=== PATIENT | female | born 1955 | race Hispanic/Latino ===

== ENCOUNTER 2017-12-04 18:04 | Emergency (ER) | payer OTHER ==
[2017-12-04 18:58] LABS: Absolute Lymphocytes (CBC) 2.3 K/uL (0.7-4.9); Absolute Monocytes 0.7 K/uL (0.1-1.3); Absolute Neutrophil 6.7 K/uL (1.8-8.0); Basophils % 0.6 % (0-1.3); Eosinophils % 0.9 % (0-4.4); Hematocrit 38.1 % (36.0-45.0); Lymphocytes % 23.3 % (15.3-44.8); MCH 31.8 pg (27.0-35.0); MCV 93.2 fL (80-100); MPV 9.8 fL (7.6-11.3); Monocytes % 6.7 % (3.3-12.3); RBC Red Blood Cell Count 4.09 M/uL (3.86-4.86)
[2017-12-04 19:14] LABS: Albumin 3.1 g/dL (3.4-5.0); Bilirubin Direct 0.1 mg/dL (0-0.2); Bilirubin Total 0.3 mg/dL (0.2-1.0); Potassium 4.2 mmol/L (3.5-5.1); Protein, Total 7.1 g/dL (6.4-8.2)
[2017-12-04 19:52] LABS: Urine Blood NEGATIVE (NEG); Urine Glucose 1+ (NEG); Urine Protein NEGATIVE (NEG); Urine Specific Gravity 1.015 (1.005-1.030)
[2017-12-04 20:05] LABS: Urine Bacteria <20 /HPF (<20); Urine Culture Reflex Order REFLEXED; Urine RBC <5 /HPF (NONE SEEN); Urine Yeast MANY (NONE SEEN)
[2017-12-04] MEDS ORDERED: NA CHLORIDE 0.9% 1,000 ML ONE (21:08)
[2017-12-04] MEDS ORDERED: KETOROLAC 30 MG/ML INJ ONE (21:08)
[2017-12-04] MEDS ORDERED: DIAZEPAM 2 MG TABLET ONE (22:09)
[2017-12-04] MEDS ORDERED: FLUCONAZOLE 100 MG TAB ONE (22:18)
--- NOTE | 2017-12-04 22:33 | EDPHYS ---
Physician Documentation [facility] Name: Liss Ro Age: 62 yrs Sex: Female : 1955 Arrival Date: 12/04/2017 Time: 18:08 Bed 26 Private MD: ED Physician Magnus Pitt HPI: 12/04 20:00 This 62 yrs old Female presents to ER via EMS with complaints of Shoulder pm1 Pain, High Blood Sugar. 20:00 The patient or guardian complains of decreased range of motion, pain. left scapular pm1 area. Context: The problem was sustained at home, resulted from an unknown reason, The patient experiences decreased range of motion, when attempts to raise arm, The patient reports no obvious deformity. Onset: The symptoms/episode began/occurred 2 day(s) ago. Modifying factors: the symptoms are alleviated by Resting left arm, The symptoms are aggravated by rotation of arm, movement of left arm. Associated signs and symptoms: Pertinent negatives: abdominal pain, chest pain, neck pain, Numbness in left arm shortness of breath, tingling, Weakness in left arm. Severity of symptoms: in the emergency department the symptoms are actually worse. Patient reports difficulty with managing her blood sugars. Patient reports some mild burning with urination. Historical: - Allergies: 18:11 Bactrim; kr2 18:11 Codeine; kr2 18:11 Flagyl; kr2 18:11 Morphine; kr2 18:11 tramadol; kr2 - Home Meds: 18:19 lisinopril 20 mg Oral tab 1 tab [Active]; amlodipine 10 mg tab 1 tab once daily rv [Active]; - PMHx: 18:11 Anxiety; Diabetes - IDDM; Herniated disc; Hypertension; Positional Vertigo; PTSD; kr2 - PSHx: 18:11 Hysterectomy; Cholecystectomy; Carpal Tunnel Repair; Eye surgery; kr2 - Immunization history:: Adult Immunizations unknown. - Social history:: Smoking status: Patient/guardian denies using tobacco. - Ebola Screening: : No symptoms or risks identified at this time. ROS: 20:00 Constitutional: Negative for fever, chills, and weight loss, Eyes: Negative for injury, pm1 pain, redness, and discharge, ENT: Negative for injury, pain, and discharge, Neck: Negative for injury, pain, and swelling, Cardiovascular: Negative for chest pain, palpitations, and edema, Respiratory: Negative for shortness of breath, cough, wheezing, and pleuritic chest pain, Abdomen/GI: Negative for abdominal pain, nausea, vomiting, diarrhea, and constipation. 20:00 MS/Extremity: Negative for injury and deformity, Skin: Negative for injury, rash, and discoloration, Neuro: Negative for headache, weakness, numbness, tingling, and seizure. 20:00 Back: Positive for of the left scapular area, Pain with movement of left arm. 20:00 : Positive for burning with urination, Negative for vaginal bleeding, vaginal discharge, vaginal itching. Exam: 20:00 Constitutional: This is a well developed, well nourished patient who is awake, alert, pm1 and in no acute distress. Head/Face: Normocephalic, atraumatic. Eyes: Pupils equal round and reactive to light, extra-ocular motions intact. Lids and lashes normal. Conjunctiva and sclera are non-icteric and not injected. Cornea within normal limits. Periorbital areas with no swelling, redness, or edema. ENT: Nares patent. No nasal discharge, no septal abnormalities noted. Tympanic membranes are normal and external auditory canals are clear. Oropharynx with no redness, swelling, or masses, exudates, or evidence of obstruction, uvula midline. Mucous membranes moist. Neck: Trachea midline, no thyromegaly or masses palpated, and no cervical lymphadenopathy. Supple, full range of motion without nuchal rigidity, or vertebral point tenderness. No Meningismus. Chest/axilla: Normal chest wall appearance and motion. Nontender with no deformity. No lesions are appreciated. Cardiovascular: Regular rate and rhythm with a normal S1 and S2. No gallops, murmurs, or rubs. Normal PMI, no JVD. No pulse deficits. Respiratory: Lungs have equal breath sounds bilaterally, clear to auscultation and percussion. No rales, rhonchi or wheezes noted. No increased work of breathing, no retractions or nasal flaring. Abdomen/GI: Soft, non-tender, with normal bowel sounds. No distension or tympany. No guarding or rebound. No evidence of tenderness throughout. 20:00 Skin: Warm, dry with normal turgor. Normal color with no rashes, no lesions, and no evidence of cellulitis. 20:00 Back: muscle spasm, is appreciated in the left scapular area. 20:00 Musculoskeletal/extremity: Extremities: grossly normal except: noted in the left scapular area and left shoulder: with palpation and passive rotation of left arm, Circulation is intact in all extremities. Pulses: noted to be 2+ in the left radial artery, the left arm Sensation intact. 20:00 Neuro: Orientation: is normal, Motor: is normal, moves all fours. Vital Signs: 18:16 BP 148 / 65; Pulse 102; Resp 18; Pulse Ox 100% on R/A; Weight 94.8 kg; Height 4 ft. 11 kr2 in. (149.86 cm); 20:03 BP 130 / 70; Pulse 99; Pulse Ox 98% on R/A; rv 20:57 BP 136 / 65; Pulse 118; Pulse Ox 97% on R/A; rv 21:52 BP 134 / 69; Pulse 100; Pulse Ox 99% on R/A; rv 18:16 Body Mass Index 42.21 (94.80 kg, 149.86 cm) kr2 MDM: 18:21 Patient medically screened. pm1 22:30 Data reviewed: vital signs. Data interpreted: Pulse oximetry: on room air is 99 %. pm1 Interpretation: normal. Counseling: I had a detailed discussion with the patient and/or guardian regarding: the historical points, exam findings, and any diagnostic results supporting the discharge/admit diagnosis, lab results, the need for outpatient follow up, to return to the emergency department if symptoms worsen or persist or if there are any questions or concerns that arise at home. 12/04 18:35 Order name: Basic Metabolic Panel pm1 12/04 18:35 Order name: CBC with Diff; Complete Time: 20:32 pm1 12/04 18:35 Order name: Hepatic Function; Complete Time: 20:32 pm1 12/04 18:35 Order name: Lipase; Complete Time: 20:32 pm1 12/04 18:35 Order name: Urine Microscopic Only; Complete Time: 20:32 pm1 12/04 18:36 Order name: Basic Metabolic Panel; Complete Time: 20:32 EDMS 12/04 18:35 Order name: IV Saline Lock; Complete Time: 18:50 pm1 12/04 19:47 Order name: Urine Dipstick--Ancillary (enter results); Complete Time: 20:32 mw2 12/04 20:07 Order name: Urine Culture EDAL 12/04 18:35 Order name: Labs collected and sent; Complete Time: 18:50 pm1 12/04 18:35 Order name: Urine Dipstick-Ancillary (obtain specimen); Complete Time: 19:55 pm1 Administered Medications: 18:51 Drug: NS 0.9% 1000 ml Route: IV; Rate: 1000 ml; Site: right antecubital; rv 19:55 Follow up: IV Status: Completed infusion rv 21:18 Drug: NS 0.9% 1000 ml Route: IV; Rate: 1000 ml; Site: right antecubital; rv 23:54 Follow up: Response: No adverse reaction; IV Status: Completed infusion rv 21:19 Drug: TORadol 30 mg Route: IVP; Site: right antecubital; rv 21:52 Follow up: Response: No adverse reaction; Pain is decreased rv 22:07 Drug: Valium 2 mg Route: PO; rv 22:56 Follow up: Response: No adverse reaction; Pain is decreased rv 22:20 Drug: DiFLUcan 150 mg Route: PO; rv 22:56 Follow up: Response: No adverse reaction rv Point of Care Testing: Blood Glucose: 18:18 Blood Glucose: 270 mg/dL; rv Ranges: Critical Glucose Levels:Adult <50 mg/dl or >400 mg/dl <40 mg/dl or >180 mg/dl Disposition: 12/04/17 22:32 Discharged to Home. Impression: Hyperglycemia, unspecified, Strain of muscle and tendon of back wall of thorax, Candidiasis of other urogenital sites. - Condition is Stable. - Discharge Instructions: Hyperglycemia, Muscle Strain, Vaginal Yeast Infection, Adult, Blood Glucose Monitoring, Adult. - Prescriptions for Valium 2 mg Oral Tablet - take 1 tablet by ORAL route every 8 hours As needed; 10 tablet. - Medication Reconciliation Form, Thank You Letter, Antibiotic Education, Prescription Opioid Use form. - Follow up: Emergency Department; When: As needed; Reason: Worsening of condition. Follow up: Private Physician; When: 2 - 3 days; Reason: Recheck today's complaints, Continuance of care, Re-evaluation by your physician. - Problem is new. - Symptoms have improved. Addendum: 12/07/2017 07:22 Co-signature as Attending Physician, Magnus Pitt MD I agree with the assessment and k dr plan of care. Signatures: Dispatcher [employer] EDMS Magnus Pitt MD MD [facility] Robin Lagunas NP GRAD INTERN pm1 Angelic Fonseca, RN RN kr2 Reji Le RN RN rv Corrections: (The following items were deleted from the chart) 12/04 22:57 22:32 12/04/2017 22:32 Discharged to Home. Impression: Hyperglycemia, unspecified; rv Strain of muscle and tendon of back wall of thorax; Candidiasis of other urogenital sites. Condition is Stable. Forms are Medication Reconciliation Form, Thank You Letter, Antibiotic Education, Prescription Opioid Use. Follow up: Emergency Department; When: As needed; Reason: Worsening of condition. Follow up: Private Physician; When: 2 - 3 days; Reason: Recheck today's complaints, Continuance of care, Re-evaluation by your physician. Problem is new. Symptoms have improved. pm1
--- NOTE | 2017-12-04 22:33 | ER ---
Nurse's Notes [facility] Name: Liss Ro Age: 62 yrs Sex: Female : 1955 Arrival Date: 12/04/2017 Time: 18:08 Bed 26 Private MD: Diagnosis: Hyperglycemia, unspecified;Strain of muscle and tendon of back wall of thorax;Candidiasis of other urogenital sites Presentation: 12/04 18:12 Presenting complaint: EMS states: patient complains of left shoulder pain, in the kr2 scapula area that she has had for 2 days but it has gotten worse. She has also had trouble controlling her blood sugar. At 3:30pm she took 10 units of Novolog, her blood sugar was 264 at 5:23pm and when we arrived on scene it was 316. Transition of care: patient was not received from another setting of care. Onset of symptoms was December 02, 2017. Risk Assessment: Do you want to hurt yourself or someone else? Patient reports no desire to harm self or others. Initial Sepsis Screen: Does the patient meet any 2 criteria? No. Patient's initial sepsis screen is negative. Does the patient have a suspected source of infection? No. Patient's initial sepsis screen is negative. Care prior to arrival: Medication(s) given: Normal saline infusion, IV initiated. 20 GA, in the left antecubital area. 18:12 Acuity: MALINI 3 kr2 18:12 Method Of Arrival: EMS: [facility] kr2 Triage Assessment: 18:16 General: Appears in no apparent distress. comfortable, obese, well groomed, Behavior is kr2 cooperative, anxious. Pain: Complains of pain in left scapular area Pain does not radiate. Pain currently is 6 out of 10 on a pain scale. Quality of pain is described as aching, Is continuous, Alleviated by nothing. Historical: - Allergies: 18:11 Bactrim; kr2 18:11 Codeine; kr2 18:11 Flagyl; kr2 18:11 Morphine; kr2 18:11 tramadol; kr2 - Home Meds: 18:19 lisinopril 20 mg Oral tab 1 tab [Active]; amlodipine 10 mg tab 1 tab once daily rv [Active]; - PMHx: 18:11 Anxiety; Diabetes - IDDM; Herniated disc; Hypertension; Positional Vertigo; PTSD; kr2 - PSHx: 18:11 Hysterectomy; Cholecystectomy; Carpal Tunnel Repair; Eye surgery; kr2 - Immunization history:: Adult Immunizations unknown. - Social history:: Smoking status: Patient/guardian denies using tobacco. - Ebola Screening: : No symptoms or risks identified at this time. Screenin:12 Abuse screen: Denies threats or abuse. Denies injuries from another. Nutritional kr2 screening: No deficits noted. Tuberculosis screening: No symptoms or risk factors identified. Fall Risk None identified. Assessment: 18:17 General: Appears in no apparent distress. comfortable, Behavior is calm, cooperative. rv Pain: Complains of pain in LEFT SHOULDER. Neuro: Level of Consciousness is awake, alert, obeys commands, Oriented to person, place, time, situation. Cardiovascular: Capillary refill < 3 seconds. Respiratory: Airway is patent. GI: No signs and/or symptoms were reported involving the gastrointestinal system. : No signs and/or symptoms were reported regarding the genitourinary system. EENT: No signs and/or symptoms were reported regarding the EENT system. Derm: Skin is intact. 18:20 Reassessment: PATIENT TOOK 10 UNITS OF NOVLOG AT 1533 AND ASPIRIN CHEWABLES 2 TABLETS rv AT 1650. 20:03 Reassessment: Patient appears in no apparent distress at this time. Patient and/or rv family updated on plan of care and expected duration. Pain level reassessed. Patient is alert, oriented x 3, equal unlabored respirations, skin warm/dry/pink. Vital Signs: 18:16 BP 148 / 65; Pulse 102; Resp 18; Pulse Ox 100% on R/A; Weight 94.8 kg; Height 4 ft. 11 kr2 in. (149.86 cm); 20:03 BP 130 / 70; Pulse 99; Pulse Ox 98% on R/A; rv 20:57 BP 136 / 65; Pulse 118; Pulse Ox 97% on R/A; rv 21:52 BP 134 / 69; Pulse 100; Pulse Ox 99% on R/A; rv 18:16 Body Mass Index 42.21 (94.80 kg, 149.86 cm) kr2 ED Course: 18:08 Patient arrived in ED. kr2 18:15 Triage completed. kr2 18:17 Robin Lagunas NP is PHCP. pm1 18:17 Magnus Pitt MD is Attending Physician. pm1 18:17 Arm band placed on. kr2 18:17 Patient has correct armband on for positive identification. Bed in low position. Call kr2 light in reach. Side rails up X2. Pulse ox on. NIBP on. Door closed. Warm blanket given. Head of bed elevated. 22:57 No provider procedures requiring assistance completed. IV discontinued, bleeding rv controlled, No redness/swelling at site. Pressure dressing applied. 23:54 Basic Metabolic Panel Sent. rv Administered Medications: 18:51 Drug: NS 0.9% 1000 ml Route: IV; Rate: 1000 ml; Site: right antecubital; rv 19:55 Follow up: IV Status: Completed infusion rv 21:18 Drug: NS 0.9% 1000 ml Route: IV; Rate: 1000 ml; Site: right antecubital; rv 23:54 Follow up: Response: No adverse reaction; IV Status: Completed infusion rv 21:19 Drug: TORadol 30 mg Route: IVP; Site: right antecubital; rv 21:52 Follow up: Response: No adverse reaction; Pain is decreased rv 22:07 Drug: Valium 2 mg Route: PO; rv 22:56 Follow up: Response: No adverse reaction; Pain is decreased rv 22:20 Drug: DiFLUcan 150 mg Route: PO; rv 22:56 Follow up: Response: No adverse reaction rv Point of Care Testing: Blood Glucose: 18:18 Blood Glucose: 270 mg/dL; rv Ranges: Outcome: 22:32 Discharge ordered by MD. pm1 22:57 Discharged to home ambulatory. rv 22:57 Condition: improved 22:57 Discharge instructions given to patient, Instructed on discharge instructions, follow up and referral plans. medication usage, Prescriptions given X 1. 22:57 Patient left the ED. rv Signatures: Robin Lagunas, JADEN FIELD SUPPORT ENGINEER pm1 Angelic Fonseca RN RN kr2 Reji Le, RN RN rv
[2017-12-04 23:05] VITALS: BP 134/69; O2SAT 99
== END 2017-12-04 22:57 | disposition home or self-care (01) ==
LOC: ER 18:04
DX: E11.65 Type 2 diabetes mellitus with hyperglycemia (principal); S29.012A Strain of muscle and tendon of back wall of thorax, initial encounter; B37.49 Other urogenital candidiasis; I10 Essential (primary) hypertension; F41.9 Anxiety disorder, unspecified; Z88.1 Allergy status to other antibiotic agents; Z88.5 Allergy status to narcotic agent; Z88.6 Allergy status to analgesic agent; Z88.8 Allergy status to other drugs, medicaments and biological substances
CPT/HCPCS: 36415; 80048; 80076; 83690; 85025; 87086; 87088; 96361; 96374; 99284; J7030; 81003; 81015; 82962

== ENCOUNTER 2018-03-02 02:04 | Emergency (ER) | payer OTHER ==
--- NOTE | 2018-03-02 02:26 | EDPHYS ---
Physician Documentation [facility] Name: Liss Ro Age: 62 yrs Sex: Female : 1955 Arrival Date: 03/02/2018 Time: 02:05 Bed 18 Private MD: ED Physician Donnie Chávez HPI: 03/02 02:36 This 62 yrs old Female presents to ER via EMS with complaints of Toothache. snw 02:36 The patient presents with broken tooth/teeth. The problem is located in the lower right snw second molar (#31). Onset: The symptoms/episode began/occurred gradually, 1 month(s) ago, and became worse and became persistent. Duration: The symptoms are continuous. Associated signs and symptoms: Pertinent positives: pain. Severity of symptoms: At their worst the symptoms were moderate, severe. The patient has experienced a previous episode. The patient has not recently seen a physician, the patient's primary care provider is Dr. Brooklyn Valderrama. Pt very agitated and demanding pain medication. States she took a little codeine even though she is allergic because the pain is so bad. Pt interviewed as to what medications have worked for her in the past and she said whatever she was given here before for back pain. Records indicate she was given Toradol. Pt states she will f/u with Dentist "when I can". Historical: - Allergies: 02:06 Bactrim; ak1 02:06 Codeine; ak1 02:06 tramadol; ak1 02:06 Morphine; ak1 02:06 Flagyl; ak1 - Home Meds: 02:06 amlodipine 10 mg tab 1 tab once daily [Active]; lisinopril 20 mg Oral tab 1 tab ak1 [Active]; - PMHx: 02:06 Anxiety; Diabetes - IDDM; Herniated disc; Hypertension; Positional Vertigo; PTSD; ak1 - PSHx: 02:06 Hysterectomy; Carpal Tunnel Repair; Eye surgery; Cholecystectomy; ; ak1 - Immunization history:: Adult Immunizations unknown. - Social history:: Smoking status: Patient/guardian denies using tobacco. - Ebola Screening: : No symptoms or risks identified at this time. ROS: 02:35 Constitutional: Negative for fever, chills, and weight loss, Eyes: Negative for injury, snw pain, redness, and discharge, Neck: Negative for injury, pain, and swelling, Cardiovascular: Negative for chest pain, palpitations, and edema, Respiratory: Negative for shortness of breath, cough, wheezing, and pleuritic chest pain, Abdomen/GI: Negative for abdominal pain, nausea, vomiting, diarrhea, and constipation, Back: Negative for injury and pain, : Negative for injury, bleeding, discharge, and swelling, MS/Extremity: Negative for injury and deformity, Skin: Negative for injury, rash, and discoloration, Neuro: Negative for headache, weakness, numbness, tingling, and seizure. 02:35 ENT: Positive for dental pain. Exam: 02:34 Constitutional: This is a well developed, well nourished patient who is awake, alert, snw and in no acute distress. Head/Face: Normocephalic, atraumatic. Eyes: Pupils equal round and reactive to light, extra-ocular motions intact. Lids and lashes normal. Conjunctiva and sclera are non-icteric and not injected. Cornea within normal limits. Periorbital areas with no swelling, redness, or edema. Neck: Trachea midline, no thyromegaly or masses palpated, and no cervical lymphadenopathy. Supple, full range of motion without nuchal rigidity, or vertebral point tenderness. No Meningismus. Chest/axilla: Normal chest wall appearance and motion. Nontender with no deformity. No lesions are appreciated. Cardiovascular: Tachycardic rate and rhythm with a normal S1 and S2. No gallops, murmurs, or rubs. Normal PMI, no JVD. No pulse deficits. Respiratory: Lungs have equal breath sounds bilaterally, clear to auscultation and percussion. No rales, rhonchi or wheezes noted. No increased work of breathing, no retractions or nasal flaring. Abdomen/GI: Soft, non-tender, with normal bowel sounds. No distension or tympany. No guarding or rebound. No evidence of tenderness throughout. Back: No spinal tenderness. No costovertebral tenderness. Full range of motion. Skin: Warm, dry with normal turgor. Normal color with no rashes, no lesions, and no evidence of cellulitis. MS/ Extremity: Pulses equal, no cyanosis. Neurovascular intact. Full, normal range of motion. Neuro: Awake and alert, GCS 15, oriented to person, place, time, and situation. Cranial nerves II-XII grossly intact. Motor strength 5/5 in all extremities. Sensory grossly intact. Cerebellar exam normal. Normal gait. Psych: Awake, alert, with orientation to person, place and time. Behavior, mood, and affect are within normal limits. 02:34 ENT: Nose: is normal, Mouth: is normal, Dental exam: dental caries, that is moderate, specifically in the lower right second bicuspid (#29), lower right first molar (#30) and lower right second molar (#31). Vital Signs: 02:06 BP 145 / 51; Pulse 109; Resp 18; Temp 99(O); Pulse Ox 99% on R/A; Weight 86.64 kg (R); ak1 Height 4 ft. 11 in. (149.86 cm) (R); Pain 10/10; 02:54 BP 154 / 74; Pulse 102; Resp 18; Pulse Ox 97% on R/A; jb4 02:06 Body Mass Index 38.58 (86.64 kg, 149.86 cm) ak1 MDM: 02:05 Patient medically screened. pkl 02:34 Data reviewed: vital signs, nurses notes. Data interpreted: Pulse oximetry: on room air snw is 99 %. Interpretation: normal. Counseling: I had a detailed discussion with the patient and/or guardian regarding: the historical points, exam findings, and any diagnostic results supporting the discharge/admit diagnosis, the presence of at least one elevated blood pressure reading (>120/80) during this emergency department visit, the need for outpatient follow up, to return to the emergency department if symptoms worsen or persist or if there are any questions or concerns that arise at home. Special discussion: I have referred the patient to see his PCP for further evaluation of high blood pressure. Based on the history and exam findings, there is no indication for further emergent testing or inpatient evaluation. I discussed with the patient/guardian the need to see a dentist for further evaluation of the symptoms. I discussed with the patient/guardian the need to see the primary care provider for further evaluation of the symptoms. Administered Medications: 02:49 Drug: TORadol 60 mg Route: IM; Site: right gluteus; jb4 02:50 Follow up: Response: No adverse reaction; Pain is decreased jb4 02:49 Drug: GI Cocktail without - (Maalox Suspension 30 ml, Lidocaine Liquid 2 % 15 jb4 ml) Route: PO; 02:50 Follow up: Response: No adverse reaction; Pain is decreased jb4 02:49 Drug: Augmentin 875 mg Route: PO; jb4 02:50 Follow up: Response: No adverse reaction jb4 Disposition: 05:34 Co-signature as Attending Physician, Donnie Chávez MD. karina Disposition: 03/02/18 02:25 Discharged to Home. Impression: Dental root caries. - Condition is Stable. - Discharge Instructions: Dental Caries, Adult, Dental Pain, Diet and Dental Disease, Preventive Dental Care, Adult. - Prescriptions for chlorhexidine gluconate 0.12 % Mucous Membrane mouthwash - place 15 milliliter by MUCOUS MEMBRANE route 2 times per day after brushing teeth, swish in mouth for 30 seconds then spit out; 480 milliliter. Amoxicillin 875 mg Oral Tablet - take 1 tablet by ORAL route every 12 hours for 10 days; 20 tablet. Diclofenac Sodium 75 mg Oral Tablet, Delayed Release (E.C.) - take 1 tablet by ORAL route 2 times per day; 10 tablet. - Medication Reconciliation Form, Thank You Letter, Antibiotic Education, Prescription Opioid Use form. - Follow up: Private Physician; When: 2 - 3 days; Reason: Recheck today's complaints, Continuance of care, Re-evaluation by your physician. Follow up: Emergency Department; When: As needed; Reason: Worsening of condition. - Notes: Dental wax to painful area as needed Signatures: Donnie Chávez MD MD pkl [place], SALES RESEARCH ANALYST-C SALES RESEARCH ANALYST-Csnw Keke Mcbride RN RN ak1 Shorty Vargas RN RN jb4 Corrections: (The following items were deleted from the chart) 02:55 02:25 03/02/2018 02:25 Discharged to Home. Impression: Dental root caries. Condition is jb4 Stable. Forms are Medication Reconciliation Form, Thank You Letter, Antibiotic Education, Prescription Opioid Use. Follow up: Private Physician; When: 2 - 3 days; Reason: Recheck today's complaints, Continuance of care, Re-evaluation by your physician. Follow up: Emergency Department; When: As needed; Reason: Worsening of condition. snw
--- NOTE | 2018-03-02 02:26 | ER ---
Nurse's Notes [facility] Name: Liss Ro Age: 62 yrs Sex: Female : 1955 Arrival Date: 03/02/2018 Time: 02:05 Bed 18 Private MD: Diagnosis: Dental root caries Presentation: 03/02 02:05 Presenting complaint: Patient states: right lower tooth pain started tonight. pt took ak1 Tylenol with codeine even tho pt is allergic to codine. Transition of care: patient was not received from another setting of care. Onset of symptoms is unknown. Risk Assessment: Do you want to hurt yourself or someone else? Patient reports no desire to harm self or others. Initial Sepsis Screen: Does the patient meet any 2 criteria? No. Patient's initial sepsis screen is negative. Does the patient have a suspected source of infection? No. Patient's initial sepsis screen is negative. Care prior to arrival: None. 02:05 Method Of Arrival: EMS: [facility] ak1 02:05 Acuity: MALINI 4 ak1 Triage Assessment: 02:06 General: Appears in no apparent distress. Behavior is calm, cooperative. Pain: ak1 Complains of pain in mouth. 02:08 EENT: Reports pain in mouth. ak1 Historical: - Allergies: 02:06 Bactrim; ak1 02:06 Codeine; ak1 02:06 tramadol; ak1 02:06 Morphine; ak1 02:06 Flagyl; ak1 - Home Meds: 02:06 amlodipine 10 mg tab 1 tab once daily [Active]; lisinopril 20 mg Oral tab 1 tab ak1 [Active]; - PMHx: 02:06 Anxiety; Diabetes - IDDM; Herniated disc; Hypertension; Positional Vertigo; PTSD; ak1 - PSHx: 02:06 Hysterectomy; Carpal Tunnel Repair; Eye surgery; Cholecystectomy; ; ak1 - Immunization history:: Adult Immunizations unknown. - Social history:: Smoking status: Patient/guardian denies using tobacco. - Ebola Screening: : No symptoms or risks identified at this time. Screenin:07 Abuse screen: Denies threats or abuse. Denies injuries from another. Nutritional ak1 screening: No deficits noted. Tuberculosis screening: No symptoms or risk factors identified. Fall Risk None identified. Assessment: 02:07 General: Appears in no apparent distress. uncomfortable, Behavior is calm, cooperative, jb4 appropriate for age. Pain: Complains of pain in toothache, soar throat Pain does not radiate. Pain currently is 6 out of 10 on a pain scale. at worst was 10 out of 10 on a pain scale. Neuro: Level of Consciousness is awake, alert, obeys commands, Oriented to person, place, time, situation. Cardiovascular: Patient's skin is warm and dry. Respiratory: Airway is patent Respiratory effort is even, unlabored, Respiratory pattern is regular, symmetrical. GI: No signs and/or symptoms were reported involving the gastrointestinal system. : No signs and/or symptoms were reported regarding the genitourinary system. EENT: Oral mucosa is moist. Dental caries noted in lower right second bicuspid (#29), lower right first molar (#30) and lower right second molar (#31) Throat is reddened has enlarged tonsils. Derm: Skin is intact, Skin is dry, Skin is normal, Skin temperature is warm. Musculoskeletal: Circulation, motion, and sensation intact. 02:54 Reassessment: Patient appears in no apparent distress at this time. Patient and/or jb4 family updated on plan of care and expected duration. Pain level reassessed. Patient is alert, oriented x 3, equal unlabored respirations, skin warm/dry/pink. discussed D/c, F/u with pt, denies questions or concerns. Vital Signs: 02:06 BP 145 / 51; Pulse 109; Resp 18; Temp 99(O); Pulse Ox 99% on R/A; Weight 86.64 kg (R); ak1 Height 4 ft. 11 in. (149.86 cm) (R); Pain 10/10; 02:54 BP 154 / 74; Pulse 102; Resp 18; Pulse Ox 97% on R/A; jb4 02:06 Body Mass Index 38.58 (86.64 kg, 149.86 cm) ak1 ED Course: 02:05 Patient arrived in ED. ak1 02:05 Donnie Chávez MD is Attending Physician. pkl 02:06 Triage completed. ak1 02:06 Arm band placed on Patient placed in an exam room, on a stretcher, on pulse oximetry, ak1 Patient notified of wait time. 02:07 Shorty Vargas, RN is Primary Nurse. jb4 02:07 Patient has correct armband on for positive identification. Bed in low position. Call ak1 light in reach. Side rails up X 1. Pulse ox on. NIBP on. 02:22 Madison Polk FNP-C is PHCP. snw 02:54 No provider procedures requiring assistance completed. Patient did not have IV access jb4 during this emergency room visit. Administered Medications: 02:49 Drug: TORadol 60 mg Route: IM; Site: right gluteus; jb4 02:50 Follow up: Response: No adverse reaction; Pain is decreased jb4 02:49 Drug: GI Cocktail without - (Maalox Suspension 30 ml, Lidocaine Liquid 2 % 15 jb4 ml) Route: PO; 02:50 Follow up: Response: No adverse reaction; Pain is decreased jb4 02:49 Drug: Augmentin 875 mg Route: PO; jb4 02:50 Follow up: Response: No adverse reaction jb4 Outcome: 02:25 Discharge ordered by . snw 02:54 Discharged to home ambulatory. jb4 02:54 Condition: stable 02:54 Discharge instructions given to patient, Instructed on discharge instructions, follow up and referral plans. medication usage, Demonstrated understanding of instructions, follow-up care, medications, Prescriptions given X 3. 02:55 Patient left the ED. jb4 Signatures: Donnie Chávez MD MD pkl Therrien, Shelly, FNP-C [employer] Keke Mcbride RN RN ak1 Shorty Vargas, RN RN jb4
[2018-03-02] MEDS ORDERED: AMOX/K CLAV 875 MG TAB ONE (02:39)
[2018-03-02] MEDS ORDERED: MAGNE/ALUM HYDROXD 30 ML UCUP ONE (02:39)
[2018-03-02] MEDS ORDERED: LIDOCAINE VISCOUS 2% SOLN 15 ML UDC ONE (02:40)
[2018-03-02] MEDS ORDERED: KETOROLAC 30 MG/ML INJ ONE (02:40)
[2018-03-02 03:00] VITALS: TEMP 99
[2018-03-02 03:02] VITALS: BP 154/74; O2SAT 97
== END 2018-03-02 02:55 | disposition home or self-care (01) ==
LOC: ER 02:04
DX: K02.7 Dental root caries (principal); I10 Essential (primary) hypertension; E11.9 Type 2 diabetes mellitus without complications; Z88.1 Allergy status to other antibiotic agents; Z88.6 Allergy status to analgesic agent
CPT/HCPCS: 96372; 99284

== ENCOUNTER 2018-03-25 16:24 | Emergency (ER) | payer OTHER ==
--- NOTE | 2018-03-25 19:34 | EDPHYS ---
Physician Documentation [facility] Name: Liss Ro Age: 62 yrs Sex: Female : 1955 Arrival Date: 03/25/2018 Time: 16:25 Bed 7 Private MD: ED Physician Jem Sanon HPI: 03/25 16:37 This 62 yrs old Female presents to ER via EMS with complaints of High Blood ma2 Pressure. 16:37 Onset: The symptoms/episode began/occurred gradually, 1 hour(s) ago. Associated signs ma2 and symptoms: Pertinent positives: Pertinent negatives: chest pain, dizziness, dyspnea, headache, lightheadedness, nausea, visual changes, vomiting, weakness. Severity of symptoms: At its worst the blood pressure was mild, in the emergency department the blood pressure is improved. The patient has experienced similar episodes in the past. Historical: - Allergies: 16:31 Bactrim; jl7 16:31 Codeine; jl7 16:31 Flagyl; jl7 16:31 Morphine; jl7 16:31 tramadol; jl7 - Home Meds: 16:31 amlodipine 10 mg tab 1 tab once daily [Active]; lisinopril 20 mg Oral tab 1 tab jl7 [Active]; Humalog Sub-Q [Active]; Lantus Sub-Q [Active]; - PMHx: 16:31 Anxiety; Diabetes - IDDM; Herniated disc; Hypertension; Positional Vertigo; PTSD; jl7 - Immunization history:: Adult Immunizations unknown. - Social history:: Smoking status: Patient/guardian denies using tobacco, Patient/guardian denies using alcohol, street drugs, The patient lives alone. - Ebola Screening: : No symptoms or risks identified at this time. - Family history:: not pertinent. - Hospitalizations: : No recent hospitalization is reported. ROS: 16:37 Constitutional: Negative for fever, chills, and weight loss, Neck: Negative for injury, ma2 pain, and swelling, Cardiovascular: Negative for chest pain, palpitations, and edema, Respiratory: Negative for shortness of breath, cough, wheezing, and pleuritic chest pain. 16:37 All other systems are negative. Exam: 16:37 Constitutional: This is a well developed, well nourished patient who is awake, alert, ma2 and in no acute distress. Chest/axilla: Normal chest wall appearance and motion. Nontender with no deformity. No lesions are appreciated. Cardiovascular: Regular rate and rhythm with a normal S1 and S2. No gallops, murmurs, or rubs. Normal PMI, no JVD. No pulse deficits. Respiratory: Lungs have equal breath sounds bilaterally, clear to auscultation and percussion. No rales, rhonchi or wheezes noted. No increased work of breathing, no retractions or nasal flaring. Abdomen/GI: Soft, non-tender, with normal bowel sounds. No distension or tympany. No guarding or rebound. No evidence of tenderness throughout. MS/ Extremity: Pulses equal, no cyanosis. Neurovascular intact. Full, normal range of motion. Neuro: Awake and alert, GCS 15, oriented to person, place, time, and situation. Cranial nerves II-XII grossly intact. Motor strength 5/5 in all extremities. Sensory grossly intact. Cerebellar exam normal. Normal gait. Psych: Awake, alert, with orientation to person, place and time. Behavior, mood, and affect are within normal limits. Vital Signs: 16:25 BP 159 / 68; Pulse 104; Resp 16 S; Temp 98.8(O); Pulse Ox 98% on R/A; Weight 86.18 kg jl7 (R); Height 4 ft. 11 in. (149.86 cm) (R); Pain 0/10; 19:50 BP 135 / 73; Pulse 93; Resp 18; Temp 98.7; Pulse Ox 98% on R/A; ak1 16:25 Body Mass Index 38.37 (86.18 kg, 149.86 cm) jl7 MDM: 16:26 Patient medically screened. mi2 16:37 Differential diagnosis: e;evated BP, no other symptoms. ma2 18:54 Data reviewed: vital signs, nurses notes. Counseling: I had a detailed discussion with ma2 the patient and/or guardian regarding: the historical points, exam findings, and any diagnostic results supporting the discharge/admit diagnosis, the presence of at least one elevated blood pressure reading (>120/80) during this emergency department visit, the need for outpatient follow up. Response to treatment: the patient's symptoms have resolved after treatment. 03/25 16:37 Order name: Accucheck Blood Glucose: q 30 min x 3; Complete Time: 16:40 ma2 Administered Medications: No medications were administered Point of Care Testing: Blood Glucose: 16:25 Blood Glucose: 176 mg/dL; jl7 17:32 Blood Glucose: 103 mg/dL; bp 18:55 Blood Glucose: 72 mg/dL; jl7 19:50 Blood Glucose: 151 mg/dL; ak1 Ranges: Critical Glucose Levels:Adult <50 mg/dl or >400 mg/dl <40 mg/dl or >180 mg/dl Disposition: 03/25/18 19:33 Discharged to Home. Impression: Hyperglycemia, unspecified. - Condition is Stable. - Discharge Instructions: Hyperglycemia. - Medication Reconciliation Form, Thank You Letter, Antibiotic Education, Prescription Opioid Use form. - Follow up: Private Physician; When: Tomorrow; Reason: Continuance of care. Signatures: Keke Mcbride RN RN ak1 Azalia Rothman RN RN jl7 Jem Sanon MD MD ma2 Corrections: (The following items were deleted from the chart) 19:52 19:33 03/25/2018 19:33 Discharged to Home. Impression: Hyperglycemia, unspecified. ak1 Condition is Stable. Forms are Medication Reconciliation Form, Thank You Letter, Antibiotic Education, Prescription Opioid Use. Follow up: Private Physician; When: Tomorrow; Reason: Continuance of care. ma2
--- NOTE | 2018-03-25 19:34 | ER ---
Nurse's Notes [facility] Name: Liss Ro Age: 62 yrs Sex: Female : 1955 Arrival Date: 03/25/2018 Time: 16:25 Bed 7 Private MD: Diagnosis: Hyperglycemia, unspecified Presentation: 03/25 16:27 Presenting complaint: EMS states: Pt checked BGL at it was 535, she took 24 units of jl7 Humalog and 3 hours prior to that she took 22 units of Humalog. Pt is concerned her sugar is too low. BGL was 235 on arrival, pt appears anxious. Transition of care: patient was not received from another setting of care. Onset of symptoms was March 25, 2018. Risk Assessment: Do you want to hurt yourself or someone else? Patient reports no desire to harm self or others. Initial Sepsis Screen: Does the patient meet any 2 criteria? No. Patient's initial sepsis screen is negative. Does the patient have a suspected source of infection? No. Patient's initial sepsis screen is negative. Care prior to arrival: Glucose check: 235. 16:27 Method Of Arrival: EMS: [facility] 16:27 Acuity: MALINI 3 jl7 Triage Assessment: 16:31 General: Appears in no apparent distress. uncomfortable, Behavior is appropriate for jl7 age, anxious. Pain: Denies pain. Neuro: Level of Consciousness is awake, alert, obeys commands, Oriented to person, place, time, situation. Cardiovascular: Patient's skin is warm and dry. Respiratory: Airway is patent Respiratory effort is even, unlabored, Respiratory pattern is regular, symmetrical. Derm: Skin is pink, warm \T\ dry. Historical: - Allergies: 16:31 Bactrim; jl7 16:31 Codeine; jl7 16:31 Flagyl; jl7 16:31 Morphine; jl7 16:31 tramadol; jl7 - Home Meds: 16:31 amlodipine 10 mg tab 1 tab once daily [Active]; lisinopril 20 mg Oral tab 1 tab jl7 [Active]; Humalog Sub-Q [Active]; Lantus Sub-Q [Active]; - PMHx: 16:31 Anxiety; Diabetes - IDDM; Herniated disc; Hypertension; Positional Vertigo; PTSD; jl7 - Immunization history:: Adult Immunizations unknown. - Social history:: Smoking status: Patient/guardian denies using tobacco, Patient/guardian denies using alcohol, street drugs, The patient lives alone. - Ebola Screening: : No symptoms or risks identified at this time. - Family history:: not pertinent. - Hospitalizations: : No recent hospitalization is reported. Screenin:34 Abuse screen: Denies threats or abuse. Denies injuries from another. Nutritional jl7 screening: No deficits noted. Tuberculosis screening: No symptoms or risk factors identified. 18:30 Fall Risk None identified. jl7 Assessment: 16:34 General: See triage assessment. jl7 17:30 Reassessment: No changes from previously documented assessment. Patient and/or family jl7 updated on plan of care and expected duration. Pain level reassessed. Patient is alert, oriented x 3, equal unlabored respirations, skin warm/dry/pink. 18:30 Reassessment: No changes from previously documented assessment. Patient and/or family jl7 updated on plan of care and expected duration. Pain level reassessed. Patient is alert, oriented x 3, equal unlabored respirations, skin warm/dry/pink. 19:23 Reassessment: pt eating a turkey sandwich and fruit cup for her [id number]. ak1 Vital Signs: 16:25 BP 159 / 68; Pulse 104; Resp 16 S; Temp 98.8(O); Pulse Ox 98% on R/A; Weight 86.18 kg jl7 (R); Height 4 ft. 11 in. (149.86 cm) (R); Pain 0/10; 19:50 BP 135 / 73; Pulse 93; Resp 18; Temp 98.7; Pulse Ox 98% on R/A; ak1 16:25 Body Mass Index 38.37 (86.18 kg, 149.86 cm) jl7 ED Course: 16:25 Patient arrived in ED. ds1 16:25 Arm band placed on right wrist. jl7 16:26 Jem Sanon MD is Attending Physician. ma2 16:27 Azalia Rothman RN is Primary Nurse. jl7 16:29 Triage completed. jl7 16:34 Patient has correct armband on for positive identification. Bed in low position. Call jl7 light in reach. Side rails up X2. Pulse ox on. NIBP on. 18:30 No provider procedures requiring assistance completed. jl7 19:08 Primary Nurse role handed off by Azalia Rothman RN jl7 19:23 Keke Mcbride, RN is Primary Nurse. ak1 19:50 Patient did not have IV access during this emergency room visit. ak1 Administered Medications: No medications were administered Point of Care Testing: Blood Glucose: 16:25 Blood Glucose: 176 mg/dL; jl7 17:32 Blood Glucose: 103 mg/dL; bp 18:55 Blood Glucose: 72 mg/dL; jl7 19:50 Blood Glucose: 151 mg/dL; ak1 Ranges: Outcome: 19:33 Discharge ordered by . ma2 19:43 Discharged to home ambulatory. ak1 19:43 Condition: good 19:43 Discharge instructions given to patient, Instructed on discharge instructions, follow up and referral plans. Demonstrated understanding of instructions, follow-up care. 19:52 Patient left the ED. ak1 Signatures: Maty Fay ds1 Keke Mcbride RN RN ak1 Azalia Rothman RN RN jl7 Peltier, Brian, RN RN Jem Triplett MD MD [facility]
[2018-03-25 20:00] VITALS: O2SAT 98
[2018-03-25 20:01] VITALS: BP 135/73; TEMP 98.7
== END 2018-03-25 19:52 | disposition home or self-care (01) ==
LOC: ER 16:24
DX: E11.65 Type 2 diabetes mellitus with hyperglycemia (principal); I10 Essential (primary) hypertension; F43.10 Post-traumatic stress disorder, unspecified; Z79.4 Long term (current) use of insulin; Z88.1 Allergy status to other antibiotic agents; Z88.5 Allergy status to narcotic agent; Z88.6 Allergy status to analgesic agent
CPT/HCPCS: 82962; 99283

== ENCOUNTER 2019-10-31 23:24 | Emergency (ER) | payer OTHER ==
--- OUTSIDE RECORDS SUMMARY | 2019-10-31 23:27 | XMS REPORT | Summary of Care ---
:1955 Author Organization [facility] Address [address] [place] [address] Care Team Providers Name Role Phone Magnus Martin MD Unavailable Avani Lozano MD Unavailable Unavailable LILIBETH Djeesus Primary Care Provider Reason for Visit Reason Comments Assessment Encounter Details Date Type Department Care Team Description 08/03/2019 Telephone [facility] Pediatric and Julianna White MD Assessment Adult Primary Care- [address] [place] [address] 146 [facility] , [address] [place] [address] Allergies Active Allergy Reactions Severity Noted Date Comments Sulfamethoxazole-Trimetho Unknown - See 12/08/2006 prim comments Codeine Unknown - See 12/08/2006 Patient states it comments makes her feel worse, pain increases Metronidazole Other - See comments 05/24/2015 Throat swelling Morphine Anxiety 12/06/2017 Promethazine Hcl Nausea and/or 05/05/2011 Vomiting Tramadol Anxiety 06/24/2016 Pt felt "weird" documented as of this encounter (statuses as of 08/03/2019) Medications Medication Sig Dispensed Refills Start Date End Date Status aspirin 81 mg chewable Take 81 mg by 0 Active tablet mouth daily. ibuprofen (MOTRIN) 800 Take 1 Tab by 0 08/17/2012 Active mg tablet mouth as needed. mupirocin (BACTROBAN) Apply to area(s) 1 Tube 2 04/18/2013 Active 2 % 3 (three) times ointmentIndications: daily. Skin lesion of face albuterol (PROAIR HFA) Inhale 2 Puffs 1 Inhaler 1 2013 Active 90 mcg/actuation every 6 (six) inhalerIndications: hours as needed Cough for Wheezing or Shortness of Breath (prescribe with aerochamber (spacer)). chlorhexidine 0.12 % Swish and spit 0 09/02/2016 Active mouthwash out 5 mL daily. cetirizine-psuedoephed Take 1 tablet by 0 Active rine (ZYRTEC-D) 5-120 mouth 2 (two) mg per tablet times daily. cyclobenzaprine 10 mg Take 1 tablet by 15 tablet 0 04/13/2018 Active tablet mouth 2 (two) times daily as needed for Muscle Spasms. indomethacin 50 mg Take 1 capsule by 30 capsule 0 09/01/2018 Active capsuleIndications: mouth 3 (three) Dental abscess times daily with meals as needed for Pain. dicyclomine (BENTYL) Take 1 tablet by 20 tablet 0 09/02/2018 Active 20 mg mouth 4 (four) tabletIndications: times daily as Abdominal pain, needed for unspecified abdominal Abdominal pain. location, Ventral hernia without obstruction or gangrene Insulin [place], USE DIRECTED 400 Each 3 12/10/2018 Active Disposable, (MAMI PEN FIVE TIMES A NEEDLE) 32 gauge x DAY " NdleIndications: Diabetes mellitus type 2, uncontrolled, without complications atorvastatin 20 mg TAKE 1/2 45 tablet 3 12/10/2018 Active tabletIndications: (ONE-HALF) TABLET Hyperlipidemia, BY MOUTH ONCE unspecified DAILY hyperlipidemia type busPIRone 10 mg Take 1 tablet by 60 tablet 2 12/15/2018 Active tabletIndications: mouth 2 (two) Anxiety and depression times daily. omeprazole 40 mg Take 1 capsule by 30 capsule 3 12/21/2018 Active capsuleIndications: mouth daily. Gastroesophageal reflux disease, esophagitis presence not specified Blood-Glucose Meter Use to check 1 Each 0 03/16/2019 Active ([employer] [facility] VERIO IQ blood sugar 3X METER) Kit daily. DX:E11.65 lisinopril 20 mg Take 1 tablet by 180 tablet 3 05/06/2019 Active tabletIndications: mouth 2 (two) Essential times daily. Dx: hypertension, benign E11.65 insulin lispro Up to 30 units 3 Box 3 05/06/2019 Active (HUMALOG KWIKPEN three times daily INSULIN) 100 unit/mL according to pen sliding scale DX: injectorIndications: E11.65 Diabetes mellitus type 2, uncontrolled, without complications blood sugar diagnostic Use to check 400 Strip 1 05/06/2019 Active (ONETOUCH VERIO) strip blood sugar QID daily. DX:E11.65 Insulin Glargine inject 14 Units 15 mL 1 05/09/2019 Active (LANTUS SOLOSTAR U-100 under the skin INSULIN) 100 unit/mL daily. 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 DX:E11.65 amLODIPine 10 mg Take 1 tablet by 60 tablet 1 07/05/2019 Active tabletIndications: mouth daily. Essential hypertension, benign clobetasoL 0.05 % Apply to area(s) 30 g 0 07/29/2019 Active creamIndications: 2 (two) times Dermatitis daily. hydrOXYzine 25 mg Take 1 tablet by 30 tablet 0 08/01/2019 Active tabletIndications: mouth 3 (three) Dermatitis times daily as needed for Itching. valACYclovir 1 gram Take 1 tablet by 30 tablet 0 08/01/2019 Active tabletIndications: mouth 3 (three) 0 Atypical rash times daily for 10 days. For shingles Hospital, Clinic, or Other Ordered Dose Route Frequency Start Date End Date Status Facility Administered Medication DOBUTamine (DOBUTREX) 500 mg 460.5 mcg/min IV TITRATE 017 Active in 250mL(Fixed Dose) D5W infusionIndications: Chest pain, unspecified documented as of this encounter (statuses as of 08/03/2019) Active Problems Problem Noted Date Morbid obesity with body mass index of 40.0-49.9 07/18 Morbid obesity with body mass index of 50 or higher DAVIS (obstructive sleep apnea) 08/22/2015 Vulvar lesion 05/30/2015 Bacterial vaginosis 05/23/2015 Postmenopausal status 05/22/2015 Lichen sclerosus 05/22/2015 Postmenopausal atrophic vaginitis 05/22/2015 H/O: hysterectomy 05/22/2015 Mixed incontinence 05/22/2015 Obesity 01/16/2013 Overview: ICD10 Diagnosis Term Community Educator Utility Elevated alkaline phosphatase level 09/08/2012 Dizziness 02/12/2011 Vertigo of central origin 02/12/2011 Gait disturbance 02/12/2011 BPPV (benign paroxysmal positional vertigo) 02/12/2011 Vitamin D deficiency 02/18/2010 HLD (hyperlipidemia) 05/09/2009 Overview: ICD10 Diagnosis Term Community Educator Utility Other malaise and fatigue 02/06/2009 Hirsutism 02/06/2009 Chest pain 11/09/2008 Inflamed seborrheic keratosis 12/08/2006 Anxiety state 12/08/2006 Overview: ICD10 Diagnosis Term Community Educator Utility Esophageal reflux 12/08/2006 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 Other chronic pain 12/08/2006 Overview: Lower back Essential hypertension, benign 12/08/2006 Dizziness and giddiness 12/08/2006 Overview: positional Pain in joint, lower leg 12/08/2006 Overview: Knee problem Diabetes mellitus type 2, uncontrolled, without compli cations 12/08/2006 Overview: ICD10 Diagnosis Term Community Educator Utility documented as of this encounter (statuses as of 08/03/2019) Resolved Problems Problem Noted Date Resolved Date Vaginal lesion 05/22/2015 05/30/2015 documented as of this encounter (statuses as of 08/03/2019) Immunizations Name Administration Dates Next Due Influenza Virus Vaccine 02/06/2009 Tdap 05/22/2015 documented as of this encounter Social History Tobacco Use Types Packs/Day Years Used Date Never Smoker Smokeless Tobacco: Never Used Alcohol Use Drinks/Week oz/Week Comments No 0 Standard drinks or equivalent 0.0 Sex Assigned at Date Recorded Not on file Job Start Date Occupation Industry Not on file Not on file Not on file Travel History Travel Start Travel End No recent travel history available. documented as of this encounter Last Filed Vital Signs Not on filedocumented in this encounter Plan of Treatment Date Type Specialty Care Team Description 08/10/2019 Telemedicine Visit Pulmonary Disease Duglas Hastings MD [address] [address] [phone] 08/12/2019 Telemedicine Visit Endocrinology Diabetes Jean Martin, & Metabolism 146 [facility] [address] [place], [place] [address] [phone] 08/25/2019 Office Visit Surgery Yanci Cosme MD [address] [place] [address] [phone] 08/31/2019 Office Visit Pain Medicine Unique Street MD [address] [place], [place] [address] 09/08/2019 Office Visit Ophthalmology Royce Hernández MD [address] [place] [address] [phone] 10/05/2019 Office Visit Cardiology Castillo Guerra M D [address] [facility] [address] [place], [place] [address] [phone] 12/13/2019 Office Visit Internal Medicine Osiris Miranda MD 146 [facility] [address] [place], [place] [address] [phone] Health Maintenance Due Date Last Done Comments COLONOSCOPY 09/06/2003 Medicare Wellness Visit 2018 URINE MICROALBUMIN 02/05/2019 02/05/2018, 04/04/2016, 12/22/2014, Additional history exists HgA1C 10/22/2019 04/22/2019, 12/10/2018, 06/11/2018, Additional history exists FOOT EXAM 04/22/2020 04/22/2019, 02/18/2019, 12/10/2018, Additional history exists INFLUENZA VACCINE (#1) 2020 02/06/2009 Postponed from 01/02/2019 (Refu sed) LDL-C 05/09/2020 05/09/2019, 02/05/2018, 04/04/2016, Additional history exists Breast Cancer Screening 05/19/2020 05/19/2019, 06/08/2015, (MAMMOGRAM) 05/30/2015 CREATININE (SERUM) 06/03/2020 06/03/2019, 05/09/2019, 12/10/2018, Additional history exists PNEUMOCOCCAL VACCINES 65+ 06/06/2020 Postpo aristeo from (1 of 2 - PCV13) 2018 (Ref used) Zoster Recombinant Vaccine 06/06/2020 Postp oned from (SHINGRIX) (1 of 2) 09/06/2003 ( Refused) EYE EXAM 07/07/2020 07/08/2019, 07/08/2019, 05/20/2019, Additional history exists DTaP,Tdap,and Td Vaccines 05/22/2025 05/22/2015 (2 - Td) Osteoporosis Screening 05/19/2029 05/19/2019 HEPATITIS C (HCV) SCREEN Completed 05/22/2015 documented as of this encounter Implants Implanted Type Area Machine Heel Builder Device Shelf Model / Serial Identifier Expiration / Lot Date Lens, Juvencio #[id number] 22.5d - [id number] LENS Left: Eye Juvencio 12/01/2020 SN60WF 22.5D / Implanted: Qty: 1 on 06/24/2016 by Liliane Langston MD at [facility] NA / [id number] documented as of this encounter Results Not on filedocumented in this encounter Insurance Payer Benefit Plan Subscriber ID Effective Phone Address Typ e / Group Dates MEDICARE MEDICARE PART xxxxxxxxxxx 2006-Pres [phone] Medicare A & B ent [id number] KATELIN SNELL [phone] INDIGENT CARE [facility] [id number] 2018- [facility] [place] [address] documented as of this encounter Advance Directives Type Date Recorded Patient Community Living Instructor Explanati on Advance Directives and Living Will Power of Vba Programmer
--- OUTSIDE RECORDS SUMMARY | 2019-10-31 23:27 | XMS REPORT | Continuity of Care Document ---
:1955 Author Organization [facility] t Address [address] [place] [address] Care Team Providers Name Role Phone Jad BANKS, Unique Ortiz Attending Clinician Arian MCELROY, A Attending Clinician Nick BANKS, N Attending Clinician Radha BANKS, A Attending Clinician Problems This patient has no known problems. Allergies, Adverse Reactions, Alerts This patient has no known allergies or adverse reactions. Medications This patient has no known medications. Procedures This patient has no known procedures. Encounters Start End Encounter Admission Attending Care Care Encounter Source Date/Time Date/Time Type Type Clinicians Facility Department ID 2019-08-31 2019-08-31 TaraedicMIK Melton [id number] 07:55:30 08:25:30 ne Visit Unique GALICIA [id number] Diana MODI [id number] [place] [id number] [facility] 2019-08-25 2019-08-25 Telephone MIK Don [id number] 00:00:00 00:00:00 Tiffanie Oconnor [id number] [place] [id number] [facility] [id number] [address] 2019-08-24 2019-08-24 TelemedicMIK Lord [id number] 07:57:12 08:12:12 ne Visit Merged With [facility] [id number] Cancer [id number] [facility] [id number] [facility] 144 2019-08-05 2019-08-05 Patient Radha [facility] [id number] 00:00:00 00:00:00 Secure Msg Julianna Walker [place] [id number] [place] [id number] [facility] [id number] [facility] 044 Building Results This patient has no known results.
--- OUTSIDE RECORDS SUMMARY | 2019-10-31 23:28 | XMS REPORT | Summary of Care ---
:1955 Author Organization [facility] Address [address] [place] [address] Care Team Providers Name Role Phone Magnus Martin MD Unavailable Avani Lozano MD Unavailable Unavailable LILIBETH Dejesus Primary Care Provider Reason for Referral (Routine) Status Reason Specialty Diagnoses / Referred By Referred To Procedures Contact Contact New Request Dermatology Diagnoses Atypical rash Julianna Garcia Procedures CONSULT/REFERRAL DERMATOLOGY MD Denise [address] [place] [phone] Reason for Visit Reason Comments Rx Concern/Question Encounter Details Date Type Department Care Team Description 08/05/2019 Telephone [facility] Family Lidia Dejesus, Rx Concern/Question Medicine [address] [address] [address] [place], [place] [address] [phone] Allergies Active Allergy Reactions Severity Noted Date Comments Sulfamethoxazole-Trimetho Unknown - See 12/08/2006 prim comments Codeine Unknown - See 12/08/2006 Patient states it comments makes her feel worse, pain increases Metronidazole Other - See comments 05/24/2015 Throat swelling Morphine Anxiety 12/06/2017 Promethazine Hcl Nausea and/or 05/05/2011 Vomiting Tramadol Anxiety 06/24/2016 Pt felt "weird" documented as of this encounter (statuses as of 08/05/2019) Medications Medication Sig Dispensed Refills Start Date [...] Ventral hernia without obstruction or gangrene Insulin Mikana, USE DIRECTED 400 Each 3 12/10/2018 Active [...] to check 1 Each 0 03/16/2019 Active (ONETOUCH VERIO IQ blood sugar 3X METER) Kit [...] type 2 diabetes mellitus, unspecified laterality lancets (StayTuned Use to check 400 Each 1 05/09/2019 [...] as of this encounter (statuses as of 08/05/2019) Active Problems Problem Noted Date Morbid obesity with body mass index of 40.0-49.9 07/18 Morbid obesity with body mass index of 50 or higher DAVIS (obstructive sleep apnea) 08/22/2015 Vulvar lesion 05/30/2015 Bacterial vaginosis 05/23/2015 Postmenopausal status 05/22/2015 Lichen sclerosus 05/22/2015 Postmenopausal atrophic vaginitis 05/22/2015 H/O: hysterectomy 05/22/2015 Mixed incontinence 05/22/2015 Obesity 01/16/2013 Overview: ICD10 Diagnosis Term Volunteer Manager Utility Elevated alkaline phosphatase level 09/08/2012 Dizziness 02/12/2011 Vertigo of central origin 02/12/2011 Gait disturbance 02/12/2011 BPPV (benign paroxysmal positional vertigo) 02/12/2011 Vitamin D deficiency 02/18/2010 HLD (hyperlipidemia) 05/09/2009 Overview: ICD10 Diagnosis Term Volunteer Manager Utility Other malaise and fatigue 02/06/2009 Hirsutism 02/06/2009 Chest pain 11/09/2008 Inflamed seborrheic keratosis 12/08/2006 Anxiety state 12/08/2006 Overview: ICD10 Diagnosis Term Volunteer Manager Utility Esophageal reflux 12/08/2006 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 Other chronic pain 12/08/2006 Overview: Lower back Essential hypertension, benign 12/08/2006 Dizziness and giddiness 12/08/2006 Overview: positional Pain in joint, lower leg 12/08/2006 Overview: Knee problem Diabetes mellitus type 2, uncontrolled, without compli cations 12/08/2006 Overview: ICD10 Diagnosis Term Volunteer Manager Utility documented as of this encounter (statuses as of 08/05/2019) Resolved Problems Problem Noted Date Resolved Date Vaginal lesion 05/22/2015 05/30/2015 documented as of this encounter (statuses as of 08/05/2019) Immunizations Name Administration Dates Next Due Influenza [...] Visit Pulmonary Disease Duglas Hastings MD [address] [facility] [address] [place], [place] [address] [phone] 08/12/2019 Telemedicine Visit Endocrinology Diabetes Jean Martin, & Metabolism [address] [facility] [address] [place], [place] [address] [phone] 08/25/2019 Office Visit Surgery Yanci Cosme MD [address] [facility] [address] [place] [address] [phone] 08/31/2019 Office Visit Pain Medicine Unique Street MD [address] [place], [place] [address] 09/08/2019 Office Visit Ophthalmology Royce Hernández MD [address] [place] [address] 10/05/2019 Office Visit Cardiology Castillo Guerra M D [address] [facility] [address] [place], [place] [address] [phone] 12/13/2019 Office Visit Internal Medicine Osiris Miranda MD [address] [facility] [address] [place], [place] [address] [phone] Health Maintenance Due Date Last Done Comments [...] of this encounter Implants Implanted Type Area International Broadcast Music Librarian Device Shelf Model / Serial Identifier Expiration / Lot Date Lens, Juvencio #[id number] 22.5d - [id number] LENS Left: Eye Juvencio 12/01/2020 SN60WF 22.5D / Implanted: Qty: 1 on 06/24/2016 by Liliane Langston MD at [facility] NA / [id number] documented as of this encounter Results Not on filedocumented in this encounter Visit Diagnoses Diagnosis Atypical rash - Primary Rash and other nonspecific skin eruption documented in this encounter Insurance Payer Benefit Plan Subscriber ID Effective Phone Address Typ e / Group Dates MEDICARE MEDICARE PART xxxxxxxxxxx 2006-Pres [phone] Medicare A & B ent [id number] [place] S[place] [phone] INDIGENT CARE ICF [id number] 2018-8 [address] [facility] [place] [address] documented as of this encounter Advance Directives Type Date Recorded Patient Tubular Stock Glass Bulb Machine Former Explanati on Advance Directives and Living Will Power of Asset Protection Manager
--- OUTSIDE RECORDS SUMMARY | 2019-10-31 23:29 | XMS REPORT | Summary of Care ---
:1955 Author Organization [facility] Address [address] [place] [address] Care Team Providers Name Role Phone Magnus Martin MD Unavailable Avnai Lozano MD Unavailable Unavailable LILIBETH Dejesus Primary Care Provider Reason for Referral (Routine) Status Reason Specialty Diagnoses / Referred By Referred To Procedures Contact Contact New Request Sleep Disorder Diagnoses Observed sleep apnea Venkata, Diagnostic Procedures SLEEP STUDY, ATTENDED Duglas Sanders MD [address] [place] [address] Dr [address] [place] [address] Reason for Visit Reason Comments Sleep Apnea (Routine) Status Reason Specialty Diagnoses / Referred By Referred To Procedures Contact Contact Pending Review Sleep Disorder Diagnoses DAVIS (obstructive sleep apnea) Castillo Guerra, Diagnostic Procedures CONSULT/REFERRAL SLEEP CLINIC ADULT PULM Preferred Location: [facility] [address] [place] [address] [address] [place] [address] Encounter Details Date Type Department Care Team Description 08/10/2019 Telemedicine Visit [facility] ADC Duglas Hastings bserved sleep Pulmonary Clinic MD Tommy apnea (Primary Dx) [address] [place] [address] , [address] [place] [address] [address] [place] [id number] [phone] Allergies Active Allergy Reactions Severity Noted Date Comments Sulfamethoxazole-Trimetho Unknown - See 12/08/2006 prim comments Codeine Unknown - See 12/08/2006 Patient states it comments makes her feel worse, pain increases Metronidazole Other - See comments 05/24/2015 Throat swelling Morphine Anxiety 12/06/2017 Promethazine Hcl Nausea and/or 05/05/2011 Vomiting Tramadol Anxiety 06/24/2016 Pt felt "weird" documented as of this encounter (statuses as of 08/10/2019) Medications Medication Sig Dispensed Refills Start Date [...] Ventral hernia without obstruction or gangrene Insulin [place], USE DIRECTED 400 Each 3 12/10/2018 Active [...] to check 1 Each 0 03/16/2019 Active ([employer] CompanyTOUCH VERIO IQ blood sugar 3X METER) Kit [...] as of this encounter (statuses as of 08/10/2019) Active Problems Problem Noted Date Morbid obesity with body mass index of 40.0-49.9 07/18 Morbid obesity with body mass index of 50 or higher DAVIS (obstructive sleep apnea) 08/22/2015 Vulvar lesion 05/30/2015 Bacterial vaginosis 05/23/2015 Postmenopausal status 05/22/2015 Lichen sclerosus 05/22/2015 Postmenopausal atrophic vaginitis 05/22/2015 H/O: hysterectomy 05/22/2015 Mixed incontinence 05/22/2015 Obesity 01/16/2013 Overview: ICD10 Diagnosis Term Mortgage Processing Clerk Utility Elevated alkaline phosphatase level 09/08/2012 Dizziness 02/12/2011 Vertigo of central origin 02/12/2011 Gait disturbance 02/12/2011 BPPV (benign paroxysmal positional vertigo) 02/12/2011 Vitamin D deficiency 02/18/2010 HLD (hyperlipidemia) 05/09/2009 Overview: ICD10 Diagnosis Term Mortgage Processing Clerk Utility Other malaise and fatigue 02/06/2009 Hirsutism 02/06/2009 Chest pain 11/09/2008 Inflamed seborrheic keratosis 12/08/2006 Anxiety state 12/08/2006 Overview: ICD10 Diagnosis Term Mortgage Processing Clerk Utility Esophageal reflux 12/08/2006 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 Other chronic pain 12/08/2006 Overview: Lower back Essential hypertension, benign 12/08/2006 Dizziness and giddiness 12/08/2006 Overview: positional Pain in joint, lower leg 12/08/2006 Overview: Knee problem Diabetes mellitus type 2, uncontrolled, without compli cations 12/08/2006 Overview: ICD10 Diagnosis Term Mortgage Processing Clerk Utility documented as of this encounter (statuses as of 08/10/2019) Resolved Problems Problem Noted Date Resolved Date Vaginal lesion 05/22/2015 05/30/2015 documented as of this encounter (statuses as of 08/10/2019) Immunizations Name Administration Dates Next Due Influenza [...] Signs Not on filedocumented in this encounter Progress Notes Duglas Hastings MD - 08/10/2019 10:00 AM CDTThe patient was contacted by phone today in lieu of a clinic visit. Verbal consent was obtained from the patient for telehealth services provided below. The conversation took place between the patient at their home and me from the [facility] telephone number. It was done through telephone without video. The whole encounter lasted 30 minutes. Chief Complaints: The patient reports: excessive daytime sleepiness, fatigue, restless and non-restorative sleep, snoring, morning headaches, kicking legs at night, sleep talking, nightmares, nocturia,difficulty initiating and maintaining sleep. History of Present Illness: The patient reports a gradual weight loss over the last 2 years as well. The patient usually goes to bed around 11 p.m. and wakes up around 8:30-9 a.m. It takes hours to fall asleep. During the night, the patient wakes up 3-4 times to go to the restroom. After a typical nights sleep, the patient often feels fatigued and unrefreshed. The patient does not take intentional naps during the day. The patient does not suffer from irresistible sleep attacks during the day. The patient does not experience sudden loss of muscle tone when emotional or excited. The patient does not report vivid dream-like images and loss of muscle tone when falling asleep and upon awakening. Social History: The patient does not smoke cigarettes. The patient does not drink alcoholic beverages. Caffeinated beverages consumption: 1-2 per day. Family History: The family history is positive for snoring in blood relatives. Review of Systems: 1)Respiratory: positive for snoring; 2)Cardiovascular: positive for hypertension; 3)Endocrine/Metabolic: positive for diabetes mellitus; 4)Digestive: negative for abnormalities; 5)Urinary: positive fornocturia; 6)Skeletal: no skeletal abnormalities reported; 7)Muscular: negative for muscular abnormalities; 8)Nervous: positive for hypersomnia; 9)Integumentary: no reported skin or hair abnormalities; 10)Reproductive: no reproductive abnormalities noted; 11)Immune/Lymphatic/Allergy: positive for respiratory allergies. Discussion: I discussed the possible etiologies of the sleep disorder with the patient, which include sleep disordered breathing such as Obstructive Sleep Apnea or Central Sleep Apnea Syndromes. Other conditions discussed with the patient, which may also cause sleep disruption and daytime sleepiness include Periodic Limb Movements and Parasomnias. Impression: Sleep Apnea, Unspecified G47.30 Parasomnia, Unspecified G47.50 Periodic Limb Movement Disorder G47.61 Recommendations and Patient Education: Nocturnal Polysomnography is recommended to evaluate for the possibility of sleep-disordered breathing such as Obstructive Sleep Apnea versus Central Sleep Apnea, or other sleep disorders such as Periodic Limb Movements and Parasomnias. Follow up in clinic to review the polysomnography results and the treatment options is also recommended. Safety issues regarding daytime sleepiness and driving or operating heavy machinery were also discussed with the patient. Additional time was spent discussing sleep hygiene including: regular bedtime and wake-up times; enough sleep hours; going to bed only when sleepy; using bed for the sole purpose of sleeping; avoidanceof: 1) caffeinated and alcoholic beverages, 2) strenuous cognitive activity, or 3) heavy meals in the evening. The patient was instructed to contact us in case of further questions or concerns. documented in this encounter Plan of Treatment Date Type Specialty Care Team Description 08/12/2019 Telemedicine Visit Endocrinology Diabetes Jean Martin, & Metabolism 146 [facility] [address] [place], [place] [address] [phone] 08/25/2019 Office Visit Surgery Yanci Cosme MD 2[address] [facility] [address] [place] [address] [phone] 08/31/2019 Office Visit Pain Medicine Unique Street MD 301 [facility] [address] [place], [place] [address] 09/08/2019 Office Visit Ophthalmology Royce Hernández MD [address] [place] [address] [address] [place], [place] [address] 10/05/2019 Office Visit Cardiology Castillo Guerra M D 146 [facility] [address] [place], [place] [address] [phone] 12/13/2019 Office Visit Internal Medicine Osiris Miranda MD 146 [facility] r [address] [place], [place] [address] [phone] Name Type Priority Associated Diagnoses Order S chedule SLEEP STUDY, ATTENDED PROCEDURES Routine Observed sleep apne a Ordered: 08/10/2019 Health Maintenance Due Date Last Done Comments [...] of this encounter Implants Implanted Type Area Commercial Loan Collection Officer Device Shelf Model / Serial Identifier Expiration / Lot Date Lens, Juvencio #[id number] 22.5d - [id number] LENS Left: Eye Juvencio 12/01/2020 SN60WF 22.5D / Implanted: Qty: 1 on 06/24/2016 by Liliane Langston MD at [facility] / [id number] 1 documented as of this encounter Results Not on filedocumented in this encounter Visit Diagnoses Diagnosis Observed sleep apnea - Primary Unspecified sleep apnea documented in this encounter Insurance Payer Benefit Plan Subscriber ID Effective Phone Address Typ e / Group Dates MEDICARE MEDICARE PART xxxxxxxxxxx 2006-Pres 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
--- OUTSIDE RECORDS SUMMARY | 2019-10-31 23:29 | XMS REPORT | Summary of Care ---
:1955 Author Organization [facility] - [facility] Address [address] [place] [address] Care Team Providers Name Role Phone Magnus Martin MD Unavailable Avani Lozano MD Unavailable Unavailable LILIBETH Dejesus Primary Care Provider Encounter Details Date Type Department Care Team Description 07/30/2019 Orders Only [facility] Doctor Unassigned, No 301 [facility] [place] [address] 301 [place] [address] Allergies Active Allergy Reactions Severity Noted Date Comments Sulfamethoxazole-Trimetho Unknown - See 12/08/2006 prim comments Codeine Unknown - See 12/08/2006 Patient states it comments makes her feel worse, pain increases Metronidazole Other - See comments 05/24/2015 Throat swelling Morphine Anxiety 12/06/2017 Promethazine Hcl Nausea and/or 05/05/2011 Vomiting Tramadol Anxiety 06/24/2016 Pt felt "weird" documented as of this encounter (statuses as of 08/08/2019) Medications Medication Sig Dispensed Refills Start Date [...] Ventral hernia without obstruction or gangrene Insulin [place], USE DIRECTED 400 Each 3 12/10/2018 Active [...] to check 1 Each 0 03/16/2019 Active (Xiangya GroupUCH VERIO IQ blood sugar 3X METER) Kit [...] Active creamIndications: 2 (two) times Dermatitis daily. Hospital, Clinic, or Other Ordered Dose Route Frequency Start Date End Date Status Facility Administered Medication DOBUTamine (DOBUTREX) 500 mg 460.5 mcg/min IV TITRATE 017 Active in 250mL(Fixed Dose) D5W infusionIndications: Chest pain, unspecified documented as of this encounter (statuses as of 08/08/2019) Active Problems Problem Noted Date Morbid obesity with body mass index of 40.0-49.9 07/18 Morbid obesity with body mass index of 50 or higher DAVIS (obstructive sleep apnea) 08/22/2015 Vulvar lesion 05/30/2015 Bacterial vaginosis 05/23/2015 Postmenopausal status 05/22/2015 Lichen sclerosus 05/22/2015 Postmenopausal atrophic vaginitis 05/22/2015 H/O: hysterectomy 05/22/2015 Mixed incontinence 05/22/2015 Obesity 01/16/2013 Overview: ICD10 Diagnosis Term Telegraphic Typewriter Mechanic Utility Elevated alkaline phosphatase level 09/08/2012 Dizziness 02/12/2011 Vertigo of central origin 02/12/2011 Gait disturbance 02/12/2011 BPPV (benign paroxysmal positional vertigo) 02/12/2011 Vitamin D deficiency 02/18/2010 HLD (hyperlipidemia) 05/09/2009 Overview: ICD10 Diagnosis Term Telegraphic Typewriter Mechanic Utility Other malaise and fatigue 02/06/2009 Hirsutism 02/06/2009 Chest pain 11/09/2008 Inflamed seborrheic keratosis 12/08/2006 Anxiety state 12/08/2006 Overview: ICD10 Diagnosis Term Telegraphic Typewriter Mechanic Utility Esophageal reflux 12/08/2006 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 Other chronic pain 12/08/2006 Overview: Lower back Essential hypertension, benign 12/08/2006 Dizziness and giddiness 12/08/2006 Overview: positional Pain in joint, lower leg 12/08/2006 Overview: Knee problem Diabetes mellitus type 2, uncontrolled, without compli cations 12/08/2006 Overview: ICD10 Diagnosis Term Telegraphic Typewriter Mechanic Utility documented as of this encounter (statuses as of 08/08/2019) Resolved Problems Problem Noted Date Resolved Date Vaginal lesion 05/22/2015 05/30/2015 documented as of this encounter (statuses as of 08/08/2019) Immunizations Name Administration Dates Next Due Influenza [...] Pulmonary Disease Duglas Hastings MD 146 [facility] [address] [place], [place] [address] [phone] 08/12/2019 Telemedicine Visit Endocrinology Diabetes Jean Martin, & Metabolism 146 [facility] [address] [place], [place] [address] [phone] 08/25/2019 Office Visit Surgery Yanci Cosme MD 2[address] [facility] [address] [place] [address] [phone] 08/31/2019 Office Visit Pain Medicine Unique Street MD [address] [place] [address] 09/08/2019 Office Visit Ophthalmology Royce Hernández MD [address] [place] [address] 10/05/2019 Office Visit Cardiology Castillo Guerra M D 146 [facility] [address] [place], [place] [address] [phone] 12/13/2019 Office Visit Internal Medicine Osiris Miranda MD 146 [facility] D r [address] [place], [place] [address] [phone] Health Maintenance Due Date Last Done Comments [...] of this encounter Implants Implanted Type Area Qc Manager Device Shelf Model / Serial Identifier Expiration / Lot Date Lens, Juvencio #[id number] 22.5d - [id number] LENS Left: Eye Juvencio 12/01/2020 SN60WF 22.5D / Implanted: Qty: 1 on 06/24/2016 by Liliane Langston MD at [facility] NA / [id number] documented as of this encounter Procedures Procedure Name Priority Date/Time Associated Diagnosis Comme nts INSURANCE CORRESPONDENCE Routine 07/30/2019 12:01 AM CDT documented in this encounter Results Not on filedocumented in this encounter Insurance Payer Benefit Plan Subscriber ID Effective Phone Address Typ e / Group Dates MEDICARE MEDICARE PART xxxxxxxxxxx 2006-Pres [phone] [address] Medicare A & B ent [id number] KATELIN SNELL [id number] INDIGENT CARE [facility] [id number] 2018-/ 301 [facility] [place] [address] documented as of this encounter Advance Directives Type Date Recorded Patient Top Former Explanati on Advance Directives and Living Will Power of Structural Steel Ironworker
--- OUTSIDE RECORDS SUMMARY | 2019-10-31 23:29 | XMS REPORT | Summary of Care ---
:1955 Author Organization [facility] Address [address] [place] [address] Care Team Providers Name Role Phone Magnus Martin MD Unavailable Avani Lozano MD Unavailable Unavailable LILIBETH Dejesus Primary Care Provider Reason for Visit Reason Comments Appointment Encounter Details Date Type Department Care Team Description 08/15/2019 Telephone [facility]- Royce Hern[facility]dez [facility] [address] [place] [address] 3223 [facility] [phone] [place], [place] [phone] Allergies Active Allergy Reactions Severity Noted Date Comments Sulfamethoxazole-Trimetho Unknown - See 12/08/2006 prim comments Codeine Unknown - See 12/08/2006 Patient states it comments makes her feel worse, pain increases Metronidazole Other - See comments 05/24/2015 Throat swelling Morphine Anxiety 12/06/2017 Promethazine Hcl Nausea and/or 05/05/2011 Vomiting Tramadol Anxiety 06/24/2016 Pt felt "weird" documented as of this encounter (statuses as of 08/15/2019) Medications Medication Sig Dispensed Refills Start Date [...] location, Ventral hernia without obstruction or gangrene busPIRone 10 mg Take 1 tablet by 60 tablet 2 12/15/2018 Active tabletIndications: mouth 2 (two) Anxiety and depression times daily. omeprazole 40 mg Take 1 capsule by 30 capsule 3 12/21/2018 Active capsuleIndications: mouth daily. Gastroesophageal reflux disease, esophagitis presence not specified Blood-Glucose Meter Use to check 1 Each 0 03/16/2019 Active (Energid TechnologiesUCH VERIO IQ blood sugar 3X METER) Kit daily. DX:E11.65 blood sugar diagnostic Use to check 400 Strip 1 05/06/2019 Active (Energid TechnologiesUCH VERIO) strip blood sugar QID daily. DX:E11.65 clobetasoL 0.05 % Apply to area(s) 30 g 0 07/29/2019 Active creamIndications: 2 (two) times Dermatitis daily. hydrOXYzine 25 mg Take 1 tablet by 30 tablet 0 08/01/2019 Active tabletIndications: mouth 3 (three) Dermatitis times daily as needed for Itching. Insulin [place], USE DIRECTED 400 Each 3 08/12/2019 Active Disposable, (MAMI PEN FIVE TIMES A NEEDLE) 32 gauge x DAY " NdleIndications: Diabetes mellitus type 2, uncontrolled, without complications atorvastatin 20 mg TAKE 1/2 45 tablet 3 08/12/2019 Active tabletIndications: (ONE-HALF) TABLET Hyperlipidemia, BY MOUTH ONCE unspecified DAILY hyperlipidemia type lisinopril 20 mg Take 1 tablet by 180 tablet 3 08/12/2019 Active tabletIndications: mouth 2 (two) Essential times daily. Dx: hypertension, benign E11.65 lancets (ONETOUCH Use to check 400 Each 1 08/12/2019 Active DELICA PLUS LANCET) 33 blood sugar 4X gauge MiscIndications: daily. DX:E11.65 Diabetes mellitus type 2, uncontrolled, without complications Insulin Glargine inject 14 Units 15 mL 1 08/12/2019 Active (LANTUS SOLOSTAR U-100 under the skin INSULIN) 100 unit/mL daily. 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 Essential hypertension, benign insulin lispro Up to 30 units 3 Box 3 08/12/2019 Active (HUMALOG KWIKPEN three times daily INSULIN) 100 unit/mL according to pen sliding scale DX: injectorIndications: E11.65 Diabetes mellitus type 2, uncontrolled, without complications Hospital, Clinic, or Other Ordered Dose Route Frequency Start Date End Date Status Facility Administered Medication DOBUTamine (DOBUTREX) 500 mg 460.5 mcg/min IV TITRATE 017 Active in 250mL(Fixed Dose) D5W infusionIndications: Chest pain, unspecified documented as of this encounter (statuses as of 08/15/2019) Active Problems Problem Noted Date Morbid obesity with body mass index of 40.0-49.9 07/18 Morbid obesity with body mass index of 50 or higher DAVIS (obstructive sleep apnea) 08/22/2015 Vulvar lesion 05/30/2015 Bacterial vaginosis 05/23/2015 Postmenopausal status 05/22/2015 Lichen sclerosus 05/22/2015 Postmenopausal atrophic vaginitis 05/22/2015 H/O: hysterectomy 05/22/2015 Mixed incontinence 05/22/2015 Obesity 01/16/2013 Overview: ICD10 Diagnosis Term Plastic Hospital Products Assembler Utility Elevated alkaline phosphatase level 09/08/2012 Dizziness 02/12/2011 Vertigo of central origin 02/12/2011 Gait disturbance 02/12/2011 BPPV (benign paroxysmal positional vertigo) 02/12/2011 Vitamin D deficiency 02/18/2010 HLD (hyperlipidemia) 05/09/2009 Overview: ICD10 Diagnosis Term Plastic Hospital Products Assembler Utility Other malaise and fatigue 02/06/2009 Hirsutism 02/06/2009 Chest pain 11/09/2008 Inflamed seborrheic keratosis 12/08/2006 Anxiety state 12/08/2006 Overview: ICD10 Diagnosis Term Plastic Hospital Products Assembler Utility Esophageal reflux 12/08/2006 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 Other chronic pain 12/08/2006 Overview: Lower back Essential hypertension, benign 12/08/2006 Dizziness and giddiness 12/08/2006 Overview: positional Pain in joint, lower leg 12/08/2006 Overview: Knee problem Diabetes mellitus type 2, uncontrolled, without compli cations 12/08/2006 Overview: ICD10 Diagnosis Term Plastic Hospital Products Assembler Utility documented as of this encounter (statuses as of 08/15/2019) Resolved Problems Problem Noted Date Resolved Date Vaginal lesion 05/22/2015 05/30/2015 documented as of this encounter (statuses as of 08/15/2019) Immunizations Name Administration Dates Next Due Influenza [...] Treatment Date Type Specialty Care Team Description 08/25/2019 Office Visit Surgery Yanci Cosme MD 2[address] [facility] [address] [place] [address] [phone] 08/31/2019 Telemedicine Visit Pain Medicine Unique Street MD [address] [place], [place] [address] 09/08/2019 Office Visit Ophthalmology Royce Hernández MD [address] [place] [address] [address] [place] [address] 10/05/2019 Office Visit Cardiology Castillo Guerra M D 146 [facility] [address] [place], [place] [address] [phone] 12/13/2019 Office Visit Internal Medicine Osiris Miranda MD [address] [place] [address] 103 [place], [place] [address] [phone] 12/23/2019 Office Visit Endocrinology Diabetes Magnus Martin, & Metabolism [address] [place] [address] 208 [place], [place] [address] [phone] Health Maintenance Due Date Last Done Comments COLONOSCOPY 09/06/2003 Medicare Wellness Visit 2018 URINE MICROALBUMIN 02/05/2019 02/05/2018, 04/04/2016, 12/22/2014, Additional history exists HgA1C 10/22/2019 04/22/2019, 12/10/2018, 06/11/2018, Additional history exists INFLUENZA VACCINE (#1) 2020 [...] 07/07/2020 07/08/2019, 07/08/2019, 05/20/2019, Additional history exists FOOT EXAM 08/11/2020 08/12/2019, 04/22/2019, 02/18/2019, Additional history exists DTaP,Tdap,and Td Vaccines 05/22/2025 05/22/2015 (2 - Td) Osteoporosis Screening 05/19/2029 05/19/2019 HEPATITIS C (HCV) SCREEN Completed 05/22/2015 documented as of this encounter Implants Implanted Type Area Ironer Or Presser Device Shelf Model / Serial Identifier Expiration / Lot Date Lens, Juvencio #[id number] 22.5d - [id number] LENS Left: Eye Juvencio 12/01/2020 SN60WF 22.5D / Implanted: Qty: 1 on 06/24/2016 by Liliane Langston MD at [facility] NA / [id number] documented as of this encounter Results Not on filedocumented in this encounter Insurance Payer Benefit Plan Subscriber ID Effective Phone Address Typ e / Group Dates MEDICARE MEDICARE PART xxxxxxxxxxx 2006-Pres 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
--- OUTSIDE RECORDS SUMMARY | 2019-10-31 23:30 | XMS REPORT | Summary of Care ---
:1955 Author Organization [facility] Address [address] [place] [address] Care Team Providers Name Role Phone Magnus Martin MD Unavailable Avani Lozano MD Unavailable Unavailable LILIBETH Dejesus Primary Care Provider Reason for Visit Reason Comments Diabetes Mellitus II Encounter Details Date Type Department Care Team Description 08/12/2019 Telemedicine Visit [facility] Magnus Martin Diabet es mellitus type 2, uncontrolled, without complications (Primary Dx); Endocrinology- HMD Hyperlipidemia, unspecified hyperlipidem ia type; [address] Essential hypertension, jody gn; Professional Severe nonproliferative diabetic retinop athy without macular edema associated with type 2 diabetes mellitus, unspecified laterality Office Building [address] [place], [place] [facility] [address] [address] [place], [place] [phone] Allergies Active Allergy Reactions Severity Noted Date [...] 08/15/2019) Medications Medication Sig Dispensed Refills Start End Status Date Date aspirin 81 mg Take 81 mg by 0 Ac tive chewable tablet mouth daily. ibuprofen (MOTRIN) Take 1 Tab by 0 Active 800 mg tablet mouth as 3 needed. mupirocin Apply to 1 Tube 2 Active (BACTROBAN) 2 % area(s) 3 3 ointmentIndications: (three) times Skin lesion of face daily. albuterol (PROAIR Inhale 2 Puffs 1 Inhaler 1 Active HFA) 90 every 6 (six) 4 mcg/actuation hours as needed inhalerIndications: for Wheezing or Cough Shortness of Breath (prescribe with aerochamber (spacer)). chlorhexidine 0.12 % Swish and spit 0 Active mouthwash out 5 mL daily. 7 cetirizine-psuedoeph Take 1 tablet 0 Active edrine (ZYRTEC-D) by mouth 2 5-120 mg per tablet (two) times daily. cyclobenzaprine 10 Take 1 tablet 15 tablet 0 Active mg tablet by mouth 2 8 (two) times daily as needed for Muscle Spasms. indomethacin 50 mg Take 1 capsule 30 capsule 0 Active capsuleIndications: by mouth 3 9 Dental abscess (three) times daily with meals as needed for Pain. dicyclomine (BENTYL) Take 1 tablet 20 tablet 0 Active 20 mg by mouth 4 9 tabletIndications: (four) times Abdominal pain, daily as needed unspecified for Abdominal abdominal location, pain. Ventral hernia without obstruction or gangrene busPIRone 10 mg Take 1 tablet 60 tablet 2 Active tabletIndications: by mouth 2 9 Anxiety and (two) times depression daily. omeprazole 40 mg Take 1 capsule 30 capsule 3 Active capsuleIndications: by mouth daily. 9 Gastroesophageal reflux disease, esophagitis presence not specified Blood-Glucose Meter Use to check 1 Each 0 Active (ONETOUCH VERIO IQ blood sugar 3X 9 METER) Kit daily. DX:E11.65 blood sugar Use to check 400 Strip 1 Activ e diagnostic (ONETOUCH blood sugar QID 0 VERIO) strip daily. DX:E11.65 clobetasoL 0.05 % Apply to 30 g 0 Ac tive creamIndications: area(s) 2 (two) 0 Dermatitis times daily. hydrOXYzine 25 mg Take 1 tablet 30 tablet 0 Active tabletIndications: by mouth 3 0 Dermatitis (three) times daily as needed for Itching. Insulin [place], USE DIRECTED 400 Each 3 Active Disposable, (MAMI FIVE TIMES A 0 PEN NEEDLE) 32 gauge DAY x " NdleIndications: Diabetes mellitus type 2, uncontrolled, without complications atorvastatin 20 mg TAKE /2 45 tablet 3 A ctive tabletIndications: (ONE-HALF) 0 Hyperlipidemia, TABLET BY MOUTH unspecified ONCE DAILY hyperlipidemia type lisinopril 20 mg Take 1 tablet 180 tablet 3 Active tabletIndications: by mouth 2 0 Essential (two) times hypertension, benign daily. Dx: E11.65 lancets (ONETOUCH Use to check 400 Each Active DELICA PLUS LANCET) blood sugar 4X 0 33 gauge daily. MiscIndications: DX:E11.65 Diabetes mellitus type 2, uncontrolled, without complications Insulin Glargine inject 14 Units 15 mL 1 Active (LANTUS SOLOSTAR under the skin 0 U-100 INSULIN) 100 daily. DX: unit/mL (3 mL) E11.65 injectionIndications : Severe nonproliferative diabetic retinopathy without macular edema associated with type 2 diabetes mellitus, unspecified laterality amLODIPine 10 mg Take 1 tablet 90 tablet 3 Active tabletIndications: by mouth daily. 0 Essential hypertension, benign insulin lispro Up to 30 units 3 Box 3 Active (HUMALOG KWIKPEN three times 0 INSULIN) 100 unit/mL daily according pen to sliding injectorIndications: scale DX: Diabetes mellitus E11.65 type 2, uncontrolled, without complications Insulin [place], USE DIRECTED 400 Each 3 Discontinued Disposable, (MAMI FIVE TIMES A 9 020 (Reorder) PEN NEEDLE) 32 gauge DAY x " NdleIndications: Diabetes mellitus type 2, uncontrolled, without complications atorvastatin 20 mg TAKE 05/05 45 tablet 3 D iscontinued tabletIndications: (ONE-HALF) 9 020 (Reorder) Hyperlipidemia, TABLET BY MOUTH unspecified ONCE DAILY hyperlipidemia type lisinopril 20 mg Take 1 tablet 180 tablet 3 Discontinued tabletIndications: by mouth 2 0 020 (Reorder) Essential (two) times hypertension, benign daily. Dx: E11.65 insulin lispro Up to 30 units 3 Box 3 Discontinued (HUMALOG KWIKPEN three times 0 020 ( Reorder) INSULIN) 100 unit/mL daily according pen to sliding injectorIndications: scale DX: Diabetes mellitus E11.65 type 2, uncontrolled, without complications Insulin Glargine inject 14 Units 15 mL 1 Discontinued (LANTUS SOLOSTAR under the skin 0 020 (Reorder) U-100 INSULIN) 100 daily. DX: unit/mL (3 mL) E11.65 injectionIndications : Severe nonproliferative diabetic retinopathy without macular edema associated with type 2 diabetes mellitus, unspecified laterality lancets (ONETOUCH Use to check 400 Each 1 Discontinued DELICA PLUS LANCET) blood sugar 4X 0 020 (Reorder) 33 gauge Misc daily. DX:E11.65 amLODIPine 10 mg Take 1 tablet 60 tablet 1 Discontinued tabletIndications: by mouth daily. 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 Other malaise and fatigue 02/06/2009 Hirsutism 02/06/2009 Chest pain 11/09/2008 Inflamed seborrheic keratosis 12/08/2006 Anxiety state 12/08/2006 Overview: ICD10 Diagnosis 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 Esophageal reflux 12/08/2006 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 Continue Humalog. Check sugar before each meal. If sugar is under 80, NO Humalog If sugar is 81-150, use 11 units Humalog If sugar is 151-200, use 13 units Humalog If sugar is 201-250, use 15 units Humalog If sugar is 251-300, use 17 units Humalog If sugar is over 301, use 19 units Humalog You definitely need to avoid excess carbohydrates, even crackers! We want sugars in the 90-180 range. Take your atorvastatin daily. documented in this encounter Progress Notes Magnus Martin MD - 08/12/2019 12:00 PM CDT Chief Complaint Patient presents with Diabetes Mellitus II Verbal consent obtained from Liss Ro for telehealth services provided below for 25 minutes. Communication with patient was conducted via telephone. Patient was at home, I was in the [facility] clinic. HPI Patient is 63 year old who is here today for f/u for Diabetes Mellitus Type 2. Patient's diabetes is not complicated. Pt also with depression, hypertension, obesity. She has no new c/o today. She reports checking BGs less compulsively. They are in the upper 100s to 200s. She is on Lantus 14 unitsdaily, and lispro by a sliding scale. Hypoglycaemia hasn't been a feature. Diet is variable. No physical activity, again citing a variety of joint and muscle ailments. She reports that she has cut out diet soda. She is taking Lipitor inconsistently. She hasn't made appointments with pain medicineor psychiatry yet. 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 Office Visit Vitreous hemorrhage of left eye 05/20/2019 Royce Hernández MD [facility] Office Visit Proliferative diabetic retinopathy of right eye without macular edema associated with type 2 diabetes mellitus 05/02/2019 Royce Hernández MD [facility] Office Visit Proliferative diabetic retinopathy of right eye without macular edema associated with type 2 diabetes mellitus CREATININE Date Value 06/03/2019 0.63 mg/dL 03/09/2013 0.63 MG/DL MICROALB U Date Value 02/05/2018 22 ug/mL 09/08/2012 14 uG/ML CHOL Date Value 05/09/2019 216 mg/dL (H) 09/08/2012 190 MG/DL TRIG Date Value 05/09/2019 94 mg/dL 09/08/2012 124 MG/DL LDL CHOL Date Value 05/09/2019 104 mg/dL 09/08/2012 87 MG/DL Diabetes Relevant Medication Classes Last refreshed: 08/15/2019 10:15 AM: Prescribed MARIA EUGENIA inhibitor Yes Last refreshed: 08/15/2019 10:15 AM: Prescribed ARBs No Last refreshed: 08/15/2019 10:15 AM: Prescribed statins Yes Last refreshed: 08/15/2019 10:15 AM: Prescribed antiplatelets No Last refreshed: 08/15/2019 10:15 AM: Prescribed aspirin Yes Last refreshed: 08/15/2019 10:15 AM: On Fibrates No Current as of: 08/15/2019 10:15 AM HISTORY Past Medical History: Diagnosis Date Abnormal uterine bleeding ANXIETY STATE NOS 12/08/2006 Apnea BENIGN HYPERTENSION 12/08/2006 CHRONIC DEPRESSIVE PERSON 12/08/2006 CHRONIC PAIN NEC 12/08/2006 Lower back Dizziness and giddiness 12/08/2006 positional Esophageal reflux 12/08/2006 Esophageal spasm JOINT PAIN-L/LEG 12/08/2006 Knee problem Mild nonproliferative diabetic retinopathy(362.04) 01/2011 mild; bilateral; repeat 9 months; exam 11/12, left mild NPDR Normal eye exam 05/2009; 12/2009-mild NPDR left eye, needs 6mo f/u; 06/26/10 Obesity 01/16/2013 ICD10 Diagnosis 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 DAVIS (obstructive sleep apnea) 08/22/2015 Osteoporosis Other isolated or specific phobias Postmenopausal atrophic vaginitis 05/22/2015 PTSD (post-traumatic stress disorder) SEBORRHEIC KERATOSIS INFLAMED 12/08/2006 Type II or unspecified type diabetes mellitus without mention of complication, uncontrolled 12/08/2006 Urinary incontinence Vertigo Past Surgical History: Procedure Laterality Date SECTION COLONOSCOPY ENDOLASER PHOTOCOAGULATION Left 07/17/2016 Surgeon: Royce Buchanan MD; Location: [facility] EYE SERVICE OR PROCEDURE right eye surgery OPEN CARPAL TUNNEL RELEASE both wrist OTHER muscle reconstruction in butt PARS PLANA VITRECTOMY Left 07/17/2016 Surgeon: Royce Buchanan MD; Location: [facility] OR Location PHACOEMULSIFICATION OF CATARACT WITH INTRAOCULAR LENS IMPLANT 10/16/1998 right eye-+18.0D-with Yag PHACOEMULSIFICATION OF CATARACT WITH INTRAOCULAR LENS IMPLANT Left 06/24/2016 Surgeon: Liliane Luna; Location: [facility] Location REMOVAL GALLBLADDER VAGINAL HYSTERECTOMY YAG LASER OCULAR CAPSULOTOMY Left 04/07/2019 Dr. Buchanan Family History Problem Relation Age of Onset Coronary Heart Disease Mother [place] @ 60s Hypertension Mother Arthritis Mother High cholesterol Mother Thyroid Mother Diabetes Mother Osteoporosis Mother Coronary Heart Disease Father enlarged heart Coronary Heart Disease Brother [place] @ 60 Coronary Heart Disease Sister [place] @ 50s Hypertension Mother Hypertension Sister Diabetes Mother Diabetes Brother Heart Brother Hypertension Brother Lipids Brother Thyroid Mother Asthma NoFHx defects NoFHx Genetic NoFHx Breast Cancer NoFHx Colon Cancer NoFHx Ovarian Cancer NoFHx Uterine Cancer NoFHx Cancer NoFHx Depression NoFHx Mental retardation NoFHx Neurological NoFHx Psychiatry NoFHx Family Status Relation Status Age Father late 50's ?heart Mother Alive Daughter Alive Son Alive Daughter Alive Social History Socioeconomic History Marital status: Spouse name: Not on file Number of children: Not on file Years of education: Not on file Highest education level: Not on file Occupational History Not on file Social Needs Financial resource strain: Not on file Food insecurity: Worry: Not on file Inability: Not on file Transportation needs: Medical: Not on file Non-medical: Not on file Tobacco Use Smoking status: Never Smoker Smokeless tobacco: Never Used Substance and Sexual Activity Alcohol use: No Alcohol/week: 0.0 standard drinks Drug use: No Sexual activity: Not Currently Lifestyle Physical activity: Days per week: Not on file Minutes per session: Not on file Stress: Not on file Relationships Social connections: Talks on phone: Not on file Gets together: Not on file Attends buddhist service: Not on file Active member of club or organization: Not on file Attends meetings of clubs or organizations: Not on file Relationship status: Not on file Intimate partner violence: Fear of current or ex partner: Not on file Emotionally abused: Not on file Physically abused: Not on file Forced sexual activity: Not on file Other Topics Concern Not on file Social History Narrative On disability for a few years now due to back problems and agoraphobia/panic attacks. Lives alone; No current domestic violence or abuse. ALLERGIES Allergies Allergen Reactions Bactrim [Sulfamethoxazole-Trimethoprim] Unknown - See comments Codeine Unknown - See comments Patient states it makes her feel worse, pain increases Flagyl [Metronidazole] Other - See comments Throat swelling Morphine Anxiety Phenergan [Promethazine Hcl] Nausea and/or Vomiting Tramadol Anxiety Pt felt "weird" REVIEW OF SYSTEMS Constitutional: + fatigue Eyes: denies blurry vision and denies diplopia. Cardiovascular: denies chest pain and denies palpitations. Respiratory: denies shortness of breath. Gastrointestinal: denies constipation and denies diarrhea Musculoskeletal: + back pain, + joint pain Neuro: +burning of left foot Endocrine: denies weight change. PHYSICAL EXAM Weight 176 lbs (patient [id number]) There were no vitals filed for this visit. No exam--telemedicine. POCT HBA1C (%) Date Value 04/22/2019 8.3 ASSESSMENT/PLAN: ICD-10-CM ICD-9-CM 1. Diabetes mellitus type 2, uncontrolled, without complications E11.65 250.02 2. Hyperlipidemia, unspecified hyperlipidemia type E78.5 272.4 3. Essential hypertension, benign I10 401.1 4. Severe nonproliferative diabetic retinopathy without macular edema associated with type 2 diabetes mellitus, unspecified laterality E11.3499 250.50 362.06 Mod control (for her). Continue Lantus 14 units daily. Continue thrice daily NovoLog algorithm: If sugar is under 80, No Humalog If sugar is 81-150, use 11 units Humalog If sugar is 151-200, use 13 units Humalog If sugar is 201-250, use 15 units Humalog If sugar is 251-300, use 17 units Humalog If sugar is over 301, use 19 units Humalog Lifestyle modifications emphasized. Take atorvastatin daily. F/u with primary care regarding anxiety. No orders of the defined types were placed in this encounter. documented in this encounter Plan of Treatment Date Type Specialty Care Team Description 08/25/2019 Office Visit Surgery Yanci Cosme MD [address] [facility] [address] [place] [address] [phone] 08/31/2019 Telemedicine Visit Pain Medicine Unique Street MD [address] [place], [place] [address] 10/05/2019 Office Visit Cardiology Castillo Guerra M D [address] [facility] [address] [place], [place] [address] [phone] 12/01/2019 Office Visit Ophthalmology Royce Hernández MD [address] [place] [address] 12/13/2019 Office Visit Internal Medicine Osiris Miranda MD [address] [place] [address] [address] [place], [place] [address] [phone] 12/23/2019 Office Visit Endocrinology Diabetes Magnus Martin, & Metabolism [address] [place] [address] [address] [place], [place] [address] [phone] Health Maintenance Due Date Last Done Comments [...] of this encounter Implants Implanted Type Area Caddy Device Shelf Model / Serial Identifier Expiration / Lot Date Lens, Juvencio #[id number] 22.5d - [id number] LENS Left: Eye Juvencio 12/01/2020 [id number] 22.5D / Implanted: Qty: 1 on 06/24/2016 by Liliane Langston MD at [facility] / [id number] documented as of this encounter Results Not on filedocumented in this encounter Visit Diagnoses Diagnosis Diabetes mellitus type 2, uncontrolled, without complications - Primary Hyperlipidemia, unspecified hyperlipidem ia type Essential hypertension, benign Severe nonproliferative diabetic retinop athy without macular edema associated with type 2 diabetes mellitus, unspecified la terality documented in this encounter Insurance Payer Benefit Plan / Subscriber ID Effective Dates Phone Addre ss Type Group MEDICARE MEDICARE PART xxxxxxxxxxx 2006-Fidelina [phone] 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
--- OUTSIDE RECORDS SUMMARY | 2019-10-31 23:31 | XMS REPORT | Summary of Care ---
:1955 Author Organization [facility] Address [address] [place] [address] Care Team Providers Name Role Phone Magnus Martin MD Unavailable Avani Lozano MD Unavailable Unavailable LILIBETH Dejesus Primary Care Provider Reason for Visit Reason Comments Appointment Encounter Details Date Type Department Care Team Description 08/24/2019 Telephone [facility] Urology- Suzie Don FNP Appointment [place] [address] [facility] [address] [place] [address] [place] [address] [phone] Allergies Active Allergy Reactions Severity Noted Date Comments Sulfamethoxazole-Trimetho Unknown - See 12/08/2006 prim comments Codeine Unknown - See 12/08/2006 Patient states it comments makes her feel worse, pain increases Metronidazole Other - See comments 05/24/2015 Throat swelling Morphine Anxiety 12/06/2017 Promethazine Hcl Nausea and/or 05/05/2011 Vomiting Tramadol Anxiety 06/24/2016 Pt felt "weird" documented as of this encounter (statuses as of 08/24/2019) Medications Medication Sig Dispensed Refills Start Date [...] to check 1 Each 0 03/16/2019 Active (12 Star SurvivalTOUCH VERIO IQ blood sugar 3X METER) Kit [...] times daily as needed for Itching. Insulin [place], USE DIRECTED 400 Each 3 08/12/2019 Active [...] lancets (ONETOUCH Use to check 400 Each 08/12/2019 Active DELICA PLUS LANCET) 33 blood sugar 4X gauge MiscIndications: daily. DX:E11.65 Diabetes mellitus type 2, uncontrolled, without complications Insulin Glargine inject 14 Units 15 mL 08/12/2019 Active (LANTUS SOLOSTAR U-100 under the skin INSULIN) 100 unit/mL daily. 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 Essential hypertension, benign insulin lispro Up to 30 units 3 Box 3 08/12/2019 Active (HUMALOG KWIKPEN three times daily INSULIN) 100 unit/mL according to pen sliding scale DX: injectorIndications: E11.65 Diabetes mellitus type 2, uncontrolled, without complications azelastine 137 mcg Use 1 [place] in 30 mL 08/24/2019 Active (0.1 %) nasal each nostril 2 sprayIndications: (two) times Perennial allergic daily. Use in rhinitis with seasonal each nostril as variation, Hypertrophy directed of both inferior nasal turbinates famotidine 40 mg Take 1 tablet by 30 tablet 08/24/2019 Active tabletIndications: mouth daily. Gastroesophageal reflux disease, esophagitis presence not specified, LPRD (laryngopharyngeal reflux disease), Pharyngeal dysphagia levocetirizine 5 mg Take 1 tablet by 30 tablet 08/24/2019 Active tabletIndications: mouth every Gastroesophageal evening. reflux disease, esophagitis presence not specified, LPRD (laryngopharyngeal reflux disease) pantoprazole 40 mg EC Take 1 tablet by 30 tablet 08/24/2019 Active tabletIndications: mouth daily. Gastroesophageal reflux disease, esophagitis presence not specified, LPRD (laryngopharyngeal reflux disease), Pharyngeal dysphagia chlorhexidine 0.12 % Swish and spit 473 mL 6 08/24/2019 Active mouthwashIndications: out 15 mL 2 (two) Gingivitis due to times daily. dental plaque, Dental infection vitamin b complex + C Take 1 tablet by 90 tablet 4 08/24/2019 Active + Zinc STRESS FORMULA mouth daily. tabletIndications: Gingivitis due to dental plaque, Dental infection doxycycline hyclate 50 Take 1 capsule by 28 capsule 0 08/24/19 20 Active mg capsuleIndications: mouth 2 (two) 0 Gingivitis due to times daily for dental plaque 14 days. Hospital, Clinic, or Other Ordered Dose Route Frequency Start Date End Date Status Facility Administered Medication DOBUTamine (DOBUTREX) 500 mg 460.5 mcg/min IV TITRATE 017 Active in 250mL(Fixed Dose) D5W infusionIndications: Chest pain, unspecified documented as of this encounter (statuses as of 08/24/2019) Active Problems Problem Noted Date Morbid obesity with body mass index of 40.0-49.9 07/18 Morbid obesity with body mass index of 50 or higher DAVIS (obstructive sleep apnea) 08/22/2015 Vulvar lesion 05/30/2015 Bacterial vaginosis 05/23/2015 Postmenopausal status 05/22/2015 Lichen sclerosus 05/22/2015 Postmenopausal atrophic vaginitis 05/22/2015 H/O: hysterectomy 05/22/2015 Mixed incontinence 05/22/2015 Obesity 01/16/2013 Overview: ICD10 Diagnosis Term Stereo Equipment Installer Utility Elevated alkaline phosphatase level 09/08/2012 Dizziness 02/12/2011 Vertigo of central origin 02/12/2011 Gait disturbance 02/12/2011 BPPV (benign paroxysmal positional vertigo) 02/12/2011 Vitamin D deficiency 02/18/2010 HLD (hyperlipidemia) 05/09/2009 Overview: ICD10 Diagnosis Term Stereo Equipment Installer Utility Other malaise and fatigue 02/06/2009 Hirsutism 02/06/2009 Chest pain 11/09/2008 Inflamed seborrheic keratosis 12/08/2006 Anxiety state 12/08/2006 Overview: ICD10 Diagnosis Term Stereo Equipment Installer Utility Esophageal reflux 12/08/2006 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 Other chronic pain 12/08/2006 Overview: Lower back Essential hypertension, benign 12/08/2006 Dizziness and giddiness 12/08/2006 Overview: positional Pain in joint, lower leg 12/08/2006 Overview: Knee problem Diabetes mellitus type 2, uncontrolled, without compli cations 12/08/2006 Overview: ICD10 Diagnosis Term Stereo Equipment Installer Utility documented as of this encounter (statuses as of 08/24/2019) Resolved Problems Problem Noted Date Resolved Date Vaginal lesion 05/22/2015 05/30/2015 documented as of this encounter (statuses as of 08/24/2019) Immunizations Name Administration Dates Next Due Influenza [...] [address] [facility] [address] [place] [address] [phone] 08/31/2019 Telemedicine Visit Pain Medicine Unique Street MD [address] [place] [address] [address] [place], [place] [address] 10/03/2019 Office Visit Dermatology Kolby Rai MD [address] [place] [address]. [place] [address] 10/05/2019 Office Visit Cardiology Castillo Guerra M D [address] [facility] [address] [place], [place] [address] 12/01/2019 Office Visit Ophthalmology Royce Hernández MD [address] [place] [address] 77 [address] 12/13/2019 Office Visit Internal Medicine Osiris Miranda MD [address] [place] [address] 103 [place], [place] [address] [phone] 12/23/2019 Office Visit Endocrinology Diabetes & Magnus Martin, Metabolism [address] [facility] [address] [place], [place] [address] [phone] 01/02/2020 Office Visit Otolaryngology Dianne Romero MD [address] [place] [address] [phone] Health Maintenance Due Date Last Done Comments [...] of this encounter Implants Implanted Type Area Technician Semiconductor Development Device Shelf Model / Serial Identifier Expiration / Lot Date Lens, Juvencio #Sn60wf 22.5d - [id number] LENS Left: Eye Juvencio 12/01/2020 SN60WF 22.5D / Implanted: Qty: 1 on 06/24/2016 by Liliane Langston MD at [facility] / [id number] documented as of this encounter Results Not on filedocumented in this encounter Insurance Payer Benefit Plan Subscriber ID Effective Phone Address Typ e / Group Dates MEDICARE MEDICARE PART xxxxxxxxxxx 2006-Pres [phone] Medicare A & B ent [id number] KATELIN SNELL [id number] INDIGENT CARE [facility] [id number] 2018-/ [address] [facility] [place] [address] documented as of this encounter Advance Directives Type Date Recorded Patient Communication Manager Explanati on Advance Directives and Living Will Power of Machine Molder Squeeze
--- OUTSIDE RECORDS SUMMARY | 2019-10-31 23:31 | XMS REPORT | Summary of Care ---
:1955 Author Organization [facility] Address [address] [place] [address] Care Team Providers Name Role Phone Magnus Martin MD Unavailable Avani Lozano MD Unavailable Unavailable LILIBETH Dejesus Primary Care Provider Reason for Visit Reason Comments Assessment reflux Encounter Details Date Type Department Care Team Description 08/23/2019 Telephone [facility] Ear, Nose Dianne Romero, Assessment (reflux) and Throat- [facility] [address] [place], [place] [address] [place] [address] [phone] [address] [phone] Allergies Active Allergy Reactions Severity Noted Date Comments Sulfamethoxazole-Trimetho Unknown - See 12/08/2006 prim comments Codeine Unknown - See 12/08/2006 Patient states it comments makes her feel worse, pain increases Metronidazole Other - See comments 05/24/2015 Throat swelling Morphine Anxiety 12/06/2017 Promethazine Hcl Nausea and/or 05/05/2011 Vomiting Tramadol Anxiety 06/24/2016 Pt felt "weird" documented as of this encounter (statuses as of 08/23/2019) Medications Medication Sig Dispensed Refills Start Date [...] to check 1 Each 0 03/16/2019 Active (Phase Holographic ImagingUCH VERIO IQ blood sugar 3X METER) Kit daily. DX:E11.65 blood sugar diagnostic Use to check 400 Strip 1 05/06/2019 Active (Phase Holographic ImagingUCH VERIO) strip blood sugar QID daily. DX:E11.65 clobetasoL 0.05 % Apply to area(s) 30 g 0 07/29/2019 Active creamIndications: 2 (two) times Dermatitis daily. hydrOXYzine 25 mg Take 1 tablet by 30 tablet 0 08/01/2019 Active tabletIndications: mouth 3 (three) Dermatitis times daily as needed for Itching. Insulin [place], USE DIRECTED 400 Each 3 08/12/2019 Active Disposable, (MAMI PEN FIVE TIMES A NEEDLE) 32 gauge x DAY 5/32" NdleIndications: Diabetes mellitus type 2, uncontrolled, without [...] as of this encounter (statuses as of 08/23/2019) Active Problems Problem Noted Date Morbid obesity with body mass index of 40.0-49.9 07/18 Morbid obesity with body mass index of 50 or higher DAVIS (obstructive sleep apnea) 08/22/2015 Vulvar lesion 05/30/2015 Bacterial vaginosis 05/23/2015 Postmenopausal status 05/22/2015 Lichen sclerosus 05/22/2015 Postmenopausal atrophic vaginitis 05/22/2015 H/O: hysterectomy 05/22/2015 Mixed incontinence 05/22/2015 Obesity 01/16/2013 Overview: ICD10 Diagnosis Term Talent Rep Utility Elevated alkaline phosphatase level 09/08/2012 Dizziness 02/12/2011 Vertigo of central origin 02/12/2011 Gait disturbance 02/12/2011 BPPV (benign paroxysmal positional vertigo) 02/12/2011 Vitamin D deficiency 02/18/2010 HLD (hyperlipidemia) 05/09/2009 Overview: ICD10 Diagnosis Term Talent Rep Utility Other malaise and fatigue 02/06/2009 Hirsutism 02/06/2009 Chest pain 11/09/2008 Inflamed seborrheic keratosis 12/08/2006 Anxiety state 12/08/2006 Overview: ICD10 Diagnosis Term Talent Rep Utility Esophageal reflux 12/08/2006 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 Other chronic pain 12/08/2006 Overview: Lower back Essential hypertension, benign 12/08/2006 Dizziness and giddiness 12/08/2006 Overview: positional Pain in joint, lower leg 12/08/2006 Overview: Knee problem Diabetes mellitus type 2, uncontrolled, without compli cations 12/08/2006 Overview: ICD10 Diagnosis Term Talent Rep Utility documented as of this encounter (statuses as of 08/23/2019) Resolved Problems Problem Noted Date Resolved Date Vaginal lesion 05/22/2015 05/30/2015 documented as of this encounter (statuses as of 08/23/2019) Immunizations Name Administration Dates Next Due Influenza [...] Treatment Date Type Specialty Care Team Description 08/24/2019 Telemedicine Visit Otolaryngology Dianne Romero MD [address] [place] [address] [phone] 08/25/2019 Office Visit Surgery Yanci Cosme MD [address] [facility] [address] [place] [address] [phone] 08/31/2019 Telemedicine Visit Pain Medicine Unique Street MD 301 [facility] [address] [place], [place] [address] 10/03/2019 Office Visit Dermatology Kolby Rai MD [address] [place] [address]. [place] [phone] 10/05/2019 Office Visit Cardiology Castillo Guerra M D 146 [facility] [address] [place], [place] [address] [phone] 12/01/2019 Office Visit Ophthalmology Royce Hernández MD [address] [place] [address] 77 [address] 12/13/2019 Office Visit Internal Medicine Osiris Miranda MD [address] [place] [address] 103 [place], [place] [address] 12/23/2019 Office Visit Endocrinology Diabetes & Magnus Martin, Metabolism [address] [place] [address] 208 [place], [place] [address] [phone] Health Maintenance Due Date Last Done Comments [...] of this encounter Implants Implanted Type Area Hogshead Mat Inspector Device Shelf Model / Serial Identifier Expiration / Lot Date Lens, Juvencio #Sn60wf 22.5d - [id number] LENS Left: Eye Juvencio 12/01/2020 SN60WF 22.5D / Implanted: Qty: 1 on 06/24/2016 by Liliane Langston MD at [facility] / [id number] documented as of this encounter Results Not on filedocumented in this encounter Insurance Payer Benefit Plan Subscriber ID Effective Phone Address Typ e / Group Dates MEDICARE MEDICARE PART xxxxxxxxxxx 2006-Pres [phone] Medicare A & B ent [id number] KATELIN SNELL [phone] INDIGENT CARE [facility] [id number] 2018-8/ 301 [facility] [place] [address] documented as of this encounter Advance Directives Type Date Recorded Patient Vice President Financial Explanati on Advance Directives and Living Will Power of Area Counselor
--- OUTSIDE RECORDS SUMMARY | 2019-10-31 23:32 | XMS REPORT | Summary of Care ---
:1955 Author Organization [facility] Address [address] [place] [address] Care Team Providers Name Role Phone Magnus Martin MD Unavailable Avani Lozano MD Unavailable Unavailable LILIBETH Dejesus Primary Care Provider Reason for Visit Reason Comments Notification Encounter Details Date Type Department Care Team Description 08/25/[address] [facility] Urology- Suzie Don FNP Notification [place] [address] [facility] [address] [facility] [facility] [address] [place] [address] [place] [address] [phone] Allergies Active Allergy Reactions Severity Noted Date Comments Sulfamethoxazole-Trimetho Unknown - See 12/08/2006 prim comments Codeine Unknown - See 12/08/2006 Patient states it comments makes her feel worse, pain increases Metronidazole Other - See comments 05/24/2015 Throat swelling Morphine Anxiety 12/06/2017 Promethazine Hcl Nausea and/or 05/05/2011 Vomiting Tramadol Anxiety 06/24/2016 Pt felt "weird" documented as of this encounter (statuses as of 08/25/2019) Medications Medication Sig Dispensed Refills Start Date [...] to check 1 Each 0 03/16/2019 Active (LancopeTOUCH VERIO IQ blood sugar 3X METER) Kit [...] times daily as needed for Itching. Insulin [place], USE DIRECTED 400 Each 3 08/12/2019 Active [...] without complications azelastine 137 mcg Use 1 [place] in 30 mL 08/24/2019 Active (0.1 %) [...] as of this encounter (statuses as of 08/25/2019) Active Problems Problem Noted Date Morbid obesity with body mass index of 40.0-49.9 07/18 Morbid obesity with body mass index of 50 or higher DAVIS (obstructive sleep apnea) 08/22/2015 Vulvar lesion 05/30/2015 Bacterial vaginosis 05/23/2015 Postmenopausal status 05/22/2015 Lichen sclerosus 05/22/2015 Postmenopausal atrophic vaginitis 05/22/2015 H/O: hysterectomy 05/22/2015 Mixed incontinence 05/22/2015 Obesity 01/16/2013 Overview: ICD10 Diagnosis Term Autism Motor Specialist Utility Elevated alkaline phosphatase level 09/08/2012 Dizziness 02/12/2011 Vertigo of central origin 02/12/2011 Gait disturbance 02/12/2011 BPPV (benign paroxysmal positional vertigo) 02/12/2011 Vitamin D deficiency 02/18/2010 HLD (hyperlipidemia) 05/09/2009 Overview: ICD10 Diagnosis Term Autism Motor Specialist Utility Other malaise and fatigue 02/06/2009 Hirsutism 02/06/2009 Chest pain 11/09/2008 Inflamed seborrheic keratosis 12/08/2006 Anxiety state 12/08/2006 Overview: ICD10 Diagnosis Term Autism Motor Specialist Utility Esophageal reflux 12/08/2006 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 Other chronic pain 12/08/2006 Overview: Lower back Essential hypertension, benign 12/08/2006 Dizziness and giddiness 12/08/2006 Overview: positional Pain in joint, lower leg 12/08/2006 Overview: Knee problem Diabetes mellitus type 2, uncontrolled, without compli cations 12/08/2006 Overview: ICD10 Diagnosis Term Autism Motor Specialist Utility documented as of this encounter (statuses as of 08/25/2019) Resolved Problems Problem Noted Date Resolved Date Vaginal lesion 05/22/2015 05/30/2015 documented as of this encounter (statuses as of 08/25/2019) Immunizations Name Administration Dates Next Due Influenza [...] Treatment Date Type Specialty Care Team Description 08/31/2019 Telemedicine Visit Pain Medicine Unique Street MD [address] [place] [address] RT0 5[address] [place], [place] [address] 10/03/2019 Office Visit Dermatology Kolby Rai MD [address] [place] [address]. [place] [address] 10/05/2019 Office Visit Cardiology Castillo Guerra M D 146 [facility] [address] [place] [address] [phone] 10/06/2019 Telemedicine Visit Surgery Yanci Cosme MD 2[address] [facility] [address] [place], [place] [address] 12/01/2019 Office Visit Ophthalmology Royce Hernández MD [address] [place] [address] 77 [address] 12/13/2019 Office Visit Internal Medicine Osiris Miranda MD [address] [place] [address] 103 [place], [place] [address] [phone] 12/23/2019 Office Visit Endocrinology Diabetes & Magnus Martin, Metabolism [address] [facility] 208 [place], [place] [address] [phone] 01/02/2020 Office Visit Otolaryngology Dianne Romero MD [address] [place] [address] [phone] Health Maintenance Due Date Last Done Comments [...] of this encounter Implants Implanted Type Area Financial Systems Analyst Device Shelf Model / Serial Identifier Expiration / Lot Date Lens, Juvencio #Sn60wf 22.5d - [id number] LENS Left: Eye Juvencio 12/01/2020 SN60WF 22.5D / Implanted: Qty: 1 on 06/24/2016 by Liliane Langston MD at [facility] / [id number] 1 documented as of this encounter Results Not on filedocumented in this encounter Insurance Payer Benefit Plan Subscriber ID Effective Phone Address Typ e / Group Dates MEDICARE MEDICARE PART xxxxxxxxxxx 2006-Pres [phone] Medicare A & B ent [id number] KATELIN SNELL [phone] INDIGENT CARE [facility] [id number] 2018-/ 301 [facility] [address] documented as of this encounter Advance Directives Type Date Recorded Patient Front Man Explanati on Advance Directives and Living Will Power of Supervisor Labor Gang
--- OUTSIDE RECORDS SUMMARY | 2019-10-31 23:33 | XMS REPORT | Summary of Care ---
:1955 Author Organization [facility] Address [address] [place] [address] Care Team Providers Name Role Phone Magnus Martin MD Unavailable Avani Lozano MD Unavailable Unavailable LILIBETH Dejesus Primary Care Provider Reason for Visit Reason Comments Notification Encounter Details Date Type Department Care Team Description 08/25/2019 Telephone [facility] Urology- Suzie Don FNP Notification [place] [address] [facility] [address] [facility] [address] [facility] [address] [place] [address] [place] [address] [phone] Allergies Active Allergy Reactions Severity Noted Date [...] to check 1 Each 0 03/16/2019 Active (Jacket Micro DevicesTOUCH VERIO IQ blood sugar 3X METER) Kit [...] times daily as needed for Itching. Insulin [place], USE DIRECTED 400 Each 3 08/12/2019 Active [...] without complications azelastine 137 mcg Use 1 [place] in 30 mL 08/24/2019 Active (0.1 %) [...] 05/22/2015 Obesity 01/16/2013 Overview: ICD10 Diagnosis Term Bottle Gauger Utility Elevated alkaline phosphatase level 09/08/2012 Dizziness 02/12/2011 Vertigo of central origin 02/12/2011 Gait disturbance 02/12/2011 BPPV (benign paroxysmal positional vertigo) 02/12/2011 Vitamin D deficiency 02/18/2010 HLD (hyperlipidemia) 05/09/2009 Overview: ICD10 Diagnosis Term Bottle Gauger Utility Other malaise and fatigue 02/06/2009 Hirsutism 02/06/2009 Chest pain 11/09/2008 Inflamed seborrheic keratosis 12/08/2006 Anxiety state 12/08/2006 Overview: ICD10 Diagnosis Term Bottle Gauger Utility Esophageal reflux 12/08/2006 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 Other chronic pain 12/08/2006 Overview: Lower back Essential hypertension, benign 12/08/2006 Dizziness and giddiness 12/08/2006 Overview: positional Pain in joint, lower leg 12/08/2006 Overview: Knee problem Diabetes mellitus type 2, uncontrolled, without compli cations 12/08/2006 Overview: ICD10 Diagnosis Term Bottle Gauger Utility documented as of this encounter (statuses [...] Telemedicine Visit Pain Medicine Unique Street MD [address] [place] [address] RT0 [address] [place], [place] [address] 10/03/2019 Office Visit Dermatology Kolby Rai MD [address] [place] [address]. [place] [address] 10/05/2019 Office Visit Cardiology Castillo Guerra M D 146 [facility] [address] [place] [address] [phone] 10/06/2019 Telemedicine Visit Surgery Yanci Cosme MD 2[address] [facility] [address] [place], [place] [id number] 12/01/2019 Office Visit Ophthalmology Royce Hernández MD [address] [place] [address] 12/13/2019 Office Visit Internal Medicine Osiris Miranda MD [address] [place] [address] 103 [place], [place] [address] [phone] 12/23/2019 Office Visit Endocrinology Diabetes & Magnus Martin, Metabolism [address] [facility] 208 [place], [place] [address] [phone] 01/02/2020 Office Visit Otolaryngology Dianne Romero MD [address] [place] [address] [phone] Health Maintenance Due Date Last Done Comments [...] of this encounter Implants Implanted Type Area Associate Professor Of Art History Device Shelf Model / Serial Identifier Expiration / Lot Date Lens, Juvencio #Sn60wf 22.5d - [id number] LENS Left: Eye Juvencio 12/01/2020 SN60WF 22.5D / Implanted: Qty: 1 on 06/24/2016 by Liliane Langston MD at [facility] / [id number] 1 documented as of this encounter Results Not on filedocumented in this encounter Insurance Payer Benefit Plan Subscriber ID Effective Phone Address Typ e / Group Dates MEDICARE MEDICARE PART xxxxxxxxxxx 2006-Pres [phone] Medicare A & B ent [id number] K[place]EL[place] SNELL [phone] INDIGENT CARE [facility] [id number] 2018-/ 301 [facility] [place] [address] documented as of this encounter Advance Directives Type Date Recorded Patient Operations Professional Explanati on Advance Directives and Living Will Power of Central Supply Assistant
--- OUTSIDE RECORDS SUMMARY | 2019-10-31 23:34 | XMS REPORT | Summary of Care ---
:1955 Author Organization [facility] Address [address] [place] [address] Care Team Providers Name Role Phone Magnus Martin MD Unavailable Avani Lozano MD Unavailable Unavailable LILIBETH Dejesus Primary Care Provider Reason for Visit Reason Comments Pain (Routine) Status Reason Specialty Diagnoses / Referred By Referred To Procedures Contact Contact Pending Review Pain Medicine Diagnoses Chronic generalized pain Anjelica Procedures CONSULT/REFERRAL PAIN CLINIC LILIBETH Murillo [address] [place] [id number] Encounter Details Date Type Department Care Team Description 08/31/2019 Telemedicine Visit [facility] Anesthesia [address] se Chronic pain syndrome (Primary Dx); Pain[facility] Multispecialty MD Diana Lumbar spondylosis; [address] [facility] Degenerative disc disease, l umbar; [address] [facility] [id number] Cervical spondylosis; [place], [place] Facet arthropathy[place] [phone] Allergies Active Allergy Reactions Severity Noted Date Comments Sulfamethoxazole-Trimetho Unknown - See 12/08/2006 prim comments Codeine Unknown - See 12/08/2006 Patient states it comments makes her feel worse, pain increases Metronidazole Other - See comments 05/24/2015 Throat swelling Morphine Anxiety 12/06/2017 Promethazine Hcl Nausea and/or 05/05/2011 Vomiting Tramadol Anxiety 06/24/2016 Pt felt "weird" documented as of this encounter (statuses as of 08/31/2019) Medications Medication Sig Dispensed Refills Start Date [...] to check 1 Each 0 03/16/2019 Active (CustoraUCH VERIO IQ blood sugar 3X METER) Kit daily. DX:E11.65 blood sugar diagnostic Use to check 400 Strip 1 05/06/2019 Active (CustoraUCH VERIO) strip blood sugar QID daily. DX:E11.65 clobetasoL 0.05 % Apply to area(s) 30 g 0 07/29/2019 Active creamIndications: 2 (two) times Dermatitis daily. hydrOXYzine 25 mg Take 1 tablet by 30 tablet 0 08/01/2019 Active tabletIndications: mouth 3 (three) Dermatitis times daily as needed for Itching. Insulin [place], USE DIRECTED 400 Each 08/12/2019 Active Disposable, (MAMI PEN FIVE TIMES A NEEDLE) 32 gauge x DAY " NdleIndications: Diabetes mellitus type 2, uncontrolled, without complications atorvastatin 20 mg TAKE 05/05 45 tablet 08/12/2019 Active tabletIndications: (ONE-HALF) TABLET Hyperlipidemia, BY [...] lispro Up to 30 units 3 Box 08/12/2019 Active (HUMALOG KWIKPEN three times daily INSULIN) 100 unit/mL according to pen sliding scale DX: injectorIndications: E11.65 Diabetes mellitus type 2, uncontrolled, without complications azelastine 137 mcg Use 1 [place] in 30 mL 08/24/2019 Active (0.1 %) nasal each nostril 2 sprayIndications: (two) times Perennial allergic daily. Use in rhinitis with seasonal each nostril as variation, Hypertrophy directed of both inferior nasal turbinates famotidine 40 mg Take 1 tablet by 30 tablet 11 08/24/2019 Active tabletIndications: mouth daily. Gastroesophageal reflux disease, esophagitis presence not specified, LPRD (laryngopharyngeal reflux disease), Pharyngeal dysphagia levocetirizine 5 mg Take 1 tablet by 30 tablet 11 08/24/2019 Active tabletIndications: mouth every Gastroesophageal evening. reflux disease, esophagitis presence not specified, LPRD (laryngopharyngeal reflux disease) pantoprazole 40 mg EC Take 1 tablet by 30 tablet 11 08/24/2019 Active tabletIndications: mouth daily. Gastroesophageal reflux [...] as of this encounter (statuses as of 08/31/2019) Active Problems Problem Noted Date Morbid obesity with body mass index of 40.0-49.9 07/18 Morbid obesity with body mass index of 50 or higher DAVIS (obstructive sleep apnea) 08/22/2015 Vulvar lesion 05/30/2015 Bacterial vaginosis 05/23/2015 Postmenopausal status 05/22/2015 Lichen sclerosus 05/22/2015 Postmenopausal atrophic vaginitis 05/22/2015 H/O: hysterectomy 05/22/2015 Mixed incontinence 05/22/2015 Obesity 01/16/2013 Overview: ICD10 Diagnosis Term Shackler Utility Elevated alkaline phosphatase level 09/08/2012 Dizziness 02/12/2011 Vertigo of central origin 02/12/2011 Gait disturbance 02/12/2011 BPPV (benign paroxysmal positional vertigo) 02/12/2011 Vitamin D deficiency 02/18/2010 HLD (hyperlipidemia) 05/09/2009 Overview: ICD10 Diagnosis Term Shackler Utility Other malaise and fatigue 02/06/2009 Hirsutism 02/06/2009 Chest pain 11/09/2008 Inflamed seborrheic keratosis 12/08/2006 Anxiety state 12/08/2006 Overview: ICD10 Diagnosis Term Shackler Utility Esophageal reflux 12/08/2006 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..] on filedocumented in this encounter Progress Notes Unique Street MD - 08/31/2019 10:00 AM CDTThe pain clinic appointment today was provided through telehealth, with the patient located at home and with myself located in the clinic. Dr. Wells, resident, called and assessed patient and then discussed the assessment and plan with me. I agree with resident's note as written. I called the patient and reviewed assessment and plan. A total of 25 minutes was spent on the telephone call with the patient. She was previously evaluated in the pain clinic by Dr Muro in 2009 and she is not interested inany interventions at this time. She only wants to be prescribed flexeril. This is not a controlled substance and can be prescribed by PCP. Doe Wells MD - 08/31/2019 10:00 AM CDT PAIN MANAGEMENT TELEMEDICINE INITIAL CONSULTATION Verbal consent obtained from Patient: Liss Rivera for telehealth services provided below. Communication with patient was conducted via Telephone due to patient unable to obtain video call option. Location of Patient: Home Location of Provider: Home Date of Service: 08/31/2019 The patient was not physically present for this interview. Referring Provider: Lidia Dejesus FNP Reason for Consultation: chronic generalized pain. Chief Complaint: chronic low back pain History of Present illness: Liss Rivera is a 63 year old female with history of DM2, depression/anxiety, HTN, DAVIS and chronic pain who presents to clinic for evaluation. The pain started over 5 years ago, and is progressively worsening. The pain is located in low back. The pain is constant, and progressively worsens in the evenings. The pain does not radiate. The painis described as dull ache. The pain is improved with ibuprofen. The pain is worse with prolonged sitt ing/standing, walking. The pain is associated with occasional weakness. The pain limits the amount of sleep that she is able to get. She also states that she has pain in various joints and in her neck. Denies any changes in bowel or bladder incontinence from back pain. The patient has participated inphysical therapy, helped transiently with her low back pain. Prior interventions none. PAIN NRS SCALE 0-10 SCORE OVER LAST WEEK (0 = no pain and 10 = worst pain imaginable): Best:6/10 Worst: 9/10 Now: 6/10 CURRENT PAIN REGIMEN: -Ibuprofen 200mg 6 per day ADVERSE EFFECTS FROM CURRENT REGIMEN: None Noted FUNCTIONAL STATUS ON CURRENT REGIMEN: Able to complete ADLs, uses a cane for long distance OTHER MEDS TRIED/ ADVERSE SIDE EFFECTS: Muscle relaxants: Flexeril Neuropathic agents: Gabapentin, Cymbalta NSAIDS: Naproxen, Mobic Current Outpatient Medications Medication Sig Dispense Refill azelastine 137 mcg (0.1 %) nasal spray Use 1 [place] in each nostril 2 (two) times daily. Use in each nostril as directed 30 mL 11 chlorhexidine 0.12 % mouthwash Swish and spit out 15 mL 2 (two) times daily. 473 mL 6 doxycycline hyclate 50 mg capsule Take 1 capsule by mouth 2 (two) times daily for 14 days. 28 capsule 0 famotidine 40 mg tablet Take 1 tablet by mouth daily. 30 tablet 11 levocetirizine 5 mg tablet Take 1 tablet by mouth every evening. 30 tablet 11 pantoprazole 40 mg EC tablet Take 1 tablet by mouth daily. 30 tablet 11 vitamin b complex + C + Zinc STRESS FORMULA tablet Take 1 tablet by mouth daily. 90 tablet 4 amLODIPine 10 mg tablet Take 1 tablet by mouth daily. 90 tablet 3 atorvastatin 20 mg tablet TAKE 1/2 (ONE-HALF) TABLET BY MOUTH ONCE DAILY 45 tablet 3 Insulin Glargine (LANTUS SOLOSTAR U-100 INSULIN) 100 unit/mL (3 mL) injection inject 14 Units under the skin daily. DX: E11.65 15 mL 1 insulin lispro (HUMALOG KWIKPEN INSULIN) 100 unit/mL pen injector Up to 30 units three times daily according to sliding scale DX: E11.65 3 Box 3 Insulin [place], Disposable, (MAMI PEN NEEDLE) 32 gauge x 5/32" Ndle USE DIRECTED FIVE TIMES A DAY 400 Each 3 lancets (hint DELICA PLUS LANCET) 33 gauge Misc Use to check blood sugar 4X daily. DX:E11.32418 Each 1 lisinopril 20 mg tablet Take 1 tablet by mouth 2 (two) times daily. Dx: E11.65 180 tablet 3 hydrOXYzine 25 mg tablet Take 1 tablet by mouth 3 (three) times daily as needed for Itching. 30 tablet 0 clobetasoL 0.05 % cream Apply to area(s) 2 (two) times daily. 30 g 0 blood sugar diagnostic (MerchMeTOUCH VERIO) strip Use to check blood sugar QID daily. DX:E11.65 400 Strip 1 Blood-Glucose Meter (hint VERIO IQ METER) Kit Use to check blood sugar 3X daily. DX:E11.65 1Each 0 omeprazole 40 mg capsule Take 1 capsule by mouth daily. 30 capsule 3 busPIRone 10 mg tablet Take 1 tablet by mouth 2 (two) times daily. 60 tablet 2 dicyclomine (BENTYL) 20 mg tablet Take 1 tablet by mouth 4 (four) times daily as needed for Abdominal pain. 20 tablet 0 indomethacin 50 mg capsule Take 1 capsule by mouth 3 (three) times daily with meals as needed for Pain. 30 capsule 0 cyclobenzaprine 10 mg tablet Take 1 tablet by mouth 2 (two) times daily as needed for Muscle Spasms. 15 tablet 0 cetirizine-psuedoephedrine (ZYRTEC-D) 5-120 mg per tablet Take 1 tablet by mouth 2 (two) times daily. chlorhexidine 0.12 % mouthwash Swish and spit out 5 mL daily. albuterol (PROAIR HFA) 90 mcg/actuation inhaler Inhale 2 Puffs every 6 (six) hours as needed forWheezing or Shortness of Breath (prescribe with aerochamber (spacer)). 1 Inhaler 1 mupirocin (BACTROBAN) 2 % ointment Apply to area(s) 3 (three) times daily. 1 Tube 2 ibuprofen (MOTRIN) 800 mg tablet Take 1 Tab by mouth as needed. aspirin 81 mg chewable tablet Take 81 mg by mouth daily. Current Facility-Administered Medications Medication Dose Route Frequency Last Rate Last Dose DOBUTamine (DOBUTREX) 500 mg in 250mL(Fixed Dose) D5W infusion 5 mcg/kg/min Intravenous TITRATE 82.89 mL/hr at 12/12/16 0954 30 mcg/kg/min at 12/12/16 0954 Past Medical History: Diagnosis Date Abnormal uterine [...] f/u; 06/26/10 Obesity 01/16/2013 ICD10 Diagnosis Term Shackler Utility DAVIS (obstructive sleep apnea) 08/22/2015 Osteoporosis Other isolated or specific phobias Postmenopausal atrophic vaginitis 05/22/2015 PTSD (post-traumatic stress disorder) SEBORRHEIC KERATOSIS INFLAMED 12/08/2006 Type II or unspecified type diabetes mellitus without mention of complication, uncontrolled 12/08/2006 Urinary incontinence Vertigo Past Surgical History: Procedure Laterality Date SECTION COLONOSCOPY ENDOLASER PHOTOCOAGULATION Left 07/17/2016 Surgeon: Royce Buchanan MD; Location: [place] OR [facility] EYE SERVICE OR PROCEDURE right eye surgery OPEN CARPAL TUNNEL RELEASE both wrist OTHER muscle reconstruction in butt PARS PLANA VITRECTOMY Left 07/17/2016 Surgeon: Royce Buchanan MD; Location: [place] OR [facility] PHACOEMULSIFICATION OF CATARACT WITH INTRAOCULAR LENS IMPLANT 10/16/1998 right eye-+18.0D-with Yag PHACOEMULSIFICATION OF CATARACT WITH INTRAOCULAR LENS IMPLANT Left 06/24/2016 Surgeon: Liliane Luna; Location: [place] [facility] REMOVAL GALLBLADDER VAGINAL HYSTERECTOMY YAG LASER OCULAR CAPSULOTOMY Left 04/07/2019 Dr. Buchanan Review of Systems (BOLDED IF POSITIVE, OTHERWISE NEGATIVE) Other pertinent positives annotated above in HPI. General: Fatigue, Unintentional Weight Loss or Weight Gain HEENT: Dry Mouth Cardio: Myocardial infarction/Heart Attack, Heart Rhythm Abnormalities, Abnormal EKGs, History of Coronary Stents, Blood Thinning Medication (Aspirin, Plavix/Clopidogrel, Heparin/Lovenox) Pulm: Obstructive Sleep Apnea, Snore at night, Use CPAP machine, Smoker, Chronic Obstructive Pulmonary Disease (COPD) GI: Constipation, Diarrhea, Nausea and Peptic Ulcer Disease, Blood in Stool : Difficulty Urinating Endo: Diabetes and Steroid use Neuro: Glaucoma, Difficulty Walking, Headaches, Numbness, Seizures, Strokes and Weakness MS: Neck Pain, Back Pain, Back Surgery and Muscle Aches Heme: Clotting Difficulties and Easy Bleeding Sleep: Daytime Somnolence, Fogginess of Thought, Inability to Complete Tasks, Insomnia Psych: Depression, Anxiety, Thoughts Harming Oneself or Thoughts of Harming Others Physical Exam: Due to the nature of the telemedicine encounter, a complete physical exam was not possible. Laboratory Results for LISS RIVERA ( ) as of 08/31/2019 08:21 06/03/2019 14:02 NA 139 K 4.4 CL 103 CO2 TOTAL 24 AGAP 12 BUN 20 GLUCOSE 236 (H) CREATININE 0.63 eGFR CALCULATION (non ) 94.8 eGFR CALCULATION () 114.9 TOTAL BILI 0.7 CALCIUM 9.7 T PROTEIN 8.6 (H) ALBUMIN 4.6 TROPONIN I <0.012 ALK PHOS 126 (H) ALTv 19 AST(SGOT) 35 Radiology Xray Lumbar 05/2019 IMPRESSION Multilevel degenerative disc disease without appreciable acute fracture lines or compressions. MRI Lumbar 2013 IMPRESSION: Moderate to severe bilateral neural foraminal narrowing at L5/S1. Grade I anterolisthesis, spondylosis, and spondyloarthrosis combine to cause multilevel mild spinal canal stenosis at L5/S1. Bilateral spondylolyses at the same level. Small central disc protrusion at L4/L5 MRI Cervical 2013 IMPRESSION: Multilevel cervical spondylosis and mild spondyloarthrosis result in moderate spinal canal stenosis at C5-C6 and C6-C7, unchanged is the foot 07/09/11 study. Medical Decision Making: Liss Rivera is a 63 year old female with Dx: ICD-10-CM ICD-9-CM 1. Chronic pain syndrome G89.4 338.4 2. Lumbar spondylosis M47.816 721.3 3. Degenerative disc disease, lumbar M51.36 722.52 4. Cervical spondylosis M47.812 721.0 5. Facet arthropathy, lumbar M47.816 721.3 Assessment/Plan: Liss Rivera is a 63 year old female with history of DM2, depression/anxiety, HTN, DAVIS and chronic pain back pain from lumbar spondylosis, facet arthropathy and degenerative disc disease. Recommend PT to improve strengthening, conditioning and mobility. Recommend some conservative therapies for pain relief such as lidocaine cream/patches, stretching, massage, and heat. Discussed performing lumbar facet joint injections; but she is not interested in any intervention. Recommend the PCP prescribe flexeril 5mg TID. 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 A total of 40 minutes was spent on the Telephone due to patient unable to obtain video call option with the patient. DOE WELLS MD documented in this encounter Plan of Treatment Date Type Specialty Care Team Description 10/03/2019 Office Visit Dermatology Kolby Rai MD [address] [place] [address]. [place] [id number] 10/05/2019 Office Visit Cardiology Castillo Guerra M D [address] [facility] [address] [place], [place] [address] [phone] 10/06/2019 Office Visit Surgery Yanci Cosme MD [address] [facility] [address] [place] [address] [phone] 12/01/2019 Office Visit Ophthalmology Royce Hernández MD [address] [place] [address] [phone] 12/13/2019 Office Visit Internal Medicine Osiris Miranda MD [address] [facility] [address] [place], [place] [address] [phone] 12/23/2019 Office Visit Endocrinology Diabetes & Black yMagnus MD Metabolism [address] [place] [address] [address] [place], [place] [address] [phone] 01/02/2020 Office Visit Otolaryngology Dianne Romero MD [address] [place], [place] [address] [phone] Health Maintenance Due Date Last Done Comments [...] of this encounter Implants Implanted Type Area Ballpoint Pens Assembler Device Shelf Model / Serial Identifier Expiration / Lot Date Lens, Juvencio #[id number] 22.5d - [id number] LENS Left: Eye Juvencio 12/01/2020 [id number] 22.5D / Implanted: Qty: 1 on 06/24/2016 by Liliane Langston MD at [facility] NA / [id number] documented as of this encounter Results Not on filedocumented in this encounter Visit Diagnoses Diagnosis Chronic pain syndrome - Primary Lumbar spondylosis Lumbosacral spondylosis without myelopat hy Degenerative disc disease, lumbar Degeneration of lumbar or lumbosacral in tervertebral disc Cervical spondylosis Cervical spondylosis without myelopathy Facet arthropathy, lumbar Lumbosacral spondylosis without myelopat hy documented in this encounter Insurance Payer Benefit Plan Subscriber ID Effective Phone Address Typ e / Group Dates MEDICARE MEDICARE PART xxxxxxxxxxx 2006-Pres [phone] Medicare A & B ent [id number] KATELIN SNELL [phone] INDIGENT CARE ICF [id number] 2018- [facility] 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
--- OUTSIDE RECORDS SUMMARY | 2019-10-31 23:34 | XMS REPORT | Summary of Care ---
:1955 Author Organization [facility] Address [address] [place] [address] Care Team Providers Name Role Phone Magnus Martin MD Unavailable Avani Lozano MD Unavailable Unavailable LILIBETH Dejesus Primary Care Provider Reason for Referral (PRIMO) Status Reason Specialty Diagnoses / Procedures Referred By Ann donnellyerred To Contact Contact New Request Gastroenterology Diagnoses Gastroesophageal reflux disease, esophagitis presence not specified Romero, Procedures CONSULT/REFERRAL GASTROENTEROLOGY Dianne Puentes MD [address] [place] [address] Reason for Visit Reason Comments REFLUX Encounter Details Date Type Department Care Team Description 08/24/[address] Telemedicine [address] [facility] Cancer Romero, Per ennial allergic rhinitis with seasonal variation (Primary Dx); Center-Head and Dianne Puentes MD Gastroesophageal reflux disease, esophag itis presence not specified; Neck Surgery [address] LPRD (laryngopharyngeal refl ux disease); [address] [facility] Hypertrophy of both inferior nasal turbi nates; [address] [place], [place] Mild intermittent asthma, un complicated; [place] [address] Gingivitis due to dental plaque; [id number] Dental infection; [phone] Pharyngeal dysp hagia (Fax) Allergies Active Allergy Reactions Severity Noted Date [...] to check 1 Each 0 03/16/2019 Active ([employer] VERIO IQ blood sugar 3X METER) Kit [...] times daily as needed for Itching. Insulin Burnside, USE DIRECTED 400 Each 3 08/12/2019 Active Disposable, (MAMI PEN FIVE TIMES A NEEDLE) 32 gauge x DAY " NdleIndications: Diabetes mellitus type 2, uncontrolled, without complications atorvastatin 20 mg TAKE 1/ 45 tablet 08/12/2019 Active tabletIndications: (ONE-HALF) TABLET [...] without complications azelastine 137 mcg Use 1 Midland in 30 mL 11 08/24/2019 Active (0.1 %) nasal each nostril [...] 05/22/2015 Obesity 01/16/2013 Overview: ICD10 Diagnosis Term Hooker Laster Utility Elevated alkaline phosphatase level 09/08/2012 Dizziness 02/12/2011 Vertigo of central origin 02/12/2011 Gait disturbance 02/12/2011 BPPV (benign paroxysmal positional vertigo) 02/12/2011 Vitamin D deficiency 02/18/2010 HLD (hyperlipidemia) 05/09/2009 Overview: ICD10 Diagnosis Term Hooker Laster Utility Other malaise and fatigue 02/06/2009 Hirsutism 02/06/2009 Chest pain 11/09/2008 Inflamed seborrheic keratosis 12/08/2006 Anxiety state 12/08/2006 Overview: ICD10 Diagnosis Term Hooker Laster Utility Esophageal reflux 12/08/2006 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 Other chronic pain 12/08/2006 Overview: Lower back Essential hypertension, benign 12/08/2006 Dizziness and giddiness 12/08/2006 Overview: positional Pain in joint, lower leg 12/08/2006 Overview: Knee problem Diabetes mellitus type 2, uncontrolled, without compli cations 12/08/2006 Overview: ICD10 Diagnosis Term Hooker Laster Utility documented as of this encounter (statuses [...] filedocumented in this encounter Patient Instructions Patient InstructionsSiddDianne owens MD - 08/24/2019 9:45 AM CDTStress B complex--should contain vitamin c, B vitamin, zinc Covid-19 infection symptoms and signs, including sore throat, flu like symptoms, cough, shortness ofbreath, persistent n/v/diarrhea, loss of smell/taste and to call [facility] [employer] operator/access line for telescreening and recommendations, do not go to urgent care/ER since it may expose you to infection. Discussed that elderly 65+ are more vulnerable and should contact if fever >99.6, younger fever is >100.4. Discussed the importance of staying home and maintaining distance from other people, practicing strict hand-washing. Very important to go to dentist once they open due to severe gingivitis Very important to get appointment with Gastroenterology Can hold atorvastatin while taking doxycycline (antibiotic). Don't take antibiotic at same time as vitamin documented in this encounter Progress Notes Dianne Romero MD - 08/24/2019 9:45 AM CDT ENT TELEHEALTH NOTE Verbal consent obtained from Patient: Liss Ro for telehealth services provided below. Type of telehealth: Video (poor quality) with audio connection through [facility] Location of Patient: Home Location of Provider: [facility] Date of Service: 08/24/2019 Total time on phone: 37 minutes Chief Complaint: Reflux and swallowing problems, allergy problems HPI: Liss Ro is a 63 year old female with a Pmhx as listed below including GERD, [place] presenting for evaluation of GERD. She was last seen in 2013 and has not been back due to transportation issues. Today she reports having issues with allergies and GERD She was recommend to follow up with GI in 2014 but did not do so as she has transportation issues. . She reports having a colonoscopy a long time ago, but no hx EGD. She endorses very poor gums/dental health, chronic mouth pain and reports her gums bleed intermittently and at night she thought she was choking on saliva then when she spit out into a tissue there was bright red blood and she is unsure if it was coming from her esophagus or her gums, she was Rx Peridex in the past but does not have anymore. She has not seen dentist in long time. She does take a baby asprin daily. She reports losing weight recently after increasing water intake and decreasing diet coke. She reports her diabetes is staying under 200. She reports intermittent anxiety attacks and every minute she has a cough, throat clearing currently on lisinopril. She endorses voice changes as well--gets worse when reflux is worse and also gets worse when she hasmor postnasal drainage. She is no longer taking omeprazole, took pepcid complete yesterday for epigastric pain, she used to take Dexilant in the past that worked well for her. She reports trouble swallowing intermittently, has to drink water bran with dry foods. She endorses forehead and nasal pressure, bilateral nasal congestion, is not longer taking any allergy medications. She reports blowing hernose but nothing comes out, does have thick drainage intermittently. She denies ear pain/hearing loss. She wakes up nauseated with her mouth feeling weird yesterday. Denies fever, SOB, myalgias. She does get sore throat when her reflux and allergies are flared up. She is staying home and has not had any sick exposures. PMH: Past Medical History: Diagnosis Date Abnormal uterine [...] f/u; 06/26/10 Obesity 01/16/2013 ICD10 Diagnosis Term Hooker Laster Utility DAVIS (obstructive sleep apnea) 08/22/2015 Osteoporosis Other isolated or specific phobias Postmenopausal atrophic vaginitis 05/22/2015 PTSD (post-traumatic stress disorder) SEBORRHEIC KERATOSIS INFLAMED 12/08/2006 Type II or unspecified type diabetes mellitus without mention of complication, uncontrolled 12/08/2006 Urinary incontinence Vertigo PSH: Past Surgical History: Procedure Laterality Date SECTION COLONOSCOPY ENDOLASER PHOTOCOAGULATION Left 07/17/2016 Surgeon: Royce Buchanan MD; Location: [place] [facility] EYE SERVICE OR PROCEDURE right eye surgery OPEN CARPAL TUNNEL RELEASE both wrist OTHER muscle reconstruction in butt PARS PLANA VITRECTOMY Left 07/17/2016 Surgeon: Royce Buchanan MD; Location: [place] OR [facility] PHACOEMULSIFICATION OF CATARACT WITH INTRAOCULAR LENS IMPLANT 10/16/1998 right eye-+18.0D-with Yag PHACOEMULSIFICATION OF CATARACT WITH INTRAOCULAR LENS IMPLANT Left 06/24/2016 Surgeon: Liliane Luna; Location: [facility] OR Location REMOVAL GALLBLADDER VAGINAL HYSTERECTOMY YAG LASER OCULAR CAPSULOTOMY Left 04/07/2019 Dr. Buchanan Current Meds Current Outpatient Medications on File Prior to Visit Medication Sig Dispense Refill amLODIPine 10 mg tablet Take 1 tablet [...] scale DX: E11.65 3 Box 3 Insulin Burnside, Disposable, (MAMI PEN NEEDLE) 32 gauge x 5/32" Ndle USE DIRECTED FIVE TIMES A DAY 400 Each 3 lancets (BebitosTOUCH DELICA PLUS LANCET) 33 gauge Misc Use to check blood sugar 4X daily. DX:E11.90999 Each 1 lisinopril 20 mg tablet Take 1 tablet by mouth 2 (two) times daily. Dx: E11.65 180 tablet 3 hydrOXYzine 25 mg tablet Take 1 tablet by mouth 3 (three) times daily as needed for Itching. 30 tablet 0 clobetasoL 0.05 % cream Apply to area(s) 2 (two) times daily. 30 g 0 blood sugar diagnostic (BebitosTOUCH VERIO) strip Use to check blood sugar QID daily. DX:E11.65 400 Strip 1 Blood-Glucose Meter (BebitosTOUCH VERIO IQ METER) Kit Use to check [...] mg by mouth daily. Current Facility-Administered Medications on File Prior to Visit Medication Dose Route Frequency Provider Last Rate Last Dose DOBUTamine (DOBUTREX) 500 mg in 250mL(Fixed Dose) D5W infusion 5 mcg/kg/min Intravenous TITRATE Castillo Guerra MD 82.89 mL/hr at 12/12/16 0954 30 mcg/kg/min at 12/12/16 0954 Allergies: Allergies Allergen Reactions Bactrim [Sulfamethoxazole-Trimethoprim] Unknown - See comments Codeine Unknown - See comments Patient states it makes her feel worse, pain increases Flagyl [Metronidazole] Other - See comments Throat swelling Morphine Anxiety Phenergan [Promethazine Hcl] Nausea and/or Vomiting Tramadol Anxiety Pt felt "weird" Family History: Family History Problem Relation Age of Onset Coronary Heart Disease Mother [place] @ 60s Hypertension Mother Arthritis Mother High cholesterol Mother Thyroid Mother Diabetes Mother Osteoporosis Mother Coronary Heart Disease Father enlarged heart Coronary Heart Disease Brother AK @ 60 Coronary Heart Disease Sister [place] @ 50s Hypertension Mother Hypertension Sister Diabetes Mother Diabetes Brother Heart Brother Hypertension Brother Lipids Brother Thyroid Mother Asthma NoFHx defects NoFHx Genetic NoFHx Breast Cancer NoFHx Colon Cancer NoFHx Ovarian Cancer NoFHx Uterine Cancer NoFHx Cancer NoFHx Depression NoFHx Mental retardation NoFHx Neurological NoFHx Psychiatry NoFHx Social: Social History Socioeconomic History Marital status: Spouse [...] file Gets together: Not on file Attends mosque service: Not on file Active member of [...] alone; No current domestic violence or abuse. ROS: Constitutional: reports no weight loss/gain, no anorexia, no fever Sleep: reports hx DAVIS Eyes: No recent vision change or blurry vision Allergy/immunology: No seasonal nasal congestion or seasonal allergies Respiratory: reports cough; reports shortness of breath with anxiety, reports intermittent asthma, copd or chest pain CVS: No chest pain, no hx heart attack, reports hx htn, reports hx hyperlipidemia, no hx arrhythmia GI: No dysphagia, no indigestion, reflux, no hx stomach ulcer Neurological: reports anxeity; no hx stroke,reports hx vertigo, no hx developmental delay Skin: no hx rash, no hx eczema, no hx food allergies Infectious: no hiv/aids/hepatitis Endocrine: reports hx diabetes, reports hx thyroid dz Dental: no recent dental work Musculoskeletal: Reports multiple arthritis issues; no history of RA/autoimmune dz TeleHealth Examination: Patient appears stated age Psych: Good comprehension and normal affect Awake, alert, oriented & in no apparent distress. Good voice, no hoarseness or stridor Vitals: Weight: 176 Height: 4'11" Eyes: EOMI, no upper lid or lower lid swelling/bruisig Neuro: Face symmetrical, cranial nerves bilaterally intact Skin: no obvious facial lesions Salivary glands symmetrical on televisualization Ears: Bilateral external ear/rabia and ear canals appears appear normal on televisualization, on obvious swelling or drainage Nose: No external nasal lesions or swelling, bilateral nostrils looks normal, inferior turbinates visible and show mild congestion Oral cavity: No trismus, no obvious masses, very poor dentition Neck: no obvious masses seen on televisualization Lungs: Good respiratory effort when talking, no obvious tracheal tugging, stertor, stridor or wheezing Assessment: Liss Ro is a 63 year old female with ongoing severe reflux, dental problems andgingivitis, cough with likely intermittent asthma. Cough mjultifactorial--due to reflux, allergies and also ACEI (lisinopril). She needs to get EGD with GI for ongoing severe GERD for so many years. She also needs dental follow up when safe covid ramos due to severe gingivitis and poor dentition ICD-10-CM ICD-9-CM 1. Perennial allergic rhinitis with seasonal variation J30.89 477.9 J30.2 2. Gastroesophageal reflux disease, esophagitis presence not specified K21.9 530.81 3. LPRD (laryngopharyngeal reflux disease) K21.9 478.79 4. Hypertrophy of both inferior nasal turbinates J34.3 478.0 5. Mild intermittent asthma, uncomplicated J45.20 493.90 6. Gingivitis due to dental plaque K05.10 523.10 7. Dental infection K04.7 522.4 8. Pharyngeal dysphagia R13.13 787.23 Plan: Gastroesophageal reflux disease, esophagitis presence not specified, dysphagia, LPRD, persistent cough - famotidine 40 mg tablet; Take 1 tablet by mouth daily. Dispense: 30 tablet; Refill: 11 - levocetirizine 5 mg tablet; Take 1 tablet by mouth every evening. Dispense: 30 tablet; Refill: 11 - pantoprazole 40 mg EC tablet; Take 1 tablet by mouth daily. Dispense: 30 tablet; Refill: 11 - CONSULT/REFERRAL GASTROENTEROLOGY for EGD -reflux lifestyle changes -discuss with PCP abt switching to non ACEI due to persistent cough Perennial allergic rhinitis with seasonal variation/ith/mild intermittent asthma - azelastine 137 mcg (0.1 %) nasal spray; Use 1 Midland in each nostril 2 (two) times daily. Use in each nostril as directed Dispense: 30 mL; Refill: 11 -Rx xyzal 5 mg qhs Will avoid singulair due to hx PTSD/anxiety Severe Gingivitis due to dental plaque/dental infection - chlorhexidine 0.12 % mouthwash; Swish and spit out 15 mL 2 (two) times daily. Dispense: 473 mL; Refill: 6 - vitamin b complex + C + Zinc STRESS FORMULA tablet; Take 1 tablet by mouth daily. Dispense: 90 tablet; Refill: 4 - doxycycline hyclate 50 mg capsule; Take 1 capsule by mouth 2 (two) times daily for 14 days. Dispense: 28 capsule; Refill: 0 - Take a probiotic and stop atorvastatin while taking abx course Dental infection - chlorhexidine 0.12 % mouthwash; Swish and spit out 15 mL 2 (two) times daily. Dispense: 473 mL; Refill: 6 - vitamin b complex + C + Zinc STRESS FORMULA tablet; Take 1 tablet by mouth daily. Dispense: 90 tablet; Refill: 4 See dentist when safe covid ramos and better dental hygiene--try water pik Discussed that ongoing dental infection/gingivitis increases risk for CAD/CVA as well as complications such as dental/neck abscesses which can be as severe as Pal's with airway compromise Discussed covid-19 infection symptoms and signs, including sore throat, flu like symptoms, cough, shortness of breath, persistent n/v/diarrhea, loss of smell/taste and to call [employer] operator/access linefor telescreening and recommendations, do not go to urgent care/ER since it may expose you to infecti on. Discussed that elderly 65+ are more vulnerable and should contact if fever >99.6, younger fever is > 100.4. Discussed the importance of staying home and maintaining distance from other people, practicing strict hand-washing. This visit did not involve counseling and coordination that comprised more than 50% of the visit time. RTC 4-5 months, see GI earlier After visit summary (AVS ) documentation will be available through [employer] for this encounter. Scribe's Attestation Leonarda Sampson , ajith scribing for, and in the presence of, Dianne Romero MD who performed the services described here-in. Leonarda Lucas, August 24, 2019, 9:24 AM Physician's Attestation Physician Attestation: I, Dr. Romero, personally performed and/or ordered the services in this documentation, as scribedby Leonarda Lucas, in my presence, and it is both accurate and complete. I personally performed this televisit on 08/24/19. I personally performed the history of presenting illness and reviewed the patient's past medical/surgical history, medication, allergy, review of symptoms, family and social histories. I also personally performed the entire televisit examination and formulated the assessment/diagnoses and plan/prescriptions. I reviewed and edited the relevant diagnoses: ICD-10-CM ICD-9-CM 1. Perennial allergic rhinitis with seasonal variation J30.89 477.9 J30.2 2. Gastroesophageal reflux disease, esophagitis presence not specified K21.9 530.81 3. LPRD (laryngopharyngeal reflux disease) K21.9 478.79 4. Hypertrophy of both inferior nasal turbinates J34.3 478.0 5. Mild intermittent asthma, uncomplicated J45.20 493.90 6. Gingivitis due to dental plaque K05.10 523.10 7. Dental infection K04.7 522.4 8. Pharyngeal dysphagia R13.13 787.23 I actively participated in the decision-making process. Please see the completed clinic note for additional details. Dianne Romero MD, FAAOA, [facility] Otolaryngology Faculty documented in this encounter Plan of Treatment Date Type Specialty Care Team Description 08/31/2019 Telemedicine Visit Pain Medicine Unique Street MD [address] [place] [address] [address] [place], [place] [address] 10/03/2019 Office Visit Dermatology Kolby Rai MD [address] [place] [address]. [place] [address] 10/05/2019 Office Visit Cardiology Castillo Guerra M D [address] [place] [address] [address] [place], [place] [address] [phone] 10/06/2019 Telemedicine Visit Surgery Yanci Cosme MD [address] [facility] [address] [place] [address] [phone] 12/01/2019 Office Visit Ophthalmology Royce Hernández MD [address] [place] [address] 12/13/2019 Office Visit Internal Medicine Osiris Miranda MD [address] [facility] [address] [place], [place] [address] [phone] 12/23/2019 Office Visit Endocrinology Diabetes & Magnus Martin, Metabolism [address] [facility] [address] [place], [place] [address] [phone] 01/02/2020 Office Visit Otolaryngology Dianne Romero MD [address] [place] [address] [phone] Health Maintenance Due Date Last Done Comments [...] of this encounter Implants Implanted Type Area Administration Clerk Device Shelf Model / Serial Identifier Expiration / Lot Date Lens, Juvencio #[id number] 22.5d - [id number] LENS Left: Eye Juvencio 12/01/2020 [id number] 22.5D / Implanted: Qty: 1 on 06/24/2016 by Liliane Langston MD at [facility] / [id number] documented as of this encounter Results Not on filedocumented in this encounter Visit Diagnoses Diagnosis Perennial allergic rhinitis with seasona l variation - Primary Allergic rhinitis, cause unspecified Gastroesophageal reflux disease, esophag itis presence not specified LPRD (laryngopharyngeal reflux disease) Other diseases of larynx Hypertrophy of both inferior nasal turbi nates Hypertrophy of nasal turbinates Mild intermittent asthma, uncomplicated Unspecified asthma Gingivitis due to dental plaque Dental infection Acute apical periodontitis of pulpal edna gin Pharyngeal dysphagia Dysphagia, pharyngeal phase documented in this encounter Insurance Payer Benefit Plan Subscriber ID Effective Phone Address Typ e / Group Dates MEDICARE MEDICARE PART xxxxxxxxxxx 2006-Pres 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
--- OUTSIDE RECORDS SUMMARY | 2019-10-31 23:35 | XMS REPORT | Summary of Care ---
:1955 Author Organization [facility] Address [address] [place] [id number] Care Team Providers Name Role Phone Magnus Martin MD Unavailable Avani Lozano MD Unavailable Unavailable LILIBETH Dejesus Primary Care Provider Encounter Details Date Type Department Care Team Description 08/05/2019 Patient Secure [facility] Pediatric Aicha Garcia, and Adult Primary Care- [place] [address] [place] [address] [address] [facility] [place], [place] [address] [id number] [place] [address] [phone] Allergies Active Allergy Reactions Severity Noted Date Comments Sulfamethoxazole-Trimetho Unknown - See 12/08/2006 prim comments Codeine Unknown - See 12/08/2006 Patient states it comments makes her feel worse, pain increases Metronidazole Other - See comments 05/24/2015 Throat swelling Morphine Anxiety 12/06/2017 Promethazine Hcl Nausea and/or 05/05/2011 Vomiting Tramadol Anxiety 06/24/2016 Pt felt "weird" documented as of this encounter (statuses as of 09/10/2019) Medications Medication Sig Dispensed Refills Start Date [...] to check 1 Each 0 03/16/2019 Active (myPizza.comUCH VERIO IQ blood sugar 3X METER) Kit daily. DX:E11.65 blood sugar diagnostic Use to check 400 Strip 1 05/06/2019 Active (SoundBetterTOUCH VERIO) strip blood sugar QID daily. DX:E11.65 clobetasoL 0.05 % Apply to area(s) 30 g 0 07/29/2019 Active creamIndications: 2 (two) times Dermatitis daily. hydrOXYzine 25 mg Take 1 tablet by 30 tablet 0 08/01/2019 Active tabletIndications: mouth 3 (three) Dermatitis times daily as needed for Itching. Hospital, Clinic, or Other Ordered Dose Route Frequency Start Date End Date Status Facility Administered Medication DOBUTamine (DOBUTREX) 500 mg 460.5 mcg/min IV TITRATE 017 Active in 250mL(Fixed Dose) D5W infusionIndications: Chest pain, unspecified documented as of this encounter (statuses as of 09/10/2019) Active Problems Problem Noted Date Morbid obesity with body mass index of 40.0-49.9 07/18 Morbid obesity with body mass index of 50 or higher DAVIS (obstructive sleep apnea) 08/22/2015 Vulvar lesion 05/30/2015 Bacterial vaginosis 05/23/2015 Postmenopausal status 05/22/2015 Lichen sclerosus 05/22/2015 Postmenopausal atrophic vaginitis 05/22/2015 H/O: hysterectomy 05/22/2015 Mixed incontinence 05/22/2015 Obesity 01/16/2013 Overview: ICD10 Diagnosis Term Customer Acquisition Manager Utility Elevated alkaline phosphatase level 09/08/2012 Dizziness 02/12/2011 Vertigo of central origin 02/12/2011 Gait disturbance 02/12/2011 BPPV (benign paroxysmal positional vertigo) 02/12/2011 Vitamin D deficiency 02/18/2010 HLD (hyperlipidemia) 05/09/2009 Overview: ICD10 Diagnosis Term Customer Acquisition Manager Utility Other malaise and fatigue 02/06/2009 Hirsutism 02/06/2009 Chest pain 11/09/2008 Inflamed seborrheic keratosis 12/08/2006 Anxiety state 12/08/2006 Overview: ICD10 Diagnosis Term Customer Acquisition Manager Utility Esophageal reflux 12/08/2006 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 Other chronic pain 12/08/2006 Overview: Lower back Essential hypertension, benign 12/08/2006 Dizziness and giddiness 12/08/2006 Overview: positional Pain in joint, lower leg 12/08/2006 Overview: Knee problem Diabetes mellitus type 2, uncontrolled, without compli cations 12/08/2006 Overview: ICD10 Diagnosis Term Customer Acquisition Manager Utility documented as of this encounter (statuses as of 09/10/2019) Resolved Problems Problem Noted Date Resolved Date Vaginal lesion 05/22/2015 05/30/2015 documented as of this encounter (statuses as of 09/10/2019) Immunizations Name Administration Dates Next Due Influenza [...] 10/03/2019 Office Visit Dermatology Kolby Rai MD [address] [place] [address]. [place] [phone] 10/05/2019 Office Visit Cardiology Castillo Guerra M D [address] [facility] [address] [place], [place] [address] [phone] 10/06/2019 Office Visit Surgery Yanci Cosme MD [address] [facility] [address] [place] [address] [phone] 12/01/2019 Office Visit Ophthalmology Royce Hernández MD [address] [place] [address] [phone] 12/13/2019 Office Visit Internal Medicine Osiris Miranda MD [address] [place] [address] [address] [place], [place] [address] [phone] 12/23/2019 Office Visit Endocrinology Diabetes & Magnus Mendieta MD Metabolism [address] [facility] [address] [place], [place] [address] [phone] 01/02/2020 Office Visit Otolaryngology Dianne Romero MD [address] [place], [place] [address] Health Maintenance Due Date Last Done Comments COLONOSCOPY 09/06/2003 Medicare Wellness Visit 2018 URINE MICROALBUMIN 02/05/2019 02/05/2018, 04/04/2016, 12/22/2014, Additional history exists HgA1C 10/22/2019 04/22/2019, 12/10/2018, 06/11/2018, Additional history exists FOOT EXAM 04/22/2020 04/22/2019, 02/18/2019, 12/10/2018, Additional history exists INFLUENZA VACCINE (Season 05/09/2020 02/06/2009 Postpo aristeo from Ended) 01/03/2020 (Refu sed) LDL-C 05/09/2020 05/09/2019, 02/05/2018, 04/04/2016, [...] of this encounter Implants Implanted Type Area Solutions Operator Device Shelf Model / Serial Identifier Expiration / Lot Date Lens, Juvencio #[id number] 22.5d - [id number] LENS Left: Eye Juvencio 12/01/2020 [id number] 22.5D / Implanted: Qty: 1 on 06/24/2016 by Liliane Langston MD at [facility] NA / [id number] documented as of this encounter Results Not on filedocumented in this encounter Insurance Payer Benefit Plan Subscriber ID Effective Phone Address Typ e / Group Dates MEDICARE MEDICARE PART xxxxxxxxxxx 2006-Pres 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
[2019-11-01 01:00] LABS: Absolute Lymphocytes (CBC) 2.4 K/uL (0.7-4.9); Basophils % 0.6 % (0-1.3); Hematocrit 38.6 % (36.0-45.0); Lymphocytes % 23.4 % (15.3-44.8); MPV 10.3 fL (7.6-11.3); RBC Red Blood Cell Count 4.13 M/uL (3.86-4.86)
[2019-11-01 01:12] LABS: ALT/SGPT 22 U/L (12-78); AST/SGOT 19 U/L (15-37); Albumin 3.4 g/dL (3.4-5.0); Alkaline Phosphatase 131 U/L (45-117); BUN Blood Urea Nitrogen 22 mg/dL (7-18); Bicarbonate 25 mmol/L (21-32); Bilirubin Direct < 0.1 mg/dL (0-0.2); Bilirubin Total 0.2 mg/dL (0.2-1.0); Glucose Level 235 mg/dL (74-106); Lipase 261 U/L (73-393); Potassium 3.9 mmol/L (3.5-5.1); Protein, Total 7.3 g/dL (6.4-8.2); Sodium Level 140 mmol/L (136-145)
--- NOTE | 2019-11-01 03:24 | ER ---
Nurse's Notes [facility] Name: Liss Ro Age: 64 yrs Sex: Female : 1955 Arrival Date: 10/31/2019 Time: 23:25 Bed 5 Private MD: Diagnosis: Constipation, unspecified;Proctitis Presentation: 10/30 23:27 Chief complaint: EMS states: Constipated x 2 days, hx of constipation; No relief with lp1 Dulcolax, enema at home; complaint of rectal pain, unable to lay flat on back, states "I feel like I can't push it out". Coronavirus screen: Proceed with normal triage. Ebola Screen: No symptoms or risks identified at this time. Initial Sepsis Screen: Does the patient meet any 2 criteria? No. Patient's initial sepsis screen is negative. Does the patient have a suspected source of infection? No. Patient's initial sepsis screen is negative. Risk Assessment: Do you want to hurt yourself or someone else? Patient reports no desire to harm self or others. Onset of symptoms was October 31, 2019. 23:27 Method Of Arrival: EMS: [facility] lp1 23:27 Acuity: MALINI 3 lp1 Historical: - Allergies: 23:32 Sulfa (Sulfonamide Antibiotics); lp1 23:32 tramadol; lp1 23:32 Codeine; lp1 23:32 Morphine; lp1 23:32 Bactrim; lp1 23:32 Flagyl; lp1 - Home Meds: 23:32 amlodipine 10 mg tab 1 tab once daily [Active]; Humalog Sub-Q [Active]; Lantus Sub-Q lp1 [Active]; lisinopril 20 mg Oral tab 1 tab [Active]; - PMHx: 23:32 Anxiety; Diabetes - IDDM; Herniated disc; Hypertension; Positional Vertigo; PTSD; lp1 - PSHx: 23:32 ; Cholecystectomy; lp1 - Immunization history:: Adult Immunizations up to date. - Social history:: Smoking status: Patient denies any tobacco usage or history of. Screenin:32 Abuse screen: Denies threats or abuse. Denies injuries from another. Nutritional lp1 screening: No deficits noted. Tuberculosis screening: No symptoms or risk factors identified. Fall Risk None identified. Assessment: 23:32 General: Appears in no apparent distress. comfortable, Behavior is calm, cooperative, ao appropriate for age. Pain: Complains of pain in buttocks Pain does not radiate. Pain currently is 7 out of 10 on a pain scale. Neuro: Level of Consciousness is awake, alert, obeys commands, Oriented to person, place, time, situation, Appropriate for age Speech is normal, Facial symmetry appears normal. Cardiovascular: Capillary refill < 3 seconds Patient's skin is warm and dry. Respiratory: Airway is patent Respiratory effort is even, unlabored, Respiratory pattern is regular, symmetrical. GI: Bowel sounds present X 4 quads. Abdomen is tender to palpation. GI: Reports constipation. : No signs and/or symptoms were reported regarding the genitourinary system. EENT: No signs and/or symptoms were reported regarding the EENT system. Derm: Skin is intact, Skin is pink, warm \\T\\ dry. Skin temperature is warm. Musculoskeletal: Circulation, motion, and sensation intact. Range of motion: intact in all extremities. 10/31 00:17 Reassessment: Pt ambulated to the bathroom. ao 03:00 Reassessment: Patient appears in no apparent distress at this time. Patient requesting ao to be discharge. 03:31 Reassessment: DC instructions given to patient. Pt agree to fallow up with PCP and GI. ao Provided with 3 prescriptions. Vital Signs: 10/30 23:27 BP 141 / 65; Pulse 115; Resp 18; Temp 97.6(A); Pulse Ox 99% on R/A; Weight 82.1 kg (R); lp1 Height 4 ft. 11 in. (149.86 cm); Pain 7/10; 10/31 01:42 BP 138 / 82; Pulse 106; Resp 18; Pulse Ox 98% ; ao 03:26 BP 126 / 53; Pulse 110; Resp 14; Pulse Ox 98% on R/A; Pain 0/10; ao 10/30 23:27 Body Mass Index 36.56 (82.10 kg, 149.86 cm) lp1 ED Course: 10/30 23:25 Patient arrived in ED. cf2 23:29 Triage completed. lp1 23:29 Arm band placed on. lp1 23:32 Augusto Kingston RN is Primary Nurse. ao 23:35 Patient has correct armband on for positive identification. Pulse ox on. NIBP on. ao 23:38 Sameer Ruiz MD is Attending Physician. [facility] 10/31 00:16 Inserted saline lock: 20 gauge in right antecubital area, using aseptic technique. ao Blood collected. 01:21 CT Abd/Pelvis - IV Contrast Only In Process Unspecified. EDMS 03:23 Malvin Summers MD is Referral Physician. [facility] 03:30 No provider procedures requiring assistance completed. IV discontinued, intact, ao bleeding controlled, No redness/swelling at site. Pressure dressing applied. Administered Medications: No medications were administered Outcome: 03:24 Discharge ordered by . [facility] 03:30 Discharged to home ambulatory. ao 03:30 Condition: stable 03:30 Discharge instructions given to patient, Instructed on discharge instructions, follow up and referral plans. the need for admit, Demonstrated understanding of instructions, follow-up care, medications. 03:42 Patient left the ED. ao Signatures: Dispatcher [employer] EDNC Alexandria Mccurdy RN RN 1 Augusto Kingston RN RN ao Yudy Box cf2 Sameer Ruiz MD MD [facility]
--- NOTE | 2019-11-01 03:25 | EDPHYS ---
Physician Documentation [facility] Name: Liss Ro Age: 64 yrs Sex: Female : 1955 Arrival Date: 10/31/2019 Time: 23:25 Bed 5 Private MD: ED Physician Sameer Ruiz HPI: 10/31 00:59 This 64 yrs old Female presents to ER via EMS with complaints of Constipation. mh7 00:59 The patient presents with abdominal pain in the periumbilical area. constipation. mh7 Onset: The symptoms/episode began/occurred 2 day(s) ago. The symptoms do not radiate. Associated signs and symptoms: Pertinent positives: constipation, Pertinent negatives: nausea, vomiting, and diarrhea, anorexia, blood in stools, chest pain, diarrhea, dysuria, fever, headache, hematuria, nausea, palpitations, shortness of breath, vaginal discharge, vomiting, vomiting blood. The symptoms are described as intermittent, vague, waxing/waning. Modifying factors: The symptoms are alleviated by nothing, the symptoms are aggravated by nothing. Severity of pain: At its worst the pain was mild today, in the emergency department the pain is unchanged. Historical: - Allergies: 10/30 23:32 Sulfa (Sulfonamide Antibiotics); lp1 23:32 tramadol; lp1 23:32 Codeine; lp1 23:32 Morphine; lp1 23:32 Bactrim; lp1 23:32 Flagyl; lp1 - Home Meds: 23:32 amlodipine 10 mg tab 1 tab once daily [Active]; Humalog Sub-Q [Active]; Lantus Sub-Q lp1 [Active]; lisinopril 20 mg Oral tab 1 tab [Active]; - PMHx: 23:32 Anxiety; Diabetes - IDDM; Herniated disc; Hypertension; Positional Vertigo; PTSD; lp1 - PSHx: 23:32 ; Cholecystectomy; lp1 - Immunization history:: Adult Immunizations up to date. - Social history:: Smoking status: Patient denies any tobacco usage or history of. ROS: 10/31 00:59 Constitutional: Negative for fever, chills, and weight loss, Eyes: Negative for injury, mh7 pain, redness, and discharge, ENT: Negative for injury, pain, and discharge, Neck: Negative for injury, pain, and swelling, Cardiovascular: Negative for chest pain, palpitations, and edema, Respiratory: Negative for shortness of breath, cough, wheezing, and pleuritic chest pain, Back: Negative for injury and pain, : Negative for injury, bleeding, discharge, and swelling, MS/Extremity: Negative for injury and deformity, Skin: Negative for injury, rash, and discoloration, Neuro: Negative for headache, weakness, numbness, tingling, and seizure, Psych: Negative for depression, anxiety, suicide ideation, homicidal ideation, and hallucinations, Allergy/Immunology: Negative for hives, rash, and allergies, Endocrine: Negative for neck swelling, polydipsia, polyuria, polyphagia, and marked weight changes, Hematologic/Lymphatic: Negative for swollen nodes, abnormal bleeding, and unusual bruising. Exam: 00:59 Constitutional: This is a well developed, well nourished patient who is awake, alert, mh7 and in no acute distress. Head/Face: Normocephalic, atraumatic. Eyes: Pupils equal round and reactive to light, extra-ocular motions intact. Lids and lashes normal. Conjunctiva and sclera are non-icteric and not injected. Cornea within normal limits. Periorbital areas with no swelling, redness, or edema. Neck: Trachea midline, no thyromegaly or masses palpated, and no cervical lymphadenopathy. Supple, full range of motion without nuchal rigidity, or vertebral point tenderness. No Meningismus. Chest/axilla: Normal chest wall appearance and motion. Nontender with no deformity. No lesions are appreciated. Cardiovascular: Regular rate and rhythm with a normal S1 and S2. No gallops, murmurs, or rubs. Normal PMI, no JVD. No pulse deficits. Respiratory: Lungs have equal breath sounds bilaterally, clear to auscultation and percussion. No rales, rhonchi or wheezes noted. No increased work of breathing, no retractions or nasal flaring. 00:59 Back: No spinal tenderness. No costovertebral tenderness. Full range of motion. Skin: Warm, dry with normal turgor. Normal color with no rashes, no lesions, and no evidence of cellulitis. MS/ Extremity: Pulses equal, no cyanosis. Neurovascular intact. Full, normal range of motion. Neuro: Awake and alert, GCS 15, oriented to person, place, time, and situation. Cranial nerves II-XII grossly intact. Motor strength 5/5 in all extremities. Sensory grossly intact. Cerebellar exam normal. Normal gait. Psych: Awake, alert, with orientation to person, place and time. Behavior, mood, and affect are within normal limits. 00:59 Abdomen/GI: Inspection: abdomen appears normal, obese Bowel sounds: normal, in all quadrants, Palpation: mild abdominal tenderness, in the umbilical area, Rectal exam: rectal tone normal, Stool: brown, hard, hemorrhoid(s), are not appreciated, mass, is not appreciated, swelling, is not appreciated, tenderness, is not appreciated, Indicators: McBurney's point is not tender, Gamboa's sign is negative, Rovsing's sign is negative, Obturator sign is negative, Psoas sign is negative, Liver: no appreciated palpable abnormalities, Hernia: not appreciated. Vital Signs: 10/30 23:27 BP 141 / 65; Pulse 115; Resp 18; Temp 97.6(A); Pulse Ox 99% on R/A; Weight 82.1 kg (R); lp1 Height 4 ft. 11 in. (149.86 cm); Pain 7/10; 10/31 01:42 BP 138 / 82; Pulse 106; Resp 18; Pulse Ox 98% ; ao 03:26 BP 126 / 53; Pulse 110; Resp 14; Pulse Ox 98% on R/A; Pain 0/10; ao 10/30 23:27 Body Mass Index 36.56 (82.10 kg, 149.86 cm) lp1 MDM: 10/30 23:58 Patient medically screened. mh7 10/31 03:16 Differential diagnosis: AAA, non-specific abd pain, Peptic Ulcer Disease, urinary tract mh7 infection, constipation. Data reviewed: vital signs, nurses notes, lab test result(s), CBC, electrolytes, urinalysis, radiologic studies, CT scan. Data interpreted: Pulse oximetry: on room air is 98 %. Interpretation: normal. Counseling: I had a detailed discussion with the patient and/or guardian regarding: the historical points, exam findings, and any diagnostic results supporting the discharge/admit diagnosis, the presence of at least one elevated blood pressure reading (>120/80) during this emergency department visit, lab results, radiology results, the need for outpatient follow up, to return to the emergency department if symptoms worsen or persist or if there are any questions or concerns that arise at home. 03:22 Response to treatment: the patient's symptoms have markedly improved after treatment. [facility] 05:55 Refusal of service: The patient/guardian displays adequate decision making capability [facility] and despite a detailed discussion of alternatives, benefits, risks, and consequences refuses: Medications. ED course: Well appearing, NAD, VSS, no focal neurological deficits. No abdominal pain/tenderness, nausea, vomiting. Tolerating oral intake without difficulty. Discussed all test results and findings with the patient and answered all of her questions. She adamantly requested to be discharged from the ED. She will follow up with her doctor but agreed to return to the ED if worsening of symptoms or other concerns.. 10/31 00:00 Order name: Lipase; Complete Time: [facility] 10/31 00:00 Order name: Basic Metabolic Panel; Complete Time: [facility] 10/31 00:00 Order name: CBC with Diff; Complete Time: [facility] 10/31 00:00 Order name: Hepatic Function; Complete Time: [facility] 10/31 03:09 Order name: CREATININE WHOLE BLOOD; Complete Time: 03:21 EDAZ 10/31 03:13 Order name: Urine Dipstick--Ancillary (enter results) tt3 10/31 00:00 Order name: IV Saline Lock; Complete Time: 00:16 [facility] 10/31 00:00 Order name: Labs collected and sent; Complete Time: 00:16 [facility] 10/31 00:00 Order name: Urine Dipstick-Ancillary (obtain specimen); Complete Time: 03:24 [facility] 10/31 00:00 Order name: CT Abd/Pelvis - IV Contrast Only [facility] Administered Medications: No medications were administered Disposition: 11/01/19 03:24 Discharged to Home. Impression: Constipation, unspecified, Proctitis. - Condition is Stable. - Discharge Instructions: Constipation, Adult, [id number], Proctitis. - Prescriptions for Fleet Enema - insert 120 milliliter by RECTAL route once daily As needed; 5 milliliter. Lactulose 10 gram/15 mL Oral Solution - take 30 milliliter by ORAL route once daily; 300 milliliter. Cipro 500 mg Oral Tablet - take 1 tablet by ORAL route every 12 hours for 7 days; 14 tablet. Dulcolax 10 mg Rectal Suppository - insert 1 suppository by RECTAL route once daily As needed; 5 suppository. - Medication Reconciliation Form, Thank You Letter, Antibiotic Education, Prescription Opioid Use form. - Follow up: Private Physician; When: 1 - 2 days; Reason: Worsening of condition, Recheck today's complaints, Re-evaluation by your physician. Follow up: Malvin Summers MD; When: 1 - 2 days; Reason: Worsening of condition, Recheck today's complaints, Continuance of care. - Problem is an acute exacerbation. - Symptoms have improved. Signatures: Dispatcher [employer] EDMS Alexandria Mccurdy RN RN lp1 Augusto Kingston RN RN Sameer Anderson MD MD mh7 Corrections: (The following items were deleted from the chart) 03:42 03:24 11/01/2019 03:24 Discharged to Home. Impression: Constipation, unspecified; ao Proctitis. Condition is Stable. Forms are Medication Reconciliation Form, Thank You Letter, Antibiotic Education, Prescription Opioid Use. Follow up: Private Physician; When: 1 - 2 days; Reason: Worsening of condition, Recheck today's complaints, Re-evaluation by your physician. Follow up: Malvin Summers; When: 1 - 2 days; Reason: Worsening of condition, Recheck today's complaints, Continuance of care. Problem is an acute exacerbation. Symptoms have improved. mh7
[2019-11-01 03:44] LABS: Urine Blood NEGATIVE (NEG); Urine Glucose TRACE (NEG); Urine Protein NEGATIVE (NEG); Urine Specific Gravity 1.015 (1.005-1.030)
[2019-11-01 03:54] VITALS: TEMP 97.6
[2019-11-01 03:55] VITALS: O2SAT 98
[2019-11-01 03:57] VITALS: BP 126/53
--- NOTE | 2019-11-01 10:15 | RAD REPORT ---
EXAM DESCRIPTION: CT - Abdomen Pelvis W Contrast - 11/01/2019 6:14 am CLINICAL HISTORY: The patient is 64 years old and is Female; CONSTIPATION TECHNIQUE: Axial computed tomography images of the abdomen and pelvis with intravenous contrast. S agittal and coronal reformatted images were created and reviewed. This CT exam was performed using one or more of the following dose reduction techniques: automated exposure control, adjustment of t he mA and/or kV according to patient size, and/or use of iterative reconstruction technique. COMPARISON: No relevant prior studies available. FINDINGS: LUNG BASES: Unremarkable. No mass. No consolidation. ABDOMEN: LIVER: Unremarkable. No mass. GALLBLADDER AND BILE DUCTS: The gallbladder surgically absent. Dilatation of the common bile ilda t is present. PANCREAS: The pancreas is atrophic. SPLEEN: Unremarkable. ADRENALS: Unremarkable. No mass. KIDNEYS AND URETERS: Unremarkable. The kidneys enhance symmetrically. No obstructing renal or ur eteral calculus is seen. No hydronephrosis or hydroureter. No perinephric fluid or stranding. STOMACH AND BOWEL: The stomach is distended with food contents. The small bowel is normal in ila iber. Stool is present throughout the colon. A moderate rectal stool ball is present. Mild inflammato ry stranding in the perirectal and perianal fat is present with suggestion of minimal mucosal thicken ing is noted. PELVIS: APPENDIX: The appendix is normal in caliber without surrounding inflammation. BLADDER: The bladder is incompletely distended. REPRODUCTIVE: The patient is status post hysterectomy. ABDOMEN and PELVIS: INTRAPERITONEAL SPACE: Unremarkable. No free air. No significant fluid collection. BONES/JOINTS: Bilateral pars defects are present at L5 with grade 1 anterolisthesis. Multilevel degenerative change of the spine is noted. SOFT TISSUES: The soft tissues are normal. VASCULATURE: Unremarkable. No abdominal aortic aneurysm. LYMPH NODES: Unremarkable. No enlarged lymph nodes. IMPRESSION: 1. Suggestion of mucosal thickening and inflammatory fat stranding along the rectum an d anal region. Findings may be secondary to proctitis. While no discrete mass is seen, further evalua tion is warranted to exclude underlying lesion. 2. Moderate rectal stool ball. Electronically signed by: Faby Wayne MD 11/01/2019 1:37 AM CDT Due to temporary technical issues with the PACS/Fluency reporting system, reports are being signed by the in house radiologist without review as a courtesy to ensure prompt reporting. The interpreting r adiologist is fully responsible for the content of the report.
== END 2019-11-01 03:42 | disposition home or self-care (01) ==
LOC: ER 23:24
DX: K62.89 Other specified diseases of anus and rectum (principal); I10 Essential (primary) hypertension; E11.9 Type 2 diabetes mellitus without complications; F41.9 Anxiety disorder, unspecified; Z79.4 Long term (current) use of insulin; Z88.1 Allergy status to other antibiotic agents; Z88.5 Allergy status to narcotic agent; Z88.2 Allergy status to sulfonamides; Z88.8 Allergy status to other drugs, medicaments and biological substances
CPT/HCPCS: 85025; 80048; 36415; 82565; 80076; 81003; 83690; 74177; 99284; Q9967

== ENCOUNTER 2019-12-04 20:14 | Emergency (ER) | payer OTHER ==
--- OUTSIDE RECORDS SUMMARY | 2019-12-04 20:16 | XMS REPORT | Continuity of Care Document ---
:1955 Author Organization [facility] t Address [address] [place] [address] Care Team Providers Name Role Phone Jad [...] ID 2019-08-31 2019-08-31 TaraedicMIK Melton [id number] 07:55:30 08:25:30 ne Visit Unique GALICIA [id number] Diana MODI [id number] G[facility] [phone] [facility] 2019-08-25 2019-08-25 Telephone MIK Don [id number] 00:00:00 00:00:00 Tiffanie Oconnor [id number] Esvin [id number] [facility] [id number] [address] 2019-08-24 2019-08-24 TelemedicMIK Lord [id number] 07:57:12 08:12:12 ne Visit [facility] [id number] Cancer [id number] [facility] [phone] [facility] 144 2019-08-05 2019-08-05 Patient Radha [facility] [id number] 00:00:00 00:00:00 Secure Msg Julianna Walker [place] [id number] [place] [id number] [facility] [phone] [facility] 044 Building Results This patient has no known results.
[2019-12-05] MEDS ORDERED: NA CHLORIDE 0.9% 500 ML ONE ×2 (00:05→01:45)
[2019-12-05 00:09] LABS: Absolute Lymphocytes (CBC) 2.4 K/uL (0.7-4.9); Basophils % 0.4 % (0-1.3); Hematocrit 37.5 % (36.0-45.0); Lymphocytes % 21.1 % (15.3-44.8); MPV 9.4 fL (7.6-11.3); RBC Red Blood Cell Count 4.05 M/uL (3.86-4.86)
[2019-12-05 00:20] LABS: Albumin 3.3 g/dL (3.4-5.0); Bilirubin Direct 0.3 mg/dL (0-0.2); Bilirubin Total 0.9 mg/dL (0.2-1.0); Potassium 4.1 mmol/L (3.5-5.1); Protein, Total 8.3 g/dL (6.4-8.2)
--- NOTE | 2019-12-05 02:26 | ER ---
Nurse's Notes [facility] Name: Liss Ro Age: 64 yrs Sex: Female : 1955 Arrival Date: 12/04/2019 Time: 20:27 Bed 7 Private MD: Diagnosis: Headache;Low back pain;Lower abdominal pain, unspecified;Diabetes mellitus due to underlying condition with hyperglycemia Presentation: 12/03 20:28 Chief complaint: Patient states: Right sided posterior ISIDRO for 2 days. States she is ll1 taking Cipro for colon infection. Stopped last dose today, states her urine was dark. She thought it was damaging her kidneys. + constipation. Coronavirus screen: Client denies travel out of the [place] in the last 14 days. At this time, the client does not indicate any symptoms associated with coronavirus-19. Ebola Screen: Patient denies travel to an Ebola-affected area in the 21 days before illness onset. Initial Sepsis Screen: Does the patient meet any 2 criteria? HR > 90 bpm. Risk Assessment: Do you want to hurt yourself or someone else? Patient reports no desire to harm self or others. Onset of symptoms was December 03, 2019. 20:28 Method Of Arrival: Wheelchair ll1 20:28 Acuity: MALINI 3 ll1 12/04 00:14 Initial Sepsis Screen: Does the patient have a suspected source of infection? No. rv Patient's initial sepsis screen is negative. Triage Assessment: 00:14 Headache History: Denies prior headaches. General: Appears uncomfortable. General: rv Behavior is agitated. Pain: Complains of pain in scalp and back Pain currently is 8 out of 10 on a pain scale. Pain began gradually, Also complains of no other associated symptoms. Historical: - Allergies: 12/03 20:32 Bactrim; ll1 20:32 Codeine; ll1 20:32 Flagyl; ll1 20:32 Morphine; ll1 20:32 Sulfa (Sulfonamide Antibiotics); ll1 20:32 tramadol; ll1 - PMHx: 20:32 Anxiety; Diabetes - IDDM; Herniated disc; Hypertension; Positional Vertigo; PTSD; ll1 - PSHx: 20:32 ; Cholecystectomy; ll1 - Immunization history:: Flu vaccine is not up to date. - Social history:: Smoking status: Patient denies any tobacco usage or history of. Patient/guardian denies using alcohol, street drugs. Screenin/03 00:14 Abuse screen: Denies threats or abuse. Denies injuries from another. Nutritional rv screening: No deficits noted. Tuberculosis screening: No symptoms or risk factors identified. Fall Risk None identified. Assessment: 00:13 General: Appears uncomfortable, Behavior is agitated. Pain: Complains of pain in scalp rv and back. Neuro: Level of Consciousness is awake, alert, obeys commands, Oriented to person, place, time, situation. Cardiovascular: Patient's skin is warm and dry. Respiratory: Airway is patent. Derm: Skin is intact. 02:43 Reassessment: Patient and/or family updated on plan of care and expected duration. Pain rv level reassessed. Patient is alert, oriented x 3, equal unlabored respirations, skin warm/dry/pink. refused the fentanyl dose. Neuro: Level of Consciousness is awake, alert, obeys commands, Oriented to person, place, time, situation. Vital Signs: 12/03 20:28 BP 133 / 59; Pulse 116; Resp 18; Temp 97.9; Pulse Ox 97% ; Pain 10/10; ll1 12/04 00:15 BP 150 / 66; Pulse 95; Resp 17; Pulse Ox 97% on R/A; rv 01:00 BP 147 / 68; Pulse 89; Resp 18; Pulse Ox 97% on R/A; rv 02:30 BP 148 / 66; Pulse 86; Resp 16; Temp 98; Pulse Ox 99% on R/A; rv ED Course: 12/03 20:27 Patient arrived in ED. ag3 20:31 Triage completed. ll1 20:34 Arm band placed on Patient notified of wait time. ll1 23:26 Lon Cyr PA is PHCP. cp 23:26 Kristian Singh MD is Attending Physician. cp 23:38 Reji Le RN is Primary Nurse. rv 12/04 00:06 Initial lab(s) drawn, by me, sent to lab. Inserted saline lock: 18 gauge in left rv antecubital area, using aseptic technique. Blood collected. 00:14 Patient has correct armband on for positive identification. Pulse ox on. NIBP on. rv 00:15 No provider procedures requiring assistance completed. rv 01:39 CT Head Brain wo Cont In Process Unspecified. EDMS 01:39 CT Abd/Pelvis - IV Contrast Only In Process Unspecified. EDMS 02:44 IV discontinued, intact, bleeding controlled, No redness/swelling at site. Pressure rv dressing applied. Administered Medications: 00:06 Drug: NS 0.9% 500 ml Route: IV; Rate: bolus; Site: left antecubital; rv 02:44 Follow up: IV Status: Completed infusion; IV Intake: 500ml rv 02:08 Drug: NS 0.9% 500 ml Route: IV; Rate: bolus; Site: left antecubital; rv 02:44 Follow up: IV Status: Completed infusion; IV Intake: 500ml rv 02:45 Drug: TORadol - Ketorolac 15 mg Route: IVP; Site: left antecubital; rv 02:46 Follow up: Response: Medication administered at discharge. rv 02:45 Drug: Flexeril 10 mg Route: PO; rv 02:46 Follow up: Response: Medication administered at discharge. rv 02:45 Drug: Augmentin 875 mg Route: PO; rv 02:45 Follow up: Response: Medication administered at discharge. rv 02:51 Not Given (Patient Refused): fentaNYL (PF) 25 mcg IVP once; RASS on ADMIN: Combtv4, rv Very Agttd3, Agttd2, Rstlss1, AlertClm0, Drwsy-1, Lt Sdtn-2, Mod Sdtn-3, Dp Sdtn-4, UnArsble-5 Intake: 02:44 IV: 500ml; Total: 500ml. rv 02:44 IV: 500ml; Total: 1000ml. rv Outcome: 02:26 Discharge ordered by MD. cp 02:44 Discharged to home ambulatory. rv 02:44 Condition: good 02:44 Discharge instructions given to patient, Instructed on discharge instructions, follow up and referral plans. medication usage, Demonstrated understanding of instructions, follow-up care, medications, Prescriptions given X 2. 03:03 Patient left the ED. rv Signatures: Dispatcher [employer] EDMS Lon Cyr PA PA cp Vicente, Ronaldo RN RN rv Arcelia De León ag3 Joey Lopez RN RN ll1
--- NOTE | 2019-12-05 02:27 | EDPHYS ---
Physician Documentation [facility] Name: Liss Ro Age: 64 yrs Sex: Female : 1955 Arrival Date: 12/04/2019 Time: 20:27 Bed 7 Private MD: ED Physician Kristian Singh HPI: 12/03 23:40 This 64 yrs old Female presents to ER via Wheelchair with complaints of cp Headache. 23:40 The patient complains of pain to the posterior aspect of head. The patient describes cp the headache as aching. 23:40 Onset: The symptoms/episode began/occurred 2 day(s) ago. cp 23:40 Associated signs and symptoms: Pertinent positives: neck and back pain, Pertinent cp negatives: neck stiffness, chest pain. 23:40 Severity of symptoms: in the emergency department the pain a " 8" out of "10". cp 23:40 Patient reports going to [place] and being diagnosed with colitis. Patient reports she cp was prescribed Cipro antibiotic but stopped taking medication after noticing dark colored urine as she believed medication was damaging kidneys. Historical: - Allergies: 20:32 Bactrim; ll1 20:32 Codeine; ll1 20:32 Flagyl; ll1 20:32 Morphine; ll1 20:32 Sulfa (Sulfonamide Antibiotics); ll1 20:32 tramadol; ll1 - PMHx: 20:32 Anxiety; Diabetes - IDDM; Herniated disc; Hypertension; Positional Vertigo; PTSD; ll1 - PSHx: 20:32 ; Cholecystectomy; ll1 - Immunization history:: Flu vaccine is not up to date. - Social history:: Smoking status: Patient denies any tobacco usage or history of. Patient/guardian denies using alcohol, street drugs. ROS: 23:45 Constitutional: Negative for body aches, chills, fever, poor PO intake. cp 23:45 Eyes: Negative for injury, pain, redness, and discharge. cp 23:45 ENT: Negative for ear pain, sore throat, difficulty swallowing, difficulty handling cp secretions. 23:45 Neck: Positive for pain with movement, pain at rest, tenderness, Negative for injury or acute deformity. 23:45 Cardiovascular: Negative for chest pain, edema, palpitations. 23:45 Respiratory: Negative for cough, shortness of breath, wheezing. 23:45 Abdomen/GI: Positive for abdominal pain, constipation, Negative for nausea, vomiting, and diarrhea, black/tarry stool, rectal bleeding. 23:45 Back: Positive for pain at rest, pain with movement, of the left subscapular area, right subscapular area and low back area, Negative for injury or acute deformity. 23:45 : Negative for urinary symptoms. 23:45 Neuro: Positive for headache, Negative for altered mental status, numbness, tingling, weakness. 23:45 All other systems are negative. Exam: 23:55 Head/Face: Normocephalic, atraumatic. cp 23:55 Constitutional: The patient appears in no acute distress, alert, awake, non-diaphoretic, non-toxic, well developed, well nourished, obese. 23:55 Eyes: Periorbital structures: appear normal, Pupils: equal, round, and reactive to cp light and accomodation, Extraocular movements: intact throughout, Conjunctiva: normal, no exudate, no injection, Sclera: no appreciated abnormality, Lids and lashes: appear normal, bilaterally. 23:55 ENT: External ear(s): are unremarkable, Nose: is normal, Mouth: is normal, Posterior pharynx: Airway: no evidence of obstruction, patent. 23:55 Neck: ROM/movement: pain, that is mild, with any movement, limited range of motion, is not appreciated, Meningeal signs: are not present, nuchal rigidity, is not appreciated, Lymph nodes: no appreciated lymphadenopathy. 23:55 Chest/axilla: Inspection: normal, Palpation: is normal, no crepitus, no tenderness. 23:55 Cardiovascular: Rate: tachycardic, Rhythm: regular, Edema: is not appreciated, JVD: is not appreciated. 23:55 Respiratory: the patient does not display signs of respiratory distress, Respirations: normal, no use of accessory muscles, no retractions, labored breathing, is not present, Breath sounds: are clear throughout, no decreased breath sounds, no stridor, no wheezing. 23:55 Abdomen/GI: Inspection: obese Bowel sounds: active, all quadrants, Palpation: soft, in all quadrants, mild abdominal tenderness, in the right lower quadrant and left lower quadrant, rebound tenderness, is not appreciated, voluntary guarding, is not appreciated, involuntary guarding, is not appreciated. 23:55 Back: pain, that is mild, of the left subscapular area, right subscapular area and low back area, ROM is normal. 23:55 Skin: no rash present. 23:55 Neuro: Orientation: to person, place \\T\\ time. Mentation: is normal, Cerebellar function: is grossly normal, Motor: moves all fours, strength is normal, Sensation: is normal. Vital Signs: 20:28 BP 133 / 59; Pulse 116; Resp 18; Temp 97.9; Pulse Ox 97% ; Pain 10/10; ll1 12/04 00:15 BP 150 / 66; Pulse 95; Resp 17; Pulse Ox 97% on R/A; rv 01:00 BP 147 / 68; Pulse 89; Resp 18; Pulse Ox 97% on R/A; rv 02:30 BP 148 / 66; Pulse 86; Resp 16; Temp 98; Pulse Ox 99% on R/A; rv MDM: 12/03 23:28 Patient medically screened. 12/04 00:00 Differential diagnosis: cluster headache, hyponatremia, meningitis, cp meningoencephalitis, migraine, subarachnoid bleed, subdural hematoma, tension headache, hyperglycemia, DKA. 02:25 Data reviewed: vital signs, nurses notes, lab test result(s), radiologic studies, CT cp scan, and as a result, I will discharge patient. 02:25 Counseling: I had a detailed discussion with the patient and/or guardian regarding: the cp historical points, exam findings, and any diagnostic results supporting the discharge/admit diagnosis, lab results, radiology results, the need for outpatient follow up, a family practitioner, to return to the emergency department if symptoms worsen or persist or if there are any questions or concerns that arise at home. 12/03 23:39 Order name: Basic Metabolic Panel; Complete Time: 00:30 cp 12/04 00:30 Interpretation: Normal except: GLUC 234; GFR 71. cp 12/03 23:39 Order name: CBC with Diff; Complete Time: 00:30 cp 12/04 00:30 Interpretation: Normal except: WBC 11.3; NEUT A 8.1. cp 12/03 23:39 Order name: Hepatic Function; Complete Time: 00:30 cp 12/04 00:30 Interpretation: Normal except: BILID 0.3; TP 8.3; ALB 3.3; GLOB 5.0; A/G 0.7. cp 12/03 23:39 Order name: Lipase; Complete Time: 00:30 cp 12/04 02:15 Order name: Urine Dipstick--Ancillary (enter results) tt3 12/04 00:32 Order name: CT Head Brain wo Cont cp 12/04 00:32 Order name: CT Abd/Pelvis - IV Contrast Only cp 12/03 23:39 Order name: IV Saline Lock; Complete Time: 00:06 cp 12/03 23:39 Order name: Labs collected and sent; Complete Time: 00:06 cp 12/03 23:39 Order name: Urine Dipstick-Ancillary (obtain specimen); Complete Time: 02:45 cp Administered Medications: 00:06 Drug: NS 0.9% 500 ml Route: IV; Rate: bolus; Site: left antecubital; rv 02:44 Follow up: IV Status: Completed infusion; IV Intake: 500ml rv 02:08 Drug: NS 0.9% 500 ml Route: IV; Rate: bolus; Site: left antecubital; rv 02:44 Follow up: IV Status: Completed infusion; IV Intake: 500ml rv 02:45 Drug: TORadol - Ketorolac 15 mg Route: IVP; Site: left antecubital; rv 02:46 Follow up: Response: Medication administered at discharge. rv 02:45 Drug: Flexeril 10 mg Route: PO; rv 02:46 Follow up: Response: Medication administered at discharge. rv 02:45 Drug: Augmentin 875 mg Route: PO; rv 02:45 Follow up: Response: Medication administered at discharge. rv 02:51 Not Given (Patient Refused): fentaNYL (PF) 25 mcg IVP once; RASS on ADMIN: Combtv4, rv Very Agttd3, Agttd2, Rstlss1, AlertClm0, Drwsy-1, Lt Sdtn-2, Mod Sdtn-3, Dp Sdtn-4, UnArsble-5 Disposition: 04:26 Co-signature as Attending Physician, Kristian Singh MD I agree with the assessment and tw4 plan of care. Disposition: 12/05/19 02:26 Discharged to Home. Impression: Headache, Low back pain, Lower abdominal pain, unspecified, Diabetes mellitus due to underlying condition with hyperglycemia. - Condition is Stable. - Discharge Instructions: Abdominal Pain, Adult, Back Pain, Adult, General Headache Without Cause, Blood Glucose Monitoring, Adult, Diabetes Mellitus and Food. - Prescriptions for Augmentin 875- 125 mg Oral Tablet - take 1 tablet by ORAL route every 12 hours for 10 days; 20 tablet. Cyclobenzaprine 10 mg Oral Tablet - take 1 tablet by ORAL route every 8 hours As needed; 30 tablet. - Medication Reconciliation Form, Thank You Letter, Antibiotic Education, Prescription Opioid Use form. - Follow up: Private Physician; When: 1 - 2 days; Reason: Recheck today's complaints. - Problem is new. - Symptoms have improved. Signatures: Dispatcher [employer] EDMS Klarissa, KATELIN Forrest cp, Terrence, MD MD tw4 Reji Le RN RN rv Joey Lopez RN RN ll1 Corrections: (The following items were deleted from the chart) 00:30 00:30 Normal except: WBC 11.3. cp cp 02:28 02:26 12/05/2019 02:26 Discharged to Home. Impression: Headache; Low back pain; Lower cp abdominal pain, unspecified. Condition is Stable. Forms are Medication Reconciliation Form, Thank You Letter, Antibiotic Education, Prescription Opioid Use. Follow up: Private Physician; When: 1 - 2 days; Reason: Recheck today's complaints. Problem is new. Symptoms have improved. cp 03:03 02:28 12/05/2019 02:26 Discharged to Home. Impression: Headache; Low back pain; Lower rv abdominal pain, unspecified; Diabetes mellitus due to underlying condition with hyperglycemia. Condition is Stable. Discharge Instructions: Abdominal Pain, Adult, Back Pain, Adult, General Headache Without Cause. Prescriptions for Augmentin 875-125 mg Oral Tablet - take 1 tablet by ORAL route every 12 hours for 10 days; 20 tablet, Cyclobenzaprine 10 mg Oral Tablet - take 1 tablet by ORAL route every 8 hours As needed; 30 tablet. and Forms are Medication Reconciliation Form, Thank You Letter, Antibiotic Education, Prescription Opioid Use. Follow up: Private Physician; When: 1 - 2 days; Reason: Recheck today's complaints. Problem is new. Symptoms have improved. cp 16:39 16:35 Constitutional: The patient appears in no acute distress, alert, awake, cp non-diaphoretic, non-toxic, well developed, well nourished, obese, cp 16:39 16:35 Head/Face: Normocephalic, atraumatic. cp cp
[2019-12-05] MEDS ORDERED: CYCLOBENZAPRINE 10 MG TAB ONE (02:43)
[2019-12-05] MEDS ORDERED: AMOX/K CLAV 875 MG TAB ONE (02:44)
[2019-12-05] MEDS ORDERED: KETOROLAC 30 MG/ML INJ ONE (02:44)
[2019-12-05 02:46] LABS: Urine Blood NEGATIVE (NEG); Urine Glucose TRACE (NEG); Urine Protein NEGATIVE (NEG)
[2019-12-05 03:13] VITALS: BP 148/66; TEMP 98; O2SAT 99
--- NOTE | 2019-12-05 10:25 | RAD REPORT ---
EXAM DESCRIPTION: CT - Head Brain Wo Cont - 12/05/2019 3:33 am CLINICAL HISTORY: HEADACHE COMPARISON: None. TECHNIQUE: Head/brain axial images acquired without contrast. Coronal and sagittal reformats created . Exam performed according to departmental dose-optimization program which includes automated exposur e control, adjustment of mA and/or kV according to patient size, and/or use of iterative reconstructi on technique. FINDINGS: No midline shift, mass effect, intracranial hemorrhage, or hydrocephalus. Brain parenchyma unremarkable. Calcified atherosclerotic intracranial internal carotid and vertebral arteries. Paranasal sinuses and mastoid air cells clear. No skull fracture or significant skull lesion. IMPRESSION: Unremarkable CT head without contrast. Electronically signed by: Rivas Carreon MD 12/05/2019 1:54 AM CDT Due to temporary technical issues with the PACS/Fluency reporting system, reports are being signed by the in house radiologist without review as a courtesy to ensure prompt reporting. The interpreting r adiologist is fully responsible for the content of the report.
--- NOTE | 2019-12-05 10:26 | RAD REPORT ---
EXAM DESCRIPTION: CT - Abdomen Pelvis W Contrast - 12/05/2019 3:34 am CLINICAL HISTORY: Back pain; Abd pain TECHNIQUE: Contiguous axial images obtained through the abdomen and pelvis following the uneventful administration of IV contrast. Coronal and sagittal reformatted images were provided. This exam was performed according to our departmental dose-optimization program, which includes autom ated exposure control, adjustment of the mA and/or kV according to patient size and/or use of iterati ve reconstruction technique. COMPARISON: 11/01/2019 FINDINGS: Lung bases: Clear Liver: Unremarkable Gallbladder and biliary system: Prior cholecystectomy. Intrahepatic and again demonstrated. The commo n duct measures up to 11 mm in maximum diameter. The lung mild pancreatic parenchymal atrophy. Pancreas: Unremarkable Spleen: Unremarkable Adrenals: Unremarkable Kidneys: Normal renal cortical enhancement. Stable subcentimeter hypodensities bilaterally which are too small to characterize. No calculi. No hydronephrosis. Bowel: Air-fluid levels within the mid to distal large bowel. The rectum appears somewhat thickened, similar to the prior. No obstruction. Appendix: Normal caliber appendix. No findings to suggest acute appendicitis. Urinary bladder: Unremarkable Reproductive: There has been a hysterectomy. No adnexal cysts or masses are identified. Lymph nodes: No pathologically enlarged lymph nodes. Peritoneum: No focal fluid collection. No free air. Vessels: Mild atherosclerotic disease. No abdominal aortic aneurysm. Abdominal wall: Unremarkable Bones: Multilevel spondylosis. No acute fracture. 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 IMPRESSION: 1. Persistent findings which may represent mild nonspecific proctitis. Air-fluid level s within the large bowel which can be seen in the setting of diarrhea. 2. Other findings as above. Electronically signed by: Jimy Salmeron MD 12/05/2019 2:02 AM CDT Due to temporary technical issues with the PACS/Fluency reporting system, reports are being signed by the in house radiologist without review as a courtesy to ensure prompt reporting. The interpreting r adiologist is fully responsible for the content of the report.
== END 2019-12-05 03:03 | disposition home or self-care (01) ==
LOC: ER 20:14
DX: M54.5 Low back pain (principal); R10.30 Lower abdominal pain, unspecified; E11.65 Type 2 diabetes mellitus with hyperglycemia; I10 Essential (primary) hypertension; Z88.1 Allergy status to other antibiotic agents; Z88.2 Allergy status to sulfonamides; Z88.5 Allergy status to narcotic agent; Z88.6 Allergy status to analgesic agent
CPT/HCPCS: 85025; 80048; 36415; 80076; 81003; 83690; 70450; 74177; Q9967; J7040; 96361; 96374; 99284

== ENCOUNTER 2022-01-08 16:57 | Emergency (ER) | payer OTHER ==
--- OUTSIDE RECORDS SUMMARY | 2022-01-08 17:01 | XMS REPORT | Continuity of Care Document ---
:1955 Author Organization [facility] t Address [address] [place] [address] Care Team Providers Name Role Phone Osiris Miranda MD Primary Care Physician [phone] Osiris Miranda MD Attending Clinician [phone] Charlie BANKS, Castillo Attending Clinician Veronica BANKS, Magnus York Attending Clinician Doctor Unassigned, [place] Attending Clinician Unavailable Payers Payer Name Policy Type Policy Number Effective Date Expiration Date S ource Problems Condition Condition Condition Status Onset Resolution Last Treating Co mments Source Name Details Category Date Date Treatment Clinician Date Obesity Obesity Disease Active Univers (BMI (BMI 4-28 ity of 30-39.9) 30-39.9) 00:00: [address] DAVIS DAVIS Disease Active Univers (obstructi (obstructi 4-20 it y of ve sleep ve sleep 00:00: [place] apnea) apnea) [facility] Vulvar Vulvar Disease Active Univers lesion lesion 1-27 ity of 00:00: [address] Lichen Lichen Disease Active Univers sclerosus sclerosus 1-19 ity of 00:00: [address] Postmenopa Postmenopa Disease Active U nivers usal usal 1-19 ity of status status 00:00: [place] [facility] Postmenopa Postmenopa Disease Active U nivers usal usal 19 ity of atrophic atrophic 00:00: [place] vaginitis vaginitis 00 Medi ila Branch H/O: H/O: Disease Active Univers hysterecto hysterecto 19 it y of my my 00:00: [place] 00 Medical Branch Mixed Mixed Disease Active Univers incontinen incontinen 05-22 it y of ce ce 00:00: [place] [facility] Obesity Obesity Disease Active Overview: Univ ers 9-15 Formattin ity of 00:00: g of this note Medical might be Branch different from the original. ICD10 Diagnosis Term Tele Marketing Executive Utility Elevated Elevated Disease Active Unive rs alkaline alkaline 5-08 ity of phosphatas phosphatas 00:[place] e level e level 00 Medical Branch Dizziness Dizziness Disease Active 2010-05 Uni vers 0-12 ity of 00:00: [place] 00 Medical Branch Vertigo of Vertigo of Disease Active 2010-05 U nivers central central 0-12 ity of origin origin 00:00: [place] [facility] Gait Gait Disease Active 2010-05 Univers disturbanc disturbanc 0-12 it y of e e 00:00: [place] [facility] BPPV BPPV Disease Active 2010-05 Univers (benign (benign 0-12 ity of paroxysmal paroxysmal 00:[place] positional positional 00 Me dical vertigo) vertigo) Branch Vitamin D Vitamin D Disease Active 2009-05 Uni vers deficiency deficiency 0-18 it y of 00:00: [place] 00 Medical Branch HLD HLD Disease Active Overview: Univer s (hyperlipi (hyperlipi 106 Formattin ity of demia) demia) 00:00: g of this note Medical might be Branch different from the original. ICD10 Diagnosis Term Tele Marketing Executive Utility Other Other Disease Active 2008-05 Univers malaise malaise 0-06 ity of and and 00:00: [place] fatigue fatigue Medical Branch Hirsutism Hirsutism Disease Active 2008-05 Uni vers 0-06 ity of 00:00: [place] 00 Medical Branch Anxiety Anxiety Disease Active Overview: Univ ers state state 8-07 Formattin ity of 00:00: g of this note Medical might be Branch different from the original. ICD10 Diagnosis Term Tele Marketing Executive Utility Esophageal Esophageal Disease Active U nivers reflux reflux 12-08 ity of 00:00: [place] 00 Medical Branch Chronic Chronic Disease Active Univers depressive depressive 12-08 it y of personalit personalit 00:00[place] disorder y disorder 00 Me dical Branch Other Other Disease Active Overview: Univer s chronic chronic 12-08 Formattin ity o f pain pain 00:00: g of this [place] 00 note Medical might be Branch different from the original. Lower back Essential Essential Disease Active Uni vers hypertensi hypertensi 12-08 it y of on, benign on, benign 00:00: [place] 00 [place] Pain in Pain in Disease Active Overview: Univ ers joint, joint, 12-08 Formattin ity of lower leg lower leg 00:00: g of this [place] 00 note Medical might be Branch different from the original. Knee problem Diabetes Diabetes Disease Active Overview: Un jeannette mellitus mellitus 12-08 Formattin ity of type 2, type 2, 00:00: g of this [place] uncontroll uncontroll 00 note Me dical ed, ed, might be Branch without without different complicati complicati from the ons ons original. ICD10 Diagnosis Term Tele Marketing Executive Utility Type 2 Type 2 Disease Active Univers diabetes diabetes 12-08 ity of mellitus, mellitus, 00:00[place] with with 00 Medical long-term long-term Bran ch current current use of use of insulin insulin Arthritis Arthritis Disease Active Uni vers ity of [facility] Allergies, Adverse Reactions, Alerts Allergy Allergy Status Severity Reaction(s) Onset Inactive Treating Comm ents Source Name Type Date Date Clinician Amoxicil Propensi Active Unknown - Blurry Uni vers alondra ty to See comments 7-29 vision ity of adverse 00:00: [place] reaction 00 Medical s Branch Morphine Propensi Active Anxiety Unive rs ty to 8-05 ity of adverse 00:00: [place] reaction 00 Medical s Branch Tramadol Propensi Active Anxiety Pt felt Univ ers ty to 2-21 "weird" ity of adverse 00:00: [place] reaction 00 Medical s Branch Metronid Propensi Active Other - See Throat U nivers azole ty to comments 1-21 swelling ity of adverse 00:00: [place] reaction 00 Medical s Branch Prometha Drug Active Nausea Univers zine Hcl Intolera and/or 05-05 ity of nce Vomiting 00:00: [place] 00 [facility] Branch Sulfamet Propensi Active Unknown - Uni vers hoxazole ty to See comments 12-08 it y of -Trimeth adverse 00:00: [place] oprim reaction 00 Medical s Branch Codeine Propensi Active Unknown - Patient Uni vers ty to See comments 12-08 states it i ty of adverse 00:00: makes her [place] reaction 00 feel Medical s worse, Branch pain increases Social History Social Habit Start Date Stop Date Quantity Comments Source Exposure to 2021-11-18 2021-11-28 Not sure [facility] SARS-CoV-2 00:00:00 08:37:00 [facility] (event) [place] Alcohol intake 2021-09-26 2021-09-26 0 /d [facility] 00:00:00 00:00:00 [facility] Tobacco use and 2011-12-15 2011-12-15 Smokeless tobacco Un iversity of exposure 00:00:00 00:00:00 non-user [facility] Sex [birth year] At [birth year] Universit y of 00:00:00 00:00:00 [facility] Smoking Status Start Date Stop Date Source Never smoked tobacco [facility] Medications Ordered Filled Start Stop Current Ordering Indication Dosage Frequency Signature Comments Components Source Medication Medication Date Date Medication? Clinician (SIG) Name Name leeannicone Yes Take by Uni vers (GAS-X 7-14 mouth. ity of ORAL) 15:37: [place] [facility] simethicone Yes Take by Uni vers (GAS-X 7-14 mouth. ity of ORAL) 15:37: [place] [facility] simethicone Yes Take by Uni vers (GAS-X 7-14 mouth. ity of ORAL) 15:37: [place] [facility] polyethylen Yes Take by Uni vers e glycol 7-14 mouth. ity of 3350 15:37: [place] (MIRALAX 02 Medical ORAL) Branch polyethylen Yes Take by Uni vers e glycol 7-14 mouth. ity of 3350 15:37: [place] (MIRALAX 02 Medical ORAL) Branch polyethylen 0 Yes Take by Uni vers e glycol 7-14 mouth. ity of 3350 15:37: [place] (MIRALAX 02 Medical ORAL) Branch famotidine 2021-0 Yes [id number] 40mg Take 1 Univers 40 mg 7-14 tablet by ity of tablet 00:00: mouth in [place] 00 the Medical morning. Branch Get over the counter if not available omeprazole 2021-0 Yes [id number] 40mg Take 1 Univers 40 mg 7-14 capsule by ity of capsule 00:00: mouth in [place] 00 the Medical morning. Branch dicyclomine 0 Yes [id number] 10mg Take 1 Univers 10 mg 7-14 capsule by ity of capsule 00:00: mouth 2 [place] 00 (two) Medical times Branch daily as needed for Other (abdominal pain). Take 10 mg by mouth 2 (two) times daily as needed. hydrOXYzine 2021-0 Yes [id number] 25mg Take 1 Univers 25 mg 7-14 tablet by ity of tablet 00:00: mouth 3 [place] 00 (three) Medical times Branch daily as needed for Itching. albuterol 0 Yes [id number] INHALE 2 Univers 90 7-14 PUFFS BY ity of mcg/actuati 00:00: MOUTH [place] on inhaler 00 EVERY 6 Medica l HOURS Branch NEEDED FOR WHEEZING FOR SHORTNESS OF BREATH DULoxetine 2021-0 Yes [id number] TAKE 1 Un jeannette 30 mg 7-14 CAPSULE BY ity of capsule 00:00: MOUTH ONCE [place] 00 DAILY FOR Medical ANXIETY Branch famotidine 2021-0 Yes [id number] 40mg Take 1 Univers 40 mg 7-14 tablet by ity of tablet 00:00: mouth in [place] 00 the Medical morning. Branch Get over the counter if not available omeprazole 2021-0 Yes [id number] 40mg Take 1 Univers 40 mg 7-14 capsule by ity of capsule 00:00: mouth in [place] 00 the Medical morning. Branch dicyclomine 2021-0 Yes [id number] 10mg Take 1 Univers 10 mg 7-14 capsule by ity of capsule 00:00: mouth 2 [place] 00 (two) Medical times Branch daily as needed for Other (abdominal pain). Take 10 mg by mouth 2 (two) times daily as needed. hydrOXYzine 2022-0 Yes [id number] 25mg Take 1 Univers 25 mg 7-14 tablet by ity of tablet 00:00: mouth 3 [place] 00 (three) Medical times Branch daily as needed for Itching. albuterol Yes [id number] INHALE 2 Univers 90 7-14 PUFFS BY ity of mcg/actuati 00:00: MOUTH [place] on inhaler 00 EVERY 6 Medica l HOURS Branch NEEDED FOR WHEEZING FOR SHORTNESS OF BREATH DULoxetine Yes [id number] TAKE 1 Un jeannette 30 mg 7-14 CAPSULE BY ity of capsule 00:00: MOUTH ONCE [place] 00 DAILY FOR Medical ANXIETY Branch famotidine Yes [id number] 40mg Take 1 Univers 40 mg 7-14 tablet by ity of tablet 00:00: mouth in [place] 00 the Medical morning. Branch Get over the counter if not available omeprazole Yes [id number] 40mg Take 1 Univers 40 mg 7-14 capsule by ity of capsule 00:00: mouth in [place] 00 the Medical morning. Branch dicyclomine Yes [id number] 10mg Take 1 Univers 10 mg 7-14 capsule by ity of capsule 00:00: mouth 2 [place] 00 (two) Medical times Branch daily as needed for Other (abdominal pain). Take 10 mg by mouth 2 (two) times daily as needed. hydrOXYzine Yes [id number] 25mg Take 1 Univers 25 mg 7-14 tablet by ity of tablet 00:00: mouth 3 [place] 00 (three) Medical times Branch daily as needed for Itching. albuterol Yes [id number] INHALE 2 Univers 90 7-14 PUFFS BY ity of mcg/actuati 00:00: MOUTH [place] on inhaler 00 EVERY 6 Medica l HOURS Branch NEEDED FOR WHEEZING FOR SHORTNESS OF BREATH DULoxetine Yes [id number] TAKE 1 Un jeannette 30 mg 7-14 CAPSULE BY ity of capsule 00:00: MOUTH ONCE [place] 00 DAILY FOR Medical ANXIETY Branch LANTUS Yes [id number] INJECT 14 Un jeannette SOLOSTAR 7-03 UNITS ity of U-100 00:00: SUBCUTANEO [place] INSULIN 100 00 USLY ONCE Med ical unit/mL (3 DAILY Branch mL) injection LANTUS 2022-0 Yes [id number] INJECT 14 Un jeannette SOLOSTAR 7-03 UNITS ity of U-100 00:00: SUBCUTANEO [place] INSULIN 100 00 USLY ONCE Med ical unit/mL (3 DAILY Branch mL) injection LANTUS 2021-0 Yes [id number] INJECT 14 Un jeannette SOLOSTAR 7-03 UNITS ity of U-100 00:00: [facility] [place] INSULIN 100 00 USLY ONCE Med ical unit/mL (3 DAILY Branch mL) injection ergocalcife 2021-0 Yes [id number] Take 1 Univers rol, 6-23 capsule by ity of vitamin d2, 00:00: mouth [place] (VITAMIN 00 weekly. Medical D2) 1,250 Branch mcg (50,000 unit) capsule ergocalcife 2021-0 Yes [id number] Take 1 Univers rol, 6-23 capsule by ity of vitamin d2, 00:00: mouth [place] (VITAMIN 00 weekly. Medical D2) 1,250 Branch mcg (50,000 unit) capsule ergocalcife 2021-0 Yes [id number] Take 1 Univers rol, 6-23 capsule by ity of vitamin d2, 00:00: mouth [place] (VITAMIN 00 weekly. Medical D2) 1,250 Branch mcg (50,000 unit) capsule amLODIPine 2021-0 Yes [id number] 10mg Take 1 Un jeannette 10 mg 6-22 tablet by ity of tablet 00:00: mouth [place] 00 daily. Medical Branch lisinopriL 2021-0 Yes [id number] 20mg Take 1 Un jeannette 20 mg 6-22 tablet by ity of tablet 00:00: mouth 2 [place] 00 (two) Medical times Branch daily. Dx: E11.65 amLODIPine 2-0 Yes [id number] 10mg Take 1 Un jeannette 10 mg 6-22 tablet by ity of tablet 00:00: mouth [place] 00 daily. Medical Branch lisinopriL 2022-0 Yes [id number] 20mg Take 1 Un jeannette 20 mg 6-22 tablet by ity of tablet 00:00: mouth 2 [place] 00 (two) Medical times Branch daily. Dx: E11.65 amLODIPine 2022-0 Yes [id number] 10mg Take 1 Un jeannette 10 mg 6-22 tablet by ity of tablet 00:00: mouth [place] 00 daily. Medical Branch lisinopriL 2022-0 Yes [id number] 20mg Take 1 Un jeannette 20 mg 6-22 tablet by ity of tablet 00:00: mouth 2 00 (two) Medical times Branch daily. Dx: E11.65 BUSPIRONE 2021-0 Yes [id number] Take 1 U nivers 10 mg 6-21 tablet by ity of tablet 00:00: mouth twice Medical daily Branch BUSPIRONE 2021-0 Yes [id number] Take 1 U nivers 10 mg 6-21 tablet by ity of tablet 00:00: mouth twice Medical daily Branch BUSPIRONE 2021-0 Yes [id number] Take 1 U nivers 10 mg 6-21 tablet by ity of tablet 00:00: mouth twice Medical daily Branch lancets 0 Yes Use as Univers (ULTRA THIN 5-13 directed ity of LANCETS) 30 00:00: to check [place] gauge Misc 00 blood Medical sugars 4 Branch times daily for E11.69 lancets 2021-0 Yes Use as Univers (ULTRA THIN 5-13 directed ity of LANCETS) 30 00:00: [place] check [place] gauge Misc 00 blood Medical sugars 4 Branch times daily for E11.69 lancets 2021-0 Yes Use as Univers (ULTRA THIN 5-13 directed ity of LANCETS) 30 00:00: to check [place] gauge Misc 00 blood Medical sugars 4 Branch times daily for E11.69 blood sugar 2021-0 Yes Use to [facility] ers diagnostic 5-05 check ity of (ACCU-CHEK 00:00: blood [place] GUIDE TEST 00 sugars 4 Medic al STRIPS) times Branch strip daily. Dx E11.69 blood sugar 2021-0 Yes Use to [facility] ers diagnostic 5-05 check ity of (ACCU-CHEK 00:00: blood [place] GUIDE TEST 00 sugars 4 Medic al STRIPS) times Branch strip daily. Dx E11.69 blood sugar 2021-0 Yes Use to [facility] ers diagnostic 5-05 check ity of (ACCU-CHEK 00:00: blood [place] GUIDE TEST 00 sugars 4 Medic al STRIPS) times Branch strip daily. Dx E11.69 Lancets 2021-0 Yes Use as Univers (RELION 4-25 directed ity of ULTRA THIN 00:00: to check [place] as PLUS 00 blood Medical LANCETS) sugars Branch Misc twice daily for E11.69 30 gauge please Lancets 0 Yes Use as Univers (RELION 4-25 directed ity of ULTRA THIN 00:00: to check [place] as PLUS 00 blood Medical LANCETS) sugars Branch Misc twice daily for E11.69 30 gauge please Lancets 0 Yes Use as Univers (RELION 4-25 directed ity of ULTRA THIN 00:00: to check [place] as PLUS 00 blood Medical LANCETS) sugars Branch Misc twice daily for E11.69 30 gauge please Blood-Gluco 0 Yes Use as Univ ers se Meter 4-21 directed ity of (ACCU-CHEK 00:00: to check [place] as GUIDE 00 blood Medical GLUCOSE sugars for Branch METER) Misc E11.65 lancets 0 Yes Use as Univers (ONE TOUCH 4-21 directed ity o f DELICA) 33 00:00: to check [place] as gauge Misc 00 blood Medical sugars Branch twice daily E11.65 Blood-Gluco 0 Yes Use as Univ ers se Meter 4-21 directed ity of (ACCU-CHEK 00:00: to check [place] as GUIDE 00 blood Medical GLUCOSE sugars for Branch METER) Misc E11.65 lancets 0 Yes Use as Univers (ONE TOUCH 4-21 directed ity o f DELICA) 33 00:00: to check [place] as gauge Misc 00 blood Medical sugars Branch twice daily E11.65 Blood-Gluco 0 Yes Use as Univ ers se Meter 4-21 directed ity of (ACCU-CHEK 00:00: to check [place] as GUIDE 00 blood Medical GLUCOSE sugars for Branch METER) Misc E11.65 lancets 0 Yes Use as Univers (ONE TOUCH 4-21 directed ity o f DELICA) 33 00:00: to check [place] as gauge Misc 00 blood Medical sugars Branch twice daily E11.65 insulin Yes [id number] INJECT UP U nivers lispro 08-09 TO 19 ity of (HUMALOG 00:00: UNITS [place] KWIKPEN 00 UNDER THE Medical INSULIN) SKIN THREE Branc h 100 unit/mL TIMES A pen DAY injector ACCORDING TO SLIDING SCALE Insulin Yes [id number] USE Univ ers [place], 4-08 DIRECTED ity of Disposable, 00:00: FIVE TIMES [place] (MAMI PEN 00 A DAY Medical NEEDLE) 32 Branch gauge x 5/32" Ndle insulin 0 Yes [id number] INJECT UP U nivers lispro 4-08 TO 19 ity of (HUMALOG 00:00: UNITS [place] KWIKPEN 00 UNDER THE Medical INSULIN) SKIN THREE Branc h 100 unit/mL TIMES A pen DAY injector ACCORDING TO SLIDING SCALE Insulin 0 Yes [id number] USE Univ ers [place], 4-08 DIRECTED ity of Disposable, 00:00: FIVE TIMES [place] (MAMI PEN 00 A DAY Medical NEEDLE) 32 Branch gauge x 5/32" Ndle insulin 0 Yes [id number] INJECT UP U nivers lispro 408 TO 19 ity of (HUMALOG 00:00: UNITS [place] KWIKPEN 00 UNDER THE Medical INSULIN) SKIN THREE Branc h 100 unit/mL TIMES A pen DAY injector ACCORDING TO SLIDING SCALE Insulin Yes [id number] USE Univ ers [place], 4-08 DIRECTED ity of Disposable, 00:00: FIVE TIMES [place] (MAMI PEN 00 A DAY Medical NEEDLE) 32 Branch gauge x 5/32" Ndle cyclobenzap 2021-0 Yes [id number] 10mg Take 1 Univers rine 10 mg 3-29 tablet by ity of tablet 00:00: mouth 3 00 (three) Medical times Branch daily. cyclobenzap 2021-0 Yes [id number] 10mg Take 1 Univers rine 10 mg 3-29 tablet by ity of tablet 00:00: mouth 3 00 (three) Medical times Branch daily. cyclobenzap 2021-0 Yes [id number] 10mg Take 1 Univers rine 10 mg 3-29 tablet by ity of tablet 00:00: mouth 3 00 (three) Medical times Branch daily. Diclofenac 2021-0 Yes [id number] APPLY 4G Univers Sodium 1 % 3-28 TO ity of gel 00:00: AFFECTED 00 AREAS TWO Medical TIMES A Branch DAY NEEDED FOR PAIN (SCALE 4-6) Diclofenac 2021-0 Yes [id number] APPLY 4G Univers Sodium 1 % 3-28 TO ity of gel 00:00: AFFECTED 00 AREAS TWO Medical TIMES A Branch DAY NEEDED FOR PAIN (SCALE 4-6) Diclofenac 2021-0 Yes [id number] APPLY 4G Univers Sodium 1 % 3-28 TO ity of gel 00:00: AFFECTED 00 AREAS TWO Medical TIMES A Branch DAY NEEDED FOR PAIN (SCALE 4-6) atorvastati 2020-05 Yes [id number] TAKE 1/2 Univers n 20 mg 1-19 (ONE-HALF) ity of tablet 00:00: TABLET BY [place] 00 MOUTH ONCE Medical DAILY Branch atorvastati 2020-05 Yes [id number] TAKE 1/2 Univers n 20 mg 1-19 (ONE-HALF) ity of tablet 00:00: TABLET BY [place] 00 MOUTH ONCE Medical DAILY Branch atorvastati 2020-05 Yes [id number] TAKE 1/2 Univers n 20 mg 1-19 (ONE-HALF) ity of tablet 00:00: TABLET BY [place] 00 MOUTH ONCE Medical DAILY Branch STRESS Yes [id number] Take 1 Univ ers FORMULA 8-30 tablet by ity of WITH ZINC 00:00: mouth once [place] tablet 00 daily Medical Branch STRESS Yes [id number] Take 1 Univ ers FORMULA 8-30 tablet by ity of WITH ZINC 00:00: mouth once [place] tablet 00 daily Medical Branch STRESS Yes [id number] Take 1 Univ ers FORMULA 8-30 tablet by ity of WITH ZINC 00:00: mouth once [place] tablet 00 daily Medical Branch levocetiriz Yes [id number] 5mg Take 1 Univers ine 5 mg 3-29 tablet by ity of tablet 00:00: mouth [place] [address] every Medical evening. Branch chlorhexidi Yes [id number] 15mL [place] and Univers ne 0.12 % 3-29 spit out ity of mouthwash 00:00: 15 mL 2 [place] 00 (two) Medical times Branch daily. azelastine Yes [id number] 1{spray Use 1 Univers 137 mcg 3-29 } [place] in ity of (0.1 %) 00:00: each [place] nasal spray 00 nostril 2 Med ical (two) Branch times daily. Use in each nostril as directed levocetiriz Yes [id number] 5mg Take 1 Univers ine 5 mg 3-29 tablet by ity of tablet 00:00: mouth [place] [address] every Medical evening. Branch chlorhexidi Yes [id number] 15mL Swish and Univers ne 0.12 % 3-29 spit out ity of mouthwash 00:00: 15 mL 2 [place] (two) Medical times Branch daily. azelastine Yes [id number] 1{spray Use 1 Univers 137 mcg 3-29 } [place] in ity of (0.1 %) 00:00: each [place] nasal spray 00 nostril 2 Med ical (two) Branch times daily. Use in each nostril as directed levocetiriz 2020-0 Yes [id number] 5mg Take 1 Univers ine 5 mg 3-29 tablet by ity of tablet 00:00: mouth [place] 00 every Medical evening. Branch chlorhexidi 0 Yes [id number] 15mL [place] and Univers ne 0.12 % 3-29 spit out ity of mouthwash 00:00: 15 mL 2 [place] (two) Medical times [place] daily. azelastine 0 Yes [id number] 1{spray Use 1 Univers 137 mcg 3-29 } [place] in ity of (0.1 %) 00:00: each [place] nasal spray 00 nostril 2 Med ical (two) Branch times daily. Use in each nostril as directed clobetasoL 2020-0 Yes [id number] Apply to Univers 0.05 % 3-27 area(s) 2 ity of cream 00:00: (two) [place] 00 times Medical daily. Branch clobetasoL 2020-0 Yes [id number] Apply to Univers 0.05 % 3-27 area(s) 2 ity of cream 00:00: (two) [place] 00 times Medical daily. Branch clobetasoL 2020-0 Yes [id number] Apply to Univers 0.05 % 3-27 area(s) 2 ity of cream 00:00: (two) [place] 00 times Medical daily. [place] Immunizations Ordered Filled Immunization Date Status Comments [facility] e Immunization Name Name TDAP 2015-05-22 Completed [facility] 00:00:00 [facility] TDAP 2015-05-22 Completed [facility] 00:00:00 [facility] TDAP 2015-05-22 Completed [facility] 00:00:00 [facility] Influenza Virus 2009-02-06 Completed Universit y of Vaccine 00:00:00 [facility] Influenza Virus 2009-02-06 Completed Universit y of Vaccine 00:00:00 [facility] Influenza Virus 2009-02-06 Completed Universit y of Vaccine 00:00:00 [facility] Procedures This patient has no known procedures. Encounters Start End Encounter Admission Attending Care Care Encounter Source Date/Time Date/Time Type Type Clinicians Facility Department ID 2022-01-08 2022-01-08 Telephone Ruth [facility] [id number] [facility] 00:00:00 00:00:00 Osiris MCCLAIN [id number] ity of [facility] [id number] [phone] [address] 2022-01-01 2022-01-01 Telephone Miranda, [facility] [id number] [facility] 00:00:00 00:00:00 Osiris MCCLAIN [id number] ity of [facility] [id number] [phone] [address] 2021-12-24 2021-12-24 [facility] [id number] [facility] 00:00:00 00:00:00 Osiris MCCLAIN [id number] ity of [facility] [id number] [phone] [address] 2020-02-29 2020-02-29 Office [facility] [id number] 13:34:05 13:54:05 Visit Castillo Mcclain [id number] [place] [id number] Professio [phone] [address] 2020-02-29 2020-02-29 Telephone Veronica [facility] [id number] 00:00:00 00:00:00 Magnus Mcclain [id number] [place] [id number] Professio [phone] [facility] [address] [facility] 2020-01-30 2020-01-30 Orders Doctor ALAN [id number] 00:00:00 00:00:00 Only Unassigned, AMIRA [id number] [place] [facility] [id number] Results This patient has no known results.
--- NOTE | 2022-01-08 18:46 | RAD REPORT ---
EXAM DESCRIPTION: RAD - Chest Single View - 01/08/2022 6:39 pm CLINICAL HISTORY: CHEST PAIN Chest pain. COMPARISON: Chest Single View dated 07/04/2017; Chest Single View dated 04/13/2017; Chest Pa And Lat ( 2 Views) dated 02/20/2016; CHEST SINGLE VIEW dated 09/05/2014 FINDINGS: Portable technique limits examination quality. The lungs are grossly clear. The heart is normal in size. No displaced fractures. IMPRESSION: No acute intrathoracic process suspected.
[2022-01-08] MEDS ORDERED: MECLIZINE HCL 12.5 MG TAB ONE (20:21)
[2022-01-08] MEDS ORDERED: ONDANSETRON 4 MG (ODT) TAB ONE (20:21)
[2022-01-08 20:52] LABS: Hematocrit 39.7 % (36.0-45.0); Lymphocytes % 31.6 % (15.3-44.8); MCV 89.9 fL (80-100); MPV 7.9 fL (7.6-11.3); RBC Red Blood Cell Count 4.42 M/uL (3.86-4.86)
[2022-01-08 20:57] LABS: Protime INR 1.01
[2022-01-08 21:11] LABS: Albumin 3.7 g/dL (3.4-5.0); Bilirubin Direct 0.1 mg/dL (0-0.2); Bilirubin Total 0.3 mg/dL (0.2-1.0); Potassium 3.8 mmol/L (3.5-5.1); Protein, Total 8.6 g/dL (6.4-8.2); Troponin High Sensitivity 3.5 pg/mL (<58.9)
--- NOTE | 2022-01-08 22:06 | RAD REPORT ---
EXAM DESCRIPTION: CT - Head Brain Wo Cont - 01/08/2022 9:42 pm CLINICAL HISTORY: dizziness Headache, drowsiness, dizziness COMPARISON: Head Brain Wo Cont dated 12/05/2019; HEAD BRAIN W O CONTRAST dated 06/20/2014; Neck Angio d ated 01/08/2022; Head angio dated 01/08/2022 TECHNIQUE: All CT scans are performed using dose optimization technique as appropriate and may inclu de automated exposure control or mA/KV adjustment according to patient size. FINDINGS: No intracranial hemorrhage, hydrocephalus or extra-axial fluid collection.No areas of brai n edema or evidence of midline shift. Mild vertebral atherosclerosis. The paranasal sinuses and mastoids are clear. The calvarium is intact. IMPRESSION: No acute intracranial abnormality.
--- NOTE | 2022-01-08 22:11 | RAD REPORT ---
EXAM DESCRIPTION: CT - Head angio - 01/08/2022 9:42 pm CLINICAL HISTORY: dizziness Headache, drowsiness, dizziness COMPARISON: Head Brain Wo Cont dated 01/08/2022; Head Brain Wo Cont dated 12/05/2019 TECHNIQUE: CT angiography of the head was performed with MIPs. All CT scans are performed using dose optimization technique as appropriate and may include automated exposure control or mA/KV adjustment according to patient size. FINDINGS: 6 mm aneurysm is suspected in the region of the left orbital apex. No additional aneurysm is detected. No flow-limiting stenosis or vascular malformation identified. Antegrade flow is seen in the vertebral arteries. Left vertebral artery is dominant. Mild bilateral v ertebral atherosclerosis. The visualized dural venous sinuses are patent. 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
--- NOTE | 2022-01-08 22:13 | RAD REPORT ---
EXAM DESCRIPTION: CT - Neck Angio - 01/08/2022 9:42 pm CLINICAL HISTORY: dizziness Headache, drowsiness dizziness COMPARISON: No comparisons TECHNIQUE: CT angiography of the neck vessels was performed with MIPs. All CT scans are performed using dose optimization technique as appropriate and may include automated exposure control or mA/KV adjustment according to patient size. FINDINGS: A left aortic arch is identified with normal three vessel configuration of the great vesse ls. No significant flow abnormality is seen of the common carotid bilaterally. Mild soft plaque is noted involving both carotid bulbs. Mild narrowing of both carotid bulbs is seen, however less than 50% bilaterally based on NASCET criteria. Atherosclerotic plaquing is seen involving vertebral arteries with antegrade flow seen. IMPRESSION: Less than 50% narrowing of both carotid bulbs is noted caused by soft plaque.
--- NOTE | 2022-01-09 00:01 | EDPHYS ---
Physician Documentation [facility] Name: Liss Ro Age: 66 yrs Sex: Female : 1955 Arrival Date: 01/08/2022 Time: 17:05 Bed 13 Private MD: ED Physician Saúl Corona HPI: 01/08 20:29 This 66 yrs old Female presents to ER via Ambulatory with complaints of pm1 Dizziness. 20:29 The patient presents with sense of spinning, vertigo. pm1 20:29 Onset: The symptoms/episode began/occurred 3 day(s) ago. Context: occurred at an pm1 unknown location, occurred while the patient was lying down, Changing position. just prior to the episode the patient experienced no apparent symptoms. Modifying factors: the symptoms are aggravated by changing position, Lying down. Associated signs and symptoms: Pertinent negatives: headache, numbness, tingling, Weakness. Severity of symptoms: in the emergency department the symptoms are unchanged Pain is currently a 0 / 10. Patient's baseline: Neuro: alert and fully oriented, Motor: no deficits, Ambulation: walks without assistance, Speech: normal. Similar to prior benign positional vertigo. The patient has not recently seen a physician. Historical: - Allergies: 17:43 Bactrim; kb3 17:43 Codeine; kb3 17:43 Flagyl; kb3 17:43 Morphine; kb3 17:43 Sulfa (Sulfonamide Antibiotics); kb3 17:43 tramadol; kb3 - PMHx: 17:43 Anxiety; Diabetes - IDDM; Herniated disc; Hypertension; Positional Vertigo; PTSD; kb3 - Immunization history:: Adult Immunizations up to date, Client reports receiving the 2nd dose of the Covid vaccine, Last tetanus immunization: up to date. - Social history:: Smoking status: Patient denies any tobacco usage or history of. ROS: 20:29 Constitutional: Negative for fever, chills, and weight loss, Cardiovascular: Negative pm1 for chest pain, palpitations, and edema, Respiratory: Negative for shortness of breath, cough, wheezing, and pleuritic chest pain, Back: Negative for injury and pain, MS/Extremity: Negative for injury and deformity, Skin: Negative for injury, rash, and discoloration. 20:29 Abdomen/GI: Positive for nausea, Negative for abdominal pain, vomiting, diarrhea. 20:29 Neuro: Positive for dizziness, Negative for headache, numbness, tingling. 20:29 All other systems are negative. Exam: 20:29 Constitutional: This is a well developed, well nourished patient who is awake, alert, pm1 and in no acute distress. Head/Face: Normocephalic, atraumatic. 20:29 Back: No spinal tenderness. No costovertebral tenderness. Full range of motion. Skin: Warm, dry with normal turgor. Normal color with no rashes, no lesions, and no evidence of cellulitis. MS/ Extremity: Pulses equal, no cyanosis. Neurovascular intact. Full, normal range of motion. 20:29 Eyes: Periorbital structures: appear normal, Pupils: no acute changes, Extraocular movements: no acute changes, Conjunctiva: no acute changes, no injection, Nystagmus: Present with rightward gazing both eyes. 20:29 ENT: Exam is negative for acute changes, Mouth: no acute changes, Lips: normal, moist, Oral mucosa: normal, pink and intact, moist. 20:29 Cardiovascular: Exam negative for acute changes, Rate: normal, Rhythm: regular, Pulses: no pulse deficits are appreciated, Heart sounds: normal, normal S1and S2. 20:29 Respiratory: Exam negative for acute changes, respiratory distress, shortness of breath, Breath sounds: are clear throughout. 20:29 Neuro: Exam negative for acute changes, Orientation: is normal, Mentation: is normal, Motor: is normal, moves all fours, Sensation: no obvious gross deficits, Gait: is steady, at a normal pace, without difficulty. Vital Signs: 17:41 BP 161 / 71; Pulse 100; Resp 18; Temp 98.6; Pulse Ox 100% ; Weight 77.11 kg; Height 4 kb3 ft. 11 in. (149.86 cm); Pain 10/10; 20:46 BP 128 / 63; Pulse 86; Resp 14; Pulse Ox 99% on R/A; ll3 22:06 BP 125 / 66; Pulse 87; Resp 16; Pulse Ox 98% on R/A; ll3 22:45 BP 113 / 70; Pulse 90; Resp 14; Pulse Ox 96% on R/A; ll3 09/08 00:00 BP 126 / 69; Pulse 90; Resp 15; Pulse Ox 97% on R/A; ll3 01/08 17:41 Body Mass Index 34.34 (77.11 kg, 149.86 cm) kb3 MDM: 01/08 17:51 Patient medically screened. [facility] 20:29 ED course: Patient refused freda hallpike maneuver test because she reports that lying pm1 down flat is what causes her to get spinning sensation. 21:21 Data reviewed: vital signs. Data interpreted: Pulse oximetry: on room air is 97 %. pm1 Interpretation: normal. 23:44 Physician consultation: Kenneth Navarro MD was called at 23:45, was contacted at 23:45, pm1 regarding consult, patient's condition, CT scan result. Aneursym that is small can be followed up in the outpatient setting. it is not causing her symptoms of vertigo. Will discharge the patient home with meclizine. 01/08 17:52 Order name: Basic Metabolic Panel; Complete Time: 21:21 [facility] 01/08 17:52 Order name: CBC with Diff; Complete Time: 21:21 [facility] 01/08 17:52 Order name: LFT's; Complete Time: 21:21 [facility] 01/08 17:52 Order name: Magnesium; Complete Time: 21:21 [facility] 01/08 17:52 Order name: NT PRO-BNP; Complete Time: 21:21 [facility] 01/08 17:52 Order name: PT-INR; Complete Time: 21:21 [facility] 01/08 17:52 Order name: Troponin HS; Complete Time: 21:21 [facility] 01/08 17:52 Order name: XRAY Chest (1 view); Complete Time: 18:51 [facility] 01/08 17:53 Order name: SARS-COV-2 RT PCR (Document "Date of Onset" if Symptomatic); Complete Time: [facility] 21:35 01/08 18:24 Order name: Head angio; Complete Time: 22:38 [facility] 01/08 18:24 Order name: Head Brain Wo Cont; Complete Time: 22:08 [facility] 01/08 18:24 Order name: Neck Angio; Complete Time: 22:38 [facility] 01/08 17:52 Order name: EKG; Complete Time: 17:54 [facility] 01/08 17:52 Order name: Cardiac monitoring; Complete Time: 20:44 [facility] 01/08 17:52 Order name: EKG - Nurse/Tech; Complete Time: 20:08 [facility] 01/08 17:52 Order name: IV Saline Lock; Complete Time: 20:44 [facility] 01/08 17:52 Order name: Labs collected and sent; Complete Time: 20:44 [facility] 01/08 17:52 Order name: O2 Per Protocol; Complete Time: 20:08 [facility] 01/08 17:52 Order name: O2 Sat Monitoring; Complete Time: 20:08 [facility] Administered Medications: 20:21 Drug: Meclizine 50 mg Route: PO; 3 01/09 00:26 Follow up: Response: No adverse reaction [facility] 01/08 20:21 Drug: Zofran (Ondansetron) 4 mg Route: PO; [facility] 01/09 00:26 Follow up: Response: No adverse reaction 3 Disposition: 01/08 22:17 Co-signature as Attending Physician, Saúl Corona DO I was immediately available on-site ms3 in the Emergency Department for consultation in the care of the patient. . Disposition Summary: 01/09/22 00:00 Discharge Ordered Location: Home pm1 Problem: new pm1 Symptoms: have improved pm1 Condition: Stable pm1 Diagnosis - Benign paroxysmal vertigo pm1 Followup: pm1 - With: Emergency Department - When: As needed - Reason: Worsening of condition Followup: pm1 - With: Private Physician - When: 2 - 3 days - Reason: Recheck today's complaints, Continuance of care, Re-evaluation by your physician Discharge Instructions: - Discharge Summary Sheet pm1 - Benign Positional Vertigo pm1 Forms: - Medication Reconciliation Form pm1 - Thank You Letter pm1 - Antibiotic Education pm1 - Prescription Opioid Use pm1 Prescriptions: - ondansetron 4 mg Oral tablet,disintegrating - place 1 tablet by TRANSLINGUAL route every 8 hours As needed; 12 tablet; pm1 Refills: 0, Product Selection Permitted - Meclizine 25 mg Oral Tablet - take 1 tablet by ORAL route every 8 hours As needed; 30 tablet; Refills: 0, pm1 Product Selection Permitted Signatures: Dispatcher [employer] EDDavid Horne PA PA m Robin Lagunas, [employer] CLE[employer]ER M[employer] CLEANER pm1 Saúl Corona DO DO ms3 Winnie Hernandez RN RN ll3 Leatha, Marizol, RN RN kb3
--- NOTE | 2022-01-09 00:01 | ER ---
Nurse's Notes [facility] Name: Liss Ro Age: 66 yrs Sex: Female : 1955 Arrival Date: 01/08/2022 Time: 17:05 Bed 13 Private MD: Diagnosis: Benign paroxysmal vertigo Presentation: 01/08 17:41 Chief complaint: Patient states: Pt reports intermittent dizziness x3 days, worse kb3 today, with associated nausea. Denies fever; chills. Hx: vertigo. Coronavirus screen: Vaccine status: Patient reports being unvaccinated. Client denies travel out of the [place] in the last 14 days. Ebola Screen: Patient negative for fever greater than or equal to 101.5 degrees Fahrenheit, and additional compatible Ebola Virus Disease symptoms Patient denies exposure to infectious person. Patient denies travel to an Ebola-affected area in the 21 days before illness onset. No symptoms or risks identified at this time. Initial Sepsis Screen: Does the patient meet any 2 criteria? No. Patient's initial sepsis screen is negative. Does the patient have a suspected source of infection? No. Patient's initial sepsis screen is negative. Risk Assessment: Do you want to hurt yourself or someone else? Patient reports no desire to harm self or others. Onset of symptoms was January 05, 2022. 17:41 Method Of Arrival: Ambulatory kb3 17:41 Acuity: MALINI 3 kb3 Triage Assessment: 17:43 General: Appears in no apparent distress. Behavior is calm, cooperative. Pain: Denies kb3 pain. Historical: - Allergies: 17:43 Bactrim; kb3 17:43 Codeine; kb3 17:43 Flagyl; kb3 17:43 Morphine; kb3 17:43 Sulfa (Sulfonamide Antibiotics); kb3 17:43 tramadol; kb3 - PMHx: 17:43 Anxiety; Diabetes - IDDM; Herniated disc; Hypertension; Positional Vertigo; PTSD; kb3 - Immunization history:: Adult Immunizations up to date, Client reports receiving the 2nd dose of the Covid vaccine, Last tetanus immunization: up to date. - Social history:: Smoking status: Patient denies any tobacco usage or history of. Screenin/08 00:24 Abuse screen: Denies threats or abuse. Denies injuries from another. Nutritional ll3 screening: No deficits noted. Tuberculosis screening: No symptoms or risk factors identified. Fall Risk No fall in past 12 months (0 pts). No secondary diagnosis (0 pts). IV access (20 points). Ambulatory Aid- Crutches/Cane/Walker (15 pts). Gait- Normal/Bed Rest/Wheelchair (0 pts) Mental Status- Oriented to own ability (0 pts). Total Adams Fall Scale indicates Low Risk Score (25-44 pts). Fall prevention measures have been instituted. Side Rails Up X 2. Assessment: 01/08 20:45 General: Appears comfortable, Behavior is calm, cooperative. Neuro: Reports dizziness. ll3 Cardiovascular: Patient's skin is warm and dry. Rhythm is sinus rhythm. Respiratory: Respiratory effort is even, unlabored, Respiratory pattern is regular, symmetrical. GI: Reports nausea. Derm: Skin is pink, warm \T\ dry. Musculoskeletal: Circulation, motion, and sensation intact. 22:06 Reassessment: No changes from previously documented assessment. Patient and/or family ll3 updated on plan of care and expected duration. Pain level reassessed. Patient is alert, oriented x 3, equal unlabored respirations, skin warm/dry/pink. Vital Signs: 17:41 BP 161 / 71; Pulse 100; Resp 18; Temp 98.6; Pulse Ox 100% ; Weight 77.11 kg; Height 4 kb3 ft. 11 in. (149.86 cm); Pain 10/10; 20:46 BP 128 / 63; Pulse 86; Resp 14; Pulse Ox 99% on R/A; ll3 22:06 BP 125 / 66; Pulse 87; Resp 16; Pulse Ox 98% on R/A; ll3 22:45 BP 113 / 70; Pulse 90; Resp 14; Pulse Ox 96% on R/A; ll3 08 00:00 BP 126 / 69; Pulse 90; Resp 15; Pulse Ox 97% on R/A; ll3 01/08 17:41 Body Mass Index 34.34 (77.11 kg, 149.86 cm) kb3 ED Course: 01/08 17:05 Patient arrived in ED. mr 17:07 David Terrell PA is PHCP. [facility] 17:07 Saúl Corona DO is Attending Physician. [facility] 17:43 Triage completed. kb3 17:43 Arm band placed on right wrist. kb3 18:41 XRAY Chest (1 view) In Process Unspecified. EDMS 20:11 PHCP role handed off by David Terrell PA pm1 20:11 Robin Lagunas, JADEN is PHCP. pm1 20:44 Inserted saline lock: 22 gauge in left antecubital area, using aseptic technique. Blood ll3 collected. 21:44 Head angio In Process Unspecified. EDMS 21:44 Head Brain Wo Cont In Process Unspecified. EDMS 21:44 Neck Angio In Process Unspecified. EDMS 01/09 00:25 Patient has correct armband on for positive identification. Placed in gown. Bed in low ll3 position. Call light in reach. Side rails up X 1. 00:25 No provider procedures requiring assistance completed. IV discontinued, intact, ll3 bleeding controlled, No redness/swelling at site. Pressure dressing applied. Administered Medications: 01/08 20:21 Drug: Meclizine 50 mg Route: PO; ll3 01/09 00:26 Follow up: Response: No adverse reaction ll3 01/08 20:21 Drug: Zofran (Ondansetron) 4 mg Route: PO; ll3 01/09 00:26 Follow up: Response: No adverse reaction ll3 Medication: 00:25 VIS not applicable for this client. ll3 Outcome: 00:00 Discharge ordered by . pm1 00:25 Discharged to home ambulatory, with friend. ll3 00:25 Condition: stable 00:25 Discharge instructions given to patient, Instructed on discharge instructions, follow up and referral plans. medication usage, Demonstrated understanding of instructions, follow-up care, medications, Prescriptions given X 2. 00:29 Patient left the ED. ll3 Signatures: Dispatcher [employer] EDNH David Terrell PA PA jmm Tayler Fernandez mr Robin Lagunas, JADEN [employer] SUPERVISOR pm1 Winnie Hernandez RN RN ll3 Marizol Zhang RN RN kb3
[2022-01-09 04:05] VITALS: TEMP 98.6
[2022-01-09 04:17] VITALS: BP 126/69; O2SAT 97
--- NOTE | 2022-01-09 10:52 | EKG ---
Test Date: 2022-01-08 Test Time: 18:02:48 Packaging Sales: CAL MEASUREMENT RESULTS: Intervals: Rate: 98 VA: 148 QRSD: 116 QT: 382 QTc: 487 [place]: P: 44 VA: 148 QRS: -28 T: 25 INTERPRETIVE STATEMENTS: Normal sinus rhythm Right bundle branch block Abnormal ECG Compared to ECG 07/04/2017 21:27:35 No significant changes Electronically Signed On 01-09-22 10:50:08 CDT by Josue Montiel
== END 2022-01-09 00:29 | disposition home or self-care (01) ==
LOC: ER 16:57
DX: H81.10 Benign paroxysmal vertigo, unspecified ear (principal); I10 Essential (primary) hypertension; Z88.1 Allergy status to other antibiotic agents; Z88.2 Allergy status to sulfonamides; Z88.5 Allergy status to narcotic agent; Z20.822 Contact with and (suspected) exposure to COVID-19
CPT/HCPCS: 93005; 85025; 80048; 36415; 83735; 85610; 80076; 84484; 83880; 70450; 70496; 70498; 71045; 99284; U0003; Q9967; J8597; Q0162

== ENCOUNTER 2022-01-13 11:33 | Emergency (ER) | payer OTHER ==
--- OUTSIDE RECORDS SUMMARY | 2022-01-13 11:40 | XMS REPORT | Continuity of Care Document ---
:1955 Author Organization [facility] [place] t Address [address] [place] [address] Care Team Providers Name Role Phone OSIRIS MIRANDA Primary Care Physician Unavailable CASTILLO CARCAMO Attending Clinician Unavailable OSIRIS MIRANDA Attending Clinician Unavailable Osiris Miranda MD Attending Clinician [phone] Castillo Carcamo MD Attending Clinician Magnus Martin MD Attending Clinician Doctor Unassigned, [place] Attending Clinician Unavailable Payers Payer Name Policy Type Policy Number Effective Date Expiration Date Rigoberto puri MEDICARE PART A [id number] 2006 \\T\\ B 00:00:00 [id number] 2021 2022 00:00:00 00:00:00 Problems Condition Condition Condition Status Onset Resolution Last Treating Co mments Source Name Details Category Date Date Treatment Clinician Date Obesity Obesity Disease Active Univers (BMI (BMI 4-28 ity of 30-39.9) 30-39.9) 00:00: [address] DAVIS DAVIS Disease Active Univers (obstructi (obstructi 4-20 it y of ve sleep ve sleep 00:00: [place] apnea) apnea) [address] [place] [address] Vulvar Vulvar Disease Active Univers lesion lesion 1-27 ity of 00:00: [address] Lichen Lichen Disease Active Univers sclerosus sclerosus 1-19 ity of 00:00: [place] 00 Medical Branch Postmenopa Postmenopa Disease Active U nivers usal usal 05-22 ity of status status 00:00: [place] [facility] Postmenopa Postmenopa Disease Active U nivers usal usal 05-22 ity of atrophic atrophic 00:00: [place] vaginitis vaginitis 00 Medi ila Branch H/O: H/O: Disease Active Univers hysterecto hysterecto 05-22 it y of my my 00:00: [place] [facility] Mixed Mixed Disease Active Univers incontinen incontinen 05-22 it y of ce ce 00:00: [place] [facility] Obesity Obesity Disease Active Overview: Univ ers 9-15 Formattin ity of 00:00: g of this 00 note Medical might be Branch different from the original. 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 state state 12-08 Formattin ity of 00:00: g of this 00 note Medical might be Branch different from the original. 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 Lower back Essential Essential Disease Active Uni vers hypertensi hypertensi 12-08 it y of on, benign on, benign 00:00: [place] Pain in Pain in Disease Active Overview: [facility] ers joint, joint, 12-08 Formattin ity of lower leg lower leg 00:00: g of this [place] note Medical might be Branch different from the original. Knee problem Diabetes Diabetes Disease Active Overview: Un jeannette mellitus mellitus 12-08 Formattin ity of type 2, type 2, 00:00: g of this [place] uncontroll uncontroll 00 note Me dical ed, ed, might be Branch without without different complicati complicati from the ons ons original. 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 Type 2 Type 2 Disease Active Univers diabetes diabetes 12-08 ity of mellitus, mellitus, 00:00[place] with with 00 Medical long-term long-term Bran ch current current use of use of insulin insulin Arthritis Arthritis Disease Active Uni vers ity of [place] [facility] Allergies, Adverse Reactions, Alerts Allergy Allergy Status Severity Reaction(s) Onset Inactive Treating Comm ents Source Name Type Date Date Clinician AMOXICIL DRUG Active Med Unknown-Cmnt Un jeannette ALONDRA INGREDI 11-29 ity of 00:00: [place] 00 Medical Branch Amoxicil Propensi Active Unknown - Blurry Uni vers alondra ty to See comments 11-29 vision ity of adverse 00:00: [place] reaction 00 Medical s Branch MORPHINE DRUG Active Anxiety Univers INGREDI 12-06 ity of 00:00: [place] 00 Medical Branch Morphine Propensi Active Anxiety 2017-0 Unive rs ty to 12-06 ity of adverse 00:00: [place] reaction 00 Medical s Branch TRAMADOL DRUG Active Anxiety 2017-0 Univers INGREDI - ity of 00:00: [place] 00 Medical Branch Tramadol Propensi Active Anxiety 2016- Pt felt Univ ers ty to 06-24 "weird" ity of adverse 00:00: [place] reaction 00 Medical s Branch METRONID DRUG Active Other-Cmnt Univ ers AZOLE INGREDI 05-24 ity of 00:00: [place] 00 Medical Branch Metronid Propensi Active Other - See Throat U nivers azole ty to comments 05-24 swelling ity of adverse 00:00: [place] reaction 00 Medical s Branch PROMETHA DRUG Active N/V Univers ZINE HCL INGREDI 05-05 ity of 00:00: [place] 00 Medical Branch Prometha Drug Active Nausea Univers zine Hcl Intolera and/or 05-05 ity of nce Vomiting 00:00: [place] 00 Medical Branch SULFAMET DRUG Active Unknown-Cmnt Un jeannette HOXAZOLE 12-08 ity of -TRIMETH 00:00: [place] OPRIM 00 Medical Branch CODEINE DRUG Active Unknown-Cmnt Uni vers INGREDI 12-08 ity of 00:00: [place] 00 Medical Branch Sulfamet Propensi Active Unknown - 2006-0 Uni vers hoxazole ty to See comments [...] Source Exposure to 2021-11-18 2021-11-28 Not sure [facility] SARS-CoV-2 00:00:00 08:37:00 [facility] (event) Branch Alcohol intake 2021-09-26 2021-09-26 0 /d University of 00:00:00 00:00:00 [facility] Tobacco use and 2011-12-15 2011-12-15 Smokeless tobacco Un iversity of exposure 00:00:00 00:00:00 non-user [facility] Sex Ass[birth year] At [birth year] Universit y of 00:00:00 00:00:00 [facility] Smoking Status Start Date Stop Date Source Never smoked tobacco [facility] Medications Ordered Filled Start Stop Current Ordering Indication Dosage Frequency Signature Comments Components Source Medication Medication Date Date Medication? Clinician (SIG) Name Name simethicone 0 Yes Take by Uni vers (GAS-X 7-14 mouth. ity of ORAL) 15:37: [address] simethicone 2021-0 Yes Take by Uni vers (GAS-X 7-14 mouth. ity of ORAL) 15:37: [address] simethicone 2021-0 Yes Take by Uni vers (GAS-X 7-14 mouth. ity of ORAL) 15:37: [address] polyethylen 2021-0 Yes Take by Uni vers e glycol 7-14 mouth. ity of 3350 15:37: [place] (MIRALAX 02 Medical ORAL) Branch polyethylen 2021-0 Yes Take by Uni vers e glycol 7-14 mouth. ity of 3350 15:37: [place] (MIRALAX 02 Medical ORAL) Branch polyethylen 2021-0 Yes Take by Uni vers e glycol 7-14 mouth. ity of 3350 15:37: [place] (MIRALAX 02 Medical ORAL) Branch famotidine 2021-0 Yes [id number] 40mg Take 1 Univers 40 mg 7-14 tablet by ity of tablet 00:00: mouth in [place] 00 the Medical morning. Branch Get over the counter if not available omeprazole 2021-0 Yes [id number] 40mg Take 1 Univers 40 mg 7-14 capsule by ity of capsule 00:00: mouth in [place] 00 the Medical morning. Branch dicyclomine 2021-0 Yes [id number] 10mg Take 1 Univers 10 mg 7-14 capsule by ity of capsule 00:00: mouth 2 [place] 00 (two) Medical times Branch daily as needed for Other (abdominal pain). Take 10 mg by mouth 2 (two) times daily as needed. hydrOXYzine 2021-0 Yes [id number] 25mg Take 1 Univers 25 mg 7-14 tablet by ity of tablet 00:00: mouth 3 (three) Medical times Branch daily as needed for Itching. albuterol 2021-0 Yes [id number] INHALE 2 Univers 90 7-14 PUFFS BY ity of mcg/actuati 00:00: MOUTH [place] on inhaler 00 EVERY 6 Medica l HOURS Branch NEEDED FOR WHEEZING FOR SHORTNESS OF BREATH DULoxetine 2021-0 Yes [id number] TAKE 1 Un jeann[place] 30 mg 7-14 CAPSULE BY ity of capsule 00:00: MOUTH ONCE [place] 00 DAILY FOR Medical ANXIETY Branch famotidine 2021-0 Yes [id number] 40mg Take 1 Univers 40 mg 7-14 tablet by ity of tablet 00:00: mouth in [place] the Medical morning. Branch Get over the counter if not available omeprazole 2021-0 Yes [id number] 40mg Take 1 Univers 40 mg 7-14 capsule by ity of capsule 00:00: mouth in [place] the Medical morning. Branch dicyclomine 2021-0 Yes [id number] 10mg Take 1 Univers 10 mg 7-14 capsule by ity of capsule 00:00: mouth 2 [place] (two) Medical times Branch daily as needed for Other (abdominal pain). Take 10 mg by mouth 2 (two) times daily as needed. hydrOXYzine 2021-0 Yes [id number] 25mg Take 1 Univers 25 mg 7-14 tablet by ity of tablet 00:00: mouth 3 [place] (three) Medical times Branch daily as needed for Itching. albuterol 2021-0 Yes [id number] INHALE 2 Univers 90 7-14 PUFFS BY ity of mcg/actuati 00:00: MOUTH [place] on inhaler 00 EVERY 6 Medica l HOURS Branch NEEDED FOR WHEEZING FOR SHORTNESS OF BREATH DULoxetine 2021-0 Yes [id number] TAKE 1 Un jeann[place] 30 mg 7-14 CAPSULE BY ity of capsule 00:00: MOUTH ONCE [place] 00 DAILY FOR Medical ANXIETY Branch famotidine 2-0 Yes [id number] 40mg Take 1 Univers 40 mg 7-14 tablet by ity of tablet 00:00: mouth in [place] the Medical morning. Branch Get over the counter if not available omeprazole 2-0 Yes [id number] 40mg Take 1 Univers 40 mg 7-14 capsule by ity of capsule 00:00: mouth in [place] the Medical morning. Branch dicyclomine 2022-0 Yes [id number] 10mg Take 1 Univers 10 mg 7-14 capsule by ity of capsule 00:00: mouth 2 00 (two) Medical times Branch daily as needed for Other (abdominal pain). Take 10 mg by mouth 2 (two) times daily as needed. hydrOXYzine Yes [id number] 25mg Take 1 Univers 25 mg 7-14 tablet by ity of tablet 00:00: mouth 3 00 (three) Medical times Branch daily as needed for Itching. albuterol Yes [id number] INHALE 2 Univers 90 7-14 PUFFS BY ity of mcg/actuati 00:00: MOUTH [place] on inhaler 00 EVERY 6 Medica l HOURS Branch NEEDED FOR WHEEZING FOR SHORTNESS OF BREATH DULoxetine Yes [id number] TAKE 1 Un [place] 30 mg 7-14 CAPSULE BY ity of capsule 00:00: M[place]TH ONCE [place] 00 DAILY FOR Medical ANXIETY Branch LANTUS Yes [id number] INJECT 14 Un [place] SOLOSTAR 7-03 UNITS ity of U-100 00:00: [facility] INSULIN 100 00 USLY ONCE Med ical unit/mL (3 DAILY Branch mL) injection LANTUS Yes [id number] INJECT 14 Un [place]annette SOLOSTAR 7-03 UNITS ity of U-100 [facility] Med ical unit/mL (3 DAILY Branch mL) injection LANTUS 0 Yes [id number] INJECT 14 Un jeannette SOLOSTAR 7-03 UNITS ity of U-100 00:00: [facility] INSULIN 100 00 USLY ONCE Med ical unit/mL (3 DAILY Branch mL) injection ergocalcife 0 Yes [id number] 13254U Take 1 Univers rol, 6-23 capsule by ity of vitamin d2, 00:00: mouth [place] (VITAMIN 00 weekly. Medical D2) 1,250 Branch mcg (50,000 unit) capsule ergocalcife Yes [id number] Take 1 Univers rol, 6-23 capsule by ity of vitamin d2, 00:00: mouth [place] (VITAMIN 00 weekly. Medical D2) 1,250 Branch mcg (50,000 unit) capsule ergocalcife Yes [id number] 03910S Take 1 Univers rol, 6-23 capsule by ity of vitamin d2, 00:00: mouth [place] (VITAMIN 00 weekly. Medical D2) 1,250 Branch mcg (50,000 unit) capsule amLODIPine Yes [id number] 10mg Take 1 Un jeannette 10 mg 6-22 tablet by ity of tablet 00:00: mouth 00 daily. Medical Branch lisinopriL Yes [id number] 20mg Take 1 Un jeannette 20 mg 6-22 tablet by ity of tablet 00:00: mouth 2 (two) Medical times Branch daily. Dx: E11.65 amLODIPine Yes [id number] 10mg Take 1 Un [place] 10 mg 6-22 tablet by ity of tablet 00:00: mouth 00 daily. Medical Branch lisinopriL Yes [id number] 20mg Take 1 Un jeannette 20 mg 6-22 tablet by ity of tablet 00:00: mouth 2 [place] (two) Medical times Branch daily. Dx: E11.65 amLODIPine Yes [id number] 10mg Take 1 Un jeannette 10 mg 6-22 tablet by ity of tablet 00:00: mouth 00 daily. Medical Branch lisinopriL Yes [id number] 20mg Take 1 Un jeannette 20 mg 6-22 tablet by ity of tablet 00:00: mouth 2 (two) Medical times Branch daily. Dx: E11.65 BUSPIRONE Yes [id number] Take 1 U nivers 10 mg 6-21 tablet by ity of tablet 00:00: mouth 00 twice Medical daily Branch BUSPIRONE 0 Yes [id number] Take 1 U nivers 10 mg 6-21 tablet by ity of tablet 00:00: mouth 00 twice Medical daily Branch BUSPIRONE Yes [id number] Take 1 U nivers 10 mg 6-21 tablet by ity of tablet 00:00: mouth [place] 00 twice Medical daily Branch lancets Yes Use as Univers (ULTRA THIN 5-13 directed ity of LANCETS) 30 00:00: to check [place] gauge Misc 00 blood Medical sugars 4 Branch times daily for E11.69 lancets 2022-0 Yes Use as Univers (ULTRA THIN 5-13 directed ity of LANCETS) 30 00:00: [place] check [place] gauge Misc 00 blood Medical sugars 4 Branch times daily for E11.69 lancets 0 Yes Use as Univers (ULTRA THIN 5-13 directed ity of LANCETS) 30 00:00: [place] check [place] gauge Misc 00 blood Medical sugars 4 Branch times daily for E11.69 blood sugar 0 Yes Use to Univ ers diagnostic 5-05 check ity of (ACCU-CHEK 00:00: blood [place] GUIDE TEST 00 sugars 4 Medic al STRIPS) times Branch strip daily. Dx E11.69 blood sugar 0 Yes Use to Univ ers diagnostic 5-05 check ity of (ACCU-CHEK 00:00: blood [place] GUIDE TEST 00 sugars 4 Medic al STRIPS) times Branch strip daily. Dx E11.69 blood sugar 0 Yes Use to Univ ers diagnostic 5-05 check ity of (ACCU-CHEK 00:00: blood [place] GUIDE TEST 00 sugars 4 Medic al STRIPS) times Branch strip daily. Dx E11.69 Lancets 0 Yes Use as Univers (RELION 4-25 directed ity of ULTRA THIN 00:00: to check [place] as PLUS 00 blood Medical LANCETS) sugars Branch Misc twice daily for E11.69 30 gauge please Lancets 2021-0 Yes Use as Univers (RELION 4-25 directed ity of ULTRA THIN 00:00: to check [place] as PLUS 00 blood Medical LANCETS) sugars Branch Misc twice daily for E11.69 30 gauge please Lancets 2021-0 Yes Use as Univers (RELION 4-25 directed ity of ULTRA THIN 00:00: to check [place] as PLUS 00 blood Medical LANCETS) sugars Branch Misc twice daily for E11.69 30 gauge please Blood-Gluco 2021-0 Yes Use as Univ ers se Meter 4-21 directed ity of (ACCU-CHEK 00:00: to check [place] GUIDE 00 blood Medical GLUCOSE sugars for Branch METER) Misc E11.65 lancets 2021-0 Yes Use as Univers (ONE TOUCH 4-21 directed ity o f DELICA) 33 00:00: to check [place] as gauge Misc 00 blood Medical sugars Branch twice daily E11.65 Blood-Gluco 2021-0 Yes Use as Univ ers se Meter 4-21 directed ity of (ACCU-CHEK 00:00: to check [place] as GUIDE 00 blood Medical GLUCOSE sugars for Branch METER) [facility] E11.65 lancets 0 Yes Use as Univers (ONE TOUCH 4-21 directed ity o f DELICA) 33 00:00: to check [place] as gauge Misc 00 blood Medical sugars Branch twice daily E11.65 Blood-Gluco 0 Yes Use as Univ ers se Meter 4-21 directed ity of (ACCU-CHEK 00:00: to check [place] as GUIDE 00 blood Medical GLUCOSE sugars for Branch METER) [facility] E11.65 lancets 0 Yes Use as Univers (ONE TOUCH 4-21 directed ity o f DELICA) 33 00:00: to check [place] as gauge Misc 00 blood Medical sugars Branch twice daily E11.65 insulin Yes [id number] INJECT UP U nivers lispro 4-08 TO 19 ity of (HUMALOG 00:00: UNITS [place] KWIKPEN 00 UNDER THE Medical INSULIN) SKIN THREE Branc h 100 unit/mL TIMES A pen DAY injector ACCORDING TO SLIDING SCALE Insulin Yes [id number] USE Univ ers [place], 4-08 DIRECTED ity of Disposable, 00:00: FIVE TIMES [place] (MAMI PEN 00 A DAY Medical NEEDLE) 32 Branch gauge x 5/32" Ndle insulin Yes [id number] INJECT UP U nivers lispro 4-08 TO 19 ity of (HUMALOG 00:00: UNITS [place] KWIKPEN 00 UNDER THE Medical INSULIN) SKIN THREE Branc h 100 unit/mL TIMES A pen DAY injector ACCORDING TO SLIDING SCALE Insulin Yes [id number] USE Univ ers [place], 4-08 DIRECTED ity of Disposable, 00:00: FIVE TIMES [place] (MAMI PEN 00 A DAY Medical NEEDLE) 32 Branch gauge x 5/32" Ndle insulin 0 Yes [id number] INJECT UP U nivers lispro 4-08 TO 19 ity of (HUMALOG 00:00: UNITS [place] KWIKPEN 00 UNDER THE Medical INSULIN) SKIN THREE Branc h 100 unit/mL TIMES A pen DAY injector ACCORDING TO SLIDING SCALE Insulin 0 Yes [id number] USE Univ ers [place], 4-08 DIRECTED ity of Disposable, 00:00: FIVE TIMES [place] (MAIM PEN 00 A DAY Medical NEEDLE) 32 Branch gauge x 5/32" Ndle cyclobenzap Yes [id number] 10mg Take 1 Univers rine 10 mg 3-29 tablet by ity of tablet 00:00: mouth 3 [place] 00 (three) Medical times Branch daily. cyclobenzap 0 Yes [id number] 10mg Take 1 Univers rine 10 mg 3-29 tablet by ity of tablet 00:00: mouth 3 [place] 00 (three) Medical times Branch daily. cyclobenzap 0 Yes [id number] 10mg Take 1 Univers rine 10 mg 3-29 tablet by ity of tablet 00:00: mouth 3 [place] 00 (three) Medical times Branch daily. Diclofenac Yes [id number] APPLY 4G Univers Sodium 1 % 3-28 TO ity of gel 00:00: AFFECTED [place] 00 AREAS TWO Medical TIMES A Branch DAY NEEDED FOR PAIN (SCALE 4-6) Diclofenac 0 Yes [id number] APPLY 4G Univers Sodium 1 % 3-28 TO ity of gel 00:00: AFFECTED [place] 00 AREAS TWO Medical TIMES A Branch DAY NEEDED FOR PAIN (SCALE 4-6) Diclofenac 0 Yes [id number] APPLY 4G Univers Sodium 1 % 3-28 TO ity of gel 00:00: AFFECTED [place] 00 AREAS TWO Medical TIMES A Branch DAY NEEDED FOR PAIN (SCALE 4-6) atorvastati 2020-05 Yes [id number] TAKE 1/2 Univers n 20 mg 1-19 (ONE-HALF) ity of tablet 00:00: TABLET BY [place] 00 MOUTH ONCE Medical DAILY Branch atorvastati 2020-05 Yes [id number] TAKE 1/2 Univers n 20 mg 1-19 (ONE-HALF) ity of tablet 00:00: TABLET BY [place] 00 MOUTH ONCE Medical DAILY Branch atorvastati 2020-05 Yes [id number] TAKE 1/2 Univers n 20 mg 1-19 (ONE-HALF) ity of tablet 00:00: TABLET BY [place] 00 MOUTH ONCE Medical DAILY Branch STRESS Yes [id number] Take 1 Univ ers FORMULA 8-30 tablet by ity of WITH ZINC 00:00: mouth once [place] tablet 00 daily Medical Branch STRESS Yes [id number] Take 1 Univ ers FORMULA 8-30 tablet by ity of WITH ZINC 00:00: mouth once [place] tablet 00 daily Medical Branch STRESS 2020-0 Yes [id number] Take 1 Univ ers FORMULA 8-30 tablet by ity of WITH ZINC 00:00: mouth once [place] tablet 00 daily Medical Branch azelastine 2020-0 Yes [id number] 1{spray Use 1 Univers 137 mcg 3-29 } [place] in ity of (0.1 %) 00:00: each [place] nasal spray 00 nostril 2 Med ical (two) Branch times daily. Use in each nostril as directed levocetiriz 2020-0 Yes [id number] 5mg Take 1 Univers ine 5 mg 3-29 tablet by ity of tablet 00:00: mouth [place] 00 every Medical evening. Branch chlorhexidi 2020-0 Yes [id number] 15mL Swish and Univers ne 0.12 % 3-29 spit out ity of mouthwash 00:00: 15 mL 2 [place] 00 (two) Medical times Branch daily. azelastine 2020- Yes [id number] 1{spray Use 1 Univers 137 mcg 3-29 } [place] in ity of (0.1 %) 00:00: each [place] nasal spray 00 nostril 2 Med ical (two) Branch times daily. Use in each nostril as directed levocetiriz 2020-0 Yes [id number] 5mg Take 1 Univers ine 5 mg 3-29 tablet by ity of tablet 00:00: mouth [place] 00 every Medical evening. Branch chlorhexidi 2020-0 Yes [id number] 15mL Swish and Univers ne 0.12 % 3-29 spit out ity of mouthwash 00:00: 15 mL 2 [place] (two) Medical times Branch daily. azelastine 2020-0 Yes [id number] 1{spray Use 1 Univers 137 mcg 3-29 } [place] in ity of (0.1 %) 00:00: each [place] nasal spray 00 nostril 2 Med ical (two) Branch times daily. Use in each nostril as directed levocetiriz 2020-0 Yes [id number] 5mg Take 1 Univers ine 5 mg 3-29 tablet by ity of tablet 00:00: mouth [place] 00 every Medical evening. Branch chlorhexidi 2020-0 Yes [id number] 15mL Swish and Univers ne 0.12 % 3-29 spit out ity of mouthwash 00:00: 15 mL 2 [place] 00 (two) Medical times Branch daily. clobetasoL 2020-0 Yes [id number] Apply to Univers 0.05 % 3-27 area(s) 2 ity of cream 00:00: (two) [place] 00 times Medical daily. Branch clobetasoL 2020-0 Yes [id number] Apply to Univers 0.05 % 3-27 area(s) 2 ity of cream 00:00: (two) [place] 00 times Medical daily. Branch clobetasoL 2020-0 Yes [id number] Apply to Univers 0.05 % 3-27 area(s) 2 ity of cream 00:00: (two) [place] 00 times Medical daily. Branch Immunizations Ordered Filled Immunization Date Status Comments [facility] e Immunization Name Name [facility] 2015-05-22 Completed University of 00:00:[address] [facility] 2015-05-22 Completed University of 00:00:[address] [facility] 2015-05-22 Completed University of 00:00:00 [facility] Influenza Virus 2009-02-06 Completed Universit y of Vaccine 00:00:00 [facility] Influenza Virus 2009-02-06 Completed Universit y of Vaccine 00:00:00 [facility] Influenza Virus 2009-02-06 Completed Universit y of Vaccine 00:00:00 [facility] Procedures This patient has no known procedures. Encounters Start End Encounter Admission Attending Care Care Encounter Source Date/Time Date/Time Type Type Clinicians Facility Department ID 2022-09-03 2022-09-03 Outpatient R DONA [facility] [id number] Univers 15:00:00 15:00:00 CASTILLO mackey o f [facility] 2022-01-16 2022-01-16 Outpatient R RUTH [facility] [id number] Univers 13:40:00 13:40:00 OSIRIS mackey [facility] 2022-01-16 2022-01-16 [id number] Univers 13:40:00 13:40:00 OSIRIS [id number] narendra [facility] 2022-01-08 2022-01-08 [facility] [id number] Univers 00:00:00 00:00:00 Osiris MCCLAIN [id number] ity of [place] [id number] [place] PROFESS[place] [id number] Ri dic[address] 2022-01-01 2022-01-01 Telephone [facility] [id number] [facility] 00:00:00 00:00:00 Osiris MCCLAIN [id number] [facility] [id number] [place] PROF[place] [phone] Ri dic[address] 2021-12-24 2021-12-24 Telephone [facility] [id number] [facility] 00:00:00 00:00:00 Osiris MCCLAIN [id number] ity of [place] [id number] [place] PROFESS[place] [phone] [address] 2020-02-29 2020-02-29 [facility] [id number] 13:34:05 13:54:05 Visit Zairajoshua Mcclain [id number] [place] [id number] Professio [id number] [address] 2020-02-29 2020-02-29 Telephone [facility] [id number] 00:00:00 00:00:00 Magnus Mcclain [id number] [place] [id number] Professio [id number] [facility] 2020-01-30 2020-01-30 Orders Doctor WAQAS [id number] 00:00:00 00:00:00 Only Unassigned, AMIRA [id number] [place] [facility] [id number] [id number] Results This patient has no known results.
--- NOTE | 2022-01-13 14:02 | RAD REPORT ---
EXAM DESCRIPTION: RAD - Abdomen 1 View (KUB) - 01/13/2022 1:12 pm CLINICAL HISTORY: Abdomen pain/constipation FINDINGS: The bowel gas pattern is unremarkable. Moderate amount stool within the colon No significant abnormal calcification is displayed
[2022-01-13] MEDS ORDERED: FLEET ENEMA ADULT PR ONE (15:19)
--- NOTE | 2022-01-13 16:59 | EDPHYS ---
Physician Documentation [facility] Name: Liss Ro Age: 66 yrs Sex: Female : 1955 Arrival Date: 01/13/2022 Time: 11:34 Bed 12 Private MD: ED Physician Lon Anthony HPI: 01/13 12:27 This 66 yrs old Female presents to ER via Ambulatory with complaints of Rectal jmm Pain, Constipation. 12:27 This is a 66-year-old female with history of diabetes mellitus, hypertension, vertigo jmm the presents emerged department with complaints of constipation beginning the eighth of this month. Denies vomiting but states having some nausea. Patient states using MiraLAX with no relief.. Historical: - Allergies: 12:19 Bactrim; aa5 12:19 Codeine; aa5 12:19 Flagyl; aa5 12:19 Morphine; aa5 12:19 Sulfa (Sulfonamide Antibiotics); aa5 12:19 tramadol; aa5 - PMHx: 12:19 Anxiety; Diabetes - IDDM; Herniated disc; Hypertension; Positional Vertigo; PTSD; aa5 - Immunization history:: Adult Immunizations unknown. - Social history:: Smoking status: Patient denies any tobacco usage or history of. ROS: 12:27 Constitutional: Negative for fever, chills, and weight loss, Cardiovascular: Negative jmm for chest pain, palpitations, and edema, Respiratory: Negative for shortness of breath, cough, wheezing, and pleuritic chest pain. 12:27 Abdomen/GI: Positive for constipation. 12:27 All other systems are negative. Exam: 12:27 Constitutional: This is a well developed, well nourished patient who is awake, alert, jmm and in no acute distress. Head/Face: atraumatic. Eyes: EOMI, no conjunctival erythema appreciated ENT: Moist Mucus Membranes Neck: Trachea midline, Supple Chest/axilla: Normal chest wall appearance and motion. Cardiovascular: Regular rate and rhythm. No edema appreciated Respiratory: Normal respirations, no respiratory distress appreciated Abdomen/GI: Non distended Back: Normal ROM 12:27 Skin: General appearance color normal MS/ Extremity: Moves all extremities, no obvious deformities appreciated, no edema noted to the lower extremities Neuro: Awake and alert Psych: Behavior is normal, Mood is normal, Patient is cooperative and pleasant 12:27 Abdomen/GI: Rectal exam: Stool: hard. Vital Signs: 12:15 BP 143 / 68; Pulse 102; Resp 18 S; Temp 97.7(TE); Pulse Ox 98% on R/A; aa5 17:25 BP 104 / 61; Pulse 85; Resp 18; Pulse Ox 98% on R/A; em6 MDM: 12:27 Patient medically screened. [facility] 16:58 Data reviewed: vital signs, nurses notes. Counseling: I had a detailed discussion with ash the patient and/or guardian regarding: the historical points, exam findings, and any diagnostic results supporting the discharge/admit diagnosis, the need for outpatient follow up, to return to the emergency department if symptoms worsen or persist or if there are any questions or concerns that arise at home. 21:25 ED course: Disimpaction was performed. Patient tolerated this well. Patient able to m have a good bowel movement after disimpaction with the use of an enema as well.. 01/13 12:27 Order name: Abdomen 1 View (KUB) XRAY; Complete Time: 14:05 [facility] Administered Medications: 15:05 Not Given (not availablee): Magnesium Citrate Liquid 300 ml PO once [facility] 16:38 Drug: Fleet Enema (sodium phosphate) 133 ml Route: WA; em6 17:00 Follow up: Response: No adverse reaction em6 Disposition Summary: 01/13/22 16:58 Discharge Ordered Location: Home [facility] Condition: Stable [facility] Diagnosis - Constipation [facility] Followup: [facility] - With: Private Physician - When: 2 - 3 days - Reason: Recheck today's complaints, Continuance of care, Re-evaluation by your physician Discharge Instructions: - Discharge Summary Sheet [facility] - Constipation, Adult [facility] Forms: - Medication Reconciliation Form [facility] - Thank You Letter [facility] - Antibiotic Education [facility] - Prescription Opioid Use [facility] Signatures: Dispatcher [employer] EDMS David Terrell PA PA jmm Calderon, Audri, RN RN aa5 Chaparrita Sneed RN RN em6
--- NOTE | 2022-01-13 16:59 | ER ---
Nurse's Notes [facility] Name: Liss Ro Age: 66 yrs Sex: Female : 1955 Arrival Date: 01/13/2022 Time: 11:34 Bed 12 Private MD: Diagnosis: Constipation Presentation: 01/13 12:15 Chief complaint: Patient states: rectal pain and constipation since 01/09/22, last normal aa5 BM was 01/08/22. Pt states "I haven't been able to poop". 12:15 Acuity: MALINI 3 aa5 12:15 Method Of Arrival: Ambulatory aa5 12:15 Coronavirus screen: At this time, the client does not indicate any symptoms associated aa5 with coronavirus-19. Ebola Screen: Patient denies travel to an Ebola-affected area in the 21 days before illness onset. Initial Sepsis Screen: Does the patient meet any 2 criteria? No. Patient's initial sepsis screen is negative. Does the patient have a suspected source of infection? No. Patient's initial sepsis screen is negative. Risk Assessment: Do you want to hurt yourself or someone else? Patient reports no desire to harm self or others. Onset of symptoms was January 2022. Historical: - Allergies: 12:19 Bactrim; aa5 12:19 Codeine; aa5 12:19 Flagyl; aa5 12:19 Morphine; aa5 12:19 Sulfa (Sulfonamide Antibiotics); aa5 12:19 tramadol; aa5 - PMHx: 12:19 Anxiety; Diabetes - IDDM; Herniated disc; Hypertension; Positional Vertigo; PTSD; aa5 - Immunization history:: Adult Immunizations unknown. - Social history:: Smoking status: Patient denies any tobacco usage or history of. Screenin:00 Abuse screen: Denies threats or abuse. Nutritional screening: No deficits noted. em6 Tuberculosis screening: No symptoms or risk factors identified. Fall Risk None identified. Assessment: 14:00 General: Appears in no apparent distress. comfortable, Behavior is calm, cooperative. em6 Pain: Complains of pain in abdomen Pain does not radiate. 14:00 Neuro: Pearl Agitation-Sedation Scale (RASS): 0 - Alert and Calm Level of em6 Consciousness is awake, alert, obeys commands, Oriented to person, place, time, situation. 14:00 Cardiovascular: Capillary refill Patient's skin is warm and dry. Respiratory: Airway is em6 patent Trachea midline Respiratory effort is even, unlabored, Respiratory pattern is regular, symmetrical. GI: Abdomen is non-distended, Abd is soft and non tender X 4 quads. : No signs and/or symptoms were reported regarding the genitourinary system. EENT: No signs and/or symptoms were reported regarding the EENT system. Derm: No signs and/or symptoms reported regarding the dermatologic system. Musculoskeletal: Circulation, motion, and sensation intact. Range of motion: intact in all extremities. 15:00 Reassessment: Patient appears in no apparent distress at this time. No changes from em6 previously documented assessment. Patient and/or family updated on plan of care and expected duration. Pain level reassessed. Patient is alert, oriented x 3, equal unlabored respirations, skin warm/dry/pink. 16:00 Reassessment: No changes from previously documented assessment. Patient and/or family em6 updated on plan of care and expected duration. Pain level reassessed. Patient is alert, oriented x 3, equal unlabored respirations, skin warm/dry/pink. Patient states feeling better. 17:00 Reassessment: Patient appears in no apparent distress at this time. No changes from em6 previously documented assessment. Patient and/or family updated on plan of care and expected duration. Pain level reassessed. Patient is alert, oriented x 3, equal unlabored respirations, skin warm/dry/pink. Vital Signs: 12:15 BP 143 / 68; Pulse 102; Resp 18 S; Temp 97.7(TE); Pulse Ox 98% on R/A; aa5 17:25 BP 104 / 61; Pulse 85; Resp 18; Pulse Ox 98% on R/A; em6 ED Course: 11:34 Patient arrived in ED. rg4 12:15 Arm band placed on. aa5 12:18 Triage completed. aa5 12:18 David Terrell PA is PHCP. jmm 12:18 Lon Anthony MD is Attending Physician. jmm 13:14 Abdomen 1 View (KUB) XRAY In Process Unspecified. EDMS 14:00 Bed in low position. Call light in reach. Side rails up X 1. 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 em6 17:27 Patient did not have IV access during this emergency room visit. em6 Administered Medications: 15:05 Not Given (not availablee): Magnesium Citrate Liquid 300 ml PO once [facility] 16:38 Drug: Fleet Enema (sodium phosphate) 133 ml Route: MD; em6 17:00 Follow up: Response: No adverse reaction em6 Medication: 17:27 VIS not applicable for this client. em6 Outcome: 16:58 Discharge ordered by MD. aleman 17:27 Discharged to home ambulatory. em6 17:27 Condition: stable 17:27 Discharge instructions given to patient, Instructed on discharge instructions, follow up and referral plans. Demonstrated understanding of instructions, follow-up care. 17:27 Patient left the ED. em6 Signatures: Dispatcher [employer] EDMS David Terrell PA PA jmm Calderon, Audri, RN RN aa5 Janeen [email or web address] Chaparrita Sneed RN RN em6 Corrections: (The following items were deleted from the chart) 17:24 14:00 Pain: Complains of pain in abdomen Pain does not radiate. em6 em6
[2022-01-13 18:32] VITALS: TEMP 97.7; O2SAT 98
[2022-01-13 18:34] VITALS: BP 104/61
== END 2022-01-13 17:27 | disposition home or self-care (01) ==
LOC: ER 11:33
DX: K59.00 Constipation, unspecified (principal)
CPT/HCPCS: 74018; 99283

== ENCOUNTER 2023-12-07 14:56 | Emergency (ER) | payer OTHER ==
--- OUTSIDE RECORDS SUMMARY | 2023-12-07 15:05 | XMS REPORT | Continuity of Care Document ---
Author Name Unknown Address [address] [facility] [address] [place] [address] [facility] Address [address] [facility] [address] [place] [address] Care Team Providers Care Sports Equipment Supervisor Name Role Phone RAJNI MOMIN Primary Care Physician Unavaila RAJNI Zimmer Attending Clinician Unavailable MAGNUS MARTIN Attending Clinician UnavailROYCE Leung Attending Clinician Unavailab Royce Wnog MD Attending Clinician [phone] Rajni Momin MD Attending Clinician [phone] 2, [facility] Attending Clinician Unavailable Audrey Bartholomew MA Attending Clinician Unavailab Osiris Cage MD Attending Clinician + [phone] Magnus Martin MD Attending Clinician [phone] Doctor Unassigned, Ida Attending Clinician U giorgioailCASTILLO Arguello Attending Clinician Unavailable SARITA SOLIZ Attending Clinician Unavailable Dayana STANLEY, Jack Attending Clinician [phone] Ava Phillips LMSW Attending Clinician Unava ilable Pob, [facility] Main Attending Clinician UnavailLISS Rubio Attending Clinician Unavaila ble Lab, Ang - Db Attending Clinician Unavailable JAMES HARMON Attending Clinician Unavailable Castillo Guerra MD Attending Clinician [phone] Alexandria Eric LMSW Attending Clinician [phone] OSIRIS MIRANDA Attending Clinician Rain Tobar Attending Clinician [phone] RAIN CALLE Attending Clinician Unavailab Prabha BANKS, Rajni River Attending Clinician [phone] Kaveh Nolan RN Attending Clinician UnavailKeshawn Blackmon Attending Clinician Unavailable Samuel BANKS, Kee Attending Clinician [phone] KEE EDMONDS Attending Clinician Unavailable MARCIAL NORMAN Attending Clinician Unavail able MARCIAL NORMAN Attending Clinician Unavail able Rolando BANKS, Marcial Oquendo Attending Clinician [phone] DIANNE CHOPRA Attending Clinician Unavailab mahsa Vu MD, Sendil K.H. Attending Clinician + [phone] MIRELLA SENDIL K.H. Attending Clinician Unavaila BEATRICE Edwards Attending Clinician Mame Chopra MD, Dianne Puentes Attending Clinician [phone] Nurse, Ang Endo/Diab Attending Clinician Unavail able JACK CHANG Attending Clinician Unavailab YULI Rueda Attending Clinician Unavailabl JUSTNY Park Attending Clinician Unavailabl e PENELOPE JENNINGS Attending Clinician Unavailable SANDEEP MAGANA Attending Clinician Unavail able STEFFEN AKERS Attending Clinician Unavail able STEFFEN AKERS Attending Clinician Unavail able ELISE CARLTON Attending Clinician Unavaila ELISE Beck Attending Clinician Unavaila NOÉ Woods Attending Clinician Unavaila HONG Shields Attending Clinician Unavailable BOO LOZOYA Attending Clinician Unavailable RAJNI MOMIN Admitting Clinician Unavailable RAIN CALLE Admitting Clinician Unavailab mahsa VU, SENDSUPA K.HEulalia Admitting Clinician UnavailOSIRIS Damon Admitting Clinician BOO Schmidt Admitting Clinician Unavailable JUSTYN PHILLIPS Admitting Clinician Unavailcamille bell Payers Payer Name Policy Type Policy Number Effective Date Expirati on Date Source MEDICARE PART A \\T\\ [id number] 2006 00:00:00 [facility] [id number] 2022 00:00:00 2024 00:00:00 Problems Condition Name Condition Details Condition Category Status Onset Date Resolution Date Last Treatment Date Treating Clinician Comments Source Depression , major, recurrent, moderate Depression , major, recurrent, moderate Disease Active 3-27 00:00: 00 [facility] Arthritis, multiple joint involvemen t Arthritis, multiple joint involvemen t Disease Active - 00:00: 00 [facility] 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 Disease Active 01-13 00:00: 00 [facility] Lumbar radiculopa thy Lumbar radiculopa thy Disease Active - 00:00: 00 [facility] Multilevel degenerati ve disc disease Multilevel degenerati ve disc disease Disease Active 5- 00:00: 00 [facility] 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 Disease Active 5- 00:00: 00 [facility] Spinal stenosis of lumbar region without neurogenic claudicati on Spinal stenosis of lumbar region without neurogenic claudicati on Disease Active - 00:00: 00 [facility] Chronic pain syndrome Chronic pain syndrome Disease Active 5-03 00:00: 00 [facility] Anxiety and depression Anxiety and depression Disease Active 5- 00:00: 00 [facility] Chest pain, unspecifie d type Chest pain, unspecifie d type Disease Active 5-03 00:00: 00 [facility] Carotid artery plaque, bilateral Carotid artery plaque, bilateral Disease Active 2021-05 00:00: 00 [facility] Cerebral aneurysm without rupture Cerebral aneurysm without rupture Disease Active 2021-05 00:00: 00 [facility] Arterioven ous abnormalit y of orbit Arterioven ous abnormalit y of orbit Disease Active 16 00:00: 00 [facility] Chronic constipati on Chronic constipati on Disease Active 01-17 00:00: 00 [facility] 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 Disease Active 01-17 00:00: 00 [facility] Hospital discharge follow-up Hospital discharge follow-up Disease Active 01-17 00:00: 00 [facility] Obesity (BMI 30-39.9) Obesity (BMI 30-39.9) Disease Active 08-29 00:00: 00 [facility] DAVIS (obstructi ve sleep apnea) DAVIS (obstructi ve sleep apnea) Disease Active 08-21 00:00: 00 [facility] Vulvar lesion Vulvar lesion Disease Active 05-30 00:00: 00 [facility] Lichen sclerosus Lichen sclerosus Disease Active 05-22 00:00: 00 [facility] Postmenopa usal status Postmenopa usal status Disease Active 05-22 00:00: 00 [facility] Postmenopa usal atrophic vaginitis Postmenopa usal atrophic vaginitis Disease Active 05-22 00:00: 00 [facility] H/O: hysterecto my H/O: hysterecto my Disease Active 05-22 00:00: 00 [facility] Mixed incontinen ce Mixed incontinen ce Disease Active 05-22 00:00: 00 [facility] Obesity Obesity Disease Active 01-16 00:00: 00 Overview: Formattin g of this note might be different from the original. ICD10 Diagnosis Term Newspaper Manager Utility [facility] Elevated alkaline phosphatas e level Elevated alkaline phosphatas e level Disease Active 09-08 00:00: 00 [facility] Dizziness Dizziness Disease Active 2010-05 00:00: 00 [facility] Vertigo of central origin Vertigo of central origin Disease Active 2010-05 00:00: 00 [facility] Gait disturbanc e Gait disturbanc e Disease Active 2010-05 00:00: 00 [facility] BPPV (benign paroxysmal positional vertigo) BPPV (benign paroxysmal positional vertigo) Disease Active 2010-05 00:00: 00 [facility] Vitamin D deficiency Vitamin D deficiency Disease Active 2009-05 00:00: 00 [facility] HLD (hyperlipi demia) HLD (hyperlipi demia) Disease Active 05-09 00:00: 00 Overview: Formattin g of this note might be different from the original. ICD10 Diagnosis Term Newspaper Manager Utility [facility] Other malaise and fatigue Other malaise and fatigue Disease Active 2008-05 00:00: 00 [facility] Hirsutism Hirsutism Disease Active 2008-05 00:00: 00 [facility] Anxiety state Anxiety state Disease Active 12-08 00:00: 00 Overview: Formattin g of this note might be different from the original. ICD10 Diagnosis Term Newspaper Manager Utility [facility] Esophageal reflux Esophageal reflux Disease Active 12-08 00:00: 00 [facility] Chronic depressive personalit y disorder Chronic depressive personalit y disorder Disease Active 12-08 00:00: 00 [facility] Other chronic pain Other chronic pain Disease Active 12-08 00:00: 00 Overview: Formattin g of this note might be different from the original. Lower back [facility] Anxiety Anxiety Disease Active 12-08 00:00: 00 Overview: Formattin g of this note might be different from the original. 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 Lower back [facility] Essential hypertensi on, benign Essential hypertensi on, benign Disease Active 12-08 00:00: 00 [facility] Pain in joint, lower leg Pain in joint, lower leg Disease Active 12-08 00:00: 00 Overview: Formattin g of this note might be different from the original. Knee problem [facility] Diabetes mellitus type 2, uncontroll ed, without complicati ons Diabetes mellitus type 2, uncontroll ed, without complicati ons Disease Active 12-08 00:00: 00 Overview: Formattin g of this note might be different from the original. ICD10 Diagnosis Term Newspaper Manager Utility [facility] Type 2 diabetes mellitus, with long-term current use of insulin Type 2 diabetes mellitus, with long-term current use of insulin Disease Active 12-08 00:00: 00 [facility] Arthritis Arthritis Disease Active [facility] Morbid obesity with body mass index of 40.0-49.9 Morbid obesity with body mass index of 40.0-49.9 Disease Resolve d 07-18 00:00: 00 2020-02-18 00:00:00 2020-02-18 21:19:29 [facility] Morbid obesity with body mass index of 50 or higher Morbid obesity with body mass index of 50 or higher Disease Resolve d 07-18 00:00: 00 2020-02-18 00:00:00 2020-02-18 21:19:30 [facility] Bacterial vaginosis Bacterial vaginosis Disease Resolve d 05-23 00:00: 00 2020-02-18 00:00:00 2020-02-18 21:19:12 [facility] Chest pain Chest pain Disease Resolve d 11-09 00:00: 00 2020-02-18 00:00:00 2020-02-18 21:19:15 [facility] Inflamed seborrheic keratosis Inflamed seborrheic keratosis Disease Resolve d 12-08 00:00: 00 2020-02-18 00:00:00 2020-02-18 21:19:23 [facility] Dizziness and giddiness Dizziness and giddiness Disease Resolve d 12-08 00:00: 00 2020-02-18 00:00:00 2020-02-18 21:19:10 [facility] Vaginal lesion Vaginal lesion Disease Resolve d 05-22 00:00: 00 2015-05-30 00:00:00 2015-05-30 10:35:08 [facility] Allergies, Adverse Reactions, Alerts Allergy Name Allergy Type Status Severity Reaction(s) Onset Date Inactive Date Treating Clinician Comments Source AMOXICIL ALONDRA DRUG INGREDI Active Med Unknown-Cmnt 11-29 00:00: 00 [facility] Amoxicil alondra Propensi ty to adverse reaction s Active Unknown - See comments 11-29 00:00: 00 Blurry vision [facility] MORPHINE DRUG INGREDI Active Anxiety 12-06 00:00: 00 [facility] Morphine Propensi ty to adverse reaction s Active Anxiety 12-06 00:00: 00 [facility] TRAMADOL DRUG INGREDI Active Anxiety 06-24 00:00: 00 [facility] Tramadol Propensi ty to adverse reaction s Active Anxiety 06-24 00:00: 00 Pt felt "weird" [facility] METRONID AZOLE DRUG INGREDI Active Other-Cmnt 05-24 00:00: 00 [facility] Metronid azole Propensi ty to adverse reaction s Active Other - See comments 05-24 00:00: 00 Throat swelling [facility] PROMETHA ZINE HCL DRUG INGREDI Active N/V 05-05 00:00: 00 [facility] Prometha zine Hcl Drug Intolera nce Active Nausea and/or Vomiting 05-05 00:00: 00 [facility] SULFAMET HOXAZOLE -TRIMETH OPRIM DRUG Active Unknown-Cmnt 12-08 00:00: 00 [facility] CODEINE DRUG INGREDI Active Unknown-Cmnt 12-08 00:00: 00 [facility] Sulfamet hoxazole -Trimeth oprim Propensi ty to adverse reaction s Active Unknown - See comments 12-08 00:00: 00 [facility] Codeine Propensi ty to adverse reaction s Active Unknown - See comments 12-08 00:00: 00 Patient states it makes her feel worse, pain increases [facility] Social History Social Habit Start Date Stop Date Quantity Comments Source [facility] Alcoholic beverage intake 2023-11-10 00:00:00 2023-11-10 00:00:00 0 /d [facility] History of Social function 2023-11-06 00:00:00 2023-11-06 00:00:00 [facility] Alcohol intake 2023-07-30 00:00:00 2023-07-30 00:00:00 0 /d [facility] Exposure to SARS-CoV-2 (event) 2022-08-23 00:00:00 2022-09-02 10:27:00 Not sure [facility] Tobacco use and exposure 2022-01-30 00:00:00 2022-01-30 00:00:00 Smokeless tobacco non-user [facility] Sex assigned at 1955 00:00:00 1955 00:00:00 [facility] Smoking Status Start Date Stop Date Source Never smoked tobacco [facility] Medications Ordered Medication Name Filled Medication Name Start Date Stop Date Current Medication? Ordering Clinician Indication Dosage Frequency Signature (SIG) Comments Components Source bevacizumab (AVASTIN) injection 1.25 mg 12-02 16:19: 00 12-02 16:19 :00 No [id number] 1.25mg 1.25 mg, Intravitre al, ONCE PRN, 1 dose, Starting on Thu12/03/23 at 1119, Until Thu12/03/23 at 1119, Routine [facility] cyclobenzap rine 10 mg tablet 11-29 00:00: 00 Yes [id number] TAKE 1 TABLET BY MOUTH IN THE MORNING , THEN TAKE 1 TABLET AT NOON, THEN TAKE 1 TABLET IN THE EVENING [facility] CYCLOBENZAP RINE 10 mg tablet 11-01 00:00: 00 11-29 00:00 :00 No [id number] TAKE 1 TABLET BY MOUTH IN THE MORNING , THEN TAKE 1 TABLET AT NOON, THEN TAKE 1 TABLET IN THE EVENING [facility] bevacizumab (AVASTIN) injection 1.25 mg 10-28 15:58: 00 10-28 15:58 :00 No [id number] 1.25mg 1.25 mg, Intravitre al, ONCE PRN, 1 dose, Starting on Mitzi 10/29/23 at 1058, Until Mitzi 10/29/23 at 1058, Routine [facility] bevacizumab (AVASTIN) injection 1.25 mg 09-30 18:27: 00 09-30 18:27 :00 No [id number] 1.25mg 1.25 mg, Intravitre al, ONCE PRN, 1 dose, Starting on Mitzi 10/01/23 at 1327, Until Mitzi 10/01/23 at 1327, Routine [facility] CYCLOBENZAP RINE 10 mg tablet 09-27 00:00: 00 11-01 00:00 :00 No [id number] TAKE 1 TABLET BY MOUTH IN THE MORNING , THEN TAKE 1 TABLET AT NOON, THEN TAKE 1 TABLET IN THE EVENING [facility] Insulin Glargine (LANTUS SOLOSTAR U-100 INSULIN) 100 unit/mL (3 mL) injection 09-17 00:00: 00 Yes [id number] INJECT 16 UNITS UNDER THE SKIN IN THE MORNING-mu st be the pen [facility] blood sugar diagnostic (ACCU-CHEK GUIDE TEST STRIPS) strip 09-17 00:00: 00 Yes [id number] USE TO CHECK BLOOD GLUCOSE 4X DAILY. DX E11.69 [facility] Lancets (ACCU-CHEK SOFTCLIX LANCETS) Misc 09-17 00:00: 00 Yes [id number] USE 1 TO CHECK GLUCOSE 4 TIMES DAILY [facility] bevacizumab (AVASTIN) injection 1.25 mg 08-12 17:31: 00 08-12 17:31 :00 No [id number] 1.25mg 1.25 mg, Intravitre al, ONCE PRN, 1 dose, Starting on Mitzi 08/13/23 at 1231, Until Mitzi 08/13/23 at 1231, Routine [facility] DULoxetine 30 mg capsule 07-28 00:00: 00 Yes [id number] TAKE 1 CAPSULE BY MOUTH ONCE DAILY FOR ANXIETY, MUST BE SEEN FOR FURTHER REFILLS [facility] gabapentin 100 mg capsule 07-28 00:00: 00 Yes [id number] TAKE 1 CAPSULE BY MOUTH TWICE DAILY NEEDED FOR PAIN ( SCALE 7-10) [facility] lisinopriL 20 mg tablet 07-28 00:00: 00 Yes [id number] TAKE 1 TABLET BY MOUTH TWICE DAILY IN THE MORNING AND IN THE EVENING [facility] lidocaine 5 % ointment 07-28 00:00: 00 Yes [id number] Apply 2g to affected areas BID PRN [facility] insulin lispro (HUMALOG KWIKPEN INSULIN) 100 unit/mL pen injector 07-28 00:00: 00 Yes [id number] INJECT UP TO 18 UNITS UNDER THE SKIN THREE TIMES A DAY ACCORDING TO SLIDING SCALE [facility] famotidine 40 mg tablet 07-28 00:00: 00 Yes [id number] 40mg Take 1 tablet by mouth daily before breakfast. [facility] busPIRone 10 mg tablet 07-28 00:00: 00 Yes [id number] 10mg Take 1 tablet by mouth every morning and evening. [facility] atorvastati n 40 mg tablet 07-28 00:00: 00 Yes [id number] 40mg Take 1 tablet by mouth at bedtime. [facility] amLODIPine 10 mg tablet 07-28 00:00: 00 Yes [id number] 10mg Take 1 tablet by mouth in the morning. [facility] Diclofenac Sodium 1 % gel 07-28 00:00: 00 Yes [id number] APPLY 4 GRAMS TOPICALLY TO AREA(S) 4 TIMES A DAY [facility] fenofibrate 54 mg tablet 07-28 00:00: 00 11-05 00:00 :00 No [id number] 54mg Take 1 tablet by mouth in the morning. [facility] cyclobenzap rine 10 mg tablet 07-28 00:00: 00 09-27 00:00 :00 No [id number] TAKE 1 TABLET BY MOUTH IN THE MORNING , THEN TAKE 1 TABLET AT NOON, THEN TAKE 1 TABLET IN THE EVENING [facility] Insulin Glargine (LANTUS SOLOSTAR U-100 INSULIN) 100 unit/mL (3 mL) injection 07-28 00:00: 00 09-17 00:00 :00 No [id number] INJECT 14 UNITS UNDER THE SKIN IN THE MORNING-mu st be the pen [facility] bevacizumab (AVASTIN) injection 1.25 mg 07-08 16:59: 00 07-08 16:59 :00 No [id number] 1.25mg 1.25 mg, Intravitre al, ONCE PRN, 1 dose, Starting on Mitzi 07/09/23 at 1059, Until Mitzi 324 at 1059, Routine [facility] CYCLOBENZAP RINE 10 mg tablet 07-02 00:00: 00 07-28 00:00 :00 No [id number] TAKE 1 TABLET BY MOUTH IN THE MORNING , THEN TAKE 1 TABLET AT NOON, THEN TAKE 1 TABLET IN THE EVENING [facility] bevacizumab (AVASTIN) injection 1.25 mg 06-04 21:33: 00 06-04 21:33 :00 No [id number] 1.25mg 1.25 mg, Intravitre al, ONCE PRN, 1 dose, Starting on Mitzi 224 at 1533, Until Mitzi 224 at 1533, Routine [facility] ergocalcife rol, vitamin d2, 1,250 mcg (50,000 unit) capsule 06-01 00:00: 00 Yes [id number] Take 1 capsule by mouth weekly. [facility] blood sugar diagnostic (ACCU-CHEK GUIDE TEST STRIPS) strip 05-29 00:00: 00 09-17 00:00 :00 No [id number] USE TO CHECK BLOOD GLUCOSE 4X DAILY. DX E11.69 [facility] DULoxetine 30 mg capsule 05-29 00:00: 00 07-28 00:00 :00 No [id number] TAKE 1 CAPSULE BY MOUTH ONCE DAILY FOR ANXIETY, MUST BE SEEN FOR FURTHER REFILLS [facility] GABAPENTIN 100 mg capsule 1-04 00:00: 00 07-28 00:00 :00 No [id number] TAKE 1 CAPSULE BY MOUTH TWICE DAILY NEEDED FOR PAIN ( SCALE 7-10) [facility] busPIRone 10 mg tablet 2022-05 2-12 00:00: 00 07-28 00:00 :00 No [id number] 10mg TAKE 1 TABLET BY MOUTH IN THE MORNING AND 1 IN THE EVENING [facility] insulin lispro (HUMALOG KWIKPEN INSULIN) 100 unit/mL pen injector 2022-05 00:00: 00 Yes [id number] INJECT UP TO 18 UNITS UNDER THE SKIN THREE TIMES A DAY ACCORDING TO SLIDING SCALE [facility] Insulin Glargine (LANTUS SOLOSTAR U-100 INSULIN) 100 unit/mL (3 mL) injection 2022-05 00:00: 00 Yes [id number] INJECT 14 UNITS UNDER THE SKIN IN THE MORNING [facility] insulin lispro (HUMALOG KWIKPEN INSULIN) 100 unit/mL pen injector 2022-05 00:00: 00 07-28 00:00 :00 No [id number] INJECT UP TO 18 UNITS UNDER THE SKIN THREE TIMES A DAY ACCORDING TO SLIDING SCALE [facility] Insulin Glargine (LANTUS SOLOSTAR U-100 INSULIN) 100 unit/mL (3 mL) injection 2022-05 00:00: 00 07-28 00:00 :00 No [id number] INJECT 14 UNITS UNDER THE SKIN IN THE MORNING [facility] DULOXETINE 30 mg capsule 2022-05 030 00:00: 00 05-29 00:00 :00 No [id number] TAKE 1 CAPSULE BY MOUTH ONCE DAILY FOR ANXIETY [facility] FENOFIBRATE 54 mg tablet 2022-05 00:00: 00 07-28 00:00 :00 No [id number] 54mg TAKE 1 TABLET BY MOUTH IN THE MORNING [facility] AMLODIPINE 10 mg tablet 2022-05 00:00: 00 07-28 00:00 :00 No [id number] 10mg TAKE 1 TABLET BY MOUTH IN THE MORNING [facility] LISINOPRIL 20 mg tablet 2022-05 00:00: 07-28 00:00 :00 No [id number] TAKE 1 TABLET BY MOUTH TWICE DAILY IN THE MORNING AND IN THE EVENING [facility] Lancets (ACCU-CHEK SOFTCLIX LANCETS) Misc 2022-05 0 00:00: 00 09-17 00:00 :00 No [id number] USE 1 TO CHECK GLUCOSE 4 TIMES DAILY [facility] LANTUS SOLOSTAR U-100 INSULIN 100 unit/mL (3 mL) injection 01-22 00:00: 00 03-20 00:00 :00 No [id number] INJECT 14 UNITS UNDER THE SKIN IN THE MORNING [facility] calcium carbonate 500 mg calcium (1,250 mg) tablet 01-13 00:00: 00 Yes [id number] 500mg Take 1 tablet by mouth in the morning. [facility] blood sugar diagnostic (ACCU-CHEK GUIDE TEST STRIPS) strip 7- 00:00: 00 05-29 00:00 :00 No [id number] USE TO CHECK BLOOD GLUCOSE 4X DAILY. DX E11.69 [facility] OMEPRAZOLE 40 mg capsule 10-31 00:00: 00 07-28 00:00 :00 No [id number] 40mg Take 1 capsule by mouth in the morning [facility] FAMOTIDINE 40 mg tablet 10-31 00:00: 00 07-28 00:00 :00 No [id number] TAKE 1 TABLET BY MOUTH IN THE MORNING [facility] DICLOFENAC SODIUM 1 % gel 10-31 00:00: 00 07-28 00:00 :00 No [id number] APPLY 4 GRAMS TOPICALLY TO AREA(S) 4 TIMES A DAY [facility] CYCLOBENZAP RINE 10 mg tablet 10-31 00:00: 00 07-02 00:00 :00 No [id number] TAKE 1 TABLET BY MOUTH IN THE MORNING , THEN TAKE 1 TABLET AT NOON, THEN TAKE 1 TABLET IN THE EVENING [facility] DICLOFENAC SODIUM 1 % gel 10-21 00:00: 00 Yes [id number] APPLY 4 GRAMS TOPICALLY TO AREA(S) 4 TIMES A DAY [facility] amLODIPine 10 mg tablet 09-26 00:00: 00 02-27 00:00 :00 No [id number] 10mg Take 1 tablet by mouth in the morning. [facility] lisinopriL 20 mg tablet 09-26 00:00: 00 02-27 00:00 :00 No [id number] 20mg Take 1 tablet by mouth in the morning and 1 tablet in the evening. Dx: E11.65 [facility] meclizine 25 mg tablet 09-03 13:06: 21 Yes 25mg Take 1 tablet by mouth 3 (three) times daily as needed. [facility] simethicone (GAS-X ORAL) 09-03 13:06: 21 Yes Take by mouth. [facility] ondansetron 4 mg tablet 09-03 13:06: 21 11-05 00:00 :00 No 4mg Take 1 tablet by mouth every 8 (eight) hours as needed. [facility] lidocaine 5 % ointment 09-03 00:00: 00 07-28 00:00 :00 No [id number] Apply 2g to affected areas BID PRN [facility] ergocalcife rol, vitamin d2, 1,250 mcg (50,000 unit) capsule 09-03 00:00: 00 06-01 00:00 :00 No [id number] Take 1 capsule by mouth weekly. [facility] gabapentin 100 mg capsule 09-03 00:00: 05-07 00:00 :00 No [id number] TAKE 1 CAPSULE BY MOUTH TWICE DAILY NEEDED FOR PAIN ( SCALE 7-10) [facility] busPIRone 10 mg tablet 09-03 00:00: 00 04-14 00:00 :00 No [id number] 10mg Take 1 tablet by mouth in the morning and 1 tablet in the evening. [facility] DULoxetine 30 mg capsule 09-03 00:00: 03-02 00:00 :00 No [id number] TAKE 1 CAPSULE BY MOUTH ONCE DAILY FOR ANXIETY [facility] fenofibrate 54 mg tablet 09-03 00:00: 02-27 00:00 :00 No [id number] 54mg Take 1 tablet by mouth in the morning. [facility] cyclobenzap rine 10 mg tablet 09-03 00:00: 10-31 00:00 :00 No [id number] 10mg Take 1 tablet by mouth in the morning and 1 tablet at noon and 1 tablet in the evening. [facility] Diclofenac Sodium (VOLTAREN) 1 % gel 09-03 00:00: 00 10-21 00:00 :00 No [id number] Apply to area(s) 4 (four) times daily. Apply 4 g qid [facility] amLODIPine 10 mg tablet 09-03 00:00: 00 09-26 00:00 :00 No [id number] 10mg Take 1 tablet by mouth in the morning. [facility] lisinopriL 20 mg tablet 09-03 00:00: 00 09-26 00:00 :00 No [id number] 20mg Take 1 tablet by mouth in the morning and 1 tablet in the evening. Dx: E11.65 [facility] Insulin [place], Disposable, (BD MAMI 2ND GEN PEN NEEDLE) 32 gauge x 5/32" Ndle 4-21 00:00: 00 Yes [id number] USE 1 NEEDLE DIRECTED FIVE TIMES DAILY [facility] Insulin [place], Disposable, (BD MAMI 2ND GEN PEN NEEDLE) 32 gauge x 5/32" Ndle 08-22 00:00: 00 Yes [id number] USE 1 NEEDLE DIRECTED FIVE TIMES DAILY [facility] insulin lispro (HUMALOG KWIKPEN INSULIN) 100 unit/mL pen injector 08-22 00:00: 00 Yes [id number] INJECT UP TO 19 UNITS UNDER THE SKIN THREE TIMES A DAY ACCORDING TO SLIDING SCALE [facility] atorvastati n 40 mg tablet 08-22 00:00: 00 07-28 00:00 :00 No [id number] 40mg Take 1 tablet by mouth at bedtime. [facility] insulin lispro (HUMALOG KWIKPEN INSULIN) 100 unit/mL pen injector 08-22 00:00: 00 03-20 00:00 :00 No [id number] INJECT UP TO 19 UNITS UNDER THE SKIN THREE TIMES A DAY ACCORDING TO SLIDING SCALE [facility] lancets (ULTRA THIN LANCETS) 30 gauge Misc 08-22 00:00: 00 02-25 00:00 :00 No [id number] Use as directed to check blood sugars 4 times daily Dx: E11.69 [facility] Insulin Glargine (LANTUS SOLOSTAR U-100 INSULIN) 100 unit/mL (3 mL) injection 08-22 00:00: 00 01-22 00:00 :00 No [id number] 14U inject 14 Units under the skin in the morning. [facility] blood sugar diagnostic (ACCU-CHEK GUIDE TEST STRIPS) strip 08-22 00:00: 00 11-22 00:00 :00 No [id number] USE TO CHECK BLOOD GLUCOSE 3X DAILY. DX E11.69 [facility] blood sugar diagnostic (ACCU-CHEK GUIDE TEST STRIPS) strip 08-20 00:00: 00 08-22 00:00 :00 No [id number] USE TO CHECK BLOOD GLUCOSE 3X DAILY. DX E11.69 [facility] blood sugar diagnostic (ACCU-CHEK GUIDE TEST STRIPS) strip 2023-0 4-14 00:00: 00 Yes [id number] USE DIRECTED 4 TIMES DAILY [facility] Insulin [place], Disposable, (BD MAMI 2ND GEN PEN NEEDLE) 32 gauge x 5/32" Ndle 3- 00:00: 00 08-22 00:00 :00 No [id number] USE 1 NEEDLE DIRECTED FIVE TIMES DAILY [facility] ATORVASTATI N 40 mg tablet 3-06 00:00: 00 08-22 00:00 :00 No [id number] 40mg TAKE 1 TABLET BY MOUTH AT BEDTIME [facility] ERGOCALCIFE ROL, VITAMIN D2, 1,250 mcg (50,000 unit) capsule 07-02 00:00: 00 09-03 00:00 :00 No [id number] Take 1 capsule by mouth once a week [facility] BD MAMI 2ND GEN PEN NEEDLE 32 gauge x 5/32" Ndle 1- 00:00: 00 07-12 00:00 :00 No [id number] USE 1 NEEDLE DIRECTED FIVE TIMES DAILY [facility] busPIRone 10 mg tablet 2021-05 00:00: 00 09-03 00:00 :00 No [id number] 10mg Take 1 tablet by mouth in the morning and 1 tablet in the evening. [facility] cyclobenzap rine 10 mg tablet 2021-05 00:00: 00 09-03 00:00 :00 No [id number] 10mg Take 1 tablet by mouth in the morning and 1 tablet at noon and 1 tablet in the evening. [facility] gabapentin 100 mg capsule 2021-05 00:00: 00 09-03 00:00 :00 No [id number] TAKE 1 CAPSULE BY MOUTH TWICE DAILY NEEDED FOR PAIN ( SCALE 7-10) [facility] fenofibrate 54 mg tablet 2021-05 00:00: 00 09-03 00:00 :00 No [id number] 54mg Take 1 tablet by mouth in the morning. [facility] iopamidol (ISOVUE 300-500 mL) injection 150 mL 2021-05 21:30: 00 04-11 20:31 :00 No [id number] 150mL 150 mL, Intravenou s, ONCE, 1 dose, On Thu04/11/22 at 1530, Routine [facility] heparin 1,000 unit/mL injection 2021-05 19:32: 49 04-11 19:32 :49 No Slow IV Push, PRN, Starting on Thu04/11/22 at 1332, Until Discontinu ed, Routine [facility] nitroglycer in 50 mg in D5W 250 mL infusion RTU 2021-05 19:32: 39 04-11 19:32 :39 No CONTINUOUS PRN, Starting on Thu04/11/22 at 1332 [facility] verapamiL (ISOPTIN) injection 2021-05 19:32: 30 04-11 19:32 :30 No PRN, Starting on Thu04/11/22 at 1332, Until Discontinu ed, Routine [facility] lidocaine 1% (PF) (XYLOCAINE) injection 2021-05 19:32: 02 04-11 19:32 :02 No PRN, Starting on Thu04/11/22 at 1332, Until Discontinu ed, Routine [facility] ondansetron (ZOFRAN (PF)) injection 2021-05 19:02: 00 04-11 19:02 :00 No Slow IV Push, PRN, Starting on Thu04/11/22 at 1302, Until Discontinu ed, Routine [facility] FENTanyl PF (SUBLIMAZE (PF)) injection 2021-05 19:00: 00 04-11 19:00 :00 No Slow IV Push, PRN, Starting on Thu04/11/22 at 1300, Until Discontinu ed, Routine [facility] midazolam (VERSED) injection 2021-05 19:00: 00 04-11 19:00 :00 No IV Push, PRN, Starting on Thu04/11/22 at 1300, Until Discontinu ed, Routine [facility] ERGOCALCIFE ROL, VITAMIN D2, 1,250 mcg (50,000 unit) capsule 2021-05 00:00: 00 07-02 00:00 :00 No [id number] Take 1 capsule by mouth once a week [facility] GABAPENTIN 100 mg capsule 2021-05 00:00: 00 04-23 00:00 :00 No [id number] TAKE 1 CAPSULE BY MOUTH TWICE DAILY NEEDED FOR PAIN ( SCALE 7-10) [facility] lancets (ULTRA THIN LANCETS) 30 gauge Misc 2021-05 00:00: 00 08-22 00:00 :00 No Use as directed to check blood sugars 4 times daily Dx: E11.69 [facility] gabapentin 100 mg capsule 2021-05 00:00: 00 04-07 00:00 :00 No [id number] 100mg Take 1 capsule by mouth 2 (two) times daily as needed for Pain (scale 7-10). [facility] insulin lispro (HUMALOG KWIKPEN INSULIN) 100 unit/mL pen injector 2021-05 0-14 00:00: 00 Yes [id number] INJECT UP TO 19 UNITS UNDER THE SKIN THREE TIMES A DAY ACCORDING TO SLIDING SCALE [facility] Insulin Glargine (LANTUS SOLOSTAR U-100 INSULIN) 100 unit/mL (3 mL) injection 2021-05 0-14 00:00: 00 Yes [id number] 14U inject 14 Units under the skin in the morning. [facility] insulin lispro (HUMALOG KWIKPEN INSULIN) 100 unit/mL pen injector 2021-05 0-14 00:00: 00 08-22 00:00 :00 No [id number] INJECT UP TO 19 UNITS UNDER THE SKIN THREE TIMES A DAY ACCORDING TO SLIDING SCALE [facility] Insulin Glargine (LANTUS SOLOSTAR U-100 INSULIN) 100 unit/mL (3 mL) injection 2021-05 0-14 00:00: 00 08-22 00:00 :00 No [id number] 14U inject 14 Units under the skin in the morning. [facility] blood sugar diagnostic (ACCU-CHEK GUIDE TEST STRIPS) strip 2021-05 0- 00:00: 00 08-15 00:00 :00 No [id number] Use to check blood sugars 4 times daily. Dx E11.69 [facility] blood sugar diagnostic (ACCU-CHEK GUIDE TEST STRIPS) strip 01-31 00:00: 00 02-14 00:00 :00 No Use to check blood sugars 4 times daily. Dx E11.69 [facility] CYCLOBENZAP RINE 10 mg tablet 01-30 00:00: 00 04-23 00:00 :00 No [id number] TAKE 1 TABLET BY MOUTH THREE TIMES DAILY [facility] ondansetron (ZOFRAN) 4 mg tablet 01-17 08:46: 10 Yes 4mg Take 4 mg by mouth every 8 (eight) hours as needed. [facility] meclizine 25 mg tablet 01-17 08:46: 10 Yes 25mg Take 25 mg by mouth 3 (three) times daily as needed. [facility] docusate (COLACE) 100 mg capsule 01-17 00:00: 00 Yes [id number] 100mg Take 1 capsule by mouth 2 (two) times daily as needed for Constipati on. [facility] psyllium husk (METAMUCIL) 0.4 gram Cap 01-17 00:00: 00 04-23 00:00 :00 No [id number] 1{capsu le} Take 1 capsule by mouth daily. [facility] Sennosides 8.6 mg Cap 01-17 00:00: 00 04-23 00:00 :00 No [id number] 1{capsu le} Take 1 capsule by mouth daily. [facility] aspirin 81 mg EC tablet 01-17 00:00: 00 04-23 00:00 :00 No [id number] 81mg Take 1 tablet by mouth in the morning. [facility] atorvastati n 40 mg tablet 2022-0 9-16 00:00: 00 04-13 00:00 :00 No [id number] 40mg Take 1 tablet by mouth at bedtime. [facility] simethicone (GAS-X ORAL) 11-14 15:37: 03 Yes Take by mouth. [facility] polyethylen e glycol 3350 (MIRALAX ORAL) 11-14 15:37: 02 Yes Take by mouth. [facility] dicyclomine 10 mg capsule 11-14 00:00: 00 Yes [id number] 10mg Take 1 capsule by mouth 2 (two) times daily as needed for Other (abdominal pain). Take 10 mg by mouth 2 (two) times daily as needed. [facility] albuterol 90 mcg/actuati on inhaler 11-14 00:00: 00 11-05 00:00 :00 No [id number] INHALE 2 PUFFS BY MOUTH EVERY 6 HOURS NEEDED FOR WHEEZING FOR SHORTNESS OF BREATH [facility] hydrOXYzine 25 mg tablet 11-14 00:00: 00 07-28 00:00 :00 No [id number] 25mg Take 1 tablet by mouth 3 (three) times daily as needed for Itching. [facility] famotidine 40 mg tablet 11-14 00:00: 00 10-31 00:00 :00 No [id number] 40mg Take 1 tablet by mouth in the morning. Get over the counter if not available [facility] omeprazole 40 mg capsule 11-14 00:00: 00 10-31 00:00 :00 No [id number] 40mg Take 1 capsule by mouth in the morning. [facility] DULoxetine 30 mg capsule 11-14 00:00: 00 09-03 00:00 :00 No [id number] TAKE 1 CAPSULE BY MOUTH ONCE DAILY FOR ANXIETY [facility] LANTUS SOLOSTAR U-100 INSULIN 100 unit/mL (3 mL) injection 11-03 00:00: 02-14 00:00 :00 No [id number] INJECT 14 UNITS SUBCUTANEO USLY ONCE DAILY [facility] ergocalcife rol, vitamin d2, (VITAMIN D2) 1,250 mcg (50,000 unit) capsule 10-24 00:00: 00 04-09 00:00 :00 No [id number] Take 1 capsule by mouth weekly. [facility] amLODIPine 10 mg tablet 10-23 00:00: 00 09-03 00:00 :00 No [id number] 10mg Take 1 tablet by mouth daily. [facility] lisinopriL 20 mg tablet 10-23 00:00: 00 09-03 00:00 :00 No [id number] 20mg Take 1 tablet by mouth 2 (two) times daily. Dx: E11.65 [facility] BUSPIRONE 10 mg tablet 10-22 00:00: 00 04-23 00:00 :00 No [id number] Take 1 tablet by mouth twice daily [facility] lancets (ULTRA THIN LANCETS) 30 gauge [facility] [place] 5-13 00:00: 00 04-03 00:00 :00 No Use as directed to check blood sugars 4 times daily for E11.69 [facility] blood sugar diagnostic (ACCU-CHEK GUIDE TEST STRIPS) strip 5-05 00:00: 00 01-31 00:00 :00 No Use to check blood sugars 4 times daily. Dx E11.69 [facility] Lancets (RELION ULTRA THIN PLUS LANCETS) [facility] [place] 4-25 00:00: 00 04-03 00:00 :00 No Use as directed to check blood sugars twice daily for E11.69 30 gauge please [facility] Blood-Gluco se Meter (ACCU-CHEK GUIDE GLUCOSE METER) [facility] [place] 4-21 00:00: 00 Yes Use as directed to check blood sugars for E11.65 [facility] Blood-Gluco se Meter (ACCU-CHEK GUIDE GLUCOSE METER) [facility] [place] 08-22 00:00: 00 Yes Use as directed to check blood sugars for E11.65 [facility] lancets (ONE TOUCH DELICA) 33 gauge [facility] [place] 08-22 00:00: 00 04-03 00:00 :00 No Use as directed to check blood sugars twice daily E11.65 [facility] Insulin [place], Disposable, (MAMI PEN NEEDLE) 32 gauge x 5/32" Ndle 08-09 00:00: 05-08 00:00 :00 No [id number] USE DIRECTED FIVE TIMES A DAY [facility] insulin lispro (HUMALOG KWIKPEN INSULIN) 100 unit/mL pen injector 08-09 00:00: 00 02-14 00:00 :00 No [id number] INJECT UP TO 19 UNITS UNDER THE SKIN THREE TIMES A DAY ACCORDING TO SLIDING SCALE [facility] cyclobenzap rine 10 mg tablet 07-30 00:00: 00 01-30 00:00 :00 No [id number] 10mg Take 1 tablet by mouth 3 (three) times daily. [facility] Diclofenac Sodium 1 % gel 07-29 00:00: 00 09-03 00:00 :00 No [id number] APPLY 4G TO AFFECTED AREAS TWO TIMES A DAY NEEDED FOR PAIN (SCALE 4-6) [facility] Diclofenac Sodium 1 % gel 1- 00:00: 00 06-06 05:59 :00 No [id number] Apply to area(s) 2 (two) times daily as needed for Pain (scale 4-6) for up to 30 days. [facility] ergocalcife rol, vitamin d2, (VITAMIN D2) 1,250 mcg (50,000 unit) capsule 2020-05 00:00: 00 10-24 00:00 :00 No [id number] Take 1 capsule by mouth weekly. [facility] aspirin 81 mg chewable tablet 2020-05 15:13: 36 04-01 00:00 :00 No 81mg Take 81 mg by mouth daily. [facility] cyclobenzap rine 10 mg tablet 2020-05 00:00: 00 07-30 00:00 :00 No [id number] 10mg Take 1 tablet by mouth 2 (two) times daily as needed for Muscle Spasms. [facility] blood sugar diagnostic (ONETOUCH ULTRA TEST) strip 2020-05 00:00: 00 08-09 00:00 :00 No [id number] USE TO CHECK BLOOD SUGAR FOUR TIMES A DAY [facility] atorvastati n 20 mg tablet 2020-05 00:00: 00 01-17 00:00 :00 No [id number] TAKE 1/2 (ONE-HALF) TABLET BY MOUTH ONCE DAILY [facility] Insulin Glargine (LANTUS SOLOSTAR U-100 INSULIN) 100 unit/mL (3 mL) injection 2020-05 00:00: 00 08-09 00:00 :00 No [id number] INJECT 14 UNITS SUBCUTANEO USLY ONCE DAILY [facility] insulin lispro (HUMALOG KWIKPEN INSULIN) 100 unit/mL pen injector 2020-05 00:00: 00 07-22 00:00 :00 No [id number] INJECT UP TO 19 UNITS UNDER THE SKIN THREE TIMES A DAY ACCORDING TO SLIDING SCALE [facility] lancets (ONE TOUCH DELICA) 33 gauge Misc 01-01 00:00: 00 06-03 00:00 :00 No [id number] USE DIRECTED 4 TIMES DAILY [facility] STRESS FORMULA WITH ZINC tablet 12-31 00:00: 00 Yes [id number] Take 1 tablet by mouth once daily [facility] STRESS FORMULA WITH ZINC tablet 12-31 00:00: 00 11-05 00:00 :00 No [id number] Take 1 tablet by mouth once daily [facility] DULoxetine 30 mg capsule 7-20 00:00: 00 10-22 00:00 :00 No [id number] TAKE 1 CAPSULE BY MOUTH ONCE DAILY FOR ANXIETY [facility] busPIRone 10 mg tablet 7-20 00:00: 00 10-22 00:00 :00 No [id number] 10mg Take 1 tablet by mouth 2 (two) times daily. [facility] lisinopriL 20 mg tablet 08-29 00:00: 00 10-23 00:00 :00 No [id number] 20mg Take 1 tablet by mouth 2 (two) times daily. Dx: E11.65 [facility] amLODIPine 10 mg tablet 08-29 00:00: 00 10-23 00:00 :00 No [id number] 10mg Take 1 tablet by mouth daily. [facility] azelastine 137 mcg (0.1 %) nasal spray 07-30 00:00: 00 Yes [id number] 1{spray } Use 1 [place] in each nostril 2 (two) times daily. Use in each nostril as directed [facility] chlorhexidi ne 0.12 % mouthwash 07-30 00:00: 00 Yes [id number] 15mL Swish and spit out 15 mL 2 (two) times daily. [facility] chlorhexidi ne 0.12 % mouthwash 07-30 00:00: 00 Yes [id number] 15mL Swish and spit out 15 mL 2 (two) times daily. [facility] levocetiriz ine 5 mg tablet 07-30 00:00: 00 09-03 00:00 :00 No [id number] 5mg Take 1 tablet by mouth every evening. [facility] mupirocin 2 % ointment 07-30 00:00: 00 11-14 00:00 :00 No [id number] Apply to both nostrils 2x daily after using azelastine nasal spray. Can add saline spray if nose is too dry [facility] famotidine 40 mg tablet 07-30 00:00: 00 11-14 00:00 :00 No [id number] 40mg Take 1 tablet by mouth daily. Get over the counter if not available [facility] pantoprazol e 40 mg EC tablet 3-29 00:00: 00 07-23 00:00 :00 No [id number] 40mg Take 1 tablet by mouth daily. [facility] PROAIR HFA 90 mcg/actuati on inhaler 2-27 00:00: 00 11-14 00:00 :00 No [facility] ergocalcife rol, vitamin d2, (VITAMIN D2) 1,250 mcg (50,000 unit) capsule -17 00:00: 00 05-01 00:00 :00 No [id number] Take 1 capsule by mouth weekly. [facility] albuterol (PROAIR HFA) 90 mcg/actuati on inhaler - 00:00: 00 07-23 00:00 :00 No [id number] 2{puff} Inhale 2 Puffs every 6 (six) hours as needed for Wheezing or Shortness of Breath. [facility] DULoxetine 30 mg capsule - 00:00: 00 10-31 00:00 :00 No [id number] 30mg Take 1 capsule by mouth daily. For anxiety. [facility] amoxicillin -clavulanat e 400-57 mg/5 mL suspension 05-17 00:00: 00 05-28 05:59 :00 No [id number] 880mg Take 11 mL by mouth 2 (two) times daily for 10 days. [facility] dicyclomine 10 mg capsule 2019-05 00:00: 00 11-14 00:00 :00 No 10mg Take 10 mg by mouth 2 (two) times daily as needed. [facility] sucralfate 100 mg/mL suspension 2019-05 00:00: 00 04-01 00:00 :00 No 10mL Take 10 mL by mouth every evening. [facility] famotidine 20 mg tablet 2019-05 00:00: 00 04-01 00:00 :00 No TAKE 1 TABLET BY MOUTH IN THE EVENING [facility] cetirizine- psuedoephed rine (ZYRTEC-D) 5-120 mg per tablet 2019-05 13:43: 42 02-28 00:00 :00 No 1{tbl} Take 1 tablet by mouth 2 (two) times daily. [facility] busPIRone 10 mg tablet 2019-05 00:00: 00 10-31 00:00 :00 No [id number] 10mg Take 1 tablet by mouth 2 (two) times daily. [facility] dicyclomine (BENTYL) 20 mg tablet 2019-05 00:00: 00 05-17 00:00 :00 No [id number] 20mg Take 1 tablet by mouth 4 (four) times daily as needed for Abdominal pain. [facility] DULoxetine 30 mg capsule 2019-05 00:00: 00 05-17 00:00 :00 No [id number] 30mg Take 1 capsule by mouth daily. [facility] pantoprazol e 40 mg EC tablet 01-29 00:00: 00 07-30 00:00 :00 No [id number] 105 40mg Take 1 tablet by mouth daily. [facility] azelastine 137 mcg (0.1 %) nasal spray 01-29 00:00: 00 07-30 00:00 :00 No [id number] 1{spray } Use 1 [place] in each nostril 2 (two) times daily. Use in each nostril as directed [facility] levocetiriz ine 5 mg tablet 01-29 00:00: 00 07-30 00:00 :00 No [id number] 5mg Take 1 tablet by mouth every evening. [facility] mupirocin 2 % ointment 01-29 00:00: 00 07-30 00:00 :00 No [id number] Apply to both nostrils 2x daily after using azelastine nasal spray. Can add saline spray if nose is too dry [facility] famotidine 40 mg tablet 01-29 00:00: 05-17 00:00 :00 No [id number] 105 40mg Take 1 tablet by mouth daily. If not available, get over the counter pepcid (famotidin e) and use 2x 20 mg tablet daily at bedtime [facility] blood sugar diagnostic (ONETOUCH VERIO TEST STRIPS) strip 01-06 00:00: 06-29 00:00 :00 No Use to check blood sugar QID daily. DX:E11.65 [facility] lancets (ONETOUCH DELICA PLUS LANCET) 33 gauge Misc 01-06 00:00: 00 06-29 00:00 :00 No [id number] Use to check blood sugar 4X daily. DX:E11.65 [facility] insulin lispro (HUMALOG KWIKPEN INSULIN) 100 unit/mL pen injector 01-06 00:00: 06-29 00:00 :00 No [id number] Up to 57 units three times daily according to sliding scale DX: E11.65 [facility] Insulin Glargine (LANTUS SOLOSTAR U-100 INSULIN) 100 unit/mL (3 mL) injection 01-06 00:00: 00 06-29 00:00 :00 No [id number] 14U inject 14 Units under the skin daily. DX: E11.65 [facility] insulin lispro (HUMALOG KWIKPEN INSULIN) 100 unit/mL pen injector 01-06 00:00: 00 06-29 00:00 :00 No [id number] Up to 57 units three times daily according to sliding scale DX: E11.65 [facility] vitamin b complex + C + Zinc STRESS FORMULA tablet 08-23 00:00: 00 12-31 00:00 :00 No [id number] 1{tbl} Take 1 tablet by mouth daily. [facility] chlorhexidi ne 0.12 % mouthwash 08-23 00:00: 07-30 00:00 :00 No [id number] 15mL Swish and spit out 15 mL 2 (two) times daily. [facility] Insulin [place], Disposable, (MAMI PEN NEEDLE) 32 gauge x 5/32" Ndle 4-10 00:00: 00 08-09 00:00 :00 No [id number] USE DIRECTED FIVE TIMES A DAY [facility] Insulin [place], Disposable, (MAMI PEN NEEDLE) 32 gauge x 5/32" Ndle 4-10 00:00: 00 08-09 00:00 :00 No [id number] USE DIRECTED FIVE TIMES A DAY [facility] atorvastati n 20 mg tablet 4-10 00:00: 00 03-22 00:00 :00 No [id number] TAKE 1/2 (ONE-HALF) TABLET BY MOUTH ONCE DAILY [facility] lisinopril 20 mg tablet 4-10 00:00: 08-29 00:00 :00 No [id number] 20mg Take 1 tablet by mouth 2 (two) times daily. Dx: E11.65 [facility] amLODIPine 10 mg tablet 4-10 00:00: 00 08-29 00:00 :00 No [id number] 10mg Take 1 tablet by mouth daily. [facility] hydrOXYzine 25 mg tablet 3-30 00:00: 00 11-14 00:00 :00 No [id number] 25mg Take 1 tablet by mouth 3 (three) times daily as needed for Itching. [facility] clobetasoL 0.05 % cream 3-27 00:00: 00 Yes [id number] Apply to area(s) 2 (two) times daily. [facility] Blood-Gluco se Meter (ONETOUCH VERIO IQ METER) Kit 2018-05 00:00: 00 08-22 00:00 :00 No Use to check blood sugar 3X daily. DX:E11.65 [facility] Blood-Gluco se Meter (ONETOUCH VERIO IQ METER) Kit 2019-1 1-13 00:00: 00 08-22 00:00 :00 No Use to check blood sugar 3X daily. DX:E11.65 [facility] cyclobenzap rine 10 mg tablet 2017-05 00:00: 00 04-01 00:00 :00 No 10mg Take 1 tablet by mouth 2 (two) times daily as needed for Muscle Spasms. [facility] DOBUTamine (DOBUTREX) 500 mg in 250mL(Fixed Dose) D5W infusion 12-12 12:56: 55 02-28 18:44 :36 No [id number] 460.5ug /min [facility] chlorhexidi ne 0.12 % mouthwash 09-02 00:00: 00 05-17 00:00 :00 No 5mL Swish and spit out 5 mL daily. [facility] amitriptyli ne (ELAVIL) 10 mg tablet 01-01 00:00: 00 05-30 00:00 :00 No [id number] 10mg Take 1 Tab by mouth at bedtime. [facility] Insulin Glargine (LANTUS SOLOSTAR) 100 unit/mL (3 mL) InPn 12-22 00:00: 00 04-06 00:00 :00 No [id number] 55U inject 55 Units under the skin 2 (two) times daily. [facility] insulin aspart (NOVOLOG FLEXPEN) 100 unit/mL injection 12-22 00:00: 00 04-06 00:00 :00 No [id number] Use three times daily per sliding scale up to 60 units daily [facility] amLODIPine (NORVASC) 10 mg tablet 12-22 00:00: 00 04-06 00:00 :00 No 10mg Take 1 Tab by mouth daily. [facility] lisinopril (PRINIVIL,Z ESTRIL) 20 mg tablet 12-22 00:00: 00 04-02 00:00 :00 No 20mg Take 1 Tab by mouth 2 (two) times daily. [facility] DULoxetine (CYMBALTA) 30 mg capsule 10-03 00:00: 00 05-30 00:00 :00 No 60mg Take 2 Caps by mouth daily. [facility] prazosin (MINIPRES) 2 mg capsule 09-19 00:00: 00 05-30 00:00 :00 No [id number] 2mg Take 1 Cap by mouth at bedtime. [facility] albuterol (PROAIR HFA) 90 mcg/actuati on inhaler 09-05 00:00: 00 05-17 00:00 :00 No [id number] 2{puff} Inhale 2 Puffs every 6 (six) hours as needed for Wheezing or Shortness of Breath (prescribe with aerochambe r (spacer)). [facility] azelastine (ASTELIN) 137 mcg nasal spray 09-05 00:00: 00 07-04 00:00 :00 No [id number] 2{spray } Use 2 Sprays in each nostril 2 (two) times daily. Use in each nostril as directed [facility] montelukast (SINGULAIR) 10 mg tablet 09-05 00:00: 00 12-14 00:00 :00 No [id number] 10mg Take 1 Tab by mouth daily. [facility] levocetiriz ine (XYZAL) 5 mg tablet 09-05 00:00: 00 06-22 00:00 :00 No 5mg Take 1 Tab by mouth every evening. [facility] Insulin [place], Disposable, (BD ULTRAFINE III MINI PEN) 31 x 3/16 " Ndle 06-06 00:00: 00 08-13 00:00 :00 No Use as directed [facility] mupirocin (BACTROBAN) 2 % ointment 2012-05 00:00: 00 05-17 00:00 :00 No [id number] 6 Apply to area(s) 3 (three) times daily. [facility] nystatin (MYCOSTATIN ) 100,000 unit/gram ointment 2012-05 00:00: 00 05-09 00:00 :00 No Apply to area(s) 2 (two) times daily. [facility] butalbital- acetaminoph en-caff (ESGIC) 50-325-40 mg tablet 2012-05 00:00: 00 08-12 00:00 :00 No 1{tbl} Take 1 Tab by mouth every 6 (six) hours as needed for Migraine. [facility] ibuprofen (MOTRIN) 800 mg tablet 08-17 00:00: 00 05-17 00:00 :00 No 1{tbl} Take 1 tablet by mouth once now. OTC [facility] Sodium [place]-Sodi um Chloride (NEILMED SINUS RINSE COMPLETE) Pack 08-09 00:00: 00 05-09 00:00 :00 No Use as directed [facility] HYDROcodone -acetaminop hen (NORCO 5) 5-325 mg tablet 08-06 00:00: 00 05-30 00:00 :00 No 1{tbl} Take 1 Tab by mouth as needed. [facility] meclizine (ANTIVERT) 12.5 mg tablet 05-30 00:00: 00 06-22 00:00 :00 No [id number] 12.5mg Take 1 Tab by mouth 3 (three) times daily as needed for Dizziness (may take two). [facility] metoclopram yudelka (REGLAN) 5 mg/5 mL solution 05-14 00:00: 00 05-30 00:00 :00 No [id number] 5mg Take 5 mL by mouth before meals as needed for Nausea and Vomiting. [facility] Immunizations Ordered Immunization Name Filled Immunization Name Date Status Comments Source TDAP 2015-05-22 00:00:00 Completed [facility] TDAP 2015-05-22 00:00:00 Completed [facility] TDAP 2015-05-22 00:00:00 Completed [facility] TDAP 2015-05-22 00:00:00 Completed [facility] TDAP 2015-05-22 00:00:00 Completed [facility] TDAP 2015-05-22 00:00:00 Completed [facility] TDAP 2015-05-22 00:00:00 Completed [facility] TDAP 2015-05-22 00:00:00 Completed [facility] TDAP 2015-05-22 00:00:00 Completed [facility] TDAP 2015-05-22 00:00:00 Completed [facility] TDAP 2015-05-22 00:00:00 Completed [facility] TDAP 2015-05-22 00:00:00 Completed [facility] TDAP 2015-05-22 00:00:00 Completed [facility] TDAP 2015-05-22 00:00:00 Completed [facility] TDAP 2015-05-22 00:00:00 Completed [facility] TDAP 2015-05-22 00:00:00 Completed [facility] TDAP 2015-05-22 00:00:00 Completed [facility] TDAP 2015-05-22 00:00:00 Completed [facility] TDAP 2015-05-22 00:00:00 Completed [facility] TDAP 2015-05-22 00:00:00 Completed [facility] TDAP 2015-05-22 00:00:00 Completed [facility] TDAP 2015-05-22 00:00:00 Completed [facility] TDAP 2015-05-22 00:00:00 Completed [facility] TDAP 2015-05-22 00:00:00 Completed [facility] TDAP 2015-05-22 00:00:00 Completed [facility] TDAP 2015-05-22 00:00:00 Completed [facility] TDAP 2015-05-22 00:00:00 Completed [facility] TDAP 2015-05-22 00:00:00 Completed [facility] TDAP 2015-05-22 00:00:00 Completed [facility] TDAP 2015-05-22 00:00:00 Completed [facility] TDAP 2015-05-22 00:00:00 Completed [facility] TDAP 2015-05-22 00:00:00 Completed [facility] TDAP 2015-05-22 00:00:00 Completed [facility] TDAP 2015-05-22 00:00:00 Completed [facility] TDAP 2015-05-22 00:00:00 Completed [facility] TDAP 2015-05-22 00:00:00 Completed [facility] TDAP 2015-05-22 00:00:00 Completed [facility] TDAP 2015-05-22 00:00:00 Completed [facility] TDAP 2015-05-22 00:00:00 Completed [facility] TDAP 2015-05-22 00:00:00 Completed [facility] TDAP 2015-05-22 00:00:00 Completed [facility] TDAP 2015-05-22 00:00:00 Completed [facility] TDAP 2015-05-22 00:00:00 Completed [facility] TDAP 2015-05-22 00:00:00 Completed [facility] TDAP 2015-05-22 00:00:00 Completed [facility] TDAP 2015-05-22 00:00:00 Completed [facility] TDAP 2015-05-22 00:00:00 Completed [facility] TDAP 2015-05-22 00:00:00 Completed [facility] TDAP 2015-05-22 00:00:00 Completed [facility] TDAP 2015-05-22 00:00:00 Completed [facility] TDAP 2015-05-22 00:00:00 Completed [facility] TDAP 2015-05-22 00:00:00 Completed [facility] TDAP 2015-05-22 00:00:00 Completed [facility] TDAP 2015-05-22 00:00:00 Completed [facility] TDAP 2015-05-22 00:00:00 Completed [facility] TDAP 2015-05-22 00:00:00 Completed [facility] TDAP 2015-05-22 00:00:00 Completed [facility] TDAP 2015-05-22 00:00:00 Completed [facility] TDAP 2015-05-22 00:00:00 Completed [facility] TDAP 2015-05-22 00:00:00 Completed [facility] TDAP 2015-05-22 00:00:00 Completed [facility] TDAP 2015-05-22 00:00:00 Completed [facility] TDAP 2015-05-22 00:00:00 Completed [facility] TDAP 2015-05-22 00:00:00 Completed [facility] TDAP 2015-05-22 00:00:00 Completed [facility] TDAP 2015-05-22 00:00:00 Completed [facility] TDAP 2015-05-22 00:00:00 Completed [facility] TDAP 2015-05-22 00:00:00 Completed [facility] TDAP 2015-05-22 00:00:00 Completed [facility] TDAP 2015-05-22 00:00:00 Completed [facility] TDAP 2015-05-22 00:00:00 Completed [facility] TDAP 2015-05-22 00:00:00 Completed [facility] TDAP 2015-05-22 00:00:00 Completed [facility] TDAP 2015-05-22 00:00:00 Completed [facility] TDAP 2015-05-22 00:00:00 Completed [facility] TDAP 2015-05-22 00:00:00 Completed [facility] TDAP 2015-05-22 00:00:00 Completed [facility] TDAP 2015-05-22 00:00:00 Completed [facility] TDAP 2015-05-22 00:00:00 Completed [facility] TDAP 2015-05-22 00:00:00 Completed [facility] TDAP 2015-05-22 00:00:00 Completed [facility] TDAP 2015-05-22 00:00:00 Completed [facility] TDAP 2015-05-22 00:00:00 Completed [facility] TDAP 2015-05-22 00:00:00 Completed [facility] TDAP 2015-05-22 00:00:00 Completed [facility] TDAP 2015-05-22 00:00:00 Completed [facility] TDAP 2015-05-22 00:00:00 Completed [facility] TDAP 2015-05-22 00:00:00 Completed [facility] TDAP 2015-05-22 00:00:00 Completed [facility] TDAP 2015-05-22 00:00:00 Completed [facility] TDAP 2015-05-22 00:00:00 Completed [facility] TDAP 2015-05-22 00:00:00 Completed [facility] TDAP 2015-05-22 00:00:00 Completed [facility] TDAP 2015-05-22 00:00:00 Completed [facility] TDAP 2015-05-22 00:00:00 Completed [facility] TDAP 2015-05-22 00:00:00 Completed [facility] TDAP 2015-05-22 00:00:00 Completed [facility] TDAP 2015-05-22 00:00:00 Completed [facility] TDAP 2015-05-22 00:00:00 Completed [facility] TDAP 2015-05-22 00:00:00 Completed [facility] TDAP 2015-05-22 00:00:00 Completed [facility] TDAP 2015-05-22 00:00:00 Completed [facility] TDAP 2015-05-22 00:00:00 Completed [facility] TDAP 2015-05-22 00:00:00 Completed [facility] TDAP 2015-05-22 00:00:00 Completed [facility] TDAP 2015-05-22 00:00:00 Completed [facility] TDAP 2015-05-22 00:00:00 Completed [facility] TDAP 2015-05-22 00:00:00 Completed [facility] TDAP 2015-05-22 00:00:00 Completed [facility] TDAP 2015-05-22 00:00:00 Completed [facility] TDAP 2015-05-22 00:00:00 Completed [facility] TDAP 2015-05-22 00:00:00 Completed [facility] TDAP 2015-05-22 00:00:00 Completed [facility] TDAP 2015-05-22 00:00:00 Completed [facility] TDAP 2015-05-22 00:00:00 Completed [facility] Influenza Virus Vaccine 2009-02-06 00:00:00 Completed [facility] Influenza Virus Vaccine 2009-02-06 00:00:00 Completed [facility] Influenza Virus Vaccine 2009-02-06 00:00:00 Completed [facility] Influenza Virus Vaccine 2009-02-06 00:00:00 Completed [facility] Influenza Virus Vaccine 2009-02-06 00:00:00 Completed [facility] Influenza Virus Vaccine 2009-02-06 00:00:00 Completed [facility] Influenza Virus Vaccine 2009-02-06 00:00:00 Completed [facility] Influenza Virus Vaccine 2009-02-06 00:00:00 Completed [facility] Influenza Virus Vaccine 2009-02-06 00:00:00 Completed [facility] Influenza Virus Vaccine 2009-02-06 00:00:00 Completed [facility] Influenza Virus Vaccine 2009-02-06 00:00:00 Completed [facility] Influenza Virus Vaccine 2009-02-06 00:00:00 Completed [facility] Influenza Virus Vaccine 2009-02-06 00:00:00 Completed [facility] Influenza Virus Vaccine 2009-02-06 00:00:00 Completed [facility] Influenza Virus Vaccine 2009-02-06 00:00:00 Completed [facility] Influenza Virus Vaccine 2009-02-06 00:00:00 Completed [facility] Influenza Virus Vaccine 2009-02-06 00:00:00 Completed [facility] Influenza Virus Vaccine 2009-02-06 00:00:00 Completed [facility] Influenza Virus Vaccine 2009-02-06 00:00:00 Completed [facility] Influenza Virus Vaccine 2009-02-06 00:00:00 Completed [facility] Influenza Virus Vaccine 2009-02-06 00:00:00 Completed [facility] Influenza Virus Vaccine 2009-02-06 00:00:00 Completed [facility] Influenza Virus Vaccine 2009-02-06 00:00:00 Completed [facility] Influenza Virus Vaccine 2009-02-06 00:00:00 Completed [facility] Influenza Virus Vaccine 2009-02-06 00:00:00 Completed [facility] Influenza Virus Vaccine 2009-02-06 00:00:00 Completed [facility] Influenza Virus Vaccine 2009-02-06 00:00:00 Completed [facility] Influenza Virus Vaccine 2009-02-06 00:00:00 Completed [facility] Influenza Virus Vaccine 2009-02-06 00:00:00 Completed [facility] Influenza Virus Vaccine 2009-02-06 00:00:00 Completed [facility] Influenza Virus Vaccine 2009-02-06 00:00:00 Completed [facility] Influenza Virus Vaccine 2009-02-06 00:00:00 Completed [facility] Influenza Virus Vaccine 2009-02-06 00:00:00 Completed [facility] Influenza Virus Vaccine 2009-02-06 00:00:00 Completed [facility] Influenza Virus Vaccine 2009-02-06 00:00:00 Completed [facility] Influenza Virus Vaccine 2009-02-06 00:00:00 Completed [facility] Influenza Virus Vaccine 2009-02-06 00:00:00 Completed [facility] Influenza Virus Vaccine 2009-02-06 00:00:00 Completed [facility] Influenza Virus Vaccine 2009-02-06 00:00:00 Completed [facility] Influenza Virus Vaccine 2009-02-06 00:00:00 Completed [facility] Influenza Virus Vaccine 2009-02-06 00:00:00 Completed [facility] Influenza Virus Vaccine 2009-02-06 00:00:00 Completed [facility] Influenza Virus Vaccine 2009-02-06 00:00:00 Completed [facility] Influenza Virus Vaccine 2009-02-06 00:00:00 Completed [facility] Influenza Virus Vaccine 2009-02-06 00:00:00 Completed [facility] Influenza Virus Vaccine 2009-02-06 00:00:00 Completed [facility] Influenza Virus Vaccine 2009-02-06 00:00:00 Completed [facility] Influenza Virus Vaccine 2009-02-06 00:00:00 Completed [facility] Influenza Virus Vaccine 2009-02-06 00:00:00 Completed [facility] Influenza Virus Vaccine 2009-02-06 00:00:00 Completed [facility] Influenza Virus Vaccine 2009-02-06 00:00:00 Completed [facility] Influenza Virus Vaccine 2009-02-06 00:00:00 Completed [facility] Influenza Virus Vaccine 2009-02-06 00:00:00 Completed [facility] Influenza Virus Vaccine 2009-02-06 00:00:00 Completed [facility] Influenza Virus Vaccine 2009-02-06 00:00:00 Completed [facility] Influenza Virus Vaccine 2009-02-06 00:00:00 Completed [facility] Influenza Virus Vaccine 2009-02-06 00:00:00 Completed [facility] Influenza Virus Vaccine 2009-02-06 00:00:00 Completed [facility] Influenza Virus Vaccine 2009-02-06 00:00:00 Completed [facility] Influenza Virus Vaccine 2009-02-06 00:00:00 Completed [facility] Influenza Virus Vaccine 2009-02-06 00:00:00 Completed [facility] Influenza Virus Vaccine 2009-02-06 00:00:00 Completed [facility] Influenza Virus Vaccine 2009-02-06 00:00:00 Completed [facility] Influenza Virus Vaccine 2009-02-06 00:00:00 Completed [facility] Influenza Virus Vaccine 2009-02-06 00:00:00 Completed [facility] Influenza Virus Vaccine 2009-02-06 00:00:00 Completed [facility] Influenza Virus Vaccine 2009-02-06 00:00:00 Completed [facility] Influenza Virus Vaccine 2009-02-06 00:00:00 Completed [facility] Influenza Virus Vaccine 2009-02-06 00:00:00 Completed [facility] Influenza Virus Vaccine 2009-02-06 00:00:00 Completed [facility] Influenza Virus Vaccine 2009-02-06 00:00:00 Completed [facility] Influenza Virus Vaccine 2009-02-06 00:00:00 Completed [facility] Influenza Virus Vaccine 2009-02-06 00:00:00 Completed [facility] Influenza Virus Vaccine 2009-02-06 00:00:00 Completed [facility] Influenza Virus Vaccine 2009-02-06 00:00:00 Completed [facility] Influenza Virus Vaccine 2009-02-06 00:00:00 Completed [facility] Influenza Virus Vaccine 2009-02-06 00:00:00 Completed [facility] Influenza Virus Vaccine 2009-02-06 00:00:00 Completed [facility] Influenza Virus Vaccine 2009-02-06 00:00:00 Completed [facility] Influenza Virus Vaccine 2009-02-06 00:00:00 Completed [facility] Influenza Virus Vaccine 2009-02-06 00:00:00 Completed [facility] Influenza Virus Vaccine 2009-02-06 00:00:00 Completed [facility] Influenza Virus Vaccine 2009-02-06 00:00:00 Completed [facility] Influenza Virus Vaccine 2009-02-06 00:00:00 Completed [facility] Influenza Virus Vaccine 2009-02-06 00:00:00 Completed [facility] Influenza Virus Vaccine 2009-02-06 00:00:00 Completed [facility] Influenza Virus Vaccine 2009-02-06 00:00:00 Completed [facility] Influenza Virus Vaccine 2009-02-06 00:00:00 Completed [facility] Influenza Virus Vaccine 2009-02-06 00:00:00 Completed [facility] Influenza Virus Vaccine 2009-02-06 00:00:00 Completed [facility] Influenza Virus Vaccine 2009-02-06 00:00:00 Completed [facility] Influenza Virus Vaccine 2009-02-06 00:00:00 Completed [facility] Influenza Virus Vaccine 2009-02-06 00:00:00 Completed [facility] Influenza Virus Vaccine 2009-02-06 00:00:00 Completed [facility] Influenza Virus Vaccine 2009-02-06 00:00:00 Completed [facility] Influenza Virus Vaccine 2009-02-06 00:00:00 Completed [facility] Influenza Virus Vaccine 2009-02-06 00:00:00 Completed [facility] Influenza Virus Vaccine 2009-02-06 00:00:00 Completed [facility] Influenza Virus Vaccine 2009-02-06 00:00:00 Completed [facility] Influenza Virus Vaccine 2009-02-06 00:00:00 Completed [facility] Influenza Virus Vaccine 2009-02-06 00:00:00 Completed [facility] Influenza Virus Vaccine 2009-02-06 00:00:00 Completed [facility] Influenza Virus Vaccine 2009-02-06 00:00:00 Completed [facility] Influenza Virus Vaccine 2009-02-06 00:00:00 Completed [facility] Influenza Virus Vaccine 2009-02-06 00:00:00 Completed [facility] Influenza Virus Vaccine 2009-02-06 00:00:00 Completed [facility] Influenza Virus Vaccine 2009-02-06 00:00:00 Completed [facility] Influenza Virus Vaccine 2009-02-06 00:00:00 Completed [facility] Influenza Virus Vaccine 2009-02-06 00:00:00 Completed [facility] Influenza Virus Vaccine 2009-02-06 00:00:00 Completed [facility] Influenza Virus Vaccine 2009-02-06 00:00:00 Completed [facility] Influenza Virus Vaccine 2009-02-06 00:00:00 Completed [facility] Influenza Virus Vaccine 2009-02-06 00:00:00 Completed [facility] Influenza Virus Vaccine 2009-02-06 00:00:00 Completed [facility] Influenza Virus Vaccine 2009-02-06 00:00:00 Completed [facility] Influenza Virus Vaccine 2009-02-06 00:00:00 Completed [facility] Influenza Virus Vaccine Unknown Completed [facility] TDAP Unknown Completed [facility] Influenza Virus Vaccine Unknown Completed [facility] TDAP Unknown Completed [facility] Influenza Virus Vaccine Unknown Completed [facility] TDAP Unknown Completed [facility] Influenza Virus Vaccine Unknown Completed [facility] TDAP Unknown Completed [facility] Influenza Virus Vaccine Unknown Completed [facility] TDAP Unknown Completed [facility] Influenza Virus Vaccine Unknown Completed [facility] TDAP Unknown Completed [facility] Influenza Virus Vaccine Unknown Completed [facility] TDAP Unknown Completed [facility] Influenza Virus Vaccine Unknown Completed [facility] TDAP Unknown Completed [facility] Influenza Virus Vaccine Unknown Completed [facility] TDAP Unknown Completed [facility] Influenza Virus Vaccine Unknown Completed [facility] TDAP Unknown Completed [facility] Influenza Virus Vaccine Unknown Completed [facility] TDAP Unknown Completed [facility] Influenza Virus Vaccine Unknown Completed [facility] TDAP Unknown Completed [facility] Influenza Virus Vaccine Unknown Completed [facility] TDAP Unknown Completed [facility] Influenza Virus Vaccine Unknown Completed [facility] TDAP Unknown Completed [facility] Influenza Virus Vaccine Unknown Completed [facility] TDAP Unknown Completed [facility] Influenza Virus Vaccine Unknown Completed [facility] TDAP Unknown Completed [facility] Influenza Virus Vaccine Unknown Completed [facility] TDAP Unknown Completed [facility] Influenza Virus Vaccine Unknown Completed [facility] TDAP Unknown Completed [facility] Influenza Virus Vaccine Unknown Completed [facility] TDAP Unknown Completed [facility] Influenza Virus Vaccine Unknown Completed [facility] TDAP Unknown Completed [facility] Influenza Virus Vaccine Unknown Completed [facility] TDAP Unknown Completed [facility] Influenza Virus Vaccine Unknown Completed [facility] TDAP Unknown Completed [facility] Influenza Virus Vaccine Unknown Completed [facility] TDAP Unknown Completed [facility] Influenza Virus Vaccine Unknown Completed [facility] TDAP Unknown Completed [facility] Influenza Virus Vaccine Unknown Completed [facility] TDAP Unknown Completed [facility] Influenza Virus Vaccine Unknown Completed [facility] TDAP Unknown Completed [facility] Influenza Virus Vaccine Unknown Completed [facility] TDAP Unknown Completed [facility] Influenza Virus Vaccine Unknown Completed [facility] TDAP Unknown Completed [facility] Influenza Virus Vaccine Unknown Completed [facility] TDAP Unknown Completed [facility] Influenza Virus Vaccine Unknown Completed [facility] TDAP Unknown Completed [facility] Influenza Virus Vaccine Unknown Completed [facility] TDAP Unknown Completed [facility] Influenza Virus Vaccine Unknown Completed [facility] TDAP Unknown Completed [facility] Influenza Virus Vaccine Unknown Completed [facility] TDAP Unknown Completed [facility] Influenza Virus Vaccine Unknown Completed [facility] TDAP Unknown Completed [facility] Influenza Virus Vaccine Unknown Completed [facility] TDAP Unknown Completed [facility] Influenza Virus Vaccine Unknown Completed [facility] TDAP Unknown Completed [facility] Influenza Virus Vaccine Unknown Completed [facility] TDAP Unknown Completed [facility] Influenza Virus Vaccine Unknown Completed [facility] TDAP Unknown Completed [facility] Influenza Virus Vaccine Unknown Completed [facility] TDAP Unknown Completed [facility] Influenza Virus Vaccine Unknown Completed [facility] TDAP Unknown Completed [facility] Influenza Virus Vaccine Unknown Completed [facility] TDAP Unknown Completed [facility] Influenza Virus Vaccine Unknown Completed [facility] TDAP Unknown Completed [facility] Influenza Virus Vaccine Unknown Completed [facility] TDAP Unknown Completed [facility] Influenza Virus Vaccine Unknown Completed [facility] TDAP Unknown Completed [facility] Influenza Virus Vaccine Unknown Completed [facility] TDAP Unknown Completed [facility] Influenza Virus Vaccine Unknown Completed [facility] TDAP Unknown Completed [facility] Influenza Virus Vaccine Unknown Completed [facility] TDAP Unknown Completed [facility] Influenza Virus Vaccine Unknown Completed [facility] TDAP Unknown Completed [facility] Influenza Virus Vaccine Unknown Completed [facility] TDAP Unknown Completed [facility] Influenza Virus Vaccine Unknown Completed [facility] TDAP Unknown Completed [facility] Influenza Virus Vaccine Unknown Completed [facility] TDAP Unknown Completed [facility] Influenza Virus Vaccine Unknown Completed [facility] TDAP Unknown Completed [facility] Influenza Virus Vaccine Unknown Completed [facility] TDAP Unknown Completed [facility] Influenza Virus Vaccine Unknown Completed [facility] TDAP Unknown Completed [facility] Influenza Virus Vaccine Unknown Completed [facility] TDAP Unknown Completed [facility] Influenza Virus Vaccine Unknown Completed [facility] TDAP Unknown Completed [facility] Influenza Virus Vaccine Unknown Completed [facility] TDAP Unknown Completed [facility] Influenza Virus Vaccine Unknown Completed [facility] TDAP Unknown Completed [facility] Influenza Virus Vaccine Unknown Completed [facility] TDAP Unknown Completed [facility] Influenza Virus Vaccine Unknown Completed [facility] TDAP Unknown Completed [facility] Influenza Virus Vaccine Unknown Completed [facility] TDAP Unknown Completed [facility] Influenza Virus Vaccine Unknown Completed [facility] TDAP Unknown Completed [facility] Influenza Virus Vaccine Unknown Completed [facility] TDAP Unknown Completed [facility] Influenza Virus Vaccine Unknown Completed [facility] TDAP Unknown Completed [facility] Influenza Virus Vaccine Unknown Completed [facility] TDAP Unknown Completed [facility] Influenza Virus Vaccine Unknown Completed [facility] TDAP Unknown Completed [facility] Influenza Virus Vaccine Unknown Completed [facility] TDAP Unknown Completed [facility] Influenza Virus Vaccine Unknown Completed [facility] TDAP Unknown Completed [facility] Influenza Virus Vaccine Unknown Completed [facility] TDAP Unknown Completed [facility] Influenza Virus Vaccine Unknown Completed [facility] TDAP Unknown Completed [facility] Influenza Virus Vaccine Unknown Completed [facility] TDAP Unknown Completed [facility] Influenza Virus Vaccine Unknown Completed [facility] TDAP Unknown Completed [facility] Influenza Virus Vaccine Unknown Completed [facility] TDAP Unknown Completed [facility] Influenza Virus Vaccine Unknown Completed [facility] TDAP Unknown Completed [facility] Influenza Virus Vaccine Unknown Completed [facility] TDAP Unknown Completed [facility] Influenza Virus Vaccine Unknown Completed [facility] TDAP Unknown Completed [facility] Influenza Virus Vaccine Unknown Completed [facility] TDAP Unknown Completed [facility] Influenza Virus Vaccine Unknown Completed [facility] TDAP Unknown Completed [facility] Influenza Virus Vaccine Unknown Completed [facility] TDAP Unknown Completed [facility] Influenza Virus Vaccine Unknown Completed [facility] TDAP Unknown Completed [facility] Influenza Virus Vaccine Unknown Completed [facility] TDAP Unknown Completed [facility] Influenza Virus Vaccine Unknown Completed [facility] TDAP Unknown Completed [facility] Vital Signs Vital Name Observation Time Observation Value Comments S ource Body weight 2023-12-03 15:42:00 75.297 kg [facility] BMI 2023-12-03 15:42:00 33.53 kg/m2 [facility] Systolic blood pressure 2023-11-06 18:41:00 125 mm[Hg] [facility] Diastolic blood pressure 2023-11-06 18:41:00 56 mm[Hg] [facility] Heart rate 2023-11-06 18:41:00 80 /min [facility] Body temperature 2023-11-06 18:41:00 36.78 Caroline [facility] Respiratory rate 2023-11-06 18:41:00 18 /min [facility] Body height 2023-11-06 18:41:00 149.9 cm [facility] Body weight 2023-11-06 18:41:00 75.433 kg [facility] BMI 2023-11-06 18:41:00 33.59 kg/m2 [facility] Oxygen saturation in Arterial blood by Pulse oximetry 2023-11-06 18:41:00 97 /min [facility] Systolic blood pressure 2023-11-06 18:43:00 125 mm[Hg] [facility] Diastolic blood pressure 2023-11-06 18:43:00 56 mm[Hg] [facility] Heart rate 2023-11-06 18:43:00 80 /[facility] 2023-11-06 18:43:00 36.78 Caroline [facility] Respiratory rate 2023-11-06 18:43:00 18 /min [facility] Body height 2023-11-06 18:43:00 149.9 cm [facility] Body weight 2023-11-06 18:43:00 75.433 kg [facility] BMI 2023-11-06 18:43:00 33.59 kg/m2 [facility] Oxygen saturation in Arterial blood by Pulse oximetry 2023-11-06 18:43:00 97 /min [facility] Body weight 2023-10-29 15:20:00 76.658 kg [facility] BMI 2023-10-29 15:20:00 34.13 kg/m2 [facility] Body weight 2023-10-01 18:06:00 76.658 kg [facility] BMI 2023-10-01 18:06:00 34.13 kg/m2 [facility] Systolic blood pressure 2023-09-18 16:25:00 121 mm[Hg] [facility] Diastolic blood pressure 2023-09-18 16:25:00 55 mm[Hg] [facility] Heart rate 2023-09-18 16:25:00 70 /min [facility] Body height 2023-09-18 16:25:00 149.9 cm [facility] Body weight 2023-09-18 16:25:00 76.749 kg [facility] BMI 2023-09-18 16:25:00 34.17 kg/m2 [facility] Oxygen saturation in Arterial blood by Pulse oximetry 2023-09-18 16:25:00 98 /min [facility] Systolic blood pressure 2023-07-29 20:48:00 138 mm[Hg] [facility] Diastolic blood pressure 2023-07-29 20:48:00 67 mm[Hg] [facility] Heart rate 2023-07-29 20:48:00 79 /min [facility] Body temperature 2023-07-29 20:48:00 36.44 Caroline [facility] Body height 2023-07-29 20:48:00 149.9 cm [facility] Body weight 2023-07-29 20:48:00 72.938 kg [facility] BMI 2023-07-29 20:48:00 32.48 kg/m2 [facility] Oxygen saturation in Arterial blood by Pulse oximetry 2023-07-29 20:48:00 95 /min [facility] Body weight 2023-07-09 16:24:00 73.029 kg [facility] BMI 2023-07-09 16:24:00 31.44 kg/m2 [facility] Body weight 2023-06-04 21:21:00 73.029 kg [facility] BMI 2023-06-04 21:21:00 31.44 kg/m2 [facility] Body weight 2023-05-14 14:54:00 73.029 kg [facility] BMI 2023-05-14 14:54:00 31.44 kg/m2 [facility] Systolic blood pressure 2023-03-20 16:31:00 135 mm[Hg] [facility] Diastolic blood pressure 2023-03-20 16:31:00 85 mm[Hg] [facility] Heart rate 2023-03-20 16:31:00 81 /min [facility] Respiratory rate 2023-03-20 16:31:00 18 /min [facility] Body height 2023-03-20 16:31:00 152.4 cm [facility] Body weight 2023-03-20 16:31:00 73.437 kg [facility] BMI 2023-03-20 16:31:00 31.62 kg/m2 [facility] Oxygen saturation in Arterial blood by Pulse oximetry 2023-03-20 16:31:00 98 /min [facility] Body weight 2023-01-15 13:35:00 74.844 kg [facility] BMI 2023-01-15 13:35:00 33.33 kg/m2 [facility] Systolic blood pressure 2023-01-13 13:49:00 132 mm[Hg] [facility] Diastolic blood pressure 2023-01-13 13:49:00 61 mm[Hg] [facility] Heart rate 2023-01-13 13:49:00 86 /min [facility] Body temperature 2023-01-13 13:49:00 36.17 Caroline [facility] Respiratory rate 2023-01-13 13:49:00 16 /min [facility] Body height 2023-01-13 13:49:00 149.9 cm [facility] Body weight 2023-01-13 13:49:00 75.116 kg [facility] BMI 2023-01-13 13:49:00 33.45 kg/m2 [facility] Oxygen saturation in Arterial blood by Pulse oximetry 2023-01-13 13:49:00 97 /min [facility] Body weight 2022-10-16 13:49:00 75.751 kg [facility] BMI 2022-10-16 13:49:00 33.73 kg/m2 [facility] Systolic blood pressure 2022-09-03 20:03:00 121 mm[Hg] [facility] Diastolic blood pressure 2022-09-03 20:03:00 64 mm[Hg] [facility] Heart rate 2022-09-03 20:03:00 78 /min [facility] Body height 2022-09-03 20:03:00 149.9 cm [facility] Body weight 2022-09-03 20:03:00 75.932 kg [facility] BMI 2022-09-03 20:03:00 33.81 kg/m2 [facility] Oxygen saturation in Arterial blood by Pulse oximetry 2022-09-03 20:03:00 95 /min [facility] Systolic blood pressure 2022-09-03 18:06:00 117 mm[Hg] [facility] Diastolic blood pressure 2022-09-03 18:06:00 68 mm[Hg] [facility] Heart rate 2022-09-03 18:06:00 80 /min [facility] Respiratory rate 2022-09-03 18:06:00 18 /min [facility] Body height 2022-09-03 18:06:00 152.4 cm [facility] Body weight 2022-09-03 18:06:00 75.751 kg [facility] BMI 2022-09-03 18:06:00 32.61 kg/m2 [facility] Oxygen saturation in Arterial blood by Pulse oximetry 2022-09-03 18:06:00 97 /min [facility] Systolic blood pressure 2022-09-03 18:08:00 117 mm[Hg] [facility] Diastolic blood pressure 2022-09-03 18:08:00 68 mm[Hg] [facility] Heart rate 2022-09-03 18:08:00 80 /min [facility] Respiratory rate 2022-09-03 18:08:00 18 /min [facility] Body height 2022-09-03 18:08:00 152.4 cm [facility] Body weight 2022-09-03 18:08:00 75.751 kg [facility] BMI 2022-09-03 18:08:00 32.61 kg/m2 [facility] Oxygen saturation in Arterial blood by Pulse oximetry 2022-09-03 18:08:00 97 /min [facility] Systolic blood pressure 2022-08-22 19:48:00 127 mm[Hg] [facility] Diastolic blood pressure 2022-08-22 19:48:00 78 mm[Hg] [facility] Heart rate 2022-08-22 19:48:00 88 /min [facility] Body height 2022-08-22 19:48:00 152.4 cm [facility] Body weight 2022-08-22 19:48:00 76.204 kg [facility] BMI 2022-08-22 19:48:00 32.81 kg/m2 [facility] Oxygen saturation in Arterial blood by Pulse oximetry 2022-08-22 19:48:00 97 /min [facility] Body weight 2022-07-10 14:44:00 76.204 [facility] BMI 2022-07-10 14:44:00 33.93 kg/m2 [facility] Systolic blood pressure 2022-04-23 20:39:00 132 mm[Hg] [facility] Diastolic blood pressure 2022-04-23 20:39:00 77 mm[Hg] [facility] Heart rate 2022-04-23 20:39:00 75 /min [facility] Body temperature 2022-04-23 20:39:00 36.44 Caroline [facility] Respiratory rate 2022-04-23 20:39:00 18 /min [facility] Body height 2022-04-23 20:39:00 149.9 cm [facility] Body weight 2022-04-23 20:39:00 76.34 kg [facility] BMI 2022-04-23 20:39:00 33.99 kg/m2 [facility] Oxygen saturation in Arterial blood by Pulse oximetry 2022-04-23 20:39:00 98 /min [facility] Systolic blood pressure 2022-04-11 21:45:00 151 mm[Hg] [facility] Diastolic blood pressure 2022-04-11 21:45:00 71 mm[Hg] [facility] Heart rate 2022-04-11 21:45:00 79 /min [facility] Oxygen saturation in Arterial blood by Pulse oximetry 2022-04-11 21:45:00 97 /min [facility] Respiratory rate 2022-04-11 20:10:00 12 /min [facility] Body temperature 2022-04-11 17:25:00 36.72 Caroline [facility] Body height 2022-04-11 17:25:00 149.9 cm [facility] Body weight 2022-04-11 17:25:00 76.658 kg [facility] BMI 2022-04-11 17:25:00 34.13 kg/m2 [facility] Body weight 2022-04-03 15:03:00 76.658 kg [facility] BMI 2022-04-03 15:03:00 34.13 kg/m2 [facility] Systolic blood pressure 2022-03-31 19:14:00 135 mm[Hg] [facility] Diastolic blood pressure 2022-03-31 19:14:00 76 mm[Hg] [facility] Heart rate 2022-03-31 19:14:00 84 /min [facility] Body height 2022-03-31 19:14:00 149.9 cm [facility] Body weight 2022-03-31 19:14:00 76.975 kg [facility] BMI 2022-03-31 19:14:00 34.28 kg/m2 [facility] Body height 2022-03-10 14:55:00 149.9 cm [facility] Body weight 2022-03-10 14:55:00 77.338 kg [facility] BMI 2022-03-10 14:55:00 34.44 kg/m2 [facility] Sy[facility] 2022-03-03 18:04:00 104 mm[Hg] [facility] Diastolic blood pressure 2022-03-03 18:04:00 57 mm[Hg] [facility] Heart rate 2022-03-03 18:04:00 72 /min [facility] Body temperature 2022-03-03 18:04:00 36.56 Caroline [facility] Body height 2022-03-03 18:04:00 149.9 cm [facility] Body weight 2022-03-03 18:04:00 76.068 kg [facility] BMI 2022-03-03 18:04:00 33.87 kg/m2 [facility] Oxygen saturation in Arterial blood by Pulse oximetry 2022-03-03 18:04:00 96 /min [facility] Systolic blood pressure 2022-02-14 20:25:00 126 mm[Hg] [facility] Diastolic blood pressure 2022-02-14 20:25:00 76 mm[Hg] [facility] Heart rate 2022-02-14 20:25:00 75 /min [facility] Body weight 2022-02-14 20:25:00 77.021 kg [facility] BMI 2022-02-14 20:25:00 34.30 kg/m2 [facility] Oxygen saturation in Arterial blood by Pulse oximetry 2022-02-14 20:25:00 96 /min [facility] Systolic blood pressure 2022-02-10 19:21:00 122 mm[Hg] [facility] Diastolic blood pressure 2022-02-10 19:21:00 70 mm[Hg] [facility] Heart rate 2022-02-10 19:21:00 67 /min [facility] Body weight 2022-02-10 19:21:00 76.204 [facility] BMI 2022-02-10 19:21:00 33.93 kg/m2 [facility] Oxygen saturation in Arterial blood by Pulse oximetry 2022-02-10 19:21:00 99 /min [facility] Body weight 2022-01-30 13:53:00 76.658 kg [facility] BMI 2022-01-30 13:53:00 34.13 kg/m2 [facility] Systolic blood pressure 2022-01-17 15:29:00 140 mm[Hg] [facility] Diastolic blood pressure 2022-01-17 15:29:00 72 mm[Hg] [facility] Heart rate 2022-01-17 15:29:00 86 /[facility] Oxygen saturation in Arterial blood by Pulse oximetry 2022-01-17 15:29:00 99 /min [facility] Respiratory rate 2022-01-17 15:26:00 18 /min [facility] Body temperature 2022-01-17 15:22:00 36.78 Caroline [facility] Body weight 2022-01-17 15:22:00 77.021 kg [facility] BMI 2022-01-17 15:22:00 34.30 kg/m2 [facility] Systolic blood pressure 2022-01-17 13:46:00 119 mm[Hg] [facility] Diastolic blood pressure 2022-01-17 13:46:00 74 mm[Hg] [facility] Heart rate 2022-01-17 13:46:00 84 /min [facility] Body temperature 2022-01-17 13:46:00 36.22 Caroline [facility] Respiratory rate 2022-01-17 13:46:00 18 /min [facility] Body height 2022-01-17 13:46:00 149.9 cm [facility] Body weight 2022-01-17 13:46:00 76.794 kg [facility] BMI 2022-01-17 13:46:00 34.19 kg/m2 [facility] Oxygen saturation in Arterial blood by Pulse oximetry 2022-01-17 13:46:00 98 /min [facility] Procedures Procedure Date / Time Performed Performing Clinician Source OCT, RETINA - OU - BOTH EYES 2023-12-03 16:21:47 Royce Hernández [facility] INTRAVITREAL INJECTION, PHARMACOLOGIC AGENT - OS - LEFT EYE 2023-12-03 16:19:53 Royce Hernández [facility] FREE T4 2023-11-06 20:00:00 Rajni Momin [facility] THYROID STIMULATING HORMONE 2023-11-06 20:00:00 Rajni Momin [facility] COMP. METABOLIC PANEL (50237) 2023-11-06 20:00:00 Rajni Momin [facility] LIPID PANEL (11559)(TOTAL CHOLESTEROL, TRIGLYCERIDES, HDL) 2023-11-06 20:00:00 Rajni Momin [facility] CBC WITH DIFF 2023-11-06 20:00:00 [facility]omin [facility] GLYCOSYLATED HEMOGLOBIN (A1C) 2023-11-06 20:00:00 Rajni Momin [facility] VITAMIN D, 25-OH 2023-11-06 20:00:00 Rajni Momin [facility] FREE T3 2023-11-06 20:00:00 Rajni Momin [facility] OCT, RETINA - OU - BOTH EYES 2023-10-29 15:59:36 Royce Henrández [facility] INTRAVITREAL INJECTION, PHARMACOLOGIC AGENT - OS - LEFT EYE 2023-10-29 15:58:35 Royce Hernández [facility] OCT, RETINA - OU - BOTH EYES 2023-10-01 18:29:49 Royce Hernández [facility] INTRAVITREAL INJECTION, PHARMACOLOGIC AGENT - OS - LEFT EYE 2023-10-01 18:27:55 Royce Hernández [facility] OCT, RETINA - OU - BOTH EYES 2023-09-10 15:28:02 Royce Hernández [facility] OCT, RETINA - OU - BOTH EYES 2023-08-13 17:32:34 Royce Hernández [facility] INTRAVITREAL INJECTION, PHARMACOLOGIC AGENT - OS - LEFT EYE 2023-08-13 17:31:36 Royce Hernández [facility] MR LUMBAR SPINE WO CONTRAST 2023-08-05 15:57:49 Rajni Momin [facility] OCT, RETINA - OU - BOTH EYES 2023-07-09 17:11:52 Royce Hernández [facility] INTRAVITREAL INJECTION, PHARMACOLOGIC AGENT - OS - LEFT EYE 2023-07-09 16:59:12 Royce Hernández [facility] DISCLOSURE AND CONSENT, MEDICAL AND SURGICAL PROCEDURES 2023-07-09 06:01:00 Doctor Unassigned, Ida [facility] OCT, RETINA - OU - BOTH EYES 2023-06-04 21:34:11 Royce Hernández [facility] INTRAVITREAL INJECTION, PHARMACOLOGIC AGENT - OS - LEFT EYE 2023-06-04 21:33:21 Royce Hernández [facility] DISCLOSURE AND CONSENT, MEDICAL AND SURGICAL PROCEDURES 2023-06-04 06:01:00 Doctor Unassigned, Ida [facility] OCT, RETINA - OU - BOTH EYES 2023-05-14 15:53:41 Royce Hernández [facility] PATIENT QUESTIONNAIRE 2023-03-20 06:01:00 Doctor Unassigned, Ida [facility] MEDICATION CORRESPONDENCE 2023-02-11 05:01:00 Do ctor Unassigned, Ida [facility] OCT, RETINA - OU - BOTH EYES 2023-01-15 14:38:04 Royce Hernández [facility] DME/SUPPLY JUSTIFICATION 2022-12-08 05:01:00 Doc tor Unassigned, Ida [facility] OCT, RETINA - OU - BOTH EYES 2022-10-16 14:36:56 Royce Hernández [facility] HOME HEALTH - OTHER 2022-10-09 05:01:00 Doctor Johnny sullivan, Ida [facility] HOME HEALTH - OTHER 2022-10-02 05:01:00 Doctor Johnny sullivan, Ida [facility] DME/SUPPLY JUSTIFICATION 2022-09-19 05:01:00 Doc tor Unassigned, Ida [facility] PATIENT QUESTIONNAIRE 2022-09-08 05:01:00 Doctor Unassigned, Ida [facility] POCT HEMOGLOBIN A1C TEST 2022-08-22 19:55:00 Magnus Martin [facility] CONSENT/REFUSAL FOR DIAGNOSIS AND TREATMENT 2022-08-22 18:48:24 Doctor Unassigned, Ida [facility] PATIENT FINANCIAL POLICY 2022-07-10 14:24:08 Doctor Unassigned, Ida [facility] OU SPECTRALIS OCT MACULA, BOTH EYES 2022-07-10 00:00:00 Cecille Valdez [facility] MEDICATION CORRESPONDENCE 2022-04-24 06:01:00 Do ctor Unassigned, Ida [facility] IR ANGIOGRAM CEREBRAL 2022-04-11 19:55:00 Ilia Calle [facility] POCT GLUCOSE (AUTOMATED) 2022-04-11 18:06:00 Rain Calle [facility] PROTHROMBIN TIME / INR 2022-04-11 17:33:00 Rajni Lucio [facility] OU SPECTRALIS OCT MACULA, BOTH EYES 2022-04-03 00:00:00 Cecille Valdez [facility] EXTERNAL PROVIDER RECORDS 2022-03-13 06:01:00 Do ctor Unassigned, Ida [facility] POCT HEMOGLOBIN A1C TEST 2022-02-14 20:26:00 Magnus Martin [facility] PATIENT QUESTIONNAIRE 2022-02-14 05:01:00 Doctor Unassigned, Ida [facility] OU SPECTRALIS OCT MACULA, BOTH EYES 2022-01-30 00:00:00 Cecille Valdez [facility] DIABETES TESTING REPORTS 2022-01-23 05:01:00 Doc tor Unassigned, Ida [facility] EXTERNAL PROVIDER RECORDS 2022-01-22 05:01:00 Do ctor Unassigned, Ida [facility] TRANSTHORACIC ECHO (TTE) COMPLETE 2022-01-20 18:38:53 Mitchell Vu [facility] Encounters Start Date/Time End Date/Time Encounter Type Admission Type Attending Clinicians Care Facility Care Department Encounter ID Source 2024-05-11 13:20:00 2024-05-11 13:20:00 Outpatient R RAJNI MOMIN [facility] [id number] [facility] 2023-12-03 10:15:00 2023-12-03 11:27:21 Outpatient R ROYCE HERNÁNDEZ [facility] [id number] [facility] 2023-12-03 10:15:00 2023-12-03 10:30:00 Imm/Inj Visit Royce Hernández F [facility] 1.2.840.114 350.1.13.10 4.2.7.2.686 [id number] 136 [id number] [facility] 2023-11-28 00:00:00 2023-11-30 12:08:17 Refill Rajni Momin [facility] N[facility] 1.2.840.114 350.1.13.10 4.2.7.2.686 [id number] 044 [id number] [facility] 2023-11-06 14:45:00 2023-11-06 15:00:47 Retail Field Supervisor Visit 2, Adc Lab Merrill Rajni [facility] 1.2.840.114 350.1.13.10 4.2.7.2.686 [id number] [facility] 2023-11-06 13:40:00 2023-11-06 14:44:23 Office Visit Rajni Momin [facility] NAL BUILDING 1.2.840.114 350.1.13.10 4.2.7.2.686 [id number] 044 [id number] [facility] 2023-11-06 13:20:00 2023-11-06 14:42:08 Outpatient R RAJNI MOMIN [facility] [id number] [facility] 2023-11-06 13:20:00 2023-11-06 14:42:08 Office Visit Rajni Momin [facility] NAL BUILDING 1.2.840.114 350.1.13.10 4.2.7.2.686 [id number] 044 [id number] [facility] 2023-11-02 00:00:00 2023-11-02 13:45:04 Telephone Aureliasp Rajni [facility] 1.2.840.114 350.1.13.10 4.2.7.2.686 [id number] 044 [id number] [facility] 2023-10-30 00:00:00 2023-11-02 08:32:42 Telephone Rajni Momin [facility] 1.2.840.114 350.1.13.10 4.2.7.2.686 [id number] 044 [id number] [facility] 2023-10-29 10:00:00 2023-10-29 11:10:53 Imm/Inj Visit Royce Hernández [facility] 1.840.114 350.1.13.10 4.2.7.2.686 [id number] 136 [id number] [facility] 2023-10-29 10:00:00 2023-10-29 10:00:00 Outpatient R ROYCE HERNÁNDEZ [facility] [id number] [facility] 2023-10-28 00:00:00 2023-10-28 15:52:38 Telephone Rajni Momin [facility] 1..840.114 350.1.13.10 4.2.7.2.686 [id number] [id number] [facility] 2023-10-28 00:00:00 2023-10-28 14:25:59 Pre Visit Outreach Audrey Bartholomew [facility] 1.2840.114 350.1.13.10 4.2.7.2.686 [id number] [facility] 2020-05-20 00:00:00 2023-10-20 02:21:13 Mobile Device Encounter Osiris Miranda [facility] 1.2.840.114 350.1.13.10 4.2.7.2.686 [id number] [facility] 2023-10-15 00:00:00 2023-10-15 08:59:33 Telephone Edem[place]ong, Peter [facility] 1.2.840.114 350.1.13.10 4.2.7.2.686 [id number] [id number] [facility] 2023-10-13 00:00:00 2023-10-13 11:49:20 Telephone Rajni Momin [facility]AHI [facility] 1.2.840.114 350.1.13.10 4.2.7.2.686 [id number] [facility] 2023-10-01 00:00:00 2023-10-01 13:46:[address] [facility] 1.2.840.114 350.1.13.10 4.2.7.2.686 [id number] [id number] [facility] 2023-10-01 13:15:00 2023-10-01 13:30:00 Imm/Inj Visit Royce Hernández [facility] 1.2.840.114 350.1.13.10 4.2.7.2.686 [id number] [facility] 2023-10-01 13:15:00 2023-10-01 13:15:00 Outpatient R ROYCE HERNÁNDEZ [facility] [id number] [facility] 2023-09-28 00:00:00 2023-09-28 11:03:10 Refill Rajni Momin [facility] 1.2.840.114 350.1.13.10 4.2.7.2.686 [id number] [id number] [facility] 2023-09-24 10:30:00 2023-09-24 10:30:00 Outpatient R ROYCE HERNÁNDEZ [facility] [id number] [facility] 2023-09-24 00:00:00 2023-09-24 10:07:29 Telephone Merrill Rajni [facility] 1.0.114 350.1.13.10 4.2.7.2.686 [id number] 044 [id number] [facility] 2023-09-18 11:30:00 2023-09-18 12:12:34 Office Visit Magnus Martin [facility] OFF[facility] 1.20.114 350.1.13.10 4.2.7.2.686 [id number] [facility] 2023-09-18 11:30:00 2023-09-18 12:12:34 Outpatient R MAGNUS MARTIN [facility] [id number] [facility] 2023-08-12 00:00:00 2023-09-12 18:05:01 Patient Secure Msg Doctor Unassigned, Ida [facility] 1..114 350.1.13.10 4.2.7.2.686 [id number] [facility] 2023-09-10 00:00:00 2023-09-10 10:39:19 Letter (Out) Royce Hernández [facility] MULTISPEC [facility]TY [facility] 1.114 350.1.13.10 4.2.7.2.686 [id number] 136 [id number] [facility] 2023-09-10 09:15:00 2023-09-10 10:34:01 Outpatient R ROYCE HERNÁNDEZ [facility] [id number] [facility] 2023-09-10 09:15:00 2023-09-10 09:30:00 Office Visit Royce Hernández [facility] MULTISPEC [facility]TY [facility] 1.114 350.1.13.10 4.2.7.2.686 [id number] 136 [id number] [facility] 2023-09-04 11:00:00 2023-09-04 11:00:00 Outpatient R CASTILLO GUERRA [facility] [id number] [facility] 2023-09-01 10:30:00 2023-09-01 10:30:00 Outpatient R SARITA SOLIZ [facility] [id number] [facility] 2023-08-21 00:00:00 2023-08-21 00:00:00 Telephone Rajni Momin [facility] 1.2.840.114 350.1.13.10 4.2.7.2.686 [id number] [id number] [facility] 2023-08-21 00:00:00 2023-08-21 00:00:00 Telephone Rajni Momin [facility] 1..840.114 350.1.13.10 4.2.7.2.686 [id number] [id number] [facility] 2023-08-13 10:45:00 2023-08-13 12:39:48 Outpatient R ROYCE HERNÁNDEZ [facility] [id number] [facility] 2023-08-13 10:45:00 2023-08-13 11:00:00 Imm/Inj Visit Royce Hernández [facility] 1.840.114 350.1.13.10 4.2.7.2.686 [id number] 136 [id number] [facility] 2023-08-11 00:00:00 2023-08-11 00:00:00 Telephone Jack Chang [facility] 1.2.840.114 350.1.13.10 4.2.7.2.686 [id number] [id number] [facility] 2023-08-10 00:00:00 2023-08-10 00:00:00 Patient Outreach Rajni Momin [facility] 1.2840.114 350.1.13.10 4.2.7.2.686 [id number] [id number] [facility] 2023-08-06 10:00:00 2023-08-06 10:00:00 Outpatient R ROYCE HERNÁNDEZ [facility] [id number] [facility] 2023-08-06 00:00:00 2023-08-06 00:00:00 Telephone Royce Hernández [facility] M[facility] 1.114 350.1.13.10 4.2.7.2.686 [id number] [facility] 2023-08-05 10:16:30 2023-08-05 23:59:00 Outpatient R RAJNI MOMIN [facility] [id number] [facility] 2023-08-05 10:16:30 2023-08-05 23:59:00 Hospital Encounter Rajni Momin [facility] 1..114 350.1.13.10 4.2.7.2.686 [id number] [facility] 2023-08-05 00:00:00 2023-08-05 00:00:00 Patient Outreach Ava Phillips [facility] 1.2.114 350.1.13.10 4.2.7.2.686 [id number] [id number] [facility] 2023-08-05 00:00:00 2023-08-05 00:00:00 Patient Secure Msg Doctor Unassigned, Ida [facility] 1.20.114 350.1.13.10 4.2.7.2.686 [id number] [facility] 2023-08-04 00:00:00 2023-08-04 00:00:00 Patient Outreach Edemekong, Peter [facility] 1.2.840.114 350.1.13.10 4.2.7.2.686 [id number] 044 [id number] [facility] 2023-07-29 15:20:00 2023-07-29 16:55:09 Outpatient R RAJNI MOMIN [facility] [id number] [facility] 2023-07-29 15:20:00 2023-07-29 16:55:09 Office Visit Rajni Momin [facility] 1.2.840.114 350.1.13.10 4.2.7.2.686 [id number] [id number] [facility] 2023-07-29 16:30:00 2023-07-29 16:45:00 Retail Field Supervisor Visit Pob, Adc Lab Main Rajni Momin [facility] 1.2.840.114 350.1.13.10 4.2.7.2.686 [id number] [facility] 2023-07-29 00:00:00 2023-07-29 00:00:00 Telephone Rajni Momin [facility] 1.2.840.114 350.1.13.10 4.2.7.2.686 [id number] 044 [id number] [facility] 2023-07-29 00:00:00 2023-07-29 00:00:00 Telephone Rajni Momin [facility] 1.2.840.114 350.1.13.10 4.2.7.2.686 [id number] [id number] [facility] 2023-07-27 08:45:00 2023-07-27 08:36:09 Outpatient R RAJNI MOMIN [facility] [id number] [facility] 2023-07-23 00:00:00 2023-07-23 00:00:00 Telephone Rajni Momin [facility] 1..840.114 350.1.13.10 4.2.7.2.686 [id number] 044 [id number] [facility] 2023-07-09 10:15:00 2023-07-09 11:17:12 Outpatient R ROYCE HERNÁNDEZ [facility] [id number] [facility] 2023-07-09 10:15:00 2023-07-09 10:30:00 Imm/Inj Visit Royce Hernández [facility] MULTISPEC [facility]ALTY [facility] 1..114 350.1.13.10 4.2.7.2.686 [id number] 136 [id number] [facility] 2023-07-09 00:00:00 2023-07-09 00:00:00 Orders Only Doctor Unassigned, Ida [facility] 1..114 350.1.13.10 4.2.7.2.686 [id number] [facility] 2023-07-02 00:00:00 2023-07-02 00:00:00 Refill Merrill Rajni [facility] 1..840.114 350.1.13.10 4.2.7.2.686 [id number] [id number] [facility] 2023-06-04 14:45:00 2023-06-04 15:58:03 Outpatient R ROYCE HERNÁNDEZ [facility] [id number] [facility] 2023-06-04 14:45:00 2023-06-04 15:00:00 Imm/Inj Visit Royce Hernández [facility] MULTISPEC [facility]ALTY [facility] 1.114 350.1.13.10 4.2.7.2.686 [id number] [facility] 2023-06-04 00:00:00 2023-06-04 00:00:00 Orders Only Doctor Unassigned, Ida [facility] 1.2.840.114 350.1.13.10 4.2.7.2.686 [id number] [facility] 2023-06-02 00:00:00 2023-06-02 00:00:00 [facility] 1.2.840.114 350.1.13.10 4.2.7.2.686 [id number] 220 [id number] [facility] 2023-06-02 00:00:00 2023-06-02 00:00:00 [facility] 1.2.840.114 350.1.13.10 4.2.7.2.686 [id number] 220 [id number] [facility] 2023-06-02 00:00:00 2023-06-02 00:00:00 [facility] 1.2.840.114 350.1.13.10 4.2.7.2.686 [id number] [facility] 2023-06-01 00:00:00 2023-06-01 00:00:00 Telephone Rajni Momin [facility] 1.2.840.114 350.1.13.10 4.2.7.2.686 [id number] [id number] [facility] 2023-05-29 00:00:00 2023-05-29 00:00:00 Refill Rajni Momin [facility] NAL BUILD[facility] 1.2.840.114 350.1.13.10 4.2.7.2.686 [id number] 044 [id number] [facility] 2023-05-28 15:30:00 2023-05-28 15:30:00 Outpatient R ROYCE HERNÁNDEZ [facility] [id number] [facility] 2023-05-28 00:00:00 2023-05-28 00:00:00 Telephone Veronica Magnus [place] [facility]?KATIE [facility] 1.114 350.1.13.10 4.2.7.2.686 [id number] 220 [id number] [facility] 2023-05-22 00:00:00 2023-05-22 00:00:00 Telephone Royce Hernández [facility] MULTISPEC IALTY CENTER [facility] 1.114 350.1.13.10 4.2.7.2.686 [id number] [facility] 2023-05-21 00:00:00 2023-05-21 00:00:00 Telephone Royce Hernández [facility] MULTISPEC [facility] 1.114 350.1.13.10 4.2.7.2.686 [id number] [facility] 2023-05-14 08:45:00 2023-05-14 10:01:43 Outpatient R ROYCE HERNÁNDEZ [facility] [id number] [facility] 2023-05-14 08:45:00 2023-05-14 09:00:00 Office Visit Royce Hernández [facility] MULTISPEC [facility] 1.114 350.1.13.10 4.2.7.2.686 [id number] 136 [id number] [facility] 2023-05-05 00:00:00 2023-05-05 00:00:00 Rajni Perera [facility] 1.114 350.1.13.10 4.2.7.2.686 [id number] [id number] [facility] 2023-04-30 08:40:00 2023-04-30 08:40:00 Outpatient R AURELIADEENARAJNI CORDOVA [facility] [id number] [facility] 2023-04-12 00:00:00 2023-04-12 00:00:00 Refill Rajni Momin [facility] 1.840.114 350.1.13.10 4.2.7.2.686 [id number] [id number] [facility] 2023-03-20 13:30:00 2023-03-20 13:45:00 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, Alfred Martin Magnus [facility]?KATIE [facility] MEDICAL OFFICE BUILDING 1.840.114 350.1.13.10 4.2.7.2.686 [id number] [facility] 2023-03-20 10:30:00 2023-03-20 11:33:56 Outpatient R MAGNUS MARTIN [facility] [id number] [facility] 2023-03-20 10:30:00 2023-03-20 11:33:56 Office Visit Garett Martinin [facility] MEDICAL OFFICE BUILD[facility] 1.840.114 350.1.13.10 4.2.7.2.686 [id number] [facility] 2023-03-20 00:00:00 2023-03-20 00:00:00 Orders Only Doctor Unassigned, Ida [facility] 1.84.114 350.1.13.10 4.2.7.2.686 [id number] [facility] 2023-03-19 08:45:00 2023-03-19 08:45:00 Outpatient R ROYCE HERNÁNDEZ [facility] [id number] [facility] 2023-03-19 00:00:00 2023-03-19 00:00:00 Telephone Magnus Martin [facility] 1.2840.114 350.1.13.10 4.2.7.2.686 [id number] 220 [id number] [facility] 2023-03-18 00:00:00 2023-03-18 00:00:00 Telephone Magnus Martin [facility] 1.2840.114 350.1.13.10 4.2.7.2.686 [id number] 220 [id number] [facility] 2023-02-26 00:00:00 2023-02-26 00:00:00 Refill Rajni Momin [facility] 1.2840.114 350.1.13.10 4.2.7.2.686 [id number] [id number] [facility] 2023-02-24 00:00:00 2023-02-24 00:00:00 Refill Magnus Martin [facility]?KATIE [facility] OFFICE BUILDING 1.2840.114 350.1.13.10 4.2.7.2.686 [id number] 220 [id number] [facility] 2023-02-11 00:00:00 2023-02-11 00:00:00 Orders Only Doctor Unassigned, Ida [facility] 1.2840.114 350.1.13.10 4.2.7.2.686 [id number] [facility] 2023-01-27 00:00:00 2023-01-27 00:00:00 Patient Secure Msg Doctor Unassigned, Ida [facility] 1.2840.114 350.1.13.10 4.2.7.2.686 [id number] [facility] 2023-01-23 12:45:00 2023-01-23 12:45:00 Outpatient R JAMES HARMON [facility] [id number] [facility] 2023-01-19 00:00:00 2023-01-19 00:00:[address] [facility] 1..840.114 350.1.13.10 4.2.7.2.686 [id number] 220 [id number] [facility] 2023-01-15 08:45:00 2023-01-15 09:45:39 Outpatient R ROYCE HERNÁNDEZ [facility] [id number] [facility] 2023-01-15 08:45:00 2023-01-15 09:45:39 Office Visit Royce Hernández [facility] 1.840.114 350.1.13.10 4.2.7.2.686 [id number] [facility] 2023-01-13 09:00:00 2023-01-13 09:54:17 Outpatient R RAJNI MOMIN [facility] [id number] [facility] 2023-01-13 09:00:00 2023-01-13 09:54:17 Office Visit Rajni Momin [facility] 1..840.114 350.1.13.10 4.2.7.2.686 [id number] [id number] [facility] 2023-01-08 10:30:00 2023-01-08 10:45:00 Retail Field Supervisor Visit 2, Adc Lab Rajni Momin [facility] 1..840.114 350.1.13.10 4.2.7.2.686 [id number] [facility] 2023-01-08 10:30:00 2023-01-08 10:30:00 Outpatient R RAJNI MOMIN [facility] [id number] [facility] 2022-12-16 11:00:00 2022-12-16 11:00:00 Outpatient Ann MOMIN RAJNI [facility] [id number] [facility] 2022-12-08 00:00:00 2022-12-08 00:00:00 Orders Only Doctor Unassigned, Ida [facility] 1.2840.114 350.1.13.10 4.2.7.2.686 [id number] [facility] 2022-11-27 00:00:00 2022-11-27 00:00:00 [facility] MEDICAL OFFICE BUILD[facility] 1..840.114 350.1.13.10 4.2.7.2.686 [id number] [facility] 2022-11-26 00:00:00 2022-11-26 00:00:00 Refill Rajni Momin [facility] BUILD[facility] 1..840.114 350.1.13.10 4.2.7.2.686 [id number] 044 [id number] [facility] 2022-11-18 00:00:00 2022-11-18 00:00:00 Telephone Magnus [facility] MED[facility] OFF[facility] BU[facility] 1.840.114 350.1.13.10 4.2.7.2.686 [id number] 220 [id number] [facility] 2022-11-17 00:00:00 2022-11-17 00:00:00 Refill Rajni Momin [facility] BUILD[facility] 1.2.840.114 350.1.13.10 4.2.7.2.686 [id number] 044 [id number] [facility] 2022-11-17 00:00:00 2022-11-17 00:00:00 Refill Magnus Martin [facility] MEDICAL OFFICE BUILDING 1.84114 350.1.13.10 4.2.7.2.686 [id number] 220 [id number] [facility] 2022-10-31 00:00:00 2022-10-31 00:00:00 Refill Osiris Miranda [facility] 1.2.114 350.1.13.10 4.2.7.2.686 [id number] [facility] 2022-10-31 00:00:00 2022-10-31 00:00:00 Refill Rajni Momin [facility] N[facility] BUILDING 1..114 350.1.13.10 4.2.7.2.686 [id number] 044 [id number] [facility] 2022-10-20 00:00:00 2022-10-20 00:00:00 Refill Rajni Momin [facility] BUILD[facility] 1.114 350.1.13.10 4.2.7.2.686 [id number] [id number] [facility] 2022-10-16 08:45:00 2022-10-16 10:33:49 Outpatient R ROYCE HERNÁNDEZ [facility] [id number] [facility] 2022-10-16 08:45:00 2022-10-16 10:33:49 Office Visit Royce Hernández [facility] 1.114 350.1.13.10 4.2.7.2.686 [id number] [facility] 2022-10-09 00:00:00 2022-10-09 00:00:00 Orders Only Doctor Unassigned, Ida [facility] 1.114 350.1.13.10 4.2.7.2.686 [id number] 009 [id number] [facility] 2022-10-02 00:00:00 2022-10-02 00:00:00 Telephone AureliaspRajni [facility] BU[facility] 1.2.840.114 350.1.13.10 4.2.7.2.686 [id number] 044 [id number] [facility] 2022-10-02 00:00:00 2022-10-02 00:00:00 Orders Only Doctor Unassigned, Ida [facility] 1.2.840.114 350.1.13.10 4.2.7.2.686 [id number] 009 [id number] [facility] 2022-09-26 00:00:00 2022-09-26 00:00:00 Refill Zaira Guerramarco arocío [facility] BUILD[facility] 1.2.840.114 350.1.13.10 4.2.7.2.686 [id number] 059 [id number] [facility] 2022-09-26 00:00:00 2022-09-26 00:00:00 Refill Castillo Guerra [facility] 1.2.840.114 350.1.13.10 4.2.7.2.686 [id number] 059 [id number] [facility] 2022-09-26 00:00:00 2022-09-26 00:00:00 Refill Tiffmarco a Rajni [facility] BU[facility] 1.2.840.114 350.1.13.10 4.2.7.2.686 [id number] 044 [id number] [facility] 2022-09-22 00:00:00 2022-09-22 00:00:00 Telephone Merrill Rajni [facility] BU[facility] 1.2.840.114 350.1.13.10 4.2.7.2.686 [id number] 044 [id number] [facility] 2022-09-19 00:00:00 2022-09-19 00:00:00 Orders Only Doctor Unassigned, Ida [facility] 1.2.840.114 350.1.13.10 4.2.7.2.686 [id number] [id number] [facility] 2022-09-08 00:00:00 2022-09-08 00:00:00 Orders Only Doctor Unassigned, Ida [facility] 1.2.840.114 350.1.13.10 4.2.7.2.686 [id number] [id number] [facility] 2022-09-04 00:00:00 2022-09-04 00:00:00 Patient Outreach Alexandria Eric [facility] 1.2.840.114 350.1.13.10 4.2.7.2.686 [id number] 044 [id number] [facility] 2022-09-03 15:00:00 2022-09-03 15:18:27 [facility] 1.2.840.114 350.1.13.10 4.2.7.2.686 [id number] [facility] 2022-09-03 15:00:00 2022-09-03 15:00:00 Outpatient R CASTILLO GUERRA [facility] [id number] [facility] 2022-09-03 13:20:00 2022-09-03 14:00:03 Outpatient R RAJNI MOMIN [facility] [id number] [facility] 2022-09-03 13:20:00 2022-09-03 14:00:03 Office Visit Rajni Momin [facility] 1.2.840.114 350.1.13.10 4.2.7.2.686 [id number] 044 [id number] [facility] 2022-09-03 13:00:00 2022-09-03 13:20:00 Office Visit Aureliashantanuisakmarco aRajni [facility] NAL BUILDING 1.2.840.114 350.1.13.10 4.2.7.2.686 [id number] 044 [id number] [facility] 2022-09-03 00:00:00 2022-09-03 00:00:00 Osiris Rowan [facility] 1.2.840.114 350.1.13.10 4.2.7.2.686 [id number] [facility] 2022-09-03 00:00:00 2022-09-03 00:00:00 Patient Secure Msg Doctor Unassigned, Ida [facility] 1.2.840.114 350.1.13.10 4.2.7.2.686 [id number] [facility] 2022-09-03 00:00:00 2022-09-03 00:00:00 Patient Secure Msg Doctor Unassigned, Ida [facility] 1.2.840.114 350.1.13.10 4.2.7.2.686 [id number] 019 [id number] [facility] 2022-08-29 00:00:00 2022-08-29 00:00:00 Patient Secure Msg Doctor Unassigned, Ida [facility] 1.2.840.114 350.1.13.10 4.2.7.2.686 [id number] [facility] 2022-08-22 14:30:00 2022-08-22 15:31:53 Outpatient R MAGNUS MARTIN [facility] [id number] [facility] 2022-08-22 14:30:00 2022-08-22 15:31:53 Office Visit Magnus Martin [facility]?KATIE JON MEDICAL OFFICE BUILDING 1.2840.114 350.1.13.10 4.2.7.2.686 [id number] 220 [id number] [facility] 2022-08-22 00:00:00 2022-08-22 00:00:00 Orders Only Doctor Unassigned, Ida [facility] 1.2840.114 350.1.13.10 4.2.7.2.686 [id number] [facility] 2022-08-20 00:00:00 2022-08-20 00:00:00 Telephone Veronica Magnus [facility]?KATIE [facility] MEDICAL OFFICE BUILDING 1..114 350.1.13.10 4.2.7.2.686 [id number] 220 [id number] [facility] 2022-08-14 00:00:00 2022-08-14 00:00:00 Refill Veronica Magnus [facility]?KATIE [facility] MEDICAL OFFICE BUILDING 1.84.114 350.1.13.10 4.2.7.2.686 [id number] 220 [id number] [facility] 2022-07-12 00:00:00 2022-07-12 00:00:00 Refill Martin, [facility] MEDICAL OFFICE BUILDING 1.2840.114 350.1.13.10 4.2.7.2.686 [id number] 220 [id number] [facility] 2022-07-10 08:45:00 2022-07-10 09:45:24 Outpatient R ROYCE HERNÁNDEZ [facility] [id number] [facility] 2022-07-10 08:45:00 2022-07-10 09:00:00 Office Visit Royce Hernández [facility] 1.84.114 350.1.13.10 4.2.7.2.686 [id number] [facility] 2022-07-10 00:00:00 2022-07-10 00:00:00 Orders Only Doctor Unassigned, Ida [facility] 1.2.840.114 350.1.13.10 4.2.7.2.686 [id number] [id number] [facility] 2022-07-06 00:00:00 2022-07-06 00:00:00 Refill Rajni M[facility] 1.2.840.114 350.1.13.10 4.2.7.2.686 [id number] 044 [id number] [facility] 2022-07-03 00:00:00 2022-07-03 00:00:00 Refill Rajni Momin [facility] 1.2840.114 350.1.13.10 4.2.7.2.686 [id number] 044 [id number] [facility] 2022-06-30 00:00:00 2022-06-30 00:00:00 Refill Jack Chang [facility] NAL BUILDING 1.2840.114 350.1.13.10 4.2.7.2.686 [id number] 044 [id number] [facility] 2022-05-16 00:00:00 2022-05-16 00:00:00 Telephone Magnus Martin [facility] BY [facility]?KATIE JON MEDICAL OFFICE BUILDING 1.2840.114 350.1.13.10 4.2.7.2.686 [id number] 220 [id number] [facility] 2022-05-07 00:00:00 2022-05-07 00:00:00 Refill Magnus Martin REPLACED BY [facility]?ARONDenise [facility] MEDICAL OFFICE BUILDING 1.2840.114 350.1.13.10 4.2.7.2.686 [id number] 220 [id number] [facility] 2022-04-24 00:00:00 2022-04-24 00:00:00 Orders Only Doctor Unassigned, Ida [facility] 1.2.840.114 350.1.13.10 4.2.7.2.686 [id number] [id number] [facility] 2022-04-23 14:40:00 2022-04-23 15:48:41 Outpatient R AURELIASPRAJNI [facility] [id number] [facility] 2022-04-23 14:40:00 2022-04-23 15:48:41 Office Visit Merrill Rajni [facility] 1.2.840.114 350.1.13.10 4.2.7.2.686 [id number] 044 [id number] [facility] 2022-04-23 00:00:00 2022-04-23 00:00:00 Telephone MerrillRajni [facility] 1.2.840.114 350.1.13.10 4.2.7.2.686 [id number] 044 [id number] [facility] 2022-04-15 14:20:00 2022-04-15 14:20:00 Outpatient R OSIRIS MIRANDA [facility] [id number] [facility] 2022-04-14 00:00:00 2022-04-14 00:00:00 Telephone Rain Calle [facility] MEDICAL OFFICE BUILDING 1.2.840.114 350.1.13.10 4.2.7.2.686 [id number] [facility] 2022-04-11 12:00:00 2022-04-11 23:59:00 Outpatient R RAIN CALLE [facility] [id number] [facility] 2022-04-11 09:54:48 2022-04-11 23:59:00 Hospital Encounter Rain Calle Peter Tze Man Bird, Aricka D Clancy, Connor L [facility] 1.114 350.1.13.10 4.2.7.2.686 [id number] [facility] 2022-04-10 00:00:00 2022-04-10 00:00:00 RefJack Eid [facility] 1..114 350.1.13.10 4.2.7.2.686 [id number] 044 [id number] [facility] 2022-04-07 00:00:00 2022-04-07 00:00:00 Telephone Magnus Martin [facility] 1.114 350.1.13.10 4.2.7.2.686 [id number] 220 [id number] [facility] 2022-04-03 08:45:00 2022-04-03 09:59:31 Outpatient R ROYCE HERNÁNDEZ [facility] [id number] [facility] 2022-04-03 08:45:00 2022-04-03 09:00:00 Office Visit Royce Hernández [facility] 1.114 350.1.13.10 4.2.7.2.686 [id number] [facility] 2022-04-03 00:00:00 2022-04-03 00:00:00 Telephone Magnus Martin [facility] 1.114 350.1.13.10 4.2.7.2.686 [id number] 220 [id number] [facility] 2022-04-03 00:00:00 2022-04-03 00:00:00 Rain Red [facility] MEDICAL OFFICE BUILDING 1.114 350.1.13.10 4.2.7.2.686 [id number] [facility] 2022-04-03 00:00:00 2022-04-03 00:00:00 Refgaby Jack Chang [facility] NAL BUILDING 1.2.840.114 350.1.13.10 4.2.7.2.686 [id number] 044 [id number] [facility] 2022-03-31 13:00:00 2022-03-31 13:15:00 Office Visit Rajni Lucio [facility] OFFICE BUILDING 1.2.840.114 350.1.13.10 4.2.7.2.686 [id number] 196 [id number] [facility] 2022-03-31 13:00:00 2022-03-31 13:00:00 Outpatient R RAJNI LUCIO [facility] [id number] [facility] 2022-03-26 00:00:00 2022-03-26 00:00:00 Telephone Rajni Momin [facility] 1.2.840.114 350.1.13.10 4.2.7.2.686 [id number] 044 [id number] [facility] 2022-03-25 14:30:00 2022-03-25 14:35:06 Retail Field Supervisor Visit 2, Adc Lab Osiris Miranda [facility] 1.2.840.114 350.1.13.10 4.2.7.2.686 [id number] [facility] 2022-03-25 14:30:00 2022-03-25 14:30:00 Outpatient R OSIRIS MIRANDA [facility] [id number] [facility] 2022-03-13 00:00:00 2022-03-13 00:00:00 Orders Only Doctor Unassigned, Ida [facility] 1.2.840.114 350.1.13.10 4.2.7.2.686 [id number] [facility] 2022-03-10 08:30:00 2022-03-10 08:45:00 Office Visit Rain Calle, [facility] OFFICE BUILDING 1.2.840.114 350.1.13.10 4.2.7.2.686 [id number] 196 [id number] [facility] 2022-03-10 08:30:00 2022-03-10 08:30:00 Outpatient Ann [facility] [id number] General acute hospital 2022-03-03 13:00:00 2022-03-03 13:20:54 [facility] [id number] 2022-03-03 13:00:00 2022-03-03 13:20:54 [facility] 1.2.840.114 350.1.13.10 4.2.7.2.686 [id number] [facility] 2022-02-20 00:00:00 2022-02-20 00:00:00 Patient Secure Msg Doctor Unassigned, Ida [facility] 1.2.840.114 350.1.13.10 4.2.7.2.686 [id number] [facility] 2022-02-18 14:20:00 2022-02-18 14:20:00 Outpatient R OSIRIS MIRANDA [facility] [id number] [facility] 2022-02-14 15:30:00 2022-02-14 16:12:26 Outpatient R MAGNUS MARTIN [facility] [id number] [facility] 2022-02-14 15:30:00 2022-02-14 16:12:26 Office Visit Magnus Martin [facility]?KATIE JON MEDICAL OFFICE BUILDING 1.84.114 350.1.13.10 4.2.7.2.686 [id number] 220 [id number] [facility] 2022-02-14 00:00:00 2022-02-14 00:00:00 Orders Only Doctor Unassigned, Ida [facility] 1.84.114 350.1.13.10 4.2.7.2.686 [id number] [facility] 2022-02-10 14:40:00 2022-02-10 15:41:16 Outpatient MARCIAL DUQUE HOWARD [facility] [id number] [facility] 2022-02-10 14:40:00 2022-02-10 15:41:16 Office Visit Marcial Norman [facility] MED[facility] OFF[facility] BUILDING 1.84.114 350.1.13.10 4.2.7.2.686 [id number] [facility] 2022-02-05 13:30:00 2022-02-05 13:30:00 Outpatient DIANNE WHITAKER [facility] [id number] [facility] 2022-02-04 00:00:00 2022-02-04 00:00:[address] [facility] 1.84.114 350.1.13.10 4.2.7.2.686 [id number] [id number] [facility] 2022-02-03 00:00:00 2022-02-03 00:00:00 Telephone [facility] 1.84.114 350.1.13.10 4.2.7.2.686 [id number] 220 [id number] [facility] 2022-02-03 00:00:00 2022-02-03 00:00:00 Telephone Magnus Martin [facility]?KATIE JON MEDICAL OFFICE BUILDING 1.2.840.114 350.1.13.10 4.2.7.2.686 [id number] 220 [id number] [facility] 2022-01-31 00:00:00 2022-01-31 00:00:00 Refill Magnus Martin [facility]?KATIE JON MEDICAL OFFICE BUILDING 1..840.114 350.1.13.10 4.2.7.2.686 [id number] 220 [id number] [facility] 2022-01-30 08:45:00 2022-01-30 09:00:00 Office Visit Royce Hernández [facility] 1..840.114 350.1.13.10 4.2.7.2.686 [id number] [facility] 2022-01-30 08:45:00 2022-01-30 08:45:00 Outpatient R WALESKA HERNÁNDEZCHRIS [facility] [id number] [facility] 2022-01-30 08:45:00 2022-01-30 08:45:00 Outpatient ROYCE KENDALL [facility] [id number] [facility] 2022-01-30 00:00:00 2022-01-30 00:00:00 Telephone Osiris Miranda [facility] NAL BUILDING 1..840.114 350.1.13.10 4.2.7.2.686 [id number] 231 [id number] [facility] 2022-01-29 13:30:00 2022-01-29 13:30:00 Outpatient DIANNE WHITAKER [facility] [id number] [facility] 2022-01-28 00:00:00 2022-01-28 00:00:00 Osiris Rowan [facility] 1.2.840.114 350.1.13.10 4.2.7.2.686 [id number] [facility] 2022-01-23 00:00:00 2022-01-23 00:00:00 Orders Only Doctor Unassigned, Ida [facility] 1.2.840.114 350.1.13.10 4.2.7.2.686 [id number] [id number] [facility] 2022-01-22 00:00:00 2022-01-22 00:00:00 Orders Only Doctor Unassigned, Ida [facility] 1.2.840.114 350.1.13.10 4.2.7.2.686 [id number] [facility] 2022-01-22 00:00:00 2022-01-22 00:00:00 Telephone Mitchell Vu [facility] 1.2840.114 350.1.13.10 4.2.7.2.686 [id number] 059 [id number] [facility] 2022-01-22 00:00:00 2022-01-22 00:00:00 Telephone Mitchell Vu [facility] 1.2840.114 350.1.13.10 4.2.7.2.686 [id number] [facility] 2022-01-20 12:32:51 2022-01-20 23:59:00 Outpatient R MITCHELL VU [facility] [id number] [facility] 2022-01-20 12:32:51 2022-01-20 23:59:00 Hospital Encounter Mitchell Vu [facility] 1.2840.114 350.1.13.10 4.2.7.2.686 [id number] [facility] 2022-01-20 11:00:00 2022-01-20 11:00:00 Outpatient R KEE EDMONDS [facility] [id number] General acute hospital 2022-01-17 10:52:43 2022-01-17 11:54:00 Outpatient R MITCHELL VU [facility] [id number] [facility] 2022-01-17 11:15:00 2022-01-17 11:30:00 Retail Field Supervisor Visit 2, Adc Lab AureliaspRajni [facility] 1.2.840.114 350.1.13.10 4.2.7.2.686 [id number] [facility] 2022-01-17 10:30:00 2022-01-17 10:58:34 Office Visit Mitchell Vu [facility] 1.2.840.114 350.1.13.10 4.2.7.2.686 [id number] [facility] 2022-01-17 09:00:00 2022-01-17 10:02:35 Outpatient R MERRILL RAJNI [facility] [id number] [facility] 2022-01-17 09:00:00 2022-01-17 10:02:35 Office Visit Rajni Momin [facility] 1.2.840.114 350.1.13.10 4.2.7.2.686 [id number] [id number] [facility] 2022-01-16 13:40:00 2022-01-16 13:40:00 Outpatient R OSIRIS MIRANDA [facility] [id number] [facility] 2022-01-08 00:00:00 2022-01-08 00:00:00 Osiris Wang [facility] 1.2.840.114 350.1.13.10 4.2.7.2.686 [id number] [facility] 2022-01-01 00:00:00 2022-01-01 00:00:00 Telephone Osiris Miranda [facility]ESS[facility] NAL BUILDING 1.2.840.114 350.1.13.10 4.2.7.2.686 [id number] 231 [id number] [facility] 2021-12-31 13:10:00 2021-12-31 13:10:00 Outpatient BEATRICE LITTLE [facility] [id number] [facility] 2021-12-30 00:00:00 2021-12-30 00:00:00 Telephone Osiris Miranda [facility] PROFESSIO NAL BUILDING 1.2.840.114 350.1.13.10 4.2.7.2.686 [id number] 231 [id number] [facility] 2021-12-24 00:00:00 2021-12-24 00:00:00 Telephone Osiris Miranda [facility] PROFESS NAL BUILDING 1.2.840.114 350.1.13.10 4.2.7.2.686 [id number] 231 [id number] [facility] 2021-12-24 00:00:00 2021-12-24 00:00:00 Telephone Osiris Miranda [facility] PROFESSIO NAL BUILDING 1.2.840.114 350.1.13.10 4.2.7.2.686 [id number] [id number] [facility] 2021-12-24 00:00:00 2021-12-24 00:00:00 Telephone Osiris Miranda [facility] NAL BUILDING 1.2.840.114 350.1.13.10 4.2.7.2.686 [id number] 231 [id number] [facility] 2021-12-18 00:00:00 2021-12-18 00:00:00 Telephone Osiris Miranda [facility] BUILDING 1.2.840.114 350.1.13.10 4.2.7.2.686 [id number] 231 [id number] [facility] 2021-12-05 12:45:00 2021-12-05 12:45:00 Outpatient R KEE EDMONDS [facility] [id number] General acute hospital 2021-11-28 08:45:00 2021-11-28 09:55:34 Outpatient R ROYCE HERNÁNDEZ [facility] [id number] [facility] 2021-11-28 08:45:00 2021-11-28 09:00:00 Office Visit Royce [facility] 1..840.114 350.1.13.10 4.2.7.2.686 [id number] [facility] 2021-11-28 08:45:00 2021-11-28 08:45:00 Outpatient R ROYCE HERNÁNDEZ [facility] [id number] [facility] 2021-11-28 08:45:00 2021-11-28 08:45:00 Outpatient ROYCE KENDALL [facility] [id number] [facility] 2021-11-27 00:00:00 2021-11-27 00:00:00 Telephone Osiris Miranda [facility] BU[facility] 1.2.840.114 350.1.13.10 4.2.7.2.686 [id number] [facility] 2021-11-25 13:30:00 2021-11-25 13:30:00 Outpatient R DIANNE CHOPRA [facility] [id number] [facility] 2021-11-14 15:00:00 2021-11-14 16:04:51 Outpatient R OSIRIS MIRANDA [facility] [id number] [facility] 2021-11-14 15:00:00 2021-11-14 16:04:51 Office Visit Osiris Miranda [facility] N[facility] BUILD[facility] 1.2.840.114 350.1.13.10 4.2.7.2.686 [id number] 231 [id number] [facility] 2021-11-14 15:00:00 2021-11-14 15:00:00 Outpatient R OSIRIS MIRNADA [facility] [id number] [facility] 2021-11-05 13:30:00 2021-11-05 13:30:00 Outpatient BEATRICE LITTLE [facility] [id number] [facility] 2021-11-03 00:00:00 2021-11-03 00:00:00 Refill Magnus Martin [facility]AC[facility] BY [facility]?KATIE [facility] MEDICAL OFFICE BUILDING 1.2.840.114 350.1.13.10 4.2.7.2.686 [id number] [facility] 2021-10-29 00:00:00 2021-10-29 00:00:00 [facility] 1.2.840.114 350.1.13.10 4.2.7.2.686 [id number] [facility] 2021-10-29 00:00:00 2021-10-29 00:00:00 Telephone [facility] OFF[facility] BUILD[facility] 1.2.840.114 350.1.13.10 4.2.7.2.686 [id number] [facility] 2021-10-28 13:00:00 2021-10-28 13:00:00 Outpatient MANNY KAPLANHI [facility] [id number] [facility] 2021-10-23 00:00:00 2021-10-23 00:00:00 Telephone Osiris Miranda [facility] BU[facility] 1.2.840.114 350.1.13.10 4.2.7.2.686 [id number] [facility] 2021-10-22 00:00:00 2021-10-22 00:00:00 Refill Dianne Chopra [facility] 1.2.840.114 350.1.13.10 4.2.7.2.686 [id number] [facility] 2021-10-22 00:00:00 2021-10-22 00:00:00 Refill Osiris Miranda [facility] 1.2.840.114 350.1.13.10 4.2.7.2.686 [id number] [facility] 2021-10-22 00:00:00 2021-10-22 00:00:00 Refill Castillo Guerra [facility] 1.2.840.114 350.1.13.10 4.2.7.2.686 [id number] [facility] 2021-09-26 08:45:00 2021-09-26 09:00:00 Office Visit Royce Hernández [facility] 1.2840.114 350.1.13.10 4.2.7.2.686 [id number] [facility] 2021-09-26 08:45:00 2021-09-26 08:45:00 Outpatient R ROYCE HERNÁNDEZ [facility] [id number] [facility] 2021-09-26 08:45:00 2021-09-26 08:45:00 Outpatient R HITESH RIKAORLANDO FARMERCHRIS [facility] [id number] [facility] 2021-09-26 08:45:00 2021-09-26 08:45:00 Outpatient R HITESH MELÉNDEZROYCE [facility] [id number] [facility] 2021-09-24 13:30:00 2021-09-24 13:30:00 Outpatient R BEATRICE VELEZ [facility] [id number] [facility] 2021-09-23 13:30:00 2021-09-23 13:30:00 Outpatient R KEE EDMONDS [facility] [id number] General acute hospital 2021-09-16 08:45:00 2021-09-16 08:45:00 Outpatient MAGNUS LAZO [facility] [id number] [facility] 2021-09-11 00:00:00 2021-09-11 00:00:00 Telephone Magnus Martin REPLACED BY [facility] 1.2.840.114 350.1.13.10 4.2.7.2.686 [id number] [facility] 2021-09-09 13:30:00 2021-09-09 13:30:00 Outpatient DIANNE WHITAKER [facility] [id number] [facility] 2021 00:00:00 2021 00:00:00 Magnus Peña REPLACED BY [facility]IE [facility]ON [facility] 1.2.840.114 350.1.13.10 4.2.7.2.686 [id number] [facility] 2021-09-04 00:00:00 2021-09-04 00:00:00 Telephone Magnus Martin REPLACED BY [facility]?KATIE [facility] 1..840.114 350.1.13.10 4.2.7.2.686 [id number] [facility] 2021-09-04 00:00:00 2021-09-04 00:00:00 Orders Only Doctor Unassigned, Ida [facility] 1.84.114 350.1.13.10 4.2.7.2.686 [id number] [facility] 2021-09-03 14:20:00 2021-09-03 15:03:59 Outpatient R CHARLIE [facility] [id number] [facility] 2021-09-03 14:20:00 2021-09-03 15:03:59 Office Visit Charlie [facility] 1.840.114 350.1.13.10 4.2.7.2.686 [id number] [facility] 2021-09-03 14:20:00 2021-09-03 15:03:59 Outpatient R CHARLIE [facility] [id number] [facility] 2021-09-03 14:20:00 2021-09-03 14:20:00 [id number] 2021-09-03 14:20:00 2021-09-03 14:20:00 Outpatient R CHARLIE [facility] [id number] [facility] 2021-09-02 00:00:00 2021-09-02 00:00:00 Telephone Magnus Martin REPLACED BY [facility]?KATIE [facility] 1.840.114 350.1.13.10 4.2.7.2.686 [id number] [facility] 2021-08-26 00:00:00 2021-08-26 00:00:00 Telephone Magnus Martin [facility] ANSONE?[facility]ATIE [facility] MEDICAL OFFICE BUILDING 1.840.114 350.1.13.10 4.2.7.2.686 [id number] 220 [id number] [facility] 2021-08-22 15:00:00 2021-08-22 15:30:00 Nurse Visit Nurse, Alfred Hough/Osiris Davies [facility]IE [facility] BU[facility]ING 1..840.114 350.1.13.10 4.2.7.2.686 [id number] 220 [id number] [facility] 2021-08-22 15:00:00 2021-08-22 15:00:00 Outpatient R [facility] [id number] [facility] 2021-08-22 15:00:00 2021-08-22 15:00:00 Outpatient R OSIRIS MIRANDA [facility] [id number] [facility] 2021-08-22 00:00:00 2021-08-22 00:00:00 Magnus Peña [facility]IE [facility] MEDICAL OFFICE BUILDING 1..840.114 350.1.13.10 4.2.7.2.686 [id number] [facility] 2021-08-16 00:00:00 2021-08-16 00:00:00 [facility] MEDICAL OFFICE BUILDING 1..840.114 350.1.13.10 4.2.7.2.686 [id number] 220 [id number] [facility] 2021-08-14 14:30:00 2021-08-14 15:39:18 Outpatient R JACK CHANG OGECHUKWU [facility] [id number] [facility] 2021-08-14 14:30:00 2021-08-14 15:39:18 Office Visit Jack [facility] 1..840.114 350.1.13.10 4.2.7.2.686 [id number] [facility] 2021-08-14 14:30:00 2021-08-14 15:39:18 Outpatient R JACK CHANG JACK [facility] [id number] [facility] 2021-08-09 15:30:00 2021-08-09 16:12:17 Outpatient R MAGNUS MARTIN [facility] [id number] [facility] 2021-08-09 15:30:00 2021-08-09 16:12:17 Office Visit Magnus Martin [facility]?KATIE JON MEDICAL OFFICE BUILDING 1..840.114 350.1.13.10 4.2.7.2.686 [id number] 220 [id number] [facility] 2021-08-08 12:00:00 2021-08-08 12:00:00 Outpatient R KEE EDMONDS [facility] [id number] General acute hospital 2021-08-01 00:00:00 2021-08-01 00:00:00 Telephone Osiris Miranda [facility] BUILDING 1.2.840.114 350.1.13.10 4.2.7.2.686 [id number] [facility] 2021-07-31 00:00:00 2021-07-31 00:00:00 Telephone Osiris Miranda [facility] NAL BUILDING 1.2.840.114 350.1.13.10 4.2.7.2.686 [id number] [facility] 2021-07-30 14:00:00 2021-07-30 15:14:45 Outpatient R OSIRIS MIRANDA [facility] [id number] [facility] 2021-07-30 14:00:00 2021-07-30 15:14:45 Office Visit Osiris Miranda [facility]ESS[facility] NAL BUILDING 1.2.840.114 350.1.13.10 4.2.7.2.686 [id number] [facility] 2021-07-30 14:00:00 2021-07-30 15:14:45 [facility] [id number] [facility] 2021-07-30 14:00:00 2021-07-30 15:14:45 Outpatient R MIRANDAMELANIEOSIRIS [facility] [id number] [facility] 2021-07-30 14:00:00 2021-07-30 14:00:00 [facility] [id number] [facility] 2021-07-29 00:00:00 2021-07-29 00:00:00 Telephone Osiris Miranda [facility] 1.2.840.114 350.1.13.10 4.2.7.2.686 [id number] [facility] 2021-07-25 08:45:00 2021-07-25 09:17:30 Outpatient R ROYCE HERNÁNDEZ [facility] [id number] [facility] 2021-07-25 08:45:00 2021-07-25 09:00:00 Office Visit Royce [facility] 1.2.840.114 350.1.13.10 4.2.7.2.686 [id number] [facility] 2021-07-25 08:45:00 2021-07-25 08:45:00 Outpatient ROYCE KENDALL [facility] [id number] [facility] 2021-07-25 00:00:00 2021-07-25 00:00:00 Orders Only Doctor Unassigned, Ida [facility] 1.84.114 350.1.13.10 4.2.7.2.686 [id number] [facility] 2021-07-22 00:00:00 2021-07-22 00:00:00 Telephone Osiris Miranda [facility] BUILDING 1.2840.114 350.1.13.10 4.2.7.2.686 [id number] [facility] 2021-07-21 00:00:00 2021-07-21 00:00:00 Refill Dianne Chopra [facility] PRIMARY & SPECIALTY CARE 1.284.114 350.1.13.10 4.2.7.2.686 [id number] [facility] 2021-07-21 00:00:00 2021-07-21 00:00:00 Refill Osiris Miranda [facility] BUILDING 1.840.114 350.1.13.10 4.2.7.2.686 [id number] [facility] 2021-07-21 00:00:00 2021-07-21 00:00:00 Refill [facility]ATIE JON MEDICAL OFFICE BUILDING 1.2840.114 350.1.13.10 4.2.7.2.686 [id number] 220 [id number] [facility] 2021-07-15 13:30:00 2021-07-15 13:30:00 Outpatient KEE KAPLAN [facility] [id number] General acute hospital 2021-06-14 00:00:00 2021-06-14 00:00:00 Telephone Magnus Martin REPLACED BY [facility] ANSONE?KATIE [facility] MEDICAL OFFICE BUILDING 1.2840.114 350.1.13.10 4.2.7.2.686 [id number] 220 [id number] [facility] 2021-06-13 12:15:00 2021-06-13 12:15:00 [facility] [id number] General acute hospital 2021-06-13 12:15:00 2021-06-13 12:15:00 [facility]patient [facility] [id number] General acute hospital 2021-06-13 00:00:00 2021-06-13 00:00:00 Telephone Veronica [facility] OFFICE BUILDING 1.84.114 350.1.13.10 4.2.7.2.686 [id number] 220 [id number] [facility] 2021-06-04 00:00:00 2021-06-04 00:00:00 Telephone Veronica [facility] MEDICAL OFFICE BUILDING 1.84.114 350.1.13.10 4.2.7.2.686 [id number] 220 [id number] [facility] 2021-06-03 00:00:00 2021-06-03 00:00:00 Refill Martin, [facility] NAL BUILDING 1.84.114 350.1.13.10 4.2.7.2.686 [id number] [facility] 2021-05-23 08:45:00 2021-05-23 10:18:33 Outpatient R ROYCE HERNÁNDEZ [facility] [id number] [facility] 2021-05-23 08:45:00 2021-05-23 10:18:33 Office Visit Royce Hernández [facility] 1.114 350.1.13.10 4.2.7.2.686 [id number] [facility] 2021-05-23 08:45:00 2021-05-23 10:18:33 Outpatient R ROYCE HERNÁNDEZ [facility] [id number] [facility] 2021-05-23 08:45:00 2021-05-23 08:45:00 Outpatient R ROYCE HERNÁNDEZ [facility] [id number] [facility] 2021-05-07 00:00:00 2021-05-07 00:00:00 Telephone AureliashantanuRajni olivas [facility] 1.2.840.114 350.1.13.10 4.2.7.2.686 [id number] [facility] 2021-05-07 00:00:00 2021-05-07 00:00:00 Patient Secure Msg Doctor Unassigned, Ida [facility] 1..840.114 350.1.13.10 4.2.7.2.686 [id number] [facility] 2021-05-06 14:00:00 2021-05-06 15:21:21 Outpatient R JACK CHANG OGECHUKWU [facility] [id number] [facility] 2021-05-06 14:00:00 2021-05-06 15:21:21 Office Visit Jack Chang [facility] BUILDING 1.2.840.114 350.1.13.10 4.2.7.2.686 [id number] [facility] 2021-05-06 14:00:00 2021-05-06 15:21:21 Outpatient R JACK CHANG OGECHUKWU [facility] [id number] [facility] 2021-05-01 14:40:00 2021-05-01 14:40:00 Outpatient R YULI SEE [facility] [id number] [facility] 2021-04-30 00:00:00 2021-04-30 00:00:00 Refill Osiris Miranda [facility] 1.2.840.114 350.1.13.10 4.2.7.2.686 [id number] [facility] 2021-04-19 00:00:00 2021-04-19 00:00:00 Telephone Osiris Miranda [facility] 1.2.840.114 350.1.13.10 4.2.7.2.686 [id number] [facility] 2021-04-18 09:08:19 2021-04-18 23:59:00 Outpatient R MIRANDAMELANIEOSIRIS [facility] [id number] [facility] 2021-04-18 09:08:19 2021-04-18 23:59:00 Hospital Encounter Osiris Miranda [facility] 1.2.840.114 350.1.13.10 4.2.7.2.686 [id number] [facility] 2021-04-18 09:08:19 2021-04-18 23:59:00 Outpatient R OSIRIS MIRANDA [facility] [id number] [facility] 2021-04-17 14:40:00 2021-04-17 14:40:00 Outpatient YULI CLEMENT [facility] [id number] [facility] 2021-04-17 14:40:00 2021-04-17 14:40:00 Outpatient YULI CLEMENT [facility] [id number] [facility] 2021-04-15 13:45:00 2021-04-15 13:45:00 Outpatient DIANNE WHITAKER [facility] [id number] [facility] 2021-04-01 14:20:00 2021-04-01 16:02:29 Outpatient R OSIRIS MIRANDA [facility] [id number] [facility] 2021-04-01 14:20:00 2021-04-01 16:02:29 Office Visit Osiris Miranda [facility] NAL BUILDING 1.2.840.114 350.1.13.10 4.2.7.2.686 [id number] [facility] 2021-04-01 14:20:00 2021-04-01 14:20:00 Outpatient R OSIRIS MIRANDA [facility] [id number] [facility] 2021-03-26 00:00:00 2021-03-26 00:00:00 Telephone Magnus Martin [facility]?KATIE [facility] OFFICE BUILDING 1.2.840.114 350.1.13.10 4.2.7.2.686 [id number] [facility] 2021-03-25 09:15:00 2021-03-25 09:15:00 Outpatient R MAGNUS MARTIN [facility] [id number] [facility] 2021-03-25 08:36:43 2021-03-25 08:51:43 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, Magnus Casanova [facility] BUILDING 1.2.840.114 350.1.13.10 4.2.7.2.686 [id number] [facility] 2021-03-22 15:00:00 2021-03-22 16:07:28 Outpatient MAGNUS LAZO [facility] [id number] [facility] 2021-03-22 15:00:00 2021-03-22 16:07:28 Outpatient MAGNUS LAZO [facility] [id number] [facility] 2021-03-22 15:00:00 2021-03-22 16:07:28 Office Visit Magnus Martin [facility]?KATIE JON MEDICAL OFFICE BUILDING 1..840.114 350.1.13.10 4.2.7.2.686 [id number] 220 [id number] [facility] 2021-03-22 15:00:00 2021-03-22 15:00:00 Outpatient R MAGNUS MARTIN [facility] [id number] [facility] 2021-03-22 00:00:00 2021-03-22 00:00:00 Refill Magnus Martin [facility]?KATIE JON MEDICAL OFFICE BUILDING 1..840.114 350.1.13.10 4.2.7.2.686 [id number] [facility] 2021-03-21 08:15:00 2021-03-21 10:19:53 Outpatient R ROYCE HERNÁNDEZ [facility] [id number] [facility] 2021-03-21 08:03:53 2021-03-21 08:18:53 Office Visit Royce Hernández [facility] 1..840.114 350.1.13.10 4.2.7.2.686 [id number] [facility] 2021-03-21 08:15:00 2021-03-21 08:15:00 Outpatient R ROYCE HERNÁNDEZ [facility] [id number] [facility] 2021-03-11 13:30:00 2021-03-11 13:30:00 Outpatient R DIANNE CHOPRA [facility] [id number] [facility] 2021-02-01 00:00:00 2021-02-01 00:00:00 Telephone Rajni Momin [facility] nal Building 1..840.114 350.1.13.10 4.2.7.2.686 [id number] [facility] 2021-01-28 13:00:00 2021-01-28 13:00:00 Outpatient R NAV DIANNE [facility] [id number] [facility] 2021-01-24 09:00:00 2021-01-24 09:00:00 Outpatient R ROYCE HERNÁNDEZ [facility] [id number] [facility] 2021-01-24 08:29:46 2021-01-24 08:44:46 Office Visit Royce Hernández [facility] 1.114 350.1.13.10 4.2.7.2.686 [id number] [facility] 2021-01-18 00:00:00 2021-01-18 00:00:00 Telephone [facility]Katie jon Medical Office Building 1.84.114 350.1.13.10 4.2.7.2.686 [id number] 220 [id number] [facility] 2021-01-17 00:00:00 2021-01-17 00:00:00 Orders Only Doctor Unassigned, Ida [facility] 1.114 350.1.13.10 4.2.7.2.686 [id number] [facility] 2021-01-09 00:00:00 2021-01-09 00:00:00 Patient Outreach [facility] 1.84.114 350.1.13.10 4.2.7.2.686 [id number] [facility] 2021-01-08 00:00:00 2021-01-08 00:00:00 Telephone Osiris Miranda [facility] nal Building 1.840.114 350.1.13.10 4.2.7.2.686 [id number] [facility] 2021-01-01 00:00:00 2021-01-01 00:00:00 Orders Only Doctor Unassigned, Ida [facility] 1.2.840.114 350.1.13.10 4.2.7.2.686 [id number] [facility] 2020-12-28 15:00:00 2020-12-28 15:00:00 Outpatient MAGNUS LAZO [facility] [id number] [facility] 2020-12-27 00:00:00 2020-12-27 00:00:[address] [facility] 1.2.840.114 350.1.13.10 4.2.7.2.686 [id number] [facility] 2020-12-27 00:00:00 2020-12-27 00:00:[address] [facility] 1.2.840.114 350.1.13.10 4.2.7.2.686 [id number] [facility] 2020-12-27 00:00:00 2020-12-27 00:00:00 Refill Dianne Chopra [facility] Primary [facility] Specialty Care 1.2.840.114 350.1.13.10 4.2.7.2.686 [id number] [facility] 2020-11-29 08:15:00 2020-11-29 08:15:00 Outpatient ROYCE KENDALL [facility] [id number] [facility] 2020-11-28 09:00:00 2020-11-28 09:00:00 Outpatient JUSTYN LYNN [facility] [id number] [facility] 2020-11-20 14:20:00 2020-11-20 14:20:00 Outpatient R OSIRIS MIRANDA [facility] [id number] [facility] 2020-08-29 14:00:00 2020-08-29 14:00:00 Outpatient R CASTILLO GUERRA [facility] [id number] [facility] 2020-08-27 14:00:00 2020-08-27 14:00:00 Outpatient R OSIRIS MIRANDA [facility] [id number] [facility] 2020-07-30 13:00:00 2020-07-30 13:00:00 [facility] [id number] [facility] 2020-07-02 13:00:00 2020-07-02 13:00:00 Outpatient R NAV [facility] [id number] [facility] 2020-06-29 15:30:00 2020-06-29 16:35:42 Outpatient R MAGNUS MARTIN [facility] [id number] [facility] 2020-06-04 13:00:00 2020-06-04 13:00:00 [facility] [id number] [facility] 2020-05-17 13:40:00 2020-05-17 13:40:00 Outpatient R OSIRIS MIRANDA [facility] [id number] [facility] 2020-05-07 10:30:00 2020-05-07 10:30:00 Outpatient R NAV [facility] [id number] [facility] 2020-04-23 14:00:00 2020-04-23 14:00:00 Outpatient R NAV [facility] [id number] [facility] 2020-03-19 13:30:00 2020-03-19 13:30:00 Outpatient R NAV [facility] [id number] [facility] 2020-02-29 13:34:05 2020-02-29 13:54:05 [facility] 1.2.840.114 350.1.13.10 4.2.7.2.686 [id number] 2020-02-29 13:40:00 2020-02-29 13:40:00 [facility] [id number] 2020-02-29 00:00:00 2020-02-29 00:00:00 Telephone Magnus Martin [facility] 1.2.840.114 350.1.13.10 4.2.7.2.686 [id number] 2020-02-28 10:00:00 2020-02-28 10:00:00 [facility] [id number] [facility] 2020-02-23 11:00:00 2020-02-23 11:00:00 Outpatient R CHARLIE [facility] [id number] [facility] 2020-02-17 08:40:00 2020-02-17 08:40:00 Outpatient R JACKELYN MIRANDATH [facility] [id number] [facility] 2020-02-17 00:00:00 2020-02-17 00:00:00 Patient Secure Msg Charlie [facility] 1.2.840.114 350.1.13.10 4.2.7.2.686 [id number] [facility] 2020-02-15 11:00:00 2020-02-15 11:00:00 Outpatient R [facility] [id number] [facility] 2020-02-09 09:00:00 2020-02-09 09:00:00 Outpatient R OSIRIS MIRANDA [facility] [id number] [facility] 2020-02-09 00:00:00 2020-02-09 00:00:00 Patient Secure Castillo Devine [facility] 1.2.840.114 350.1.13.10 4.2.7.2.686 [id number] [facility] 2020-02-08 13:00:00 2020-02-08 13:00:00 Outpatient R [facility] [id number] [facility] 2020-02-01 08:00:00 2020-02-01 08:00:00 Outpatient R [facility] [id number] [facility] 2020-01-30 13:00:00 2020-01-30 13:00:00 [facility] [id number] [facility] 2020-01-30 00:00:00 2020-01-30 00:00:00 Orders Only Doctor Unassigned, Ida [facility] 1.2.840.114 350.1.13.10 4.2.7.2.686 [id number] 2020-01-02 11:00:00 2020-01-02 11:00:00 Outpatient R NAV DIANNE [facility] [id number] [facility] 2019-12-28 10:20:00 2019-12-28 10:20:00 Outpatient Ann GUERRAZAIRAMICHEL [facility] [id number] [facility] 2019-12-23 11:00:00 2019-12-23 11:00:00 Outpatient R MAGNUS MARTIN [facility] [id number] [facility] 2019-12-01 09:45:00 2019-12-01 09:45:00 Outpatient R ROYCE HERNÁNDEZ [facility] [id number] [facility] 2019-11-22 13:30:00 2019-11-22 13:30:00 Outpatient R PENELOPE JENNINGS [facility] [id number] [facility] 2019-10-06 14:30:2019-10-06 14:30:00 Outpatient R PENELOPE JENNINGS [facility] [id number] [facility] 2019-10-05 13:00:00 2019-10-05 13:00:00 Outpatient R CASTILLO GUERRA [facility] [id number] [facility] 2019-10-03 11:30:00 2019-10-03 11:30:00 Outpatient R SANDEEP MAGANA [facility] [id number] [facility] 2019-08-31 10:00:00 2019-08-31 10:00:00 Outpatient R STEFFEN AKERS DENISE [facility] [id number] [facility] 2019-08-25 13:00:00 2019-08-25 13:00:00 Outpatient PENELOPE CARDENAS [facility] [id number] [facility] 2019-08-24 09:45:00 2019-08-24 09:45:00 Outpatient R DIANNE CHOPRA [facility] [id number] [facility] 2019-08-12 12:00:00 2019-08-12 12:00:00 Outpatient R MAGNUS MARTIN [facility] [id number] [facility] 2019-08-10 10:00:00 2019-08-10 10:00:00 Outpatient R ELISE CARLTON STRAHIL [facility] [id number] [facility] 2019-08-01 13:30:00 2019-08-01 13:30:00 Outpatient R NOÉ ROMAN [facility] [id number] [facility] 2019-07-29 11:30:00 2019-07-29 11:30:00 Outpatient R NOÉ ROMAN [facility] [id number] [facility] 2019-07-19 09:00:00 2019-07-19 09:00:00 Outpatient HONG GAYTAN [facility] [id number] [facility] 14:30:00 2019-07-12 14:30:00 Outpatient R PENELOPE JENNINGS [facility] [id number] [facility] 2019-07-08 09:45:00 2019-07-08 09:45:00 Outpatient R HITESH MELÉNDEZ WALESKAJOSHUACHRIS [facility] [id number] [facility] 2019-07-05 13:00:00 2019-07-05 13:00:00 Outpatient R CASTILLO GUERRA [facility] [id number] [facility] 2019-06-03 13:49:29 2019-06-03 16:34:00 Emergency X BOO LOZOYA [facility] ERT [id number] [facility] 2019-05-09 13:17:08 2019-05-09 23:59:00 Outpatient R JACQUELINE JUSTYN [facility] [id number] [facility] 2015-01-10 00:00:00 2015-01-10 00:00:00 Patient Secure MsMagnus Johnson [facility] 1.2.840.114 350.1.13.10 4.2.7.2.686 [id number] [facility] 2012-04-16 00:00:00 2012-04-16 10:49:00 Outpatient [facility] [id number] [facility] 2012-04-16 00:00:00 2012-04-16 09:38:00 Outpatient [facility] [id number] [facility] 2012-03-31 00:00:00 2012-03-31 15:18:00 Outpatient [facility] [id number] [facility] 2012-03-08 00:00:00 2012-03-08 12:44:00 Outpatient [facility] [id number] [facility] 2011-12-18 00:00:00 2011-12-18 10:39:00 Outpatient [facility] [id number] 3 [facility] 2011-12-15 00:00:00 2011-12-15 09:44:00 Outpatient [facility] [id number] 8 [facility] 2011-11-20 00:00:00 2011-11-20 11:43:00 [facility] [id number] 7 [facility] 2011-08-22 00:00:00 2011-08-22 12:40:00 [facility] [id number] [facility] 2011-08-15 00:00:00 2011-08-15 09:17:00 [facility] [id number] [facility] 2011-08-13 00:00:00 2011-08-13 14:46:00 [facility] [id number] [facility] 2011-08-06 00:00:00 2011-08-06 09:20:00 [facility] [id number] 7 [facility] 2011-07-07 00:00:00 2011-07-07 11:30:00 [facility] [id number] 8 [facility] 2011-05-30 00:00:00 2011-05-30 13:44:00 [facility] [id number] [facility] 2011-05-14 00:00:00 2011-05-14 13:39:00 [facility] [id number] [facility] 2011-05-05 00:00:00 2011-05-05 16:02:00 [facility] [id number] 6 [facility] 2011-04-16 00:00:00 2011-04-16 11:26:00 [id number] [facility]00 2011-03-19 16:11:00 [facility] [id number] [facility] 2011-02-12 00:00:00 2011-02-12 12:46:00 [facility] [id number] 6 [facility] Results Test Description Test Time Test Comments Results Result Comments Source Intravitreal Injection, Pharmacologic Agent - OS - Left Eye 16:19:54 Table formatting from the original result was not included.Time Out12/03/2023. 11:19 AM. Confirmed correct patient, procedure, site, and patient consented. AnesthesiaTopical anesthesia was used. Anesthetic medications included Lidocaine 3.5% gel. ProcedurePreparation included 5% betadine to ocular surface. A 32 gauge needle was used. Injection:1.25 mg bevacizumab 1.25 mg/0.05 mL ?Route: Intravitreal, Site: Left Eye ?[facility]: [id number], Lot: [id number], Expiration date: 02/26/2024 Post-opPost injection exam found visual acuity of at least counting fingers. The patient tolerated the procedure well. There were no complications. The patient received written and verbal post procedure care education. Post injection medications were not given. Notes Date of Service: 12/03/2023 Time out:Individual performing procedure identifiedCorrect patientCorrect siteCorrect procedure Surgeon: Royce Meléndez MD Eye: left PROCEDURE: IVT Avastin OS Allergies: Allergies Allergen Reactions Amoxicillin Unknown - See comments ?Blurry vision Bactrim [Sulfamethoxazole-Trimet hoprim] Unknown - See comments Codeine Unknown - See comments ?Patient states it makes her feel worse, pain increases Flagyl [Metronidazole] Other - See comments ?Throat swelling Morphine Anxiety Phenergan [Promethazine Hcl] Nausea and/or Vomiting Tramadol Anxiety ?Pt felt "weird" Prep: Betadine 5% ? Anesthesia: Akten 3.5% Leonarda Purvis ?12/03/2023 ?10:47 AM [facility] [id number] 23:28:32 * Test Item Value Reference Range Interpretation Comme nts TSH (test code = 9022995052) 1.20 0.45-4.70 Lab Interpretation (test cod e = 83222-4) Normal [facility] [id number] 23:15:14* Test Item Value Reference Range Interpretation Comme nts FREE T4 (test code = 2826379608) 1.16 0.78-2.20 Lab Interpretation (test cod e = 35855-5) Normal [facility] [id number] 23:14:52* Test Item Value Reference Range Interpretation Comme nts FREE T3 (test code = 9173906603) 3.32 pg/mL 2.77-5.27 Lab Interpretation (test cod e = 12765-7) [facility]2023-11-06 23:02:22* Test Item Value Reference Range Interpretation Comme nts HGB A1C (test code = 4548-4) 7.5 % 4.0-5.7 H SAM (test code = SAM) Reference RangesNormal: <5.7%Prediabetes: 5.7 - 6.4%Diabetes: > 6.5% Lab Interpretation (test code = 91774-1) Abnormal [facility]Allen[facility]id [facility] (48723)(Total Cholesterol, Triglycerides, HDL)2023-11-06 23:00:28* Test Item Value Reference Range Interpretation Comme nts CHOL (test code = 2576512556) 210 mg/dL 120-200 H HDL (test code = 7650785691) 92 mg/dL >=50 HDLC RATIO (test code = 4828870437) 2.3 <=4.5 TRIG (test code = 6069446562) 81 mg/dL 30-170 LDL CHOL (test code = 12861-9) 102 mg/dL <=160 VLDL (test code = 1822871800) 16 mg/dL 5-60 Lab Interpretation (test cod e = 34569-1) Abnormal [facility] Met[facility] (99350)2023-11-06 23:00:27* Test Item Value Reference Range Interpretation Comme nts NA (test code = 3638503162) 137 mmol/L 135-145 K (test code = 1093377212) 4.3 mmol/L 3.5-5.0 CL (test code = 9007075329) 101 mmol/L 98-108 CO2 TOTAL (test code = 2677209492) 30 mmol/L 23-31 AGAP (test code = 2091409587) 6 2-16 BUN (test code = 8393102597) 18 mg/dL 7-23 GLUCOSE (test code = 5233113072) 230 mg/dL 70-110 H CREATININE (test code = 2160-0) 0.63 mg/dL 0.50-1.04 TOTAL BILI (test code = 7011154378) 0.6 mg/dL 0.1-1.1 CALCIUM (test code = 3826446696) 9.3 mg/dL 8.6-10.6 T PROTEIN (test code = 7259050241) 7.6 g/dL 6.3-8.2 ALBUMIN (test code = 7822442767) 4.1 g/dL 3.5-5.0 ALK PHOS (test code = 1873800154) 132 U/L 34-122 H ALTv (test code = 1742-6) 17 U/L 5-35 AST(SGOT) (test code = 2282337621) 26 U/L 13-40 eGFR (test code = 24814-2) 95.6 mL/min/1.73m2 CKD-EPI eGFR (2020). Assuming creatinine has been stable day-to-day for at least three months, the eGFR indicates Category G1 (>= 90 mL/min/1.73 m2) Lab Interpretation (test code = 63993-7) Abnormal [facility] with [id number] 22:03:43* Test Item Value Reference Range Interpretation Comme nts WBC (test code = 6690-2) 7.60 4.30-11.10 RBC (test code = 789-8) 4.02 3.93-5.25 HGB (test code = 718-7) 12.4 g/dL 11.6-15.0 HCT (test code = 4544-3) 38.3 % 35.7-45.2 MCV (test code = 787-2) 95.3 fL 80.6-95.5 MCH (test code = 785-6) 30.8 pg 25.9-32.8 MCHC (test code = 786-4) 32.4 g/dL 31.6-35.1 RDW-SD (test code = 98071-2) 45.9 fL 39.0-49.9 RDW-CV (test code = 788-0) 13.1 % 12.0-15.5 PLT (test code = 777-3) 219 166-358 MPV (test code = 47535-8) 10.8 fL 9.5-12.9 NRBC/100 WBC (test code = 3102622376) 0.0 0.0-10.0 NRBC x10^3 (test code = 8579415230) See_Comment [Automated messa ge] The system which generated this result transmitted reference range: 10*3/?L. The reference range was not used to interpret this result as normal/abnormal. GRAN MAT (NEUT) % (test code = 770-8) 60.4 % IMM GRAN % (test code = 4630888135) 0.30 % LYMPH % (test code = 736-9) 34.2 % MONO % (test code = 5905-5) 4.3 % EOS % (test code = 713-8) 0.1 % BASO % (test code = 706-2) 0.7 % GRAN MAT x10^3(ANC) (test code = 0472084890) 4.59 10*3/uL 1.88-7.09 IMM GRAN x10^3 (test code = 2609866046) 0.00-0.06 LYMPH x10^3 (test code = 731-0) 2.60 10*3/uL 1.32-3.29 MONO x10^3 (test code = 742-7) 0.33 10*3/uL 0.33-0.92 EOS x10^3 (test code = 711-2) 0.03-0.39 L BASO x10^3 (test code = 704-7) 0.05 10*3/uL 0.01-0.07 Lab Interpretation (test code = 51857-5) [facility], Pharmacologic Agent - OS - Left [id number] 15:58:35Table formatting from the original result was not included.Time Out10/29/2023. 10:58 AM. Confirmed correct patient, procedure, site, and patient consented. AnesthesiaTopical anesthesia was used. Anesthetic medications included Lidocaine 3.5% gel, Proparacaine 0.5%. ProcedurePreparation included 5% betadine to ocular surface. A 32 gauge needle was used. Injection:1.25 mg bevacizumab 1.25 mg/0.05 mL?Route: Intravitreal, Site: Left Eye ?[facility]: [address]-2, Lot: [id number], Expiration date: 02/05/2024 Post- opPost injection exam found visual acuity of at least counting fingers. The patient tolerated the procedure well. There were no complications. The patient received written and verbal post procedure care education. Post injection medications were not given. Notes Date of Service: 10/29/2023Time out:Individual performing procedure identifiedCorrect patientCorrect siteCorrect procedure Surg windy: Royce Meléndez MD Eye: left PROCEDURE: IVT Avastin OS Allergies: Allergies Allergen Reactions Amoxicillin Unknown - See comments ?Blurry vision Bactrim [Sulfamethoxazole-Trimethoprim] Unknown - See comments Codeine Unknown - See comments ?Patient states it makes her feel worse, pain increases Flagyl [Metronidazole] Other - See comments ?Throat swelling Morphine Anxiety Phenergan [Promethazine Hcl] Nausea and/or Vomiting Tramadol Anxiety ?Pt felt "weird" Prep: Proparacaine and Betadine 5%? Anesthesia: Akten 3.5% Ev Coombs ?10/29/2023 ?10:28 [facility]ravitreal Injection, Pharmacologic Agent - OS - Left [id number] 18:27:55Table formatting from the original result was not included.Time Out10/01/2023. 1:27 PM. Confirmed correct patient, procedure, site, and patient consented. AnesthesiaTopical anesthesia was used. Anesthetic medications included Lidocaine 3.5% gel, Proparacaine 0.5%. ProcedurePreparation included 5% betadine to ocular surface. A 32 gauge needle was used. Injection:1.25 mg bevacizumab 1.25 mg/0.05 mL ?Route: Intravitreal, Site: Left Eye ?[facility]: [address]-2, Lot: [id number], Expiration date: 024 Post-opPost injection exam found visual acuity of at least counting fingers. The patient tolerated the procedure well. There were no complications. The patient received written and verbal post procedure care education. Post injection medications were not given. Notes Date of Service: 10/01/2023 Time out:Individual performing procedure identifiedCorrect patientCorrect siteCorrect procedure Surgeon: Royce Meléndez MD Eye: left PROCEDURE: IVT Avastin OS Allergies: Allergies Allergen ReactionsAmoxicillin Unknown - See comments ?Blurry vision Bactrim [Sulfamethoxazole-Trimethoprim] Unknown -See comments Codeine Unknown - See comments ?Patient states it makes her feel worse, pain increasesFlagyl [Metronidazole] Other - See comments ?Throat swelling Morphine Anxiety Phenergan [Promethazine Hcl] Nausea and/or Vomiting Tramadol Anxiety ?Pt felt "weird" Prep: Betadine 5% ? Anesthesia: Akten 3.5% Keke Chery ?10/01/2023 ?1:07 PMUnTexas [facility]wallIntravitreal Injection, Pharmacologic Agent - OS - Left [id number] 17:31:36Table formatting from the original result was not included.Time Out08/13/2023. 12:31 PM. Confirmed correct patient, procedure, site, and patient consented. AnesthesiaTopical anesthesia was used. Anesthetic medications included Lidocaine 3.5% gel. ProcedurePreparation included 5% betadine to ocular surface. A 32 gauge needle was used. Injection:1.25 mg bevacizumab 1.25 mg/0.05 mL ?Route: Intravitreal, Site: Left Eye ?[facility]: [address]-1, Lot: [id number], Expiration date: 11/05/2023 Post- opPost injection exam found visual acuity of at least counting fingers. The patient tolerated the procedure well. There were no complications. The patient received written and verbal post procedure care education. Post injection medications were not given. Notes Date of Service: 08/13/2023 Time out:Individual performing procedure identifiedCorrect patientCorrect siteCorrect procedure Surgeon: Royce Meléndez MD Eye: left PROCEDURE: IVT Avastin OS Allergies: Allergies Allergen Reactions Amoxicillin Unknown - See comments ?Blurry vision Bactrim [Sulfamethoxazole-Trimethoprim] Unknown - See comments Codeine Unknown - See comments ?Patient states it makes her feel worse, pain increases Flagyl [Metronidazole] Other - See comments ?Throat swelling Morphine Anxiety Phenergan [Promethazine Hcl] Nausea and/or Vomiting Tramadol Anxiety ?Pt felt "weird" Prep: Betadine 5% ? Anesthesia: Akten 3.5% JAYLEN LOZADA ?08/13/2023 ?11:15 AM [facility] WO [id number] 16:43:24 EXAM: MR LUMBAR SPINE WO CONTRAST HISTORY: 67 years-old Female; Provided indication: Stenosis lumberspine/Spondyloarthropathy lumber spine/bilateral low back pain withbilateral sciatica/lumber radiculopathy a Worsening low back pain due to HxStenosis lumber spine/Spondyloarthropathy lumber spine/bilateral low backpain with bilateral sciatica/lumber radiculopathy a. COMPARISON: Correlation with lumbar spine MRI 04/18/2021. TECHNIQUE: Multiplanar and multisequence MRI imaging of the lumbar spinewas obtained without contrast. FINDINGS: Mildly exaggerated lumbar lordosis seen. Bilateral L5 pars interarticularis defects with associated grade IIanterolisthesis of L5 over S1. Grade I anterolisthesis of L4 over L5. Thevertebral bodies are normal in height. The conus medullaris terminates at the level of L1. The cauda equina nerveroots are crowded at multiple levels, but most pronounced at L4-L5. Diffuse disc desiccation seen. There is severe decreased disc space atL5-S1 with Modic type II endplate degeneration and Schmorl's nodes. Noaggressive bone marrow signal alteration is present. L1-L2: Diffuse disc bulge with shallow central disc protrusion, moderatefacet arthrosis and ligamentum flavum thickening that results in moderatebilateral neural foraminal narrowing and mild spinal canal stenosis. L2- L3: Diffuse disc bulge with moderate facet arthrosis and ligamentumflavum thickening that results in moderate bilateral neural foramennarrowing and moderate spinal canal stenosis. There ismoderate bilateralsubarticular zone narrowing. L3-L4: Diffuse disc bulge with severe facet arthrosis and ligamentum flavumthickening that results in moderate bilateral neural foramen narrowing andmoderate spinal canal stenosis. Moderate right and mild left subarticularzone narrowing. L4-L5: Posterior disc uncovering with diffuse disc bulge, severe facetarthrosis and ligamentum flavum thickening and small central discprotrusion, this results in moderate to severe spinal canal stenosis andmoderate bilateral right more than left neural foraminal narrowing. Thereis moderate bilateral subarticularzone narrowing per L5-S1: Posterior disc uncovering with diffuse disc bulge, moderate facetarthrosis and ligamentum flavum thickening that results in mild spinalcanal stenosis and severe bilateral neural foraminal narrowing. There ispossible abutment on the bilateral descending S1 nerve roots (right morethan left). The paraspinal soft tissues are unremarkable. Right cortical renal cystmeasuring 1.3 cm noted.[facility], Pharmacologic Agent - OS - Left Eye 2023-07-09 16:59:12Table formatting from the original result was not included.Time Out07/09/2023. 10:58 AM. Confirmed correct patient, procedure, site, and patient consented. AnesthesiaTopical anesthesia was used. Anesthetic medications included Lidocaine 3.5% gel, Proparacaine 0.5%. ProcedurePreparation included 5% betadine to ocular surface. A 32 gauge needle was used. Injection:1.25 mg bevacizumab 1.25 mg/0.05 mL ?Route: Intravitreal, Site: Left Eye ?[facility]: [address]-5, Lot: [id number], Expiration date: 10/08/2023 Post- opPost injection exam found visual acuity of at least counting fingers. The patient tolerated the procedure well. There were no complications. The patient received written and verbal post procedure care education. Post injection medications were not given. Notes Date of Service: 07/09/2023 Time out:Individual performing procedure identifiedCorrect patientCorrect siteCorrect procedure Surgeon: Royce Meléndez MD Eye: left PROCEDURE: IVT Avastin OS Allergies: Allergies Allergen Reactions Amoxicillin Unknown - See comments ?Blurry vision Bactrim [Sulfamethoxazole-Trimethoprim] Unknown - See comments Codeine Unknown - See comments ?Patient states it makes her feel worse, pain increases Flagyl [Metronidazole] Other - See comments ?Throat swelling Morphine Anxiety Phenergan [PromethazineHcl] Nausea and/or Vomiting Tramadol Anxiety ?Pt felt "weird" Prep: Betadine 5% ? Anesthesia: Akten3.5% Keke Chery ?07/09/2023 ?10:25 AM [facility], Pharmacologic Agent - OS - Left [id number] 21:33:21Table formatting from the original result was not included.Time Out06/04/2023. 3:33 PM. Confirmed correct patient, procedure, site, and patient consented. AnesthesiaTopical anesthesia was used. Anesthetic medications included Lidocaine 3.5% gel, Proparacaine 0.5%. ProcedurePreparation included 5% betadine to ocular surface. A 32 gauge needle was used. Injection:1.25 mg bevacizumab 1.25 mg/0.05 mL ?Route: Intravitreal, Site: Left Eye ?[facility]: [address]-8, Lot: [id number], Expiration date: 09/10/2023 Post- opPost injection exam found visual acuity of at least counting fingers. The patient tolerated the procedure well. There were no complications. The patient received written and verbal post procedure care education. Post injection medications were not given. Notes Date of Service: 06/04/2023 Time out:Individual performing procedure identifiedCorrect patientCorrect siteCorrect procedure Surgeon: Royce Meléndez MD Eye: left PROCEDURE ?IVT Avastin OS Allergies: Allergies Allergen Reactions Amoxicillin Unknown - See comments ?Blurry vision Bactrim [Sulfamethoxazole-Trimethoprim] Unknown - See comments Codeine Unknown - See comments ?Patient states it makes her feel worse, pain increases Flagyl [Metronidazole] Other - See comments ?Throat swelling Morphine Anxiety Phenergan [Promethazine Hcl] Nausea and/or Vomiting Tramadol Anxiety ?Pt felt "weird" Prep: Betadine 5% ? Anesthesia: Akten 3.5% Keke Chery ?06/04/2023 ?3:24 PM [facility] HEMOGLOBIN A1C [id number] 19:56:00* Test Item Value Reference Range Interpretation Comme [facility] POCT HBA1C (test code = 4548-4) 7.6 % 4-6 A Lab Interpretation (test cod e = 08665-5) Abnormal [facility] HEMOGLOBIN A1C [id number] 19:56:00* Test Item Value Reference Range Interpretation Comme [facility] POCT HBA1C (test code = 4548-4) 7.6 % 4-6 A Lab Interpretation (test cod e = 74801-7) Abnormal [facility] GLUCOSE (AUTOMATED)2022-04-11 18:07:11* Test Item Value Reference Range Interpretation Comme [facility] POCT GLU (test code = 9644708797) 246 mg/dL 70-110 H Lab Interpretation (test cod e = 93037-0) Abnormal [facility] GLUCOSE (AUTOMATED)2022-04-11 18:07:11* Test Item Value Reference Range Interpretation Comme nts POCT GLU (test code = 5901062770) 246 mg/dL 70-110 H Lab Interpretation (test cod e = 42513-9) Abnormal [facility]AllenProthrombin Time / [id number] 17:57:26* Test Item Value Reference Range Interpretation Comme [facility] PROTUTE PATIENT (test code = 5964-2) See_Comment [Automated messa ge] The system which generated this result transmitted reference range: 10.1 - 12.6 Seconds. The reference range was not used to interpret this result as normal/abnormal. INR (test code = 6301-6) Normal INR <1.1; Warfarin Therapeutic range 2.0 to 3.0 or 2.5 to 3.5, depending upon the indications. Lab Interpretation (test code = 32014-4) Normal [facility]Allen[facility] Time / [id number] 17:57:26* Test Item Value Reference Range Interpretation Comme [facility] PROTUTE PATIENT (test code = 5964-2) See_Comment [Automated Coolirisa ge] The system which generated this result transmitted reference range: 10.1 - 12.6 Seconds. The reference range was not used to interpret this result as normal/abnormal. INR (test code = 6301-6) Normal INR <1.1; Warfarin Therapeutic range 2.0 to 3.0 or 2.5 to 3.5, depending upon the indications. Lab Interpretation (test code = 52666-6) Normal [facility] HEMOGLOBIN A1C [id number] 20:26:00* Test Item Value Reference Range Interpretation Comme [facility] POCT HBA1C (test code = 4548-4) 7.4 % 4-6 A Lab Interpretation (test cod e = 86108-9) Abnormal [facility] HEMOGLOBIN A1C [id number] 20:26:00* Test Item Value Reference Range Interpretation Comme [facility] POCT HBA1C (test code = 4548-4) 7.4 % 4-6 A Lab Interpretation (test cod e = 72162-7) Abnormal [facility] Notes Date/Time Note Provider Source 2023-11-30 10:34:54 Images from the original note were not included. Requested Renewals Name from pharmacy: Cyclobenzaprine HCl 10 MG Oral Tablet Will file in chart as: CYCLOBENZAPRINE 10 mg tablet Sig: TAKE 1 TABLET BY MOUTH IN THE MORNING , THEN TAKE 1 TABLET AT NOON, THEN TAKE 1 TABLET IN THE EVENING Disp: 90 tablet Refills: 0 Start: 11/28/2023 Class: eRX For: Lumbar radiculopathy; Chronic midline low back pain with bilateral sciatica; Multilevel degenerative disc disease; Spondyloarthropathy of lumbar spine; Spinal stenosis of lumbar region without neurogenic claudication; Chronic pain syndrome; Arthritis, multiple joint involvement; Anterolisthesis of lumbosacral spine Last ordered: 4 weeks ago (11/02/2023) by Rajni Momin MD Last refill: 11/02/2023 Rx #: [id number] Provider Review Required Khjzoh1911/28/2023 05:56 AM Protocol Details This refill cannot be delegated Valid encounter within last 12 months To be filled at: [facility] [address] [place] [address] 11-06-2023 NOV 05-11-2024 Ena Mary MA [facility] 2023-11-06 14:45:00 Images from the original note were not included. Venipuncture collection performed by clean technique on the left anticubitus. Total of 1 attempts were made. Slight pressure and a bandage/dressing were applied to the site(s). The patient experienced no complications. The following specimens were processed according to instructions and sent to [facility] laboratories per lab order on 11/06/2023: LT BLUE SST 2 RED LAV 2 PPT DK GREEN (LiHep) DK GREEN (SodH) VELOZ DK BLUE (K2) DK BLUE (S) ACD Blood Culture NIPT/NTD [facility] 2023-11-06 13:40:00 Your lab results are back and they are relatively normal except noted - A1c at goal of 7.0% and below. Currently 8.1% >>7.5% - CHOL improving 234 >> 210 - VIT D improved 20 >> 46 I will discuss the result in detail at follow-up visit. Continue the plans we discussed at your visit, including medication compliance, lifestyle and diet modification: lean meat, low fat, vegetables, nuts, low carb, increased fruits and exercise as tolerated. Maintain good hydration and avoid highly processed foods. Complete future/pending labs prior next appointment. I have included copies of the tests for your files. I will see you at your next appointment. Thanks. Sincerely, Rajni Momin MD, MPH [employer], Department of Family Medicine [facility] Primary & Specialty Care - [facility] 2023-11-02 13:14:51 Images from the original note were not included. Last OV: 07/29/23 with Rajni Momin MD Last Refill:09/28/23 prescribed by Rajni Momin MD Last Labs Pertaining to Med:07/29/23 Future Appt: Future Appointments Provider Department Dept Phone 11/06/2023 1:20 PM Rajni Momin MD [facility], [place] [phone] 11/06/2023 1:40 PM Rajni Momin MD [facility], [place] [phone] 12/03/2023 10:15 AM Royce Hernández MD [facility], [facility] [phone] 04/22/2024 11:30 AM Magnus Martin MD [facility] Endocrinology, [facility] [phone] Requested Renewals Name from pharmacy: Cyclobenzaprine HCl 10 MG Oral Tablet Will file in chart as: CYCLOBENZAPRINE 10 mg tablet Sig: TAKE 1 TABLET BY MOUTH IN THE MORNING , THEN TAKE 1 TABLET AT NOON, THEN TAKE 1 TABLET IN THE EVENING Disp: 90 tablet Refills: 0 Start: 11/02/2023 Class: eRX For: Lumbar radiculopathy; Chronic midline low back pain with bilateral sciatica; Multilevel degenerative disc disease; Spondyloarthropathy of lumbar spine; Spinal stenosis of lumbar region without neurogenic claudication; Chronic pain syndrome; Arthritis, multiple joint involvement; Anterolisthesis of lumbosacral spine Last ordered: 1 month ago (09/28/2023) by Rajni Momin MD Last refill: 09/01/2023 Rx #: [id number] Provider Review Required Nklwvu9411/02/2023 12:25 PM Protocol Details This refill cannot be delegated Valid encounter within last 12 months To be filled at: [facility] [address] [place] [address] Raquel Goode MA [facility] 2023-11-02 08:32:11 Pt was made aware to call clinic for f/u if pain did not improve. Alison Samano RN [facility] 2023-10-31 15:52:34 Please schedule appointment for pain if persisent [employer] MA[employer]GER[employer]AMILY MIDLEVEL PROVIDER [facility] 2023-10-30 16:42:12 Pt was triaged on 10/28/2023, please see TE. [facility] 2023-10-30 16:31:57 Images from the original note were not included. Placed in nurse folder. Sammi Ruiz [facility] 2023-10-28 15:36:33 Pt states feels a dull ache, pain "corner of head left side on the back", Pt states has had pain for 2 days on and off. When she turns her head to the right, feels stiff. Reports always has blurred vision, denies chest pain, SOB or other issues. Feels like "a popping" when turns her neck. Denies taking any OTC medications. Pt states took muscle relaxer's last night and does not help. Pt also states she has her BP taken today and was 100/70, denies any dizziness, SOB or chest pain. Offered pt appt tomorrow, declines states she would like to see , informed to keep BP log with BP readings 2x's a day, BP parameters reviewed, ER precautions given. Pt verbalizes understanding and agrees w/POC. Alison Samano RN [facility] 2023-10-28 15:24:50 Cornelia with [facility] is stating that the patient is complaining of a dull pulling pain through the lower left side of her head for 2 days. Patient is very concerned about it. Patient has no other symptoms. Nothing in particular makes it better or worse.Patient states if it doesn't get any better soon she will have to go the emergency room. There are no changes in vision and it doesn't radiate anywhere. Please call the patient at [phone] after 2pm. Hermilo Dinh [facility] 2023-10-28 14:24:17 Annual Wellness Visit - Pre Visit Outreach Patient name: Liss Rivera Patient First outreach attempt regarding Annual Wellness Visit. Call outcome: Spoke to patient she stated she has a paper copy already. HRA outcome: paper copy to bring with to appointment Future Appointments Provider Department Dept Phone 10/29/2023 10:00 AM Royce Hernández MD [facility] [phone] 11/06/2023 1:20 PM Rajni Momin MD [facility], [place] [phone] 11/06/2023 1:40 PM Rajni Momin MD [facility], [place] [phone] 04/22/2024 11:30 AM Magnus Martin MD [facility] Endocrinology, [facility] [facility] [phone] Audrey Bartholomew MA [facility] 2023-10-15 08:57:58 Images from the original note were not included. Episode Summary Report Phylicia Matias [facility] 2023-10-13 11:48:24 Informed Elizabeth with [facility] for re-certification, states done every 3 months for education. Pt has appt 11/2023 for follow up. Alison Samano RN [facility] 2023-10-13 08:50:19 Elizabeth with [facility] health requesting call back to re certify the patient for home health. Please advise. Atul Schwarz [facility] 2023-10-01 13:36:40 Images from the original note were not included. Scanned in folder and placed in provider basket for review. Genna Gray [facility] 2023-09-28 07:26:41 Images from the original note were not included. Requested Renewals Name from pharmacy: Cyclobenzaprine HCl 10 MG Oral Tablet Will file in chart as: CYCLOBENZAPRINE 10 mg tablet Sig: TAKE 1 TABLET BY MOUTH IN THE MORNING , THEN TAKE 1 TABLET AT NOON, THEN TAKE 1 TABLET IN THE EVENING Disp: 90 tablet Refills: 0 Start: 09/28/2023 Class: eRX For: Lumbar radiculopathy; Chronic midline low back pain with bilateral sciatica; Multilevel degenerative disc disease; Spondyloarthropathy of lumbar spine; Spinal stenosis of lumbar region without neurogenic claudication; Chronic pain syndrome; Arthritis, multiple joint involvement; Anterolisthesis of lumbosacral spine Last ordered: 2 months ago (07/29/2023) by Rajni Momin MD Last refill: 09/01/2023 Rx #: [id number] Provider Review Required Bszmsw3909/28/2023 05:53 AM Protocol Details This refill cannot be delegated Valid encounter within last 12 months To be filled at: [facility] [address] Recent Visits Date Type Provider Dept 07/29/23 Office Visit Rajni Momin MD [facility] Family Medicine 01/13/23 Office Visit Rajni Momin MD [facility] Family Medicine 09/03/22 Office Visit Rajni Momin MD [facility] Family Medicine 09/03/22 Office Visit Rajni Momin MD [facility] Family Medicine 04/23/22 Office Visit Rajni Momin MD [facility] Family [facility] Showing recent visits within past 540 days with a meds authorizing provider and meeting all other requirements Future Appointments Date Type Provider Dept 11/06/23 Appointment Rajni oMmin MD [facility] Family Medicine 11/06/23 Appointment Rajni Momin MD [facility] Showing future appointments within next 150 days with a meds authorizing provider and meeting all other requirements Annika Rebolledo LVN [facility] 2023-09-24 10:06:34 Images from the original note were not included. Faxed to [facility] Him department. Genna Gray [facility] 2023-08-31 07:59:55 Discharged to self care. F/u with pcp for monitoring FM-FAMILY MEDICINE STAFF [facility] 2023-08-24 12:23:04 Called patient and informed message below per Tanisha. Patient states mrialax has not been helping. Per LILIBETH Sauceda a OV will be recommend. Patient has been schedule for 09-01-2023 at 10:30 am. Ena Mary MA [facility] 2023-08-24 08:33:29 High fiber diet: Plenty of fruit, vegetables, whole grain foods May take an OTC Fiber Supplement such as Metamucil Daily Can take Miralax as needed Probiotic Daily Plenty of water Walking and exercise Daily ER for abdominal pain, fever, vomiting, blood from rectum, weakness, dizziness, unable to void or any concerns Please follow up in clinic for no improvement, for further prescriptions CUSTOMS MANAGER-FAMILY MIDLEVEL PROVIDER [facility] 2023-08-21 15:24:58 Routing to provider for review and to see if lactulose will be appropriate. [facility] 2023-08-21 14:43:40 Cornelia the patient's home health nurse requesting to speak with nurse. Patient is having some difficulty with constipation and wanting to see if lactulose would be appropriate for the patient and if so if it can be sent to pharmacy. Concerned about it raising her blood sugar. When calling back, please call the patient. Please advise. [facility] [address] [place] [id number] Atul Schwarz [facility] 2023-08-21 09:02:26 Medical record received from Alvin Fernie scanned in folder and placed in provider basket for review. Genna Gray [facility] 2023-08-07 10:13:16 Patient was rescheduled to 08/12. Mirtha Gale [facility] 2023-08-06 07:45:11 Liss Rivera is a 67 year old female Patient is calling to cancel today's Injection appointment, but is requesting to reschedule for some time this month. Please contact when available Lesly Lopez [facility] 2023-07-30 15:46:40 Forms completed and faxed to [phone]. Alison Samano RN [facility] 2023-07-29 16:30:00 Images from the original note were not included. Venipuncture collection performed by clean technique on the left forearm(s). Total of 1 attempts were made. Slight pressure and a bandage/dressing were applied to the site(s). The patient experienced no complications. The following specimens were processed according to instructions and sent to [facility] laboratories per lab order on 07/29/2023 : LT BLUE 2 SST RED 2 LAV PPT DK GREEN (LiHep) DK GREEN (SodH) VELOZ DK BLUE (K2) DK BLUE (S) ACD Blood Culture NIPT/NTD Patient has been identified by and name and was provided with cup, antiseptic towelette, and clean catch instructions. 1 urine specimen(s) sent. 1 Unpreserved Urine Culture Aptima tube Other urine [facility] 2023-07-29 15:49:40 Patient here for visit to discuss paper work Raquel Goode MA 07/29/2023 3:50 PM Raquel Goode MA [facility] 2023-07-29 12:43:50 Images from the original note were not included. Forms received Alvin Fernie placed in nurse fax folder. Phylicia Matias [facility] 2023-07-29 12:39:24 Routing to correct clinic Suri Oden LVN [facility] 2023-07-29 12:19:23 Aurelio Esquivel [facility] [phone] Received incomplete paperwork for home health Needs a medical diagnosis codes and secondary page to be filled out. Can take info verbally. Requesting expedite attn to this matter, Please F/u Vince Cano [facility] 2023-07-24 16:02:53 Per forms to be filled out at on 07/29/2023. Pt notified, forms in nurse cabinet. Alison Samano RN [facility] 2023-07-23 16:23:18 Images from the original note were not included. Phylicia Matias [facility] 2023-07-02 15:35:51 Images from the original note were not included. Routed to provider for review. Unable to refill per ambulatory refill guidelines. Notes: Name from pharmacy: Cyclobenzaprine HCl 10 MG Oral Tablet Will file in chart as: CYCLOBENZAPRINE 10 mg tablet Sig: TAKE 1 TABLET BY MOUTH IN THE MORNING , THEN TAKE 1 TABLET AT NOON, THEN TAKE 1 TABLET IN THE EVENING Disp: 90 tablet Refills: 0 Start: 07/02/2023 Class: eRX For: Lumbar radiculopathy; Chronic midline low back pain with bilateral sciatica; Multilevel degenerative disc disease; Spondyloarthropathy of lumbar spine; Spinal stenosis of lumbar region without neurogenic claudication; Chronic pain syndrome; Arthritis, multiple joint involvement; Anterolisthesis of lumbosacral spine Last ordered: 8 months ago (10/31/2022) by Rajni Momin MD Last refill: 06/01/2023 Rx #: [id number] Provider Review Required Jszeir7307/02/2023 03:23 PM Protocol Details This refill cannot be delegated Valid encounter within last 12 months To be filled at: [address] Last Refilled: 06/01/2023 Recent Visits Date Type Provider Dept 01/13/23 Office Visit Rajni Momin MD [facility] Family Medicine 09/03/22 Office Visit Rajni Momin MD [facility] Family Medicine 09/03/22 Office Visit Rajni Momin MD [facility] Family Medicine 04/23/22 Office Visit Rajni Momin MD [facility] Family Medicine 01/17/22 Office Visit Rajni Momin MD [facility] Family Medicine Showing recent visits within past 540 days with a meds authorizing provider and meeting all other requirements Future Appointments Date Type Provider Dept 07/29/23 Appointment Rajni Momin MD [facility] Family Medicine Showing future appointments within next 150 days with a meds authorizing provider and meeting all other requirements E WIRER Sarita Sneed MA [facility] 2023-06-03 08:20:46 Spoke with patient and went over issue with getting her refill on her strips. Provider is not in clinic until Thursday. He has not been here in a couple of weeks and currently has no access to a fax until afternoon. Told patient I will try to have provider sign the form then as I will fax it to whatever location he is at so we can get this done and she can get her strips. Narvaez LVN [facility] 2023-06-02 15:10:42 Received Medicare Usage Necessity High Utilization form from [employer] requesting Providers signature. Placed in Providers Box. Portillo [facility] 2023-06-02 13:54:20 Liss Rivera is a 67 year old female Patient calling in requesting to speak with Nelida, in regards to her diabetic testing strips. Pt is aware Dr. Martin will not be at the location until Thursday (06/05/23) and the form will be signed and faxed back then. Pt states she's been waiting for over a week. Please advise [phone] Baig [facility] 2023-06-02 13:21:30 Left voicemail with Katina to let them know Dr. Martin will not be in this location until Thursday (06/05/23) and the form will be signed and faxed back then. Narvaez LVN [facility] 2023-06-02 12:03:04 [employer] calling to check the status of a Medicare Usage Necessity High Utilization form has been received and completed for rx blood sugar diagnostic (ACCU-CHEK GUIDE TEST STRIPS) strip . Pls advise. Mcgill [facility] 2023-06-02 12:02:10 Liss Rivera is a 67 year old female Pt is calling because she needs her testing strips. Pt states that Dr. Martin needs to fill out a form and send it back to the pharmacy in order for them to fill the RX. Pt tests BS QID. Please advise Carson [facility] 2023-06-01 11:18:30 Rx sent, let patient know, and to follow-up as scheduled. [facility] 2023-06-01 09:17:11 Images from the original note were not included. E WIRER Phylicia Matias [facility] 2023-05-29 13:28:27 Images from the original note were not included. Notes: Return in about 3 months (around 04/14/2023), or if symptoms worsen or fail to improve. After Visit Summary (Automatic SnapShot taken 01/13/2023) Last Refilled: Name from pharmacy: DULoxetine HCl 30 MG Oral Capsule Delayed Release Particles Will file in chart as: DULOXETINE 30 mg capsule Sig: TAKE 1 CAPSULE BY MOUTH ONCE DAILY FOR ANXIETY Original sig: TAKE 1 CAPSULE BY MOUTH ONCE DAILY FOR ANXIETY Disp: 90 capsule Refills: 0 Start: 05/29/2023 Class: eRX For: Lumbar radiculopathy; Chronic midline low back pain with bilateral sciatica; Multilevel degenerative disc disease; Spondyloarthropathy of lumbar spine; Spinal stenosis of lumbar region without neurogenic claudication; Depression, major, recurrent, moderate; Chronic pain syndrome; Arthritis, multiple joint involvement; Anxiety; Anterolisthesis of lumbosacral spine Last ordered: 2 months ago (03/02/2023) by Rajni Momin MD Last refill: 03/02/2023 Rx #: [id number] Neuropathic Pain Rmrlhv0805/29/2023 05:52 AM Protocol Details Manual Review: Verify no changes in dose in the last 3 months Valid encounter within last 12 months To be filled at: [facility] [address] Recent Visits Date Type Provider Dept 01/13/23 Office Visit Rajni Momin MD [facility] Family Medicine 09/03/22 Office Visit Rajni Momin MD [facility] Family Medicine 09/03/22 Office Visit Rajni Momin MD [facility] Family Medicine 04/23/22 Office Visit Rajni Momin MD [facility] Family Medicine 01/17/22 Office Visit Rajni Momin MD [facility] Family Medicine Showing recent visits within past 540 days with a meds authorizing provider and meeting all other requirements Future Appointments Date Type Provider Dept 07/29/23 Appointment Rajni Momin MD [facility] Family [facility] Showing future appointments within next 150 days with a meds authorizing provider and meeting all other requirements Garcia MA [facility] 2023-05-28 08:22:57 Images from the original note were not included. Villatoro [facility] 2023-05-22 08:55:08 Liss Rivera is a 67 year old female [phone] (home) Pt is returning call.pt can take the 06/04 appt if it can be at 2:00 or after if not pt will keep the 2/8 appt. Please call and advise Tamayo [facility] 2023-05-22 08:29:24 Liss Rivera is a 67 year old female Patient is not able to come on 05/28/23 or 06/04/23. Patient is schedule for 06/11/23. E WIRER Jocelin Shahid [facility] 2023-05-21 15:01:13 Liss Rivera is a 67 year old female Pt is calling to check other available dates for injections on 05/28/2023. No schedule is available. Please advise. [phone] (home) E WIRER Peña Krueger [facility] 2023-05-05 07:37:33 Images from the original note were not included. Requested Renewals Name from pharmacy: Gabapentin 100 MG Oral Capsule Will file in chart as: GABAPENTIN 100 mg capsule Sig: TAKE 1 CAPSULE BY MOUTH TWICE DAILY NEEDED FOR PAIN ( SCALE 7-10) Disp: 180 capsule Refills: 0 Start: 05/05/2023 Class: eRX For: Lumbar radiculopathy; Chronic midline low back pain with bilateral sciatica; Multilevel degenerative disc disease; Spondyloarthropathy of lumbar spine; Spinal stenosis of lumbar region without neurogenic claudication; Chronic pain syndrome; Arthritis, multiple joint involvement; Anterolisthesis of lumbosacral spine Last ordered: 8 months ago (09/03/2022) by Rajni Momin MD Last refill: 02/09/2023 Rx #: [id number] Neuropathic Pain Iluelw0705/05/2023 05:53 AM Protocol Details Manual Review: Verify no changes in dose in the last 3 months Valid encounter within last 12 months To be filled at: [facility] [address] [place] [address] 01-13-2023 NOV 07-29-2023 E WIRER Ena Mary MA [facility] 2023-01-08 10:30:00 Formatting of this n ote is different from the original. Images from the original note were not included. Venipuncture collection performed by clean technique on the left anticubitus. Total of 1 attempts were made. Slight pressure and a bandage/dressing were applied to the site(s). The patient experienced no complications. The following specimens were processed according to instructions and sent to [facility] laboratories per lab order on 01/08/2023 : LT BLUE SST RED LAV 1 PPT DK GREEN (LiHep) DK GREEN (SodH) VELOZ DK BLUE (K2) DK BLUE (S) ACD Blood Culture NIPT/NTD Patient has been identified by and was provided with cup, antiseptic towelette, and clean catch instructions. 1 urine specimen(s) sent. Unpreserved 1 Urine Culture Aptima tube Other urine T [facility] 2022-12-08 11:29:13 Formatting of this n ote might be different from the original. Form signed by provider and faxed to [phone]. Jennifer Almeida RN [facility] 2022-11-27 11:06:57 Formatting of this n ote might be different from the original. Medical Necessity form for high utilization received from [facility]. Form completed and placed in provider's folder for review and signature. Will fax to [phone] once completed Derrick Rodríguez RN [facility] 2022-11-22 14:45:49 Formatting of this n ote might be different from the original. NOV: 03/20/23 SASKIA: 08/22/22 Refill sent Jennifer Almeida RN [facility] 2022-11-18 15:22:35 Formatting of this n ote might be different from the original. Images from the original note were not included. T [facility]
--- NOTE | 2023-12-07 16:15 | RAD REPORT ---
EXAM DESCRIPTION: Javed Single View12/07/2023 4:06 pm CLINICAL HISTORY: Chest pain COMPARISON: 2021 FINDINGS: The lungs appear clear of acute infiltrate. The heart is normal size IMPRESSION: No acute abnormalities displayed
[2023-12-07 16:25] LABS: Specific Gravity 1.012 (1.005-1.030); Sqamous Epithelial <5 /HPF (None Seen); Urine Bacteria None Seen /HPF (<20); Urine Bilirubin NEGATIVE (Negative); Urine Blood Negative (Negative); Urine Clarity Turbid (Clear); Urine Color Light-Yellow (Yellow); Urine Culture Reflex Order NOT NEEDED; Urine Glucose NEGATIVE (Negative); Urine Ketones TRACE (Negative); Urine Microscopic Reflex YN ORDER UMIC; Urine Mucus Slight /HPF (None Seen); Urine Nitrite NEGATIVE (Negative); Urine Protein NEGATIVE (Negative); Urine RBC <5 /HPF (None Seen); Urine Urobilinogen Normal (Normal); Urine WBC <5 /HPF (<5); Urine pH 5.5 (5.0-7.0)
[2023-12-07 16:31] LABS: Absolute Basophils 0.1 K/uL (0-0.5); Absolute Eosinophils 0.1 K/uL (0-0.5); Absolute Monocytes 0.4 K/uL (0.1-1.3); Absolute Neutrophil 4.4 K/uL (1.8-8.0); Basophils % 1.1 % (0-1.3); Eosinophils % 1.6 % (0-4.4); Hemoglobin 12.8 g/dL (12.0-15.0); Lymphocytes % 37.7 % (15.3-44.8); MCH 30.6 pg (27.0-35.0); MCHC 32.9 g/dL (32.0-36.0); MCV 92.9 fL (80-100); MPV 8.5 fL (7.6-11.3); Monocytes % 4.7 % (3.3-12.3); Neutrophils % 54.9 % (41.7-73.7); Platelets 245 thou/uL (152-406); Red Cell Distribution Width 13.4 % (12.1-15.2)
[2023-12-07 16:39] LABS: ALT/SGPT 36 U/L (13-56); AST/SGOT 37 U/L (15-37); Albumin 3.6 g/dL (3.4-5.0); Albumin/Globulin Ratio 0.8 (1.1-1.8); Alkaline Phosphatase 116 U/L (45-117); BUN Blood Urea Nitrogen 13 mg/dL (7-18); Bicarbonate 30 mEq/L (21-32); Bilirubin Total 0.6 mg/dL (0.2-1.0); Globulin 4.3 g/dL (2.3-3.5); Glomerular Filtration Rate 78 ml/min (=/>90); Glucose Level 195 mg/dL (74-106); NT PRO-BNP 25 pg/mL (<125); PT Prothrombin Time 11.7 SECONDS (9.4-12.5); Protein, Total 7.9 g/dL (6.4-8.2); Protime INR 1.05; Sodium Level 137 mEq/L (136-145)
[2023-12-07 16:43] LABS: Troponin High Sensitivity < 3.0 pg/mL (<58.9)
[2023-12-07 18:04] LABS: SARS-CoV-2 Antigen CONTROL BLUE LINE VIS/BG OK; SARS-CoV-2 Antigen Rapid Res Negative (Negative)
--- NOTE | 2023-12-07 18:11 | ER ---
Nurse's Notes [facility] Name: Liss Ro Age: 68 yrs Sex: Female : 1955 Arrival Date: 12/07/2023 Time: 14:56 Bed 6 Private MD: Diagnosis: Dizziness and giddiness Presentation: 12/06 15:28 Chief complaint: Dysuria, nausea, chills, generalized weakness, dizziness, and right hb low back pain x 3 days. Coronavirus screen: At this time, the client does not indicate any symptoms associated with coronavirus-19. Ebola Screen: No symptoms or risks identified at this time. Initial Sepsis Screen: Does the patient meet any 2 criteria? No. Patient's initial sepsis screen is negative. Does the patient have a suspected source of infection? No. Patient's initial sepsis screen is negative. Risk Assessment: Do you want to hurt yourself or someone else? Patient reports no desire to harm self or others. Onset of symptoms was December 05, 2023. 15:28 Method Of Arrival: Ambulatory hb 15:28 Acuity: MALINI 3 hb Triage Assessment: 15:30 General: Appears in no apparent distress. uncomfortable, Behavior is cooperative, bp appropriate for age, anxious. Pain: Complains of pain in back. EENT: No deficits noted. Neuro: Reports dizziness. Cardiovascular: Rhythm is sinus rhythm. Respiratory: No deficits noted. GI: No signs and/or symptoms were reported involving the gastrointestinal system. : Reports burning with urination, pain in lower back. Derm: No deficits noted. Musculoskeletal: No deficits noted. Historical: - Allergies: 15:29 Bactrim; hb 15:29 Codeine; hb 15:29 Flagyl; hb 15:29 Morphine; hb 15:29 Sulfa (Sulfonamide Antibiotics); hb 15:29 tramadol; hb - PMHx: 15:29 Anxiety; Diabetes - IDDM; Herniated disc; Hypertension; Positional Vertigo; PTSD; hb - Immunization history:: Adult Immunizations up to date. - Infectious Disease History:: Denies. - Social history:: Smoking status: Patient denies any tobacco usage or history of. Screenin:44 [facility] ED Fall Risk Assessment (Adult) History of falling in the last 3 months, bp including since admission No falls in past 3 months (0 pts) Confusion or Disorientation No (0 pts) Intoxicated or Sedated No (0 pts) Impaired Gait Yes (1 pt) Mobility Assist Device Used Yes (1 pt) Altered Elimination No (0 pt) Score/Fall Risk Level 0 - 2 = Low Risk. Abuse screen: Denies threats or abuse. Denies injuries from another. Nutritional screening: No deficits noted. Tuberculosis screening: No symptoms or risk factors identified. Assessment: 15:30 General: Appears in no apparent distress. Behavior is cooperative, appropriate for age, bp anxious. 16:43 Reassessment: Patient appears in no apparent distress at this time. Patient is alert, bp oriented x 3, equal unlabored respirations, skin warm/dry/pink. Vital Signs: 15:28 BP 154 / 66; Pulse 93; Resp 18; Temp 99.3(O); Pulse Ox 98% on R/A; Weight 75.75 kg; hb Height 4 ft. 11 in. ; Pain 5/10; 16:43 BP 113 / 56; Pulse 74; Resp 16; Pulse Ox 100% ; bp 15:28 Body Mass Index 33.73 (75.75 kg, 149.86 cm) hb 15:28 Pain Scale: Adult hb ED Course: 15:02 Patient arrived in ED. ra3 15:07 Radha Veloz MD is Attending Physician. gb1 15:22 Niels Hopper RN is Primary Nurse. bp 15:22 Arm band placed on Patient placed in an exam room, on a stretcher. hb 15:29 Triage completed. hb 16:08 XRAY Chest (1 view) In Process Unspecified. EDMS 16:08 Initial lab(s) drawn, by nc, sent to lab. Urine collected: clean catch specimen, clear, bp EKG done, by ED staff, reviewed by Radha Veloz MD. Inserted saline lock: 20 gauge in right antecubital area, using aseptic technique. Blood collected. Flushed with 10 mL NS. 16:44 Patient has correct armband on for positive identification. bp Administered Medications: No medications were administered Outcome: 18:10 Discharge ordered by . gb1 18:50 Patient left the ED. ll1 Signatures: Dispatcher [employer] EDHI Ewelina Villatoro RN RN hb Peltier, Brian, RN RN bp Lewis, Lynsay, RN RN ll1 Magdiel, Radha, MD MD gb1 Watson, Aretha ra3
--- NOTE | 2023-12-07 18:11 | EDPHYS ---
Physician Documentation [facility] Name: Liss Ro Age: 68 yrs Sex: Female : 1955 Arrival Date: 12/07/2023 Time: 14:56 Bed 6 Private MD: ED Physician Radha Veloz HPI: 12/06 17:19 This 68 yrs old Female presents to ER via Ambulatory with complaints of gb1 Dizziness, Urinary Problem, General Weakness. 17:19 68-year-old female who lives in assisted living has been having subjective gb1 fever and chills at home intermittently. She denies cough or diarrhea. No nausea vomiting. States patient states that she feels very anxious and otherwise generally weak. She also feels like she is going back and forth to the restroom. She has no pain or burning with urination but just frequency of her urination. She has a history of interdependent diabetes and her sugars run in the 200s. She has not eaten today.. Historical: - Allergies: 15:29 Bactrim; hb 15:29 Codeine; hb 15:29 Flagyl; hb 15:29 Morphine; hb 15:29 Sulfa (Sulfonamide Antibiotics); hb 15:29 tramadol; hb - PMHx: 15:29 Anxiety; Diabetes - IDDM; Herniated disc; Hypertension; Positional Vertigo; PTSD; hb - Immunization history:: Adult Immunizations up to date. - Infectious Disease History:: Denies. - Social history:: Smoking status: Patient denies any tobacco usage or history of. Exam: 17:19 Constitutional: This is a well developed, well nourished patient who is awake, alert, gb1 and in no acute distress. Head/Face: Normocephalic, atraumatic. Eyes: Pupils equal round and reactive to light, extra-ocular motions intact. Lids and lashes normal. Conjunctiva and sclera are non-icteric and not injected. Cornea within normal limits. Periorbital areas with no swelling, redness, or edema. ENT: Nares patent. No nasal discharge, no septal abnormalities noted. Tympanic membranes are normal and external auditory canals are clear. Oropharynx with no redness, swelling, or masses, exudates, or evidence of obstruction, uvula midline. Mucous membranes moist. Neck: Trachea midline, no thyromegaly or masses palpated, and no cervical lymphadenopathy. Supple, full range of motion without nuchal rigidity, or vertebral point tenderness. No Meningismus. Chest/axilla: Normal chest wall appearance and motion. Nontender with no deformity. No lesions are appreciated. Cardiovascular: Regular rate and rhythm with a normal S1 and S2. No gallops, murmurs, or rubs. Normal PMI, no JVD. No pulse deficits. Respiratory: Lungs have equal breath sounds bilaterally, clear to auscultation and percussion. No rales, rhonchi or wheezes noted. No increased work of breathing, no retractions or nasal flaring. Abdomen/GI: Soft, non-tender, with normal bowel sounds. No distension or tympany. No guarding or rebound. No evidence of tenderness throughout. Back: No spinal tenderness. No costovertebral tenderness. Full range of motion. Skin: Warm, dry with normal turgor. Normal color with no rashes, no lesions, and no evidence of cellulitis. MS/ Extremity: Pulses equal, no cyanosis. Neurovascular intact. Full, normal range of motion. Neuro: Awake and alert, GCS 15, oriented to person, place, time, and situation. Cranial nerves II-XII grossly intact. Motor strength 5/5 in all extremities. Sensory grossly intact. Cerebellar exam normal. Normal gait. Vital Signs: 15:28 BP 154 / 66; Pulse 93; Resp 18; Temp 99.3(O); Pulse Ox 98% on R/A; Weight 75.75 kg; hb Height 4 ft. 11 in. ; Pain 5/10; 16:43 BP 113 / 56; Pulse 74; Resp 16; Pulse Ox 100% ; bp 15:28 Body Mass Index 33.73 (75.75 kg, 149.86 cm) hb 15:28 Pain Scale: Adult hb MDM: 15:29 Patient medically screened. gb1 17:19 Data reviewed: vital signs, nurses notes, lab test result(s), CBC, electrolytes, gb1 urinalysis. 18:11 ED course: 68 year-old female with dizziness and weakness as her blood sugars remain gb1 labile due to her poor diabetic diet. She is not currently in DKA today. Her COVID and flu test are normal. I have encouraged her to follow a strict diabetic diet to have better glycemic control for resolution of symptoms. I doubt this is acute coronary syndrome for TIA versus CVA.. 12/06 15:30 Order name: CBC with Diff; Complete Time: 16:43 gb1 12/06 15:30 Order name: CMP; Complete Time: 16:43 gb1 12/06 15:30 Order name: Urinalysis w/ reflexes; Complete Time: 16:43 gb1 12/06 15:30 Order name: NT PRO-BNP; Complete Time: 16:43 gb1 12/06 15:30 Order name: PT-INR; Complete Time: 16:43 gb1 12/06 15:30 Order name: Troponin HS; Complete Time: 16:43 gb1 12/06 16:52 Order name: Glucose, Ancillary Testing; Complete Time: 16:53 EDMS 12/06 17:04 Order name: SARS RAPID; Complete Time: 18:09 gb1 12/06 17:04 Order name: Influenza Screen (a \T\ B); Complete Time: 18:09 gb1 12/06 15:30 Order name: XRAY Chest (1 view); Complete Time: 16:16 gb1 12/06 15:30 Order name: EKG; Complete Time: 15:31 gb1 12/06 15:30 Order name: IV Saline Lock; Complete Time: 16:08 gb1 12/06 15:30 Order name: Labs collected and sent; Complete Time: 16:08 gb1 12/06 15:30 Order name: Cardiac monitoring; Complete Time: 15:34 gb1 12/06 15:30 Order name: EKG - Nurse/Tech; Complete Time: 16:08 gb1 12/06 15:30 Order name: O2 Per Protocol; Complete Time: 15:34 gb1 12/06 15:30 Order name: O2 Sat Monitoring; Complete Time: 15:34 gb1 Administered Medications: No medications were administered Disposition Summary: 12/07/23 18:10 Discharge Ordered Notes: Location: Home gb1 Condition: Stable gb1 Diagnosis - Dizziness and giddiness gb1 Followup: gb1 - With: Private Physician - When: 48 Hours - Reason: If symptoms return Discharge Instructions: - Discharge Summary Sheet gb1 - Carbohydrate Counting for Diabetes Mellitus, Adult gb1 - Dizziness gb1 Forms: - Medication Reconciliation Form gb1 - Antibiotic Education gb1 - Prescription Opioid Use gb1 - Patient Portal Instructions gb1 - Leadership Thank You Letter gb1 Signatures: Dispatcher [employer] Ewelina Downs, KAVITA RN Radha Lowe MD MD gb1
[2023-12-07 22:38] VITALS: TEMP 99.3
[2023-12-07 22:40] VITALS: BP 113/56; O2SAT 100
--- NOTE | 2023-12-08 17:07 | EKG ---
Test Date: 2023-12-07 Test Time: 16:11:02 Jig Grinder Set Up Operator: MUKUND MEASUREMENT RESULTS: Intervals: Rate: 82 NH: 160 QRSD: 116 QT: 408 QTc: 476 [place]: P: 54 NH: 160 QRS: -28 T: 31 INTERPRETIVE STATEMENTS: Normal sinus rhythm Right bundle branch block Abnormal ECG Compared to ECG 01/08/2022 18:02:48 No significant changes Electronically Signed On 12-08-23 17:04:42 CDT by Tariq Quarles
== END 2023-12-07 18:50 | disposition home or self-care (01) ==
LOC: ER 14:56
DX: R42 Dizziness and giddiness (principal); R53.1 Weakness; Z11.52 Encounter for screening for COVID-19
CPT/HCPCS: 36415; 71045; 80053; 81001; 82947; 83880; 84484; 85025; 85610; 87804; 87811; 93005; 99283

== ENCOUNTER 2023-12-29 19:34 | Emergency (ER) | payer OTHER ==
--- OUTSIDE RECORDS SUMMARY | 2023-12-29 19:43 | XMS REPORT | Continuity of Care Document ---
Author Name Unknown Address [address] [facility] [address] [place] [address] [facility] Address [address] [facility] [address] [place] [address] Care Team Providers Care Dialysis Tech Name Role Phone RAJNI MOMIN Primary Care Physician Unavaila RAJNI Zimmer Attending Clinician Unavailable MAGNUS MARTIN Attending Clinician UnavailROYCE Leung Attending Clinician UnavailRajni De Anda MD Attending Clinician [phone] Royce Hernández MD Attending Clinician [phone] Rajni Momin MD Attending Clinician [phone] 2, [facility] Attending Clinician Unavailable Audrey Bartholomew MA Attending Clinician UnavailOsiris Lagos MD Attending Clinician + [phone] Magnus Martin MD Attending Clinician [phone] Doctor Unassigned, [place]aca Attending Clinician U CASTILLO Reddy Attending Clinician Unavailable SARITA SOLIZ Attending Clinician Unavailable Jack Chang NP Attending Clinician [phone] Alan FINANCE BUSINESS MANAGERAva Attending Clinician Unajose ilable Pob, [facility] Main Attending Clinician UnavailLISS Rubio Attending Clinician Unavaila ble Lab, Ang - Db Attending Clinician Unavailable JAMES HARMON Attending Clinician Unavailable Castillo Guerra MD Attending Clinician [phone] [facility] [place] Attending Clinician [phone] OSIRIS MIRANDA Attending Clinician Rain Tobar Attending Clinician [phone] RAIN CALLE Attending Clinician UnavailRajni Ibarra MD Attending Clinician [phone] Ovidio WALLS, Kaveh Orellana Attending Clinician Unavailabl Keshawn Kapadia Attending Clinician Unavailable Samuel BANKS, Kee Attending Clinician [phone] KEE EDMONDS Attending Clinician Unavailable MARCIAL NORMAN Attending Clinician Unavail able MARCIAL NORMAN Attending Clinician Unavail able Rolando BANKS, Marcial Oquendo Attending Clinician [phone] DIANNE CHOPRA Attending Clinician Unavailab mahsa Vu MD, Sendil K.H. Attending Clinician + [phone] MIRELLA, SENDIL K.H. Attending Clinician Unavaila BEATRICE Edwards Attending Clinician Mame Chopra MD, Dianne Puentes Attending Clinician [phone] Nurse, Ang Endo/Diab Attending Clinician Unavail able JACK CHANG Attending Clinician Unavailab YULI Rueda Attending Clinician Unavailabl JUSTYN Park Attending Clinician Unavailabl e PENELOPE JENNINGS [...] Unavailab mahsa VU, SENDSUPA K.HEulalia Admitting Clinician Unavaila OSIRIS Sawant Admitting Clinician BOO Schmidt Admitting Clinician Unavailable JUSTYN PHILLIPS Admitting Clinician Unavailcamille bell Payers Payer Name Policy Type Policy Number Effective Date Expirati on Date Source MEDICARE PART A \\T\\ [id number] 2006 00:00:00 [facility] [id number] 2022 00:00:00 2024 00:00:00 Problems Condition Name Condition Details Condition Category Status Onset Date Resolution Date Last Treatment Date Treating Clinician Comments Source Depression , major, recurrent, moderate Depression , major, recurrent, moderate Disease Active 3-27 00:00: 00 [facility] Arthritis, multiple joint involvemen t Arthritis, multiple joint involvemen t Disease Active 01-13 00:00: 00 [facility] 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 Disease Active 01-13 00:00: 00 [facility] Lumbar radiculopa thy Lumbar radiculopa thy Disease Active - 00:00: 00 [facility] Multilevel degenerati ve disc disease Multilevel degenerati ve disc disease Disease Active 5- 00:00: 00 [facility] 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 Disease Active - 00:00: 00 [facility] Spinal stenosis of lumbar region without neurogenic claudicati on Spinal stenosis of lumbar region without neurogenic claudicati on Disease Active - 00:00: 00 [facility] Chronic pain syndrome Chronic pain syndrome Disease Active 5- 00:00: 00 [facility] Anxiety and depression Anxiety and depression Disease Active 5-03 00:00: 00 [facility] Chest pain, unspecifie d type Chest pain, unspecifie d type Disease Active 5- 00:00: 00 [facility] Carotid artery plaque, bilateral Carotid artery plaque, bilateral Disease Active 2021-05 00:00: 00 [facility] Cerebral aneurysm without rupture Cerebral aneurysm without rupture Disease Active 2021-05 00:00: 00 [facility] Arterioven ous abnormalit y of orbit Arterioven ous abnormalit y of orbit Disease Active 01-17 00:00: 00 [facility] Chronic constipati on Chronic constipati on Disease Active 01-17 00:00: 00 [facility] 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 Disease Active 01-17 00:00: 00 [facility] Hospital discharge follow-up Hospital discharge follow-up Disease Active 01-17 00:00: 00 [facility] Obesity (BMI 30-39.9) Obesity (BMI 30-39.9) Disease Active 08-29 00:00: 00 [facility] DAVIS (obstructi ve sleep apnea) DAVIS (obstructi ve sleep apnea) Disease Active 08-21 00:00: 00 [facility] Vulvar lesion Vulvar lesion Disease Active 05-30 00:00: 00 [facility] Lichen sclerosus Lichen sclerosus Disease Active 05-22 00:00: 00 [facility] Postmenopa usal status Postmenopa usal status Disease Active 05-22 00:00: 00 [facility] Postmenopa usal atrophic vaginitis Postmenopa usal atrophic vaginitis Disease Active 05-22 00:00: 00 [facility] H/O: hysterecto my H/O: hysterecto my Disease Active 05-22 00:00: 00 [facility] Mixed incontinen ce Mixed incontinen ce Disease Active 05-22 00:00: 00 [facility] Obesity Obesity Disease Active 01-16 00:00: 00 Overview: Formattin g of this note might be different from the original. 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[employer] [facility] Elevated alkaline phosphatas e level Elevated alkaline phosphatas e level Disease Active 09-08 00:00: 00 [facility] Dizziness Dizziness Disease Active 2010-05 00:00: 00 [facility] Vertigo of central origin Vertigo of central origin Disease Active 2010-05:00: 00 [facility] Gait disturbanc e Gait disturbanc e Disease Active 2010-05 00:00: 00 [facility] BPPV (benign paroxysmal positional vertigo) BPPV (benign paroxysmal positional vertigo) Disease Active 2010-05 00:00: 00 [facility] Vitamin D deficiency Vitamin D deficiency Disease Active 2009-05 00:00: 00 [facility] HLD (hyperlipi demia) HLD (hyperlipi demia) Disease Active 05-09 00:00: 00 Overview: Formattin g of this note might be different from the original. 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 Lower back [facility] Anxiety Anxiety Disease Active 12-08 00:00: 00 Overview: Formattin g of this note might be different from the original. 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 Lower back [facility] Essential hypertensi on, benign Essential hypertensi on, benign Disease Active 12-08 00:00: 00 [facility] Pain in joint, lower leg Pain in joint, lower leg Disease Active 12-08 00:00: 00 Overview: Formattin g of this note might be different from the original. Knee problem [facility] Diabetes mellitus type 2, uncontroll ed, without complicati ons Diabetes mellitus type 2, uncontroll ed, without complicati ons Disease Active 12-08 00:00: 00 Overview: Formattin g of this note might be different from the original. 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[employer] [facility] Type 2 diabetes mellitus, with long-term current use of insulin Type 2 diabetes mellitus, with long-term current use of insulin Disease Active 12-08 00:00: 00 [facility] Arthritis Arthritis Disease Active [facility] Morbid obesity with body mass index of 40.0-49.9 Morbid obesity with body mass index of 40.0-49.9 Disease Resolve d 07-18 00:00: 00 2020-02-18 00:00:00 2020-02-18 21:19:29 [facility] Morbid obesity with body mass index of 50 or higher Morbid obesity with body mass index of 50 or higher Disease Resolve d 07-18 00:00: 00 2020-02-18 00:00:00 2020-02-18 21:19:30 [facility] Bacterial vaginosis Bacterial vaginosis Disease Resolve d 0 1-20 00:00: 00 2020-02-18 00:00:00 2020-02-18 21:19:12 [facility] Chest pain Chest pain Disease Resolve d -09 00:00: 00 2020-02-18 00:00:00 2020-02-18 21:19:15 [facility] Inflamed seborrheic keratosis Inflamed seborrheic keratosis Disease Resolve d 12-08 00:00: 00 2020-02-18 00:00:00 2020-02-18 21:19:23 [facility] Dizziness and giddiness Dizziness and giddiness Disease Resolve d 12-08 00:00: 00 2020-02-18 00:00:2020-02-18 21:19:10 [facility] Vaginal lesion Vaginal lesion Disease Resolve d 05-22 00:00: 00 2015-05-30 00:00:00 2015-05-30 10:35:08 [facility] Allergies, Adverse Reactions, Alerts Allergy Name Allergy Type Status Severity Reaction(s) Onset Date Inactive Date Treating Clinician Comments Source AMOXICIL ALONDRA DRUG INGREDI Active Med Unknown-Cmnt 11-29 00:00: 00 [facility] Amoxicil alondra Propensi ty to adverse reaction s Active Unknown - See comments 11-29 00:00: 00 Blurry vision [facility] MORPHINE DRUG INGREDI Active Anxiety 12-06 00:00: 00 [facility] Morphine Propensi ty to adverse reaction s Active Anxiety 12-06 00:00: 00 [facility] TRAMADOL DRUG INGREDI Active Anxiety 06-24 00:00: 00 [facility] Tramadol Propensi ty to adverse reaction s Active Anxiety 06-24 00:00: 00 Pt felt "weird" [facility] METRONID AZOLE DRUG INGREDI Active Other-Cmnt 05-24 00:00: 00 [facility] Metronid azole Propensi ty to adverse reaction s Active Other - See comments 05-24 00:00: 00 Throat swelling [facility] PROMETHA ZINE HCL DRUG INGREDI Active N/V 05-05 00:00: 00 [facility] Prometha zine Hcl Drug Intolera nce Active Nausea and/or Vomiting 05-05 00:00: 00 [facility] SULFAMET HOXAZOLE -TRIMETH OPRIM DRUG Active Unknown-Cmnt 12-08 00:00: 00 [facility] CODEINE DRUG INGREDI Active Unknown-Cmnt 12-08 00:00: 00 [facility] Sulfamet hoxazole -Trimeth oprim Propensi ty to adverse reaction s Active Unknown - See comments 12-08 00:00: 00 [facility] Chelle Mejía ty to adverse reaction s Active Unknown - See comments 12-08 00:00: 00 Patient states it makes her feel worse, pain increases [facility] Social History Social Habit Start Date Stop Date Quantity Comments Source Gender identity [facility] Alcoholic beverage intake 2023-11-10 00:00:00 2023-11-10 00:00:00 0 /d [facility] History of Social function 2023-11-06 00:00:00 2023-11-06 00:00:00 [facility] Alcohol intake 2023-07-30 00:00:00 2023-07-30 00:00:00 0 /d [facility] Exposure to SARS-CoV-2 (event) 2022-08-23 00:00:00 2022-09-02 10:27:00 Not sure [facility] Tobacco use and exposure 2022-01-30 00:00:00 2022-01-30 00:00:00 Smokeless tobacco non-user [facility] Sex assigned at 1955 00:00:00 1955 00:00:00 [facility] Smoking Status Start Date Stop Date Source Never smoked tobacco [facility] Medications Ordered Medication Name Filled Medication Name Start Date Stop Date Current Medication? Ordering Clinician Indication Dosage Frequency Signature (SIG) Comments Components Source bevacizumab (AVASTIN) injection 1.25 mg 12-02 16:19: 00 12-02 16:19 :00 No [id number] 1.25mg 1.25 mg, Intravitre al, ONCE PRN, 1 dose, Starting on Mitzi 12/03/23 at 1119, Until Mitzi 12/03/23 at 1119, Routine [facility] cyclobenzap rine 10 mg tablet 11-29 00:00: 00 Yes [id number] TAKE 1 TABLET BY MOUTH IN THE MORNING , THEN TAKE 1 TABLET AT NOON, THEN TAKE 1 TABLET IN THE EVENING [facility] CYCLOBENZAP RINE 10 mg tablet 11-01 00:00: 00 11-29 00:00 :00 No [id number] TAKE 1 TABLET BY MOUTH IN THE MORNING , THEN TAKE 1 TABLET AT NOON, THEN TAKE 1 TABLET IN THE EVENING [facility] bevacizumab (AVASTIN) injection 1.25 mg 10-28 15:58: 00 10-28 15:58 :00 No [id number] 1.25mg 1.25 mg, Intravitre al, ONCE PRN, 1 dose, Starting on Mitzi 10/29/23 at 1058, Until Mitzi 10/29/23 at 1058, Routine [facility] bevacizumab (AVASTIN) injection 1.25 mg 09-30 18:27: 00 09-30 18:27 :00 No [id number] 1.25mg 1.25 mg, Intravitre al, ONCE PRN, 1 dose, Starting on Mitzi 10/01/23 at 1327, Until Mitzi 10/01/23 at 1327, Routine [facility] CYCLOBENZAP RINE 10 mg tablet 09-27 00:00: 00 11-01 00:00 :00 No [id number] TAKE 1 TABLET BY MOUTH IN THE MORNING , THEN TAKE 1 TABLET AT NOON, THEN TAKE 1 TABLET IN THE EVENING [facility] Insulin Glargine (LANTUS SOLOSTAR U-100 INSULIN) 100 unit/mL (3 mL) injection 09-17 00:00: 00 Yes [id number] INJECT 16 UNITS UNDER THE SKIN IN THE MORNING-mu st be the pen [facility] blood sugar diagnostic (ACCU-CHEK GUIDE TEST STRIPS) strip 09-17 00:00: 00 Yes [id number] USE TO CHECK BLOOD GLUCOSE 4X DAILY. DX E11.69 [facility] Lancets (ACCU-CHEK SOFTCLIX LANCETS) Misc 09-17 00:00: 00 Yes [id number] USE 1 TO CHECK GLUCOSE 4 TIMES DAILY [facility] bevacizumab (AVASTIN) injection 1.25 mg 08-12 17:31: 00 08-12 17:31 :00 No [id number] 1.25mg 1.25 mg, Intravitre al, ONCE PRN, 1 dose, Starting on Mitzi 08/13/23 at 1231, Until Mitzi 08/13/23 at 1231, Routine [facility] DULoxetine 30 mg capsule 07-28 00:00: 00 Yes [id number] TAKE 1 CAPSULE BY MOUTH ONCE DAILY FOR ANXIETY, MUST BE SEEN FOR FURTHER REFILLS [facility] gabapentin 100 mg capsule 07-28 00:00: 00 Yes [id number] TAKE 1 CAPSULE BY MOUTH TWICE DAILY NEEDED FOR PAIN ( SCALE 7-10) [facility] lisinopriL 20 mg tablet 07-28 00:00: 00 Yes [id number] TAKE 1 TABLET BY MOUTH TWICE DAILY IN THE MORNING AND IN THE EVENING [facility] lidocaine 5 % ointment 07-28 00:00: 00 Yes [id number] Apply 2g to affected areas BID PRN [facility] insulin lispro (HUMALOG KWIKPEN INSULIN) 100 unit/mL pen injector 07-28 00:00: 00 Yes [id number] INJECT UP TO 18 UNITS UNDER THE SKIN THREE TIMES A DAY ACCORDING TO SLIDING SCALE [facility] famotidine 40 mg tablet 07-28 00:00: 00 Yes [id number] 40mg Take 1 tablet by mouth daily before breakfast. [facility] busPIRone 10 mg tablet 07-28 00:00: 00 Yes [id number] 10mg Take 1 tablet by mouth every morning and evening. [facility] atorvastati n 40 mg tablet 07-28 00:00: 00 Yes [id number] 40mg Take 1 tablet by mouth at bedtime. [facility] amLODIPine 10 mg tablet 07-28 00:00: 00 Yes [id number] 10mg Take 1 tablet by mouth in the morning. [facility] Diclofenac Sodium 1 % gel 07-28 00:00: 00 Yes [id number] APPLY 4 GRAMS TOPICALLY TO AREA(S) 4 TIMES A DAY [facility] fenofibrate 54 mg tablet 07-28 00:00: 11-05 00:00 :00 No [id number] 54mg Take 1 tablet by mouth in the morning. [facility] cyclobenzap rine 10 mg tablet 07-28 00:00: 09-27 00:00 :00 No [id number] TAKE 1 TABLET BY MOUTH IN THE MORNING , THEN TAKE 1 TABLET AT NOON, THEN TAKE 1 TABLET IN THE EVENING [facility] Insulin Glargine (LANTUS SOLOSTAR U-100 INSULIN) 100 unit/mL (3 mL) injection 07-28 00:00: 00 09-17 00:00 :00 No [id number] INJECT 14 UNITS UNDER THE SKIN IN THE MORNING-mu st be the pen [facility] bevacizumab (AVASTIN) injection 1.25 mg 07-08 16:59: 00 07-08 16:59 :00 No [id number] 1.25mg 1.25 mg, Intravitre al, ONCE PRN, 1 dose, Starting on Mitzi 07/09/23 at 1059, Until Mitzi 3 at 1059, Routine [facility] CYCLOBENZAP RINE 10 mg tablet 07-02 00:00: 00 07-28 00:00 :00 No [id number] TAKE 1 TABLET BY MOUTH IN THE MORNING , THEN TAKE 1 TABLET AT NOON, THEN TAKE 1 TABLET IN THE EVENING [facility] bevacizumab (AVASTIN) injection 1.25 mg 06-04 21:33: 00 06-04 21:33 :00 No [id number] 1.25mg 1.25 mg, Intravitre al, ONCE PRN, 1 dose, Starting on Mitzi 06/04/23 at 1533, Until Mitzi 2 at 1533, Routine [facility] ergocalcife rol, vitamin d2, 1,250 mcg (50,000 unit) capsule 06-01 00:00: 00 Yes [id number] Take 1 capsule by mouth weekly. [facility] blood sugar diagnostic (ACCU-CHEK GUIDE TEST STRIPS) strip 05-29 00:00: 00 09-17 00:00 :00 No [id number] USE TO CHECK BLOOD GLUCOSE 4X DAILY. DX E11.69 [facility] DULoxetine 30 mg capsule 05-29 00:00: 00 07-28 00:00 :00 No [id number] TAKE 1 CAPSULE BY MOUTH ONCE DAILY FOR ANXIETY, MUST BE SEEN FOR FURTHER REFILLS [facility] GABAPENTIN 100 mg capsule 05-07 00:00: 00 07-28 00:00 :00 No [id number] TAKE 1 CAPSULE BY MOUTH TWICE DAILY NEEDED FOR PAIN ( SCALE 7-10) [facility] busPIRone 10 mg tablet 2022-05 2-12 00:00: 00 07-28 00:00 :00 No [id number] 10mg TAKE 1 TABLET BY MOUTH IN THE MORNING AND 1 IN THE EVENING [facility] insulin lispro (HUMALOG KWIKPEN INSULIN) 100 unit/mL pen injector 2022-05 00:00: 00 Yes [id number] INJECT UP TO 18 UNITS UNDER THE SKIN THREE TIMES A DAY ACCORDING TO SLIDING SCALE [facility] Insulin Glargine (LANTUS SOLOSTAR U-100 INSULIN) 100 unit/mL (3 mL) injection 2022-05 00:00: 00 Yes [id number] INJECT 14 UNITS UNDER THE SKIN IN THE MORNING [facility] insulin lispro (HUMALOG KWIKPEN INSULIN) 100 unit/mL pen injector 2022-05 00:00: 00 07-28 00:00 :00 No [id number] INJECT UP TO 18 UNITS UNDER THE SKIN THREE TIMES A DAY ACCORDING TO SLIDING SCALE [facility] Insulin Glargine (LANTUS SOLOSTAR U-100 INSULIN) 100 unit/mL (3 mL) injection 2022-05 00:00: 00 07-28 00:00 :00 No [id number] INJECT 14 UNITS UNDER THE SKIN IN THE MORNING [facility] DULOXETINE 30 mg capsule 2022-05 0 00:00: 00 05-29 00:00 :00 No [id number] TAKE 1 CAPSULE BY MOUTH ONCE DAILY FOR ANXIETY [facility] FENOFIBRATE 54 mg tablet 2022-05 00:00: 00 07-28 00:00 :00 No [id number] 54mg TAKE 1 TABLET BY MOUTH IN THE MORNING [facility] AMLODIPINE 10 mg tablet 2022-05 00:00: 00 07-28 00:00 :00 No [id number] 10mg TAKE 1 TABLET BY MOUTH IN THE MORNING [facility] LISINOPRIL 20 mg tablet 2022-05 00:00: 00 07-28 00:00 :00 No [id number] TAKE 1 TABLET BY MOUTH TWICE DAILY IN THE MORNING AND IN THE EVENING [facility] Lancets (ACCU-CHEK SOFTCLIX LANCETS) Misc 2022-05 00:00: 00 09-17 00:00 :00 No [id number] USE 1 TO CHECK GLUCOSE 4 TIMES DAILY [facility] LANTUS SOLOSTAR U-100 INSULIN 100 unit/mL (3 mL) injection 01-22 00:00: 00 03-20 00:00 :00 No [id number] INJECT 14 UNITS UNDER THE SKIN IN THE MORNING [facility] calcium carbonate 500 mg calcium (1,250 mg) tablet 01-13 00:00: 00 Yes [id number] 500mg Take 1 tablet by mouth in the morning. [facility] blood sugar diagnostic (ACCU-CHEK GUIDE TEST STRIPS) strip 11-22 00:00: 00 05-29 00:00 :00 No [id number] USE TO CHECK BLOOD GLUCOSE 4X DAILY. DX E11.69 [facility] OMEPRAZOLE 40 mg capsule 10-31 00:00: 00 07-28 00:00 :00 No [id number] 40mg Take 1 capsule by mouth in the morning [facility] FAMOTIDINE 40 mg tablet 10-31 00:00: 00 07-28 00:00 :00 No [id number] TAKE 1 TABLET BY MOUTH IN THE MORNING [facility] DICLOFENAC SODIUM 1 % gel 10-31 00:00: 00 07-28 00:00 :00 No [id number] APPLY 4 GRAMS TOPICALLY TO AREA(S) 4 TIMES A DAY [facility] CYCLOBENZAP RINE 10 mg tablet 10-31 00:00: 00 07-02 00:00 :00 No [id number] TAKE 1 TABLET BY MOUTH IN THE MORNING , THEN TAKE 1 TABLET AT NOON, THEN TAKE 1 TABLET IN THE EVENING [facility] DICLOFENAC SODIUM 1 % gel 10-21 00:00: 00 Yes [id number] APPLY 4 GRAMS TOPICALLY TO AREA(S) 4 TIMES A DAY [facility] amLODIPine 10 mg tablet 09-26 00:00: 00 02-27 00:00 :00 No [id number] 10mg Take 1 tablet by mouth in the morning. [facility] lisinopriL 20 mg tablet 09-26 00:00: 02-27 00:00 :00 No [id number] 20mg Take 1 tablet by mouth in the morning and 1 tablet in the evening. Dx: E11.65 [facility] meclizine 25 mg tablet 09-03 13:06: 21 Yes 25mg Take 1 tablet by mouth 3 (three) times daily as needed. [facility] simethicone (GAS-X ORAL) 09-03 13:06: 21 Yes Take by mouth. [facility] ondansetron 4 mg tablet 09-03 13:06: 21 11-05 00:00 :00 No 4mg Take 1 tablet by mouth every 8 (eight) hours as needed. [facility] lidocaine 5 % ointment 09-03 00:00: 00 07-28 00:00 :00 No [id number] Apply 2g to affected areas BID PRN [facility] ergocalcife rol, vitamin d2, 1,250 mcg (50,000 unit) capsule 09-03 00:00: 00 06-01 00:00 :00 No [id number] Take 1 capsule by mouth weekly. [facility] gabapentin 100 mg capsule 09-03 00:00: 00 05-07 00:00 :00 No [id number] TAKE 1 CAPSULE BY MOUTH TWICE DAILY NEEDED FOR PAIN ( SCALE 7-10) [facility] busPIRone 10 mg tablet 09-03 00:00: 00 04-14 00:00 :00 No [id number] 10mg Take 1 tablet by mouth in the morning and 1 tablet in the evening. [facility] DULoxetine 30 mg capsule 09-03 00:00: 00 03-02 00:00 :00 No [id number] TAKE 1 CAPSULE BY MOUTH ONCE DAILY FOR ANXIETY [facility] fenofibrate 54 mg tablet 09-03 00:00: 00 02-27 00:00 :00 No [id number] 54mg Take 1 tablet by mouth in the morning. [facility] cyclobenzap rine 10 mg tablet 09-03 00:00: 00 10-31 00:00 :00 No [id number] 10mg Take 1 tablet by mouth in the morning and 1 tablet at noon and 1 tablet in the evening. [facility] Diclofenac Sodium (VOLTAREN) 1 % gel 09-03 00:00: 00 10-21 00:00 :00 No [id number] Apply to area(s) 4 (four) times daily. Apply 4 g qid [facility] amLODIPine 10 mg tablet 09-03 00:00: 00 09-26 00:00 :00 No [id number] 10mg Take 1 tablet by mouth in the morning. [facility] lisinopriL 20 mg tablet 09-03 00:00: 00 09-26 00:00 :00 No [id number] 20mg Take 1 tablet by mouth in the morning and 1 tablet in the evening. Dx: E11.65 [facility] Insulin [place], Disposable, (BD MAMI 2ND GEN PEN NEEDLE) 32 gauge x 5/32" Ndle 08-22 00:00: 00 Yes [id number] USE 1 NEEDLE DIRECTED FIVE TIMES DAILY [facility] Insulin [place], Disposable, (BD MAMI 2ND GEN PEN NEEDLE) 32 gauge x 5/32" Ndle 08-22 00:00: 00 Yes [id number] USE 1 NEEDLE DIRECTED FIVE TIMES DAILY [facility] insulin lispro (HUMALOG KWIKPEN INSULIN) 100 unit/mL pen injector 08-22 00:00: 00 Yes [id number] INJECT UP TO 19 UNITS UNDER THE SKIN THREE TIMES A DAY ACCORDING TO SLIDING SCALE [facility] atorvastati n 40 mg tablet 08-22 00:00: 00 07-28 00:00 :00 No [id number] 40mg Take 1 tablet by mouth at bedtime. [facility] insulin lispro (HUMALOG KWIKPEN INSULIN) 100 unit/mL pen injector 08-22 00:00: 00 03-20 00:00 :00 No [id number] INJECT UP TO 19 UNITS UNDER THE SKIN THREE TIMES A DAY ACCORDING TO SLIDING SCALE [facility] lancets (ULTRA THIN LANCETS) 30 gauge Misc 08-22 00:00: 00 02-25 00:00 :00 No [id number] Use as directed to check blood sugars 4 times daily Dx: E11.69 [facility] Insulin Glargine (LANTUS SOLOSTAR U-100 INSULIN) 100 unit/mL (3 mL) injection 08-22 00:00: 00 01-22 00:00 :00 No [id number] 14U inject 14 Units under the skin in the morning. [facility] blood sugar diagnostic (ACCU-CHEK GUIDE TEST STRIPS) strip 08-22 00:00: 00 11-22 00:00 :00 No [id number] USE TO CHECK BLOOD GLUCOSE 3X DAILY. DX E11.69 [facility] blood sugar diagnostic (ACCU-CHEK GUIDE TEST STRIPS) strip 08-20 00:00: 00 08-22 00:00 :00 No [id number] USE TO CHECK BLOOD GLUCOSE 3X DAILY. DX E11.69 [facility] blood sugar diagnostic (ACCU-CHEK GUIDE TEST STRIPS) strip 4-14 00:00: 00 Yes [id number] USE DIRECTED 4 TIMES DAILY [facility] Insulin [place], Disposable, (BD MAMI 2ND GEN PEN NEEDLE) 32 gauge x 5/32" Ndle 3-11 00:00: 00 08-22 00:00 :00 No [id number] USE 1 NEEDLE DIRECTED FIVE TIMES DAILY [facility] ATORVASTATI N 40 mg tablet 3-06 00:00: 00 08-22 00:00 :00 No [id number] 40mg TAKE 1 TABLET BY MOUTH AT BEDTIME [facility] ERGOCALCIFE ROL, VITAMIN D2, 1,250 mcg (50,000 unit) capsule 07-02 00:00: 00 09-03 00:00 :00 No [id number] Take 1 capsule by mouth once a week [facility] BD MAMI 2ND GEN PEN NEEDLE 32 gauge x 5/32" Ndle 1-05 00:00: 00 07-12 00:00 :00 No [id number] USE 1 NEEDLE DIRECTED FIVE TIMES DAILY [facility] busPIRone 10 mg tablet 2021-05 00:00: 00 09-03 00:00 :00 No [id number] 10mg Take 1 tablet by mouth in the morning and 1 tablet in the evening. [facility] cyclobenzap rine 10 mg tablet 2021-05 00:00: 00 09-03 00:00 :00 No [id number] 10mg Take 1 tablet by mouth in the morning and 1 tablet at noon and 1 tablet in the evening. [facility] gabapentin 100 mg capsule 2021-05 00:00: 00 09-03 00:00 :00 No [id number] TAKE 1 CAPSULE BY MOUTH TWICE DAILY NEEDED FOR PAIN ( SCALE 7-10) [facility] fenofibrate 54 mg tablet 2021-05 00:00: 00 09-03 00:00 :00 No [id number] 54mg Take 1 tablet by mouth in the morning. [facility] iopamidol (ISOVUE 300-500 mL) injection 150 mL 2021-05 21:30: 00 04-11 20:31 :00 No [id number] 150mL 150 mL, Intravenou s, ONCE, 1 dose, On Thu04/11/22 at 1530, Routine [facility] heparin 1,000 unit/mL injection 2021-05 19:32: 49 04-11 19:32 :49 No Slow IV Push, PRN, Starting on Thu04/11/22 at 1332, Until Discontinu ed, Routine [facility] D5[facility] 250 mL infusion RTU 2021-05 19:32: 39 04-11 19:32 :39 No CONTINUOUS PRN, Starting on Thu04/11/22 at 1332 [facility] verapamiL (ISOPTIN) injection 2021-05 19:32: 30 04-11 19:32 :30 No PRN, Starting on Thu04/11/22 at 1332, Until Discontinu ed, Routine [facility] lidocaine 1% (PF) (XYLOCAINE) injection 2021-05 19:32: 02 04-11 19:32 :02 No PRN, Starting on Thu04/11/22 at 1332, Until Discontinu ed, Routine [facility] ondansetron (ZOFRAN (PF)) injection 2021-05 19:02: 00 04-11 19:02 :00 No Slow IV Push, PRN, Starting on Thu04/11/22 at 1302, Until Discontinu ed, Routine [facility] FENTanyl PF (SUBLIMAZE (PF)) injection 2021-05 19:00: 00 04-11 19:00 :00 No Slow IV Push, PRN, Starting on Thu04/11/22 at 1300, Until Discontinu ed, Routine [facility] midazolam (VERSED) injection 2021-05 19:00: 00 04-11 19:00 :00 No IV Push, PRN, Starting on Thu04/11/22 at 1300, Until Discontinu ed, Routine [facility] ERGOCALCIFE ROL, VITAMIN D2, 1,250 mcg (50,000 unit) capsule 2021-05 00:00: 00 07-02 00:00 :00 No [id number] Take 1 capsule by mouth once a week [facility] GABAPENTIN 100 mg capsule 2021-05 00:00: 00 04-23 00:00 :00 No [id number] TAKE 1 CAPSULE BY MOUTH TWICE DAILY NEEDED FOR PAIN ( SCALE 7-10) [facility] lancets (ULTRA THIN LANCETS) 30 gauge Misc 2021-05 00:00: 00 08-22 00:00 :00 No Use as directed to check blood sugars 4 times daily Dx: E11.69 [facility] gabapentin 100 mg capsule 2021-05 00:00: 00 04-07 00:00 :00 No [id number] 100mg Take 1 capsule by mouth 2 (two) times daily as needed for Pain (scale 7-10). [facility] insulin lispro (HUMALOG KWIKPEN INSULIN) 100 unit/mL pen injector 2021-05 0-14 00:00: 00 Yes [id number] INJECT UP TO 19 UNITS UNDER THE SKIN THREE TIMES A DAY ACCORDING TO SLIDING SCALE [facility] Insulin Glargine (LANTUS SOLOSTAR U-100 INSULIN) 100 unit/mL (3 mL) injection 2021-05 0-14 00:00: 00 Yes [id number] 14U inject 14 Units under the skin in the morning. [facility] insulin lispro (HUMALOG KWIKPEN INSULIN) 100 unit/mL pen injector 2021-05 0-14 00:00: 00 08-22 00:00 :00 No [id number] INJECT UP TO 19 UNITS UNDER THE SKIN THREE TIMES A DAY ACCORDING TO SLIDING SCALE [facility] Insulin Glargine (LANTUS SOLOSTAR U-100 INSULIN) 100 unit/mL (3 mL) injection 2021-05 0-14 00:00: 00 08-22 00:00 :00 No [id number] 14U inject 14 Units under the skin in the morning. [facility] blood sugar diagnostic (ACCU-CHEK GUIDE TEST STRIPS) strip 2021-05 0 00:00: 00 08-15 00:00 :00 No [id number] Use to check blood sugars 4 times daily. Dx E11.69 [facility] blood sugar diagnostic (ACCU-CHEK GUIDE TEST STRIPS) strip 01-31 00:00: 00 02-14 00:00 :00 No Use to check blood sugars 4 times daily. Dx E11.69 [facility] CYCLOBENZAP RINE 10 mg tablet 01-30 00:00: 00 04-23 00:00 :00 No [id number] TAKE 1 TABLET BY MOUTH THREE TIMES DAILY [facility] ondansetron (ZOFRAN) 4 mg tablet 01-17 08:46: 10 Yes 4mg Take 4 mg by mouth every 8 (eight) hours as needed. [facility] meclizine 25 mg tablet 01-17 08:46: 10 Yes 25mg Take 25 mg by mouth 3 (three) times daily as needed. [facility] docusate (COLACE) 100 mg capsule 01-17 00:00: 00 Yes [id number] 100mg Take 1 capsule by mouth 2 (two) times daily as needed for Constipati on. [facility] psyllium husk (METAMUCIL) 0.4 gram Cap 01-17 00:00: 00 04-23 00:00 :00 No [id number] 1{capsu le} Take 1 capsule by mouth daily. [facility] Sennosides 8.6 mg Cap 01-17 00:00: 00 04-23 00:00 :00 No [id number] 1{capsu le} Take 1 capsule by mouth daily. [facility] aspirin 81 mg EC tablet 01-17 00:00: 00 04-23 00:00 :00 No [id number] 81mg Take 1 tablet by mouth in the morning. [facility] atorvastati n 40 mg tablet 9-16 00:00: 00 04-13 00:00 :00 No [id number] 9104 40mg Take 1 tablet by mouth at bedtime. [facility] simethicone (GAS-X ORAL) 11-14 15:37: 03 Yes Take by mouth. [facility] polyethylen e glycol 3350 (MIRALAX ORAL) 11-14 15:37: 02 Yes Take by mouth. [facility] dicyclomine 10 mg capsule 11-14 00:00: 00 Yes [id number] 10mg Take 1 capsule by mouth 2 (two) times daily as needed for Other (abdominal pain). Take 10 mg by mouth 2 (two) times daily as needed. [facility] albuterol 90 mcg/actuati on inhaler 11-14 00:00: 00 11-05 00:00 :00 No [id number] INHALE 2 PUFFS BY MOUTH EVERY 6 HOURS NEEDED FOR WHEEZING FOR SHORTNESS OF BREATH [facility] hydrOXYzine 25 mg tablet 11-14 00:00: 00 07-28 00:00 :00 No [id number] 25mg Take 1 tablet by mouth 3 (three) times daily as needed for Itching. [facility] famotidine 40 mg tablet 11-14 00:00: 00 10-31 00:00 :00 No [id number] 40mg Take 1 tablet by mouth in the morning. Get over the counter if not available [facility] omeprazole 40 mg capsule 11-14 00:00: 00 10-31 00:00 :00 No [id number] 40mg Take 1 capsule by mouth in the morning. [facility] DULoxetine 30 mg capsule 11-14 00:00: 00 09-03 00:00 :00 No [id number] TAKE 1 CAPSULE BY MOUTH ONCE DAILY FOR ANXIETY [facility] LANTUS SOLOSTAR U-100 INSULIN 100 unit/mL (3 mL) injection 03 00:00: 00 02-14 00:00 :00 No [id number] INJECT 14 UNITS SUBCUTANEO USLY ONCE DAILY [facility] ergocalcife rol, vitamin d2, (VITAMIN D2) 1,250 mcg (50,000 unit) capsule 10-24 00:00: 00 04-09 00:00 :00 No [id number] Take 1 capsule by mouth weekly. [facility] amLODIPine 10 mg tablet 10-23 00:00: 00 09-03 00:00 :00 No [id number] 10mg Take 1 tablet by mouth daily. [facility] lisinopriL 20 mg tablet 10-23 00:00: 00 09-03 00:00 :00 No [id number] 20mg Take 1 tablet by mouth 2 (two) times daily. Dx: E11.65 [facility] BUSPIRONE 10 mg tablet 10-22 00:00: 00 04-23 00:00 :00 No [id number] Take 1 tablet by mouth twice daily [facility] lancets (ULTRA THIN LANCETS) 30 gauge [facility] 5-13 00:00: 00 04-03 00:00 :00 No Use as directed to check blood sugars 4 times daily for E11.69 [facility] blood sugar diagnostic (ACCU-CHEK GUIDE TEST STRIPS) strip 5-05 00:00: 00 01-31 00:00 :00 No Use to check blood sugars 4 times daily. Dx E11.69 [facility] Lancets (RELION ULTRA THIN PLUS LANCETS) [facility] 4-25 00:00: 00 04-03 00:00 :00 No Use as directed to check blood sugars twice daily for E11.69 30 gauge please [facility] Blood-Gluco se Meter (ACCU-CHEK GUIDE GLUCOSE METER) [facility] 4-21 00:00: 00 Yes Use as directed to check blood sugars for E11.65 [facility] Blood-Gluco se Meter (ACCU-CHEK GUIDE GLUCOSE METER) [facility] 08-22 00:00: 00 Yes Use as directed to check blood sugars for E11.65 [facility] lancets (ONE TOUCH DELICA) 33 gauge [facility] 08-22 00:00: 00 04-03 00:00 :00 No Use as directed to check blood sugars twice daily E11.65 [facility] Insulin [place], Disposable, (MAMI PEN NEEDLE) 32 gauge x 5/32" Ndle 08-09 00:00: 00 05-08 00:00 :00 No [id number] USE DIRECTED FIVE TIMES A DAY [facility] insulin lispro (HUMALOG KWIKPEN INSULIN) 100 unit/mL pen injector 08-09 00:00: 00 02-14 00:00 :00 No [id number] INJECT UP TO 19 UNITS UNDER THE SKIN THREE TIMES A DAY ACCORDING TO SLIDING SCALE [facility] cyclobenzap rine 10 mg tablet 07-30 00:00: 00 01-30 00:00 :00 No [id number] 10mg Take 1 tablet by mouth 3 (three) times daily. [facility] Diclofenac Sodium 1 % gel 07-29 00:00: 00 09-03 00:00 :00 No [id number] APPLY 4G TO AFFECTED AREAS TWO TIMES A DAY NEEDED FOR PAIN (SCALE 4-6) [facility] Diclofenac Sodium 1 % gel 05-06 00:00: 00 06-06 05:59 :00 No [id number] Apply to area(s) 2 (two) times daily as needed for Pain (scale 4-6) for up to 30 days. [facility] ergocalcife rol, vitamin d2, (VITAMIN D2) 1,250 mcg (50,000 unit) capsule 2020-05 00:00: 00 10-24 00:00 :00 No [id number] 39934M Take 1 capsule by mouth weekly. [facility] aspirin 81 mg chewable tablet 2020-05 15:13: 36 04-01 00:00 :00 No 81mg Take 81 mg by mouth daily. [facility] cyclobenzap rine 10 mg tablet 2020-05 00:00: 00 07-30 00:00 :00 No [id number] 07 10mg Take 1 tablet by mouth 2 (two) times daily as needed for Muscle Spasms. [facility] blood sugar diagnostic (ONETOUCH ULTRA TEST) strip 2020-05 00:00: 00 08-09 00:00 :00 No [id number] USE TO CHECK BLOOD SUGAR FOUR TIMES A DAY [facility] atorvastati n 20 mg tablet 2020-05 00:00: 00 01-17 00:00 :00 No [id number] TAKE 1/2 (ONE-HALF) TABLET BY MOUTH ONCE DAILY [facility] Insulin Glargine (LANTUS SOLOSTAR U-100 INSULIN) 100 unit/mL (3 mL) injection 2020-05 00:00: 00 08-09 00:00 :00 No [id number] INJECT 14 UNITS SUBCUTANEO USLY ONCE DAILY [facility] insulin lispro (HUMALOG KWIKPEN INSULIN) 100 unit/mL pen injector 2020-05 00:00: 00 07-22 00:00 :00 No [id number] INJECT UP TO 19 UNITS UNDER THE SKIN THREE TIMES A DAY ACCORDING TO SLIDING SCALE [facility] lancets (ONE TOUCH DELICA) 33 gauge Misc 01-01 00:00: 00 06-03 00:00 :00 No [id number] USE DIRECTED 4 TIMES DAILY [facility] STRESS FORMULA WITH ZINC tablet 12-31 00:00: 00 Yes [id number] Take 1 tablet by mouth once daily [facility] STRESS FORMULA WITH ZINC tablet 12-31 00:00: 00 11-05 00:00 :00 No [id number] Take 1 tablet by mouth once daily [facility] DULoxetine 30 mg capsule 11-20 00:00: 10-22 00:00 :00 No [id number] TAKE 1 CAPSULE BY MOUTH ONCE DAILY FOR ANXIETY [facility] busPIRone 10 mg tablet 7-20 00:00: 00 10-22 00:00 :00 No [id number] 10mg Take 1 tablet by mouth 2 (two) times daily. [facility] lisinopriL 20 mg tablet 08-29 00:00: 00 10-23 00:00 :00 No [id number] 20mg Take 1 tablet by mouth 2 (two) times daily. Dx: E11.65 [facility] amLODIPine 10 mg tablet 08-29 00:00: 00 10-23 00:00 :00 No [id number] 10mg Take 1 tablet by mouth daily. [facility] azelastine 137 mcg (0.1 %) nasal spray 07-30 00:00: 00 Yes [id number] 1{spray } Use 1 [place] in each nostril 2 (two) times daily. Use in each nostril as directed [facility] chlorhexidi ne 0.12 % mouthwash 07-30 00:00: 00 Yes [id number] 15mL Swish and spit out 15 mL 2 (two) times daily. [facility] chlorhexidi ne 0.12 % mouthwash 07-30 00:00: 00 Yes [id number] 15mL Swish and spit out 15 mL 2 (two) times daily. [facility] levocetiriz ine 5 mg tablet 07-30 00:00: 00 09-03 00:00 :00 No [id number] 5mg Take 1 tablet by mouth every evening. [facility] mupirocin 2 % ointment 07-30 00:00: 00 11-14 00:00 :00 No [id number] Apply to both nostrils 2x daily after using azelastine nasal spray. Can add saline spray if nose is too dry [facility] famotidine 40 mg tablet 07-30 00:00: 11-14 00:00 :00 No [id number] 40mg Take 1 tablet by mouth daily. Get over the counter if not available [facility] pantoprazol e 40 mg EC tablet 07-30 00:00: 00 07-23 00:00 :00 No [id number] 40mg Take 1 tablet by mouth daily. [facility] PROAIR HFA 90 mcg/actuati on inhaler 2- 00:00: 00 11-14 00:00 :00 No [facility] ergocalcife rol, vitamin d2, (VITAMIN D2) 1,250 mcg (50,000 unit) capsule 05-20 00:00: 00 05-01 00:00 :00 No [id number] Take 1 capsule by mouth weekly. [facility] albuterol (PROAIR HFA) 90 mcg/actuati on inhaler 05-17 00:00: 00 07-23 00:00 :00 No [id number] 2{puff} Inhale 2 Puffs every 6 (six) hours as needed for Wheezing or Shortness of Breath. [facility] DULoxetine 30 mg capsule 05-17 00:00: 00 10-31 00:00 :00 No [id number] 30mg Take 1 capsule by mouth daily. For anxiety. [facility] amoxicillin -clavulanat e 400-57 mg/5 mL suspension 05-17 00:00: 00 05-28 05:59 :00 No [id number] 880mg Take 11 mL by mouth 2 (two) times daily for 10 days. [facility] dicyclomine 10 mg capsule 2019-05 00:00: 00 11-14 00:00 :00 No 10mg Take 10 mg by mouth 2 (two) times daily as needed. [facility] sucralfate 100 mg/mL suspension 2019-05 00:00: 00 04-01 00:00 :00 No 10mL Take 10 mL by mouth every evening. [facility] famotidine 20 mg tablet 2019-05 00:00: 04-01 00:00 :00 No TAKE 1 TABLET BY MOUTH IN THE EVENING [facility] cetirizine- psuedoephed rine (ZYRTEC-D) 5-120 mg per tablet 2019-05 13:43: 42 02-28 00:00 :00 No 1{tbl} Take 1 tablet by mouth 2 (two) times daily. [facility] busPIRone 10 mg tablet 2019-05 00:00: 00 10-31 00:00 :00 No [id number] 10mg Take 1 tablet by mouth 2 (two) times daily. [facility] dicyclomine (BENTYL) 20 mg tablet 2019-05 00:00: 05-17 00:00 :00 No [id number] 20mg Take 1 tablet by mouth 4 (four) times daily as needed for Abdominal pain. [facility] DULoxetine 30 mg capsule 2019-05 00:00: 00 05-17 00:00 :00 No [id number] 30mg Take 1 capsule by mouth daily. [facility] pantoprazol e 40 mg EC tablet 01-29 00:00: 00 07-30 00:00 :00 No [id number] 105 40mg Take 1 tablet by mouth daily. [facility] azelastine 137 mcg (0.1 %) nasal spray 01-29 00:00: 00 07-30 00:00 :00 No [id number] 1{spray } Use 1 [place] in each nostril 2 (two) times daily. Use in each nostril as directed [facility] levocetiriz ine 5 mg tablet 01-29 00:00: 00 07-30 00:00 :00 No [id number] 5mg Take 1 tablet by mouth every evening. [facility] mupirocin 2 % ointment 01-29 00:00: 00 07-30 00:00 :00 No [id number] Apply to both nostrils 2x daily after using azelastine nasal spray. Can add saline spray if nose is too dry [facility] famotidine 40 mg tablet 928 00:00: 00 05-17 00:00 :00 No [id number] 105 40mg Take 1 tablet by mouth daily. If not available, get over the counter pepcid (famotidin e) and use 2x 20 mg tablet daily at bedtime [facility] blood sugar diagnostic (ONETOUCH VERIO TEST STRIPS) strip 01-06 00:00: 00 06-29 00:00 :00 No Use to check blood sugar QID daily. DX:E11.65 [facility] lancets (MedWhatTOUCH DELICA PLUS LANCET) 33 gauge Misc 01-06 00:00: 00 06-29 00:00 :00 No [id number] Use to check blood sugar 4X daily. DX:E11.65 [facility] insulin lispro (HUMALOG KWIKPEN INSULIN) 100 unit/mL pen injector 01-06 00:00: 00 06-29 00:00 :00 No [id number] Up to 57 units three times daily according to sliding scale DX: E11.65 [facility] Insulin Glargine (LANTUS SOLOSTAR U-100 INSULIN) 100 unit/mL (3 mL) injection 01-06 00:00: 00 06-29 00:00 :00 No [id number] 14U inject 14 Units under the skin daily. DX: E11.65 [facility] insulin lispro (HUMALOG KWIKPEN INSULIN) 100 unit/mL pen injector 01-06 00:00: 00 06-29 00:00 :00 No [id number] Up to 57 units three times daily according to sliding scale DX: E11.65 [facility] vitamin b complex + C + Zinc STRESS FORMULA tablet 22 00:00: 00 12-31 00:00 :00 No [id number] 1{tbl} Take 1 tablet by mouth daily. [facility] chlorhexidi ne 0.12 % mouthwash 22 00:00: 07-30 00:00 :00 No [id number] 15mL Swish and spit out 15 mL 2 (two) times daily. [facility] Insulin [place], Disposable, (MAMI PEN NEEDLE) 32 gauge x 5/32" Ndle 4-10 00:00: 00 08-09 00:00 :00 No [id number] USE DIRECTED FIVE TIMES A DAY [facility] Insulin [place], Disposable, (MAMI PEN NEEDLE) 32 gauge x 5/32" Ndle 410 00:00: 00 08-09 00:00 :00 No [id number] USE DIRECTED FIVE TIMES A DAY [facility] atorvastati n 20 mg tablet 10 00:00: 00 03-22 00:00 :00 No [id number] TAKE 1/2 (ONE-HALF) TABLET BY MOUTH ONCE DAILY [facility] lisinopril 20 mg tablet 410 00:00: 00 08-29 00:00 :00 No [id number] 20mg Take 1 tablet by mouth 2 (two) times daily. Dx: E11.65 [facility] amLODIPine 10 mg tablet 4-10 00:00: 00 08-29 00:00 :00 No [id number] 10mg Take 1 tablet by mouth daily. [facility] hydrOXYzine 25 mg tablet 330 00:00: 00 11-14 00:00 :00 No [id number] 25mg Take 1 tablet by mouth 3 (three) times daily as needed for Itching. [facility] clobetasoL 0.05 % cream 327 00:00: 00 Yes [id number] Apply to area(s) 2 (two) times daily. [facility] Blood-Gluco se Meter (Tripleseat VERIO IQ METER) Kit 2018-05 1-13 00:00: 00 08-22 00:00 :00 No Use to check blood sugar 3X daily. DX:E11.65 [facility] Blood-Gluco se Meter (ONETOUCH VERIO IQ METER) Kit 2018-05 1-13 00:00: 00 08-22 00:00 :00 No Use to check blood sugar 3X daily. DX:E11.65 [facility] cyclobenzap rine 10 mg tablet 2017-05 00:00: 00 04-01 00:00 :00 No 10mg Take 1 tablet by mouth 2 (two) times daily as needed for Muscle Spasms. [facility] DOBUTamine (DOBUTREX) 500 mg in 250mL(Fixed Dose) D5W infusion 12-12 12:56: 55 02-28 18:44 :36 No [id number] 460.5ug /min [facility] chlorhexidi ne 0.12 % mouthwash 09-02 00:00: 00 05-17 00:00 :00 No 5mL Swish and spit out 5 mL daily. [facility] amitriptyli ne (ELAVIL) 10 mg tablet 01-01 00:00: 00 05-30 00:00 :00 No [id number] 10mg Take 1 Tab by mouth at bedtime. [facility] Insulin Glargine (LANTUS SOLOSTAR) 100 unit/mL (3 mL) InPn 12-22 00:00: 00 04-06 00:00 :00 No [id number] 55U inject 55 Units under the skin 2 (two) times daily. [facility] insulin aspart (NOVOLOG FLEXPEN) 100 unit/mL injection 12-22 00:00: 00 04-06 00:00 :00 No [id number] Use three times daily per sliding scale up to 60 units daily [facility] amLODIPine (NORVASC) 10 mg tablet 12-22 00:00: 00 04-06 00:00 :00 No 10mg Take 1 Tab by mouth daily. [facility] lisinopril (PRINIVIL,Z ESTRIL) 20 mg tablet 12-22 00:00: 00 04-02 00:00 :00 No 20mg Take 1 Tab by mouth 2 (two) times daily. [facility] DULoxetine (CYMBALTA) 30 mg capsule 10-03 00:00: 00 05-30 00:00 :00 No 60mg Take 2 Caps by mouth daily. [facility] prazosin (MINIPRES) 2 mg capsule 09-19 00:00: 00 05-30 00:00 :00 No [id number] 2mg Take 1 Cap by mouth at bedtime. [facility] albuterol (PROAIR HFA) 90 mcg/actuati on inhaler 09-05 00:00: 00 05-17 00:00 :00 No [id number] 2{puff} Inhale 2 Puffs every 6 (six) hours as needed for Wheezing or Shortness of Breath (prescribe with aerochambe r (spacer)). [facility] azelastine (ASTELIN) 137 mcg nasal spray 09-05 00:00: 00 07-04 00:00 :00 No [id number] 2{spray } Use 2 Sprays in each nostril 2 (two) times daily. Use in each nostril as directed [facility] montelukast (SINGULAIR) 10 mg tablet 09-05 00:00: 00 12-14 00:00 :00 No [id number] 10mg Take 1 Tab by mouth daily. [facility] levocetiriz ine (XYZAL) 5 mg tablet 09-05 00:00: 00 06-22 00:00 :00 No 5mg Take 1 Tab by mouth every evening. [facility] Insulin [place], Disposable, (BD ULTRAFINE III MINI PEN) 31 x 3/16 " Ndle 06-06 00:00: 00 08-13 00:00 :00 No Use as directed [facility] mupirocin (BACTROBAN) 2 % ointment 2012-05 00:00: 00 05-17 00:00 :00 No [id number] Apply to area(s) 3 (three) times daily. [facility] nystatin (MYCOSTATIN ) 100,000 unit/gram ointment 2012-05 00:00: 00 05-09 00:00 :00 No Apply to area(s) 2 (two) times daily. [facility] butalbital- acetaminoph en-caff (ESGIC) 50-325-40 mg tablet 2012-05 00:00: 00 08-12 00:00 :00 No 1{tbl} Take 1 Tab by mouth every 6 (six) hours as needed for Migraine. [facility] ibuprofen (MOTRIN) 800 mg tablet 16 00:00: 00 05-17 00:00 :00 No 1{tbl} Take 1 tablet by mouth once now. OTC [facility] Sodium Bicarb-Sodi um Chloride (NEILMED SINUS RINSE COMPLETE) Pack 08-09 00:00: 00 05-09 00:00 :00 No Use as directed [facility] HYDROcodone -acetaminop hen (NORCO 5) 5-325 mg tablet 05 00:00: 00 05-30 00:00 :00 No 1{tbl} Take 1 Tab by mouth as needed. [facility] meclizine (ANTIVERT) 12.5 mg tablet 05-30 00:00: 00 06-22 00:00 :00 No [id number] 12.5mg Take 1 Tab by mouth 3 (three) times daily as needed for Dizziness (may take two). [facility] metoclopram yudelka (REGLAN) 5 mg/5 mL solution 05-14 00:00: 00 05-30 00:00 :00 No [id number] 5mg Take 5 mL by mouth before meals as needed for Nausea and Vomiting. [facility] Immunizations Ordered Immunization Name Filled Immunization Name Date Status Comments Source TD 2015-05-22 00:00:00 Completed [facility] TDAP 2015-05-22 00:00:00 Completed [facility] TDAP 2015-05-22 00:00:00 Completed [facility] TDAP 2015-05-22 00:00:00 Completed [facility] TDAP 2015-05-22 00:00:00 Completed [facility] TDAP 2015-05-22 00:00:00 Completed [facility] TDAP 2015-05-22 00:00:00 Completed [facility] TDAP 2015-05-22 00:00:00 Completed [facility] TDAP 2015-05-22 00:00:00 Completed [facility] TDAP 2015-05-22 00:00:00 Completed [facility] TDAP 2015-05-22 00:00:00 Completed [facility] TDAP 2015-05-22 00:00:00 Completed [facility] TDAP 2015-05-22 00:00:00 Completed [facility] TDAP 2015-05-22 00:00:00 Completed [facility] TDAP 2015-05-22 00:00:00 Completed [facility] TDAP 2015-05-22 00:00:00 Completed [facility] TDAP 2015-05-22 00:00:00 Completed [facility] TDAP 2015-05-22 00:00:00 Completed [facility] TDAP 2015-05-22 00:00:00 Completed [facility] TDAP 2015-05-22 00:00:00 Completed [facility] TDAP 2015-05-22 00:00:00 Completed [facility] TDAP 2015-05-22 00:00:00 Completed [facility] TDAP 2015-05-22 00:00:00 Completed [facility] TDAP 2015-05-22 00:00:00 Completed [facility] TDAP 2015-05-22 00:00:00 Completed [facility] TDAP 2015-05-22 00:00:00 Completed [facility] TDAP 2015-05-22 00:00:00 Completed [facility] TDAP 2015-05-22 00:00:00 Completed [facility] TDAP 2015-05-22 00:00:00 Completed [facility] TDAP 2015-05-22 00:00:00 Completed [facility] TDAP 2015-05-22 00:00:00 Completed [facility] TDAP 2015-05-22 00:00:00 Completed [facility] TDAP 2015-05-22 00:00:00 Completed [facility] TDAP 2015-05-22 00:00:00 Completed [facility] TDAP 2015-05-22 00:00:00 Completed [facility] TDAP 2015-05-22 00:00:00 Completed [facility] TDAP 2015-05-22 00:00:00 Completed [facility] TDAP 2015-05-22 00:00:00 Completed [facility] TDAP 2015-05-22 00:00:00 Completed [facility] TDAP 2015-05-22 00:00:00 Completed [facility] TDAP 2015-05-22 00:00:00 Completed [facility] TDAP 2015-05-22 00:00:00 Completed [facility] TDAP 2015-05-22 00:00:00 Completed [facility] TDAP 2015-05-22 00:00:00 Completed [facility] TDAP 2015-05-22 00:00:00 Completed [facility] TDAP 2015-05-22 00:00:00 Completed [facility] TDAP 2015-05-22 00:00:00 Completed [facility] TDAP 2015-05-22 00:00:00 Completed [facility] TDAP 2015-05-22 00:00:00 Completed [facility] TDAP 2015-05-22 00:00:00 Completed [facility] TDAP 2015-05-22 00:00:00 Completed [facility] TDAP 2015-05-22 00:00:00 Completed [facility] TDAP 2015-05-22 00:00:00 Completed [facility] TDAP 2015-05-22 00:00:00 Completed [facility] TDAP 2015-05-22 00:00:00 Completed [facility] TDAP 2015-05-22 00:00:00 Completed [facility] TDAP 2015-05-22 00:00:00 Completed [facility] TDAP 2015-05-22 00:00:00 Completed [facility] TDAP 2015-05-22 00:00:00 Completed [facility] TDAP 2015-05-22 00:00:00 Completed [facility] TDAP 2015-05-22 00:00:00 Completed [facility] TDAP 2015-05-22 00:00:00 Completed [facility] TDAP 2015-05-22 00:00:00 Completed [facility] TDAP 2015-05-22 00:00:00 Completed [facility] TDAP 2015-05-22 00:00:00 Completed [facility] TDAP 2015-05-22 00:00:00 Completed [facility] TDAP 2015-05-22 00:00:00 Completed [facility] TDAP 2015-05-22 00:00:00 Completed [facility] TDAP 2015-05-22 00:00:00 Completed [facility] TDAP 2015-05-22 00:00:00 Completed [facility] TDAP 2015-05-22 00:00:00 Completed [facility] TDAP 2015-05-22 00:00:00 Completed [facility] TDAP 2015-05-22 00:00:00 Completed [facility] TDAP 2015-05-22 00:00:00 Completed [facility] TDAP 2015-05-22 00:00:00 Completed [facility] TDAP 2015-05-22 00:00:00 Completed [facility] TDAP 2015-05-22 00:00:00 Completed [facility] TDAP 2015-05-22 00:00:00 Completed [facility] TDAP 2015-05-22 00:00:00 Completed [facility] TDAP 2015-05-22 00:00:00 Completed [facility] TDAP 2015-05-22 00:00:00 Completed [facility] TDAP 2015-05-22 00:00:00 Completed [facility] TDAP 2015-05-22 00:00:00 Completed [facility] TDAP 2015-05-22 00:00:00 Completed [facility] TDAP 2015-05-22 00:00:00 Completed [facility] TDAP 2015-05-22 00:00:00 Completed [facility] TDAP 2015-05-22 00:00:00 Completed [facility] TDAP 2015-05-22 00:00:00 Completed [facility] TDAP 2015-05-22 00:00:00 Completed [facility] TDAP 2015-05-22 00:00:00 Completed [facility] TDAP 2015-05-22 00:00:00 Completed [facility] TDAP 2015-05-22 00:00:00 Completed [facility] TDAP 2015-05-22 00:00:00 Completed [facility] TDAP 2015-05-22 00:00:00 Completed [facility] TDAP 2015-05-22 00:00:00 Completed [facility] TDAP 2015-05-22 00:00:00 Completed [facility] TDAP 2015-05-22 00:00:00 Completed [facility] TDAP 2015-05-22 00:00:00 Completed [facility] TDAP 2015-05-22 00:00:00 Completed [facility] TDAP 2015-05-22 00:00:00 Completed [facility] TDAP 2015-05-22 00:00:00 Completed [facility] TDAP 2015-05-22 00:00:00 Completed [facility] TDAP 2015-05-22 00:00:00 Completed [facility] TDAP 2015-05-22 00:00:00 Completed [facility] TDAP 2015-05-22 00:00:00 Completed [facility] TDAP 2015-05-22 00:00:00 Completed [facility] TDAP 2015-05-22 00:00:00 Completed [facility] TDAP 2015-05-22 00:00:00 Completed [facility] TDAP 2015-05-22 00:00:00 Completed [facility] TDAP 2015-05-22 00:00:00 Completed [facility] TDAP 2015-05-22 00:00:00 Completed [facility] TDAP 2015-05-22 00:00:00 Completed [facility] TDAP 2015-05-22 00:00:00 Completed [facility] TDAP 2015-05-22 00:00:00 Completed [facility] TDAP 2015-05-22 00:00:00 Completed [facility] Influenza Virus Vaccine 2009-02-06 00:00:00 Completed [facility] Influenza Virus Vaccine 2009-02-06 00:00:00 Completed [facility] Influenza Virus Vaccine 2009-02-06 00:00:00 Completed [facility] Influenza Virus Vaccine 2009-02-06 00:00:00 Completed [facility] Influenza Virus Vaccine 2009-02-06 00:00:00 Completed [facility] Influenza Virus Vaccine 2009-02-06 00:00:00 Completed [facility] Influenza Virus Vaccine 2009-02-06 00:00:00 Completed [facility] Influenza Virus Vaccine 2009-02-06 00:00:00 Completed [facility] Influenza Virus Vaccine 2009-02-06 00:00:00 Completed [facility] Influenza Virus Vaccine 2009-02-06 00:00:00 Completed [facility] Influenza Virus Vaccine 2009-02-06 00:00:00 Completed [facility] Influenza Virus Vaccine 2009-02-06 00:00:00 Completed [facility] Influenza Virus Vaccine 2009-02-06 00:00:00 Completed [facility] Influenza Virus Vaccine 2009-02-06 00:00:00 Completed [facility] Influenza Virus Vaccine 2009-02-06 00:00:00 Completed [facility] Influenza Virus Vaccine 2009-02-06 00:00:00 Completed [facility] Influenza Virus Vaccine 2009-02-06 00:00:00 Completed [facility] Influenza Virus Vaccine 2009-02-06 00:00:00 Completed [facility] Influenza Virus Vaccine 2009-02-06 00:00:00 Completed [facility] Influenza Virus Vaccine 2009-02-06 00:00:00 Completed [facility] Influenza Virus Vaccine 2009-02-06 00:00:00 Completed [facility] Influenza Virus Vaccine 2009-02-06 00:00:00 Completed [facility] Influenza Virus Vaccine 2009-02-06 00:00:00 Completed [facility] Influenza Virus Vaccine 2009-02-06 00:00:00 Completed [facility] Influenza Virus Vaccine 2009-02-06 00:00:00 Completed [facility] Influenza Virus Vaccine 2009-02-06 00:00:00 Completed [facility] Influenza Virus Vaccine 2009-02-06 00:00:00 Completed [facility] Influenza Virus Vaccine 2009-02-06 00:00:00 Completed [facility] Influenza Virus Vaccine 2009-02-06 00:00:00 Completed [facility] Influenza Virus Vaccine 2009-02-06 00:00:00 Completed [facility] Influenza Virus Vaccine 2009-02-06 00:00:00 Completed [facility] Influenza Virus Vaccine 2009-02-06 00:00:00 Completed [facility] Influenza Virus Vaccine 2009-02-06 00:00:00 Completed [facility] Influenza Virus Vaccine 2009-02-06 00:00:00 Completed [facility] Influenza Virus Vaccine 2009-02-06 00:00:00 Completed [facility] Influenza Virus Vaccine 2009-02-06 00:00:00 Completed [facility] Influenza Virus Vaccine 2009-02-06 00:00:00 Completed [facility] Influenza Virus Vaccine 2009-02-06 00:00:00 Completed [facility] Influenza Virus Vaccine 2009-02-06 00:00:00 Completed [facility] Influenza Virus Vaccine 2009-02-06 00:00:00 Completed [facility] Influenza Virus Vaccine 2009-02-06 00:00:00 Completed [facility] Influenza Virus Vaccine 2009-02-06 00:00:00 Completed [facility] Influenza Virus Vaccine 2009-02-06 00:00:00 Completed [facility] Influenza Virus Vaccine 2009-02-06 00:00:00 Completed [facility] Influenza Virus Vaccine 2009-02-06 00:00:00 Completed [facility] Influenza Virus Vaccine 2009-02-06 00:00:00 Completed [facility] Influenza Virus Vaccine 2009-02-06 00:00:00 Completed [facility] Influenza Virus Vaccine 2009-02-06 00:00:00 Completed [facility] Influenza Virus Vaccine 2009-02-06 00:00:00 Completed [facility] Influenza Virus Vaccine 2009-02-06 00:00:00 Completed [facility] Influenza Virus Vaccine 2009-02-06 00:00:00 Completed [facility] Influenza Virus Vaccine 2009-02-06 00:00:00 Completed [facility] Influenza Virus Vaccine 2009-02-06 00:00:00 Completed [facility] Influenza Virus Vaccine 2009-02-06 00:00:00 Completed [facility] Influenza Virus Vaccine 2009-02-06 00:00:00 Completed [facility] Influenza Virus Vaccine 2009-02-06 00:00:00 Completed [facility] Influenza Virus Vaccine 2009-02-06 00:00:00 Completed [facility] Influenza Virus Vaccine 2009-02-06 00:00:00 Completed [facility] Influenza Virus Vaccine 2009-02-06 00:00:00 Completed [facility] Influenza Virus Vaccine 2009-02-06 00:00:00 Completed [facility] Influenza Virus Vaccine 2009-02-06 00:00:00 Completed [facility] Influenza Virus Vaccine 2009-02-06 00:00:00 Completed [facility] Influenza Virus Vaccine 2009-02-06 00:00:00 Completed [facility] Influenza Virus Vaccine 2009-02-06 00:00:00 Completed [facility] Influenza Virus Vaccine 2009-02-06 00:00:00 Completed [facility] Influenza Virus Vaccine 2009-02-06 00:00:00 Completed [facility] Influenza Virus Vaccine 2009-02-06 00:00:00 Completed [facility] Influenza Virus Vaccine 2009-02-06 00:00:00 Completed [facility] Influenza Virus Vaccine 2009-02-06 00:00:00 Completed [facility] Influenza Virus Vaccine 2009-02-06 00:00:00 Completed [facility] Influenza Virus Vaccine 2009-02-06 00:00:00 Completed [facility] Influenza Virus Vaccine 2009-02-06 00:00:00 Completed [facility] Influenza Virus Vaccine 2009-02-06 00:00:00 Completed [facility] Influenza Virus Vaccine 2009-02-06 00:00:00 Completed [facility] Influenza Virus Vaccine 2009-02-06 00:00:00 Completed [facility] Influenza Virus Vaccine 2009-02-06 00:00:00 Completed [facility] Influenza Virus Vaccine 2009-02-06 00:00:00 Completed [facility] Influenza Virus Vaccine 2009-02-06 00:00:00 Completed [facility] Influenza Virus Vaccine 2009-02-06 00:00:00 Completed [facility] Influenza Virus Vaccine 2009-02-06 00:00:00 Completed [facility] Influenza Virus Vaccine 2009-02-06 00:00:00 Completed [facility] Influenza Virus Vaccine 2009-02-06 00:00:00 Completed [facility] Influenza Virus Vaccine 2009-02-06 00:00:00 Completed [facility] Influenza Virus Vaccine 2009-02-06 00:00:00 Completed [facility] Influenza Virus Vaccine 2009-02-06 00:00:00 Completed [facility] Influenza Virus Vaccine 2009-02-06 00:00:00 Completed [facility] Influenza Virus Vaccine 2009-02-06 00:00:00 Completed [facility] Influenza Virus Vaccine 2009-02-06 00:00:00 Completed [facility] Influenza Virus Vaccine 2009-02-06 00:00:00 Completed [facility] Influenza Virus Vaccine 2009-02-06 00:00:00 Completed [facility] Influenza Virus Vaccine 2009-02-06 00:00:00 Completed [facility] Influenza Virus Vaccine 2009-02-06 00:00:00 Completed [facility] Influenza Virus Vaccine 2009-02-06 00:00:00 Completed [facility] Influenza Virus Vaccine 2009-02-06 00:00:00 Completed [facility] Influenza Virus Vaccine 2009-02-06 00:00:00 Completed [facility] Influenza Virus Vaccine 2009-02-06 00:00:00 Completed [facility] Influenza Virus Vaccine 2009-02-06 00:00:00 Completed [facility] Influenza Virus Vaccine 2009-02-06 00:00:00 Completed [facility] Influenza Virus Vaccine 2009-02-06 00:00:00 Completed [facility] Influenza Virus Vaccine 2009-02-06 00:00:00 Completed [facility] Influenza Virus Vaccine 2009-02-06 00:00:00 Completed [facility] Influenza Virus Vaccine 2009-02-06 00:00:00 Completed [facility] Influenza Virus Vaccine 2009-02-06 00:00:00 Completed [facility] Influenza Virus Vaccine 2009-02-06 00:00:00 Completed [facility] Influenza Virus Vaccine 2009-02-06 00:00:00 Completed [facility] Influenza Virus Vaccine 2009-02-06 00:00:00 Completed [facility] Influenza Virus Vaccine 2009-02-06 00:00:00 Completed [facility] Influenza Virus Vaccine 2009-02-06 00:00:00 Completed [facility] Influenza Virus Vaccine 2009-02-06 00:00:00 Completed [facility] Influenza Virus Vaccine 2009-02-06 00:00:00 Completed [facility] Influenza Virus Vaccine 2009-02-06 00:00:00 Completed [facility] Influenza Virus Vaccine 2009-02-06 00:00:00 Completed [facility] Influenza Virus Vaccine 2009-02-06 00:00:00 Completed [facility] Influenza Virus Vaccine 2009-02-06 00:00:00 Completed [facility] Influenza Virus Vaccine 2009-02-06 00:00:00 Completed [facility] Influenza Virus Vaccine 2009-02-06 00:00:00 Completed [facility] Influenza Virus Vaccine Unknown Completed [facility] TDAP Unknown Completed [facility] Influenza Virus Vaccine Unknown Completed [facility] TDAP Unknown Completed [facility] Influenza Virus Vaccine Unknown Completed [facility] TDAP Unknown Completed [facility] Influenza Virus Vaccine Unknown Completed [facility] TDAP Unknown Completed [facility] Influenza Virus Vaccine Unknown Completed [facility] TDAP Unknown Completed [facility] Influenza Virus Vacc[facility] Unknown Completed [facility] TDAP Unknown Completed [facility] Influenza Virus Vacc[facility] Unknown Completed [facility] TDAP Unknown Completed [facility] Influenza Virus Vacc[facility] Unknown Completed [facility] TDAP Unknown Completed [facility] Influenza Virus Vacc[facility] Unknown Completed [facility] TDAP Unknown Completed [facility] Influenza Virus Vacc[facility] Unknown Completed [facility] TDAP Unknown Completed [facility] Influenza Virus Vacc[facility] Unknown Completed [facility] TDAP Unknown Completed [facility] Influenza Virus Vacc[facility] Unknown Completed [facility] TDAP Unknown Completed [facility] Influenza Virus Vacc[facility] Unknown Completed [facility] TDAP Unknown Completed [facility] Influenza Virus Vacc[facility] Unknown Completed [facility] TDAP Unknown Completed [facility] Influenza Virus Vacc[facility] Unknown Completed [facility] TDAP Unknown Completed [facility] Influenza Virus Vacc[facility] Unknown Completed [facility] TDAP Unknown Completed [facility] Influenza Virus Vacc[facility] Unknown Completed [facility] TDAP Unknown Completed [facility] Influenza Virus Vacc[facility] Unknown Completed [facility] TDAP Unknown Completed [facility] Influenza Virus Vacc[facility] Unknown Completed [facility] TDAP Unknown Completed [facility] Influenza Virus Vacc[facility] Unknown Completed [facility] TDAP Unknown Completed [facility] Influenza Virus Vacc[facility] Unknown Completed [facility] TDAP Unknown Completed [facility] Influenza Virus Vacc[facility] Unknown Completed [facility] TDAP Unknown Completed [facility] Influenza Virus Vacc[facility] Unknown Completed [facility] TDAP Unknown Completed [facility] Influenza Virus Vacc[facility] Unknown Completed [facility] TDAP Unknown Completed [facility] Influenza Virus Vacc[facility] Unknown Completed [facility] TDAP Unknown Completed [facility] Influenza Virus Vacc[facility] Unknown Completed [facility] TDAP Unknown Completed [facility] Influenza Virus Vacc[facility] Unknown Completed [facility] TDAP Unknown Completed [facility] Influenza Virus Vacc[facility] Unknown Completed [facility] TDAP Unknown Completed [facility] Influenza Virus Vacc[facility] Unknown Completed [facility] TDAP Unknown Completed [facility] Influenza Virus Vacc[facility] Unknown Completed [facility] TDAP Unknown Completed [facility] Influenza Virus Vacc[facility] Unknown Completed [facility] TDAP Unknown Completed [facility] Influenza Virus Vacc[facility] Unknown Completed [facility] TDAP Unknown Completed [facility] Influenza Virus Vacc[facility] Unknown Completed [facility] TDAP Unknown Completed [facility] Influenza Virus Vacc[facility] Unknown Completed [facility] TDAP Unknown Completed [facility] Influenza Virus Vacc[facility] Unknown Completed [facility] TDAP Unknown Completed [facility] Influenza Virus Vacc[facility] Unknown Completed [facility] TDAP Unknown Completed [facility] Influenza Virus Vacc[facility] Unknown Completed [facility] TDAP Unknown Completed [facility] Influenza Virus Vacc[facility] Unknown Completed [facility] TDAP Unknown Completed [facility] Influenza Virus Vacc[facility] Unknown Completed [facility] TDAP Unknown Completed [facility] Influenza Virus Vacc[facility] Unknown Completed [facility] TDAP Unknown Completed [facility] Influenza Virus Vacc[facility] Unknown Completed [facility] TDAP Unknown Completed [facility] Influenza Virus Vacc[facility] Unknown Completed [facility] TDAP Unknown Completed [facility] Influenza Virus Vacc[facility] Unknown Completed [facility] TDAP Unknown Completed [facility] Influenza Virus Vacc[facility] Unknown Completed [facility] TDAP Unknown Completed [facility] Influenza Virus Vacc[facility] Unknown Completed [facility] TDAP Unknown Completed [facility] Influenza Virus Vacc[facility] Unknown Completed [facility] TDAP Unknown Completed [facility] Influenza Virus Vacc[facility] Unknown Completed [facility] TDAP Unknown Completed [facility] Influenza Virus Vacc[facility] Unknown Completed [facility] TDAP Unknown Completed [facility] Influenza Virus Vacc[facility] Unknown Completed [facility] TDAP Unknown Completed [facility] Influenza Virus Vacc[facility] Unknown Completed [facility] TDAP Unknown Completed [facility] Influenza Virus Vacc[facility] Unknown Completed [facility] TDAP Unknown Completed [facility] Influenza Virus Vacc[facility] Unknown Completed [facility] TDAP Unknown Completed [facility] Influenza Virus Vacc[facility] Unknown Completed [facility] TDAP Unknown Completed [facility] Influenza Virus Vacc[facility] Unknown Completed [facility] TDAP Unknown Completed [facility] Influenza Virus Vacc[facility] Unknown Completed [facility] TDAP Unknown Completed [facility] Influenza Virus Vacc[facility] Unknown Completed [facility] TDAP Unknown Completed [facility] Influenza Virus Vacc[facility] Unknown Completed [facility] TDAP Unknown Completed [facility] Influenza Virus Vacc[facility] Unknown Completed [facility] TDAP Unknown Completed [facility] Influenza Virus Vacc[facility] Unknown Completed [facility] TDAP Unknown Completed [facility] Influenza Virus Vacc[facility] Unknown Completed [facility] TDAP Unknown Completed [facility] Influenza Virus Vacc[facility] Unknown Completed [facility] TDAP Unknown Completed [facility] Influenza Virus Vacc[facility] Unknown Completed [facility] TDAP Unknown Completed [facility] Influenza Virus Vacc[facility] Unknown Completed [facility] TDAP Unknown Completed [facility] Influenza Virus Vacc[facility] Unknown Completed [facility] TDAP Unknown Completed [facility] Influenza Virus Vacc[facility] Unknown Completed [facility] TDAP Unknown Completed [facility] Influenza Virus Vacc[facility] Unknown Completed [facility] TDAP Unknown Completed [facility] Influenza Virus Vacc[facility] Unknown Completed [facility] TDAP Unknown Completed [facility] Influenza Virus Vacc[facility] Unknown Completed [facility] TDAP Unknown Completed [facility] Influenza Virus Vacc[facility] Unknown Completed [facility] TDAP Unknown Completed [facility] Influenza Virus Vacc[facility] Unknown Completed [facility] TDAP Unknown Completed [facility] Influenza Virus Vacc[facility] Unknown Completed [facility] TDAP Unknown Completed [facility] Influenza Virus Vacc[facility] Unknown Completed [facility] TDAP Unknown Completed [facility] Influenza Virus Vacc[facility] Unknown Completed [facility] TDAP Unknown Completed [facility] Influenza Virus Vacc[facility] Unknown Completed [facility] TDAP Unknown Completed [facility] Influenza Virus Vacc[facility] Unknown Completed [facility] TDAP Unknown Completed [facility] Influenza Virus Vacc[facility] Unknown Completed [facility] TDAP Unknown Completed [facility] Influenza Virus Vacc[facility] Unknown Completed [facility] TDAP Unknown Completed [facility] Influenza Virus Vacc[facility] Unknown Completed [facility] TDAP Unknown Completed [facility] Influenza Virus Vacc[facility] Unknown Completed [facility] TDAP Unknown Completed [facility] Influenza Virus Vacc[facility] Unknown Completed [facility] TDAP Unknown Completed [facility] Influenza Virus Vacc[facility] Unknown Completed [facility] TDAP Unknown Completed [facility] Influenza Virus Vacc[facility] Unknown Completed [facility] TDAP Unknown Completed [facility] Influenza Virus Vacc[facility] Unknown Completed [facility] TDAP Unknown Completed [facility] Influenza Virus Vacc[facility] Unknown Completed [facility] TDAP Unknown Completed [facility] Influenza Virus Vaccine Unknown Completed [facility] TDAP Unknown Completed [facility] Influenza Virus Vaccine Unknown Completed [facility] TDAP Unknown Completed [facility] Vital Signs Vital Name Observation Time Observation Value Comments S ource Body weight 2023-12-03 15:42:00 75.297 kg [facility] BMI 2023-12-03 15:42:00 33.53 kg/m2 [facility] Systolic blood pressure 2023-11-06 18:41:00 125 mm[Hg] [place] [facility] Diastolic blood pressure 2023-11-06 18:41:00 56 mm[Hg] [place] [facility] Heart rate 2023-11-06 18:41:00 80 /min [facility] Body temperature 2023-11-06 18:41:00 36.78 [facility] Respiratory rate 2023-11-06 18:41:00 18 /min [facility] Body height 2023-11-06 18:41:00 149.9 cm [facility] weight 2023-11-06 18:41:00 75.433 kg [facility] BMI 2023-11-06 18:41:00 33.59 kg/m2 [facility] Oxygen saturation in Arterial blood by Pulse oximetry 2023-11-06 18:41:00 97 /min [facility] Systolic blood pressure 2023-11-06 18:43:00 125 mm[Hg] [facility] Diastolic blood pressure 2023-11-06 18:43:00 56 mm[Hg] [facility] Heart rate 2023-11-06 18:43:00 80 /[facility] Body temperature 2023-11-06 18:43:00 36.78 [facility] Respiratory rate 2023-11-06 18:43:00 18 /min [facility] Body height 2023-11-06 18:43:00 149.9 cm [facility] Body weight 2023-11-06 18:43:00 75.433 kg [facility] BMI 2023-11-06 18:43:00 33.59 kg/m2 [facility] Oxygen saturation in Arterial blood by Pulse oximetry 2023-11-06 18:43:00 97 /min [facility] Body weight 2023-10-29 15:20:00 76.658 kg [facility] BMI 2023-10-29 15:20:00 34.13 kg/m2 [facility] Body weight 2023-10-01 18:06:00 76.658 kg [facility] BMI 2023-10-01 18:06:00 34.13 kg/m2 [facility] Systolic blood pressure 2023-09-18 16:25:00 121 mm[Hg] [facility] Diastolic blood pressure 2023-09-18 16:25:00 55 mm[Hg] [facility] Heart rate 2023-09-18 16:25:00 70 /min [facility] Body height 2023-09-18 16:25:00 149.9 cm [facility] Body weight 2023-09-18 16:25:00 76.749 kg [facility] BMI 2023-09-18 16:25:00 34.17 kg/m2 [facility] Oxygen saturation in Arterial blood by Pulse oximetry 2023-09-18 16:25:00 98 /min [facility] Systolic blood pressure 2023-07-29 20:48:00 138 mm[Hg] [facility] Diastolic blood pressure 2023-07-29 20:48:00 67 mm[Hg] [facility] Heart rate 2023-07-29 20:48:00 79 /min [facility] Body temperature 2023-07-29 20:48:00 36.44 [facility] Body height 2023-07-29 20:48:00 149.9 cm [facility] Body weight 2023-07-29 20:48:00 72.938 kg Univ [facility] BMI 2023-07-29 20:48:00 32.48 kg/m2 [facility] Oxygen saturation in Arterial blood by Pulse oximetry 2023-07-29 20:48:00 95 /min [facility] Body weight 2023-07-09 16:24:00 73.029 kg [facility] BMI 2023-07-09 16:24:00 31.44 kg/m2 [facility] Body weight 2023-06-04 21:21:00 73.029 kg [facility] BMI 2023-06-04 21:21:00 31.44 kg/m2 [facility] Body weight 2023-05-14 14:54:00 73.029 kg [facility] BMI 2023-05-14 14:54:00 31.44 kg/m2 [facility] Systolic blood pressure 2023-03-20 16:31:00 135 mm[Hg] [facility] Diastolic blood pressure 2023-03-20 16:31:00 85 mm[Hg] [facility] Heart rate 2023-03-20 16:31:00 81 /min [facility] Respiratory rate 2023-03-20 16:31:00 18 /min [facility] Body height 2023-03-20 16:31:00 152.4 cm [facility] Body weight 2023-03-20 16:31:00 73.437 kg [facility] BMI 2023-03-20 16:31:00 31.62 kg/m2 [facility] Oxygen saturation in Arterial blood by Pulse oximetry 2023-03-20 16:31:00 98 /min [facility] Body weight 2023-01-15 13:35:00 74.844 kg [facility] BMI 2023-01-15 13:35:00 33.33 kg/m2 [facility] Systolic blood pressure 2023-01-13 13:49:00 132 mm[Hg] [facility] Diastolic blood pressure 2023-01-13 13:49:00 61 mm[Hg] [facility] Heart rate 2023-01-13 13:49:00 86 /min [facility] Body temperature 2023-01-13 13:49:00 36.17 [facility] Respiratory rate 2023-01-13 13:49:00 16 /min [facility] Body height 2023-01-13 13:49:00 149.9 cm [facility] Body weight 2023-01-13 13:49:00 75.116 kg [facility] BMI 2023-01-13 13:49:00 33.45 kg/m2 [facility] Oxygen saturation in Arterial blood by Pulse oximetry 2023-01-13 13:49:00 97 /min [facility] Body weight 2022-10-16 13:49:00 75.751 kg [facility] BMI 2022-10-16 13:49:00 33.73 kg/m2 [facility] Systolic blood pressure 2022-09-03 20:03:00 121 mm[Hg] [facility] Diastolic blood pressure 2022-09-03 20:03:00 64 mm[Hg] [facility] Heart rate 2022-09-03 20:03:00 78 /min [facility] Body height 2022-09-03 20:03:00 149.9 cm [facility] Body weight 2022-09-03 20:03:00 75.932 kg [facility] BMI 2022-09-03 20:03:00 33.81 kg/m2 [facility] Oxygen saturation in Arterial blood by Pulse oximetry 2022-09-03 20:03:00 95 /min [facility] Systolic blood pressure 2022-09-03 18:06:00 117 mm[Hg] [facility] Diastolic blood pressure 2022-09-03 18:06:00 68 mm[Hg] [facility] Heart rate 2022-09-03 18:06:00 80 /min [facility] Respiratory rate 2022-09-03 18:06:00 18 /min [facility] Body height 2022-09-03 18:06:00 152.4 cm [facility] Body weight 2022-09-03 18:06:00 75.751 kg [facility] BMI 2022-09-03 18:06:00 32.61 kg/m2 [facility] Oxygen saturation in Arterial blood by Pulse oximetry 2022-09-03 18:06:00 97 /min [facility] Systolic blood pressure 2022-09-03 18:08:00 117 mm[Hg] [facility] Diastolic blood pressure 2022-09-03 18:08:00 68 mm[Hg] [facility] Heart rate 2022-09-03 18:08:00 80 /min Un[facility] Respiratory rate 2022-09-03 18:08:00 18 /min [facility] Body height 2022-09-03 18:08:00 152.4 cm [facility] Body weight 2022-09-03 18:08:00 75.751 kg [facility] BMI 2022-09-03 18:08:00 32.61 kg/m2 [facility] Oxygen saturation in Arterial blood by Pulse oximetry 2022-09-03 18:08:00 97 /min [facility] Systolic blood pressure 2022-08-22 19:48:00 127 mm[Hg] [facility] Diastolic blood pressure 2022-08-22 19:48:00 78 mm[Hg] [facility] Heart rate 2022-08-22 19:48:00 88 /min [facility] Body height 2022-08-22 19:48:00 152.4 cm [facility] Body weight 2022-08-22 19:48:00 76.204 kg [facility] BMI 2022-08-22 19:48:00 32.81 kg/m2 [facility] Oxygen saturation in Arterial blood by Pulse oximetry 2022-08-22 19:48:00 97 /min [facility] Body weight 2022-07-10 14:44:00 76.204 kg [facility] BMI 2022-07-10 14:44:00 33.93 kg/m2 [facility] Systolic blood pressure 2022-04-23 20:39:00 132 mm[Hg] [facility] Diastolic blood pressure 2022-04-23 20:39:00 77 mm[Hg] [facility] Heart rate 2022-04-23 20:39:00 75 /min [facility] Body temperature 2022-04-23 20:39:00 36.44 [facility] Respiratory rate 2022-04-23 20:39:00 18 /min [facility] Body height 2022-04-23 20:39:00 149.9 cm [facility] Body weight 2022-04-23 20:39:00 76.34 kg [facility] BMI 2022-04-23 20:39:00 33.99 kg/m2 [facility] Oxygen saturation in Arterial blood by Pulse oximetry 2022-04-23 20:39:00 98 /min [facility] Systolic blood pressure 2022-04-11 21:45:00 151 mm[Hg] [facility] Diastolic blood pressure 2022-04-11 21:45:00 71 mm[Hg] [facility] Heart rate 2022-04-11 21:45:00 79 /min [facility] Oxygen saturation in Arterial blood by Pulse oximetry 2022-04-11 21:45:00 97 /min [facility] Respiratory rate 2022-04-11 20:10:00 12 /min [facility] Body temperature 2022-04-11 17:25:00 36.72 Caroline [facility] Body height 2022-04-11 17:25:00 149.9 cm [facility] Body weight 2022-04-11 17:25:00 76.658 kg [facility] BMI 2022-04-11 17:25:00 34.13 kg/m2 [facility] Body weight 2022-04-03 15:03:00 76.658 kg [facility] BMI 2022-04-03 15:03:00 34.13 kg/m2 [facility] Systolic blood pressure 2022-03-31 19:14:00 135 mm[Hg] [facility] Diastolic blood pressure 2022-03-31 19:14:00 76 mm[Hg] [facility] Heart rate 2022-03-31 19:14:00 84 /min [facility] Body height 2022-03-31 19:14:00 149.9 cm [facility] Body weight 2022-03-31 19:14:00 76.975 kg [facility] BMI 2022-03-31 19:14:00 34.28 kg/m2 [facility] Body height 2022-03-10 14:55:00 149.9 cm [facility] Body weight 2022-03-10 14:55:00 77.338 kg [facility] BMI 2022-03-10 14:55:00 34.44 kg/m2 [facility] Systolic blood pressure 2022-03-03 18:04:00 104 mm[Hg] [facility] Diastolic blood pressure 2022-03-03 18:04:00 57 mm[Hg] [facility] Heart rate 2022-03-03 18:04:00 72 /min [facility] Body temperature 2022-03-03 18:04:00 36.56 Caroline [facility] Body height 2022-03-03 18:04:00 149.9 cm [facility] Body weight 2022-03-03 18:04:00 76.068 kg [facility] BMI 2022-03-03 18:04:00 33.87 kg/m2 [facility] Oxygen saturation in Arterial blood by Pulse oximetry 2022-03-03 18:04:00 96 /min [facility] Systolic blood pressure 2022-02-14 20:25:00 126 mm[Hg] [facility] Diastolic blood pressure 2022-02-14 20:25:00 76 mm[Hg] [facility] Heart rate 2022-02-14 20:25:00 75 /min [facility] Body weight 2022-02-14 20:25:00 77.021 kg [facility] BMI 2022-02-14 20:25:00 34.30 kg/m2 [facility] Oxygen saturation in Arterial blood by Pulse oximetry 2022-02-14 20:25:00 96 /min [facility] Systolic blood pressure 2022-02-10 19:21:00 122 mm[Hg] [facility] Diastolic blood pressure 2022-02-10 19:21:00 70 mm[Hg] [facility] Heart rate 2022-02-10 19:21:00 67 /min [facility] Body weight 2022-02-10 19:21:00 76.204 kg [facility] BMI 2022-02-10 19:21:00 33.93 kg/m2 [facility] Oxygen saturation in Arterial blood by Pulse oximetry 2022-02-10 19:21:00 99 /min [facility] Body weight 2022-01-30 13:53:00 76.658 kg [facility] BMI 2022-01-30 13:53:00 34.13 kg/m2 [facility] Systolic blood pressure 2022-01-17 15:29:00 140 mm[Hg] [facility] Diastolic blood pressure 2022-01-17 15:29:00 72 mm[Hg] [facility] Heart rate 2022-01-17 15:29:00 86 /min [facility] Oxygen saturation in Arterial blood by Pulse oximetry 2022-01-17 15:29:00 99 /min [facility] Respiratory rate 2022-01-17 15:26:00 18 /min [facility] Body temperature 2022-01-17 15:22:00 36.78 [facility] Body weight 2022-01-17 15:22:00 77.021 kg [facility] BMI 2022-01-17 15:22:00 34.30 kg/m2 [facility] Systolic blood pressure 2022-01-17 13:46:00 119 mm[Hg] [facility] Diastolic blood pressure 2022-01-17 13:46:00 74 mm[Hg] [facility] Heart rate 2022-01-17 13:46:00 84 /min [facility] Body temperature 2022-01-17 13:46:00 36.22 [facility] Respiratory rate 2022-01-17 13:46:00 18 /min [facility] Body height 2022-01-17 13:46:00 149.9 cm [facility] Body weight 2022-01-17 13:46:00 76.794 kg [facility] BMI 2022-01-17 13:46:00 34.19 kg/m2 [facility] Oxygen saturation in Arterial blood by Pulse oximetry 2022-01-17 13:46:00 98 /min [facility] Procedures Procedure Date / Time Performed Performing Clinician Source OCT, RETINA - OU - BOTH EYES 2023-12-03 16:21:47 Royce Hernández F [facility] INTRAVITREAL INJECTION, PHARMACOLOGIC AGENT - OS - LEFT EYE 2023-12-03 16:19:53 Royce Hernández [facility] FREE T4 2023-11-06 20:00:00 Anastasiya [facility] THYROID STIMULATING HORMONE 2023-11-06 20:00:[address] [facility] COMP. METABOLIC PANEL (02610) 2023-11-06 20:00:[address] [facility] LIPID PANEL (73180)(TOTAL CHOLESTEROL, TRIGLYCERIDES, HDL) 2023-11-06 20:00:[address] [facility] CBC WITH DIFF 2023-11-06 20:00:00 Anastasiya [facility] GLYCOSYLATED HEMOGLOBIN (A1C) 2023-11-06 20:00:[address] [facility] VITAMIN D, 25-OH 2023-11-06 20:00:[address] [facility] FREE T3 2023-11-06 20:00:00 Anastasiya [facility] OCT, RETINA - OU - BOTH EYES 2023-10-29 15:59:36 Royce Hernández [facility] INTRAVITREAL INJECTION, PHARMACOLOGIC AGENT - OS - LEFT EYE 2023-10-29 15:58:35 Royce Hernández [facility] OCT, RETINA - OU - BOTH EYES 2023-10-01 18:29:49 Royce Hernández [facility] INTRAVITREAL INJECTION, PHARMACOLOGIC AGENT - OS - LEFT EYE 2023-10-01 18:27:55 Royce Hernández [facility] OCT, RETINA - OU - BOTH EYES 2023-09-10 15:28:02 Royce Hernández [facility] OCT, RETINA - OU - BOTH EYES 2023-08-13 17:32:34 Royce Hernández [facility] INTRAVITREAL INJECTION, PHARMACOLOGIC AGENT - OS - LEFT EYE 2023-08-13 17:31:36 Royce Hernández [facility] MR LUMBAR SPINE WO CONTRAST 2023-08-05 15:57:49 Rajni Momin [facility] OCT, RETINA - OU - BOTH EYES 2023-07-09 17:11:52 Royce Hernández [facility] INTRAVITREAL INJECTION, PHARMACOLOGIC AGENT - OS - LEFT EYE 2023-07-09 16:59:12 Royce Hernández [facility] DISCLOSURE AND CONSENT, MEDICAL AND SURGICAL PROCEDURES 2023-07-09 06:01:00 Doctor Unassigned, [place] [facility] OCT, RETINA - OU - BOTH EYES 2023-06-04 21:34:11 Royce Hernández [facility] INTRAVITREAL INJECTION, PHARMACOLOGIC AGENT - OS - LEFT EYE 2023-06-04 21:33:21 Royce Hernández [facility] DISCLOSURE AND CONSENT, MEDICAL AND SURGICAL PROCEDURES 2023-06-04 06:01:00 Doctor Unarodriguez, [place] [facility] OCT, RETINA - OU - BOTH EYES 2023-05-14 15:53:41 Royce Hernández [facility] PATIENT QUESTIONNAIRE 2023-03-20 06:01:00 Doctor Unassigned, [place] [facility] MEDICATION CORRESPONDENCE 2023-02-11 05:01:00 Do ctor Unassigned, [place] [facility] OCT, RETINA - OU - BOTH EYES 2023-01-15 14:38:04 Royce Hernández [facility] DME/SUPPLY JUSTIFICATION 2022-12-08 05:01:00 Doc tor Unassigned, [place] [facility] OCT, RETINA - OU - BOTH EYES 2022-10-16 14:36:56 Royce Hernández [facility] HOME HEALTH - OTHER 2022-10-09 05:01:00 Doctor U nassigned, [place] [facility] HOME HEALTH - OTHER 2022-10-02 05:01:00 Doctor U [email or web address], [place] [facility] DME/SUPPLY JUSTIFICATION 2022-09-19 05:01:00 Doc tor Unassigned, [place] [facility] PATIENT QUESTIONNAIRE 2022-09-08 05:01:00 Doctor Unassigned, [place] [facility] POCT HEMOGLOBIN A1C TEST 2022-08-22 19:55:00 Magnus Martin [facility] CONSENT/REFUSAL FOR DIAGNOSIS AND TREATMENT 2022-08-22 18:48:24 Doctor Unassigned, [place] [facility] PATIENT FINANCIAL POLICY 2022-07-10 14:24:08 Doctor Unassigned, [place] [facility] OU SPECTRALIS OCT MACULA, BOTH EYES 2022-07-10 00:00:00 Cecille Valdez [facility] MEDICATION CORRESPONDENCE 2022-04-24 06:01:00 Do ctor Unassigned, [place] [facility] IR ANGIOGRAM CEREBRAL 2022-04-11 19:55:00 Ilia Calle [facility] POCT GLUCOSE (AUTOMATED) 2022-04-11 18:06:00 Rain Calle [facility] PROTHROMBIN TIME / INR 2022-04-11 17:33:00 Rajni Lucio [facility] OU SPECTRALIS OCT MACULA, BOTH EYES 2022-04-03 00:00:00 Cecille Valdez [facility] EXTERNAL PROVIDER RECORDS 2022-03-13 06:01:00 Do ctor Unassigned, [place] [facility] POCT HEMOGLOBIN A1C TEST 2022-02-14 20:26:00 Magnus Martin [facility] PATIENT QUESTIONNAIRE 2022-02-14 05:01:00 Doctor Unassigned, [place] [facility] OU SPECTRALIS OCT MACULA, BOTH EYES 2022-01-30 00:00:00 Cecille Valdez [facility] DIABETES TESTING REPORTS 2022-01-23 05:01:00 Doc tor Unassigned, [place] [facility] EXTERNAL PROVIDER RECORDS 2022-01-22 05:01:00 Do ctor Unassigned, [place] [facility] TRANSTHORACIC ECHO (TTE) COMPLETE 2022-01-20 18:38:53 Mitchell Vu [facility] Encounters Start Date/Time End Date/Time Encounter Type Admission Type Attending [facility] Care Facility Care Department Encounter ID Source 2024-05-11 13:20:00 2024-05-11 13:20:00 Outpatient RAJNI GONZALEZ [facility] [id number] [facility] 2023-12-31 08:45:00 2023-12-31 08:45:00 Outpatient Ann ROYCE HERNÁNDEZ [facility] [id number] [facility] 2023-12-30 16:00:00 2023-12-30 16:00:00 Outpatient RAJNI GONZALEZ [facility] [id number] [facility] 2023-12-24 00:00:00 2023-12-24 16:11:35 Telephone Rajni Momin [facility] 1.2.840.114 350.1.13.10 4.2.7.2.686 [id number] [facility] 2023-12-10 00:00:00 2023-12-10 15:43:[address] [facility] 1.2.840.114 350.1.13.10 4.2.7.2.686 [id number] [facility] 2023-12-08 00:00:00 2023-12-08 13:45:23 Telephone Rajni Momin [facility] 1.2.840.114 350.1.13.10 4.2.7.2.686 [id number] [facility] 2023-12-07 00:00:00 2023-12-07 16:56:[address] [facility] 1.2.840.114 350.1.13.10 4.2.7.2.686 [id number] [facility] 2023-12-03 10:15:00 2023-12-03 11:27:21 Outpatient ROYCE KENDALL [facility] [id number] [facility] 2023-12-03 10:15:00 2023-12-03 10:30:00 Imm/Inj Visit Royce Hern[facility]dez [facility] 1.2.840.114 350.1.13.10 4.2.7.2.686 [id number] [facility] 2023-11-28 00:00:00 2023-11-30 12:08:17 Refill Rajni [facility] 1.2.840.114 350.1.13.10 4.2.7.2.686 [id number] [facility] 2023-11-06 14:45:00 2023-11-06 15:00:47 Opal Polisher Visit 2, Adc Lab Rajni M[facility] 1.2.840.114 350.1.13.10 4.2.7.2.686 [id number] [facility] 2023-11-06 13:40:00 2023-11-06 14:44:23 Office Visit Rajni Momin [facility] 1.2.840.114 350.1.13.10 4.2.7.2.686 [id number] [facility] 2023-11-06 13:20:00 2023-11-06 14:42:08 Outpatient R RAJNI MOMIN [facility] [id number] [facility] 2023-11-06 13:20:00 2023-11-06 14:42:08 Office Visit Rajni Momin [facility] 1.2.840.114 350.1.13.10 4.2.7.2.686 [id number] [facility] 2023-11-02 00:00:00 2023-11-02 13:45:04 Telephone Rajni Momin [facility] 1.2.840.114 350.1.13.10 4.2.7.2.686 [id number] [facility] 2023-10-30 00:00:00 2023-11-02 08:32:[address] [facility] 1.2.840.114 350.1.13.10 4.2.7.2.686 [id number] [facility] 2023-10-29 10:00:00 2023-10-29 11:10:53 Imm/Inj Visit Royce Hernández [facility] 1.20.114 350.1.13.10 4.2.7.2.686 [id number] [facility] 2023-10-29 10:00:00 2023-10-29 10:00:00 Outpatient R ROYCE HERNÁNDEZ [facility] [id number] [facility] 2023-10-28 00:00:00 2023-10-28 15:52:38 Telephone Rajni Momin [facility] 1.2840.114 350.1.13.10 4.2.7.2.686 [id number] [facility] 2023-10-28 00:00:00 2023-10-28 14:25:59 Pre Visit Outreach Audrey Bartholomew [facility] 1.2.840.114 350.1.13.10 4.2.7.2.686 [id number] [facility] 2020-05-20 00:00:00 2023-10-20 02:21:13 Mobile Device Encounter Osiris Miranda [facility] 1.2.840.114 350.1.13.10 4.2.7.2.686 [id number] [facility] 2023-10-15 00:00:00 2023-10-15 08:59:33 Telephone Rajni Momin [facility] 1.2.840.114 350.1.13.10 4.2.7.2.686 [id number] [facility] 2023-10-13 00:00:00 2023-10-13 11:49:20 Telephone Rajni Momin [facility] 1.2.840.114 350.1.13.10 4.2.7.2.686 [id number] [facility] 2023-10-01 00:00:00 2023-10-01 13:46:47 Telephone Rajni M[facility] 1.2.840.114 350.1.13.10 4.2.7.2.686 [id number] [facility] 2023-10-01 13:15:00 2023-10-01 13:30:00 Imm/Inj Visit Royce Hern[facility]dez [facility] 1.2.840.114 350.1.13.10 4.2.7.2.686 [id number] [facility] 2023-10-01 13:15:00 2023-10-01 13:15:00 Outpatient ROYCE KENDALL [facility] [id number] [facility] 2023-09-28 00:00:00 2023-09-28 11:03:10 Refill Tiffmarco aRajni [facility] 1.2.840.114 350.1.13.10 4.2.7.2.686 [id number] [facility] 2023-09-24 10:30:00 2023-09-24 10:30:00 Outpatient ROYCE KENDALL [facility] [id number] [facility] 2023-09-24 00:00:00 2023-09-24 10:07:29 Telephone KaitlinyenRajni [facility] 1..114 350.1.13.10 4.2.7.2.686 [id number] 044 [id number] [facility] 2023-09-18 11:30:00 2023-09-18 12:12:34 Office Visit Magnus Martin [facility] 1..114 350.1.13.10 4.2.7.2.686 [id number] [facility] 2023-09-18 11:30:00 2023-09-18 12:12:34 Outpatient R MAGNUS MARTIN [facility] [id number] [facility] 2023-08-12 00:00:00 2023-09-12 18:05:01 Patient Secure Msg Doctor Unassigned, Lavaca [facility] 1..114 350.1.13.10 4.2.7.2.686 [id number] 019 [id number] [facility] 2023-09-10 00:00:00 2023-09-10 10:39:19 Letter (Out) Royce Hernández [facility] M[facility] AND [facility] 1.114 350.1.13.10 4.2.7.2.686 [id number] [facility] 2023-09-10 09:15:00 2023-09-10 10:34:01 Outpatient R ROYCE HERNÁNDEZ [facility] [id number] [facility] 2023-09-10 09:15:00 2023-09-10 09:30:00 Office Visit Royce Hernández [facility] 1.114 350.1.13.10 4.2.7.2.686 [id number] 136 [id number] [facility] 2023-09-04 11:00:00 2023-09-04 11:00:00 Outpatient R CASTILLO GUERRA [facility] [id number] [facility] 2023-09-01 10:30:00 2023-09-01 10:30:00 Outpatient R MARTÍNEZ SARITA [facility] [id number] [facility] 2023-08-21 00:00:00 2023-08-21 00:00:[address] [facility] BUILDING 1.840.114 350.1.13.10 4.2.7.2.686 [id number] 044 [id number] [facility] 2023-08-21 00:00:00 2023-08-21 00:00:[address] [facility] BUILDING 1.840.114 350.1.13.10 4.2.7.2.686 [id number] 044 [id number] [facility] 2023-08-13 10:45:00 2023-08-13 12:39:48 Outpatient R ROYCE HERNÁNDEZ [facility] [id number] [facility] 2023-08-13 10:45:00 2023-08-13 11:00:00 Imm/Inj Visit Royce Hernández [facility] 1..114 350.1.13.10 4.2.7.2.686 [id number] 136 [id number] [facility] 2023-08-11 00:00:00 2023-08-11 00:00:00 Telephone [facility] 1.840.114 350.1.13.10 4.2.7.2.686 [id number] 044 [id number] [facility] 2023-08-10 00:00:00 2023-08-10 00:00:00 Patient Outreach Rajni Momin [facility] 1..114 350.1.13.10 4.2.7.2.686 [id number] [id number] [facility] 2023-08-06 10:00:00 2023-08-06 10:00:00 Outpatient R ROYCE HERNÁNDEZ [facility] [id number] [facility] 2023-08-06 00:00:00 2023-08-06 00:00:00 Telephone Royce Hernández [facility] 1.114 350.1.13.10 4.2.7.2.686 [id number] 136 [id number] [facility] 2023-08-05 10:16:30 2023-08-05 23:59:00 Outpatient R RAJNI MOMIN [facility] [id number] [facility] 2023-08-05 10:16:30 2023-08-05 23:59:00 Hospital Encounter Rajni Momin [facility] 1..114 350.1.13.10 4.2.7.2.686 [id number] [facility] 2023-08-05 00:00:00 2023-08-05 00:00:00 Patient Outreach Ava Phillips [facility] 1..114 350.1.13.10 4.2.7.2.686 [id number] 044 [id number] [facility] 2023-08-05 00:00:00 2023-08-05 00:00:00 Patient Secure Msg Doctor Unassigned, [place]aca [facility] 1.0.114 350.1.13.10 4.2.7.2.686 [id number] [facility] 2023-08-04 00:00:00 2023-08-04 00:00:00 Patient Outreach Anastasiya Raj[facility] 1.2.840.114 350.1.13.10 4.2.7.2.686 [id number] 044 [id number] [facility] 2023-07-29 15:20:00 2023-07-29 16:55:09 Outpatient R RAJNI MOMIN [facility] [id number] [facility] 2023-07-29 15:20:00 2023-07-29 16:55:09 Office Visit Rajni Momin [facility] 1.2.840.114 350.1.13.10 4.2.7.2.686 [id number] 044 [id number] [facility] 2023-07-29 16:30:00 2023-07-29 16:45:00 Opal Polisher Visit Pob, Adc Lab Main Rajni Momin [facility] BUILDING 1.2.840.114 350.1.13.10 4.2.7.2.686 [id number] [facility] 2023-07-29 00:00:00 2023-07-29 00:00:[address] [facility] BUILDING 1.2.840.114 350.1.13.10 4.2.7.2.686 [id number] 044 [id number] [facility] 2023-07-29 00:00:00 2023-07-29 00:00:[address] [facility] BUILDING 1.2.840.114 350.1.13.10 4.2.7.2.686 [id number] 044 [id number] [facility] 2023-07-27 08:45:00 2023-07-27 08:36:09 Outpatient R RAJNI MOMIN [facility] [id number] [facility] 2023-07-23 00:00:00 2023-07-23 00:00:[address] [facility] BUILDING 1.84.114 350.1.13.10 4.2.7.2.686 [id number] 044 [id number] [facility] 2023-07-09 10:15:00 2023-07-09 11:17:12 Outpatient R ROYCE HERNÁNDEZ [facility] [id number] [facility] 2023-07-09 10:15:00 2023-07-09 10:30:00 Imm/Inj Visit Royce Hernández [facility] MULTISPEC [facility] 1.114 350.1.13.10 4.2.7.2.686 [id number] 136 [id number] [facility] 2023-07-09 00:00:00 2023-07-09 00:00:00 Orders Only Doctor Unassigned, [place]aca [facility] 1.114 350.1.13.10 4.2.7.2.686 [id number] 009 [id number] [facility] 2023-07-02 00:00:00 2023-07-02 00:00:[address] [facility] BUILDING 1.84.114 350.1.13.10 4.2.7.2.686 [id number] 044 [id number] [facility] 2023-06-04 14:45:00 2023-06-04 15:58:03 Outpatient R ROYCE HERNÁNDEZ [facility] [id number] [facility] 2023-06-04 14:45:00 2023-06-04 15:00:00 Imm/Inj Visit Royce Hernández [facility] MULTISPEC [facility] 1.114 350.1.13.10 4.2.7.2.686 [id number] 136 [id number] [facility] 2023-06-04 00:00:00 2023-06-04 00:00:00 Orders Only Doctor Unassigned, [place] [facility] 1.2.840.114 350.1.13.10 4.2.7.2.686 [id number] 009 [id number] [facility] 2023-06-02 00:00:00 2023-06-02 00:00:00 [facility] 1.2840.114 350.1.13.10 4.2.7.2.686 [id number] 220 [id number] [facility] 2023-06-02 00:00:00 2023-06-02 00:00:00 [facility] 1.2840.114 350.1.13.10 4.2.7.2.686 [id number] 220 [id number] [facility] 2023-06-02 00:00:00 2023-06-02 00:00:00 [facility] 1.2840.114 350.1.13.10 4.2.7.2.686 [id number] 220 [id number] [facility] 2023-06-01 00:00:00 2023-06-01 00:00:00 Telephone Rajni Momin [facility] 1.2840.114 350.1.13.10 4.2.7.2.686 [id number] 044 [id number] [facility] 2023-05-29 00:00:00 2023-05-29 00:00:00 Refill Rajni Momin [facility] 1.2840.114 350.1.13.10 4.2.7.2.686 [id number] 044 [id number] [facility] 2023-05-28 15:30:00 2023-05-28 15:30:00 Outpatient R ROYCE HERNÁNDEZ [facility] [id number] [facility] 2023-05-28 00:00:00 2023-05-28 00:00:00 Telephone Magnus Martin [facility] 1.114 350.1.13.10 4.2.7.2.686 [id number] 220 [id number] [facility] 2023-05-22 00:00:00 2023-05-22 00:00:00 Telephone Royce Hernández [facility] MULTISPEC [facility]ALTY CENTER [facility] 1.114 350.1.13.10 4.2.7.2.686 [id number] 136 [id number] [facility] 2023-05-21 00:00:00 2023-05-21 00:00:00 Telephone Royce Hernández [facility] MULTISPEC [facility] .114 350.1.13.10 4.2.7.2.686 [id number] [facility] 2023-05-14 08:45:00 2023-05-14 10:01:43 Outpatient R ROYCE HERNÁNDEZ [facility] [id number] [facility] 2023-05-14 08:45:00 2023-05-14 09:00:00 Office Visit Royce Hernández [facility] MULTISPEC [facility] .114 350.1.13.10 4.2.7.2.686 [id number] 136 [id number] [facility] 2023-05-05 00:00:00 2023-05-05 00:00:00 Rajni Perera [facility] 1.114 350.1.13.10 4.2.7.2.686 [id number] 044 [id number] [facility] 2023-04-30 08:40:00 2023-04-30 08:40:00 Outpatient R RAJNI MOMIN [facility] [id number] [facility] 2023-04-12 00:00:00 2023-04-12 00:00:00 Refill Rajni Momin [facility] NAL BUILDING 1.84.114 350.1.13.10 4.2.7.2.686 [id number] 044 [id number] [facility] 2023-03-20 13:30:00 2023-03-20 13:45:00 Opal Polisher Visit Lab, Magnus Casanova [facility] 1.84.114 350.1.13.10 4.2.7.2.686 [id number] [facility] 2023-03-20 10:30:00 2023-03-20 11:33:56 Outpatient R MAGNUS MARTIN [facility] [id number] [facility] 2023-03-20 10:30:00 2023-03-20 11:33:56 Office Visit Magnus Martin [facility] BUILD[facility] 1.84.114 350.1.13.10 4.2.7.2.686 [id number] 220 [id number] [facility] 2023-03-20 00:00:00 2023-03-20 00:00:00 Orders Only Doctor Unassigned, [place]aca [facility] 1.114 350.1.13.10 4.2.7.2.686 [id number] [facility] 2023-03-19 08:45:00 2023-03-19 08:45:00 Outpatient R ROYCE HERNÁNDEZ [facility] [id number] [facility] 2023-03-19 00:00:00 2023-03-19 00:00:00 Telephone Magnus Martin [facility] OFF[facility] BUILDING 1.2.840.114 350.1.13.10 4.2.7.2.686 [id number] 220 [id number] [facility] 2023-03-18 00:00:00 2023-03-18 00:00:00 Telephone Magnus Martin [facility] 1.2840.114 350.1.13.10 4.2.7.2.686 [id number] 220 [id number] [facility] 2023-02-26 00:00:00 2023-02-26 00:00:00 Refill Rajni Momin [facility] BUILD[facility] 1.2840.114 350.1.13.10 4.2.7.2.686 [id number] 044 [id number] [facility] 2023-02-24 00:00:00 2023-02-24 00:00:00 [facility] 1.2840.114 350.1.13.10 4.2.7.2.686 [id number] 220 [id number] [facility] 2023-02-11 00:00:00 2023-02-11 00:00:00 Orders Only Doctor Unassigned, [place]aca [facility] 1.840.114 350.1.13.10 4.2.7.2.686 [id number] [id number] [facility] 2023-01-27 00:00:00 2023-01-27 00:00:00 Patient Secure Msg Doctor Unassigned, [place]aca [facility] 1.2840.114 350.1.13.10 4.2.7.2.686 [id number] [facility] 2023-01-23 12:45:00 2023-01-23 12:45:00 Outpatient R JAMES HARMON [facility] [id number] [facility] 2023-01-19 00:00:00 2023-01-19 00:00:00 Major Veronica Magnus [facility] 1.840.114 350.1.13.10 4.2.7.2.686 [id number] 220 [id number] [facility] 2023-01-15 08:45:00 2023-01-15 09:45:39 Outpatient R ROYCE HERNÁNDEZ [facility] [id number] [facility] 2023-01-15 08:45:00 2023-01-15 09:45:39 Office Visit Royce Hernández [facility] 1.840.114 350.1.13.10 4.2.7.2.686 [id number] 136 [id number] [facility] 2023-01-13 09:00:00 2023-01-13 09:54:17 Outpatient R RAJNI MOMIN [facility] [id number] [facility] 2023-01-13 09:00:00 2023-01-13 09:54:17 Office Visit Rajni Momin [facility] BUILDING 1.840.114 350.1.13.10 4.2.7.2.686 [id number] 044 [id number] [facility] 2023-01-08 10:30:00 2023-01-08 10:45:00 Opal Polisher Visit 2, Adc Lab Rajni Momin [facility] BUILDING 1..840.114 350.1.13.10 4.2.7.2.686 [id number] [facility] 2023-01-08 10:30:00 2023-01-08 10:30:00 Outpatient Ann MOMIN RAJNI [facility] [id number] [facility] 2022-12-16 11:00:00 2022-12-16 11:00:00 Outpatient Ann MOMIN RAJNI [facility] [id number] [facility] 2022-12-08 00:00:00 2022-12-08 00:00:00 Orders Only Doctor Unassigned, [place] [facility] 1.2840.114 350.1.13.10 4.2.7.2.686 [id number] [facility] 2022-11-27 00:00:00 2022-11-27 00:00:00 Telephone Martin, Magnus [facility]?KATIE [facility] MEDICAL OFFICE BUILDING 1.840.114 350.1.13.10 4.2.7.2.686 [id number] 220 [id number] [facility] 2022-11-26 00:00:00 2022-11-26 00:00:[address] [facility] BUILDING 1.2.840.114 350.1.13.10 4.2.7.2.686 [id number] 044 [id number] [facility] 2022-11-18 00:00:00 2022-11-18 00:00:00 Telephone Veronica Magnus [facility]IE [facility]ICAL OFFICE BUILDING 1.2840.114 350.1.13.10 4.2.7.2.686 [id number] 220 [id number] [facility] 2022-11-17 00:00:00 2022-11-17 00:00:00 Refill Anastasiya [facility] BUILDING 1.2.840.114 350.1.13.10 4.2.7.2.686 [id number] 044 [id number] [facility] 2022-11-17 00:00:00 2022-11-17 00:00:00 Refill Magnus Martin [facility] RATNA JON MEDICAL OFFICE BUILDING 1.2.840.114 350.1.13.10 4.2.7.2.686 [id number] 220 [id number] [facility] 2022-10-31 00:00:00 2022-10-31 00:00:00 Refill Osiris [facility] 1.2.840.114 350.1.13.10 4.2.7.2.686 [id number] [facility] 2022-10-31 00:00:00 2022-10-31 00:00:[address] [facility] BUILDING 1..840.114 350.1.13.10 4.2.7.2.686 [id number] 044 [id number] [facility] 2022-10-20 00:00:00 2022-10-20 00:00:[address] [facility] BUILDING 1.2.840.114 350.1.13.10 4.2.7.2.686 [id number] 044 [id number] [facility] 2022-10-16 08:45:00 2022-10-16 10:33:49 Outpatient R ROYCE HERNÁNDEZ [facility] [id number] [facility] 2022-10-16 08:45:00 2022-10-16 10:33:49 Office Visit Royce Hernández [facility] 1..840.114 350.1.13.10 4.2.7.2.686 [id number] 136 [id number] [facility] 2022-10-09 00:00:00 2022-10-09 00:00:00 Orders Only Doctor Unassigned, [place] [facility] 1.2.840.114 350.1.13.10 4.2.7.2.686 [id number] 009 [id number] [facility] 2022-10-02 00:00:00 2022-10-02 00:00:00 Telephone Rajni Momin [facility] 1.2.840.114 350.1.13.10 4.2.7.2.686 [id number] 044 [id number] [facility] 2022-10-02 00:00:00 2022-10-02 00:00:00 Orders Only Doctor Unassigned, [place] [facility] 1.2840.114 350.1.13.10 4.2.7.2.686 [id number] [id number] [facility] 2022-09-26 00:00:00 2022-09-26 00:00:00 Refill Castillo Guerra [facility] 1.2840.114 350.1.13.10 4.2.7.2.686 [id number] 059 [id number] [facility] 2022-09-26 00:00:00 2022-09-26 00:00:00 Refill Castillo Guerra [facility] 1.2.840.114 350.1.13.10 4.2.7.2.686 [id number] 059 [id number] [facility] 2022-09-26 00:00:00 2022-09-26 00:00:[address] [facility] BUILDING 1.2.840.114 350.1.13.10 4.2.7.2.686 [id number] 044 [id number] [facility] 2022-09-22 00:00:00 2022-09-22 00:00:[address] [facility] BUILDING 1.2.840.114 350.1.13.10 4.2.7.2.686 [id number] 044 [id number] [facility] 2022-09-19 00:00:00 2022-09-19 00:00:00 Orders Only Doctor Unassigned, [place]aca [facility] 1.2.840.114 350.1.13.10 4.2.7.2.686 [id number] 009 [id number] [facility] 2022-09-08 00:00:00 2022-09-08 00:00:00 Orders Only Doctor Unassigned, [place]aca [facility] 1.2.840.114 350.1.13.10 4.2.7.2.686 [id number] 009 [id number] [facility] 2022-09-04 00:00:00 2022-09-04 00:00:00 Patient Outreach Alexandria Eric [facility] 1.2.840.114 350.1.13.10 4.2.7.2.686 [id number] 044 [id number] [facility] 2022-09-03 15:00:00 2022-09-03 15:18:27 [facility] 1.2.840.114 350.1.13.10 4.2.7.2.686 [id number] [facility] 2022-09-03 15:00:00 2022-09-03 15:00:00 Outpatient R CASTILLO GUERRA [facility] [id number] [facility] 2022-09-03 13:20:00 2022-09-03 14:00:03 Outpatient R RAJNI MOMIN [facility] [id number] [facility] 2022-09-03 13:20:00 2022-09-03 14:00:03 Office Visit Rajni Momin [facility] 1.2.840.114 350.1.13.10 4.2.7.2.686 [id number] [id number] [facility] 2022-09-03 13:00:00 2022-09-03 13:20:00 Office Visit Rajni M[facility] 1.2.840.114 350.1.13.10 4.2.7.2.686 [id number] 044 [id number] [facility] 2022-09-03 00:00:00 2022-09-03 00:00:[address] [facility] BUILDING 1.2.840.114 350.1.13.10 4.2.7.2.686 [id number] [facility] 2022-09-03 00:00:00 2022-09-03 00:00:00 Patient Secure Msg Doctor Unassigned, [place] [facility] 1.2.840.114 350.1.13.10 4.2.7.2.686 [id number] 019 [id number] [facility] 2022-09-03 00:00:00 2022-09-03 00:00:00 Patient Secure Msg Doctor Unassigned, [place] [facility] 1.2.840.114 350.1.13.10 4.2.7.2.686 [id number] 019 [id number] [facility] 2022-08-29 00:00:00 2022-08-29 00:00:00 Patient Secure Msg Doctor Unassigned, [place] [facility] 1.2.840.114 350.1.13.10 4.2.7.2.686 [id number] 082 [id number] [facility] 2022-08-22 14:30:00 2022-08-22 15:31:53 Outpatient R MAGNUS MARTIN [facility] [id number] [facility] 2022-08-22 14:30:00 2022-08-22 15:31:53 Office Visit Magnus Martin [facility] BUILD[facility] 1.84.114 350.1.13.10 4.2.7.2.686 [id number] [facility] 2022-08-22 00:00:00 2022-08-22 00:00:00 Orders Only Doctor Unassigned, [place] [facility] 1.114 350.1.13.10 4.2.7.2.686 [id number] [facility] 2022-08-20 00:00:00 2022-08-20 00:00:00 Telephone Magnus Martin [facility] 1.84.114 350.1.13.10 4.2.7.2.686 [id number] 220 [id number] [facility] 2022-08-14 00:00:00 2022-08-14 00:00:00 Refill Magnus Martin [facility] 1.840.114 350.1.13.10 4.2.7.2.686 [id number] 220 [id number] [facility] 2022-07-12 00:00:00 2022-07-12 00:00:00 [facility] 1.84.114 350.1.13.10 4.2.7.2.686 [id number] [facility] 2022-07-10 08:45:00 2022-07-10 09:45:24 Outpatient R ROYCE HERNÁNDEZ [facility] [id number] [facility] 2022-07-10 08:45:00 2022-07-10 09:00:00 Office Visit Royce Hernández [facility] 1.840.114 350.1.13.10 4.2.7.2.686 [id number] [facility] 2022-07-10 00:00:00 2022-07-10 00:00:00 Orders Only Doctor Unassigned, [place] [facility] 1.2840.114 350.1.13.10 4.2.7.2.686 [id number] [facility] 2022-07-06 00:00:00 2022-07-06 00:00:00 Refill Rajni [facility] 1.2840.114 350.1.13.10 4.2.7.2.686 [id number] [id number] [facility] 2022-07-03 00:00:00 2022-07-03 00:00:00 [facility] 1.2840.114 350.1.13.10 4.2.7.2.686 [id number] [id number] [facility] 2022-06-30 00:00:00 2022-06-30 00:00:00 Refill [facility] 1.2840.114 350.1.13.10 4.2.7.2.686 [id number] [id number] [facility] 2022-05-16 00:00:00 2022-05-16 00:00:00 Telephone [facility] 1.2840.114 350.1.13.10 4.2.7.2.686 [id number] 220 [id number] [facility] 2022-05-07 00:00:00 2022-05-07 00:00:00 Refill Magnus [facility]ARONDenise [facility] 1.2840.114 350.1.13.10 4.2.7.2.686 [id number] 220 [id number] [facility] 2022-04-24 00:00:00 2022-04-24 00:00:00 Orders Only Doctor Unassigned, [place] [facility] 1.2.840.114 350.1.13.10 4.2.7.2.686 [id number] [facility] 2022-04-23 14:40:00 2022-04-23 15:48:41 Outpatient R KAITLINSUNRAJNI OLIVSA [facility] [id number] [facility] 2022-04-23 14:40:00 2022-04-23 15:48:41 Office Visit AnastasiyaRajni [facility] 1.2.840.114 350.1.13.10 4.2.7.2.686 [id number] [facility] 2022-04-23 00:00:00 2022-04-23 00:00:00 Telephone Rajni Momin [facility] 1.2840.114 350.1.13.10 4.2.7.2.686 [id number] [id number] [facility] 2022-04-15 14:20:00 2022-04-15 14:20:00 Outpatient R OSIRIS MIRANDA [facility] [id number] [facility] 2022-04-14 00:00:00 2022-04-14 00:00:00 Telephone Rain Calle [facility] 1.2.840.114 350.1.13.10 4.2.7.2.686 [id number] [facility] 2022-04-11 12:00:00 2022-04-11 23:59:00 Outpatient R RAIN CALLE [facility] [id number] [facility] 2022-04-11 09:54:48 2022-04-11 23:59:00 Hospital Encounter Rain Calle Peter Tze Man Bird, Aricka D Clancy, Connor L [facility] 1..114 350.1.13.10 4.2.7.2.686 [id number] [facility] 2022-04-10 00:00:00 2022-04-10 00:00:00 Jack [facility] 1..114 350.1.13.10 4.2.7.2.686 [id number] [id number] [facility] 2022-04-07 00:00:00 2022-04-07 00:00:00 Telephone Magnus Martin [facility] 1..114 350.1.13.10 4.2.7.2.686 [id number] [facility] 2022-04-03 08:45:00 2022-04-03 09:59:31 Outpatient R ROYCE HERNÁNDEZ [facility] [id number] [facility] 2022-04-03 08:45:00 2022-04-03 09:00:00 Office Visit Royce Hernández [facility] 1..114 350.1.13.10 4.2.7.2.686 [id number] [facility] 2022-04-03 00:00:00 2022-04-03 00:00:00 Telephone Magnus Martin [facility] 1.114 350.1.13.10 4.2.7.2.686 [id number] [facility] 2022-04-03 00:00:00 2022-04-03 00:00:00 Gary Redna C [facility] 1.2.840.114 350.1.13.10 4.2.7.2.686 [id number] [facility] 2022-04-03 00:00:00 2022-04-03 00:00:00 Refgaby Chang Danieltahiradeny [facility] NAL BUILD[facility] 1.2.840.114 350.1.13.10 4.2.7.2.686 [id number] [facility] 2022-03-31 13:00:00 2022-03-31 13:15:00 Office Visit Rajni Lucio [facility] MED[facility] OFFICE BUILDING 1.2.840.114 350.1.13.10 4.2.7.2.686 [id number] [facility] 2022-03-31 13:00:00 2022-03-31 13:00:00 Outpatient R RAJNI LUCIO [facility] [id number] [facility] 2022-03-26 00:00:00 2022-03-26 00:00:[address] [facility] BUILDING 1.2.840.114 350.1.13.10 4.2.7.2.686 [id number] [facility] 2022-03-25 14:30:00 2022-03-25 14:35:06 Opal Polisher Visit 2, Adc Lab Osiris Miranda [facility] BUILDING 1.2.840.114 350.1.13.10 4.2.7.2.686 [id number] [facility] 2022-03-25 14:30:00 2022-03-25 14:30:00 Outpatient R OSIRIS MIRANDA [facility] [id number] [facility] 2022-03-13 00:00:00 2022-03-13 00:00:00 Orders Only Doctor Unassigned, [place] [facility] 1.2.840.114 350.1.13.10 4.2.7.2.686 [id number] [facility] 2022-03-10 08:30:00 2022-03-10 08:45:00 Office Visit Rain Calle [facility] OFFICE BUILDING 1.2.840.114 350.1.13.10 4.2.7.2.686 [id number] [facility] 2022-03-10 08:30:00 2022-03-10 08:30:00 Outpatient Ann EDMONDS [facility] [id number] [facility] 2022-03-03 13:00:00 2022-03-03 13:20:54 Outpatient R ZAIRA GUERRAFORMERLY [facility] [id number] [facility] 2022-03-03 13:00:00 2022-03-03 13:20:54 [facility] 1.2.840.114 350.1.13.10 4.2.7.2.686 [id number] [facility] 2022-02-20 00:00:00 2022-02-20 00:00:00 Patient Secure Msg Doctor Unassigned, [place] [facility] 1.2.840.114 350.1.13.10 4.2.7.2.686 [id number] [facility] 2022-02-18 14:20:00 2022-02-18 14:20:00 Outpatient R OSIRIS MIRANDA [facility] [id number] [facility] 2022-02-14 15:30:00 2022-02-14 16:12:26 Outpatient R MAGNUS MARTIN [facility] [id number] [facility] 2022-02-14 15:30:00 2022-02-14 16:12:26 Office Visit Magnus Martin [facility] OFF[facility] BU[facility] 1.84.114 350.1.13.10 4.2.7.2.686 [id number] [facility] 2022-02-14 00:00:00 2022-02-14 00:00:00 Orders Only Doctor Unassigned, [place] [facility] 1.20.114 350.1.13.10 4.2.7.2.686 [id number] [facility] 2022-02-10 14:40:00 2022-02-10 15:41:16 Outpatient MARCIAL DUQUE HOWARD [facility] [id number] [facility] 2022-02-10 14:40:00 2022-02-10 15:41:16 Office Visit Marcial Norman [facility] MEDICAL OFFICE BUILDING 1.84.114 350.1.13.10 4.2.7.2.686 [id number] [facility] 2022-02-05 13:30:00 2022-02-05 13:30:00 Outpatient DIANNE WHITAKER [facility] [id number] [facility] 2022-02-04 00:00:00 2022-02-04 00:00:00 Telephone Rajni Momin [facility] NAL BUILDING 1.84.114 350.1.13.10 4.2.7.2.686 [id number] [id number] [facility] 2022-02-03 00:00:00 2022-02-03 00:00:00 Telephone Magnus Martin Jaylen [facility]IE [facility] MEDICAL OFFICE BUILDING 1.84.114 350.1.13.10 4.2.7.2.686 [id number] [facility] 2022-02-03 00:00:00 2022-02-03 00:00:00 Telephone Magnus Martin [facility] 1..840.114 350.1.13.10 4.2.7.2.686 [id number] [facility] 2022-01-31 00:00:00 2022-01-31 00:00:00 Refill Magnus Martin [facility] 1..840.114 350.1.13.10 4.2.7.2.686 [id number] [facility] 2022-01-30 08:45:00 2022-01-30 09:00:00 Office Visit Royce Hernández [facility] 1..840.114 350.1.13.10 4.2.7.2.686 [id number] [facility] 2022-01-30 08:45:00 2022-01-30 08:45:00 Outpatient R ROYCE HERNÁNDEZ [facility] [id number] [facility] 2022-01-30 08:45:00 2022-01-30 08:45:00 Outpatient ROYCE KENDALL [facility] [id number] [facility] 2022-01-30 00:00:00 2022-01-30 00:00:00 Telephone [facility]iris [facility] 1..840.114 350.1.13.10 4.2.7.2.686 [id number] [facility] 2022-01-29 13:30:00 2022-01-29 13:30:00 Outpatient DIANNE WHITAKER [facility] [id number] [facility] 2022-01-28 00:00:00 2022-01-28 00:00:00 Douggaby Ruth Osiris Denise [facility] 1.2.840.114 350.1.13.10 4.2.7.2.686 [id number] [facility] 2022-01-23 00:00:00 2022-01-23 00:00:00 Orders Only Doctor Unassigned, [place] [facility] 1.2.840.114 350.1.13.10 4.2.7.2.686 [id number] [id number] [facility] 2022-01-22 00:00:00 2022-01-22 00:00:00 Orders Only Doctor Unassigned, [place] [facility] 1.2.840.114 350.1.13.10 4.2.7.2.686 [id number] [facility] 2022-01-22 00:00:00 2022-01-22 00:00:00 Telephone Mitchell Vu [facility] 1.2840.114 350.1.13.10 4.2.7.2.686 [id number] [facility] 2022-01-22 00:00:00 2022-01-22 00:00:00 Telephone Mitchell Vu [facility] 1.2840.114 350.1.13.10 4.2.7.2.686 [id number] [facility] 2022-01-20 12:32:51 2022-01-20 23:59:00 Outpatient R MITCHELL VU [facility] [id number] [facility] 2022-01-20 12:32:51 2022-01-20 23:59:00 Hospital Encounter Mitchell Vu [facility] 1.2840.114 350.1.13.10 4.2.7.2.686 [id number] [facility] 2022-01-20 11:00:00 2022-01-20 11:00:00 Outpatient KEE KAPLAN [facility] [id number] Aparna west [facility] 2022-01-17 10:52:43 2022-01-17 11:54:00 Outpatient MITCHELL DENT [facility] [id number] [facility] 2022-01-17 11:15:00 2022-01-17 11:30:00 Opal Polisher Visit 2, Adc Lab Rajni Momin [facility] 1.2.840.114 350.1.13.10 4.2.7.2.686 [id number] [facility] 2022-01-17 10:30:00 2022-01-17 10:58:34 Office Visit Mitchell Vu [facility] 1.2.840.114 350.1.13.10 4.2.7.2.686 [id number] [facility] 2022-01-17 09:00:00 2022-01-17 10:02:35 Outpatient R RAJNI MOMIN [facility] [id number] [facility] 2022-01-17 09:00:00 2022-01-17 10:02:35 Office Visit Rajni Momin [facility] 1.2.840.114 350.1.13.10 4.2.7.2.686 [id number] [facility] 2022-01-16 13:40:00 2022-01-16 13:40:00 Outpatient OSIRIS MEHTA [facility] [id number] [facility] 2022-01-08 00:00:00 2022-01-08 00:00:00 Osiris Wang [facility] NAL BUILDING 1.2.840.114 350.1.13.10 4.2.7.2.686 [id number] [facility] 2022-01-01 00:00:00 2022-01-01 00:00:00 Telephone Osiris Miranda Denise [facility] 1.2.840.114 350.1.13.10 4.2.7.2.686 [id number] [facility] 2021-12-31 13:10:00 2021-12-31 13:10:00 Outpatient BEATRICE LITTLE [facility] [id number] [facility] 2021-12-30 00:00:00 2021-12-30 00:00:[address] [facility] BUILDING 1.2.840.114 350.1.13.10 4.2.7.2.686 [id number] [facility] 2021-12-24 00:00:00 2021-12-24 00:00:00 Telephone Osiris Miranda [facility] NAL BUILDING 1.2.840.114 350.1.13.10 4.2.7.2.686 [id number] [facility] 2021-12-24 00:00:00 2021-12-24 00:00:[address] [facility] BUILDING 1.2.840.114 350.1.13.10 4.2.7.2.686 [id number] [facility] 2021-12-24 00:00:00 2021-12-24 00:00:[address] [facility] BUILDING 1.2.840.114 350.1.13.10 4.2.7.2.686 [id number] [facility] 2021-12-18 00:00:00 2021-12-18 00:00:00 Telephone RuthOsiris Denise [facility] 1..840.114 350.1.13.10 4.2.7.2.686 [id number] [facility] 2021-12-05 12:45:00 2021-12-05 12:45:00 Outpatient R KEE EDMONDS [facility] [id number] [facility] 2021-11-28 08:45:00 2021-11-28 09:55:34 Outpatient ROYCE KENDALL [facility] [id number] [facility] 2021-11-28 08:45:00 2021-11-28 09:00:00 Office Visit Royce Hernández [facility] 1..840.114 350.1.13.10 4.2.7.2.686 [id number] [facility] 2021-11-28 08:45:00 2021-11-28 08:45:00 Outpatient ROYCE KENDALL [facility] [id number] [facility] 2021-11-28 08:45:00 2021-11-28 08:45:00 Outpatient ROYCE KENDALL [facility] [id number] [facility] 2021-11-27 00:00:00 2021-11-27 00:00:00 Telephone Osiris Miranda [facility] 1..840.114 350.1.13.10 4.2.7.2.686 [id number] [facility] 2021-11-25 13:30:00 2021-11-25 13:30:00 Outpatient DIANNE WHITAKER [facility] [id number] [facility] 2021-11-14 15:00:00 2021-11-14 16:04:51 Outpatient R OSIRIS MIRANDA [facility] [id number] [facility] 2021-11-14 15:00:00 2021-11-14 16:04:51 Office Visit Osiris Miranda [facility] NAL BUILDING 1..840.114 350.1.13.10 4.2.7.2.686 [id number] [facility] 2021-11-14 15:00:00 2021-11-14 15:00:00 Outpatient R OSIRIS MIRANDA [facility] [id number] [facility] 2021-11-05 13:30:00 2021-11-05 13:30:00 Outpatient R BEATRICE VELEZ [facility] [id number] [facility] 2021-11-03 00:00:00 2021-11-03 00:00:00 [facility] OFF[facility] BUILD[facility] 1..840.114 350.1.13.10 4.2.7.2.686 [id number] [facility] 2021-10-29 00:00:00 2021-10-29 00:00:00 [facility] MEDICAL OFFICE BUILDING 1.2.840.114 350.1.13.10 4.2.7.2.686 [id number] [facility] 2021-10-29 00:00:00 2021-10-29 00:00:00 Telephone [facility] MED[facility] OFFICE BUILDING 1..840.114 350.1.13.10 4.2.7.2.686 [id number] [facility] 2021-10-28 13:00:00 2021-10-28 13:00:00 Outpatient R KEE EDMONDS [facility] [id number] Aparna west [facility] 2021-10-23 00:00:00 2021-10-23 00:00:[address] [facility] BUILDING 1.2.840.114 350.1.13.10 4.2.7.2.686 [id number] [facility] 2021-10-22 00:00:00 2021-10-22 00:00:00 Refill Dianne Chopra [facility] 1.20.114 350.1.13.10 4.2.7.2.686 [id number] [facility] 2021-10-22 00:00:00 2021-10-22 00:00:[address] [facility] BUILDING 1.2840.114 350.1.13.10 4.2.7.2.686 [id number] [facility] 2021-10-22 00:00:00 2021-10-22 00:00:[address] [facility] BUILDING 1.2840.114 350.1.13.10 4.2.7.2.686 [id number] [facility] 2021-09-26 08:45:00 2021-09-26 09:00:00 Office Visit Royce Hernández [facility] 1.2.114 350.1.13.10 4.2.7.2.686 [id number] [facility] 2021-09-26 08:45:00 2021-09-26 08:45:00 Outpatient R ROYCE HERNÁNDEZ [facility] [id number] [facility] 2021-09-26 08:45:00 2021-09-26 08:45:00 Outpatient R HITESH MARTINEZORLANDO FARMERCHRIS [facility] [id number] [facility] 2021-09-26 08:45:00 2021-09-26 08:45:00 Outpatient R HITESH MARTINEZDARIAN WALESKAJOSHUACHRIS [facility] [id number] [facility] 2021-09-24 13:30:00 2021-09-24 13:30:00 Outpatient R BEATRICE VELEZ [facility] [id number] [facility] 2021-09-23 13:30:00 2021-09-23 13:30:00 Outpatient R KEE EDMONDS [facility] [id number] [facility] 2021-09-16 08:45:00 2021-09-16 08:45:00 Outpatient MAGNUS LAZO [facility] [id number] [facility] 2021-09-11 00:00:00 2021-09-11 00:00:00 Telephone Magnus [facility] OFF[facility] BUILD[facility] 1.2.840.114 350.1.13.10 4.2.7.2.686 [id number] [facility] 2021-09-09 13:30:00 2021-09-09 13:30:00 Outpatient DIANNE WHITAKER [facility] [id number] [facility] 2021 00:00:00 2021 00:00:00 Magnus Peña [facility] OFF[facility] BUILDING 1.2.840.114 350.1.13.10 4.2.7.2.686 [id number] [facility] 2021-09-04 00:00:00 2021-09-04 00:00:00 Telephone Magnus Martin [facility] 1..840.114 350.1.13.10 4.2.7.2.686 [id number] 220 [id number] [facility] 2021-09-04 00:00:00 2021-09-04 00:00:00 Orders Only Doctor Unassigned, [place] [facility] 1..840.114 350.1.13.10 4.2.7.2.686 [id number] [facility] 2021-09-03 14:20:00 2021-09-03 15:03:59 Outpatient R CHARLIE [facility] [id number] [facility] 2021-09-03 14:20:00 2021-09-03 15:03:59 Office Visit Charlie, [facility] NAL BUILDING 1..840.114 350.1.13.10 4.2.7.2.686 [id number] [facility] 2021-09-03 14:20:00 2021-09-03 15:03:59 Outpatient R CHARLIE, [facility] [id number] [facility] 2021-09-03 14:20:00 2021-09-03 14:20:00 Outpatient R CHARLIE, [facility] [id number] [facility] 2021-09-03 14:20:00 2021-09-03 14:20:00 Outpatient R CHARLIE, [facility] [id number] [facility] 2021-09-02 00:00:00 2021-09-02 00:00:00 Telephone Magnus Martin [facility] 1.2.840.114 350.1.13.10 4.2.7.2.686 [id number] [facility] 2021-08-26 00:00:00 2021-08-26 00:00:00 Telephone Magnus Martin [facility] 1.2.840.114 350.1.13.10 4.2.7.2.686 [id number] 220 [id number] [facility] 2021-08-22 15:00:00 2021-08-22 15:30:00 Nurse Visit Nurse, Alfred Hough/Osiris Davies [facility] MED[facility] OFFICE BUILDING 1.2.840.114 350.1.13.10 4.2.7.2.686 [id number] 220 [id number] [facility] 2021-08-22 15:00:00 2021-08-22 15:00:00 Outpatient R [facility] [id number] [facility] 2021-08-22 15:00:00 2021-08-22 15:00:00 Outpatient R OSIRIS MIRANDA [facility] [id number] [facility] 2021-08-22 00:00:00 2021-08-22 00:00:00 Major Martin Magnus [facility] OFFICE BUILDING 1.2.840.114 350.1.13.10 4.2.7.2.686 [id number] [facility] 2021-08-16 00:00:00 2021-08-16 00:00:00 Major Martin Magnus [facility] MED[facility] OFFICE BUILDING 1.2.840.114 350.1.13.10 4.2.7.2.686 [id number] [facility] 2021-08-14 14:30:00 2021-08-14 15:39:18 Outpatient R JACK CHANG OGECHUKWU [facility] [id number] [facility] 2021-08-14 14:30:00 2021-08-14 15:39:18 Office Visit Jack Chang [facility] NAL BUILD[facility] 1.2.840.114 350.1.13.10 4.2.7.2.686 [id number] [facility] 2021-08-14 14:30:00 2021-08-14 15:39:18 Outpatient R BERNARDOFREDERICKodiDeny PENDLETONBERNARDO, FREDERICKodiDeny [facility] [id number] [facility] 2021-08-09 15:30:00 2021-08-09 16:12:17 Outpatient R MAGNUS MARTIN [facility] [id number] [facility] 2021-08-09 15:30:00 2021-08-09 16:12:17 Office Visit Magnus Martin [facility] 1.2.840.114 350.1.13.10 4.2.7.2.686 [id number] [facility] 2021-08-08 12:00:00 2021-08-08 12:00:00 Outpatient R KEE EDMONDS [facility] [id number] [facility] 2021-08-01 00:00:00 2021-08-01 00:00:00 Telephone Osiris Miranda [facility] BUILDING 1.2.840.114 350.1.13.10 4.2.7.2.686 [id number] [facility] 2021-07-31 00:00:00 2021-07-31 00:00:[address] [facility] BUILDING 1.2.840.114 350.1.13.10 4.2.7.2.686 [id number] [facility] 2021-07-30 14:00:00 2021-07-30 15:14:45 Outpatient R OSIRIS MIRANDA [facility] [id number] [facility] 2021-07-30 14:00:00 2021-07-30 15:14:45 Office Visit Osiris [facility] 1.2.840.114 350.1.13.10 4.2.7.2.686 [id number] [facility] 2021-07-30 14:00:00 2021-07-30 15:14:45 [facility] [id number] [facility] 2021-07-30 14:00:00 2021-07-30 15:14:45 Out[facility] [id number] [facility] 2021-07-30 14:00:00 2021-07-30 14:00:00 [facility] [id number] [facility] 2021-07-29 00:00:00 2021-07-29 00:00:[address] [facility] BUILDING 1.2.840.114 350.1.13.10 4.2.7.2.686 [id number] [facility] 2021-07-25 08:45:00 2021-07-25 09:17:30 Outpatient R ROYCE HERNÁNDEZ [facility] [id number] [facility] 2021-07-25 08:45:00 2021-07-25 09:00:00 Office Visit Royce Hernández [facility] 1..840.114 350.1.13.10 4.2.7.2.686 [id number] [facility] 2021-07-25 08:45:00 2021-07-25 08:45:00 Outpatient R ROYCE HERNÁNDEZ [facility] [id number] [facility] 2021-07-25 00:00:00 2021-07-25 00:00:00 Orders Only Doctor Unassigned, [place] [facility] 1.2.840.114 350.1.13.10 4.2.7.2.686 [id number] [facility] 2021-07-22 00:00:00 2021-07-22 00:00:[address] [facility] BUILDING 1.2.840.114 350.1.13.10 4.2.7.2.686 [id number] [facility] 2021-07-21 00:00:00 2021-07-21 00:00:00 Refill Dianne Chopra [facility] 1.2.840.114 350.1.13.10 4.2.7.2.686 [id number] [facility] 2021-07-21 00:00:00 2021-07-21 00:00:[address] [facility] BUILDING 1.2.840.114 350.1.13.10 4.2.7.2.686 [id number] [facility] 2021-07-21 00:00:00 2021-07-21 00:00:00 Refill [facility] 1.2.840.114 350.1.13.10 4.2.7.2.686 [id number] [facility] 2021-07-15 13:30:00 2021-07-15 13:30:00 Outpatient KEE KAPLAN [facility] [id number] [facility] 2021-06-14 00:00:00 2021-06-14 00:00:00 Telephone Martin, Magnus [facility] 1..840.114 350.1.13.10 4.2.7.2.686 [id number] [facility] 2021-06-13 12:15:00 2021-06-13 12:15:00 [facility] [id number] [facility] 2021-06-13 12:15:00 2021-06-13 12:15:00 Outpatient Ann EDMONDS [facility] [id number] [facility] 2021-06-13 00:00:00 2021-06-13 00:00:00 Telephone Magnus Martin [facility] 1..840.114 350.1.13.10 4.2.7.2.686 [id number] [facility] 2021-06-04 00:00:00 2021-06-04 00:00:00 Telephone Magnus Martin [facility] 1.840.114 350.1.13.10 4.2.7.2.686 [id number] [facility] 2021-06-03 00:00:00 2021-06-03 00:00:[address] [facility] 1..840.114 350.1.13.10 4.2.7.2.686 [id number] [facility] 2021-05-23 08:45:00 2021-05-23 10:18:33 Outpatient R ROYCE HERNÁNDEZ [facility] [id number] [facility] 2021-05-23 08:45:00 2021-05-23 10:18:33 Office Visit Royce Hernández [facility] 1.840.114 350.1.13.10 4.2.7.2.686 [id number] [facility] 2021-05-23 08:45:00 2021-05-23 10:18:33 Outpatient R HITESH MARTINEZROYCE FARMER [facility] [id number] [facility] 2021-05-23 08:45:00 2021-05-23 08:45:00 [facility] [id number] [facility] 2021-05-07 00:00:00 2021-05-07 00:00:[address] [facility] 1.2.840.114 350.1.13.10 4.2.7.2.686 [id number] [facility] 2021-05-07 00:00:00 2021-05-07 00:00:00 Patient Secure Msg Doctor Unassigned, [place] [facility] 1.2.840.114 350.1.13.10 4.2.7.2.686 [id number] [facility] 2021-05-06 14:00:00 2021-05-06 15:21:21 Outpatient R JACK CHANG OGECHUKWU [facility] [id number] [facility] 2021-05-06 14:00:00 2021-05-06 15:21:21 Office [facility] 1.2.840.114 350.1.13.10 4.2.7.2.686 [id number] [facility] 2021-05-06 14:00:00 2021-05-06 15:21:21 Outpatient R JACK CHANG OGECHUKWU [facility] [id number] [facility] 2021-05-01 14:40:00 2021-05-01 14:40:00 Outpatient R YULI SEE [facility] [id number] [facility] 2021-04-30 00:00:00 2021-04-30 00:00:00 Refill Osiris [facility] 1.2.840.114 350.1.13.10 4.2.7.2.686 [id number] [facility] 2021-04-19 00:00:00 2021-04-19 00:00:00 Telephone Osiris Miranda [facility] 1.2.840.114 350.1.13.10 4.2.7.2.686 [id number] [facility] 2021-04-18 09:08:19 2021-04-18 23:59:00 Outpatient R MIRANDAMELANIEOSIRIS [facility] [id number] [facility] 2021-04-18 09:08:19 2021-04-18 23:59:00 Hospital Encounter Osiris Miranda [facility] 1.2.840.114 350.1.13.10 4.2.7.2.686 [id number] [facility] 2021-04-18 09:08:19 2021-04-18 23:59:00 Outpatient R RUTH OSIRIS [facility] [id number] [facility] 2021-04-17 14:40:00 2021-04-17 14:40:00 Outpatient R YULI SEE [facility] [id number] [facility] 2021-04-17 14:40:00 2021-04-17 14:40:00 Outpatient R YULI SEE [facility] [id number] [facility] 2021-04-15 13:45:00 2021-04-15 13:45:00 Outpatient DIANNE WHITAKER [facility] [id number] [facility] 2021-04-01 14:20:00 2021-04-01 16:02:29 Outpatient OSIRIS MEHTA [facility] [id number] [facility] 2021-04-01 14:20:00 2021-04-01 16:02:29 Office Visit Osiris Miranda [facility] 1.2.840.114 350.1.13.10 4.2.7.2.686 [id number] [facility] 2021-04-01 14:20:00 2021-04-01 14:20:00 Outpatient OSIRIS MEHTA [facility] [id number] [facility] 2021-03-26 00:00:00 2021-03-26 00:00:00 Telephone Magnus Martin [facility] OFFICE BUILDING 1.2.840.114 350.1.13.10 4.2.7.2.686 [id number] [facility] 2021-03-25 09:15:00 2021-03-25 09:15:00 Outpatient MAGNUS LAZO [facility] [id number] [facility] 2021-03-25 08:36:43 2021-03-25 08:51:43 Opal Polisher Visit Lab, Magnus Casanova [facility] BUILDING 1.2.840.114 350.1.13.10 4.2.7.2.686 [id number] [facility] 2021-03-22 15:00:00 2021-03-22 16:07:28 Outpatient MAGNUS LAZO [facility] [id number] [facility] 2021-03-22 15:00:00 2021-03-22 16:07:28 Outpatient MAGNUS LAZO [facility] [id number] [facility] 2021-03-22 15:00:00 2021-03-22 16:07:28 Office Visit Magnus Martin [facility] OFF[facility] 1..840.114 350.1.13.10 4.2.7.2.686 [id number] [facility] 2021-03-22 15:00:00 2021-03-22 15:00:00 Outpatient R MAGNUS MARTIN [facility] [id number] [facility] 2021-03-22 00:00:00 2021-03-22 00:00:00 Refill Magnus Martin [facility] 1..840.114 350.1.13.10 4.2.7.2.686 [id number] [facility] 2021-03-21 08:15:00 2021-03-21 10:19:53 Outpatient R ROYCE HERNÁNDEZ [facility] [id number] [facility] 2021-03-21 08:03:53 2021-03-21 08:18:53 Office Visit Royce Hernández [facility] 1..840.114 350.1.13.10 4.2.7.2.686 [id number] [facility] 2021-03-21 08:15:00 2021-03-21 08:15:00 Outpatient R ROYCE HERNÁNDEZ [facility] [id number] [facility] 2021-03-11 13:30:00 2021-03-11 13:30:00 Outpatient R DIANNE CHOPRA [facility] [id number] [facility] 2021-02-01 00:00:00 2021-02-01 00:00:00 Telephone Rajni Momin [facility] nal Building 1.840.114 350.1.13.10 4.2.7.2.686 [id number] [facility] 2021-01-28 13:00:00 2021-01-28 13:00:00 Outpatient R DIANNE CHOPRA [facility] [id number] [facility] 2021-01-24 09:00:00 2021-01-24 09:00:00 Outpatient R ROYCE HERNÁNDEZ [facility] [id number] [facility] 2021-01-24 08:29:46 2021-01-24 08:44:46 [facility] 1.114 350.1.13.10 4.2.7.2.686 [id number] [facility] 2021-01-18 00:00:00 2021-01-18 00:00:00 Telephone Magnus Martin [facility]atie [facility]on [facility] Office Building 1.840.114 350.1.13.10 4.2.7.2.686 [id number] [facility] 2021-01-17 00:00:00 2021-01-17 00:00:00 Orders Only Doctor Unassigned, [place] [facility] .114 350.1.13.10 4.2.7.2.686 [id number] [facility] 2021-01-09 00:00:00 2021-01-09 00:00:00 Patient Outreach [facility] 1.840.114 350.1.13.10 4.2.7.2.686 [id number] [facility] 2021-01-08 00:00:00 2021-01-08 00:00:00 Telephone [facility] 1.2.840.114 350.1.13.10 4.2.7.2.686 [id number] [facility] 2021-01-01 00:00:00 2021-01-01 00:00:00 Orders Only Doctor Unassigned, [place] [facility] 1.2840.114 350.1.13.10 4.2.7.2.686 [id number] [facility] 2020-12-28 15:00:00 2020-12-28 15:00:00 Outpatient MAGNUS LAZO [facility] [id number] [facility] 2020-12-27 00:00:00 2020-12-27 00:00:00 Refill Rajni Momin [facility] Building 1.2.840.114 350.1.13.10 4.2.7.2.686 [id number] [facility] 2020-12-27 00:00:00 2020-12-27 00:00:00 Refill Magnus Martin [facility] Building 1.2.840.114 350.1.13.10 4.2.7.2.686 [id number] [facility] 2020-12-27 00:00:00 2020-12-27 00:00:00 Refill Dianne Chopra formerly [facility] 1.2.840.114 350.1.13.10 4.2.7.2.686 [id number] [facility] 2020-11-29 08:15:00 2020-11-29 08:15:00 Outpatient ROYCE KENDALL [facility] [id number] [facility] 2020-11-28 09:00:00 2020-11-28 09:00:00 Outpatient JUSTYN LYNN [facility] [id number] [facility] 2020-11-20 14:20:00 2020-11-20 14:20:00 Outpatient R OSIRIS MIRANDA [facility] [id number] [facility] 2020-08-29 14:00:00 2020-08-29 14:00:00 Outpatient R CASTILLO GUERRA [facility] [id number] [facility] 2020-08-27 14:00:00 2020-08-27 14:00:00 [facility] [id number] 2020-07-30 13:00:00 2020-07-30 13:00:00 [facility] [id number] 2020-07-02 13:00:00 2020-07-02 13:00:00 Outpatient R NAV [facility] [id number] [facility] 2020-06-29 15:30:00 2020-06-29 16:35:42 Outpatient R MAGNUS MARTIN [facility] [id number] [facility] 2020-06-04 13:00:00 2020-06-04 13:00:00 Outpatient R NAV [facility] [id number] [facility] 2020-05-17 13:40:00 2020-05-17 13:40:00 Outpatient R OSIRIS MIRANDA [facility] [id number] [facility] 2020-05-07 10:30:00 2020-05-07 10:30:00 Outpatient R NAV [facility] [id number] [facility] 2020-04-23 14:00:00 2020-04-23 14:00:00 Outpatient R NAV [facility] [id number] [facility] 2020-03-19 13:30:00 2020-03-19 13:30:00 Outpatient R DIANNE CHOPRA [facility] [id number] [facility] 2020-02-29 13:34:05 2020-02-29 13:54:05 [facility] 1.2.840.114 350.1.13.10 4.2.7.2.686 [id number] 2020-02-29 13:40:00 2020-02-29 13:40:00 Outpatient R ZAIRA [facility]RAFORM[facility]LY [facility] [id number] [facility] 2020-02-29 00:00:00 2020-02-29 00:00:00 Telephone Magnus Martin [facility] Building 1.2.840.114 350.1.13.10 4.2.7.2.686 [id number] 2020-02-28 10:00:00 2020-02-28 10:00:00 Outpatient R ZAIRA GUERRAFORMERLY [facility] [id number] [facility] 2020-02-23 11:00:00 2020-02-23 11:00:00 Outpatient R ZAIRA GUERRAFORMERLY [facility] [id number] [facility] 2020-02-17 08:40:00 2020-02-17 08:40:00 [facility] [id number] [facility] 2020-02-17 00:00:00 2020-02-17 00:00:00 Patient Secure Msg [facility] BUILDING 1.2.840.114 350.1.13.10 4.2.7.2.686 [id number] [facility] 2020-02-15 11:00:00 2020-02-15 11:00:00 Outpatient R [facility] [id number] [facility] 2020-02-09 09:00:00 2020-02-09 09:00:00 [facility] [id number] [facility] 2020-02-09 00:00:00 2020-02-09 00:00:00 Patient Secure Castillo Devine [facility] TYLER OBANDOIO [facility] 1.2.840.114 350.1.13.10 4.2.7.2.686 [id number] [facility] 2020-02-08 13:00:00 2020-02-08 13:00:00 Outpatient R [facility] [id number] [facility] 2020-02-01 08:00:00 2020-02-01 08:00:00 Outpatient R [facility] [id number] [facility] 2020-01-30 13:00:00 2020-01-30 13:00:00 [facility] [id number] [facility] 2020-01-30 00:00:00 2020-01-30 00:00:00 Orders Only Doctor Unassigned, [place] [facility] 1.2.840.114 350.1.13.10 4.2.7.2.686 [id number] 2020-01-02 11:00:00 2020-01-02 11:00:00 [facility] [id number] [facility] 2019-12-28 10:20:00 2019-12-28 10:20:00 Outpatient Ann GUERRA CASTILLO [facility] [id number] [facility] 2019-12-23 11:00:00 2019-12-23 11:00:00 Outpatient R MAGNUS MARTIN [facility] [id number] [facility] 2019-12-01 09:45:00 2019-12-01 09:45:00 Outpatient R ROYCE HERNÁNDEZ [facility] [id number] [facility] 2019-11-22 13:30:00 2019-11-22 13:30:00 Outpatient R PENELOPE JENNINGS [facility] [id number] [facility] 2019-10-06 14:30:00 2019-10-06 14:30:00 Outpatient R PENELOPE JENNINGS [facility] [id number] [facility] 2019-10-05 13:00:00 2019-10-05 13:00:00 Outpatient R CASTILLO GUERRA [facility] [id number] [facility] 2019-10-03 11:30:00 2019-10-03 11:30:00 Outpatient R SANDEEP MAGANA [facility] [id number] [facility] 2019-08-31 10:00:00 2019-08-31 10:00:00 Outpatient R STEFFEN AKERS DENISE [facility] [id number] [facility] 2019-08-25 13:00:00 2019-08-25 13:00:00 Outpatient R PENELOPE JENNINGS [facility] [id number] [facility] 2019-08-24 09:45:00 2019-08-24 09:45:00 Outpatient R DIANNE CHOPRA [facility] [id number] [facility] 2019-08-12 12:00:00 2019-08-12 12:00:00 Outpatient R MAGNUS MARTIN [facility] [id number] [facility] 2019-08-10 10:00:00 2019-08-10 10:00:00 Outpatient R ELISE CARLTON STRAHIL [facility] [id number] [facility] 2019-08-01 13:30:00 2019-08-01 13:30:00 Outpatient R NOÉ ROMAN [facility] [id number] [facility] 2019-07-29 11:30:00 2019-07-29 11:30:00 Outpatient R NOÉ ROMAN [facility] [id number] [facility] 2019-07-19 09:00:00 2019-07-19 09:00:00 Outpatient R HONG COULTER [facility] [id number] [facility] 2019-07-12 14:30:00 2019-07-12 14:30:00 Outpatient R PENELOPE JENNINGS [facility] [id number] [facility] 2019-07-08 09:45:00 2019-07-08 09:45:00 Outpatient R HITESH RIKAROYCE FARMER [facility] [id number] [facility] 2019-07-05 13:00:00 2019-07-05 13:00:00 Outpatient R CHARLIEKAMERONAKIN [facility] [id number] [facility] 2019-06-03 13:49:29 2019-06-03 16:34:00 Emergency X BOO LOZOYA [facility] ERT [id number] [facility] 2019-05-09 13:17:08 2019-05-09 23:59:00 Outpatient R JACQUELINE, JUSTYN [facility] [id number] [facility] 2015-01-10 00:00:00 2015-01-10 00:00:00 Patient Secure Magnus Johnson [facility] 1.2.840.114 350.1.13.10 4.2.7.2.686 [id number] [facility] 2012-04-16 00:00:00 2012-04-16 10:49:00 Outpatient [facility] [id number] [facility] 2012-04-16 00:00:00 2012-04-16 09:38:00 Outpatient [facility] [id number] [facility] 2012-03-31 00:00:00 2012-03-31 15:18:00 Outpatient [facility] [id number] [facility] 2012-03-08 00:00:00 2012-03-08 12:44:00 Outpatient [facility] [id number] [facility] 2011-12-18 00:00:00 2011-12-18 10:39:00 Outpatient [facility] [id number] [facility] 2011-12-15 00:00:00 2011-12-15 09:44:00 [id number] 2011-11-20 00:00:00 2011-11-20 11:43:00 [facility]patient [facility] [id number] [facility] 2011-08-22 00:00:00 2011-08-22 12:40:00 [facility]patient [facility] [id number] [facility] 2011-08-15 00:00:00 2011-08-15 09:17:00 [facility]patient [facility] [id number] [facility] 2011-08-13 00:00:00 2011-08-13 14:46:00 [facility]patient [facility] [id number] [facility] 2011-08-06 00:00:00 2011-08-06 09:20:00 [facility]patient [facility] [id number] [facility] 2011-07-07 00:00:00 2011-07-07 11:30:00 [facility]patient [facility] [id number] [facility] 2011-05-30 00:00:00 2011-05-30 13:44:00 [facility]patient [facility] [id number] [facility] 2011-05-14 00:00:00 2011-05-14 13:39:00 Outpatient [facility] [id number] [facility] 2011-05-05 00:00:00 2011-05-05 16:02:00 [facility]patient [facility] [id number] [facility] 2011-04-16 00:00:00 2011-04-16 11:26:00 [facility]patient [facility] [id number] [facility] 2011-03-19 00:00:00 2011-03-19 16:11:00 Outpatient [facility] [id number] [facility] 2011-02-12 00:00:00 2011-02-12 12:46:00 Outpatient [facility] [id number] [facility] Results Test Description Test Time Test Comments [...] mg/0.05 mL ?Route: Intravitreal, Site: Left Eye ?[facility]: [address]-7, Lot: [id number], Expiration date: 02/26/2024 Post-opPost injection exam found [...] Akten 3.5% Leonarda Purvis ?12/03/2023 ?10:47 AM [facility] [id number] 23:28:32 * Test Item Value Reference Range Interpretation Comme nts TSH (test code = 7895895483) 1.20 0.45-4.70 Lab Interpretation (test cod e = 75189-3) Normal [facility] [id number] 23:15:14* Test Item Value Reference Range Interpretation Comme nts FREE T4 (test code = 2604788241) 1.16 0.78-2.20 Lab Interpretation (test cod e = 40932-3) Normal [facility] [id number] 23:14:52* Test Item Value Reference Range Interpretation Comme nts FREE T3 (test code = 6741924154) 3.32 pg/mL 2.77-5.27 Lab Interpretation (test cod e = 97081-1) [facility]2023-11-06 23:02:22* Test Item Value Reference Range Interpretation Comme nts HGB A1C (test code = 4548-4) 7.5 % 4.0-5.7 H SAM (test code = SAM) Reference RangesNormal: <5.7%Prediabetes: 5.7 - 6.4%Diabetes: > 6.5% Lab Interpretation (test code = 67862-3) Abnormal [facility] Center[facility] (89950)(Total Cholesterol, Triglycerides, HDL)2023-11-06 23:00:28* Test Item Value Reference Range Interpretation Comme nts CHOL (test code = 3615354851) 210 mg/dL 120-200 H HDL (test code = 3163494696) 92 mg/dL >=50 HDLC RATIO (test code = 1960651771) 2.3 <=4.5 TRIG (test code = 1222371022) 81 mg/dL 30-170 LDL CHOL (test code = 43442-9) 102 mg/dL <=160 VLDL (test code = 0522758608) 16 mg/dL 5-60 Lab Interpretation (test cod e = 75006-5) [facility]normal [facility] (00092)2023-11-06 23:00:27* Test Item Value Reference Range Interpretation Comme nts NA (test code = 4431345571) 137 mmol/L 135-145 K (test code = 3885244794) 4.3 mmol/L 3.5-5.0 CL (test code = 3466611966) 101 mmol/L 98-108 CO2 TOTAL (test code = 2672733018) 30 mmol/L 23-31 AGAP (test code = 8117267794) 6 2-16 BUN (test code = 6968250074) 18 mg/dL 7-23 GLUCOSE (test code = 2161162528) 230 mg/dL 70-110 H CREATININE (test code = 2160-0) 0.63 mg/dL 0.50-1.04 TOTAL BILI (test code = 8989782754) 0.6 mg/dL 0.1-1.1 CALCIUM (test code = 8539588627) 9.3 mg/dL 8.6-10.6 T PROTEIN (test code = 2019890864) 7.6 g/dL 6.3-8.2 ALBUMIN (test code = 5836936243) 4.1 g/dL 3.5-5.0 ALK PHOS (test code = 7431939812) 132 U/L 34-122 H ALTv (test code = 1742-6) 17 U/L 5-35 AST(SGOT) (test code = 6892252130) 26 U/L 13-40 eGFR (test code = 61003-4) 95.6 mL/min/1.73m2 CKD-EPI eGFR (2020). Assuming creatinine has been stable day-to-day for at least three months, the eGFR indicates Category G1 (>= 90 mL/min/1.73 m2) Lab Interpretation (test code = 30328-1) Abnormal [facility] with [id number] 22:03:43* Test Item Value Reference Range Interpretation [...] 32.4 g/dL 31.6-35.1 RDW-SD (test code = 36478-4) 45.9 fL 39.0-49.9 RDW-CV (test code = 788-0) 13.1 % 12.0-15.5 PLT (test code = 777-3) 219 166-358 MPV (test code = 68036-7) 10.8 fL 9.5-12.9 NRBC/100 WBC (test code = 6270113238) 0.0 0.0-10.0 NRBC x10^3 (test code = 2208905006) See_Comment [Automated messa ge] The system which generated this result transmitted reference range: 10*3/?L. The reference range was not used to interpret this result as normal/abnormal. GRAN MAT (NEUT) % (test code = 770-8) 60.4 % IMM GRAN % (test code = 7068655214) 0.30 % LYMPH % (test code = 736-9) 34.2 % MONO % (test code = 5905-5) 4.3 % EOS % (test code = 713-8) 0.1 % BASO % (test code = 706-2) 0.7 % GRAN MAT x10^3(ANC) (test code = 1095569552) 4.59 10*3/uL 1.88-7.09 IMM GRAN x10^3 (test code = 9580810342) 0.00-0.06 LYMPH x10^3 (test code = 731-0) 2.60 10*3/uL 1.32-3.29 MONO x10^3 (test code = 742-7) 0.33 10*3/uL 0.33-0.92 EOS x10^3 (test code = 711-2) 0.03-0.39 L BASO x10^3 (test code = 704-7) 0.05 10*3/uL 0.01-0.07 Lab Interpretation (test code = 53492-9) Abnormal [facility] Center[facility], Pharmacologic Agent - OS - Left [id number] 15:58:35Table formatting from the original result was not included.Time Out10/29/2023. 10:58 AM. Confirmed correct patient, procedure, site, and patient consented. AnesthesiaTopical anesthesia was used. Anesthetic medications included Lidocaine 3.5% gel, Proparacaine 0.5%. ProcedurePreparation included 5% betadine to ocular surface. A 32 gauge needle was used. Injection:1.25 mg bevacizumab 1.25 mg/0.05 mL?Route: Intravitreal, Site: Left Eye ?[facility]: [address]-8, Lot: [id number], Expiration date: 02/05/2024 Post- opPost injection exam [...] Anesthesia: Akten 3.5% Ev Coombs ?10/29/2023 ?10:28 [facility]ravitreal In[facility], Pharmacologic Agent - OS - Left [id number] 18:27:55Table formatting from the original result was not included.Time Out10/01/2023. 1:27 PM. Confirmed correct patient, procedure, site, and patient consented. AnesthesiaTopical anesthesia was used. Anesthetic medications included Lidocaine 3.5% gel, Proparacaine 0.5%. ProcedurePreparation included 5% betadine to ocular surface. A 32 gauge needle was used. Injection:1.25 mg bevacizumab 1.25 mg/0.05 mL ?Route: Intravitreal, Site: Left Eye ?[facility]: [address]-3, Lot: [id number], Expiration date: 024 Post-opPost injection exam found [...] Anesthesia: Akten 3.5% Keke Chery ?10/01/2023 ?1:07 PMUnUniversity [facility] PasoIntravitreal Injection, Pharmacologic Agent - OS - Left [id number] 17:31:36Table formatting from the original result was not included.Time Out08/13/2023. 12:31 PM. Confirmed correct patient, procedure, site, and patient consented. AnesthesiaTopical anesthesia was used. Anesthetic medications included Lidocaine 3.5% gel. ProcedurePreparation included 5% betadine to ocular surface. A 32 gauge needle was used. Injection:1.25 mg bevacizumab 1.25 mg/0.05 mL ?Route: Intravitreal, Site: Left Eye ?[facility]: [address]-4, Lot: [id number], Expiration date: 11/05/2023 Post- opPost injection exam [...] Betadine 5% ? Anesthesia: Akten 3.5% JAYLEN Ann DESHPANDEZA ?08/13/2023 ?11:15 AM [facility] CenterMR L[facility] SP[facility] WO [id number] 16:43:24 EXAM: MR LUMBAR SPINE WO CONTRAST [...] unremarkable. Right cortical renal cystmeasuring 1.3 cm noted.[facility] CenterIntravitreal Injection, Pharmacologic Agent - OS - Left [...] mg/0.05 mL ?Route: Intravitreal, Site: Left Eye ?[facility]: [address]-2, Lot: [id number], Expiration date: 10/08/2023 Post- opPost injection exam [...] Anesthesia: Akten3.5% Keke Chery ?07/09/2023 ?10:25 AM [facility] CenterInt[facility], Pharmacologic Agent - OS - Left [id number] 21:33:21Table formatting from the original result was not included.Time Out06/04/2023. 3:33 PM. Confirmed correct patient, procedure, site, and patient consented. AnesthesiaTopical anesthesia was used. Anesthetic medications included Lidocaine 3.5% gel, Proparacaine 0.5%. ProcedurePreparation included 5% betadine to ocular surface. A 32 gauge needle was used. Injection:1.25 mg bevacizumab 1.25 mg/0.05 mL ?Route: Intravitreal, Site: Left Eye ?[facility]: [address]-8, Lot: [id number], Expiration date: 09/10/2023 Post- opPost injection exam [...] Betadine 5% ? Anesthesia: Akten3.5% Keke Chery ?06/04/2023 ?3:24 PM [facility] HEMOGLOBIN A1C [id number] 19:56:00* Test Item Value Reference Range Interpretation Comme [facility] POCT HBA1C (test code = 4548-4) 7.6 % 4-6 A Lab Interpretation (test cod e = 06713-1) Abnormal [facility] HEMOGLOBIN A1C [id number] 19:56:00* Test Item Value Reference Range Interpretation Comme [facility] POCT HBA1C (test code = 4548-4) 7.6 % 4-6 A Lab Interpretation (test cod e = 97799-3) Abnormal [facility] GLUCOSE (AUTOMATED)2022-04-11 18:07:11* Test Item Value Reference Range Interpretation Comme [facility] POCT GLU (test code = 0616270710) 246 mg/dL 70-110 H Lab Interpretation (test cod e = 12741-0) Abnormal [facility] GLUCOSE (AUTOMATED)2022-04-11 18:07:11* Test Item Value Reference Range Interpretation Comme [facility] POCT GLU (test code = 1217671963) 246 mg/dL 70-110 H Lab Interpretation (test cod e = 44493-7) Abnormal [facility] CenterProthrombin Time / [id number] 17:57:26* Test Item Value Reference Range Interpretation Comme [facility] PROTIME PATIENT (test code = 5964-2) See_Comment [Automated [employer]] The system which generated this result transmitted reference range: 10.1 - 12.6 Seconds. The reference range was not used to interpret this result as normal/abnormal. INR (test code = 6301-6) Normal INR <1.1; Warfarin Therapeutic range 2.0 to 3.0 or 2.5 to 3.5, depending upon the indications. Lab Interpretation (test code = 55954-1) [id number] 17:57:26* Test Item Value Reference Range Interpretation Comme [facility] PROTIME PATIENT (test code = 5964-2) See_Comment [[employer]ated [employer]] The system which generated this result transmitted reference range: 10.1 - 12.6 Seconds. The reference range was not used to interpret this result as normal/abnormal. INR (test code = 6301-6) Normal INR <1.1; Warfarin Therapeutic range 2.0 to 3.0 or 2.5 to 3.5, depending upon the indications. Lab Interpretation (test code = 52950-3) Normal [facility] HEMOGLOBIN A1C [id number] 20:26:00* Test Item Value Reference Range Interpretation Comme [facility] POCT HBA1C (test code = 4548-4) 7.4 % 4-6 A Lab Interpretation (test cod e = 45979-4) Abnormal [facility] HEMOGLOBIN A1C [id number] 20:26:00* Test Item Value Reference Range Interpretation Comme [facility] POCT HBA1C (test code = 4548-4) 7.4 % 4-6 A Lab Interpretation (test cod e = 55253-4) Abnormal [facility] Notes Date/Time Note Provider Source 2023-12-24 15:41:33 Call placed to nurse who is requesting order for OT (evaluation and treatment), due to continued neck pain, limited ROM, reporting has continued in the past 3 weeks. Reports pt took a muscle relaxer that left her feeling weak and had to be seen in ER. Reports dosage was changed to 1/2 tablet. Call placed to pt, advised she will need an appt for new orders and worsening of neck pain. Pt is scheduled to RTC 12/30/2023 @ 1600. Recent Visits Date Type Provider Dept 11/06/23 Office Visit Rajni Momin MD [facility] 11/06/23 Office Visit Rajni Momin MD [facility] 07/29/23 Office Visit Rajni Momin MD [facility] 01/13/23 Office Visit Rajni Momin MD [facility] 09/03/22 Office Visit Rajni Momin MD [facility] 09/03/22 Office Visit Rajni Momin MD [facility] Showing recent visits within past 540 days with a meds authorizing provider and meeting all other requirements Future Appointments Date Type Provider Dept 05/11/24 Appointment Rajni Momin MD [facility] Showing future appointments within next 150 days with a meds authorizing provider and meeting all other requirements Alison Samano RN [facility] 2023-12-24 15:09:31 Liss Rivera is a 68 year old female and Cornelia a nurse with [facility] is calling asking if orders can be placed for the pt. Is asking for OT orders for evaluation and treatment. Luz Valentine [facility] 2023-12-10 15:42:42 Call placed to , Reports will send orders via Suture Sign. Alison Samano RN [facility] 2023-12-10 14:48:22 Liss Rivera is a 68 year old female Elizabeth with [facility] called to advise recert for HH on 12/09/23 and needs auth for the recert Call at [phone] Also reported pt Seen in [facility] ER on 12/07/23 for dizziness, no changes Dominique Crouch [facility] 2023-12-08 13:44:11 Medical records received [facility] placed in Dr. Momin folder for review. Phylicia Matias [facility] 2023-12-07 16:54:56 Images from the original note were not included. [facility] Notification placed in Dr Momin folder for review. Phylicia Matias [facility] 2023-11-30 10:34:54 Images from the original note [...] Momin MD Last refill: 11/02/2023 Rx #: [id number] Provider Review Required Alukyr1011/28/2023 05:56 AM Protocol Details This refill cannot be delegated Valid encounter within last 12 months To be filled at: [facility] [address] [place] [address] 11-06-2023 NOV 05-11-2024 Ena Mary MA [facility] 2023-11-06 14:45:00 Images from the original note were not included. Venipuncture collection performed by clean technique on the left anticubitus. Total of 1 attempts were made. Slight pressure and a bandage/dressing were applied to the site(s). The patient experienced no complications. The following specimens were processed according to instructions and sent to [facility] laboratories per lab order on 11/06/2023: LT BLUE SST 2 RED LAV 2 PPT DK GREEN (LiHep) DK GREEN (SodH) VELOZ DK BLUE (K2) DK BLUE (S) ACD Blood Culture NIPT/NTD [facility] 2023-11-06 13:40:00 Your lab results are back [...] appointment. Thanks. Sincerely, Rajni Momin MD, MPH [employer] Application Developer, Department of Family Medicine [facility] Primary & Specialty Care - [facility] 2023-11-02 13:14:51 Images from the original note were not included. Last OV: 07/29/23 with Rajni Momin MD Last Refill:09/28/23 prescribed by Rajni Momin MD Last Labs Pertaining to Med:07/29/23 Future Appt: Future Appointments Provider Department Dept Phone 11/06/2023 1:20 PM Rajni Momin MD [facility] [place] [phone] 11/06/2023 1:40 PM Rajni Momin MD [facility] [place] [phone] 12/03/2023 10:15 AM Royce Hernández MD [facility] [phone] 04/22/2024 11:30 AM Magnus Martin MD [facility], [facility] [phone] Requested Renewals Name from pharmacy: Cyclobenzaprine HCl [...] Momin MD Last refill: 09/01/2023 Rx #: [id number] Provider Review Required Jeqizr6711/02/2023 12:25 PM Protocol Details This refill cannot be delegated Valid encounter within last 12 months To be filled at: [facility] [address] [place] [address] Raquel Goode MA [facility] 2023-11-02 08:32:11 Pt was made aware to call clinic for f/u if pain did not improve. Alison Samano RN [facility] 2023-10-31 15:52:34 Please schedule appointment for pain if persisent COMMERCIAL SALES SPECIALIST-FAMILY MIDLEVEL PROVIDER [facility] 2023-10-30 16:42:12 Pt was triaged on 10/28/2023, please see TE. [facility] 2023-10-30 16:31:57 Images from the original note were not included. Placed in nurse folder. Sammi Ruiz [facility] 2023-10-28 15:36:33 Pt states feels a dull [...] understanding and agrees w/POC. Alison Samano RN [facility] 2023-10-28 15:24:50 Cornelia with [facility] [employer] is stating that the patient is complaining [...] radiate anywhere. Please call the patient at [phone] after 2pm. Hermilo Dinh [facility] 2023-10-28 14:24:17 Annual Wellness Visit - Pre Visit Outreach Patient name: Liss Rivera Patient First outreach attempt regarding Annual Wellness Visit. Call outcome: Spoke to patient she stated she has a paper copy already. HRA outcome: paper copy to bring with to appointment Future Appointments Provider Department Dept Phone 10/29/2023 10:00 AM [facility]ce [facility] [phone] 11/06/2023 1:20 PM Rajni Momin MD [facility] [place] [phone] 11/06/2023 1:40 PM Rajni Momin MD [facility] [place] [phone] 04/22/2024 11:30 AM Magnus Martin [facility] [phone] Audrey Bartholomew MA [facility] 2023-10-15 08:57:58 Images from the original note were not included. Episode Summary Report Phylicia Matias [facility] 2023-10-13 11:48:24 Informed Elizabeth with [facility] for re-certification, states done every 3 months for education. Pt has appt 11/2023 for follow up. Alison Samano RN [facility] 2023-10-13 08:50:19 Elizabeth with [facility] health requesting call back to re certify the patient for home health. Please advise. Atul Schwarz [facility] 2023-10-01 13:36:40 Images from the original note were not included. Scanned in folder and placed in provider basket for review. Genna Gray [facility] 2023-09-28 07:26:41 Images from the original note [...] Momin MD Last refill: 09/01/2023 Rx #: [id number] Provider Review Required Eyhnwa1509/28/2023 05:53 AM Protocol Details This refill cannot be delegated Valid encounter within last 12 months To be filled at: [facility] [address] [place] [address] Recent Visits Date Type Provider Dept 07/29/23 Office Visit Rajni Momin MD [facility] 01/13/23 Office Visit Rajni Momin MD [facility] 09/03/22 Office Visit Rajni Momin MD [facility] 09/03/22 Office Visit Rajni Momin MD [facility] 04/23/22 Office Visit Rajni Momin MD [facility] Showing recent visits within past 540 days with a meds authorizing provider and meeting all other requirements Future Appointments Date Type Provider Dept 11/06/23 Appointment Rajni Momin MD [facility] 11/06/23 Appointment Rajni Momin MD [facility] Showing future appointments within next 150 days with a meds authorizing provider and meeting all other requirements Annika Rebolledo LVN [facility] 2023-09-24 10:06:34 Images from the original note were not included. Faxed to [facility] Him department. Genna Gray [facility] 2023-08-31 07:59:55 Discharged to self care. F/u with pcp for monitoring -FAMILY MEDICINE STAFF [facility] 2023-08-24 12:23:04 Called patient and informed message below per Tanisha. Patient states mrialax has not been helping. Per LILIBETH Sauceda a OV will be recommend. Patient has been schedule for 09-01-2023 at 10:30 am. 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 [facility] 2023-08-21 14:43:40 Cornelia the patient's home health nurse requesting to speak with nurse. Patient is having some difficulty with constipation and wanting to see if lactulose would be appropriate for the patient and if so if it can be sent to pharmacy. Concerned about it raising her blood sugar. When calling back, please call the patient. Please advise. [facility] [address] [place] [id number] Atul Schwarz [facility] 2023-08-21 09:02:26 Medical record received from Alvin Enciso scanned in folder and placed in provider basket for review. Genna Gray [facility] 2023-08-07 10:13:16 Patient was rescheduled to 08/12. Mirtha Gale [facility] 2023-08-06 07:45:11 Liss Rivera is a 67 year old female Patient is calling to cancel today's Injection appointment, but is requesting to reschedule for some time this month. Please contact when available Lesly Lopez [facility] 2023-07-30 15:46:40 Forms completed and faxed to [phone]. Alison Samano RN [facility] 2023-07-29 16:30:00 Images from the original note were not included. Venipuncture collection performed by clean technique on the left forearm(s). Total of 1 attempts were made. Slight pressure and a bandage/dressing were applied to the site(s). The patient experienced no complications. The following specimens were processed according to instructions and sent to [facility] laboratories per lab order on 07/29/2023 : LT BLUE 2 SST RED 2 LAV PPT DK GREEN (LiHep) DK GREEN (SodH) VELOZ DK BLUE (K2) DK BLUE (S) ACD Blood Culture NIPT/NTD Patient has been identified by and name and was provided with cup, antiseptic towelette, and clean catch instructions. 1 urine specimen(s) sent. 1 Unpreserved Urine Culture Aptima tube Other urine [facility] 2023-07-29 15:49:40 Patient here for visit to discuss paper work Raquel Goode MA 07/29/2023 3:50 PM Raquel Goode MA [facility] 2023-07-29 12:43:50 Images from the original note were not included. Forms received Alvin Enciso placed in nurse fax folder. Phylicia Matias [facility] 2023-07-29 12:39:24 Routing to correct clinic Suri Oden LVN [facility] 2023-07-29 12:19:23 Aurelio Esquivel [facility] [phone] Received incomplete paperwork for home health Needs a medical diagnosis codes and secondary page to be filled out. Can take info verbally. Requesting expedite attn to this matter, Please F/u Vince Cano [facility] 2023-07-24 16:02:53 Per forms to be filled out at on 07/29/2023. Pt notified, forms in nurse cabinet. Alison Samano RN [facility] 2023-07-23 16:23:18 Images from the original note were not included. Phylicia Matias [facility] 2023-07-02 15:35:51 Images from the original note [...] Momin MD Last refill: 06/01/2023 Rx #: [id number] Provider Review Required Pqfngg7307/02/2023 03:23 PM Protocol Details This refill cannot be delegated Valid encounter within last 12 months To be filled at: [facility] [address] Last Refilled: 06/01/2023 Recent Visits Date Type Provider Dept 01/13/23 Office Visit Rajni Momin MD [facility] 09/03/22 Office Visit Rajni Momin MD [facility] 09/03/22 Office Visit Rajni Momin MD [facility] 04/23/22 Office Visit Rajni Momin MD [facility] 01/17/22 Office Visit Rajni Momin MD [facility] Showing recent visits within past 540 days with a meds authorizing provider and meeting all other requirements Future Appointments Date Type Provider Dept 07/29/23 Appointment Rajni Momin MD [facility] Showing future appointments within next 150 days with a meds authorizing provider and meeting all other requirements Sneed MA [facility] 2023-06-03 08:20:46 Spoke with patient and went [...] she can get her strips. Narvaez LVN [facility] 2023-06-02 15:10:42 Received Medicare Usage Necessity High Utilization form from [facility] requesting Providers signature. Placed in Providers Box. MGR Katlin Posadasnan [facility] 2023-06-02 13:54:20 Liss Rivera is a 67 year old female Patient calling in requesting to speak with Nelida, in regards to her diabetic testing strips. Pt is aware Dr. Martin will not be at the location until Thursday (06/05/23) and the form will be signed and faxed back then. Pt states she's been waiting for over a week. Please advise [phone] MGR Suzanne Baig [facility] 2023-06-02 13:21:30 Left voicemail with Katina to let them know Dr. Martin will not be in this location until Thursday (06/05/23) and the form will be signed and faxed back then. Narvaez LVN [facility] 2023-06-02 12:03:04 [facility] calling to check the status of a Medicare Usage Necessity High Utilization form has been received and completed for rx blood sugar diagnostic (ACCU-CHEK GUIDE TEST STRIPS) strip . Pls advise. Mcgill [facility] 2023-06-02 12:02:10 Liss Rivera is a 67 year old female Pt is calling because she needs her testing strips. Pt states that Dr. Martin needs to fill out a form and send it back to the pharmacy in order for them to fill the RX. Pt tests BS QID. Please advise MGR Angie Carson [facility] 2023-06-01 11:18:30 Rx sent, let patient know, and to follow-up as scheduled. [facility] 2023-06-01 09:17:11 Images from the original note were not included. . [facility] Phylicia Matias [facility] 2023-05-29 13:28:27 Images from the original note [...] Momin MD Last refill: 03/02/2023 Rx #: [id number] Neuropathic Pain Ntnztx8705/29/2023 05:52 AM Protocol Details Manual Review: Verify no changes in dose in the last 3 months Valid encounter within last 12 months To be filled at: [facility] [address] Recent Visits Date Type Provider Dept 01/13/23 Office Visit Rajni Momin MD [facility] 09/03/22 Office Visit Rajni Momin MD [facility] 09/03/22 Office Visit Rajni Momin MD [facility] 04/23/22 Office Visit Rajni Momin MD [facility] 01/17/22 Office Visit Rajni Momin MD [facility] Showing recent visits within past 540 days with a meds authorizing provider and meeting all other requirements Future Appointments Date Type Provider Dept 07/29/23 Appointment Rajni Momin MD [facility] Showing future appointments within next 150 days with a meds authorizing provider and meeting all other requirements MGR Charlee Garcia MA [facility] 2023-05-28 08:22:57 Images from the original note were not included. MGR Angie Villatoro [facility] 2023-05-22 08:55:08 Liss Rivera is a 67 year old female [phone] (home) Pt is returning call.pt can take the 06/04 appt if it can be at 2:00 or after if not pt will keep the 06/11 appt. Please call and advise MGR Trish Tamayo [facility] 2023-05-22 08:29:24 Liss Rivera is a 67 year old female Patient is not able to come on 05/28/23 or 06/04/23. Patient is schedule for 06/11/23. MGR Jocelin Shahid [facility] 2023-05-21 15:01:13 Liss Rivera is a 67 year old female Pt is calling to check other available dates for injections on 05/28/2023. No schedule is available. Please advise. [phone] (home) MGR Peña Krueger [facility] 2023-05-05 07:37:33 Images from the original note [...] Momin MD Last refill: 02/09/2023 Rx #: [id number] Neuropathic Pain Thzheh7505/05/2023 05:53 AM Protocol Details Manual Review: Verify no changes in dose in the last 3 months Valid encounter within last 12 months To be filled at: [address] 01-13-2023 07-29-2023 MGR Ena Mary MA [facility] 2023-01-08 10:30:00 Formatting of this n ote is different from the original. Images from the original note were not included. Venipuncture collection performed by clean technique on the left anticubitus. Total of 1 attempts were made. Slight pressure and a bandage/dressing were applied to the site(s). The patient experienced no complications. The following specimens were processed according to instructions and sent to [facility] laboratories per lab order on 01/08/2023 : LT BLUE SST RED LAV 1 PPT DK GREEN (LiHep) DK GREEN (SodH) VELOZ DK BLUE (K2) DK BLUE (S) ACD Blood Culture NIPT/NTD Patient has been identified by and was provided with cup, antiseptic towelette, and clean catch instructions. 1 urine specimen(s) sent. Unpreserved 1 Urine Culture Aptima tube Other urine [facility] 2022-12-08 11:29:13 Formatting of this n ote might be different from the original. Form signed by provider and faxed to [phone]. Jennifer Almeida RN [facility] 2022-11-27 11:06:57 Formatting of this n ote might be different from the original. Medical Necessity form for high utilization received from [facility]. Form completed and placed in provider's folder for review and signature. Will fax to [phone] once completed Derrick Rodríguez RN [facility] 2022-11-22 14:45:49 Formatting of this n ote might be different from the original. NOV: 03/20/23 SASKIA: 08/22/22 Refill sent Jennifer Almeida RN [facility] 2022-11-18 15:22:35 Formatting of this n ote might be different from the original. Images from the original note were not included. [facility]
[2023-12-29 20:37] LABS: Absolute Basophils 0.1 K/uL (0-0.5); Absolute Eosinophils 0.1 K/uL (0-0.5); Absolute Lymphocytes (CBC) 1.6 K/uL (0.7-4.9); Absolute Monocytes 0.6 K/uL (0.1-1.3); Absolute Neutrophil 7.2 K/uL (1.8-8.0); Basophils % 0.8 % (0-1.3); Eosinophils % 0.8 % (0-4.4); Hematocrit 35.7 % (36.0-45.0); Hemoglobin 12.1 g/dL (12.0-15.0); Lymphocytes % 16.6 % (15.3-44.8); MCHC 33.7 g/dL (32.0-36.0); MCV 91.9 fL (80-100); Monocytes % 6.1 % (3.3-12.3); Neutrophils % 75.7 % (41.7-73.7); Nucleated Red Blood Cells % 0.1 % (0-0); Platelets 230 thou/uL (152-406); RBC Red Blood Cell Count 3.89 M/uL (3.86-4.86); Red Cell Distribution Width 13.4 % (12.1-15.2)
--- NOTE | 2023-12-29 20:58 | RAD REPORT ---
EXAM DESCRIPTION: Javed Noel And Kiarra (2 Views)12/29/2023 8:45 pm CLINICAL HISTORY: Chest COMPARISON: October 2023 FINDINGS: The lungs appear clear of acute infiltrate. The heart is normal size IMPRESSION: No acute abnormalities displayed
[2023-12-29 21:06] LABS: PT Prothrombin Time 11.5 SECONDS (9.4-12.5); Protime INR 1.03
[2023-12-29] MEDS ORDERED: ONDANSETRON 4 MG/2 ML VIAL ONE (21:18)
[2023-12-29] MEDS ORDERED: FENTANYL CITR 100 MCG/2 ML ONE (21:18)
[2023-12-29] MEDS ORDERED: NA CHLORIDE 0.9% 1,000 ML ONE (21:19)
[2023-12-29 22:07] LABS: Bicarbonate 27 mEq/L (21-32); Potassium 3.8 mEq/L (3.5-5.1); Sodium Level 137 mEq/L (136-145)
[2023-12-29 22:08] LABS: ALT/SGPT 24 U/L (13-56); AST/SGOT 18 U/L (15-37); Alkaline Phosphatase 114 U/L (45-117); Anion Gap 12.8 mEq/L (5.0-15.0); BUN Blood Urea Nitrogen 21 mg/dL (7-18); Bilirubin Total 0.3 mg/dL (0.2-1.0); Glomerular Filtration Rate 62 ml/min (=/>90); Glucose Level 284 mg/dL (74-106)
[2023-12-29 22:09] LABS: Albumin 3.3 g/dL (3.4-5.0); Albumin/Globulin Ratio 0.8 (1.1-1.8); Globulin 4.3 g/dL (2.3-3.5); Lipase 51 U/L (13-75); Magnesium 1.8; NT PRO-BNP 21 pg/mL (<125); Protein, Total 7.6 g/dL (6.4-8.2); Troponin High Sensitivity < 3.0 (<58.9)
[2023-12-29 22:20] LABS: Bilirubin Direct < 0.1 mg/dL (0-0.2); Bilirubin Indirect, Calculated ND mg/dL (0.2-0.8)
[2023-12-29] MEDS ORDERED: ASPIRIN 81 MG CHEWABLE TABLET ONE (23:31)
[2023-12-29] MEDS ORDERED: METOPROLOL TAR 50 MG TAB ONE (23:31)
--- NOTE | 2023-12-29 23:53 | ER ---
Nurse's Notes [facility] Name: Liss Ro Age: 68 yrs Sex: Female : 1955 Arrival Date: 12/29/2023 Time: 19:34 Bed 6 Private MD: Diagnosis: Unspecified symptoms and signs involving the musculoskeletal system;Strain of muscle and tendon of back wall of thorax, initial encounter;Tachycardia, unspecified Presentation: 12/28 19:44 Chief complaint: Patient states: upper back and neck pain x1 week. states flexeril is kc not working. Coronavirus screen: At this time, the client does not indicate any symptoms associated with coronavirus-19. Ebola Screen: No symptoms or risks identified at this time. Initial Sepsis Screen: Does the patient meet any 2 criteria? HR > 90 bpm. Does the patient have a suspected source of infection? No. Patient's initial sepsis screen is negative. Risk Assessment: Do you want to hurt yourself or someone else? Patient reports no desire to harm self or others. Onset of symptoms was December 29, 2023. 19:44 Method Of Arrival: Wheelchair [facility] 19:44 Acuity: MALINI 3 kc6 Triage Assessment: 19:46 General: Appears in no apparent distress. comfortable, well groomed, well developed, [facility] Behavior is calm, cooperative, appropriate for age. Pain: Complains of pain in base of the skull and back. Musculoskeletal: Circulation, motion, and sensation intact. Capillary refill < 3 seconds, Range of motion: intact in all extremities. Historical: - Allergies: 19:46 Bactrim; kc6 19:46 Codeine; kc6 19:46 Flagyl; kc6 19:46 Morphine; kc6 19:46 Sulfa (Sulfonamide Antibiotics); kc6 19:46 tramadol; kc6 - PMHx: 19:46 Anxiety; PTSD; Hypertension; Diabetes - IDDM; Positional Vertigo; Herniated disc; kc6 - PSHx: 19:46 section; Cholecystectomy; carpal tunnel; hysterectomy; kc6 - Immunization history:: Client reports having NOT received the Covid vaccine. Flu vaccine is not up to date. - Infectious Disease History:: Denies. - Social history:: Smoking status: Patient denies any tobacco usage or history of. - Family history:: not pertinent. Screenin:59 [facility] ED Fall Risk Assessment (Adult) History of falling in the last 3 months, kc6 including since admission No falls in past 3 months (0 pts) Confusion or Disorientation No (0 pts) Intoxicated or Sedated No (0 pts) Impaired Gait Yes (1 pt) Mobility Assist Device Used Yes (1 pt) Altered Elimination No (0 pt) Score/Fall Risk Level 0 - 2 = Low Risk. Abuse screen: Denies threats or abuse. Denies injuries from another. Nutritional screening: No deficits noted. Tuberculosis screening: No symptoms or risk factors identified. Assessment: 20:30 General: Appears in no apparent distress. Behavior is calm, cooperative. Pain: al5 Complains of pain in right mid back and left mid back and right subscapular area and left subscapular area and thoracic area and right scapular area and left scapular area and back. Neuro: Level of Consciousness is awake, alert, obeys commands, Oriented to person, place, time. Cardiovascular: Patient's skin is warm and dry. Respiratory: Airway is patent Respiratory effort is even, unlabored, Respiratory pattern is regular, symmetrical. GI:. : No signs and/or symptoms were reported regarding the genitourinary system. EENT: No signs and/or symptoms were reported regarding the EENT system. Derm: Skin is intact, Skin is pink, warm \\T\\ dry. normal. Musculoskeletal: Reports pain in right mid back and left mid back and right subscapular area and left subscapular area and thoracic area and right scapular area and left scapular area and back. 22:00 Reassessment: Patient appears in no apparent distress at this time. No changes from al5 previously documented assessment. Patient and/or family updated on plan of care and expected duration. Pain level reassessed. Patient is alert, oriented x 3, equal unlabored respirations, skin warm/dry/pink. 23:00 Reassessment: Patient appears in no apparent distress at this time. No changes from al5 previously documented assessment. Patient and/or family updated on plan of care and expected duration. Pain level reassessed. Patient is alert, oriented x 3, equal unlabored respirations, skin warm/dry/pink. Vital Signs: 19:44 BP 136 / 69; Pulse 123; Resp 19 S; Temp 98.6(O); Pulse Ox 98% on R/A; Weight 74.84 kg kc6 (R); Height 4 ft. 11 in. (R); Pain 7/10; 20:00 BP 141 / 69; Pulse 108; Resp 18; Pulse Ox 100% on R/A; al5 20:25 BP 151 / 76 RA; al5 20:25 BP 141 / 69 LA; al5 21:00 BP 143 / 63; Pulse 108; Resp 18; Pulse Ox 100% on R/A; al5 21:30 BP 134 / 64; Pulse 98; Resp 17; Pulse Ox 97% on R/A; al5 22:00 BP 137 / 62; Pulse 92; Resp 19; Pulse Ox 100% on R/A; al5 23:00 BP 117 / 53; Pulse 98; Resp 17; Pulse Ox 100% on R/A; al5 23:30 BP 136 / 61; Pulse 103; Resp 20; Pulse Ox 99% on R/A; al5 12/29 00:00 BP 134 / 68; Pulse 98; Resp 17; Pulse Ox 100% on R/A; al5 12/28 19:44 Body Mass Index 33.33 (74.84 kg, 149.86 cm) [facility] 12/28 19:44 Pain Scale: Adult [facility] ED Course: 12/28 19:40 Patient arrived in ED. ra3 19:45 Triage completed. [facility] 19:46 Arm band placed on. [facility] 19:59 EKG completed in triage. Results shown to MD. [facility] 19:59 Patient has correct armband on for positive identification. Bed in low position. Call [facility] light in reach. Side rails up X2. quality assurance monitor final on. Pulse ox on. NIBP on. Pillow given. 20:07 Lon Anthony MD is Attending Physician. ryan 20:25 Ena Pitts, KAVITA is Primary Nurse. al5 20:30 Inserted saline lock: 20 gauge in right antecubital area, using aseptic technique. ha1 Blood collected. Flushed with 10 mL NS. 20:33 Basic Metabolic Panel Sent. ha1 20:33 CBC with Diff Sent. ha1 20:33 LFT's Sent. ha1 20:33 Magnesium Sent. ha1 20:33 NT PRO-BNP Sent. ha1 20:33 PT-INR Sent. ha1 20:33 Troponin HS Sent. ha1 20:47 Chest Pa And Lat (2 Views) XRAY In Process Unspecified. EDMS 22:17 Provided Education on: processes and procedures, medications. al5 22:17 No provider procedures requiring assistance completed. al5 23:16 Urinalysis w/ reflexes Sent. al5 23:16 Troponin HS: 1045 pm Sent. al5 23:19 CT Aorta for Dissection In Process Unspecified. EDMS 23:52 Tariq Quarles MD is Referral Physician. [facility] 12/29 00:13 IV discontinued, intact, bleeding controlled, No redness/swelling at site. Pressure al5 dressing applied. Administered Medications: 12/28 21:42 Drug: NS 0.9% IV 1000 ml IV at 1 bolus Per protocol; 1000 mL bolus Route: IV; Rate: 1 al5 bolus; Site: right antecubital; 23:16 Follow up: Response: No adverse reaction; IV Status: Completed infusion; IV Intake: al5 1000ml 21:42 Drug: fentaNYL (PF) IVP 25 mcg IVP once {Note: patient only wanted half of the al5 medication because she "does not know what it will do to [her] and [she] has anxiety." notified and aware. 12.5 mcg fentanyl wasted with KAVITA longoria.} Route: IVP; Site: right antecubital; 23:13 Follow up: Response: No adverse reaction; Pain is unchanged, physician notified al5 21:42 Not Given (Patient Refused): fentanyl (pf)25 mcg IVP once al5 21:42 Drug: Ondansetron IVP 4 mg IVP once; over 2 minutes Route: IVP; Site: right antecubital;al5 23:13 Follow up: Response: No adverse reaction; Nausea is decreased al5 23:39 Drug: Metoprolol PO 50 mg PO once Route: PO; [facility] 12/29 00:11 Follow up: Response: No adverse reaction; heart rate decreased al5 12/28 23:39 Drug: Aspirin PO Chewable Tablet 162 mg PO once Route: PO; [facility] 12/29 00:10 Follow up: Response: No adverse reaction [facility] 12/28 23:58 CANCELLED (Duplicate Order): Decadron - [id number] mg IVP once [facility] 12/29 00:04 Drug: Decadron - Dexamethasone IVP 8 mg IVP once Route: IVP; Site: right antecubital; al5 00:11 Follow up: Response: No adverse reaction; Medication administered at discharge. al5 00:10 Drug: Ketorolac IVP 30 mg IVP once Route: IVP; Site: right antecubital; al5 00:11 Follow up: Response: No adverse reaction; Medication administered at discharge. al5 Medication: 12/28 22:17 VIS not applicable for this client. al5 Intake: 23:16 IV: 1000ml; Total: 1000ml. al5 Outcome: 23:52 Discharge ordered by MD. davis 12/29 00:13 Discharged to home ambulatory, al5 Condition: good Discharge instructions given to patient, Instructed on discharge instructions, follow up and referral plans. medication usage, Demonstrated understanding of instructions, follow-up care, medications, Prescriptions given X 4, 00:22 Patient left the ED. al5 Signatures: Dispatcher [employer] EDMS Lon Anthony MD MD cha Ayala, Heidy RN RN ha1 Sully Oneill RN RN [id number] Aretha Watson 3 Ena Pitts RN RN al5
--- NOTE | 2023-12-29 23:53 | EDPHYS ---
Physician Documentation [facility] Name: Liss Ro Age: 68 yrs Sex: Female : 1955 Arrival Date: 12/29/2023 Time: 19:34 Bed 6 Private MD: AURELIA Physician Lon Anthony HPI: 12/28 20:47 This 68 yrs old Female presents to ER via Wheelchair with complaints of Back ryan Pain, Neck Pain, >24Hrs Old. 20:47 The patient presents with pain that is acute, that is chronic, with no known mechanism ryan of injury, and decreased range of motion. The symptoms are located in the left scapular area, right scapular area and thoracic area. Onset: The symptoms/episode began/occurred 3 day(s) ago. The pain does not radiate. Associated signs and symptoms: The patient has no apparent associated signs or symptoms. The problem was sustained from unknown cause. Modifying factors: The patient symptoms are alleviated by nothing, the patient symptoms are aggravated by any movement, bending, movement. Severity of symptoms: At their worst the symptoms were moderate, in the emergency department the symptoms are unchanged. The patient has experienced similar episodes in the past, a few times. Historical: - Allergies: 19:46 Bactrim; kc6 19:46 Codeine; kc6 19:46 Flagyl; kc6 19:46 Morphine; kc6 19:46 Sulfa (Sulfonamide Antibiotics); kc6 19:46 tramadol; kc6 - PMHx: 19:46 Anxiety; PTSD; Hypertension; Diabetes - IDDM; Positional Vertigo; Herniated disc; kc6 - PSHx: 19:46 section; Cholecystectomy; carpal tunnel; hysterectomy; kc6 - Immunization history:: Client reports having NOT received the Covid vaccine. Flu vaccine is not up to date. - Infectious Disease History:: Denies. - Social history:: Smoking status: Patient denies any tobacco usage or history of. - Family history:: not pertinent. ROS: 20:47 Constitutional: Negative for fever, chills, and weight loss, Eyes: Negative for injury, ryan pain, redness, and discharge, ENT: Negative for injury, pain, and discharge, Neck: Negative for injury, pain, and swelling, Respiratory: Negative for shortness of breath, cough, wheezing, and pleuritic chest pain, Abdomen/GI: Negative for abdominal pain, nausea, vomiting, diarrhea, and constipation, : Negative for injury, bleeding, discharge, and swelling, MS/Extremity: Negative for injury and deformity, Skin: Negative for injury, rash, and discoloration, Neuro: Negative for headache, weakness, numbness, tingling, and seizure, Psych: Negative for depression, anxiety, suicide ideation, homicidal ideation, and hallucinations, Allergy/Immunology: Negative for hives, rash, and allergies, Endocrine: Negative for neck swelling, polydipsia, polyuria, polyphagia, and marked weight changes, 20:47 Cardiovascular: Negative for chest pain, edema, orthopnea, palpitations, paroxysmal nocturnal dyspnea, 20:47 Back: Positive for decreased range of motion, pain at rest, pain with movement, of the left scapular area, right scapular area and thoracic area, Exam: 20:47 Constitutional: This is a well developed, well nourished patient who is awake, alert, ryan and in no acute distress. Head/Face: Normocephalic, atraumatic. Eyes: Pupils equal round and reactive to light, extra-ocular motions intact. Lids and lashes normal. Conjunctiva and sclera are non-icteric and not injected. Cornea within normal limits. Periorbital areas with no swelling, redness, or edema. ENT: Nares patent. No nasal discharge, no septal abnormalities noted. Tympanic membranes are normal and external auditory canals are clear. Oropharynx with no redness, swelling, or masses, exudates, or evidence of obstruction, uvula midline. Mucous membranes moist. Neck: Trachea midline, no thyromegaly or masses palpated, and no cervical lymphadenopathy. Supple, full range of motion without nuchal rigidity, or vertebral point tenderness. No Meningismus. Chest/axilla: Normal chest wall appearance and motion. Nontender with no deformity. No lesions are appreciated. Cardiovascular: Regular rate and rhythm with a normal S1 and S2. No gallops, murmurs, or rubs. Normal PMI, no JVD. No pulse deficits. Respiratory: Lungs have equal breath sounds bilaterally, clear to auscultation and percussion. No rales, rhonchi or wheezes noted. No increased work of breathing, no retractions or nasal flaring. Abdomen/GI: Soft, non-tender, with normal bowel sounds. No distension or tympany. No guarding or rebound. No evidence of tenderness throughout. Female : Normal external genitalia. Skin: Warm, dry with normal turgor. Normal color with no rashes, no lesions, and no evidence of cellulitis. MS/ Extremity: Pulses equal, no cyanosis. Neurovascular intact. Full, normal range of motion. Neuro: Awake and alert, GCS 15, oriented to person, place, time, and situation. Cranial nerves II-XII grossly intact. Motor strength 5/5 in all extremities. Sensory grossly intact. Cerebellar exam normal. Normal gait. Psych: Awake, alert, with orientation to person, place and time. Behavior, mood, and affect are within normal limits. 20:47 Back: pain, that is mild, ROM is painful, with rotation to the right, with rotation to the left, with flexion, with extension, normal spinal alignment noted, CVA tenderness, is absent, vertebral tenderness, is not appreciated, muscle spasm, is appreciated in the left scapular area, right scapular area, left subscapular area, right subscapular area, left mid back and right mid back, 22:35 ECG was reviewed by the Attending Physician. ryan 23:11 ECG was reviewed by the Attending Physician. ryan 23:14 Musculoskeletal/extremity: DVT Exam: No signs of deep vein thrombosis. no pain, no ryan swelling, no tenderness, negative Homans' sign noted on exam, no appreciated bluish discoloration, no erythema, no increased warmth, Vital Signs: 19:44 BP 136 / 69; Pulse 123; Resp 19 S; Temp 98.6(O); Pulse Ox 98% on R/A; Weight 74.84 kg kc6 (R); Height 4 ft. 11 in. (R); Pain 7/10; 20:00 BP 141 / 69; Pulse 108; Resp 18; Pulse Ox 100% on R/A; al5 20:25 BP 151 / 76 RA; al5 20:25 BP 141 / 69 LA; al5 21:00 BP 143 / 63; Pulse 108; Resp 18; Pulse Ox 100% on R/A; al5 21:30 BP 134 / 64; Pulse 98; Resp 17; Pulse Ox 97% on R/A; al5 22:00 BP 137 / 62; Pulse 92; Resp 19; Pulse Ox 100% on R/A; al5 23:00 BP 117 / 53; Pulse 98; Resp 17; Pulse Ox 100% on R/A; al5 23:30 BP 136 / 61; Pulse 103; Resp 20; Pulse Ox 99% on R/A; al5 12/29 00:00 BP 134 / 68; Pulse 98; Resp 17; Pulse Ox 100% on R/A; al5 12/28 19:44 Body Mass Index 33.33 (74.84 kg, 149.86 cm) [facility] 12/28 19:44 Pain Scale: Adult [facility] MDM: 12/28 20:07 Patient medically screened. [facility] 20:50 Differential diagnosis: chronic back pain, Fatigue Fracture Obesity ruptured disc, ryan Scoliosis sprain, Ureterolithiasis vertebral fracture. Data reviewed: vital signs, nurses notes, lab test result(s), EKG, radiologic studies, plain films. Consideration of Admission/Observation Escalation of care including admission/observation considered. I considered the following discharge prescriptions or medication management in the emergency department Medications were administered in the Emergency Department. See MAR. Test considered but Not performed: CT: no ct dissection. Care significantly affected by the following chronic conditions: Diabetes, Hypertension, ptsd, anxiety, bpv, disc issues. 12/28 20:17 Order name: Basic Metabolic Panel; Complete Time: 22:31 [facility] 12/28 20:17 Order name: CBC with Diff; Complete Time: 21:33 [facility] 12/28 20:17 Order name: LFT's; Complete Time: 22:31 [facility] 12/28 20:17 Order name: Magnesium; Complete Time: 22:31 [facility] 12/28 20:17 Order name: NT PRO-BNP; Complete Time: 22:31 [facility] 12/28 20:17 Order name: PT-INR; Complete Time: 21:33 [facility] 12/28 20:17 Order name: Troponin HS; Complete Time: 22:31 [facility] 12/28 20:17 Order name: Lipase; Complete Time: 22:31 [facility] 12/28 20:17 Order name: Urinalysis w/ reflexes [facility] 12/28 22:34 Order name: Troponin HS: 1045 pm; Complete Time: 23:51 [facility] 12/28 20:17 Order name: Chest Pa And Lat (2 Views) XRAY [facility] 12/28 22:46 Order name: CT Aorta for Dissection [facility] 12/28 20:17 Order name: EKG; Complete Time: 20:17 [facility] 12/28 22:34 Order name: EKG; Complete Time: 22:34 [facility] 12/28 20:17 Order name: Cardiac monitoring; Complete Time: 20: [facility] 12/28 20:17 Order name: EKG - Nurse/Tech; Complete Time: 20:18 [facility] 12/28 20:17 Order name: IV Saline Lock; Complete Time: 20:33 [facility] 12/28 20:17 Order name: Labs collected and sent; Complete Time: : [facility] 12/28 20:17 Order name: O2 Per Protocol; Complete Time: 20:18 [facility] 12/28 20:17 Order name: O2 Sat Monitoring; Complete Time: 20: [facility] 12/28 20:17 Order name: Bilateral blood pressure; Complete Time: 20: [facility] 12/28 22:34 Order name: EKG - Nurse/Tech; Complete Time: 23:13 [facility] EC:35 Rate is 126 beats/min. Rhythm is regular. QRS [employer] is Normal. [place] interval is normal. [facility] QRS interval is normal. QT interval is normal. No Q waves. T waves are Normal. No ST changes noted. Clinical impression: Sinus tachycardia and No evidence of ischemia. 23:11 Rate is 106 beats/min. Rhythm is regular. QRS [employer] is Normal. [place] interval is normal. No ryan Q waves. T waves are Normal. Clinical impression: Sinus tachycardia and No evidence of ischemia. Interpreted by me. Reviewed by me. Administered Medications: 21:42 Drug: NS 0.9% IV 1000 ml IV at 1 bolus Per protocol; 1000 mL bolus Route: IV; Rate: 1 al5 bolus; Site: right antecubital; 23:16 Follow up: Response: No adverse reaction; IV Status: Completed infusion; IV Intake: al5 1000ml 21:42 Drug: fentaNYL (PF) IVP 25 mcg IVP once {Note: patient only wanted half of the al5 medication because she "does not know what it will do to [her] and [she] has anxiety." notified and aware. 12.5 mcg fentanyl wasted with KAVITA longoria.} Route: IVP; Site: right antecubital; 23:13 Follow up: Response: No adverse reaction; Pain is unchanged, physician notified al5 21:42 Not Given (Patient Refused): fentanyl (pf)25 mcg IVP once al5 21:42 Drug: Ondansetron IVP 4 mg IVP once; over 2 minutes Route: IVP; Site: right antecubital;al5 23:13 Follow up: Response: No adverse reaction; Nausea is decreased al5 23:39 Drug: Metoprolol PO 50 mg PO once Route: PO; [facility] 12/29 00:11 Follow up: Response: No adverse reaction; heart rate decreased al5 12/28 23:39 Drug: Aspirin PO Chewable Tablet 162 mg PO once Route: PO; [facility] 12/29 00:10 Follow up: Response: No adverse reaction al5 12/28 23:58 CANCELLED (Duplicate Order): Decadron - [id number] mg IVP once [facility] 12/29 00:04 Drug: Decadron - Dexamethasone IVP 8 mg IVP once Route: IVP; Site: right antecubital; al5 00:11 Follow up: Response: No adverse reaction; Medication administered at discharge. al5 00:10 Drug: Ketorolac IVP 30 mg IVP once Route: IVP; Site: right antecubital; al5 00:11 Follow up: Response: No adverse reaction; Medication administered at discharge. al5 Disposition Summary: 12/29/23 23:52 Discharge Ordered Notes: Location: Home ryan Problem: new ryan Symptoms: have improved ryan Condition: Stable ryan Diagnosis - Unspecified symptoms and signs involving the musculoskeletal system ryan - Strain of muscle and tendon of back wall of thorax, initial encounter ryan - Tachycardia, unspecified ryan Followup: ryan - With: Private Physician - When: 2 - 3 days - Reason: Recheck today's complaints, Continuance of care, Re-evaluation by your physician Followup: ryan - With: Tariq Quarles MD - When: 2 - 3 days - Reason: Recheck today's complaints, Re-evaluation by your physician Discharge Instructions: - Discharge Summary Sheet ryan - Muscle Strain ryan - Musculoskeletal Pain ryan - Muscle Strain, [id number] ryan - Aspirin and Your Heart ryan - Sinus Tachycardia ryan Forms: - Medication Reconciliation Form ryan - Antibiotic Education ryan - Prescription Opioid Use ryan - Patient Portal Instructions ryan - Leadership Thank You Letter ryan Prescriptions: - diclofenac sodium 25 mg Oral tablet, delayed release (enteric coated) - take 1 tablet ORAL route 3 times per day; 21 tablet; Refills: 0, Product ryan Selection Permitted - methocarbamol 500 mg Oral tablet - take 1 tablet ORAL route every 8 hours; 21 tablet; Refills: 0, Product ryan Selection Permitted - Toprol XL 25 mg Oral Tablet - take 1 tablet ORAL route once daily; 20 tablet; Refills: 0, Product Selection ryan Permitted - Medrol (Herminio) 4 mg Oral Tablets, Dose Pack - take 1 tablet ORAL route as directed - follow package instructions; 1 packet; [facility] Refills: 0, Product Selection Permitted Signatures: Dispatcher [employer] EDMS Lon Anthony MD MD cha Ayala, Heidy, RN RN ha1 Sully Oneill RN RN kc6 Ena Pitts RN RN al5 Corrections: (The following items were deleted from the chart) 12/28 20:18 20:17 BASIC METABOLIC PANEL+C.LAB.BRZ ordered. EDMS EDMS 20:18 20:17 CBC+H.LAB.BRZ ordered. EDMS EDMS 20:18 20:17 HEPATIC FUNCTION+C.LAB.BRZ ordered. EDMS EDMS 20:18 20:17 MAGNESIUM+C.LAB.BRZ ordered. EDMS EDMS 20:18 20:17 PROBNP+C.LAB.BRZ ordered. EDMS EDMS 20:18 20:17 PROTIME (+INR)+COAG.LAB.BRZ ordered. EDMS EDMS 20:18 20:17 Troponin High Sensitivity+C.LAB.BRZ ordered. EDMS EDMS 20:18 20:17 LIPASE+C.LAB.BRZ ordered. EDMS EDMS 20:18 20:17 Urinalysis+U.LAB.BRZ ordered. EDMS EDMS 23:58 23:55 Decadron - Dexamethasone IVP 10 mg IVP once ordered. ryan davis
[2023-12-29 23:54] LABS: Sqamous Epithelial <5 /HPF (None Seen); Urine Bacteria None Seen /HPF (<20); Urine Bilirubin NEGATIVE (Negative); Urine Blood Negative (Negative); Urine Clarity Clear (Clear); Urine Color Colorless (Yellow); Urine Culture Reflex Order NOT NEEDED; Urine Glucose 3+ (Negative); Urine Ketones NEGATIVE (Negative); Urine Microscopic Reflex YN ORDER UMIC; Urine Nitrite NEGATIVE (Negative); Urine Protein NEGATIVE (Negative); Urine RBC None Seen /HPF (None Seen); Urine Urobilinogen Normal (Normal); Urine WBC None Seen /HPF (<5); Urine pH 5.5 (5.0-7.0)
[2023-12-30] MEDS ORDERED: dexAMETHasone 10 MG/ML VIAL ONE
[2023-12-30] MEDS ORDERED: KETOROLAC 30 MG/ML INJ ONE
[2023-12-30 01:27] VITALS: TEMP 98.6
[2023-12-30 01:41] VITALS: BP 134/68; O2SAT 100
--- NOTE | 2023-12-30 12:09 | RAD REPORT ---
EXAM DESCRIPTION: CT - Angio Aorta For Dissection - 12/30/2023 6:24 am CLINICAL HISTORY: The patient is 68 years old and is Female; DISSECTION TECHNIQUE: Axial computed tomographic angiography images of the chest, abdomen and pelvis with intra venous contrast. Sagittal and coronal reformatted images were created and reviewed. This CT exam was performed using one or more of the following dose reduction techniques: automated exposure cont rol, adjustment of the mA and/or kV according to patient size, and/or use of iterative reconstruction technique. MIP reconstructed images were created and reviewed. COMPARISON: CT December 05, 2019. FINDINGS: VASCULATURE: AORTA: No acute findings. No aortic aneurysm. No dissection. PULMONARY ARTERIES: Unremarkable as visualized. No pulmonary embolism is identified. GREAT VESSELS OF AORTIC ARCH: No acute findings. No dissection. No arterial occlusion or sign ificant stenosis. CELIAC TRUNK AND MESENTERIC ARTERIES: No acute findings. No occlusion or significant stenosis. RENAL ARTERIES: No acute findings. No occlusion or significant stenosis. ILIAC ARTERIES: No acute findings. No occlusion or significant stenosis. CHEST: LUNGS: Unremarkable. No mass. No consolidation. PLEURAL SPACE: Unremarkable. No significant effusion. No pneumothorax. HEART: Unremarkable. No cardiomegaly. No significant pericardial effusion. ABDOMEN: LIVER: Unremarkable. No mass. GALLBLADDER AND BILE DUCTS: The gallbladder surgically absent. Mild biliary dilatation is noted with the common bile duct measuring up to 1.2 cm, similar to prior exam and likely postsurgical. PANCREAS: The pancreas is atrophic. No ductal dilation. SPLEEN: Unremarkable. No splenomegaly. ADRENALS: Unremarkable. No mass. KIDNEYS AND URETERS: Unremarkable. No hydronephrosis. No solid mass. STOMACH AND BOWEL: The stomach is minimally filled with fluid and air. The small bowel is decompr essed. Stool is present throughout the colon. There is no mucosal thickening or evidence of obstructi on. PELVIS: APPENDIX: The appendix is normal in caliber without surrounding inflammation. BLADDER: Bladder is well distended. REPRODUCTIVE: The patient is status post hysterectomy. CHEST, ABDOMEN and PELVIS: INTRAPERITONEAL SPACE: Unremarkable. No significant fluid collection. No free air. BONES/JOINTS: Multilevel degenerative change of the spine is present. Bilateral pars defects ar e present at L5 with grade 1 anterolisthesis of L5 on S1. There is no acute fracture. No dislocatio n. SOFT TISSUES: Unremarkable. LYMPH NODES: Unremarkable. No enlarged lymph nodes. IMPRESSION: 1. No evidence of aortic aneurysm or dissection. 2. No acute findings on this CTA of the chest, abdomen and pelvis to explain the patient's symptoms . Electronically signed by: Faby Wayne MD 12/29/2023 11:46 PM CDT RP Due to temporary technical issues with the PACS/Fluency reporting system, reports are being signed by the in house radiologist without review as a courtesy to ensure prompt reporting. The interpreting r adiologist is fully responsible for the content of the report.
--- NOTE | 2023-12-31 12:55 | EKG ---
Test Date: 2023-12-29 Test Time: 23:04:28 Monogram Machine Operator: [place] MEASUREMENT RESULTS: Intervals: Rate: 106 MN: 154 QRSD: 122 QT: 366 QTc: 486 [place]: P: 49 MN: 154 QRS: 258 T: 18 INTERPRETIVE STATEMENTS: Sinus tachycardia Right bundle branch block Abnormal ECG Compared to ECG 12/29/2023 19:51:45 No significant changes Electronically Signed On 12-31-23 12:54:14 CDT by Hamzah Billings
--- NOTE | 2023-12-31 12:56 | EKG ---
Test Date: 2023-12-29 Test Time: 19:51:45 Lithographic Printing Machinist: BHARTI MEASUREMENT RESULTS: Intervals: Rate: 126 PA: 146 QRSD: 114 QT: 322 QTc: 466 [place]: P: 56 PA: 146 QRS: 235 T: 22 INTERPRETIVE STATEMENTS: Sinus tachycardia Right bundle branch block Abnormal ECG Compared to ECG 12/07/2023 16:11:02 Sinus rhythm no longer present Electronically Signed On 12-31-23 12:55:02 CDT by Hamzah Billings
== END 2023-12-30 00:22 | disposition home or self-care (01) ==
LOC: ER 19:34
DX: S29.012A Strain of muscle and tendon of back wall of thorax, initial encounter (principal); R00.0 Tachycardia, unspecified; E11.9 Type 2 diabetes mellitus without complications; I10 Essential (primary) hypertension
CPT/HCPCS: 96361; 93005 ×2; 85025; 81001; 80048; 36415; 83735; 85610; 80076; 84484 ×2; 83690; 83880; 71275; 74175; 71046; 96375; 96374; 99285; Q9967; J3010; J1100; J2405; J7030

== ENCOUNTER 2024-12-28 00:45 | Emergency (ER) | payer OTHER ==
--- OUTSIDE RECORDS SUMMARY | 2024-12-28 01:01 | XMS REPORT | Continuity of Care Document ---
Author Name Unknown Address [address] [facility] [address] [place] [address] [facility] Address [address] [facility] 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 Role Phone Anastasiya BANKS, Rajni Primary Care Physician + [phone] MAGNUS MARTIN Attending Clinician UnavailRAJNI Bueno Attending Clinician Unavailable ROYCE HERNÁNDEZ Attending Clinician Unavailab Royce Wong MD Attending Clinician [phone] Rajni Momin MD Attending Clinician [phone] Magnus Martin MD Attending Clinician [phone], [facility] Attending Clinician Unavailable Doctor Unassigned, [place] Attending Clinician U zoe Sanabria MD, [facility] Attending Clinician + [phone] Ramiro Heller MD Attending Clinician + [phone] Farnaz BANKS, Chio Attending Clinician Unavail jose rafael Taylor MD, Stef Attending Clinician UnavailMariam Salguero Attending Clinician Miac Ruiz Attending Clinician Castillo Blair MD Attending Clinician [phone] CASTILLO GUERRA Attending Clinician Unavailable Royce Hernández MD Attending Clinician [phone] Anastasiya BANKS, Rajni Attending Clinician [phone], [facility] Attending Clinician Unavailable Bartholomew MA, Audrey A Attending Clinician Unavailab mahsa Miranda MD, Osiris Walker Attending Clinician [phone] Veronica BANKS, Magnus York Attending Clinician [phone] Doctor Unassigned, [place] Attending Clinician U SARITA Dubose Attending Clinician Unavailable Bernardo MACHINE GRINDER, Jack Attending Clinician [phone] Alan [facility], Ava Juarez Attending Clinician Unava ilable Pob, [facility] Main Attending Clinician UnavailLISS Rubio Attending Clinician Unavaila ble Lab, Ang - Db Attending Clinician Unavailable JAMES HARMON Attending Clinician Unavailable Charlie BANKS, Castillo Attending Clinician [phone] Hernesto [facility], Alexandria Candelario Attending Clinician [phone] OSIRIS MIRANDA Attending Clinician Unava ilRain Buck Attending Clinician + [phone] RAIN CALLE Attending Clinician Unavailab mahsa Lucio MD, Rajni [place] Attending Clinician [phone] Kaveh Nolan RN Attending Clinician UnavailKeshawn Blackmon Attending Clinician Unavailable Samuel BANKS, Kee Attending Clinician [phone] KEE EDMONDS Attending Clinician Unavailable MARCIAL NORMAN Attending Clinician Unavail able MARCIAL NORMAN Attending Clinician Unavail able Rolando BANKS, Marcial Oquendo Attending Clinician [phone] DIANNE CHOPRA Attending Clinician Unavailab mahsa Vu MD, [facility] Attending Clinician + [phone] [facility] Attending Clinician UnavailBEATRICE Womack Attending Clinician Mame Chopra MD, Dianne Puentes Attending Clinician [phone] Nurse, Alfred Endo/Diab Attending Clinician Unavail able JACK CHANG Attending Clinician Unavailab YULI Rueda Attending Clinician UnavailJUSTYN Elias Attending Clinician Unavailabl PENELOPE Sosa Attending Clinician Unavailable SANDEEP MAGANA Attending Clinician Unavail able STEFFEN AKERS Attending Clinician Unavail able STEFFEN AKERS Attending Clinician Unavail able ELISE CARLTON Attending Clinician Unavaila ELISE Beck Attending Clinician Unavaila NOÉ Woods Attending Clinician Unavaila HONG Shields Attending Clinician Unavailable BOO LOZOYA Attending Clinician Unavailable RAJNI MOMIN Admitting Clinician Unavailable RAIN CALLE Admitting Clinician Unavailab MITCHELL Collazo Admitting Clinician Unavaila OSIRIS Sawant Admitting Clinician BOO Schmidt Admitting Clinician Unavailable JUSTYN PHILLIPS Admitting Clinician Unavailcamille e Payers Payer Name Policy Type Policy Number Effective Date Expirati on Date Source MEDICARE PART A \\T\\ B [id number] 2006 00:00:00 [employer] [id number] 2022 00:00:00 2025 00:00:00 Problems Condition Name Condition Details Condition Category Status Onset Date Resolution Date Last Treatment Date Treating Clinician Comments Source At risk for falls At risk for falls Disease Active 4-16 00:00: 00 [facility] Illness anxiety disorder Illness anxiety disorder Disease Active 1-08 00:00: 00 [facility] 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 type 2 diabetes mellitus 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 type 2 diabetes mellitus Disease Active 1-08 00:00: 00 [facility] Tachycardi a Tachycardi a Disease Active 8-28 00:00: 00 [facility] Radiculopa thy of lumbar region Radiculopa thy of lumbar region Disease Active 4-07 00:00: 00 [facility] Depression , major, recurrent, moderate Depression , major, recurrent, moderate Disease Active 3-27 00:00: 00 [facility] Depression , major, recurrent, moderate Depression , major, recurrent, moderate Disease Active 3-27 00:00: 00 [facility] Spondylosi s without myelopathy or radiculopa thy, cervical region Spondylosi s without myelopathy or radiculopa thy, cervical region Disease Active 05-04 00:00: 00 [facility] Spondyloli sthesis, lumbar region Spondyloli sthesis, lumbar region Disease Active 05-04 00:00: 00 [facility] Spinal stenosis, lumbar region, without neurogenic claudicati on Spinal stenosis, lumbar region, without neurogenic claudicati on Disease Active 05-04 00:00: 00 [facility] Age-relate d nuclear cataract, bilateral Age-relate d nuclear cataract, bilateral Disease Active 05-04 00:00: 00 [facility] Essential (primary) hypertensi on Essential (primary) hypertensi on Disease Active 05-04 00:00: 00 [facility] Gastro-eso phageal reflux disease without esophagiti s Gastro-eso phageal reflux disease without esophagiti s Disease Active 05-04 00:00: 00 [facility] Major depressive disorder, recurrent, moderate Major depressive disorder, recurrent, moderate Disease Active 05-04 00:00: 00 [facility] Mixed hyperlipid emia Mixed hyperlipid emia Disease Active 05-04 00:00: 00 [facility] Major depressive disorder, recurrent, moderate Major depressive disorder, recurrent, moderate Disease Active 05-04 00:00: 00 [facility] Social exclusion and rejection Social exclusion and rejection Disease Active 05-04 00:00: 00 [facility] PTSD (post-trau matic stress disorder) PTSD (post-trau matic stress disorder) Disease Active 05-04 00:00: 00 [facility] Occlusion and stenosis of bilateral carotid arteries Occlusion and stenosis of bilateral carotid arteries Disease Active 05-04 00:00: 00 [facility] Vertigo, benign paroxysmal , bilateral Vertigo, benign paroxysmal , bilateral Disease Active 1-01 00:00: 00 [facility] Arthritis, multiple joint involvemen t Arthritis, multiple joint involvemen t Disease Active 01-13 00:00: 00 [facility] 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 Disease Active 01-13 00:00: 00 [facility] Lumbar radiculopa thy Lumbar radiculopa thy Disease Active - 00:00: 00 [facility] Multilevel degenerati ve disc disease Multilevel degenerati ve disc disease Disease Active 09-03 00:00: 00 [facility] 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 Disease Active 09-03 00:00: 00 [facility] Spinal stenosis of lumbar region without neurogenic claudicati on Spinal stenosis of lumbar region without neurogenic claudicati on Disease Active - 00:00: 00 [facility] Chronic pain syndrome Chronic pain syndrome Disease Active - 00:00: 00 [facility] Anxiety and depression Anxiety and depression Disease Active 09-03 00:00: 00 [facility] Chest pain, unspecifie d type Chest pain, unspecifie d type Disease Active - 00:00: 00 [facility] Carotid artery plaque, bilateral Carotid artery plaque, bilateral Disease Active 2021-05 00:00: 00 [facility] Cerebral aneurysm without rupture Cerebral aneurysm without rupture Disease Active 2021-05 00:00: 00 [facility] Arterioven ous abnormalit y of orbit Arterioven ous abnormalit y of orbit Disease Active 01-17 00:00: 00 [facility] Chronic constipati on Chronic constipati on Disease Active 01-17 00:00: 00 [facility] 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 Disease Active 2022-0 9-16 00:00: 00 [facility] Hospital discharge follow-up Hospital discharge follow-up Disease Active 01-17 00:00: 00 [facility] Obesity (BMI 30-39.9) Obesity (BMI 30-39.9) Disease Active 08-29 00:00: 00 [facility] DAVIS (obstructi ve sleep apnea) DAVIS (obstructi ve sleep apnea) Disease Active 08-21 00:00: 00 [facility] Vulvar lesion Vulvar lesion Disease Active 05-30 00:00: 00 [facility] Lichen sclerosus Lichen sclerosus Disease Active 05-22 00:00: 00 [facility] Postmenopa usal status Postmenopa usal status Disease Active 05-22 00:00: 00 [facility] Postmenopa usal atrophic vaginitis Postmenopa usal atrophic vaginitis Disease Active 05-22 00:00: 00 [facility] H/O: hysterecto my H/O: hysterecto my Disease Active 05-22 00:00: 00 [facility] Mixed incontinen ce Mixed incontinen ce Disease Active 05-22 00:00: 00 [facility] Obesity Obesity Disease Active 01-16 00:00: 00 Overview: Formattin g of this note might be different from the original. 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 Utility [facility] Elevated alkaline phosphatas e level Elevated alkaline phosphatas e level Disease Active 09-08 00:00: 00 [facility] Dizziness Dizziness Disease Active 2010-05 00:00: 00 [facility] Vertigo of central origin Vertigo of central origin Disease Active 2010-05 00:00: 00 [facility] Gait disturbanc e Gait disturbanc e Disease Active 2010-05 00:00: 00 [facility] BPPV (benign paroxysmal positional vertigo) BPPV (benign paroxysmal positional vertigo) Disease Active 2010-05 00:00: 00 [facility] Vitamin D deficiency Vitamin D deficiency Disease Active 2009-05 0 00:00: 00 [facility] HLD (hyperlipi demia) HLD (hyperlipi demia) Disease Active 05-09 00:00: 00 Overview: Formattin g of this note might be different from the original. 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 Lower back [facility] Anxiety Anxiety Disease Active 12-08 00:00: 00 Overview: Formattin g of this note might be different from the original. 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 Lower back [facility] Essential hypertensi on, benign Essential hypertensi on, benign Disease Active 12-08 00:00: 00 [facility] Pain in joint, lower leg Pain in joint, lower leg Disease Active 12-08 00:00: 00 Overview: Formattin g of this note might be different from the original. Knee problem [facility] Diabetes mellitus type 2, uncontroll ed, without complicati ons Diabetes mellitus type 2, uncontroll ed, without complicati ons Disease Active 12-08 00:00: 00 Overview: Formattin g of this note might be different from the original. 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 Utility [facility] Type 2 diabetes mellitus, with long-term current use of insulin Type 2 diabetes mellitus, with long-term current use of insulin Disease Active 12-08 00:00: 00 [facility] Arthritis Arthritis Disease Active [facility] Morbid obesity with body mass index of 40.0-49.9 Morbid obesity with body mass index of 40.0-49.9 Disease Resolve d 07-18 00:00: 00 2020-02-18 00:00:00 2020-02-18 21:19:29 [facility] Morbid obesity with body mass index of 50 or higher Morbid obesity with body mass index of 50 or higher Disease Resolve d 07-18 00:00: 00 2020-02-18 00:00:00 2020-02-18 21:19:30 [facility] Bacterial vaginosis Bacterial vaginosis Disease Resolve d 05-23 00:00: 00 2020-02-18 00:00:00 2020-02-18 21:19:12 [facility] Chest pain Chest pain Disease Resolve d 11-09 00:00: 00 2020-02-18 00:00:00 2020-02-18 21:19:15 [facility] Inflamed seborrheic keratosis Inflamed seborrheic keratosis Disease Resolve d 12-08 00:00: 00 2020-02-18 00:00:00 2020-02-18 21:19:23 [facility] Dizziness and giddiness Dizziness and giddiness Disease Resolve d 12-08 00:00: 00 2020-02-18 00:00:00 2020-02-18 21:19:10 [facility] Vaginal lesion Vaginal lesion Disease Resolve d 05-22 00:00: 00 2015-05-30 00:00:00 2015-05-30 10:35:08 [facility] Allergies, Adverse Reactions, Alerts Allergy Name Allergy Type Status Severity Reaction(s) Onset Date Inactive Date Treating Clinician Comments Source AMOXICIL ALONDRA DRUG INGREDI Active Med Unknown-Cmnt 11-29 00:00: 00 [facility] Amoxicil alondra Propensi ty to adverse reaction s Active Unknown - See comments 11-29 00:00: 00 Blurry vision [facility] MORPHINE DRUG INGREDI Active Anxiety 12-06 00:00: 00 [facility] Morphine Propensi ty to adverse reaction s Active Anxiety 12-06 00:00: 00 [facility] TRAMADOL DRUG INGREDI Active Anxiety 06-24 00:00: 00 [facility] Tramadol Propensi ty to adverse reaction s Active Anxiety 06-24 00:00: 00 Pt felt "weird" [facility] METRONID AZOLE DRUG INGREDI Active Other-Cmnt 05-24 00:00: 00 [facility] Metronid azole Propensi ty to adverse reaction s Active Other - See comments 05-24 00:00: 00 Throat swelling [facility] PROMETHA ZINE HCL DRUG INGREDI Active N/V 05-05 00:00: 00 [facility] Prometha zine Hcl Drug Intolera nce Active Nausea and/or Vomiting 05-05 00:00: 00 [facility] SULFAMET HOXAZOLE -TRIMETH OPRIM DRUG Active Unknown-Cmnt 12-08 00:00: 00 [facility] CODEINE DRUG INGREDI Active Unknown-Cmnt 12-08 00:00: 00 [facility] Sulfamet hoxazole -Trimeth oprim Propensi ty to adverse reaction s Active Unknown - See comments 12-08 00:00: 00 [facility] Codeine Propensi ty to adverse reaction s Active Unknown - See comments 12-08 00:00: 00 Patient states it makes her feel worse, pain increases [facility] Social History Social Habit Start Date Stop Date Quantity Comments Source ASSERTION Not [facility] Alcoholic beverage intake 2024-11-18 00:00:00 2024-11-18 00:00:00 0 /d [facility] History of Social function 2024-08-17 00:00:00 2024-08-17 00:00:00 [facility] Alcohol intake 2023-07-30 00:00:00 2023-07-30 00:00:00 0 /d [facility] Exposure to SARS-CoV-2 (event) 2022-08-23 00:00:00 2022-09-02 10:27:00 Not sure [facility] Tobacco use and exposure 2022-01-30 00:00:00 2022-01-30 00:00:00 Smokeless tobacco non-user [facility] Sex assigned at 1955 00:00:00 1955 00:00:00 [facility] Smoking Status Start Date Stop Date Source Never smoked tobacco [facility] Medications Ordered Medication Name Filled Medication Name Start Date Stop Date Current Medication? Ordering Clinician Indication Dosage Frequency Signature (SIG) Comments Components Source bevacizumab (AVASTIN) injection 1.25 mg 12-15 16:32: 00 12-15 16:32 :00 No [id number] 101 1.25mg 1.25 mg, Intravitre al, ONCE PRN, 1 dose, Starting on Mitzi 12/15/24 at 1132, Until Mitzi 12/15/24 at 1132, Routine [facility] methocarbam oL 500 mg tablet 11-30 00:00: 00 Yes [id number] 500mg Take 1 tablet by mouth 4 times daily. [facility] BUSPIRONE 15 mg tablet 11-28 00:00: 00 Yes [id number] 15mg TAKE 1 TABLET BY MOUTH EVERY MORNING AND EVENING [facility] Insulin [place], Disposable, (BD MAMI 2ND GEN PEN NEEDLE) 32 gauge x 5/32" Ndle 11-18 00:00: 00 Yes [id number] Use as directed [facility] blood sugar diagnostic (ACCU-CHEK GUIDE TEST STRIPS) strip 11-18 00:00: 00 Yes [id number] USE TO CHECK BLOOD GLUCOSE 3 TIMES DAILY. DX E11.69 [facility] Lancets (ACCU-CHEK SOFTCLIX LANCETS) Misc 18 00:00: 00 Yes [id number] USE 1 TO CHECK GLUCOSE 3 TIMES DAILY [facility] meclizine 25 mg tablet 15 00:00: 00 Yes [id number] 25mg TAKE 1 TABLET BY MOUTH THREE TIMES DAILY NEEDED FOR DIZZINESS [facility] FAMOTIDINE 40 mg tablet 10-24 00:00: 00 Yes [id number] TAKE 1 TABLET BY MOUTH ONCE DAILY BEFORE BREAKFAST [facility] Insulin Glargine (LANTUS SOLOSTAR U-100 INSULIN) 100 unit/mL (3 mL) injection 10-21 00:00: 00 Yes [id number] INJECT 14 UNITS SUBCUTANEO USLY ONCE DAILY IN THE MORNING [facility] MECLIZINE 25 mg tablet 04 00:00: 00 11-15 00:00 :00 No [id number] 25mg TAKE 1 TABLET BY MOUTH THREE TIMES DAILY NEEDED FOR DIZZINESS [facility] BD MAMI 2ND GEN PEN NEEDLE 32 gauge x 5/32" Ndle 10-03 00:00: 00 11-18 00:00 :00 No [id number] USE DIRECTED 5 TIMES A DAY [facility] lisinopriL 20 mg tablet 16 00:00: 00 Yes [id number] 20mg Take 1 tablet by mouth in the morning. [facility] insulin lispro (HUMALOG KWIKPEN INSULIN) 100 unit/mL pen injector 16 00:00: 00 Yes [id number] INJECT UP TO 18 UNITS SUBCUTANEO USLY THREE TIMES DAILY ACCORDING TO SLIDING SCALE DIRECTED [facility] Insulin Glargine (LANTUS SOLOSTAR U-100 INSULIN) 100 unit/mL (3 mL) injection -16 00:00: 00 Yes [id number] INJECT 16 UNITS UNDER THE SKIN IN THE MORNING-mu st be the pen [facility] gabapentin 100 mg capsule 16 00:00: 00 Yes [id number] TAKE 1 CAPSULE BY MOUTH TWICE DAILY NEEDED FOR PAIN [facility] DULoxetine 30 mg capsule 16 00:00: 00 Yes [id number] 30mg Take 1 capsule by mouth in the morning. [facility] atorvastati n 40 mg tablet 16 00:00: 00 Yes [id number] 40mg Take 1 tablet by mouth at bedtime. [facility] amLODIPine 10 mg tablet 16 00:00: 00 Yes [id number] 10mg Take 1 tablet by mouth in the morning. [facility] busPIRone 15 mg tablet 16 00:00: 00 11-28 00:00 :00 No [id number] 15mg Take 1 tablet by mouth every morning and evening. [facility] meclizine 25 mg tablet 16 00:00: 00 10-05 00:00 :00 No [id number] 25mg Take 1 tablet by mouth 3 (three) times daily as needed for Dizziness. [facility] gabapentin 100 mg capsule 28 00:00: 00 08-17 00:00 :00 No [id number] TAKE 1 CAPSULE BY MOUTH TWICE DAILY NEEDED FOR PAIN [facility] FAMOTIDINE 40 mg tablet 3-24 00:00: 00 Yes [id number] TAKE 1 TABLET BY MOUTH ONCE DAILY BEFORE BREAKFAST [facility] omega-3-dha -epa-dpa-fi sh oil 430-130-650 mg CpDR 2-09 00:00: 00 08-17 00:00 :00 No [id number] 1{capsu le} Take 1 capsule by mouth in the morning. [facility] Lancets (ACCU-CHEK SOFTCLIX LANCETS) Misc -16 00:00: 00 11-18 00:00 :00 No [id number] USE 1 TO CHECK GLUCOSE 3 TIMES DAILY [facility] ergocalcife rol, vitamin d2, 1,250 mcg (50,000 unit) capsule 05-11 00:00: 00 Yes [id number] 10140S Take 1 capsule by mouth weekly. [facility] dicyclomine 10 mg capsule 05-11 00:00: 00 Yes [id number] 10mg Take 1 capsule by mouth 2 (two) times daily as needed for Other (abdominal pain). Take 10 mg by mouth 2 (two) times daily as needed. [facility] azelastine 137 mcg (0.1 %) nasal spray 05-11 00:00: 00 Yes [id number] 1{spray } Use 1 [place] in each nostril in the morning and 1 [place] in the evening. Use in each nostril as directed [facility] fluticasone propionate 50 mcg/actuati on nasal spray 05-11 00:00: 00 Yes [id number] 1{spray } Use 1 [place] in each nostril in the morning. [facility] methocarbam oL 500 mg tablet 05-11 00:00: 00 11-30 00:00 :00 No [id number] 500mg Take 1 tablet by mouth 4 (four) times daily. [facility] lisinopriL 20 mg tablet 05-11 00:00: 00 08-17 00:00 :00 No [id number] 20mg Take 1 tablet by mouth in the morning. [facility] insulin lispro (HUMALOG KWIKPEN INSULIN) 100 unit/mL pen injector 05-11 00:00: 00 08-17 00:00 :00 No [id number] INJECT UP TO 18 UNITS SUBCUTANEO USLY THREE TIMES DAILY ACCORDING TO SLIDING SCALE DIRECTED [facility] DULoxetine 30 mg capsule 05-11 00:00: 00 08-17 00:00 :00 No [id number] 30mg Take 1 capsule by mouth in the morning. [facility] busPIRone 15 mg tablet 05-11 00:00: 00 08-17 00:00 :00 No [id number] 15mg Take 1 tablet by mouth every morning and evening. [facility] atorvastati n 40 mg tablet 05-11 00:00: 00 08-17 00:00 :00 No [id number] 40mg Take 1 tablet by mouth at bedtime. [facility] amLODIPine 10 mg tablet - 00:00: 00 08-17 00:00 :00 No [id number] 10mg Take 1 tablet by mouth in the morning. [facility] Insulin Glargine (LANTUS SOLOSTAR U-100 INSULIN) 100 unit/mL (3 mL) injection 05-11 00:00: 00 08-17 00:00 :00 No [id number] INJECT 16 UNITS UNDER THE SKIN IN THE MORNING-mu st be the pen [facility] doxycycline hyclate 100 mg tablet 05-11 00:00: 00 08-17 00:00 :00 No [id number] 100mg Take 1 tablet by mouth in the morning and 1 tablet in the evening. [facility] metoprolol succinate XL 25 mg 24 hr tablet 05-11 00:00: 00 05-11 00:00 :00 No [id number] 25mg Take 1 tablet by mouth in the morning. [facility] GABAPENTIN 100 mg capsule 2023-05 00:00: 00 07-29 00:00 :00 No [id number] TAKE 1 CAPSULE BY MOUTH TWICE DAILY NEEDED FOR PAIN (SCALE 7-10) [facility] FAMOTIDINE 40 mg tablet 2023-05- 00:00: 00 07-25 00:00 :00 No [id number] TAKE 1 TABLET BY MOUTH ONCE DAILY BEFORE BREAKFAST [facility] blood sugar diagnostic (ACCU-CHEK GUIDE TEST STRIPS) strip 2023-05 2 00:00: 00 Yes [id number] USE TO CHECK BLOOD GLUCOSE 3 TIMES DAILY. DX E11.69 [facility] blood sugar diagnostic (ACCU-CHEK GUIDE TEST STRIPS) strip 2023-05 00:00: 00 11-18 00:00 :00 No [id number] USE TO CHECK BLOOD GLUCOSE 3 TIMES DAILY. DX E11.69 [facility] Insulin [facility] [place], Disposable, (BD MAMI 2ND GEN PEN NEEDLE) 32 gauge x 5/32" Ndle 2023-05 2-20 00:00: 00 10-03 00:00 :00 No [id number] USE 1 NEEDLE DIRECTED FIVE TIMES DAILY [facility] Lancets (ACCU-CHEK SOFTCLIX LANCETS) Misc 2023-05 2- 00:00: 00 05-19 00:00 :00 No [id number] USE 1 TO CHECK GLUCOSE 4 TIMES DAILY [facility] Insulin Glargine (LANTUS SOLOSTAR U-100 INSULIN) 100 unit/mL (3 mL) injection 2023-05 2 00:00: 00 05-11 00:00 :00 No [id number] INJECT 16 UNITS UNDER THE SKIN IN THE MORNING-[facility] be the pen [facility] insulin lispro (HUMALOG KWIKPEN INSULIN) 100 unit/mL pen injector 2023-05 2 00:00: 00 05-11 00:00 :00 No [id number] INJECT UP TO 18 UNITS SUBCUTANEO USLY THREE TIMES DAILY ACCORDING TO SLIDING SCALE DIRECTED [facility] LIDOCAINE 5 % ointment 2023-05 1- 00:00: 00 Yes [id number] APPLY 2 GRAMS TO AFFECTED AREAS TWICE A DAY NEEDED [facility] LIDOCAINE 5 % ointment 2023-05 0-25 00:00: 00 03-29 00:00 :00 No [id number] APPLY 2 GRAMS TO AFFECTED AREAS TWICE A DAY NEEDED [facility] DULoxetine 30 mg capsule 2023-05 0-16 00:00: 00 05-11 00:00 :00 No [id number] TAKE 1 CAPSULE BY MOUTH ONCE DAILY FOR ANXIETY . APPOINTMEN T REQUIRED FOR FUTURE REFILLS [facility] HUMALOG KWIKPEN INSULIN 100 unit/mL injection 2023-05 0-15 00:00: 00 04-22 00:00 :00 No [id number] INJECT UP TO 18 UNITS SUBCUTANEO USLY THREE TIMES DAILY ACCORDING TO SLIDING SCALE DIRECTED [facility] ATORVASTATI N 40 mg tablet 2023-05 0-14 00:00: 00 05-11 00:00 :00 No [id number] 40mg TAKE 1 TABLET BY MOUTH AT BEDTIME [facility] gabapentin 100 mg capsule 01-27 00:00: 00 Yes [id number] TAKE 1 CAPSULE BY MOUTH TWICE DAILY NEEDED FOR PAIN (SCALE 7-10) [facility] FAMOTIDINE 40 mg tablet 01-26 00:00: 00 Yes [id number] TAKE 1 TABLET BY MOUTH ONCE DAILY BEFORE BREAKFAST [facility] lidocaine 5 % ointment 01-24 00:00: 00 02-25 00:00 :00 No [id number] APPLY 2 GRAMS TO AFFECTED AREAS TWICE A DAY NEEDED [facility] blood sugar diagnostic (ACCU-CHEK GUIDE TEST STRIPS) strip 01-21 00:00: 00 04-22 00:00 :00 No [id number] USE TO CHECK BLOOD GLUCOSE 3 TIMES DAILY. DX E11.69 [facility] blood sugar diagnostic (ACCU-CHEK GUIDE TEST STRIPS) strip 01-13 00:00: 00 01-21 00:00 :00 No [id number] USE TO CHECK BLOOD GLUCOSE 4X DAILY. DX E11.69 [facility] blood sugar diagnostic (ACCU-CHEK GUIDE TEST STRIPS) strip 01-10 00:00: 00 01-13 00:00 :00 No [id number] USE TO CHECK BLOOD GLUCOSE 4X DAILY. DX E11.69 [facility] metoprolol succinate XL 25 mg 24 hr tablet 12-29 00:00: 00 05-11 00:00 :00 No [id number] 25mg Take 1 tablet by mouth in the morning. [facility] lisinopriL 20 mg tablet 12-29 00:00: 00 05-11 00:00 :00 No [id number] 20mg Take 1 tablet by mouth in the morning. [facility] methocarbam oL 500 mg tablet 12-29 00:00: 00 05-11 00:00 :00 No [id number] 500mg Take 1 tablet by mouth 4 (four) times daily. [facility] methylPREDN ISolone (MEDROL, TIM,) 4 mg tablets 12-29 00:00: 00 05-11 00:00 :00 No [id number] Take by mouth SEE-INSTRU CTIONS. follow package directions [facility] busPIRone 15 mg tablet 12-29 00:00: 00 05-11 00:00 :00 No [id number] 15mg Take 1 tablet by mouth every morning and evening. [facility] tirzepatide (MOUNJARO) 2.5 mg/0.5 mL subcutaneou s injection 12-29 00:00: 00 05-11 00:00 :00 No [id number] 2.5mg inject 2.5 mg under the skin weekly. [facility] bevacizumab (AVASTIN) injection 1.25 mg 12-02 16:19: 00 12-02 16:19 :00 No [id number] 1.25mg 1.25 mg, Intravitre al, ONCE PRN, 1 dose, Starting on Mitzi 12/03/23 at 1119, Until Mitzi 12/03/23 at 1119, Routine [facility] cyclobenzap rine 10 mg tablet 11-29 00:00: 00 12-29 00:00 :00 No [id number] TAKE 1 TABLET BY MOUTH IN THE MORNING , THEN TAKE 1 TABLET AT NOON, THEN TAKE 1 TABLET IN THE EVENING [facility] CYCLOBENZAP RINE 10 mg tablet 11-01 00:00: 00 11-29 00:00 :00 No [id number] TAKE 1 TABLET BY MOUTH IN THE MORNING , THEN TAKE 1 TABLET AT NOON, THEN TAKE 1 TABLET IN THE EVENING [facility] bevacizumab (AVASTIN) injection 1.25 mg 10-28 15:58: 00 10-28 15:58 :00 No [id number] 1.25mg 1.25 mg, Intravitre al, ONCE PRN, 1 dose, Starting on Mitzi 10/29/23 at 1058, Until Mitzi 10/29/23 at 1058, Routine [facility] bevacizumab (AVASTIN) injection 1.25 mg 09-30 18:27: 00 09-30 18:27 :00 No [id number] 1.25mg 1.25 mg, Intravitre al, ONCE PRN, 1 dose, Starting on Mitzi 10/01/23 at 1327, Until Mitzi 10/01/23 at 1327, Routine [facility] CYCLOBENZAP RINE 10 mg tablet 09-27 00:00: 00 11-01 00:00 :00 No [id number] TAKE 1 TABLET BY MOUTH IN THE MORNING , THEN TAKE 1 TABLET AT NOON, THEN TAKE 1 TABLET IN THE EVENING [facility] Insulin Glargine (LANTUS SOLOSTAR U-100 INSULIN) 100 unit/mL (3 mL) injection 09-17 00:00: 00 04-22 00:00 :00 No [id number] INJECT 16 UNITS UNDER THE SKIN IN THE MORNING-mu st be the pen [facility] Lancets (ACCU-CHEK SOFTCLIX LANCETS) Misc 09-17 00:00: 00 04-22 00:00 :00 No [id number] USE 1 TO CHECK GLUCOSE 4 TIMES DAILY [facility] blood sugar diagnostic (ACCU-CHEK GUIDE TEST STRIPS) strip 09-17 00:00: 00 01-10 00:00 :00 No [id number] USE TO CHECK BLOOD GLUCOSE 4X DAILY. DX E11.69 [facility] bevacizumab (AVASTIN) injection 1.25 mg 08-12 17:31: 00 08-12 17:31 :00 No [id number] 1.25mg 1.25 mg, Intravitre al, ONCE PRN, 1 dose, Starting on Mitzi 08/13/23 at 1231, Until Mitzi 08/13/23 at 1231, Routine [facility] Diclofenac Sodium 1 % gel 07-28 00:00: 00 Yes [id number] APPLY 4 GRAMS TOPICALLY TO AREA(S) 4 TIMES A DAY [facility] amLODIPine 10 mg tablet 07-28 00:00: 00 05-11 00:00 :00 No [id number] 10mg Take 1 tablet by mouth in the morning. [facility] DULoxetine 30 mg capsule 07-28 00:00: 00 02-16 00:00 :00 No [id number] TAKE 1 CAPSULE BY MOUTH ONCE DAILY FOR ANXIETY, MUST BE SEEN FOR FURTHER REFILLS [facility] insulin lispro (HUMALOG KWIKPEN INSULIN) 100 unit/mL pen injector 07-28 00:00: 00 02-15 00:00 :00 No [id number] INJECT UP TO 18 UNITS UNDER THE SKIN THREE TIMES A DAY ACCORDING TO SLIDING SCALE [facility] atorvastati n 40 mg tablet 07-28 00:00: 00 02-14 00:00 :00 No [id number] 40mg Take 1 tablet by mouth at bedtime. [facility] gabapentin 100 mg capsule 07-28 00:00: 00 01-27 00:00 :00 No [id number] TAKE 1 CAPSULE BY MOUTH TWICE DAILY NEEDED FOR PAIN ( SCALE 7-10) [facility] famotidine 40 mg tablet 07-28 00:00: 00 01-26 00:00 :00 No [id number] 40mg Take 1 tablet by mouth daily before breakfast. [facility] lidocaine 5 % ointment 07-28 00:00: 00 01-24 00:00 :00 No [id number] Apply 2g to affected areas BID PRN [facility] lisinopriL 20 mg tablet 07-28 00:00: 00 12-29 00:00 :00 No [id number] TAKE 1 TABLET BY MOUTH TWICE DAILY IN THE MORNING AND IN THE EVENING [facility] busPIRone 10 mg tablet 07-28 00:00: 00 12-29 00:00 :00 No [id number] 10mg Take 1 tablet by mouth every morning and evening. [facility] fenofibrate 54 mg tablet 07-28 00:00: 11-05 00:00 :00 No [id number] 54mg Take 1 tablet by mouth in the morning. [facility] cyclobenzap rine 10 mg tablet 07-28 00:00: 09-27 00:00 :00 No [id number] TAKE 1 TABLET BY MOUTH IN THE MORNING , THEN TAKE 1 TABLET AT NOON, THEN TAKE 1 TABLET IN THE EVENING [facility] Insulin Glargine (LANTUS SOLOSTAR U-100 INSULIN) 100 unit/mL (3 mL) injection 07-28 00:00: 00 09-17 00:00 :00 No [id number] INJECT 14 UNITS UNDER THE SKIN IN THE MORNING-[facility] bevacizumab (AVASTIN) injection 1.25 mg 07-08 16:59: 00 07-08 16:59 :00 No [id number] 1.25mg 1.25 mg, Intravitre al, ONCE PRN, 1 dose, Starting on Mitzi 324 at 1059, Until Mitzi 324 at 1059, Routine [facility] CYCLOBENZAP RINE 10 mg tablet 07-02 00:00: 00 07-28 00:00 :00 No [id number] TAKE 1 TABLET BY MOUTH IN THE MORNING , THEN TAKE 1 TABLET AT NOON, THEN TAKE 1 TABLET IN THE EVENING [facility] bevacizumab (AVASTIN) injection 1.25 mg 06-04 21:33: 00 06-04 21:33 :00 No [id number] 1.25mg 1.25 mg, Intravitre al, ONCE PRN, 1 dose, Starting on Mitzi 224 at 1533, Until Mitzi 224 at 1533, Routine [facility] ergocalcife rol, vitamin d2, 1,250 mcg (50,000 unit) capsule 06-01 00:00: 00 05-10 00:00 :00 No [id number] Take 1 capsule by mouth weekly. [facility] blood sugar diagnostic (ACCU-CHEK GUIDE TEST STRIPS) strip 05-29 00:00: 00 09-17 00:00 :00 No [id number] USE TO CHECK BLOOD GLUCOSE 4X DAILY. DX E11.69 [facility] DULoxetine 30 mg capsule 05-29 00:00: 00 07-28 00:00 :00 No [id number] TAKE 1 CAPSULE BY MOUTH ONCE DAILY FOR ANXIETY, MUST BE SEEN FOR FURTHER REFILLS [facility] GABAPENTIN 100 mg capsule 05-07 00:00: 00 07-28 00:00 :00 No [id number] TAKE 1 CAPSULE BY MOUTH TWICE DAILY NEEDED FOR PAIN ( SCALE 7-10) [facility] busPIRone 10 mg tablet 2022-05 00:00: 00 07-28 00:00 :00 No [id number] 10mg TAKE 1 TABLET BY MOUTH IN THE MORNING AND 1 IN THE EVENING [facility] insulin lispro (HUMALOG KWIKPEN INSULIN) 100 unit/mL pen injector 2022-05 00:00: 00 Yes [id number] INJECT UP TO 18 UNITS UNDER THE SKIN THREE TIMES A DAY ACCORDING TO SLIDING SCALE [facility] Insulin Glargine (LANTUS SOLOSTAR U-100 INSULIN) 100 unit/mL (3 mL) injection 2022-05 00:00: 00 Yes [id number] INJECT 14 UNITS UNDER THE SKIN IN THE MORNING [facility] insulin lispro (HUMALOG KWIKPEN INSULIN) 100 unit/mL pen injector 2022-05 00:00: 00 07-28 00:00 :00 No [id number] INJECT UP TO 18 UNITS UNDER THE SKIN THREE TIMES A DAY ACCORDING TO SLIDING SCALE [facility] Insulin Glargine (LANTUS SOLOSTAR U-100 INSULIN) 100 unit/mL (3 mL) injection 2022-05 00:00: 07-28 00:00 :00 No [id number] INJECT 14 UNITS UNDER THE SKIN IN THE MORNING [facility] DULOXETINE 30 mg capsule 2022-05 0- 00:00: 00 05-29 00:00 :00 No [id number] TAKE 1 CAPSULE BY MOUTH ONCE DAILY FOR ANXIETY [facility] FENOFIBRATE 54 mg tablet 2022-05 0 00:00: 00 07-28 00:00 :00 No [id number] 54mg TAKE 1 TABLET BY MOUTH IN THE MORNING [facility] AMLODIPINE 10 mg tablet 2022-05 00:00: 00 07-28 00:00 :00 No [id number] 10mg TAKE 1 TABLET BY MOUTH IN THE MORNING [facility] LISINOPRIL 20 mg tablet 2022-05 00:00: 00 07-28 00:00 :00 No [id number] TAKE 1 TABLET BY MOUTH TWICE DAILY IN THE MORNING AND IN THE EVENING [facility] Lancets (ACCU-CHEK SOFTCLIX LANCETS) Misc 2022-05 0 00:00: 00 09-17 00:00 :00 No [id number] USE 1 TO CHECK GLUCOSE 4 TIMES DAILY [facility] LANTUS SOLOSTAR U-100 INSULIN 100 unit/mL (3 mL) injection 01-22 00:00: 00 03-20 00:00 :00 No [id number] INJECT 14 UNITS UNDER THE SKIN IN THE MORNING [facility] calcium carbonate 500 mg calcium (1,250 mg) tablet 12 00:00: 00 Yes [id number] 500mg Take 1 tablet by mouth in the morning. [facility] blood sugar diagnostic (ACCU-CHEK GUIDE TEST STRIPS) strip - 00:00: 00 05-29 00:00 :00 No [id number] USE TO CHECK BLOOD GLUCOSE 4X DAILY. DX E11.69 [facility] OMEPRAZOLE 40 mg capsule 6-30 00:00: 00 07-28 00:00 :00 No [id number] 40mg Take 1 capsule by mouth in the morning [facility] FAMOTIDINE 40 mg tablet 10-31 00:00: 00 07-28 00:00 :00 No [id number] TAKE 1 TABLET BY MOUTH IN THE MORNING [facility] DICLOFENAC SODIUM 1 % gel 10-31 00:00: 00 07-28 00:00 :00 No [id number] APPLY 4 GRAMS TOPICALLY TO AREA(S) 4 TIMES A DAY [facility] CYCLOBENZAP RINE 10 mg tablet 10-31 00:00: 00 07-02 00:00 :00 No [id number] TAKE 1 TABLET BY MOUTH IN THE MORNING , THEN TAKE 1 TABLET AT NOON, THEN TAKE 1 TABLET IN THE EVENING [facility] DICLOFENAC SODIUM 1 % gel 10-21 00:00: 00 Yes [id number] APPLY 4 GRAMS TOPICALLY TO AREA(S) 4 TIMES A DAY [facility] amLODIPine 10 mg tablet 09-26 00:00: 00 02-27 00:00 :00 No [id number] 10mg Take 1 tablet by mouth in the morning. [facility] lisinopriL 20 mg tablet 09-26 00:00: 00 02-27 00:00 :00 No [id number] 20mg Take 1 tablet by mouth in the morning and 1 tablet in the evening. Dx: E11.65 [facility] simethicone (GAS-X ORAL) 09-03 13:06: 08-17 00:00 :00 No Take by mouth. [facility] meclizine 25 mg tablet 09-03 13:06: 08-17 00:00 :00 No 25mg Take 1 tablet by mouth 3 (three) times daily as needed. [facility] ondansetron 4 mg tablet 09-03 13:06: 11-05 00:00 :00 No 4mg Take 1 tablet by mouth every 8 (eight) hours as needed. [facility] lidocaine 5 % ointment 09-03 00:00: 07-28 00:00 :00 No [id number] Apply 2g to affected areas BID PRN [facility] ergocalcife rol, vitamin d2, 1,250 mcg (50,000 unit) capsule 09-03 00:00: 00 06-01 00:00 :00 No [id number] Take 1 capsule by mouth weekly. [facility] gabapentin 100 mg capsule 09-03 00:00: 00 05-07 00:00 :00 No [id number] TAKE 1 CAPSULE BY MOUTH TWICE DAILY NEEDED FOR PAIN ( SCALE 7-10) [facility] busPIRone 10 mg tablet 09-03 00:00: 00 04-14 00:00 :00 No [id number] 10mg Take 1 tablet by mouth in the morning and 1 tablet in the evening. [facility] DULoxetine 30 mg capsule 09-03 00:00: 00 03-02 00:00 :00 No [id number] TAKE 1 CAPSULE BY MOUTH ONCE DAILY FOR ANXIETY [facility] fenofibrate 54 mg tablet 09-03 00:00: 00 02-27 00:00 :00 No [id number] 54mg Take 1 tablet by mouth in the morning. [facility] cyclobenzap rine 10 mg tablet 09-03 00:00: 00 10-31 00:00 :00 No [id number] 10mg Take 1 tablet by mouth in the morning and 1 tablet at noon and 1 tablet in the evening. [facility] Diclofenac Sodium (VOLTAREN) 1 % gel 09-03 00:00: 00 10-21 00:00 :00 No [id number] Apply to area(s) 4 (four) times daily. Apply 4 g qid [facility] amLODIPine 10 mg tablet 09-03 00:00: 00 09-26 00:00 :00 No [id number] 10mg Take 1 tablet by mouth in the morning. [facility] lisinopriL 20 mg tablet 09-03 00:00: 00 09-26 00:00 :00 No [id number] 20mg Take 1 tablet by mouth in the morning and 1 tablet in the evening. Dx: E11.65 [facility] Insulin [place], Disposable, (BD MAMI 2ND GEN PEN NEEDLE) 32 gauge x 5/32" Ndle 08-22 00:00: 00 Yes [id number] USE 1 NEEDLE DIRECTED FIVE TIMES DAILY [facility] insulin lispro (HUMALOG KWIKPEN INSULIN) 100 unit/mL pen injector 08-22 00:00: 00 Yes [id number] INJECT UP TO 19 UNITS UNDER THE SKIN THREE TIMES A DAY ACCORDING TO SLIDING SCALE [facility] Insulin [facility] [place], Disposable, (BD MAMI 2ND GEN PEN NEEDLE) 32 gauge x 5/32" Ndle 08-22 00:00: 00 04-22 00:00 :00 No [id number] USE 1 NEEDLE DIRECTED FIVE TIMES DAILY [facility] atorvastati n 40 mg tablet 08-22 00:00: 00 07-28 00:00 :00 No [id number] 40mg Take 1 tablet by mouth at bedtime. [facility] insulin lispro (HUMALOG KWIKPEN INSULIN) 100 unit/mL pen injector 08-22 00:00: 00 03-20 00:00 :00 No [id number] INJECT UP TO 19 UNITS UNDER THE SKIN THREE TIMES A DAY ACCORDING TO SLIDING SCALE [facility] lancets (ULTRA THIN LANCETS) 30 gauge Misc 08-22 00:00: 00 02-25 00:00 :00 No [id number] Use as directed to check blood sugars 4 times daily Dx: E11.69 [facility] Insulin Glargine (LANTUS SOLOSTAR U-100 INSULIN) 100 unit/mL (3 mL) injection 08-22 00:00: 00 01-22 00:00 :00 No [id number] 14U inject 14 Units under the skin in the morning. [facility] blood sugar diagnostic (ACCU-CHEK GUIDE TEST STRIPS) strip 2023-0 4-21 00:00: 00 11-22 00:00 :00 No [id number] USE TO CHECK BLOOD GLUCOSE 3X DAILY. DX E11.69 [facility] blood sugar diagnostic (ACCU-CHEK GUIDE TEST STRIPS) strip 4-19 00:00: 00 08-22 00:00 :00 No [id number] USE TO CHECK BLOOD GLUCOSE 3X DAILY. DX E11.69 [facility] blood sugar diagnostic (ACCU-CHEK GUIDE TEST STRIPS) strip 4-14 00:00: 00 Yes [id number] USE DIRECTED 4 TIMES DAILY [facility] Insulin [facility] [place], Disposable, (BD MAMI 2ND GEN PEN NEEDLE) 32 gauge x 5/32" Ndle 3- 00:00: 00 08-22 00:00 :00 No [id number] USE 1 NEEDLE DIRECTED FIVE TIMES DAILY [facility] ATORVASTATI N 40 mg tablet 3- 00:00: 00 08-22 00:00 :00 No [id number] 40mg TAKE 1 TABLET BY MOUTH AT BEDTIME [facility] ERGOCALCIFE ROL, VITAMIN D2, 1,250 mcg (50,000 unit) capsule 3- 00:00: 00 09-03 00:00 :00 No [id number] Take 1 capsule by mouth once a week [facility] BD MAMI 2ND GEN PEN NEEDLE 32 gauge x 5/32" Ndle 1-05 00:00: 00 07-12 00:00 :00 No [id number] USE 1 NEEDLE DIRECTED FIVE TIMES DAILY [facility] busPIRone 10 mg tablet 2021-05- 00:00: 00 09-03 00:00 :00 No [id number] 10mg Take 1 tablet by mouth in the morning and 1 tablet in the evening. [facility] cyclobenzap rine 10 mg tablet 2021-05 2- 00:00: 00 09-03 00:00 :00 No [id number] 10mg Take 1 tablet by mouth in the morning and 1 tablet at noon and 1 tablet in the evening. [facility] gabapentin 100 mg capsule 2021-05 00:00: 00 09-03 00:00 :00 No [id number] TAKE 1 CAPSULE BY MOUTH TWICE DAILY NEEDED FOR PAIN ( SCALE 7-10) [facility] fenofibrate 54 mg tablet 2021-05 00:00: 00 09-03 00:00 :00 No [id number] 54mg Take 1 tablet by mouth in the morning. [facility] iopamidol (ISOVUE 300-500 mL) injection 150 mL 2021-05 21:30: 00 04-11 20:31 :00 No [id number] 150mL 150 mL, Intravenou s, ONCE, 1 dose, On Thu04/11/22 at 1530, Routine [facility] heparin 1,000 unit/mL injection 2021-05 19:32: 49 04-11 19:32 :49 No Slow IV Push, PRN, Starting on Thu04/11/22 at 1332, Until Discontinu ed, Routine [facility] nitroglycer in 50 mg in D5W 250 mL infusion RTU 2021-05 19:32: 39 04-11 19:32 :39 No CONTINUOUS PRN, Starting on Thu04/11/22 at 1332 [facility] verapamiL (ISOPTIN) injection 2021-05 19:32: 30 04-11 19:32 :30 No PRN, Starting on Thu04/11/22 at 1332, Until Discontinu ed, Routine [facility] lidocaine 1% (PF) (XYLOCAINE) injection 2021-05 19:32: 02 04-11 19:32 :02 No PRN, Starting on Thu04/11/22 at 1332, Until Discontinu ed, Routine [facility] ondansetron (ZOFRAN (PF)) injection 2021-05 19:02: 00 04-11 19:02 :00 No Slow IV Push, PRN, Starting on Thu04/11/22 at 1302, Until Discontinu ed, Routine [facility] FENTanyl PF (SUBLIMAZE (PF)) injection 2021-05 19:00: 00 04-11 19:00 :00 No Slow IV Push, PRN, Starting on Thu04/11/22 at 1300, Until Discontinu ed, Routine [facility] midazolam (VERSED) injection 2021-05 19:00: 00 04-11 19:00 :00 No IV Push, PRN, Starting on Thu04/11/22 at 1300, Until Discontinu ed, Routine [facility] ERGOCALCIFE ROL, VITAMIN D2, 1,250 mcg (50,000 unit) capsule 2021-05 00:00: 00 07-02 00:00 :00 No [id number] Take 1 capsule by mouth once a week [facility] GABAPENTIN 100 mg capsule 2021-05 00:00: 00 04-23 00:00 :00 No [id number] TAKE 1 CAPSULE BY MOUTH TWICE DAILY NEEDED FOR PAIN ( SCALE 7-10) [facility] lancets (ULTRA THIN LANCETS) 30 gauge Misc 2021-05 00:00: 00 08-22 00:00 :00 No Use as directed to check blood sugars 4 times daily Dx: E11.69 [facility] gabapentin 100 mg capsule 2021-05 00:00: 00 04-07 00:00 :00 No [id number] 100mg Take 1 capsule by mouth 2 (two) times daily as needed for Pain (scale 7-10). [facility] insulin lispro (HUMALOG KWIKPEN INSULIN) 100 unit/mL pen injector 2021-05 0-14 00:00: 00 Yes [id number] INJECT UP TO 19 UNITS UNDER THE SKIN THREE TIMES A DAY ACCORDING TO SLIDING SCALE [facility] Insulin Glargine (LANTUS SOLOSTAR U-100 INSULIN) 100 unit/mL (3 mL) injection 2021-05 0-14 00:00: 00 Yes [id number] 14U inject 14 Units under the skin in the morning. [facility] insulin lispro (HUMALOG KWIKPEN INSULIN) 100 unit/mL pen injector 2021-05 0-14 00:00: 00 08-22 00:00 :00 No [id number] INJECT UP TO 19 UNITS UNDER THE SKIN THREE TIMES A DAY ACCORDING TO SLIDING SCALE [facility] Insulin Glargine (LANTUS SOLOSTAR U-100 INSULIN) 100 unit/mL (3 mL) injection 2021-05 0-14 00:00: 00 08-22 00:00 :00 No [id number] 14U inject 14 Units under the skin in the morning. [facility] blood sugar diagnostic (ACCU-CHEK GUIDE TEST STRIPS) strip 2021-05 0 00:00: 00 08-15 00:00 :00 No [id number] Use to check blood sugars 4 times daily. Dx E11.69 [facility] blood sugar diagnostic (ACCU-CHEK GUIDE TEST STRIPS) strip 30 00:00: 00 02-14 00:00 :00 No Use to check blood sugars 4 times daily. Dx E11.69 [facility] CYCLOBENZAP RINE 10 mg tablet 01-30 00:00: 00 04-23 00:00 :00 No [id number] TAKE 1 TABLET BY MOUTH THREE TIMES DAILY [facility] ondansetron (ZOFRAN) 4 mg tablet 01-17 08:46: 10 Yes 4mg Take 4 mg by mouth every 8 (eight) hours as needed. [facility] meclizine 25 mg tablet 01-17 08:46: 10 Yes 25mg Take 25 mg by mouth 3 (three) times daily as needed. [facility] docusate (COLACE) 100 mg capsule 01-17 00:00: 00 Yes [id number] 100mg Take 1 capsule by mouth 2 (two) times daily as needed for Constipati on. [facility] psyllium husk (METAMUCIL) 0.4 gram Cap 01-17 00:00: 00 04-23 00:00 :00 No [id number] 1{capsu le} Take 1 capsule by mouth daily. [facility] Sennosides 8.6 mg Cap 16 00:00: 00 04-23 00:00 :00 No [id number] 1{kaylie le} Take 1 capsule by mouth daily. [facility] aspirin 81 mg EC tablet 01-17 00:00: 00 04-23 00:00 :00 No [id number] 81mg Take 1 tablet by mouth in the morning. [facility] atorvastati n 40 mg tablet 01-17 00:00: 00 04-13 00:00 :00 No [id number] 40mg Take 1 tablet by mouth at bedtime. [facility] simethicone (GAS-X ORAL) 11-14 15:37: 03 Yes Take by mouth. [facility] polyethylen e glycol 3350 (MIRALAX ORAL) 11-14 15:37: 02 Yes Take by mouth. [facility] dicyclomine 10 mg capsule 11-14 00:00: 00 05-11 00:00 :00 No [id number] 10mg Take 1 capsule by mouth 2 (two) times daily as needed for Other (abdominal pain). Take 10 mg by mouth 2 (two) times daily as needed. [facility] albuterol 90 mcg/actuati on inhaler 11-14 00:00: 00 11-05 00:00 :00 No [id number] INHALE 2 PUFFS BY MOUTH EVERY 6 HOURS NEEDED FOR WHEEZING FOR SHORTNESS OF BREATH [facility] hydrOXYzine 25 mg tablet 11-14 00:00: 00 07-28 00:00 :00 No [id number] 25mg Take 1 tablet by mouth 3 (three) times daily as needed for Itching. [facility] famotidine 40 mg tablet 11-14 00:00: 00 10-31 00:00 :00 No [id number] 40mg Take 1 tablet by mouth in the morning. Get over the counter if not available [facility] omeprazole 40 mg capsule 11-14 00:00: 00 10-31 00:00 :00 No [id number] 40mg Take 1 capsule by mouth in the morning. [facility] DULoxetine 30 mg capsule 11-14 00:00: 00 09-03 00:00 :00 No [id number] TAKE 1 CAPSULE BY MOUTH ONCE DAILY FOR ANXIETY [facility] LANTUS SOLOSTAR U-100 INSULIN 100 unit/mL (3 mL) injection 11-03 00:00: 00 02-14 00:00 :00 No [id number] INJECT 14 UNITS SUBCUTANEO USLY ONCE DAILY [facility] ergocalcife rol, vitamin d2, (VITAMIN D2) 1,250 mcg (50,000 unit) capsule 10-24 00:00: 00 04-09 00:00 :00 No [id number] Take 1 capsule by mouth weekly. [facility] amLODIPine 10 mg tablet 10-23 00:00: 00 09-03 00:00 :00 No [id number] 10mg Take 1 tablet by mouth daily. [facility] lisinopriL 20 mg tablet 10-23 00:00: 00 09-03 00:00 :00 No [id number] 20mg Take 1 tablet by mouth 2 (two) times daily. Dx: E11.65 [facility] [facility] BUSPIRONE 10 mg tablet 10-22 00:00: 00 04-23 00:00 :00 No [id number] Take 1 tablet by mouth twice daily [facility] lancets (ULTRA THIN LANCETS) 30 gauge Misc -13 00:00: 00 04-03 00:00 :00 No Use as directed to check blood sugars 4 times daily for E11.69 [facility] blood sugar diagnostic (ACCU-CHEK GUIDE TEST STRIPS) strip -05 00:00: 00 01-31 00:00 :00 No Use to check blood sugars 4 times daily. Dx E11.69 [facility] Lancets (RELION ULTRA THIN PLUS LANCETS) [facility] [place] [facility] [place] 4-25 00:00: 00 04-03 00:00 :00 No Use as directed to check blood sugars twice daily for E11.69 30 gauge please [facility] Blood-Gluco se Meter (ACCU-CHEK GUIDE GLUCOSE METER) [facility] [place] [facility] [place] 4-21 00:00: 00 Yes Use as directed to check blood sugars for E11.65 [facility] Blood-Gluco se Meter (ACCU-CHEK GUIDE GLUCOSE METER) [facility] [place] [facility] [place] 4-21 00:00: 00 Yes Use as directed to check blood sugars for E11.65 [facility] lancets (ONE TOUCH DELICA) 33 gauge [facility] [place] [facility] [place] - 00:00: 00 04-03 00:00 :00 No Use as directed to check blood sugars twice daily E11.65 [facility] Insulin [facility] [place], Disposable, (MAMI PEN NEEDLE) 32 gauge x 5/32" Ndle 08 00:00: 00 05-08 00:00 :00 No [id number] USE DIRECTED FIVE TIMES A DAY [facility] insulin lispro (HUMALOG KWIKPEN INSULIN) 100 unit/mL pen injector 08 00:00: 00 02-14 00:00 :00 No [id number] INJECT UP TO 19 UNITS UNDER THE SKIN THREE TIMES A DAY ACCORDING TO SLIDING SCALE [facility] cyclobenzap rine 10 mg tablet -29 00:00: 00 01-30 00:00 :00 No [id number] 10mg Take 1 tablet by mouth 3 (three) times daily. [facility] Diclofenac Sodium 1 % gel 3-28 00:00: 00 09-03 00:00 :00 No [id number] APPLY 4G TO AFFECTED AREAS TWO TIMES A DAY NEEDED FOR PAIN (SCALE 4-6) [facility] Diclofenac Sodium 1 % gel 1-03 00:00: 00 06-06 05:59 :00 No [id number] Apply to area(s) 2 (two) times daily as needed for Pain (scale 4-6) for up to 30 days. [facility] ergocalcife rol, vitamin d2, (VITAMIN D2) 1,250 mcg (50,000 unit) capsule 2020-05 00:00: 00 10-24 00:00 :00 No [id number] 83551G Take 1 capsule by mouth weekly. [facility] aspirin 81 mg chewable tablet 2020-05 15:13: 36 04-01 00:00 :00 No 81mg Take 81 mg by mouth daily. [facility] cyclobenzap rine 10 mg tablet 2020-05 00:00: 00 07-30 00:00 :00 No [id number] 07 10mg Take 1 tablet by mouth 2 (two) times daily as needed for Muscle Spasms. [facility] blood sugar diagnostic (ONETOUCH ULTRA TEST) strip 2020-05 00:00: 00 08-09 00:00 :00 No [id number] USE TO CHECK BLOOD SUGAR FOUR TIMES A DAY [facility] atorvastati n 20 mg tablet 2020-05 00:00: 00 01-17 00:00 :00 No [id number] TAKE 1/2 (ONE-HALF) TABLET BY MOUTH ONCE DAILY [facility] Insulin Glargine (LANTUS SOLOSTAR U-100 INSULIN) 100 unit/mL (3 mL) injection 2020-05 00:00: 00 08-09 00:00 :00 No [id number] INJECT 14 UNITS SUBCUTANEO USLY ONCE DAILY [facility] insulin lispro (HUMALOG KWIKPEN INSULIN) 100 unit/mL pen injector 2020-05 00:00: 00 07-22 00:00 :00 No [id number] INJECT UP TO 19 UNITS UNDER THE SKIN THREE TIMES A DAY ACCORDING TO SLIDING SCALE [facility] lancets (ONE TOUCH DELICA) 33 gauge Misc 8-31 00:00: 00 06-03 00:00 :00 No [id number] USE DIRECTED 4 TIMES DAILY [facility] STRESS FORMULA WITH ZINC tablet 830 00:00: 00 Yes [id number] Take 1 tablet by mouth once daily [facility] STRESS FORMULA WITH ZINC tablet 12-31 00:00: 00 11-05 00:00 :00 No [id number] Take 1 tablet by mouth once daily [facility] DULoxetine 30 mg capsule 11-20 00:00: 00 10-22 00:00 :00 No [id number] TAKE 1 CAPSULE BY MOUTH ONCE DAILY FOR ANXIETY [facility] busPIRone 10 mg tablet 11-20 00:00: 00 10-22 00:00 :00 No [id number] 10mg Take 1 tablet by mouth 2 (two) times daily. [facility] lisinopriL 20 mg tablet 08-29 00:00: 00 10-23 00:00 :00 No [id number] 20mg Take 1 tablet by mouth 2 (two) times daily. Dx: E11.65 [facility] amLODIPine 10 mg tablet 08-29 00:00: 00 10-23 00:00 :00 No [id number] 10mg Take 1 tablet by mouth daily. [facility] chlorhexidi ne 0.12 % mouthwash 07-30 00:00: 00 Yes [id number] 15mL Swish and spit out 15 mL 2 (two) times daily. [facility] chlorhexidi ne 0.12 % mouthwash 07-30 00:00: 00 08-17 00:00 :00 No [id number] 15mL Swish and spit out 15 mL 2 (two) times daily. [facility] azelastine 137 mcg (0.1 %) nasal spray 07-30 00:00: 00 05-11 00:00 :00 No [id number] 1{spray } Use 1 [place] in each nostril 2 (two) times daily. Use in each nostril as directed [facility] levocetiriz ine 5 mg tablet 07-30 00:00: 00 09-03 00:00 :00 No [id number] 5mg Take 1 tablet by mouth every evening. [facility] mupirocin 2 % ointment 07-30 00:00: 00 11-14 00:00 :00 No [id number] Apply to both nostrils 2x daily after using azelastine nasal spray. Can add saline spray if nose is too dry [facility] famotidine 40 mg tablet 07-30 00:00: 00 11-14 00:00 :00 No [id number] 40mg Take 1 tablet by mouth daily. Get over the counter if not available [facility] pantoprazol e 40 mg EC tablet 07-30 00:00: 00 07-23 00:00 :00 No [id number] 40mg Take 1 tablet by mouth daily. [facility] PROAIR HFA 90 mcg/actuati on inhaler 06-30 00:00: 00 11-14 00:00 :00 No [facility] ergocalcife rol, vitamin d2, (VITAMIN D2) 1,250 mcg (50,000 unit) capsule 05-20 00:00: 00 05-01 00:00 :00 No [id number] Take 1 capsule by mouth weekly. [facility] albuterol (PROAIR HFA) 90 mcg/actuati on inhaler 05-17 00:00: 00 07-23 00:00 :00 No [id number] 2{puff} Inhale 2 Puffs every 6 (six) hours as needed for Wheezing or Shortness of Breath. [facility] DULoxetine 30 mg capsule 05-17 00:00: 00 10-31 00:00 :00 No [id number] 30mg Take 1 capsule by mouth daily. For anxiety. [facility] amoxicillin -clavulanat e 400-57 mg/5 mL suspension 05-17 00:00: 00 05-28 05:59 :00 No [id number] 880mg Take 11 mL by mouth 2 (two) times daily for 10 days. [facility] dicyclomine 10 mg capsule 2019-05 00:00: 00 11-14 00:00 :00 No 10mg Take 10 mg by mouth 2 (two) times daily as needed. [facility] sucralfate 100 mg/mL suspension 2019-05 00:00: 04-01 00:00 :00 No 10mL Take 10 mL by mouth every evening. [facility] famotidine 20 mg tablet 2019-05 00:00: 00 04-01 00:00 :00 No TAKE 1 TABLET BY MOUTH IN THE EVENING [facility] cetirizine- psuedoephed rine (ZYRTEC-D) 5-120 mg per tablet 2019-05 13:43: 42 02-28 00:00 :00 No 1{tbl} Take 1 tablet by mouth 2 (two) times daily. [facility] busPIRone 10 mg tablet 2019-05 00:00: 00 10-31 00:00 :00 No [id number] 10mg Take 1 tablet by mouth 2 (two) times daily. [facility] dicyclomine (BENTYL) 20 mg tablet 2019-05 00:00: 00 05-17 00:00 :00 No [id number] 20mg Take 1 tablet by mouth 4 (four) times daily as needed for Abdominal pain. [facility] DULoxetine 30 mg capsule 2019-0516 00:00: 00 05-17 00:00 :00 No [id number] 30mg Take 1 capsule by mouth daily. [facility] pantoprazol e 40 mg EC tablet 01-29 00:00: 00 07-30 00:00 :00 No [id number] 105 40mg Take 1 tablet by mouth daily. [facility] azelastine 137 mcg (0.1 %) nasal spray 01-29 00:00: 00 07-30 00:00 :00 No [id number] 1{spray } Use 1 [place] in each nostril 2 (two) times daily. Use in each nostril as directed [facility] levocetiriz ine 5 mg tablet 01-29 00:00: 00 07-30 00:00 :00 No [id number] 5mg Take 1 tablet by mouth every evening. [facility] mupirocin 2 % ointment 01-29 00:00: 07-30 00:00 :00 No [id number] Apply to both nostrils 2x daily after using azelastine nasal spray. Can add saline spray if nose is too dry [facility] famotidine 40 mg tablet 01-29 00:00: 00 05-17 00:00 :00 No [id number] 105 40mg Take 1 tablet by mouth daily. If not available, get over the counter pepcid (famotidin e) and use 2x 20 mg tablet daily at bedtime [facility] blood sugar diagnostic (ONETOUCH VERIO TEST STRIPS) strip 01-06 00:00: 00 06-29 00:00 :00 No Use to check blood sugar QID daily. DX:E11.65 [facility] lancets (ONETOUCH DELICA PLUS LANCET) 33 gauge Misc 01-06 00:00: 00 06-29 00:00 :00 No [id number] Use to check blood sugar 4X daily. DX:E11.65 [facility] insulin lispro (HUMALOG KWIKPEN INSULIN) 100 unit/mL pen injector 01-06 00:00: 00 06-29 00:00 :00 No [id number] Up to 57 units three times daily according to sliding scale DX: E11.65 [facility] Insulin Glargine (LANTUS SOLOSTAR U-100 INSULIN) 100 unit/mL (3 mL) injection 01-06 00:00: 00 06-29 00:00 :00 No [id number] 14U inject 14 Units under the skin daily. DX: E11.65 [facility] insulin lispro (HUMALOG KWIKPEN INSULIN) 100 unit/mL pen injector 9-05 00:00: 06-29 00:00 :00 No [id number] Up to 57 units three times daily according to sliding scale DX: E11.65 [facility] vitamin b complex + C + Zinc STRESS FORMULA tablet 08-23 00:00: 12-31 00:00 :00 No [id number] 1{tbl} Take 1 tablet by mouth daily. [facility] chlorhexidi ne 0.12 % mouthwash 08-23 00:00: 07-30 00:00 :00 No [id number] 15mL Swish and spit out 15 mL 2 (two) times daily. [facility] [place], Disposable, (MAMI PEN NEEDLE) 32 gauge x 5/32" Ndle 4-10 00:00: 00 08-09 00:00 :00 No [id number] USE DIRECTED FIVE TIMES A DAY [facility] [place], Disposable, (MAMI PEN NEEDLE) 32 gauge x 5/32" Ndle 4-10 00:00: 00 08-09 00:00 :00 No [id number] USE DIRECTED FIVE TIMES A DAY [facility] atorvastati n 20 mg tablet 4-10 00:00: 00 03-22 00:00 :00 No [id number] TAKE 1/2 (ONE-HALF) TABLET BY MOUTH ONCE DAILY [facility] lisinopril 20 mg tablet 4-10 00:00: 00 08-29 00:00 :00 No [id number] 20mg Take 1 tablet by mouth 2 (two) times daily. Dx: E11.65 [facility] amLODIPine 10 mg tablet 4-10 00:00: 00 08-29 00:00 :00 No [id number] 10mg Take 1 tablet by mouth daily. [facility] hydrOXYzine 25 mg tablet 3-30 00:00: 00 11-14 00:00 :00 No [id number] 25mg Take 1 tablet by mouth 3 (three) times daily as needed for Itching. [facility] clobetasoL 0.05 % cream 07-28 00:00: 00 Yes [id number] Apply to area(s) 2 (two) times daily. [facility] Blood-Gluco se Meter (ONETOUCH VERIO IQ METER) Kit 2018-05 00:00: 00 08-22 00:00 :00 No Use to check blood sugar 3X daily. DX:E11.65 [facility] Blood-Gluco se Meter (ONETOUCH VERIO IQ METER) Kit 2018-05 00:00: 00 08-22 00:00 :00 No Use to check blood sugar 3X daily. DX:E11.65 [facility] cyclobenzap rine 10 mg tablet 2017-05 00:00: 00 04-01 00:00 :00 No 10mg Take 1 tablet by mouth 2 (two) times daily as needed for Muscle Spasms. [facility] DOBUTamine (DOBUTREX) 500 mg in 250mL(Fixed Dose) D5W infusion 12-12 12:56: 55 02-28 18:44 :36 No [id number] 460.5ug /min [facility] chlorhexidi ne 0.12 % mouthwash 09-02 00:00: 00 05-17 00:00 :00 No 5mL Swish and spit out 5 mL daily. [facility] amitriptyli ne (ELAVIL) 10 mg tablet 01-01 00:00: 00 05-30 00:00 :00 No [id number] 10mg Take 1 Tab by mouth at bedtime. [facility] Insulin Glargine (LANTUS SOLOSTAR) 100 unit/mL (3 mL) InPn 12-22 00:00: 00 04-06 00:00 :00 No [id number] 55U inject 55 Units under the skin 2 (two) times daily. [facility] insulin aspart (NOVOLOG FLEXPEN) 100 unit/mL injection 12-22 00:00: 00 04-06 00:00 :00 No [id number] Use three times daily per sliding scale up to 60 units daily [facility] amLODIPine (NORVASC) 10 mg tablet 12-22 00:00: 00 04-06 00:00 :00 No 10mg Take 1 Tab by mouth daily. [facility] lisinopril (PRINIVIL,Z ESTRIL) 20 mg tablet 12-22 00:00: 00 04-02 00:00 :00 No 20mg Take 1 Tab by mouth 2 (two) times daily. [facility] DULoxetine (CYMBALTA) 30 mg capsule 10-03 00:00: 00 05-30 00:00 :00 No 60mg Take 2 Caps by mouth daily. [facility] prazosin (MINIPRES) 2 mg capsule 09-19 00:00: 00 05-30 00:00 :00 No [id number] 2mg Take 1 Cap by mouth at bedtime. [facility] albuterol (PROAIR HFA) 90 mcg/Actuati on inhaler 09-05 09:36: 15 09-05 00:00 :00 No 2{puff} Inhale 2 Puffs every 6 (six) hours as needed. [facility] albuterol (PROAIR HFA) 90 mcg/actuati on inhaler 09-05 00:00: 00 05-17 00:00 :00 No [id number] 2{puff} Inhale 2 Puffs every 6 (six) hours as needed for Wheezing or Shortness of Breath (prescribe with aerochambe r (spacer)). [facility] azelastine (ASTELIN) 137 mcg nasal spray 09-05 00:00: 00 07-04 00:00 :00 No [id number] 2{spray } Use 2 Sprays in each nostril 2 (two) times daily. Use in each nostril as directed [facility] montelukast (SINGULAIR) 10 mg tablet 09-05 00:00: 00 12-14 00:00 :00 No [id number] 10mg Take 1 Tab by mouth daily. [facility] levocetiriz ine (XYZAL) 5 mg tablet 09-05 00:00: 00 06-22 00:00 :00 No 5mg Take 1 Tab by mouth every evening. [facility] Insulin [facility] [place], Disposable, (BD ULTRAFINE III MINI PEN) 31 x 3/16 " Ndle 06-06 00:00: 00 08-13 00:00 :00 No Use as directed [facility] mupirocin (BACTROBAN) 2 % ointment 2012-05 00:00: 00 05-17 00:00 :00 No [id number] Apply to area(s) 3 (three) times daily. [facility] nystatin (MYCOSTATIN ) 100,000 unit/gram ointment 2012-05 00:00: 00 05-09 00:00 :00 No Apply to area(s) 2 (two) times daily. [facility] butalbital- acetaminoph en-caff (ESGIC) 50-325-40 mg tablet 2012-05 00:00: 00 08-12 00:00 :00 No 1{tbl} Take 1 Tab by mouth every 6 (six) hours as needed for Migraine. [facility] Azelastine (ASTEPRO) 0.15 % (205.5 mcg) [place] 01-10 00:00: 00 09-05 00:00 :00 No [id number] 2{spray } Use 2 Sprays in each nostril 2 (two) times daily. [facility] montelukast (SINGULAIR) 10 mg tablet 01-10 00:00: 00 09-05 00:00 :00 No [id number] 10mg Take 1 Tab by mouth daily. [facility] omeprazole (PRILOSEC) 40 mg capsule 01-10 00:00: 00 09-05 00:00 :00 No [id number] 40mg Take 1 Cap by mouth 2 (two) times daily. [facility] metformin ER (GLUCOPHAGE -XR) 500 mg 24 hr tablet 01-07 00:00: 00 04-15 00:00 :00 No [id number] 500mg Take 1 Tab by mouth 2 (two) times daily. [facility] citalopram (CELEXA) 40 mg tablet 01-05 00:00: 00 04-06 00:00 :00 No [id number] 40mg Take 1 Tab by mouth daily. [facility] prazosin (MINIPRES) 1 mg capsule 01-05 00:00: 00 04-06 00:00 :00 No [id number] 1mg Take 1 Cap by mouth at bedtime. [facility] Insulin Glargine (LANTUS SOLOSTAR) 100 unit/mL (3 mL) [facility] 10-06 00:00: 00 04-11 00:00 :00 No [id number] 40U inject 40 Units under the skin 2 (two) times daily. [facility] Insulin Glulisine (APIDRA SOLOSTAR) 100 unit/mL [facility] 10-06 00:00: 00 04-11 00:00 :00 No [id number] Use three times daily per sliding scale up to 60 units daily [facility] ibuprofen (MOTRIN) 800 mg tablet 08-17 00:00: 00 05-17 00:00 :00 No 1{tbl} Take 1 tablet by mouth once now. [facility] S[facility] Bicarb-Sodi um Chloride (NEILMED SINUS RINSE COMPLETE) Pack 08-09 00:00: 00 05-09 00:00 :00 No Use as directed [facility] Sodium Bicarb-Sodi um Chloride (NEILMED SINUS RINSE COMPLETE) Pack 08-09 00:00: 00 05-09 00:00 :00 No Use as directed [facility] mupirocin (BACTROBAN) 2 % ointment 08-09 00:00: 00 09-05 00:00 :00 No Apply to inside of bilateral nose BID. [facility] HYDROcodone -acetaminop hen (NORCO 5) 5-325 mg tablet 08-06 00:00: 00 05-30 00:00 :00 No 1{tbl} Take 1 Tab by mouth as needed. [facility] enalapril (VASOTEC) 20 mg tablet 06-28 00:00: 00 09-06 00:00 :00 No 20mg Take 1 Tab by mouth 2 (two) times daily. [facility] BD ULTRAFINE III MINI PEN 31 x 3/16 " Ndle 2011-05 00:00: 00 06-06 00:00 :00 No USE 1 PEN NEEDLE TO CHECK GLUCOSE 4 TIMES DAILY [facility] diazepam (VALIUM) 2 mg tablet 08-31 00:00: 00 04-15 00:00 :00 No TAKE ONE-HALF TABLET BY MOUTH EVERY 6 TO 8 HOURS NEEDED FOR SEVERE VERTIGO [facility] meclizine (ANTIVERT) 12.5 mg tablet 05-30 00:00: 00 06-22 00:00 :00 No [id number] 12.5mg Take 1 Tab by mouth 3 (three) times daily as needed for Dizziness (may take two). [facility] metoclopram yudelka (REGLAN) 5 mg/5 mL solution 05-14 00:00: 00 05-30 00:00 :00 No [id number] 5mg Take 5 mL by mouth before meals as needed for Nausea and Vomiting. [facility] Immunizations Ordered Immunization Name Filled Immunization Name Date Status Comments Source TDAP 2015-05-22 00:00:00 Completed TDAP 2015-05-22 00:00:00 Completed [facility]AP 2015-05-22 00:00:00 Completed [facility]AP 2015-05-22 00:00:00 Completed TDAP 2015-05-22 00:00:00 Completed [facility] TDAP 2015-05-22 00:00:00 Completed [facility] TDAP 2015-05-22 00:00:00 Completed [facility] TDAP 2015-05-22 00:00:00 Completed [facility] TDAP 2015-05-22 00:00:00 Completed [facility] TDAP 2015-05-22 00:00:00 Completed [facility] TDAP 2015-05-22 00:00:00 Completed [facility] TDAP 2015-05-22 00:00:00 Completed [facility] TDAP 2015-05-22 00:00:00 Completed [facility] TDAP 2015-05-22 00:00:00 Completed [facility] TDAP 2015-05-22 00:00:00 Completed [facility] TDAP 2015-05-22 00:00:00 Completed [facility] TDAP 2015-05-22 00:00:00 Completed [facility] TDAP 2015-05-22 00:00:00 Completed [facility] TDAP 2015-05-22 00:00:00 Completed [facility] TDAP 2015-05-22 00:00:00 Completed [facility] TDAP 2015-05-22 00:00:00 Completed [facility] TDAP 2015-05-22 00:00:00 Completed [facility] TDAP 2015-05-22 00:00:00 Completed [facility] TDAP 2015-05-22 00:00:00 Completed [facility] TDAP 2015-05-22 00:00:00 Completed [facility] TDAP 2015-05-22 00:00:00 Completed [facility] TDAP 2015-05-22 00:00:00 Completed [facility] TDAP 2015-05-22 00:00:00 Completed [facility] TDAP 2015-05-22 00:00:00 Completed [facility] TDAP 2015-05-22 00:00:00 Completed [facility] TDAP 2015-05-22 00:00:00 Completed [facility] TDAP 2015-05-22 00:00:00 Completed [facility] TDAP 2015-05-22 00:00:00 Completed [facility] TDAP 2015-05-22 00:00:00 Completed [facility] TDAP 2015-05-22 00:00:00 Completed [facility] TDAP 2015-05-22 00:00:00 Completed [facility] TDAP 2015-05-22 00:00:00 Completed [facility] TDAP 2015-05-22 00:00:00 Completed [facility] TDAP 2015-05-22 00:00:00 Completed [facility] TDAP 2015-05-22 00:00:00 Completed [facility] TDAP 2015-05-22 00:00:00 Completed [facility] TDAP 2015-05-22 00:00:00 Completed [facility] TDAP 2015-05-22 00:00:00 Completed [facility] TDAP 2015-05-22 00:00:00 Completed [facility] TDAP 2015-05-22 00:00:00 Completed [facility] TDAP 2015-05-22 00:00:00 Completed [facility] TDAP 2015-05-22 00:00:00 Completed [facility] TDAP 2015-05-22 00:00:00 Completed [facility] TDAP 2015-05-22 00:00:00 Completed [facility] TDAP 2015-05-22 00:00:00 Completed [facility] TDAP 2015-05-22 00:00:00 Completed [facility] TDAP 2015-05-22 00:00:00 Completed [facility] TDAP 2015-05-22 00:00:00 Completed [facility] TDAP 2015-05-22 00:00:00 Completed [facility] TDAP 2015-05-22 00:00:00 Completed [facility] TDAP 2015-05-22 00:00:00 Completed [facility] TDAP 2015-05-22 00:00:00 Completed [facility] TDAP 2015-05-22 00:00:00 Completed [facility] TDAP 2015-05-22 00:00:00 Completed [facility] TDAP 2015-05-22 00:00:00 Completed [facility] TDAP 2015-05-22 00:00:00 Completed [facility] TDAP 2015-05-22 00:00:00 Completed [facility] TDAP 2015-05-22 00:00:00 Completed [facility] TDAP 2015-05-22 00:00:00 Completed [facility] TDAP 2015-05-22 00:00:00 Completed [facility] TDAP 2015-05-22 00:00:00 Completed [facility] TDAP 2015-05-22 00:00:00 Completed [facility] TDAP 2015-05-22 00:00:00 Completed [facility] TDAP 2015-05-22 00:00:00 Completed [facility] TDAP 2015-05-22 00:00:00 Completed [facility] TDAP 2015-05-22 00:00:00 Completed [facility] TDAP 2015-05-22 00:00:00 Completed [facility] TDAP 2015-05-22 00:00:00 Completed [facility] TDAP 2015-05-22 00:00:00 Completed [facility] TDAP 2015-05-22 00:00:00 Completed [facility] TDAP 2015-05-22 00:00:00 Completed [facility] TDAP 2015-05-22 00:00:00 Completed [facility] Influenza Virus Vaccine 2009-02-06 00:00:00 Completed [facility] Influenza Virus Vaccine 2009-02-06 00:00:00 Completed [facility] Influenza Virus Vaccine 2009-02-06 00:00:00 Completed [facility] Influenza Virus Vaccine 2009-02-06 00:00:00 Completed [facility] Influenza Virus Vaccine 2009-02-06 00:00:00 Completed [facility] Influenza Virus Vaccine 2009-02-06 00:00:00 Completed [facility] Influenza Virus Vaccine 2009-02-06 00:00:00 Completed [facility] Influenza Virus Vaccine 2009-02-06 00:00:00 Completed [facility] Influenza Virus Vaccine 2009-02-06 00:00:00 Completed [facility] Influenza Virus Vaccine 2009-02-06 00:00:00 Completed [facility] Influenza Virus Vaccine 2009-02-06 00:00:00 Completed [facility] Influenza Virus Vaccine 2009-02-06 00:00:00 Completed [facility] Influenza Virus Vaccine 2009-02-06 00:00:00 Completed [facility] Influenza Virus Vaccine 2009-02-06 00:00:00 Completed [facility] Influenza Virus Vaccine 2009-02-06 00:00:00 Completed [facility] Influenza Virus Vaccine 2009-02-06 00:00:00 Completed [facility] Influenza Virus Vaccine 2009-02-06 00:00:00 Completed [facility] Influenza Virus Vaccine 2009-02-06 00:00:00 Completed [facility] Influenza Virus Vaccine 2009-02-06 00:00:00 Completed [facility] Influenza Virus Vaccine 2009-02-06 00:00:00 Completed [facility] Influenza Virus Vaccine 2009-02-06 00:00:00 Completed [facility] Influenza Virus Vaccine 2009-02-06 00:00:00 Completed [facility] Influenza Virus Vaccine 2009-02-06 00:00:00 Completed [facility] Influenza Virus Vaccine 2009-02-06 00:00:00 Completed [facility] Influenza Virus Vaccine 2009-02-06 00:00:00 Completed [facility] Influenza Virus Vaccine 2009-02-06 00:00:00 Completed [facility] Influenza Virus Vaccine 2009-02-06 00:00:00 Completed [facility] Influenza Virus Vaccine 2009-02-06 00:00:00 Completed [facility] Influenza Virus Vaccine 2009-02-06 00:00:00 Completed [facility] Influenza Virus Vaccine 2009-02-06 00:00:00 Completed [facility] Influenza Virus Vaccine 2009-02-06 00:00:00 Completed [facility] Influenza Virus Vaccine 2009-02-06 00:00:00 Completed [facility] Influenza Virus Vaccine 2009-02-06 00:00:00 Completed [facility] Influenza Virus Vaccine 2009-02-06 00:00:00 Completed [facility] Influenza Virus Vaccine 2009-02-06 00:00:00 Completed [facility] Influenza Virus Vaccine 2009-02-06 00:00:00 Completed [facility] Influenza Virus Vaccine 2009-02-06 00:00:00 Completed [facility] Influenza Virus Vaccine 2009-02-06 00:00:00 Completed [facility] Influenza Virus Vaccine 2009-02-06 00:00:00 Completed [facility] Influenza Virus Vaccine 2009-02-06 00:00:00 Completed [facility] Influenza Virus Vaccine 2009-02-06 00:00:00 Completed [facility] Influenza Virus Vaccine 2009-02-06 00:00:00 Completed [facility] Influenza Virus Vaccine 2009-02-06 00:00:00 Completed [facility] Influenza Virus Vaccine 2009-02-06 00:00:00 Completed [facility] Influenza Virus Vaccine 2009-02-06 00:00:00 Completed [facility] Influenza Virus Vaccine 2009-02-06 00:00:00 Completed [facility] Influenza Virus Vaccine 2009-02-06 00:00:00 Completed [facility] Influenza Virus Vaccine 2009-02-06 00:00:00 Completed [facility] Influenza Virus Vaccine 2009-02-06 00:00:00 Completed [facility] Influenza Virus Vaccine 2009-02-06 00:00:00 Completed [facility] Influenza Virus Vaccine 2009-02-06 00:00:00 Completed [facility] Influenza Virus Vaccine 2009-02-06 00:00:00 Completed [facility] Influenza Virus Vaccine 2009-02-06 00:00:00 Completed [facility] Influenza Virus Vaccine 2009-02-06 00:00:00 Completed [facility] Influenza Virus Vaccine 2009-02-06 00:00:00 Completed [facility] Influenza Virus Vaccine 2009-02-06 00:00:00 Completed [facility] Influenza Virus Vaccine 2009-02-06 00:00:00 Completed [facility] Influenza Virus Vaccine 2009-02-06 00:00:00 Completed [facility] Influenza Virus Vaccine 2009-02-06 00:00:00 Completed [facility] Influenza Virus Vaccine 2009-02-06 00:00:00 Completed [facility] Influenza Virus Vaccine 2009-02-06 00:00:00 Completed [facility] Influenza Virus Vaccine 2009-02-06 00:00:00 Completed [facility] Influenza Virus Vaccine 2009-02-06 00:00:00 Completed [facility] Influenza Virus Vaccine 2009-02-06 00:00:00 Completed [facility] Influenza Virus Vaccine 2009-02-06 00:00:00 Completed [facility] Influenza Virus Vaccine 2009-02-06 00:00:00 Completed [facility] Influenza Virus Vaccine 2009-02-06 00:00:00 Completed [facility] Influenza Virus Vaccine 2009-02-06 00:00:00 Completed [facility] Influenza Virus Vaccine 2009-02-06 00:00:00 Completed [facility] Influenza Virus Vaccine 2009-02-06 00:00:00 Completed [facility] Influenza Virus Vaccine 2009-02-06 00:00:00 Completed [facility] Influenza Virus Vaccine 2009-02-06 00:00:00 Completed [facility] Influenza Virus Vaccine 2009-02-06 00:00:00 Completed [facility] Influenza Virus Vaccine 2009-02-06 00:00:00 Completed [facility] Influenza Virus Vaccine 2009-02-06 00:00:00 Completed [facility] Influenza Virus Vaccine 2009-02-06 00:00:00 Completed [facility] Influenza Virus Vaccine 2009-02-06 00:00:00 Completed [facility] Influenza Virus Vaccine 2009-02-06 00:00:00 Completed [facility] Influenza Virus Vaccine Unknown Completed [facility] TDAP Unknown Completed [facility] Influenza Virus Vacc[facility] Unknown Completed [facility] TDAP Unknown Completed [facility] Influenza Virus Vacc[facility] Unknown Completed [facility] TDAP Unknown Completed [facility] Influenza Virus Vacc[facility] Unknown Completed [facility] TDAP Unknown Completed [facility] Influenza Virus Vacc[facility] Unknown Completed [facility] TDAP Unknown Completed [facility] Influenza Virus Vacc[facility] Unknown Completed [facility] TDAP Unknown Completed [facility] Influenza Virus Vacc[facility] Unknown Completed [facility] TDAP Unknown Completed [facility] Influenza Virus Vacc[facility] Unknown Completed [facility] TDAP Unknown Completed [facility] Influenza Virus Vacc[facility] Unknown Completed [facility] TDAP Unknown Completed [facility] Influenza Virus Vacc[facility] Unknown Completed [facility] TDAP Unknown Completed [facility] Influenza Virus Vacc[facility] Unknown Completed [facility] TDAP Unknown Completed [facility] Influenza Virus Vacc[facility] Unknown Completed [facility] TDAP Unknown Completed [facility] Influenza Virus Vacc[facility] Unknown Completed [facility] TDAP Unknown Completed [facility] Influenza Virus Vacc[facility] Unknown Completed [facility] TDAP Unknown Completed [facility] Influenza Virus Vacc[facility] Unknown Completed [facility] TDAP Unknown Completed [facility] Influenza Virus Vacc[facility] Unknown Completed [facility] TDAP Unknown Completed [facility] Influenza Virus Vacc[facility] Unknown Completed [facility] TDAP Unknown Completed [facility] Influenza Virus Vacc[facility] Unknown Completed [facility] TDAP Unknown Completed [facility] Influenza Virus Vacc[facility] Unknown Completed [facility] TDAP Unknown Completed [facility] Influenza Virus Vacc[facility] Unknown Completed [facility] TDAP Unknown Completed [facility] Influenza Virus Vacc[facility] Unknown Completed [facility] TDAP Unknown Completed [facility] Influenza Virus Vacc[facility] Unknown Completed [facility] TDAP Unknown Completed [facility] Influenza Virus Vacc[facility] Unknown Completed [facility] TDAP Unknown Completed [facility] Influenza Virus Vacc[facility] Unknown Completed [facility] TDAP Unknown Completed [facility] Influenza Virus Vacc[facility] Unknown Completed [facility] TDAP Unknown Completed [facility] Influenza Virus Vacc[facility] Unknown Completed [facility] TDAP Unknown Completed [facility] Influenza Virus Vacc[facility] Unknown Completed [facility] TDAP Unknown Completed [facility] Influenza Virus Vacc[facility] Unknown Completed [facility] TDAP Unknown Completed [facility] Influenza Virus Vacc[facility] Unknown Completed [facility] TDAP Unknown Completed [facility] Influenza Virus Vacc[facility] Unknown Completed [facility] TDAP Unknown Completed [facility] Influenza Virus Vacc[facility] Unknown Completed [facility] TDAP Unknown Completed [facility] Influenza Virus Vacc[facility] Unknown Completed [facility] TDAP Unknown Completed [facility] Influenza Virus Vacc[facility] Unknown Completed [facility] TDAP Unknown Completed [facility] Influenza Virus Vacc[facility] Unknown Completed [facility] TDAP Unknown Completed [facility] Influenza Virus Vacc[facility] Unknown Completed [facility] TDAP Unknown Completed [facility] Influenza Virus Vacc[facility] Unknown Completed [facility] TDAP Unknown Completed [facility] Influenza Virus Vacc[facility] Unknown Completed [facility] TDAP Unknown Completed [facility] Influenza Virus Vacc[facility] Unknown Completed [facility] TDAP Unknown Completed [facility] Influenza Virus Vacc[facility] Unknown Completed [facility] TDAP Unknown Completed [facility] Influenza Virus Vacc[facility] Unknown Completed [facility] TDAP Unknown Completed [facility] Influenza Virus Vacc[facility] Unknown Completed [facility] TDAP Unknown Completed [facility] Influenza Virus Vacc[facility] Unknown Completed [facility] TDAP Unknown Completed [facility] Influenza Virus Vacc[facility] Unknown Completed [facility] TDAP Unknown Completed [facility] Influenza Virus Vacc[facility] Unknown Completed [facility] TDAP Unknown Completed [facility] Influenza Virus Vacc[facility] Unknown Completed [facility] TDAP Unknown Completed [facility] Influenza Virus Vacc[facility] Unknown Completed [facility] TDAP Unknown Completed [facility] Influenza Virus Vacc[facility] Unknown Completed [facility] TDAP Unknown Completed [facility] Influenza Virus Vacc[facility] Unknown Completed [facility] TDAP Unknown Completed [facility] Influenza Virus Vacc[facility] Unknown Completed [facility] TDAP Unknown Completed [facility] Influenza Virus Vacc[facility] Unknown Completed [facility] TDAP Unknown Completed [facility] Influenza Virus Vacc[facility] Unknown Completed [facility] TDAP Unknown Completed [facility] Influenza Virus Vacc[facility] Unknown Completed [facility] TDAP Unknown Completed [facility] Influenza Virus Vacc[facility] Unknown Completed [facility] TDAP Unknown Completed [facility] Influenza Virus Vacc[facility] Unknown Completed [facility] TDAP Unknown Completed [facility] Influenza Virus Vacc[facility] Unknown Completed [facility] TDAP Unknown Completed [facility] Influenza Virus Vacc[facility] Unknown Completed [facility] TDAP Unknown Completed [facility] Influenza Virus Vacc[facility] Unknown Completed [facility] TDAP Unknown Completed [facility] Influenza Virus Vacc[facility] Unknown Completed [facility] TDAP Unknown Completed [facility] Influenza Virus Vacc[facility] Unknown Completed [facility] TDAP Unknown Completed [facility] Influenza Virus Vacc[facility] Unknown Completed [facility] TDAP Unknown Completed [facility] Influenza Virus Vacc[facility] Unknown Completed [facility] TDAP Unknown Completed [facility] Influenza Virus Vacc[facility] Unknown Completed [facility] TDAP Unknown Completed [facility] Influenza Virus Vacc[facility] Unknown Completed [facility] TDAP Unknown Completed [facility] Influenza Virus Vacc[facility] Unknown Completed [facility] TDAP Unknown Completed [facility] Influenza Virus Vacc[facility] Unknown Completed [facility] TDAP Unknown Completed [facility] Influenza Virus Vacc[facility] Unknown Completed [facility] TDAP Unknown Completed [facility] Influenza Virus Vacc[facility] Unknown Completed [facility] TDAP Unknown Completed [facility] Influenza Virus Vacc[facility] Unknown Completed [facility] TDAP Unknown Completed [facility] Influenza Virus Vacc[facility] Unknown Completed [facility] TDAP Unknown Completed [facility] Influenza Virus Vacc[facility] Unknown Completed [facility] TDAP Unknown Completed [facility] Influenza Virus Vacc[facility] Unknown Completed [facility] TDAP Unknown Completed [facility] Influenza Virus Vacc[facility] Unknown Completed [facility] TDAP Unknown Completed [facility] Influenza Virus Vacc[facility] Unknown Completed [facility] TDAP Unknown Completed [facility] Influenza Virus Vacc[facility] Unknown Completed [facility] TDAP Unknown Completed [facility] Influenza Virus Vacc[facility] Unknown Completed [facility] TDAP Unknown Completed [facility] Influenza Virus Vacc[facility] Unknown Completed [facility] TDAP Unknown Completed [facility] Influenza Virus Vacc[facility] Unknown Completed [facility] TDAP Unknown Completed [facility] Influenza Virus Vacc[facility] Unknown Completed [facility] TDAP Unknown Completed [facility] Influenza Virus Vacc[facility] Unknown Completed [facility] TDAP Unknown Completed [facility] Influenza Virus Vacc[facility] Unknown Completed [facility] TDAP Unknown Completed [facility] Influenza Virus Vacc[facility] Unknown Completed [facility] TDAP Unknown Completed [facility] Influenza Virus Vacc[facility] Unknown Completed [facility] TDAP Unknown Completed [facility] Influenza Virus Vacc[facility] Unknown Completed [facility] TDAP Unknown Completed [facility] Influenza Virus Vacc[facility] Unknown Completed [facility] TDAP Unknown Completed [facility] Influenza Virus Vacc[facility] Unknown Completed [facility] TDAP Unknown Completed [facility] Influenza Virus Vacc[facility] Unknown Completed [facility] TDAP Unknown Completed [facility] Influenza Virus Vacc[facility] Unknown Completed [facility] TDAP Unknown Completed [facility] Influenza Virus Vacc[facility] Unknown Completed [facility] TDAP Unknown Completed [facility] Influenza Virus Vaccine Unknown Completed [facility] TDAP Unknown Completed [facility] Vital Signs Vital Name Observation Time Observation Value Comments S deniace Body height 2024-12-15 15:53:[address] [facility] Body weight 2024-12-15 15:53:[address] [facility] BMI 2024-12-15 15:53:00 34.94 kg/m2 [facility] Body weight 2024-12-08 13:40:00 78[facility] BMI 2024-12-08 13:40:00 34.94 kg/m2 [facility] Systolic blood pressure 2024-11-18 16:49:00 128 mm[Hg] [facility] Diastolic blood pressure 2024-11-18 16:49:00 76 mm[Hg] [facility] Heart rate 2024-11-18 16:49:00 85 /min [facility] Respiratory rate 2024-11-18 16:49:00 18 /min [facility] Body height 2024-11-18 16:49:00 [facility] [facility] Body weight 2024-11-18 16:49:00 78.472 kg [facility] BMI 2024-11-18 16:49:00 34.94 kg/m2 [facility] Oxygen saturation in Arterial blood by Pulse oximetry 2024-11-18 16:49:00 95 /min [facility] Body weight 2024-11-03 14:13:[address] [facility] BMI 2024-11-03 14:13:00 34.54 kg/m2 [facility] Body weight 2024-09-08 14:06:[address] [facility] BMI 2024-09-08 14:06:00 34.54 kg/m2 [facility] Systolic blood pressure 2024-08-17 15:50:00 127 mm[Hg] [facility] Diastolic blood pressure 2024-08-17 15:50:00 80 mm[Hg] [facility] Heart rate 2024-08-17 15:50:00 88 /min [facility] Body temperature 2024-08-17 15:50:00 36.22 Caroline [facility] Body height 2024-08-17 15:50:00 149.9 cm [facility] Body weight 2024-08-17 15:50:00 77.565 kg [facility] BMI 2024-08-17 15:50:00 34.54 kg/m2 [facility] Oxygen saturation in Arterial blood by Pulse oximetry 2024-08-17 15:50:00 97 /min [facility] Systolic blood pressure 2024-05-11 19:13:00 130 mm[Hg] [facility] Diastolic blood pressure 2024-05-11 19:13:00 82 mm[Hg] [facility] Heart rate 2024-05-11 19:13:00 70 /min [facility] Body temperature 2024-05-11 19:13:00 36.22 Caroline [facility] Body height 2024-05-11 19:13:00 149.9 cm [facility] Body weight 2024-05-11 19:13:[address] [facility] BMI 2024-05-11 19:13:00 35.35 kg/m2 [facility] Oxygen saturation in Arterial blood by Pulse oximetry 2024-05-11 19:13:00 98 /min [facility] Body weight 2024-04-28 15:09:[address] [facility] BMI 2024-04-28 15:09:00 35.35 kg/m2 [facility] Systolic blood pressure 2024-04-22 16:42:00 133 mm[Hg] [facility] Diastolic blood pressure 2024-04-22 16:42:00 61 mm[Hg] [facility] Heart rate 2024-04-22 16:42:00 76 /min Un[facility] Respiratory rate 2024-04-22 16:42:00 18 /min [facility] Body height 2024-04-22 16:42:00 149.9 cm [facility] Body weight 2024-04-22 16:42:[address] [facility] BMI 2024-04-22 16:42:00 35.36 kg/m2 [facility] Oxygen saturation in Arterial blood by Pulse oximetry 2024-04-22 16:42:00 99 /min [facility] Body weight 2024-02-04 14:29:[address] [facility] BMI 2024-02-04 14:29:00 34.54 kg/m2 [facility] Systolic blood pressure 2024-01-06 20:16:00 141 mm[Hg] [facility] Diastolic blood pressure 2024-01-06 20:16:00 71 mm[Hg] [facility] Heart rate 2024-01-06 20:16:00 80 /min [facility] Respiratory rate 2024-01-06 20:14:00 17 /min [facility] Body height 2024-01-06 20:14:[address] [facility] Body weight 2024-01-06 20:14:00 77.565 kg [facility] BMI 2024-01-06 20:14:00 34.54 kg/m2 [facility] Oxygen saturation in Arterial blood by Pulse oximetry 2024-01-06 20:14:00 100 /min [facility] Body weight 2023-12-31 13:55:00 76.204 kg [facility] BMI 2023-12-31 13:55:00 33.93 kg/m2 [facility] Systolic blood pressure 2023-12-30 20:57:00 117 mm[Hg] [facility] Diastolic blood pressure 2023-12-30 20:57:00 67 mm[Hg] [facility] Heart rate 2023-12-30 20:57:00 75 /min [facility] Body temperature 2023-12-30 20:57:00 36.17 Caroline [facility] Respiratory rate 2023-12-30 20:57:00 18 /min [facility] Body height 2023-12-30 20:57:[address] [facility] Body weight 2023-12-30 20:57:[address] [facility] BMI 2023-12-30 20:57:00 34.07 kg/m2 [facility] Oxygen saturation in Arterial blood by Pulse oximetry 2023-12-30 20:57:00 88 /min [facility] Body weight 2023-12-03 15:42:[address] [facility] BMI 2023-12-03 15:42:00 33.53 kg/m2 [facility] Systolic blood pressure 2023-11-06 18:41:00 125 mm[Hg] [facility] Diastolic blood pressure 2023-11-06 18:41:00 56 mm[Hg] [facility] Heart rate 2023-11-06 18:41:00 80 /min Un[facility] Body temperature 2023-11-06 18:41:00 36.78 Caroline [facility] Respiratory rate 2023-11-06 18:41:00 18 /min [facility] Body height 2023-11-06 18:41:[address] [facility] Body weight 2023-11-06 18:41:[address] [facility] BMI 2023-11-06 18:41:00 33.59 kg/m2 [facility] Oxygen saturation in Arterial blood by Pulse oximetry 2023-11-06 18:41:00 97 /min [facility] Systolic blood pressure 2023-11-06 18:43:00 125 mm[Hg] [facility] Diastolic blood pressure 2023-11-06 18:43:00 56 mm[Hg] [facility] Heart rate 2023-11-06 18:43:00 80 /min [facility] Body temperature 2023-11-06 18:43:00 36.78 Caroline [facility] Respiratory rate 2023-11-06 18:43:00 18 /min [facility] Body height 2023-11-06 18:43:[address] [facility] Body weight 2023-11-06 18:43:[address] [facility] BMI 2023-11-06 18:43:00 33.59 kg/m2 [facility] Oxygen saturation in Arterial blood by Pulse oximetry 2023-11-06 18:43:00 97 /min [facility] Body weight 2023-10-29 15:20:00 76.658 kg [facility] BMI 2023-10-29 15:20:00 34.13 kg/m2 [facility] Body weight 2023-10-01 18:06:[address] [facility] BMI 2023-10-01 18:06:00 34.13 kg/m2 [facility] Systolic blood pressure 2023-09-18 16:25:00 121 mm[Hg] [facility] Diastolic blood pressure 2023-09-18 16:25:00 55 mm[Hg] [facility] Heart rate 2023-09-18 16:25:00 70 /min [facility] Body height 2023-09-18 16:25:00 149.9 cm [facility] Body weight 2023-09-18 16:25:00 76.749 kg [facility] BMI 2023-09-18 16:25:00 34.17 kg/m2 [facility] Oxygen saturation in Arterial blood by Pulse oximetry 2023-09-18 16:25:00 98 /min [facility] Systolic blood pressure 2023-07-29 20:48:00 138 mm[Hg] [facility] Diastolic blood pressure 2023-07-29 20:48:00 67 mm[Hg] [facility] Heart rate 2023-07-29 20:48:00 79 /min Unive [facility] Body temperature 2023-07-29 20:48:00 36.44 Caroline [facility] Body height 2023-07-29 20:48:[address] [facility] Body weight 2023-07-29 20:48:00 72.938 kg [facility] BMI 2023-07-29 20:48:00 32.48 kg/m2 [facility] Oxygen saturation in Arterial blood by Pulse oximetry 2023-07-29 20:48:00 95 /min [facility] Body weight 2023-07-09 16:24:00 73.029 kg [facility] BMI 2023-07-09 16:24:00 31.44 [facility] Body weight 2023-06-04 21:21:00 73.029 kg [facility] BMI 2023-06-04 21:21:00 31.44 kg/m2 [facility] Body weight 2023-05-14 14:54:00 73.029 kg [facility] BMI 2023-05-14 14:54:00 31.44 kg/m2 [facility] Systolic blood pressure 2023-03-20 16:31:00 135 mm[Hg] [facility] Diastolic blood pressure 2023-03-20 16:31:00 85 mm[Hg] [facility] Heart rate 2023-03-20 16:31:00 81 /min [facility] Respiratory rate 2023-03-20 16:31:00 18 /min [facility] Body height 2023-03-20 16:31:00 152.4 cm [facility] Body weight 2023-03-20 16:31:00 73.437 kg [facility] BMI 2023-03-20 16:31:00 31.62 kg/m2 [facility] Oxygen saturation in Arterial blood by Pulse oximetry 2023-03-20 16:31:00 98 /min [facility] Body weight 2023-01-15 13:35:00 74.844 kg [facility] BMI 2023-01-15 13:35:00 33.33 kg/m2 [facility] Systolic blood pressure 2023-01-13 13:49:00 132 mm[Hg] [facility] Diastolic blood pressure 2023-01-13 13:49:00 61 mm[Hg] [facility] Heart rate 2023-01-13 13:49:00 86 /min [facility] Body temperature 2023-01-13 13:49:00 36.17 Caroline [facility] Respiratory rate 2023-01-13 13:49:00 16 /min [facility] Body height 2023-01-13 13:49:00 149.9 cm [facility] Body weight 2023-01-13 13:49:00 75.116 kg [facility] BMI 2023-01-13 13:49:00 33.45 kg/m2 [facility] Oxygen saturation in Arterial blood by Pulse oximetry 2023-01-13 13:49:00 97 /min [facility] Body weight 2022-10-16 13:49:00 75.751 kg [facility] BMI 2022-10-16 13:49:00 33.73 kg/m2 [facility] Systolic blood pressure 2022-09-03 20:03:00 121 mm[Hg] [facility] Diastolic blood pressure 2022-09-03 20:03:00 64 mm[Hg] [facility] Heart rate 2022-09-03 20:03:00 78 /min Unive [facility] Body height 2022-09-03 20:03:00 149.9 cm [facility] Body weight 2022-09-03 20:03:[address] [facility] BMI 2022-09-03 20:03:00 33.81 kg/m2 [facility] Oxygen saturation in Arterial blood by Pulse oximetry 2022-09-03 20:03:00 95 /min [facility] Systolic blood pressure 2022-09-03 18:06:00 117 mm[Hg] [facility] Diastolic blood pressure 2022-09-03 18:06:00 68 mm[Hg] [facility] Heart rate 2022-09-03 18:06:00 80 /min [facility] Respiratory rate 2022-09-03 18:06:00 18 /min [facility] Body height 2022-09-03 18:06:00 152.4 cm [facility] Body weight 2022-09-03 18:06:00 75.751 kg [facility] BMI 2022-09-03 18:06:00 32.61 kg/m2 [facility] Oxygen saturation in Arterial blood by Pulse oximetry 2022-09-03 18:06:00 97 /min [facility] Systolic blood pressure 2022-09-03 18:08:00 117 mm[Hg] [facility] Diastolic blood pressure 2022-09-03 18:08:00 68 mm[Hg] [facility] Heart rate 2022-09-03 18:08:00 80 /min [facility] Respiratory rate 2022-09-03 18:08:00 18 /min [facility] Body height 2022-09-03 18:08:00 152.4 cm [facility] Body weight 2022-09-03 18:08:00 75.751 kg [facility] BMI 2022-09-03 18:08:00 32.61 kg/m2 [facility] Oxygen saturation in Arterial blood by Pulse oximetry 2022-09-03 18:08:00 97 /min [facility] Systolic blood pressure 2022-08-22 19:48:00 127 mm[Hg] [facility] Diastolic blood pressure 2022-08-22 19:48:00 78 mm[Hg] [facility] Heart rate 2022-08-22 19:48:00 88 /min [facility] Body height 2022-08-22 19:48:00 152.4 cm [facility] Body weight 2022-08-22 19:48:00 76.204 kg [facility] BMI 2022-08-22 19:48:00 32.81 kg/m2 [facility] Oxygen saturation in Arterial blood by Pulse oximetry 2022-08-22 19:48:00 97 /min [facility] Body weight 2022-07-10 14:44:[address] [facility] BMI 2022-07-10 14:44:00 33.93 kg/m2 [facility] Systolic blood pressure 2022-04-23 20:39:00 132 mm[Hg] [facility] Diastolic blood pressure 2022-04-23 20:39:00 77 mm[Hg] [facility] Heart rate 2022-04-23 20:39:00 75 /min Un[facility] Body temperature 2022-04-23 20:39:00 36.44 Caroline [facility] Respiratory rate 2022-04-23 20:39:00 18 /min [facility] Body height 2022-04-23 20:39:00 149.9 cm [facility] Body weight 2022-04-23 20:39:[address] [facility] BMI 2022-04-23 20:39:00 33.99 kg/m2 [facility] Oxygen saturation in Arterial blood by Pulse oximetry 2022-04-23 20:39:00 98 /min [facility] Systolic blood pressure 2022-04-11 21:45:00 151 mm[Hg] [facility] Diastolic blood pressure 2022-04-11 21:45:00 71 mm[Hg] [facility] Heart rate 2022-04-11 21:45:00 79 /min Un[facility] Oxygen saturation in Arterial blood by Pulse oximetry 2022-04-11 21:45:00 97 /min [facility] Respiratory rate 2022-04-11 20:10:00 12 /min [facility] Body temperature 2022-04-11 17:25:00 36.72 Caroline [facility] Body height 2022-04-11 17:25:00 149.9 cm [facility] Body weight 2022-04-11 17:25:00 76.658 kg [facility] BMI 2022-04-11 17:25:00 34.13 kg/m2 [facility] Body weight 2022-04-03 15:03:00 76.658 kg [facility] BMI 2022-04-03 15:03:00 34.13 kg/m2 [facility] Systolic blood pressure 2022-03-31 19:14:00 135 mm[Hg] [facility] Diastolic blood pressure 2022-03-31 19:14:00 76 mm[Hg] [facility] Heart rate 2022-03-31 19:14:00 84 /min Un[facility] Body height 2022-03-31 19:14:00 149.9 cm [facility] Body weight 2022-03-31 19:14:00 76.975 kg [facility] BMI 2022-03-31 19:14:00 34.28 kg/m2 [facility] Body height 2022-03-10 14:55:00 149.9 cm [facility] Body weight 2022-03-10 14:55:00 77.338 kg [facility] BMI 2022-03-10 14:55:00 34.44 kg/m2 [facility] Systolic blood pressure 2022-03-03 18:04:00 104 mm[Hg] [facility] Diastolic blood pressure 2022-03-03 18:04:00 57 mm[Hg] [facility] Heart rate 2022-03-03 18:04:00 72 /min [facility] Body temperature 2022-03-03 18:04:00 36.56 Caroline [facility] Body height 2022-03-03 18:04:00 149.9 cm [facility] Body weight 2022-03-03 18:04:00 76.068 kg [facility] BMI 2022-03-03 18:04:00 33.87 kg/m2 [facility] Oxygen saturation in Arterial blood by Pulse oximetry 2022-03-03 18:04:00 96 /min [facility] Systolic blood pressure 2022-02-14 20:25:00 126 mm[Hg] [facility] Diastolic blood pressure 2022-02-14 20:25:00 76 mm[Hg] [facility] Heart rate 2022-02-14 20:25:00 75 /min [facility] Body weight 2022-02-14 20:25:00 77.021 kg [facility] BMI 2022-02-14 20:25:00 34.30 kg/m2 [facility] Oxygen saturation in Arterial blood by Pulse oximetry 2022-02-14 20:25:00 96 /min [facility] Systolic blood pressure 2022-02-10 19:21:00 122 mm[Hg] [facility] Diastolic blood pressure 2022-02-10 19:21:00 70 mm[Hg] [facility] Heart rate 2022-02-10 19:21:00 67 /min [facility] Body weight 2022-02-10 19:21:[address] [facility] BMI 2022-02-10 19:21:00 33.93 kg/m2 [facility] Oxygen saturation in Arterial blood by Pulse oximetry 2022-02-10 19:21:00 99 /min [facility] Body weight 2022-01-30 13:53:[address] [facility] BMI 2022-01-30 13:53:00 34.13 kg/m2 [facility] Systolic blood pressure 2022-01-17 15:29:00 140 mm[Hg] [facility] Diastolic blood pressure 2022-01-17 15:29:00 72 mm[Hg] [facility] Heart rate 2022-01-17 15:29:00 86 /min Un[facility] Oxygen saturation in Arterial blood by Pulse oximetry 2022-01-17 15:29:00 99 /min [facility] Respiratory rate 2022-01-17 15:26:00 18 /min [facility] Body temperature 2022-01-17 15:22:00 36.78 Caroline [facility] Body weight 2022-01-17 15:22:[address] [facility] BMI 2022-01-17 15:22:00 34.30 kg/m2 [facility] Systolic blood pressure 2022-01-17 13:46:00 119 mm[Hg] [facility] Diastolic blood pressure 2022-01-17 13:46:00 74 mm[Hg] [facility] Heart rate 2022-01-17 13:46:00 84 /min Un[facility] Body temperature 2022-01-17 13:46:00 36.22 Caroline [facility] Respiratory rate 2022-01-17 13:46:00 18 /min [facility] Body height 2022-01-17 13:46:00 149.9 cm [facility] Body weight 2022-01-17 13:46:00 76.794 kg [facility] BMI 2022-01-17 13:46:00 34.19 kg/m2 [facility] Oxygen saturation in Arterial blood by Pulse oximetry 2022-01-17 13:46:00 98 /min [facility] Procedures Procedure Date / Time Performed Performing Clinician Source INTRAVITREAL INJECTION, PHARMACOLOGIC AGENT - OS - LEFT EYE 2024-12-15 16:32:32 Royce Hernández [facility] OCT, RETINA - OU - BOTH EYES 2024-12-08 14:31:21 Royce Hernández [facility] DIABETES TESTING REPORTS 2024-11-28 21:10:44 Doc tor Unassigned, [place] [facility] POCT HEMOGLOBIN A1C TEST 2024-11-18 17:03:00 Magnus Martin [facility] OCT, RETINA - OU - BOTH EYES 2024-11-03 15:58:16 Royce Hernández [facility] OCT, RETINA - OU - BOTH EYES 2024-09-08 14:46:13 Royce Hernández [facility] COLOR FUNDUS PHOTOGRAPHY - OU - BOTH EYES 2024-07-07 15:53:59 Campos Siddiqui [facility] OCT, RETINA - OU - BOTH EYES 2024-07-07 15:15:18 Royce Hernández [facility] DME/SUPPLY JUSTIFICATION 2024-06-20 16:25:55 Doc tor Unassigned, [place] [facility] FREE T4 2024-05-11 20:15:00 Rajni Momin [facility] THYROID STIMULATING HORMONE 2024-05-11 20:15:00 Rajni Momin [facility] COMP. METABOLIC PANEL (85468) 2024-05-11 20:15:00 Rajni Momin [facility] LIPID PANEL (74987)(TOTAL CHOLESTEROL, TRIGLYCERIDES, HDL) 2024-05-11 20:15:00 Rajni Momin [facility] CBC WITH DIFF 2024-05-11 20:15:00 Rajni Momin [facility] GLYCOSYLATED HEMOGLOBIN (A1C) 2024-05-11 20:15:00 Rajni Momin [facility] VITAMIN D, 25-OH 2024-05-11 20:15:00 Rajni Momin [facility] FREE T3 2024-05-11 20:15:00 Rajni Momin [facility] OCT, RETINA - OU - BOTH EYES 2024-04-28 16:13:58 Royce Hernández [facility] POCT HEMOGLOBIN A1C TEST 2024-04-22 16:54:00 Magnus Martin [facility] OCT, RETINA - OU - BOTH EYES 2024-02-04 15:12:18 Royce Hernández [facility] OCT, RETINA - OU - BOTH EYES 2023-12-31 14:33:02 Royce Hernández [facility] DME/SUPPLY JUSTIFICATION 2023-12-29 16:03:32 Doc tor Unassigned, [place] [facility] OCT, RETINA - OU - BOTH EYES 2023-12-03 16:21:47 Royce Hernández [facility] INTRAVITREAL INJECTION, PHARMACOLOGIC AGENT - OS - LEFT EYE 2023-12-03 16:19:53 Royce Hernández [facility] FREE T4 2023-11-06 20:00:00 Rajni Momin [facility] THYROID STIMULATING HORMONE 2023-11-06 20:00:00 Anastasiya [facility] COMP. METABOLIC PANEL (66046) 2023-11-06 20:00:00 Anastasiya [facility] LIPID PANEL (11615)(TOTAL CHOLESTEROL, TRIGLYCERIDES, HDL) 2023-11-06 20:00:00 Rajni Momin [facility] CBC WITH DIFF 2023-11-06 20:00:00 Rajni Momin [facility] GLYCOSYLATED HEMOGLOBIN (A1C) 2023-11-06 20:00:00 Rajni Momin [facility] VITAMIN D, 25-[place] 2023-11-06 20:00:00 Rajni Momin [facility] FREE T3 2023-11-06 20:00:00 Rajni Momin [facility] OCT, RETINA - OU - BOTH EYES 2023-10-29 15:59:36 Royce Hernández [facility] INTRAVITREAL INJECTION, PHARMACOLOGIC AGENT - OS - LEFT EYE 2023-10-29 15:58:35 Royce Hernández [facility] HOME HEALTH - OTHER 2023-10-06 17:26:51 Doctor Johnny sullivan, [place] [facility] OCT, RETINA - OU - BOTH EYES 2023-10-01 18:29:49 Royce Hernández [facility] INTRAVITREAL INJECTION, PHARMACOLOGIC AGENT - OS - LEFT EYE 2023-10-01 18:27:55 Royce Hernández [facility] OCT, RETINA - OU - BOTH EYES 2023-09-10 15:28:02 Royce Hernández [facility] HEALTH - OTHER 2023-08-24 18:28:20 Doctor Johnny sullivan, [place] [facility] OCT, RETINA - OU - BOTH EYES 2023-08-13 17:32:34 Royce Hernández [facility] INTRAVITREAL INJECTION, PHARMACOLOGIC AGENT - OS - LEFT EYE 2023-08-13 17:31:36 Royce Hernández [facility] MR LUMBAR SPINE WO CONTRAST 2023-08-05 15:57:49 Rajni Momin [facility] OCT, RETINA - OU - BOTH EYES 2023-07-09 17:11:52 Royce Hernández [facility] INTRAVITREAL INJECTION, PHARMACOLOGIC AGENT - OS - LEFT EYE 2023-07-09 16:59:12 Royce Hernández [facility] DISCLOSURE AND CONSENT, MEDICAL AND SURGICAL PROCEDURES 2023-07-09 06:01:00 Doctor Unassigned, [place] [facility] OCT, RETINA - OU - BOTH EYES 2023-06-04 21:34:11 Royce Hernández [facility] INTRAVITREAL INJECTION, PHARMACOLOGIC AGENT - OS - LEFT EYE 2023-06-04 21:33:21 Royce Hernández [facility] DISCLOSURE AND CONSENT, MEDICAL AND SURGICAL PROCEDURES 2023-06-04 06:01:00 Doctor Unassigned, [place] [facility] OCT, RETINA - OU - BOTH EYES 2023-05-14 15:53:41 Royce Hernández [facility] PATIENT QUESTIONNAIRE 2023-03-20 06:01:00 Doctor Unassigned, [place] [facility] MEDICATION CORRESPONDENCE 2023-02-11 05:01:00 Do ctor Unassigned, [place] [facility] OCT, RETINA - OU - BOTH EYES 2023-01-15 14:38:04 Royce Hernández [facility] DME/SUPPLY JUSTIFICATION 2022-12-08 05:01:00 Doc rancho Unassigned, [place] [facility] OCT, RETINA - OU - BOTH EYES 2022-10-16 14:36:56 Royce Hernández [facility] HOME HEALTH - OTHER 2022-10-09 05:01:00 Doctor Johnny sullivan, [place] [facility] HOME HEALTH - OTHER 2022-10-02 05:01:00 Doctor Johnny sullivan, [place] [facility] DME/SUPPLY JUSTIFICATION 2022-09-19 05:01:00 Doc rancho Unassigned, [place] [facility] PATIENT QUESTIONNAIRE 2022-09-08 05:01:00 Doctor Unassigned, [place] [facility] POCT HEMOGLOBIN A1C TEST 2022-08-22 19:55:00 Magnus Martin [facility] CONSENT/REFUSAL FOR DIAGNOSIS AND TREATMENT 2022-08-22 18:48:24 Doctor Unassigned, [place] [facility] PATIENT FINANCIAL POLICY 2022-07-10 14:24:08 Doctor Unassigned, [place] [facility] OU SPECTRALIS OCT MACULA, BOTH EYES 2022-07-10 00:00:00 Cecille Valdez [facility] MEDICATION CORRESPONDENCE 2022-04-24 06:01:00 Do ctor Unassigned, [place] [facility] IR ANGIOGRAM CEREBRAL 2022-04-11 19:55:00 Ilia Calle [facility] POCT GLUCOSE (AUTOMATED) 2022-04-11 18:06:00 Rain Calle [facility] PROTHROMBIN TIME / INR 2022-04-11 17:33:00 Rajni Lucio Jose Jcourtney Perico [facility] OU SPECTRALIS OCT MAC[place]A, BOTH EYES 2022-04-03 00:00:00 Cecille Valdez [facility] EXTERNAL PROVIDER RECORDS 2022-03-13 06:01:00 Do ctor Unassigned, [place] [facility] POCT HEMOGLOBIN A1C TEST 2022-02-14 20:26:00 Magnus Martin [facility] PATIENT QUESTIONNAIRE 2022-02-14 05:01:00 Doctor Unassigned, [place] [facility] OU SPECTRALIS OCT MAC[place]A, BOTH EYES 2022-01-30 00:00:00 Cecille Valdez [facility] DIABETES TESTING REPORTS 2022-01-23 05:01:00 Doc tor Unassigned, [place] [facility] EXTERNAL PROVIDER RECORDS 2022-01-22 05:01:00 Do ctor Unassigned, [place] [facility] TRANSTHORACIC ECHO (TTE) COMPLETE 2022-01-20 18:38:53 Mitchell Vu [facility] STEREO COR BR BX/EA LESION 2015-06-21 21:00:00 Suad Sky [facility] DISCLOSURE AND CONSENT, MEDICAL AND SURGICAL PROCEDURES 2015-06-21 06:01:00 Doctor Unassigned, [place] [facility] RADIOLOGY DOCUMENTATION 2015-06-21 06:01:00 Doct or Unassigned, [place] [facility] NM MYOCARDIUM PERFUSION 2013-03-09 20:43:00 Aditya Taylor [facility] NUCLEAR MEDICINE INJECTION 2013-03-09 19:31:00 Stef Taylor [facility] NUCLEAR MEDICINE INJECTION 2013-03-09 19:31:00 Stef Taylor [facility] MR CERVICAL SPINE WO CONTRAST 2011-07-09 17:27:00 Chio Osei [facility] DATA GENERATION COMPLEX 2011-05-08 21:30:00 Courtney Heller [facility] NM GASTRIC EMPTYING 2011-05-08 20:45:00 James Heller [facility] GASTRIC EMPTYING MEAL 2011-05-08 16:34:00 Irais Heller [facility] DATA GENERATION COMPLEX 2011-03-20 21:17:00 Gracia trevino [facility] NM MYOCARDIUM PERFUSION 2011-03-20 21:17:00 Gracia trevino [facility] MYOCARDIAL EXERCISE 2011-03-20 20:00:00 Viktor ortiz [facility] NUCLEAR MEDICINE INJECTION 2011-03-20 19:42:00 Elly [facility] NUCLEAR MEDICINE INJECTION 2011-03-20 19:40:00 Elly [facility] MYOCARDIAL RESTING IMAGE 2011-03-20 17:50:00 Siva ozuna [facility] NUCLEAR MEDICINE INJECTION 2011-03-20 16:10:00 Elly [facility] Encounters Start Date/Time End Date/Time Encounter Type Admission Type Attending Clinicians Care Facility Care Department Encounter ID Source 2024-12-21 10:00:00 2024-12-21 10:00:00 Outpatient RAJNI GONZALEZ [facility] [id number] [facility] 2024-12-15 00:00:00 2024-12-15 11:46:30 Letter (Out) Royce Hernández [facility] AND [facility] 1..114 350.1.13.10 4.2.7.2.686 [id number] [facility] 2024-12-15 10:45:00 2024-12-15 11:00:00 Imm/Inj Visit R Royce Hernández [facility] [[email or web address] 1..114 350.1.13.10 4.2.7.2.686 [id number] [facility] 2024-12-09 00:00:00 2024-12-09 11:00:23 Telephone Rajni Momin [facility] 1.284.114 350.1.13.10 4.2.7.2.686 [id number] 044 [id number] [facility] 2024-12-08 09:00:00 2024-12-08 10:17:08 Office Visit R WAELSKA HERNÁNDEZCHRIS [facility] 1..114 350.1.13.10 4.2.7.2.686 [id number] 136 [id number] [facility] 2024-12-08 08:35:00 2024-12-08 08:35:00 Outpatient ROYCE HERNÁNDEZ [facility] [id number] [facility] 2024-12-07 00:00:00 2024-12-07 13:56:25 Telephone GilRajni olivas [facility] 1.840.114 350.1.13.10 4.2.7.2.686 [id number] 044 [id number] [facility] 2024-12-06 10:00:00 2024-12-06 10:00:00 Outpatient R [facility] [id number] [facility] 2024-12-06 10:00:00 2024-12-06 10:00:00 Delivery Clerk Visit R RAJNI MOMIN [facility] 1.284.114 350.1.13.10 4.2.7.2.686 [id number] [facility] 2024-11-18 00:00:00 2024-12-05 10:25:33 Letter (Out) Magnus Martin [facility] 1.284.114 350.1.13.10 4.2.7.2.686 [id number] 220 [id number] [facility] 2024-11-30 00:00:00 2024-11-30 17:22:42 Refill Rajni Momin [facility] 1.2.840.114 350.1.13.10 4.2.7.2.686 [id number] [id number] [facility] 2024-11-26 00:00:00 2024-11-28 15:06:04 Refill Rajni Momin [facility] 1.2.840.114 350.1.13.10 4.2.7.2.686 [id number] 044 [id number] [facility] 2024-11-18 11:30:00 2024-11-18 12:37:51 Office Visit Magnus Lazo [facility] 1.2.840.114 350.1.13.10 4.2.7.2.686 [id number] [facility] 2024-11-12 00:00:00 2024-11-15 08:26:18 Refill Rajni Momin [facility] 1.2.840.114 350.1.13.10 4.2.7.2.686 [id number] [id number] [facility] 2024-11-03 00:00:00 2024-11-03 16:02:59 Telephone Royce Hernández [facility] [[email or web address]] [facility] 1.20.114 350.1.13.10 4.2.7.2.686 [id number] [facility] 2024-11-03 09:15:00 2024-11-03 11:01:27 Office Visit R ROYCE HERNÁNDEZ [facility] [[email or web address] AND [facility] 1.2840.114 350.1.13.10 4.2.7.2.686 [id number] [facility] 2024-11-03 09:10:00 2024-11-03 09:10:00 Outpatient ROYCE HERNÁNDEZ [facility] [id number] [facility] 2024-10-04 00:00:00 2024-10-05 10:35:46 Refill Rajni Momin [facility] 1.2.840.114 350.1.13.10 4.2.7.2.686 [id number] 044 [id number] [facility] 2024-10-03 00:00:00 2024-10-03 08:22:54 Refill Magnus Martin [facility] 1..840.114 350.1.13.10 4.2.7.2.686 [id number] [facility] 2024-08-14 00:00:00 2024-09-17 18:23:04 Patient Secure Msg Rajni Momin [facility] 1.2.840.114 350.1.13.10 4.2.7.2.686 [id number] 044 [id number] [facility] 2024-09-08 09:15:00 2024-09-08 09:50:03 Outpatient R ROYCE HERNÁNDEZ [facility] [id number] [facility] 2024-09-08 09:15:00 2024-09-08 09:50:03 Office Visit Royce Hernández [facility] 1.2840.114 350.1.13.10 4.2.7.2.686 [id number] [facility] 2024-07-07 00:00:00 2024-08-17 13:14:00 Telephone Royce Hernández [facility] [[email or web address]] [facility] 1.2.840.114 350.1.13.10 4.2.7.2.686 [id number] [facility] 2024-08-17 11:00:00 2024-08-17 11:41:58 Outpatient R RAJNI MOMIN [facility] [id number] [facility] 2024-08-17 11:00:00 2024-08-17 11:41:58 Office Visit Rajni Momin [facility] 1.840.114 350.1.13.10 4.2.7.2.686 [id number] [id number] [facility] 2024-08-12 09:45:00 2024-08-12 10:00:00 Delivery Clerk Visit 2, Adc Lab Rajni Momin 2, Adc Lab [facility] 1.840.114 350.1.13.10 4.2.7.2.686 [id number] [facility] 2024-08-12 09:45:00 2024-08-12 09:45:00 Outpatient R RAJNI MOMIN [facility] [id number] [facility] 2024-08-03 00:00:00 2024-08-05 08:38:32 Telephone Rajni Momin [facility] 1.840.114 350.1.13.10 4.2.7.2.686 [id number] [id number] [facility] 2024-07-07 00:00:00 2024-07-07 09:56:57 Letter (Out) Royce Hernández [facility] AND [facility] 1.114 350.1.13.10 4.2.7.2.686 [id number] [facility] 2024-07-07 00:00:00 2024-07-07 09:54:03 Letter (Out) Royce Hernández [facility] [[email or web address]] [facility] 1..114 350.1.13.10 4.2.7.2.686 [id number] [facility] 2024-07-07 08:00:00 2024-07-07 09:50:59 Outpatient R ROYCE HERNÁNDEZ [facility] [id number] [facility] 2024-07-07 08:00:00 2024-07-07 09:50:59 Office Visit [facility] 1..114 350.1.13.10 4.2.7.2.686 [id number] [facility] 2024-06-24 00:00:00 2024-06-24 10:47:45 Telephone Rajni Momin [facility] 1..114 350.1.13.10 4.2.7.2.686 [id number] 044 [id number] [facility] 2024-06-23 09:30:00 2024-06-23 09:30:00 Outpatient R ROYCE HERNÁNDEZ [facility] [id number] [facility] 2024-06-20 00:00:00 2024-06-22 02:04:26 Orders Only Doctor Unassigned, [place] Doctor Unassigned, [place] [facility] [[email or web address] [place] [facility] 1..114 350.1.13.10 4.2.7.2.686 [id number] [facility] 2023-10-06 00:00:00 2024-06-18 07:36:38 Orders Only Doctor Unassigned, [place] Doctor Unassigned, [place] [facility] [[email or web address] [place] [facility] 1.840.114 350.1.13.10 4.2.7.2.686 [id number] [facility] 2023-12-29 00:00:00 2024-06-18 07:03:45 Orders Only Doctor Unassigned, [place] Doctor Unassigned, [place] [facility] [[email or web address] [place] ([facility] 1.2.840.114 350.1.13.10 4.2.7.2.686 [id number] [facility] 2011-03-20 00:00:00 2024-06-18 05:48:58 Orders Only An Sanabria [facility] 1.2.840.114 350.1.13.10 4.2.7.2.686 [id number] [facility] 2011-05-08 00:00:00 2024-06-18 05:43:27 Orders Only Ramiro Heller [facility] 1.2.840.114 350.1.13.10 4.2.7.2.686 [id number] [facility] 2011-07-09 00:00:00 2024-06-18 05:34:56 Orders Only Chio Osei [facility] ([facility] 1.2.840.114 350.1.13.10 4.2.7.2.686 [id number] [facility] 2013-03-09 00:00:00 2024-06-18 04:42:48 Orders Only Stef Taylor [facility] [[email or web address] 1.2.840.114 350.1.13.10 4.2.7.2.686 [id number] [id number] [facility] 2013-03-09 00:00:00 2024-06-18 04:42:47 Orders Only Stef Taylor [facility] [[email or web address] 1.2.840.114 350.1.13.10 4.2.7.2.686 [id number] [id number] [facility] 2013-03-09 00:00:00 2024-06-18 04:42:47 Orders Only Stef Taylor [facility] [[email or web address] 1.2.840.114 350.1.13.10 4.2.7.2.686 [id number] 061 [id number] [facility] 2015-06-21 00:00:00 2024-06-18 04:19:40 Orders Only Doctor Unassigned, [place] Doctor Unassigned, [place] [facility] [[email or web address] [place] [facility] 1.2.840.114 350.1.13.10 4.2.7.2.686 [id number] [facility] 2023-08-24 00:00:00 2024-06-18 02:15:08 Orders Only Doctor Unassigned, [place] Doctor Unassigned, [place] [facility] [[email or web address] [place] [facility] 1.2.840.114 350.1.13.10 4.2.7.2.686 [id number] [facility] 2024-06-07 00:00:00 2024-06-12 14:27:22 Telephone Rajni Momin [facility] 1.2.840.114 350.1.13.10 4.2.7.2.686 [id number] 044 [id number] [facility] 2024-05-31 00:00:00 2024-05-31 08:19:57 Telephone Rajni Momin [facility] 1.2.840.114 350.1.13.10 4.2.7.2.686 [id number] [id number] [facility] 2024-05-12 00:00:00 2024-05-24 09:22:15 Telephone Rajni Momin [facility] 1.2.840.114 350.1.13.10 4.2.7.2.686 [id number] 044 [id number] [facility] 2024-05-23 00:00:00 2024-05-23 08:58:40 Refill Rajni Momin [facility] 1.2.840.114 350.1.13.10 4.2.7.2.686 [id number] [id number] [facility] 2024-05-19 00:00:00 2024-05-19 12:50:50 Telephone [facility] 1.2.840.114 350.1.13.10 4.2.7.2.686 [id number] [facility] 2024-05-18 00:00:00 2024-05-18 14:27:41 Patient Outreach Mariam Martinez Jocelyn [facility] 1.2.840.114 350.1.13.10 4.2.7.2.686 [id number] 044 [id number] [facility] 2024-05-18 00:00:00 2024-05-18 13:23:26 Patient Outreach Mica Estrada [place] J [facility] 1.2.840.114 350.1.13.10 4.2.7.2.686 [id number] 044 [id number] [facility] 2024-05-17 00:00:00 2024-05-17 15:59:56 Telephone Rajni Momin [facility] 1.2.840.114 350.1.13.10 4.2.7.2.686 [id number] 044 [id number] [facility] 2024-05-12 00:00:00 2024-05-12 15:08:23 Refill AureliaRajni barlow [facility] 1.2.840.114 350.1.13.10 4.2.7.2.686 [id number] 044 [id number] [facility] 2024-05-11 14:45:00 2024-05-11 15:00:00 Delivery Clerk Visit 2, Adc Lab Rajni Momin 2, [facility] 1.2.840.114 350.1.13.10 4.2.7.2.686 [id number] [facility] 2024-05-11 13:20:00 2024-05-11 14:03:52 Outpatient R RAJNI MOMIN [facility] [id number] [facility] 2024-05-11 13:20:00 2024-05-11 14:03:52 Office Visit Rajni Momin [facility] 1.2.840.114 350.1.13.10 4.2.7.2.686 [id number] 044 [id number] [facility] 2024-05-10 00:00:00 2024-05-11 09:25:19 Refill Rajni Momin [facility] 1..840.114 350.1.13.10 4.2.7.2.686 [id number] [id number] [facility] 2024-04-28 00:00:00 2024-04-28 12:18:18 Telephone Magnus Martin [facility] 1.2.840.114 350.1.13.10 4.2.7.2.686 [id number] [facility] 2024-04-28 09:00:00 2024-04-28 10:22:00 Outpatient R ROYCE HERNÁNDEZ [facility] [id number] [facility] 2024-04-28 09:00:00 2024-04-28 09:15:00 Office Visit Royce Hernández [facility] 1.2840.114 350.1.13.10 4.2.7.2.686 [id number] [facility] 2024-04-22 11:30:00 2024-04-22 11:37:56 Outpatient R MAGNUS MARTIN [facility] [id number] [facility] 2024-04-22 11:30:00 2024-04-22 11:37:56 Office Visit Magnus Martin [facility] 1.2.840.114 350.1.13.10 4.2.7.2.686 [id number] [facility] 2024-04-15 00:00:00 2024-04-15 15:42:23 Telephone Rajni Momin [facility] 1.2.840.114 350.1.13.10 4.2.7.2.686 [id number] 044 [id number] [facility] 2024-04-01 00:00:00 2024-04-01 10:08:16 Telephone GilRajni olivas [facility] 1.2.840.114 350.1.13.10 4.2.7.2.686 [id number] 044 [id number] [facility] 2024-03-29 00:00:00 2024-03-29 15:53:48 Refill AureliaRajni barlow [facility] 1.2.840.114 350.1.13.10 4.2.7.2.686 [id number] 044 [id number] [facility] 2024-03-24 00:00:00 2024-03-24 10:00:07 Refill GilRajni olivas [facility] 1.2.840.114 350.1.13.10 4.2.7.2.686 [id number] 044 [id number] [facility] 2024-03-24 09:00:00 2024-03-24 09:00:00 Outpatient ROYCE KENDALL [facility] [id number] [facility] 2024-03-17 00:00:00 2024-03-18 08:33:48 Refill Rajni Momin [facility] 1.2.840.114 350.1.13.10 4.2.7.2.686 [id number] 044 [id number] [facility] 2024-03-15 00:00:00 2024-03-15 13:16:48 Telephone Castillo Guerra [facility] 1.2.840.114 350.1.13.10 4.2.7.2.686 [id number] [id number] [facility] 2024-03-03 09:45:00 2024-03-03 09:45:00 Outpatient ROYCE KENDALL [facility] [id number] [facility] 2024-02-26 00:00:00 2024-02-26 12:41:20 Refill Rajni Momin [facility] 1.2.840.114 350.1.13.10 4.2.7.2.686 [id number] 044 [id number] [facility] 2024-02-22 00:00:00 2024-02-22 14:40:14 Telephone Rajni Momin [facility] 1.2.840.114 350.1.13.10 4.2.7.2.686 [id number] 044 [id number] [facility] 2024-02-18 00:00:00 2024-02-22 12:20:49 Telephone Rajni Momin [facility] 1.2.840.114 350.1.13.10 4.2.7.2.686 [id number] 044 [id number] [facility] 2024-02-17 00:00:00 2024-02-18 09:47:41 Telephone Rajni Momin [facility] 1.2.840.114 350.1.13.10 4.2.7.2.686 [id number] 044 [id number] [facility] 2024-02-17 00:00:00 2024-02-17 10:35:51 Refill Rajni Momin [facility] 1.2.840.114 350.1.13.10 4.2.7.2.686 [id number] 044 [id number] [facility] 2024-02-16 00:00:00 2024-02-16 09:55:07 Telephone Rajni Momin [facility] 1.2.840.114 350.1.13.10 4.2.7.2.686 [id number] 044 [id number] [facility] 2024-02-15 00:00:00 2024-02-16 09:25:34 RefMagnus Ann [facility] 1.2.840.114 350.1.13.10 4.2.7.2.686 [id number] 220 [id number] [facility] 2024-02-15 00:00:00 2024-02-15 15:51:17 Refill AureliashantanuRajni olivas [facility] 1.2840.114 350.1.13.10 4.2.7.2.686 [id number] 044 [id number] [facility] 2024-02-04 00:00:00 2024-02-04 13:45:36 Letter (Out) Royce Hernández [facility] 1.2840.114 350.1.13.10 4.2.7.2.686 [id number] 136 [id number] [facility] 2024-02-04 09:15:00 2024-02-04 09:30:00 Office Visit Royce Hernández [facility] 1.2.840.114 350.1.13.10 4.2.7.2.686 [id number] 136 [id number] [facility] 2024-02-04 09:15:00 2024-02-04 09:15:00 Outpatient R ROYCE HERNÁNDEZ [facility] [id number] [facility] 2024-01-27 00:00:00 2024-01-28 20:07:54 Refill Rajni Momin [facility] 1.2.840.114 350.1.13.10 4.2.7.2.686 [id number] 044 [id number] [facility] 2024-01-28 00:00:00 2024-01-28 13:55:37 Telephone Rajni Momin [facility] 1.2.840.114 350.1.13.10 4.2.7.2.686 [id number] 044 [id number] [facility] 2024-01-24 00:00:00 2024-01-25 08:45:24 Refill Rajni Momin [facility] 1.2.840.114 350.1.13.10 4.2.7.2.686 [id number] 044 [id number] [facility] 2024-01-11 00:00:00 2024-01-22 13:49:35 Telephone Rajni Momin [facility] 1.2.840.114 350.1.13.10 4.2.7.2.686 [id number] 044 [id number] [facility] 2024-01-21 00:00:00 2024-01-22 10:50:20 Telephone [facility] 1.2.840.114 350.1.13.10 4.2.7.2.686 [id number] 220 [id number] [facility] 2024-01-18 00:00:00 2024-01-18 15:20:03 Telephone Magnus [facility] 1.2.840.114 350.1.13.10 4.2.7.2.686 [id number] 220 [id number] [facility] 2024-01-18 00:00:00 2024-01-18 10:24:51 Telephone Magnus Martin [facility] 1.2840.114 350.1.13.10 4.2.7.2.686 [id number] 220 [id number] [facility] 2024-01-15 00:00:00 2024-01-17 14:30:35 Telephone [facility] 1.2840.114 350.1.13.10 4.2.7.2.686 [id number] 220 [id number] [facility] 2024-01-13 00:00:00 2024-01-14 08:52:23 Telephone Veronica [facility] EARL?K[facility]IE [facility] 1.2.840.114 350.1.13.10 4.2.7.2.686 [id number] 220 [id number] [facility] 2024-01-14 08:30:00 2024-01-14 08:30:00 Outpatient ACSTILLO LOPEZ [facility] [id number] [facility] 2024-01-12 00:00:00 2024-01-12 09:13:51 Telephone Veronica [facility] EARL?KATIE [facility] MEDICAL OFFICE BUILDING 1.2.840.114 350.1.13.10 4.2.7.2.686 [id number] 220 [id number] [facility] 2024-01-11 00:00:00 2024-01-11 14:10:40 Telephone Magnus Martin [facility]IE [facility] 1.84.114 350.1.13.10 4.2.7.2.686 [id number] 220 [id number] [facility] 2024-01-07 00:00:00 2024-01-08 16:09:57 [facility]Denise [facility] OFFICE BUILDING 1.840.114 350.1.13.10 4.2.7.2.686 [id number] 220 [id number] [facility] 2024-01-08 08:30:00 2024-01-08 08:30:00 Outpatient R CHARLIE [facility] [id number] [facility] 2024-01-07 00:00:00 2024-01-07 14:02:44 Telephone Veronica [facility]Denise [facility] OFFICE BUILDING 1.840.114 350.1.13.10 4.2.7.2.686 [id number] 220 [id number] [facility] 2024-01-06 15:00:00 2024-01-06 15:43:05 Outpatient R [facility] [id number] [facility] 2024-01-06 15:00:00 2024-01-06 15:43:05 [facility] 1.840.114 350.1.13.10 4.2.7.2.686 [id number] 059 [id number] [facility] 2023-12-31 08:45:00 2023-12-31 09:00:00 Office Visit Royce Hernández [facility] 1.2.840.114 350.1.13.10 4.2.7.2.686 [id number] 136 [id number] [facility] 2023-12-31 08:45:00 2023-12-31 08:45:00 Outpatient R HITESH MARTINEZORLANDO FARMERCHRIS [facility] [id number] [facility] 2023-12-30 16:00:00 2023-12-30 16:45:33 Outpatient R RAJNI MOMIN [facility] [id number] [facility] 2023-12-30 16:00:00 2023-12-30 16:45:33 Office Visit Rajni Momin [facility] BU[facility] 1.2.840.114 350.1.13.10 4.2.7.2.686 [id number] 044 [id number] [facility] 2023-12-30 00:00:00 2023-12-30 16:44:41 Telephone Rajni Momin [facility] BU[facility] 1.2.840.114 350.1.13.10 4.2.7.2.686 [id number] 044 [id number] [facility] 2023-12-24 00:00:00 2023-12-24 16:11:35 Telephone AureliaRajni barlow [facility] BU[facility] 1.2.840.114 350.1.13.10 4.2.7.2.686 [id number] 044 [id number] [facility] 2023-12-10 00:00:00 2023-12-10 15:43:40 Telephone Rajni Momin [facility] BU[facility] 1.2.840.114 350.1.13.10 4.2.7.2.686 [id number] 044 [id number] [facility] 2023-12-08 00:00:00 2023-12-08 13:45:23 Telephone Rajni Momin [facility] BU[facility] 1.2.840.114 350.1.13.10 4.2.7.2.686 [id number] 044 [id number] [facility] 2023-12-07 00:00:00 2023-12-07 16:56:43 Telephone Rajni Momin [facility] 1.2.840.114 350.1.13.10 4.2.7.2.686 [id number] 044 [id number] [facility] 2023-12-03 10:15:00 2023-12-03 11:27:21 Outpatient R ROYCE HERNÁNDEZ [facility] [id number] [facility] 2023-12-03 10:15:00 2023-12-03 10:30:00 Imm/Inj Visit Royce Hernández [email or web address]] MULTISPEC [facility] C[facility] AND [facility] 1.2840.114 350.1.13.10 4.2.7.2.686 [id number] 136 [id number] [facility] 2023-11-28 00:00:00 2023-11-30 12:08:17 Refill Rajni Momin [facility] 1.2.840.114 350.1.13.10 4.2.7.2.686 [id number] 044 [id number] [facility] 2023-11-06 14:45:00 2023-11-06 15:00:47 Delivery Clerk Visit 2, Adc Lab Rajni Momin [facility] 1.2.840.114 350.1.13.10 4.2.7.2.686 [id number] 353 [id number] [facility] 2023-11-06 13:40:00 2023-11-06 14:44:23 Office Visit Rajni Momin [facility] 1.2.840.114 350.1.13.10 4.2.7.2.686 [id number] 044 [id number] [facility] 2023-11-06 13:20:00 2023-11-06 14:42:08 Outpatient R AURELIASPRAJNI [facility] [id number] [facility] 2023-11-06 13:20:00 2023-11-06 14:42:08 Office Visit AureliamacRajni strickland [facility] [[email or web address]] [facility] 1.2.840.114 350.1.13.10 4.2.7.2.686 [id number] 044 [id number] [facility] 2023-11-02 00:00:00 2023-11-02 13:45:04 Telephone AureliashantanuRajni olivas [facility] 1.2.840.114 350.1.13.10 4.2.7.2.686 [id number] 044 [id number] [facility] 2023-10-30 00:00:00 2023-11-02 08:32:42 Telephone GilRajni olivas [facility] 1.2.840.114 350.1.13.10 4.2.7.2.686 [id number] 044 [id number] [facility] 2023-10-29 10:00:00 2023-10-29 11:10:53 Imm/Inj Visit Royce Hernández [facility] 1.840.114 350.1.13.10 4.2.7.2.686 [id number] 136 [id number] [facility] 2023-10-29 10:00:00 2023-10-29 10:00:00 Outpatient R ROYCE HERNÁNDEZ [facility] [id number] [facility] 2023-10-28 00:00:00 2023-10-28 15:52:38 Telephone GilRajni olivas [facility] 1.2.840.114 350.1.13.10 4.2.7.2.686 [id number] 044 [id number] [facility] 2023-10-28 00:00:00 2023-10-28 14:25:59 Pre Visit Outreach Audrey Bartholomew [facility] 1.2.840.114 350.1.13.10 4.2.7.2.686 [id number] 082 [id number] [facility] 2020-05-20 00:00:00 2023-10-20 02:21:13 Mobile Device Encounter Osiris Miranda [facility] 1.2.840.114 350.1.13.10 4.2.7.2.686 [id number] [facility] 2023-10-15 00:00:00 2023-10-15 08:59:33 Telephone Rajni Momin [facility] 1.2.840.114 350.1.13.10 4.2.7.2.686 [id number] 044 [id number] [facility] 2023-10-13 00:00:00 2023-10-13 11:49:20 Telephone Rajni Momin [facility] 1.2.840.114 350.1.13.10 4.2.7.2.686 [id number] 225 [id number] [facility] 2023-10-01 00:00:00 2023-10-01 13:46:47 Telephone AureliashantanuRajni olivas [facility] 1.2.840.114 350.1.13.10 4.2.7.2.686 [id number] 044 [id number] [facility] 2023-10-01 13:15:00 2023-10-01 13:30:00 Imm/Inj Visit Royce Hernández [facility] 1.2.840.114 350.1.13.10 4.2.7.2.686 [id number] 136 [id number] [facility] 2023-10-01 13:15:00 2023-10-01 13:15:00 Outpatient R HITESH MELÉNDEZ ROYCE [facility] [id number] [facility] 2023-09-28 00:00:00 2023-09-28 11:03:10 Refill Anastasiya [facility] 1.2.840.114 350.1.13.10 4.2.7.2.686 [id number] 044 [id number] [facility] 2023-09-24 10:30:00 2023-09-24 10:30:00 Outpatient R HITESH MELÉNDEZ ROYCE [facility] [id number] [facility] 2023-09-24 00:00:00 2023-09-24 10:07:29 Telephone AureliashantanuRajni olivas [facility] 1.2.840.114 350.1.13.10 4.2.7.2.686 [id number] 044 [id number] [facility] 2023-09-18 11:30:00 2023-09-18 12:12:34 Office Visit Magnus Martin [facility]?KATIE JON [facility] 1.2.840.114 350.1.13.10 4.2.7.2.686 [id number] 220 [id number] [facility] 2023-09-18 11:30:00 2023-09-18 12:12:34 Outpatient R MAGNUS MARTIN [facility] [id number] [facility] 2023-08-12 00:00:00 2023-09-12 18:05:01 Patient Secure Msg Doctor Unassigned, [place] [facility] 1.2.840.114 350.1.13.10 4.2.7.2.686 [id number] 019 [id number] [facility] 2023-09-10 00:00:00 2023-09-10 10:39:19 Letter (Out) Royce Hernández [facility] MULTISPEC [facility]ALTY CENTER AND [facility] 1.840.114 350.1.13.10 4.2.7.2.686 [id number] 136 [id number] [facility] 2023-09-10 09:15:00 2023-09-10 10:34:01 Outpatient R ROYCE HERNÁNDEZ [facility] [id number] [facility] 2023-09-10 09:15:00 2023-09-10 09:30:00 [facility] 1.840.114 350.1.13.10 4.2.7.2.686 [id number] 136 [id number] [facility] 2023-09-04 11:00:00 2023-09-04 11:00:00 Outpatient R CASTILLO GUERRA [facility] [id number] [facility] 2023-09-01 10:30:00 2023-09-01 10:30:00 Outpatient R SARITA SOLIZ [facility] [id number] [facility] 2023-08-21 00:00:00 2023-08-21 00:00:00 Telephone Rajni Momin [facility] [[email or web address]] [facility] 1..840.114 350.1.13.10 4.2.7.2.686 [id number] 044 [id number] [facility] 2023-08-21 00:00:00 2023-08-21 00:00:00 Telephone Rajni Momin [facility] 1..840.114 350.1.13.10 4.2.7.2.686 [id number] 044 [id number] [facility] 2023-08-13 10:45:00 2023-08-13 12:39:48 Outpatient R ROYCE HERNÁNDEZ [facility] [id number] [facility] 2023-08-13 10:45:00 2023-08-13 11:00:00 Imm/Inj Visit Royce Hernández [facility] [[email or web address]] M[facility]ISPEC [facility] 1..114 350.1.13.10 4.2.7.2.686 [id number] 136 [id number] [facility] 2023-08-11 00:00:00 2023-08-11 00:00:00 Telephone Jack Chang [facility] 1..114 350.1.13.10 4.2.7.2.686 [id number] 044 [id number] [facility] 2023-08-10 00:00:00 2023-08-10 00:00:00 Patient Outreach Rajni Momin [facility] 1..114 350.1.13.10 4.2.7.2.686 [id number] 044 [id number] [facility] 2023-08-06 10:00:00 2023-08-06 10:00:00 Outpatient R ROYCE HERNÁNDEZ [facility] [id number] [facility] 2023-08-06 00:00:00 2023-08-06 00:00:00 Telephone [facility]ce [facility] 1.114 350.1.13.10 4.2.7.2.686 [id number] 136 [id number] [facility] 2023-08-05 10:16:30 2023-08-05 23:59:00 Outpatient R RAJNI MOMIN [facility] [id number] [facility] 2023-08-05 10:16:30 2023-08-05 23:59:00 Hospital Encounter Rajni Momin [facility] 1..114 350.1.13.10 4.2.7.2.686 [id number] [id number] [facility] 2023-08-05 00:00:00 2023-08-05 00:00:00 Patient Outreach Ava Phillips Ann [facility] 1..840.114 350.1.13.10 4.2.7.2.686 [id number] 044 [id number] [facility] 2023-08-05 00:00:00 2023-08-05 00:00:00 Patient Secure Msg Doctor Unassigned, [place] [facility] 1.840.114 350.1.13.10 4.2.7.2.686 [id number] [facility] 2023-08-04 00:00:00 2023-08-04 00:00:00 Patient Outreach Rajni Momin [facility] 1.840.114 350.1.13.10 4.2.7.2.686 [id number] 044 [id number] [facility] 2023-07-29 15:20:00 2023-07-29 16:55:09 Outpatient R RAJNI MOMIN [facility] [id number] [facility] 2023-07-29 15:20:00 2023-07-29 16:55:09 Office Visit Rajni Momin [facility] 1.840.114 350.1.13.10 4.2.7.2.686 [id number] 044 [id number] [facility] 2023-07-29 16:30:00 2023-07-29 16:45:00 Delivery Clerk Visit Pob, Adc Lab Main Rajni Momin [facility] 1..840.114 350.1.13.10 4.2.7.2.686 [id number] 353 [id number] [facility] 2023-07-29 00:00:00 2023-07-29 00:00:00 Telephone Rajni Momin [facility] 1.840.114 350.1.13.10 4.2.7.2.686 [id number] 044 [id number] [facility] 2023-07-29 00:00:00 2023-07-29 00:00:00 Telephone Rajni Momin [facility] 1.20.114 350.1.13.10 4.2.7.2.686 [id number] 044 [id number] [facility] 2023-07-27 08:45:00 2023-07-27 08:36:09 Outpatient R RAJNI MOMIN [facility] [id number] [facility] 2023-07-23 00:00:00 2023-07-23 00:00:00 Telephone Anastasiya [facility] 1..114 350.1.13.10 4.2.7.2.686 [id number] 044 [id number] [facility] 2023-07-09 10:15:00 2023-07-09 11:17:12 Outpatient R ROYCE HERNÁNDEZ [facility] [id number] [facility] 2023-07-09 10:15:00 2023-07-09 10:30:00 Imm/Inj Visit Royce Hernández [facility] MULTISPEC IAY CENTER AND [facility] 1.114 350.1.13.10 4.2.7.2.686 [id number] 136 [id number] [facility] 2023-07-09 00:00:00 2023-07-09 00:00:00 Orders Only Doctor Unassigned, [place] [facility] 1..114 350.1.13.10 4.2.7.2.686 [id number] 009 [id number] [facility] 2023-07-02 00:00:00 2023-07-02 00:00:00 Rajni Pe[facility] 1.840.114 350.1.13.10 4.2.7.2.686 [id number] 044 [id number] [facility] 2023-06-04 14:45:00 2023-06-04 15:58:03 Outpatient R ROYCE HERNÁNDEZ [facility] [id number] [facility] 2023-06-04 14:45:00 2023-06-04 15:00:00 Imm/Inj Visit Royce Hernández [facility] [[email or web address]] [facility] 1.114 350.1.13.10 4.2.7.2.686 [id number] 136 [id number] [facility] 2023-06-04 00:00:00 2023-06-04 00:00:00 Orders Only Doctor Unassigned, [place] [facility] 1..114 350.1.13.10 4.2.7.2.686 [id number] [id number] [facility] 2023-06-02 00:00:00 2023-06-02 00:00:00 Telephone [facility] MED[facility] OFFICE BUILDING 1.84.114 350.1.13.10 4.2.7.2.686 [id number] 220 [id number] [facility] 2023-06-02 00:00:00 2023-06-02 00:00:00 Telephone Magnus Martin [facility] EARL?ARONDenise [facility] MEDICAL OFFICE BUILDING 1.84.114 350.1.13.10 4.2.7.2.686 [id number] 220 [id number] [facility] 2023-06-02 00:00:00 2023-06-02 00:00:00 Telephone [facility]us [facility]ARON[facility] MEDICAL OFFICE BUILDING 1..114 350.1.13.10 4.2.7.2.686 [id number] 220 [id number] [facility] 2023-06-01 00:00:00 2023-06-01 00:00:00 Telephone Rajni Momin [facility] 1.840.114 350.1.13.10 4.2.7.2.686 [id number] 044 [id number] [facility] 2023-05-29 00:00:00 2023-05-29 00:00:00 Refill Anastasiya [facility] BUILDING 1..114 350.1.13.10 4.2.7.2.686 [id number] 044 [id number] [facility] 2023-05-28 15:30:00 2023-05-28 15:30:00 Outpatient R ROYCE HERNÁNDEZ [facility] [id number] [facility] 2023-05-28 00:00:00 2023-05-28 00:00:00 Telephone Magnus Martin [facility]?KATIE [facility] OFF[facility]ILD[facility] 1.114 350.1.13.10 4.2.7.2.686 [id number] 220 [id number] [facility] 2023-05-22 00:00:00 2023-05-22 00:00:00 Telephone Royce Hernández [facility] MULTISPEC [facility]ALTY CENTER AND [facility] 1..114 350.1.13.10 4.2.7.2.686 [id number] 136 [id number] [facility] 2023-05-21 00:00:00 2023-05-21 00:00:00 Telephone Royce Hernández [facility] [[email or web address]] MULTISPEC [facility] 1.840.114 350.1.13.10 4.2.7.2.686 [id number] [facility] 2023-05-14 08:45:00 2023-05-14 10:01:43 Outpatient R ROYCE HERNÁNDEZ [facility] [id number] [facility] 2023-05-14 08:45:00 2023-05-14 09:00:00 Office Visit Royce Hernández [facility] 1.840.114 350.1.13.10 4.2.7.2.686 [id number] 136 [id number] [facility] 2023-05-05 00:00:00 2023-05-05 00:00:00 Rajni Perera [facility] NAL BUILDING 1..840.114 350.1.13.10 4.2.7.2.686 [id number] 044 [id number] [facility] 2023-04-30 08:40:00 2023-04-30 08:40:00 Outpatient R RAJNI MOMIN [facility] [id number] [facility] 2023-04-12 00:00:00 2023-04-12 00:00:00 Rajni Perera [facility] 1..840.114 350.1.13.10 4.2.7.2.686 [id number] 044 [id number] [facility] 2023-03-20 13:30:00 2023-03-20 13:45:00 Delivery Clerk Visit Lab, Magnus Casanova [facility]?KATIE JON MEDICAL OFFICE BUILDING 1..840.114 350.1.13.10 4.2.7.2.686 [id number] 353 [id number] [facility] 2023-03-20 10:30:00 2023-03-20 11:33:56 Outpatient R MAGNUS MARTIN [facility] [id number] [facility] 2023-03-20 10:30:00 2023-03-20 11:33:56 Office Visit Magnus Martin [facility]IE [facility] 1.2840.114 350.1.13.10 4.2.7.2.686 [id number] 220 [id number] [facility] 2023-03-20 00:00:00 2023-03-20 00:00:00 Orders Only Doctor Unassigned, [place] [facility] 1.284.114 350.1.13.10 4.2.7.2.686 [id number] [id number] [facility] 2023-03-19 08:45:00 2023-03-19 08:45:00 Outpatient ROYCE KENDALL [facility] [id number] [facility] 2023-03-19 00:00:00 2023-03-19 00:00:00 Telephone Magnus Martin [facility] E[facility]?KATIE [facility] MEDICAL OFFICE BUILDING 1.840.114 350.1.13.10 4.2.7.2.686 [id number] 220 [id number] [facility] 2023-03-18 00:00:00 2023-03-18 00:00:00 Telephone Magnus Martin [facility]?KATIE [facility] MEDICAL OFFICE BUILDING 1.840.114 350.1.13.10 4.2.7.2.686 [id number] 220 [id number] [facility] 2023-02-26 00:00:00 2023-02-26 00:00:00 Refill Rajni Momin [facility] N[facility] 1.840.114 350.1.13.10 4.2.7.2.686 [id number] 044 [id number] [facility] 2023-02-24 00:00:00 2023-02-24 00:00:00 Refill Veronica [facility] EARL?[facility]Denise JON MEDICAL OFFICE BUILDING 1.2.840.114 350.1.13.10 4.2.7.2.686 [id number] 220 [id number] [facility] 2023-02-11 00:00:00 2023-02-11 00:00:00 Orders Only Doctor Unassigned, [place] [facility] 1.84.114 350.1.13.10 4.2.7.2.686 [id number] [id number] [facility] 2023-01-27 00:00:00 2023-01-27 00:00:00 Patient Secure Msg Doctor Unassigned, [place] [facility] 1.284.114 350.1.13.10 4.2.7.2.686 [id number] [facility] 2023-01-23 12:45:00 2023-01-23 12:45:00 Outpatient R JAMES HARMON [facility] [id number] [facility] 2023-01-19 00:00:00 2023-01-19 00:00:00 Magnus Peña [facility]?KATIE [facility] 1.84.114 350.1.13.10 4.2.7.2.686 [id number] 220 [id number] [facility] 2023-01-15 08:45:00 2023-01-15 09:45:39 Outpatient R ROYCE HERNÁNDEZ [facility] [id number] [facility] 2023-01-15 08:45:00 2023-01-15 09:45:39 Office Visit Royce Hernández [facility] 1.840.114 350.1.13.10 4.2.7.2.686 [id number] [facility] 2023-01-13 09:00:00 2023-01-13 09:54:17 Outpatient R RAJNI MOMIN [facility] [id number] [facility] 2023-01-13 09:00:00 2023-01-13 09:54:17 Office Visit Rajni Momin [facility] 1.2.840.114 350.1.13.10 4.2.7.2.686 [id number] [facility] 2023-01-08 10:30:00 2023-01-08 10:45:00 Delivery Clerk Visit 2, [facility] Anastasiya [facility] BUILD[facility] 1.2.840.114 350.1.13.10 4.2.7.2.686 [id number] [facility] 2023-01-08 10:30:00 2023-01-08 10:30:00 Outpatient R RAJNI MOMIN [facility] [id number] [facility] 2022-12-16 11:00:00 2022-12-16 11:00:00 Outpatient R AURELIASPRAJNI [facility] [id number] [facility] 2022-12-08 00:00:00 2022-12-08 00:00:00 Orders Only Doctor Unassigned, [place] [facility] 1.2840.114 350.1.13.10 4.2.7.2.686 [id number] [facility] 2022-11-27 00:00:00 2022-11-27 00:00:00 Telephone Magnus Martin [facility]?ARONDenise [facility] 1.2840.114 350.1.13.10 4.2.7.2.686 [id number] 220 [id number] [facility] 2022-11-26 00:00:00 2022-11-26 00:00:00 Refill Anastasiya [facility] BUILDING 1.2.840.114 350.1.13.10 4.2.7.2.686 [id number] [id number] [facility] 2022-11-18 00:00:00 2022-11-18 00:00:00 [facility]phone [facility] 1.2.840.114 350.1.13.10 4.2.7.2.686 [id number] [facility] 2022-11-17 00:00:00 2022-11-17 00:00:00 Refill Rajni Momin [facility]ILD[facility] 1.2.840.114 350.1.13.10 4.2.7.2.686 [id number] [facility] 2022-11-17 00:00:00 2022-11-17 00:00:00 [facility]ill [facility] 1.2840.114 350.1.13.10 4.2.7.2.686 [id number] [facility] 2022-10-31 00:00:00 2022-10-31 00:00:00 Refill Osiris Miranda [facility] BUILD[facility] 1.2.840.114 350.1.13.10 4.2.7.2.686 [id number] [facility] 2022-10-31 00:00:00 2022-10-31 00:00:00 Refill Rajni Momin [facility]ILD[facility] 1.2.840.114 350.1.13.10 4.2.7.2.686 [id number] [facility] 2022-10-20 00:00:00 2022-10-20 00:00:00 Refill Rajni Momin [facility] NAL BUILDING 1.2840.114 350.1.13.10 4.2.7.2.686 [id number] 044 [id number] [facility] 2022-10-16 08:45:00 2022-10-16 10:33:49 Outpatient R ROYCE HERNÁNDEZ [facility] [id number] [facility] 2022-10-16 08:45:00 2022-10-16 10:33:49 Office Visit Royce Hernández [facility] 1.2840.114 350.1.13.10 4.2.7.2.686 [id number] [facility] 2022-10-09 00:00:00 2022-10-09 00:00:00 Orders Only Doctor Unassigned, [place] [facility] 1.2840.114 350.1.13.10 4.2.7.2.686 [id number] 009 [id number] [facility] 2022-10-02 00:00:00 2022-10-02 00:00:00 Telephone Rajni Momin [facility] 1.840.114 350.1.13.10 4.2.7.2.686 [id number] 044 [id number] [facility] 2022-10-02 00:00:00 2022-10-02 00:00:00 Orders Only Doctor Unassigned, [place] [facility] 1.2840.114 350.1.13.10 4.2.7.2.686 [id number] 009 [id number] [facility] 2022-09-26 00:00:00 2022-09-26 00:00:00 Refill Castillo Guerra [facility] 1.2840.114 350.1.13.10 4.2.7.2.686 [id number] 059 [id number] [facility] 2022-09-26 00:00:00 2022-09-26 00:00:00 Refill Castillo Guerra [facility] 1.2.840.114 350.1.13.10 4.2.7.2.686 [id number] 059 [id number] [facility] 2022-09-26 00:00:00 2022-09-26 00:00:00 Refill Rajni Momin [facility] 1.2.840.114 350.1.13.10 4.2.7.2.686 [id number] 044 [id number] [facility] 2022-09-22 00:00:00 2022-09-22 00:00:00 Telephone Rajni Momin [facility] 1.2.840.114 350.1.13.10 4.2.7.2.686 [id number] 044 [id number] [facility] 2022-09-19 00:00:00 2022-09-19 00:00:00 Orders Only Doctor Unassigned, [place] [facility] 1.2.840.114 350.1.13.10 4.2.7.2.686 [id number] 009 [id number] [facility] 2022-09-08 00:00:00 2022-09-08 00:00:00 Orders Only Doctor Unassigned, [place] [facility] 1.2.840.114 350.1.13.10 4.2.7.2.686 [id number] 009 [id number] [facility] 2022-09-04 00:00:00 2022-09-04 00:00:00 Patient Outreach Alexandria Eric [facility] 1.2.840.114 350.1.13.10 4.2.7.2.686 [id number] 044 [id number] [facility] 2022-09-03 15:00:00 2022-09-03 15:18:27 Office Visit Charlie Castillo [facility] 1.2.840.114 350.1.13.10 4.2.7.2.686 [id number] 059 [id number] [facility] 2022-09-03 15:00:00 2022-09-03 15:00:00 Outpatient R CASTILLO GUERRA [facility] [id number] [facility] 2022-09-03 13:20:00 2022-09-03 14:00:03 Outpatient R SILVANOARTRAJNI [facility] [id number] [facility] 2022-09-03 13:20:00 2022-09-03 14:00:03 Office Visit Rajni Momin [facility] 1.2.840.114 350.1.13.10 4.2.7.2.686 [id number] 044 [id number] [facility] 2022-09-03 13:00:00 2022-09-03 13:20:00 Office Visit Rajni Momin [facility] 1.2.840.114 350.1.13.10 4.2.7.2.686 [id number] 044 [id number] [facility] 2022-09-03 00:00:00 2022-09-03 00:00:00 Osiris Rowan [facility] 1.2.840.114 350.1.13.10 4.2.7.2.686 [id number] [facility] 2022-09-03 00:00:00 2022-09-03 00:00:00 Patient Secure Msg Doctor Unassigned, [place] [facility] 1.2840.114 350.1.13.10 4.2.7.2.686 [id number] 019 [id number] [facility] 2022-09-03 00:00:00 2022-09-03 00:00:00 Patient Secure Msg Doctor Unassigned, [place] [facility] 1.2840.114 350.1.13.10 4.2.7.2.686 [id number] 019 [id number] [facility] 2022-08-29 00:00:00 2022-08-29 00:00:00 Patient Secure Msg Doctor Unassigned, [place] [facility] 1.2840.114 350.1.13.10 4.2.7.2.686 [id number] 082 [id number] [facility] 2022-08-22 14:30:00 2022-08-22 15:31:53 Outpatient R MAGNUS MARTIN [facility] [id number] [facility] 2022-08-22 14:30:00 2022-08-22 15:31:53 Office Visit Magnus Martin [facility]Denise [facility] MEDICAL OFFICE BUILDING 1.840.114 350.1.13.10 4.2.7.2.686 [id number] 220 [id number] [facility] 2022-08-22 00:00:00 2022-08-22 00:00:00 Orders Only Doctor Unassigned, [place] [facility] 1.2840.114 350.1.13.10 4.2.7.2.686 [id number] [id number] [facility] 2022-08-20 00:00:00 2022-08-20 00:00:00 Telephone Magnus Martin [facility]Denise [facility] MEDICAL OFFICE BUILDING 1.840.114 350.1.13.10 4.2.7.2.686 [id number] 220 [id number] [facility] 2022-08-14 00:00:00 2022-08-14 00:00:00 [facility]Denise [facility] MEDICAL OFFICE BUILDING 1.2840.114 350.1.13.10 4.2.7.2.686 [id number] 220 [id number] [facility] 2022-07-12 00:00:00 2022-07-12 00:00:00 [facility] 1.84.114 350.1.13.10 4.2.7.2.686 [id number] 220 [id number] [facility] 2022-07-10 08:45:00 2022-07-10 09:45:24 Outpatient R ROYCE HERNÁNDEZ [facility] [id number] [facility] 2022-07-10 08:45:00 2022-07-10 09:00:00 [facility] 1..114 350.1.13.10 4.2.7.2.686 [id number] [facility] 2022-07-10 00:00:00 2022-07-10 00:00:00 Orders Only Doctor Unassigned, [place] [facility] 1.84.114 350.1.13.10 4.2.7.2.686 [id number] [id number] [facility] 2022-07-06 00:00:00 2022-07-06 00:00:00 Refill Rajni Momin [facility] NAL [facility]ILD[facility] 1.840.114 350.1.13.10 4.2.7.2.686 [id number] 044 [id number] [facility] 2022-07-03 00:00:00 2022-07-03 00:00:00 Refill Rajni Momin [facility] 1.84.114 350.1.13.10 4.2.7.2.686 [id number] 044 [id number] [facility] 2022-06-30 00:00:00 2022-06-30 00:00:00 Refill Jack Chang [facility] NAL BUILDING 1.2840.114 350.1.13.10 4.2.7.2.686 [id number] 044 [id number] [facility] 2022-05-16 00:00:00 2022-05-16 00:00:00 Telephone [facility] 1.2840.114 350.1.13.10 4.2.7.2.686 [id number] 220 [id number] [facility] 2022-05-07 00:00:00 2022-05-07 00:00:00 Refill Magnus Martin [facility]IE [facility] MED[facility] OFFICE BUILDING 1.2840.114 350.1.13.10 4.2.7.2.686 [id number] 220 [id number] [facility] 2022-04-24 00:00:00 2022-04-24 00:00:00 Orders Only Doctor Unassigned, [place] [facility] 1.840.114 350.1.13.10 4.2.7.2.686 [id number] 009 [id number] [facility] 2022-04-23 14:40:00 2022-04-23 15:48:41 Outpatient R RAJNI MOMIN [facility] [id number] [facility] 2022-04-23 14:40:00 2022-04-23 15:48:41 Office Visit Rajni Momin [facility] BU[facility] 1.2840.114 350.1.13.10 4.2.7.2.686 [id number] 044 [id number] [facility] 2022-04-23 00:00:00 2022-04-23 00:00:00 Telephone Rajni Momin [facility] 1.2840.114 350.1.13.10 4.2.7.2.686 [id number] 044 [id number] [facility] 2022-04-15 14:20:00 2022-04-15 14:20:00 Outpatient OSIRIS MEHTA [facility] [id number] [facility] 2022-04-14 00:00:00 2022-04-14 00:00:00 Telephone Rain Calle [facility] MEDICAL OFFICE BUILDING 1.2.840.114 350.1.13.10 4.2.7.2.686 [id number] 196 [id number] [facility] 2022-04-11 12:00:00 2022-04-11 23:59:00 Outpatient RAIN VICK [facility] [id number] [facility] 2022-04-11 09:54:48 2022-04-11 23:59:00 Hospital Encounter Rain Calle Peter Tze Man Bird, Aricka D Clancy, Connor L [facility] 1.840.114 350.1.13.10 4.2.7.2.686 [id number] [facility] 2022-04-10 00:00:00 2022-04-10 00:00:00 Jack Flynn [facility] 1.2.840.114 350.1.13.10 4.2.7.2.686 [id number] 044 [id number] [facility] 2022-04-07 00:00:00 2022-04-07 00:00:00 Telephone Magnus Martin [facility] 1..114 350.1.13.10 4.2.7.2.686 [id number] 220 [id number] [facility] 2022-04-03 08:45:00 2022-04-03 09:59:31 Outpatient ROYCE KENDALL [facility] [id number] [facility] 2022-04-03 08:45:00 2022-04-03 09:00:00 Office Visit Royce Hernández [email or web address] AND [facility] 1.2.840.114 350.1.13.10 4.2.7.2.686 [id number] [facility] 2022-04-03 00:00:00 2022-04-03 00:00:00 Telephone Magnus Martin [facility] [[email or web address] 1.2840.114 350.1.13.10 4.2.7.2.686 [id number] 220 [id number] [facility] 2022-04-03 00:00:00 2022-04-03 00:00:00 Refill Rain Calle [facility] MEDICAL OFFICE BUILDING 1.2.840.114 350.1.13.10 4.2.7.2.686 [id number] 196 [id number] [facility] 2022-04-03 00:00:00 2022-04-03 00:00:00 Refill Jack Chang [facility] 1.2.840.114 350.1.13.10 4.2.7.2.686 [id number] 044 [id number] [facility] 2022-03-31 13:00:00 2022-03-31 13:15:00 Office Visit Rajni Lucio [facility] MEDICAL OFFICE BUILDING 1.2.840.114 350.1.13.10 4.2.7.2.686 [id number] 196 [id number] [facility] 2022-03-31 13:00:00 2022-03-31 13:00:00 Outpatient R RAJNI LUCIO [facility] [id number] [facility] 2022-03-26 00:00:00 2022-03-26 00:00:00 Telephone Rajni Momin [facility] 1.2.840.114 350.1.13.10 4.2.7.2.686 [id number] [id number] [facility] 2022-03-25 14:30:00 2022-03-25 14:35:06 Delivery Clerk Visit 2, Adc Lab Osiris Miranda [facility] BU[facility] 1.840.114 350.1.13.10 4.2.7.2.686 [id number] [facility] 2022-03-25 14:30:00 2022-03-25 14:30:00 Outpatient R OSIRIS MIRANDA [facility] [id number] [facility] 2022-03-13 00:00:00 2022-03-13 00:00:00 Orders Only Doctor Unassigned, [place] [facility] 1.84.114 350.1.13.10 4.2.7.2.686 [id number] 009 [id number] [facility] 2022-03-10 08:30:00 2022-03-10 08:45:00 Office Visit Rain Calle, [facility] OFFICE BUILDING 1.84.114 350.1.13.10 4.2.7.2.686 [id number] [facility] 2022-03-10 08:30:00 2022-03-10 08:30:00 Outpatient KEE KAPLAN [facility] [id number] [facility] 2022-03-03 13:00:00 2022-03-03 13:20:54 Outpatient CASTILLO LOPEZ [facility] [id number] [facility] 2022-03-03 13:00:00 2022-03-03 13:20:54 Office Visit Castillo Guerra [facility] BU[facility] 1.840.114 350.1.13.10 4.2.7.2.686 [id number] [id number] [facility] 2022-02-20 00:00:00 2022-02-20 00:00:00 Patient Secure Msg Doctor Unassigned, [place] [facility] 1..840.114 350.1.13.10 4.2.7.2.686 [id number] [id number] [facility] 2022-02-18 14:20:00 2022-02-18 14:20:00 Outpatient R OISRIS MIRANDA [facility] [id number] [facility] 2022-02-14 15:30:00 2022-02-14 16:12:26 Outpatient R MAGNUS MARTIN [facility] [id number] [facility] 2022-02-14 15:30:00 2022-02-14 16:12:26 Office Visit Magnus Martin [facility] MEDICAL OFFICE BUILDING 1..840.114 350.1.13.10 4.2.7.2.686 [id number] [facility] 2022-02-14 00:00:00 2022-02-14 00:00:00 Orders Only Doctor Unassigned, [place] [facility] 1.2.840.114 350.1.13.10 4.2.7.2.686 [id number] [id number] [facility] 2022-02-10 14:40:00 2022-02-10 15:41:16 Outpatient R MARCIAL NORMAN HOWARD [facility] [id number] [facility] 2022-02-10 14:40:00 2022-02-10 15:41:16 Office Visit Marcial Norman [facility]Denise [facility] MEDICAL OFFICE BUILDING 1.2.840.114 350.1.13.10 4.2.7.2.686 [id number] [facility] 2022-02-05 13:30:00 2022-02-05 13:30:00 Outpatient R CHOPRADIANNE [facility] [id number] [facility] 2022-02-04 00:00:00 2022-02-04 00:00:00 Telephone [facility] 1.2.840.114 350.1.13.10 4.2.7.2.686 [id number] 044 [id number] [facility] 2022-02-03 00:00:00 2022-02-03 00:00:00 Telephone Magnus Martin [facility]Denise [facility] OFFICE BUILDING 1.2.840.114 350.1.13.10 4.2.7.2.686 [id number] 220 [id number] [facility] 2022-02-03 00:00:00 2022-02-03 00:00:00 Telephone Magnus Martin [facility]Denise [facility] OFFICE BUILDING 1..840.114 350.1.13.10 4.2.7.2.686 [id number] 220 [id number] [facility] 2022-01-31 00:00:00 2022-01-31 00:00:00 [facility]Denise [facility] BUILDING 1.2.840.114 350.1.13.10 4.2.7.2.686 [id number] 220 [id number] [facility] 2022-01-30 08:45:00 2022-01-30 09:00:00 Office Visit Royce Hernández [facility] 1.840.114 350.1.13.10 4.2.7.2.686 [id number] [facility] 2022-01-30 08:45:00 2022-01-30 08:45:00 Outpatient R ROYCE HERNÁNDEZ [facility] [id number] [facility] 2022-01-30 08:45:00 2022-01-30 08:45:00 Outpatient R ROYCE HERNÁNDEZ [facility] [id number] [facility] 2022-01-30 00:00:00 2022-01-30 00:00:00 Telephone Osiris Miranda [facility] 1.2.840.114 350.1.13.10 4.2.7.2.686 [id number] [facility] 2022-01-29 13:30:00 2022-01-29 13:30:00 Outpatient R DIANNE CHOPRA [facility] [id number] [facility] 2022-01-28 00:00:00 2022-01-28 00:00:00 Refill Osiris Miranda [facility] 1.2.840.114 350.1.13.10 4.2.7.2.686 [id number] 231 [id number] [facility] 2022-01-23 00:00:00 2022-01-23 00:00:00 Orders Only Doctor Unassigned, [place] [facility] 1.2840.114 350.1.13.10 4.2.7.2.686 [id number] 009 [id number] [facility] 2022-01-22 00:00:00 2022-01-22 00:00:00 Orders Only Doctor Unassigned, [place] [facility] 1.2840.114 350.1.13.10 4.2.7.2.686 [id number] 009 [id number] [facility] 2022-01-22 00:00:00 2022-01-22 00:00:00 Telephone Mitchell Vu [facility] 1.2.840.114 350.1.13.10 4.2.7.2.686 [id number] 059 [id number] [facility] 2022-01-22 00:00:00 2022-01-22 00:00:00 Telephone Mitchell Vu [facility] 1.2.840.114 350.1.13.10 4.2.7.2.686 [id number] 059 [id number] [facility] 2022-01-20 12:32:51 2022-01-20 23:59:00 Outpatient R MITCHELL VU [facility] [id number] [facility] 2022-01-20 12:32:51 2022-01-20 23:59:00 Hospital Encounter Mitchell Vu [facility] 1.2.840.114 350.1.13.10 4.2.7.2.686 [id number] [facility] 2022-01-20 11:00:00 2022-01-20 11:00:00 Outpatient KEE KAPLAN [facility] [id number] [facility] 2022-01-17 10:52:43 2022-01-17 11:54:00 Outpatient MITCHELL DENT [facility] [id number] [facility] 2022-01-17 11:15:00 2022-01-17 11:30:00 Delivery Clerk Visit 2, Adc Lab Rajni Momin [facility] 1.2.840.114 350.1.13.10 4.2.7.2.686 [id number] [facility] 2022-01-17 10:30:00 2022-01-17 10:58:34 Office Visit Mitchell Vu [facility] 1.2.840.114 350.1.13.10 4.2.7.2.686 [id number] 059 [id number] [facility] 2022-01-17 09:00:00 2022-01-17 10:02:35 Outpatient R RAJNI MOMIN [facility] [id number] [facility] 2022-01-17 09:00:00 2022-01-17 10:02:35 Office [facility] 1.2.840.114 350.1.13.10 4.2.7.2.686 [id number] 044 [id number] [facility] 2022-01-16 13:40:00 2022-01-16 13:40:00 Outpatient R OSIRIS MIRANDA [facility] [id number] [facility] 2022-01-08 00:00:00 2022-01-08 00:00:00 Telephone Osiris Miranda [facility] 1.2.840.114 350.1.13.10 4.2.7.2.686 [id number] 231 [id number] [facility] 2022-01-01 00:00:00 2022-01-01 00:00:00 Telephone Osiris Miranda Denise [facility] 1.2.840.114 350.1.13.10 4.2.7.2.686 [id number] 231 [id number] [facility] 2021-12-31 13:10:00 2021-12-31 13:10:00 Outpatient R BEATRICE VELEZ [facility] [id number] [facility] 2021-12-30 00:00:00 2021-12-30 00:00:00 Telephone Osiris Miranda Denise [facility] 1.2.840.114 350.1.13.10 4.2.7.2.686 [id number] [facility] 2021-12-24 00:00:00 2021-12-24 00:00:00 Telephone Osiris Miranda [facility] 1.2.840.114 350.1.13.10 4.2.7.2.686 [id number] 231 [id number] [facility] 2021-12-24 00:00:00 2021-12-24 00:00:00 Telephone [facility]iris [facility] BU[facility] 1.2.840.114 350.1.13.10 4.2.7.2.686 [id number] [id number] [facility] 2021-12-24 00:00:00 2021-12-24 00:00:00 Telephone Osiris Miranda [facility] 1.2.840.114 350.1.13.10 4.2.7.2.686 [id number] 231 [id number] [facility] 2021-12-18 00:00:00 2021-12-18 00:00:00 Telephone Osiris Miranda [facility] 1.2.840.114 350.1.13.10 4.2.7.2.686 [id number] 231 [id number] [facility] 2021-12-05 12:45:00 2021-12-05 12:45:00 Outpatient KEE KAPLAN [facility] [id number] [facility] 2021-11-28 08:45:00 2021-11-28 09:55:34 Outpatient ROYCE KENDALL [facility] [id number] [facility] 2021-11-28 08:45:00 2021-11-28 09:00:00 Office Visit Royce Hernández [facility] 1.2.840.114 350.1.13.10 4.2.7.2.686 [id number] [facility] 2021-11-28 08:45:00 2021-11-28 08:45:00 Outpatient ROYCE KENDALL [facility] [id number] [facility] 2021-11-28 08:45:00 2021-11-28 08:45:00 Outpatient R ROYCE HERNÁNDEZ [facility] [id number] [facility] 2021-11-27 00:00:00 2021-11-27 00:00:00 Telephone Osiris Miranda [facility] 1.2.840.114 350.1.13.10 4.2.7.2.686 [id number] [id number] [facility] 2021-11-25 13:30:00 2021-11-25 13:30:00 Outpatient R DIANNE CHOPRA [facility] [id number] [facility] 2021-11-14 15:00:00 2021-11-14 16:04:51 Outpatient R OSIRIS MIRANDA [facility] [id number] [facility] 2021-11-14 15:00:00 2021-11-14 16:04:51 Office Visit Osiris Miranda [facility] 1.2.840.114 350.1.13.10 4.2.7.2.686 [id number] [facility] 2021-11-14 15:00:00 2021-11-14 15:00:00 Outpatient R OSIRIS MIRANDA [facility] [id number] [facility] 2021-11-05 13:30:00 2021-11-05 13:30:00 Outpatient R BEATRICE VELEZ [facility] [id number] [facility] 2021-11-03 00:00:00 2021-11-03 00:00:00 Magnus Pe[facility] 1.2.840.114 350.1.13.10 4.2.7.2.686 [id number] [facility] 2021-10-29 00:00:00 2021-10-29 00:00:00 Telephone Magnus Martin [facility] 1.2.840.114 350.1.13.10 4.2.7.2.686 [id number] [facility] 2021-10-29 00:00:00 2021-10-29 00:00:00 Telephone Magnus Martin [facility] 1..840.114 350.1.13.10 4.2.7.2.686 [id number] [facility] 2021-10-28 13:00:00 2021-10-28 13:00:00 Outpatient KEE KAPLAN [facility] [id number] [facility] 2021-10-23 00:00:00 2021-10-23 00:00:00 Telephone Osiris Miranda [facility] 1..840.114 350.1.13.10 4.2.7.2.686 [id number] [facility] 2021-10-22 00:00:00 2021-10-22 00:00:00 Refill Dianne Chopra [facility] 1..840.114 350.1.13.10 4.2.7.2.686 [id number] [facility] 2021-10-22 00:00:00 2021-10-22 00:00:00 Refill Osiris Miranda [facility] 1.2.840.114 350.1.13.10 4.2.7.2.686 [id number] [facility] 2021-10-22 00:00:00 2021-10-22 00:00:00 Castillo [facility] 1.840.114 350.1.13.10 4.2.7.2.686 [id number] [facility] 2021-09-26 08:45:00 2021-09-26 09:00:00 Office Visit Royce Hernández [email or web address] 1.84.114 350.1.13.10 4.2.7.2.686 [id number] [facility] 2021-09-26 08:45:00 2021-09-26 08:45:00 Outpatient ROYCE KENDALL [facility] [id number] [facility] 2021-09-26 08:45:00 2021-09-26 08:45:00 Outpatient ROYCE KENDALL [facility] [id number] [facility] 2021-09-26 08:45:00 2021-09-26 08:45:00 Outpatient ROYCE KENDALL [facility] [id number] [facility] 2021-09-24 13:30:00 2021-09-24 13:30:00 Outpatient BEATRICE LITTLE [facility] [id number] [facility] 2021-09-23 13:30:00 2021-09-23 13:30:00 Outpatient KEE KAPLAN [facility] [id number] [facility] 2021-09-16 08:45:00 2021-09-16 08:45:00 Outpatient MAGNUS LAZO [facility] [id number] [facility] 2021-09-11 00:00:00 2021-09-11 00:00:00 [facility]phone [facility] OFFICE BUILDING 1..840.114 350.1.13.10 4.2.7.2.686 [id number] [facility] 2021-09-09 13:30:00 2021-09-09 13:30:00 Outpatient R NAVDIANNE [facility] [id number] [facility] 2021 00:00:00 2021 00:00:00 [facility]ill [facility]Denise [facility] MEDICAL OFFICE BUILDING 1.2.840.114 350.1.13.10 4.2.7.2.686 [id number] 220 [id number] [facility] 2021-09-04 00:00:00 2021-09-04 00:00:00 Reshma Magnus Martin [facility]Denise [facility] MEDICAL OFFICE BUILDING 1..840.114 350.1.13.10 4.2.7.2.686 [id number] 220 [id number] [facility] 2021-09-04 00:00:00 2021-09-04 00:00:00 Orders Only Doctor Unassigned, [place] [facility] 1.2840.114 350.1.13.10 4.2.7.2.686 [id number] [facility] 2021-09-03 14:20:00 2021-09-03 15:03:59 Outpatient R CASTILLO GUERRA [facility] [id number] [facility] 2021-09-03 14:20:00 2021-09-03 15:03:59 [facility] 1..840.114 350.1.13.10 4.2.7.2.686 [id number] [facility] 2021-09-03 14:20:00 2021-09-03 15:03:59 [facility] [id number] [facility] 2021-09-03 14:20:00 2021-09-03 14:20:00 Outpatient R CHARLIE, QIANGJUN [facility] [id number] [facility] 2021-09-03 14:20:00 2021-09-03 14:20:00 Outpatient [facility] [id number] [facility] 2021-09-02 00:00:00 2021-09-02 00:00:00 Telephone Veronica Magnus [facility]?KATIE [facility] MEDICAL OFFICE BUILDING 1..840.114 350.1.13.10 4.2.7.2.686 [id number] 220 [id number] [facility] 2021-08-26 00:00:00 2021-08-26 00:00:00 Telephone Martin, Magnus [facility]?KATIE [facility] MEDICAL OFFICE BUILDING 1..840.114 350.1.13.10 4.2.7.2.686 [id number] 220 [id number] [facility] 2021-08-22 15:00:00 2021-08-22 15:30:00 Nurse Visit Nurse, Ang Endo/Diab Osiris Miranda [facility] MEDICAL OFFICE BUILDING 1..840.114 350.1.13.10 4.2.7.2.686 [id number] [facility] 2021-08-22 15:00:00 2021-08-22 15:00:00 Outpatient R [facility] [id number] [facility] 2021-08-22 15:00:00 2021-08-22 15:00:00 Outpatient R OSIRIS MIRANDA [facility] [id number] [facility] 2021-08-22 00:00:00 2021-08-22 00:00:00 [facility]Denise [facility] MEDICAL OFFICE BUILDING 1..840.114 350.1.13.10 4.2.7.2.686 [id number] [facility] 2021-08-16 00:00:00 2021-08-16 00:00:00 Refill Veronica Magnus [facility]?KATIE [facility] MEDICAL OFFICE BUILDING 1.2.840.114 350.1.13.10 4.2.7.2.686 [id number] 220 [id number] [facility] 2021-08-14 14:30:00 2021-08-14 15:39:18 Outpatient R BERNARDO FREDERICREYES CHANG JACK [facility] [id number] [facility] 2021-08-14 14:30:00 2021-08-14 15:39:18 Office [facility] 1.2.840.114 350.1.13.10 4.2.7.2.686 [id number] [facility] 2021-08-14 14:30:00 2021-08-14 15:39:18 Outpatient R FRANK CHANGANGELITAMIGUEL CHANG JACK [facility] [id number] [facility] 2021-08-09 15:30:00 2021-08-09 16:12:17 Outpatient R MAGNUS MARTIN [facility] [id number] [facility] 2021-08-09 15:30:00 2021-08-09 16:12:17 Office Visit Magnus Martin [facility]?KATIE JON MEDICAL OFFICE BUILDING 1.2.840.114 350.1.13.10 4.2.7.2.686 [id number] [facility] 2021-08-08 12:00:00 2021-08-08 12:00:00 Outpatient R KEE EDMONDS [facility] [id number] [facility] 2021-08-01 00:00:00 2021-08-01 00:00:00 Telephone Osiris [facility] BUILDING 1.2.840.114 350.1.13.10 4.2.7.2.686 [id number] [facility] 2021-07-31 00:00:00 2021-07-31 00:00:00 Telephone Osiris Miranda [facility] BUILDING 1.2.840.114 350.1.13.10 4.2.7.2.686 [id number] [facility] 2021-07-30 14:00:00 2021-07-30 15:14:45 Outpatient R OSIRIS MIRANDA [facility] [id number] [facility] 2021-07-30 14:00:00 2021-07-30 15:14:45 Office Visit Osiris Miranda [facility] 1.2.840.114 350.1.13.10 4.2.7.2.686 [id number] [facility] 2021-07-30 14:00:00 2021-07-30 15:14:45 Outpatient R OSIRIS MIRANDA [facility] [id number] [facility] 2021-07-30 14:00:00 2021-07-30 15:14:45 Outpatient R OSIRIS MIRANDA [facility] [id number] [facility] 2021-07-30 14:00:00 2021-07-30 14:00:00 Outpatient R OSIRIS MIRANDA [facility] [id number] [facility] 2021-07-29 00:00:00 2021-07-29 00:00:00 Telephone Osiris Miranda [facility] BUILDING 1.2.840.114 350.1.13.10 4.2.7.2.686 [id number] [facility] 2021-07-25 08:45:00 2021-07-25 09:17:30 Outpatient R ROYCE HERNÁNDEZ [facility] [id number] [facility] 2021-07-25 08:45:00 2021-07-25 09:00:00 Office Visit Royce Hernández [facility] 1.114 350.1.13.10 4.2.7.2.686 [id number] [facility] 2021-07-25 08:45:00 2021-07-25 08:45:00 Outpatient R ROYCE HERNÁNDEZ [facility] [id number] [facility] 2021-07-25 00:00:00 2021-07-25 00:00:00 Orders Only Doctor Unassigned, [place] [facility] 1.114 350.1.13.10 4.2.7.2.686 [id number] [facility] 2021-07-22 00:00:00 2021-07-22 00:00:00 Telephone Osiris Miranda [facility] 1.114 350.1.13.10 4.2.7.2.686 [id number] [facility] 2021-07-21 00:00:00 2021-07-21 00:00:00 Refill Dianne Chopra [facility] 1..114 350.1.13.10 4.2.7.2.686 [id number] [facility] 2021-07-21 00:00:00 2021-07-21 00:00:00 Refill Osiris Miranda [facility] 1..114 350.1.13.10 4.2.7.2.686 [id number] [facility] 2021-07-21 00:00:00 2021-07-21 00:00:00 Refill MartinMagnus [facility]?KATIE [facility] MEDICAL OFFICE BUILDING 1.840.114 350.1.13.10 4.2.7.2.686 [id number] [facility] 2021-07-15 13:30:00 2021-07-15 13:30:00 [facility] [id number] [facility] 2021-06-14 00:00:00 2021-06-14 00:00:00 Telephone Magnus Martin [facility] MEDICAL OFFICE BUILDING 1.840.114 350.1.13.10 4.2.7.2.686 [id number] 220 [id number] [facility] 2021-06-13 12:15:00 2021-06-13 12:15:00 Outpatient [facility] [id number] [facility] 2021-06-13 12:15:00 2021-06-13 12:15:00 Outpatient [facility] [id number] [facility] 2021-06-13 00:00:00 2021-06-13 00:00:00 Telephone [facility]Magnus melo [facility]Denise [facility] MEDICAL OFFICE BUILDING 1.840.114 350.1.13.10 4.2.7.2.686 [id number] 220 [id number] [facility] 2021-06-04 00:00:00 2021-06-04 00:00:00 Telephone Magnus Martin [facility]ATIE [facility] MEDICAL OFFICE BUILDING 1..840.114 350.1.13.10 4.2.7.2.686 [id number] 220 [id number] [facility] 2021-06-03 00:00:00 2021-06-03 00:00:00 Major MartinMagnus [facility] BUILDING 1.840.114 350.1.13.10 4.2.7.2.686 [id number] [facility] 2021-05-23 08:45:00 2021-05-23 10:18:33 Outpatient R ROYCE HERNÁNDEZ [facility] [id number] [facility] 2021-05-23 08:45:00 2021-05-23 10:18:33 Office Visit Royce Hernández [facility] 1.840.114 350.1.13.10 4.2.7.2.686 [id number] [facility] 2021-05-23 08:45:00 2021-05-23 10:18:33 Outpatient R ROYCE HERNÁNDEZ [facility] [id number] [facility] 2021-05-23 08:45:00 2021-05-23 08:45:00 [facility] [id number] [facility] 2021-05-07 00:00:00 2021-05-07 00:00:00 Telephone Rajni Momin [facility] 1..840.114 350.1.13.10 4.2.7.2.686 [id number] [facility] 2021-05-07 00:00:00 2021-05-07 00:00:00 Patient Secure Msg Doctor Unassigned, [place] [facility] 1.840.114 350.1.13.10 4.2.7.2.686 [id number] [facility] 2021-05-06 14:00:00 2021-05-06 15:21:21 Outpatient R JACK CHANG OGECHUKWU [facility] [id number] [facility] 2021-05-06 14:00:00 2021-05-06 15:21:21 Office Visit Jack Chang [facility] NAL BUILDING 1.2.840.114 350.1.13.10 4.2.7.2.686 [id number] [facility] [id number] [facility] 2021-05-06 14:00:00 2021-05-06 15:21:21 Outpatient R JACK CHANG OGECHUKWU [facility] [id number] [facility] 2021-05-01 14:40:00 2021-05-01 14:40:00 Outpatient R YULI SEE [facility] [id number] [facility] 2021-04-30 00:00:00 2021-04-30 00:00:00 Refill Osiris Miranda [facility] 1.2.840.114 350.1.13.10 4.2.7.2.686 [id number] [facility] 2021-04-19 00:00:00 2021-04-19 00:00:00 Telephone Osiris Miranda [facility] 1.2.840.114 350.1.13.10 4.2.7.2.686 [id number] [facility] 2021-04-18 09:08:19 2021-04-18 23:59:00 Outpatient R OSIRIS MIRANDA [facility] [id number] [facility] 2021-04-18 09:08:19 2021-04-18 23:59:00 Hospital Encounter Osiris Miranda [facility] 1.2.840.114 350.1.13.10 4.2.7.2.686 [id number] [facility] 2021-04-18 09:08:19 2021-04-18 23:59:00 Outpatient R OSIRIS MIRANDA [facility] [id number] [facility] 2021-04-17 14:40:00 2021-04-17 14:40:00 Outpatient R YULI SEE [facility] [id number] [facility] 2021-04-17 14:40:00 2021-04-17 14:40:00 Outpatient R YULI SEE [facility] [id number] [facility] 2021-04-15 13:45:00 2021-04-15 13:45:00 Outpatient R NAV DIANNE [facility] [id number] [facility] 2021-04-01 14:20:00 2021-04-01 16:02:29 Outpatient R OSIRIS MIRANDA [facility] [id number] [facility] 2021-04-01 14:20:00 2021-04-01 16:02:29 Office Visit Osiris Miranda [facility] NAL BUILDING 1.2.840.114 350.1.13.10 4.2.7.2.686 [id number] [facility] 2021-04-01 14:20:00 2021-04-01 14:20:00 Outpatient R OSIRIS MIRANDA [facility] [id number] [facility] 2021-03-26 00:00:00 2021-03-26 00:00:00 Telephone Magnus Martin [facility]?KATIE JON MEDICAL OFFICE BUILDING 1.2.840.114 350.1.13.10 4.2.7.2.686 [id number] [facility] 2021-03-25 09:15:00 2021-03-25 09:15:00 Outpatient MAGNUS LAZO [facility] [id number] [facility] 2021-03-25 08:36:43 2021-03-25 08:51:43 Delivery Clerk Visit Lab, Alfred Posey [facility] BUILDING 1.2.840.114 350.1.13.10 4.2.7.2.686 [id number] [facility] 2021-03-22 15:00:00 2021-03-22 16:07:28 Outpatient R MAGNUS MARTIN [facility] [id number] [facility] 2021-03-22 15:00:00 2021-03-22 16:07:28 Outpatient R MAGNUS MARTIN [facility] [id number] [facility] 2021-03-22 15:00:00 2021-03-22 16:07:28 Office Visit Magnus Martin [facility]?KATIE [facility] BU[facility] 1.2.840.114 350.1.13.10 4.2.7.2.686 [id number] [facility] 2021-03-22 15:00:00 2021-03-22 15:00:00 Outpatient R MAGNUS MARTIN [facility] [id number] [facility] 2021-03-22 00:00:00 2021-03-22 00:00:00 Major Veronica [facility]?KATIE [facility] MEDICAL OFFICE BUILDING 1.2.840.114 350.1.13.10 4.2.7.2.686 [id number] [facility] 2021-03-21 08:15:00 2021-03-21 10:19:53 Outpatient R ROYCE HERNÁNDEZ [facility] [id number] [facility] 2021-03-21 08:03:53 2021-03-21 08:18:53 Office Visit Royce Hern[facility]dez [facility] 1.114 350.1.13.10 4.2.7.2.686 [id number] [facility] 2021-03-21 08:15:00 2021-03-21 08:15:00 Outpatient R ROYCE HERNÁNDEZ [facility] [id number] [facility] 2021-03-11 13:30:00 2021-03-11 13:30:00 Outpatient R CHOPRA, [facility] [id number] [facility] 2021-02-01 00:00:00 2021-02-01 00:00:00 [facility] 1.840.114 350.1.13.10 4.2.7.2.686 [id number] [facility] 2021-01-28 13:00:00 2021-01-28 13:00:00 Outpatient R NAV [facility] [id number] [facility] 2021-01-24 09:00:00 2021-01-24 09:00:00 Outpatient R ROYCE HERNÁNDEZ [facility] [id number] [facility] 2021-01-24 08:29:46 2021-01-24 08:44:46 Office [facility]ce [facility] 1..114 350.1.13.10 4.2.7.2.686 [id number] [facility] 2021-01-18 00:00:00 2021-01-18 00:00:00 Telephone Magnus Martin [facility]?Katie jon Medical Office Building 1..840.114 350.1.13.10 4.2.7.2.686 [id number] [facility] 2021-01-17 00:00:00 2021-01-17 00:00:00 Orders Only Doctor Unassigned, [place] [facility] 1.2840.114 350.1.13.10 4.2.7.2.686 [id number] [facility] 2021-01-09 00:00:00 2021-01-09 00:00:00 Patient Outreach [facility] 1.2840.114 350.1.13.10 4.2.7.2.686 [id number] [facility] 2021-01-08 00:00:00 2021-01-08 00:00:00 Telephone Osiris Miranda [facility] 1.2840.114 350.1.13.10 4.2.7.2.686 [id number] [facility] 2021-01-01 00:00:00 2021-01-01 00:00:00 Orders Only Doctor Unassigned, [place] [facility] 1.2840.114 350.1.13.10 4.2.7.2.686 [id number] [facility] 2020-12-28 15:00:00 2020-12-28 15:00:00 Outpatient MAGNUS LAZO [facility] [id number] [facility] 2020-12-27 00:00:00 2020-12-27 00:00:00 Rajni Perera [facility] 1.2840.114 350.1.13.10 4.2.7.2.686 [id number] [facility] 2020-12-27 00:00:00 2020-12-27 00:00:00 Magnus Peña [facility] 1.2840.114 350.1.13.10 4.2.7.2.686 [id number] [facility] 2020-12-27 00:00:00 2020-12-27 00:00:00 Dianne Peraza [facility] 1.2.840.114 350.1.13.10 4.2.7.2.686 [id number] [facility] 2020-11-29 08:15:00 2020-11-29 08:15:00 Outpatient R ROYCE HERNÁNDEZ [facility] [id number] [facility] 2020-11-28 09:00:00 2020-11-28 09:00:00 Outpatient JUSTYN LYNN [facility] [id number] [facility] 2020-11-20 14:20:00 2020-11-20 14:20:00 Outpatient OSIRIS MEHTA [facility] [id number] [facility] 2020-08-29 14:00:00 2020-08-29 14:00:00 Outpatient R CASTILLO GUERRA [facility] [id number] [facility] 2020-08-27 14:00:00 2020-08-27 14:00:00 Outpatient OSIRIS MEHTA [facility] [id number] [facility] 2020-07-30 13:00:00 2020-07-30 13:00:00 Outpatient R DIANNE CHOPRA [facility] [id number] [facility] 2020-07-02 13:00:00 2020-07-02 13:00:00 [id number] 2020-06-29 15:30:00 2020-06-29 16:35:42 Outpatient MAGNUS LAZO [facility] [id number] [facility] 2020-06-04 13:00:00 2020-06-04 13:00:00 [facility] [id number] [facility] 2020-05-17 13:40:00 2020-05-17 13:40:00 Outpatient R OSIRIS MIRANDA [facility] [id number] [facility] 2020-05-07 10:30:00 2020-05-07 10:30:00 Outpatient R NAV [facility] [id number] [facility] 2020-04-23 14:00:00 2020-04-23 14:00:00 Outpatient R NAV [facility] [id number] [facility] 2020-03-19 13:30:00 2020-03-19 13:30:00 Outpatient R NAV [facility] [id number] [facility] 2020-02-29 13:34:05 2020-02-29 13:54:05 [place] [address].2.840.114 350.1.13.10 4.2.7.2.686 [id number] 2020-02-29 13:40:00 2020-02-29 13:40:00 Outpatient [facility] [id number] [facility] 2020-02-29 00:00:00 2020-02-29 00:00:00 Telephone Magnus Martin [address]2.840.114 350.1.13.10 4.2.7.2.686 [id number] 2020-02-28 10:00:00 2020-02-28 10:00:00 [facility] [id number] [facility] 2020-02-23 11:00:00 2020-02-23 11:00:00 Outpatient R [facility] [id number] [facility] 2020-02-17 08:40:00 2020-02-17 08:40:00 Outpatient R OSIRIS MIRANDA [facility] [id number] [facility] 2020-02-17 00:00:00 2020-02-17 00:00:00 Patient [facility] 1.2.840.114 350.1.13.10 4.2.7.2.686 [id number] [facility] 2020-02-15 11:00:00 2020-02-15 11:00:00 Outpatient R [facility] [id number] [facility] 2020-02-09 09:00:00 2020-02-09 09:00:00 [facility] [id number] [facility] 2020-02-09 00:00:00 2020-02-09 00:00:00 Patient Secure Msg Guerra [facility] 1.2.840.114 350.1.13.10 4.2.7.2.686 [id number] [facility] 2020-02-08 13:00:00 2020-02-08 13:00:00 Outpatient R [facility] [id number] [facility] 2020-02-01 08:00:00 2020-02-01 08:00:00 Outpatient R [facility] [id number] [facility] 2020-01-30 13:00:00 2020-01-30 13:00:00 Outpatient R NAV [facility] [id number] [facility] 2020-01-30 00:00:00 2020-01-30 00:00:00 Orders Only Doctor Unassigned, [place] [facility] 1.2.840.114 350.1.13.10 4.2.7.2.686 [id number] 2020-01-02 11:00:00 2020-01-02 11:00:00 Outpatient R NAV [facility] [id number] [facility] 2019-12-28 10:20:00 2019-12-28 10:20:00 Outpatient R CHARLIECASTILLO [facility] [id number] [facility] 2019-12-23 11:00:00 2019-12-23 11:00:00 Outpatient R MAGNUS MARTIN [facility] [id number] [facility] 2019-12-01 09:45:00 2019-12-01 09:45:00 Outpatient R ROYCE HERNÁNDEZ [facility] [id number] [facility] 2019-11-22 13:30:00 2019-11-22 13:30:00 Outpatient R PENELOPE JENNINGS [facility] [id number] [facility] 2019-10-06 14:30:00 2019-10-06 14:30:00 Outpatient R PENELOPE JENNINGS [facility] [id number] [facility] 2019-10-05 13:00:00 2019-10-05 13:00:00 Outpatient R CHARLIEZAIRAAKIN [facility] [id number] [facility] 2019-10-03 11:30:00 2019-10-03 11:30:00 Outpatient SANDEEP SOLORZANO [facility] [id number] [facility] 2019-08-31 10:00:00 2019-08-31 10:00:00 Outpatient STEFFEN ROLLINS DENISE [facility] [id number] [facility] 2019-08-25 13:00:00 2019-08-25 13:00:00 Outpatient PENELOPE CARDENAS [facility] [id number] [facility] 2019-08-24 09:45:00 2019-08-24 09:45:00 Outpatient Ann CHOPRA DIANNE [facility] [id number] [facility] 2019-08-12 12:00:00 2019-08-12 12:00:00 Outpatient R MAGNUS MARTIN [facility] [id number] [facility] 2019-08-10 10:00:00 2019-08-10 10:00:00 Outpatient R BIANKA DENAMARCIAELISE GRANT [facility] [id number] [facility] 2019-08-01 13:30:00 2019-08-01 13:30:00 Outpatient R ABEL NAHUNSANJU [facility] [id number] [facility] 2019-07-29 11:30:00 2019-07-29 11:30:00 [facility] [id number] [facility] 2019-07-19 09:00:00 2019-07-19 09:00:00 Outpatient R HONG COULTER [facility] [id number] [facility] 2019-07-12 14:30:00 2019-07-12 14:30:00 Outpatient R PENELOPE JENNINGS [facility] [id number] [facility] 2019-07-08 09:45:00 2019-07-08 09:45:00 Outpatient R ROYCE HERNÁNDEZ [facility] [id number] [facility] 2019-07-05 13:00:00 2019-07-05 13:00:00 Outpatient R CASTILLO GUERRA [facility] [id number] [facility] 2019-06-03 13:49:29 2019-06-03 16:34:00 Emergency X BOO LOZOYA [facility] [[email or web address] ERT [id number] [facility] 2019-05-09 13:17:08 2019-05-09 23:59:00 Outpatient R JUSTYN PHILLIPS [facility] [id number] [facility] 2015-01-10 00:00:00 2015-01-10 00:00:00 Patient Secure Magnus Monk [facility] [[email or web address] [id number] [facility] 2012-04-16 00:00:00 2012-04-16 10:49:00 [facility] [id number] [facility] 2012-04-16 00:00:00 2012-04-16 09:38:00 [facility] [id number] [facility] 2012-03-31 00:00:00 2012-03-31 15:18:00 [facility] [id number] [facility] 2012-03-08 00:00:00 2012-03-08 12:44:00 [facility] [id number] [facility] 2011-12-18 00:00:00 2011-12-18 10:39:00 [facility] [id number] [facility] 2011-12-15 00:00:00 2011-12-15 09:44:00 [facility] [id number] [facility] 2011-11-20 00:00:00 2011-11-20 11:43:00 [facility] [id number] [facility] 2011-08-22 00:00:00 2011-08-22 12:40:00 [facility] [id number] [facility] 2011-08-15 00:00:00 2011-08-15 09:17:00 [facility] [id number] [facility] 2011-08-13 00:00:00 2011-08-13 14:46:00 [facility] [id number] [facility] 2011-08-06 00:00:00 2011-08-06 09:20:00 [facility] [id number] [facility] 2011-07-07 00:00:00 2011-07-07 11:30:00 [facility] [id number] [facility] 2011-05-30 00:00:00 2011-05-30 13:44:00 [facility] [id number] [facility] 2011-05-14 00:00:00 2011-05-14 13:39:00 [facility] [id number] [facility] 2011-05-05 00:00:00 2011-05-05 16:02:00 Outpatient [facility] [id number] [facility] 2011-04-16 00:00:00 2011-04-16 11:26:00 Outpatient [facility] [id number] [facility] 2011-03-19 00:00:00 2011-03-19 16:11:00 Outpatient [facility] [id number] [facility] 2011-02-12 00:00:00 2011-02-12 12:46:00 Outpatient [facility] [id number] [facility] Results Test Description Test Time Test Comments Results Result Comments Source Intravitreal Injection, Pharmacologic Agent - OS - Left Eye 2024-12 16:32:3 2 Table formatting from the original result was not included.Time Out12/15/2024. 11:31 AM. Confirmed correct patient, procedure, site, and patient consented. AnesthesiaSubconjunctival anesthesia was used. Anesthetic medications included Lidocaine 3.5% gel. ProcedurePreparation included 5% betadine to ocular surface. A 32 gauge needle was used. Injection:1.25 mg bevacizumab 1.25 mg/0.05 mL ?Route: Intravitreal, Site: Left Eye ?[facility]: [address]-2, Lot: [id number], Expiration date: 02/24/2025 Post-opPost injection exam found visual acuity of at least counting fingers. The patient tolerated the procedure well. There were no complications. The patient received written and verbal post procedure care education. Post injection medications were not given. Notes Date of Service: 12/15/2024 Time out:Individual performing procedure identifiedCorrect patientCorrect siteCorrect procedure Surgeon: Royce Meléndez MD Eye: left PROCEDURE: Avastin left eye Allergies: Allergies Allergen Reactions Amoxicillin Unknown - See comments ?Blurry vision Bactrim [Sulfamethoxazole-Trimethopr im] Unknown - See comments Codeine Unknown - See comments ?Patient states it makes her feel worse, pain increases Flagyl [Metronidazole] Other - See comments ?Throat swelling Morphine Anxiety Phenergan [Promethazine Hcl] Nausea and/or Vomiting Tramadol Anxiety ?Pt felt "weird" Prep: Proparacaine and Betadine 5% ? Anesthesia: Akten 3.5% Kaitlin Watson ?12/15/2024 ?10:50 AM [facility] DIABETES TESTING REPORTS 2024-11 21:10:4 4 Ordered by an unspecified provider. [facility]PPLY [id number] 16:25:55 Ordered by an unspecified provider.[facility] CenterVitamin D, [id number] 01:35:30* Test Item Value Reference Range Interpretation Comme nts VIT D 25OH (test code = 26670-4) 39 ng/mL 25-80 SAM (test code = SAM) Deficiency: <20 ng/mLInsufficiency : 20-24 ng/mLOptimal: 25-80 ng/mL Lab Interpretation (test code = 60280-5) Normal [facility] CenterThyroid Stimulating [id number] 23:50:10 * Test Item Value Reference Range Interpretation Comme nts TSH (test code = 0559512732) 1.68 0.45-4.70 Biotin has been reported to cause a negative bias, interpret results relative to patient's use of biotin. Lab Interpretation (test code = 81298-6) Normal [facility] CenterLipid Panel (38781)(Total Cholesterol, Triglycerides, HDL)2024-05-11 23:49:29* Test Item Value Reference Range Interpretation Comme nts CHOL (test code = 0677453032) 232 mg/dL 120-200 H HDL (test code = 2645187190) 107 mg/dL >=50 HDLC RATIO (test code = 2287527787) 2.2 <=4.5 TRIG (test code = 8825480840) 103 mg/dL 30-170 LDL CHOL (test code = 60461-4) 104 mg/dL <=160 VLDL (test code = 1560592750) 21 mg/dL 5-60 Lab Interpretation (test cod e = 35221-1) Abnormal [facility] [id number] 23:36:48* Test Item Value Reference Range Interpretation Comme nts FREE T4 (test code = 5137648241) 1.21 ng/dL 0.78-2.20 Lab Interpretation (test cod e = 46428-4) Normal [facility] [id number] 23:36:28* Test Item Value Reference Range Interpretation Comme [facility] FREE T3 (test code = 7790349961) 3.35 pg/mL 2.77-5.27 Lab Interpretation (test cod e = 80348-3) Normal [facility] CenterComp. Metabolic Panel (91710)2024-05-11 23:23:04* Test Item Value Reference Range Interpretation Comme nts NA (test code = 6678072279) 139 mmol/L 135-145 K (test code = 7925532818) 4.4 mmol/L 3.5-5.0 CL (test code = 2692942309) 103 mmol/L 98-108 CO2 TOTAL (test code = 2365555246) 29 mmol/L 23-31 AGAP (test code = 9194386801) 7 2-16 BUN (test code = 7546473771) 17 mg/dL 7-23 GLUCOSE (test code = 3628294167) 197 mg/dL 70-110 H CREATININE (test code = 2160-0) 0.61 mg/dL 0.50-1.04 TOTAL BILI (test code = 2180845676) 0.6 mg/dL 0.1-1.1 CALCIUM (test code = 4880241791) 9.8 mg/dL 8.6-10.6 T PROTEIN (test code = 4910682040) 7.8 g/dL 6.3-8.2 ALBUMIN (test code = 7407837895) 4.5 g/dL 3.5-5.0 ALK PHOS (test code = 6633019842) 115 U/L 34-122 ALTv (test code = 1742-6) 28 U/L 5-35 AST(SGOT) (test code = 1551699361) 42 U/L 13-40 H eGFR (test code = 83315-0) 96.3 mL/min/1.73m2 CKD-EPI eGFR (2020). Assuming creatinine has been stable day-to-day for at least three months, the eGFR indicates Category G1 (>= 90 mL/min/1.73 m2) Lab Interpretation (test code = 37357-9) Abnormal [facility] CenterGlycosylated Hemoglobin (A1C)2024-05-11 22:08:02* Test Item Value Reference Range Interpretation Comme nts HGB A1C (test code = 4548-4) 7.9 % 4.0-5.7 H SAM (test code = SAM) Reference RangesNormal: <5.7%Prediabetes: 5.7 - 6.4%Diabetes: > 6.5% Lab Interpretation (test code = 83581-1) Abnormal [facility] with [id number] 21:38:36* Test Item Value Reference Range Interpretation Comme nts WBC (test code = 6690-2) 9.09 4.30-11.10 RBC (test code = 789-8) 4.38 3.93-5.25 HGB (test code = 718-7) 13.6 g/dL 11.6-15.0 HCT (test code = 4544-3) 41.1 % 35.7-45.2 MCV (test code = 787-2) 93.8 fL 80.6-95.5 MCH (test code = 785-6) 31.1 pg 25.9-32.8 MCHC (test code = 786-4) 33.1 g/dL 31.6-35.1 RDW-SD (test code = 27661-9) 43.8 fL 39.0-49.9 RDW-CV (test code = 788-0) 12.6 % 12.0-15.5 PLT (test code = 777-3) 247 166-358 MPV (test code = 97293-4) 10.5 fL 9.5-12.9 NRBC/100 WBC (test code = 3841764961) 0.0 0.0-10.0 NRBC x10^3 (test code = 0536213752) See_Comment [Automated me ssage] The system which generated this result transmitted reference range: 10*3/?L. The reference range was not used to interpret this result as normal/abnormal. GRAN MAT (NEUT) % (test code = 770-8) 59.5 % IMM GRAN % (test code = 2130685634) 0.20 % LYMPH % (test code = 736-9) 33.8 % MONO % (test code = 5905-5) 5.1 % EOS % (test code = 713-8) 0.8 % BASO % (test code = 706-2) 0.6 % GRAN MAT x10^3(ANC) (test code = 3556418265) 5.42 10*3/uL 1.88-7.09 IMM GRAN x10^3 (test code = 6896438212) 0.00-0.06 LYMPH x10^3 (test code = 731-0) 3.07 10*3/uL 1.32-3.29 MONO x10^3 (test code = 742-7) 0.46 10*3/uL 0.33-0.92 EOS x10^3 (test code = 711-2) 0.07 10*3/uL 0.03-0.39 BASO x10^3 (test code = 704-7) 0.05 10*3/uL 0.01-0.07 [facility] CenterPOCT Hemoglobin A1C [id number] 16:54:00* Test Item Value Reference Range Interpretation Comme nts POCT HBA1C (test code = 4548-4) 7.8 % 4-6 A Lab Interpretation (test cod e = 96419-6) Abnormal [facility] CenterDME/SUPPLY [id number] 16:03:32 Ordered by an unspecified provider.[facility] Intravitreal Injection, Pharmacologic Agent - OS - Left [id number] 16:19:54 Table formatting from the original result was not included.Time Out12/03/2023. 11:19 AM. Confirmed correct patient, procedure, site, and patient consented. AnesthesiaTopical anesthesia was used. Anesthetic medications included Lidocaine 3.5% gel. ProcedurePreparation included 5% betadine to ocular surface. A 32 gauge needle was used. Injection:1.25 mg bevacizumab 1.25 mg/0.05 mL ?Route: Intravitreal, Site: Left Eye ?[facility]: [address]-8, Lot: [id number], Expiration date: 02/26/2024 Post-opPost injection exam found visual acuity of at least counting fingers. The patient tolerated the procedure well. There were no complications. The patient received written and verbal post procedure care education. Post injection medications were not given. Notes Date of Service: 12/03/2023 Time out:Individualperforming procedure identifiedCorrect patientCorrect siteCorrect procedure Surgeon: Royce [...] Betadine 5% ? Anesthesia: Akten 3.5% Leonarda Hyun ?12/03/2023 ?10:47 AMThe [facility] Vitamin D, [id number] 04:08:38* Test Item Value Reference Range Interpretation Comme nts VIT D 25OH (test code = 46509-7) 46 ng/mL 25-80 SAM (test code = SAM) Deficiency: <20 ng/mLInsufficiency : 20-24 ng/mLOptimal: 25-80 ng/mL Lab Interpretation (test code = 24714-9) [facility] CenterThyroid Stimulating [id number] 23:28:32 * Test Item Value Reference Range Interpretation Comme nts TSH (test code = 7443777016) 1.20 0.45-4.70 Lab Interpretation (test cod e = 82997-8) [facility] [id number] 23:15:14* Test Item Value Reference Range Interpretation Comme nts FREE T4 (test code = 4925844964) 1.16 0.78-2.20 Lab Interpretation (test cod e = 33558-3) [facility] [id number] 23:14:52* Test Item Value Reference Range Interpretation Comme nts FREE T3 (test code = 0269630749) 3.32 pg/mL 2.77-5.27 Lab Interpretation (test cod e = 40646-5) Normal [facility] CenterGlycosylated Hemoglobin (A1C)2023-11-06 23:02:22* Test Item Value Reference Range Interpretation Comme nts HGB A1C (test code = 4548-4) 7.5 % 4.0-5.7 H SAM (test code = SAM) Reference RangesNormal: <5.7%Prediabetes: 5.7 - 6.4%Diabetes: > 6.5% Lab Interpretation (test code = 42049-2) Abnormal [facility] CenterLipid Panel (98760)(Total Cholesterol, Triglycerides, HDL)2023-11-06 23:00:28* Test Item Value Reference Range Interpretation Comme nts CHOL (test code = 6821907244) 210 mg/dL 120-200 H HDL (test code = 8617560014) 92 mg/dL >=50 HDLC RATIO (test code = 3775772653) 2.3 <=4.5 TRIG (test code = 3738471401) 81 mg/dL 30-170 LDL CHOL (test code = 41698-5) 102 mg/dL <=160 VLDL (test code = 8688111160) 16 mg/dL 5-60 Lab Interpretation (test cod e = 15064-5) Abnormal [facility] CenterComp. Metabolic Panel (87645)2023-11-06 23:00:27* Test Item Value Reference Range Interpretation Comme nts NA (test code = 9540980821) 137 mmol/L 135-145 K (test code = 9174858977) 4.3 mmol/L 3.5-5.0 CL (test code = 8651467720) 101 mmol/L 98-108 CO2 TOTAL (test code = 5996339997) 30 mmol/L 23-31 AGAP (test code = 3253531295) 6 2-16 BUN (test code = 1403208288) 18 mg/dL 7-23 GLUCOSE (test code = 5439593509) 230 mg/dL 70-110 H CREATININE (test code = 2160-0) 0.63 mg/dL 0.50-1.04 TOTAL BILI (test code = 8341605302) 0.6 mg/dL 0.1-1.1 CALCIUM (test code = 3811537852) 9.3 mg/dL 8.6-10.6 T PROTEIN (test code = 8502945910) 7.6 g/dL 6.3-8.2 ALBUMIN (test code = 6362991676) 4.1 g/dL 3.5-5.0 ALK PHOS (test code = 4868650842) 132 U/L 34-122 H ALTv (test code = 1742-6) 17 U/L 5-35 AST(SGOT) (test code = 5052520199) 26 U/L 13-40 eGFR (test code = 54313-3) 95.6 mL/min/1.73m2 CKD-EPI eGFR (2020). Assuming creatinine has been stable day-to-day for at least three months, the eGFR indicates Category G1 (>= 90 mL/min/1.73 m2) Lab Interpretation (test code = 27720-0) Abnormal [facility] with [id number] 22:03:43* Test Item Value Reference Range Interpretation [...] 32.4 g/dL 31.6-35.1 RDW-SD (test code = 57449-4) 45.9 fL 39.0-49.9 RDW-CV (test code = 788-0) 13.1 % 12.0-15.5 PLT (test code = 777-3) 219 166-358 MPV (test code = 03899-2) 10.8 fL 9.5-12.9 NRBC/100 WBC (test code = 2026208012) 0.0 0.0-10.0 NRBC x10^3 (test code = 2007411159) See_Comment [Automated Spinlistera ge] The system which generated this result transmitted reference range: 10*3/?L. The reference range was not used to interpret this result as normal/abnormal. GRAN MAT (NEUT) % (test code = 770-8) 60.4 % IMM GRAN % (test code = 7193429609) 0.30 % LYMPH % (test code = 736-9) 34.2 % MONO % (test code = 5905-5) 4.3 % EOS % (test code = 713-8) 0.1 % BASO % (test code = 706-2) 0.7 % GRAN MAT x10^3(ANC) (test code = 0724685993) 4.59 10*3/uL 1.88-7.09 IMM GRAN x10^3 (test code = 9172749956) 0.00-0.06 LYMPH x10^3 (test code = 731-0) 2.60 10*3/uL 1.32-3.29 MONO x10^3 (test code = 742-7) 0.33 10*3/uL 0.33-0.92 EOS x10^3 (test code = 711-2) 0.03-0.39 L BASO x10^3 (test code = 704-7) 0.05 10*3/uL 0.01-0.07 Lab Interpretation (test code = 15252-8) Abnormal [facility] CenterIntravitreal Injection, Pharmacologic Agent - OS - Left [id number] 15:58:35Table formatting from the original result was not included.Time Out10/29/2023. 10:58 AM. Confirmed correct patient, procedure, site, and patient consented. AnesthesiaTopical anesthesia was used. Anesthetic medications included Lidocaine 3.5% gel, Proparacaine 0.5%. ProcedurePreparation included 5% betadine to ocular surface. A 32 gauge needle was used. Injection:1.25 mg bevacizumab 1.25 mg/0.05 mL?Route: Intravitreal, Site: Left Eye ?[facility]: [address]-9, Lot: [id number], Expiration date: 02/05/2024 Post- opPost injection exam [...] Anesthesia: Akten 3.5% Ev Coombs ?10/29/2023 ?10:28 AMUnThe [facility] 2023-10-06 17:26:51Ordered by an unspecified provider.[facility] CenterIntravitreal Injection, Pharmacologic Agent - OS - Left Eye 2023-10-01 18:27:55Table formatting from the original result was not included.Time Out10/01/2023. 1:27 PM. Confirmed correct patient, procedure, site, and patient consented. AnesthesiaTopical anesthesia was used. Anesthetic medications included Lidocaine 3.5% gel, Proparacaine 0.5%. ProcedurePreparation included 5% betadine to ocular surface. A 32 gauge needle was used. Injection:1.25 mg bevacizumab 1.25 mg/0.05 mL ?Route: Intravitreal, Site: Left Eye ?[facility]: [address]-0, Lot: [id number], Expiration date: 01/14/2024 Post- opPost injection exam found visual acuity [...] Anesthesia: Akten 3.5% Keke Chery ?10/01/2023 ?1:07 PM [facility] - [id number] 18:28:20Ordered by an unspecified provider.[facility] CenterIntravitreal Injection, Pharmacologic Agent - OS - Left [id number] 17:31:36Table formatting from the original result was not included.Time Out08/13/2023. 12:31 PM. Confirmed correct patient, procedure, site, and patient consented. AnesthesiaTopical anesthesia was used. Anesthetic medications included Lidocaine 3.5% gel. ProcedurePreparation included 5% betadine to ocular surface. A 32 gauge needle was used. Injection:1.25 mg bevacizumab 1.25 mg/0.05 mL ?Route: Intravitreal, Site: Left Eye ?[facility]: [address]-2, Lot: [id number], Expiration date: 11/05/2023 Post-opPost injection exam found visual acuity of at least counting fingers. The patient tolerated the procedure well. There were no complications. The patient received written and verbal post procedure care education. Post injection medications were not given. Notes Date of Service: 08/13/2023 Time out:Individualperforming procedure identifiedCorrect patientCorrect siteCorrect procedure Surgeon: Royce [...] Prep: Betadine 5% ? Anesthesia: Akten 3.5% DORETHA LOZADA ?08/13/2023 ?11:15 [facility]Un[facility]MR [facility] WO [id number] 16:43:24EXAM: MR LUMBAR SPINE WO CONTRAST HISTORY: 67 years-old Female; Provided indication: Stenosis lumber spine/Spondyloarthropathy lumber spine/bilateral low back pain withbilateral sciatica/lumber [...] foraminal narrowing and mild spinal canal stenosis. L2-L3: Diffuse disc bulge with moderate facet arthrosis [...] unremarkable. Right cortical renal cystmeasuring 1.3 cm noted.[facility] CenterIntravitreal Injection, Pharmacologic Agent - OS - Left [id number] 16:59:12Table formatting from the original result was not included.Time Out07/09/2023. 10:58 AM. Confirmed correct patient, procedure, site, and patient consented. AnesthesiaTopical anesthesia was used. Anesthetic medications included Lidocaine 3.5% gel, Proparacaine 0.5%. ProcedurePreparation included 5% betadine to ocular surface. A 32 gauge needle was used. Injection:1.25 mg bevacizumab 1.25 mg/0.05 mL ?Route: Intravitreal, Site: Left Eye ?[facility]: [address]-1, Lot: [id number], Expiration date: 10/08/19 24 Post-opPost injection exam found visual acuity of [...] 5% ? Anesthesia: Akten 3.5% Keke Chery ?07/09/2023 ?10:25 AMUnNexus [facility] Hospital HoustonIntravitreal Injection, Pharmacologic Agent - OS - Left [id number] 21:33:21Table formatting from the original result was not included.Time Out06/04/2023. 3:33 PM. Confirmed correct patient, procedure, site, and patient consented. AnesthesiaTopical anesthesia was used. Anesthetic medications included Lidocaine 3.5% gel, Proparacaine 0.5%. ProcedurePreparation included 5% betadine to ocular surface. A 32 gauge needle was used. Injection:1.25 mg bevacizumab 1.25 mg/0.05 mL ?Route: Intravitreal, Site: Left Eye ?[facility]: [address]-5, Lot: [id number], Expiration date: Post-opPost injection exam found visual acuity of [...] Anesthesia: Akten 3.5% Keke Chery ?06/04/2023 ?3:24 [facility]EM[facility] A1C [id number] 19:56:00* Test Item Value Reference Range Interpretation Comme [facility] POCT HBA1C (test code = 4548-4) 7.6 % 4-6 A Lab Interpretation (test cod e = 00258-6) Abnormal [facility] HEMOGLOBIN A1C [id number] 19:56:00* Test Item Value Reference Range Interpretation Comme [facility] POCT HBA1C (test code = 4548-4) 7.6 % 4-6 A Lab Interpretation (test cod e = 02289-9) Abnormal [facility] GLUCOSE (AUTOMATED)2022-04-11 18:07:11* Test Item Value Reference Range Interpretation Comme [facility] POCT GLU (test code = 6625544510) 246 mg/dL 70-110 H Lab Interpretation (test cod e = 01047-8) Abnormal [facility] GLUCOSE (AUTOMATED)2022-04-11 18:07:11* Test Item Value Reference Range Interpretation Comme [facility] POCT GLU (test code = 7111796786) 246 mg/dL 70-110 H Lab Interpretation (test cod e = 73188-6) Abnormal [facility] CenterProthrombin Time / [id number] 17:57:26* Test Item Value Reference Range Interpretation Comme [facility] PROTIME PATIENT (test code = 5964-2) See_Comment [Automated BlogBus] The system which generated this result transmitted reference range: 10.1 - 12.6 Seconds. The reference range was not used to interpret this result as normal/abnormal. INR (test code = 6301-6) Normal INR <1.1; Warfarin Therapeutic range 2.0 to 3.0 or 2.5 to 3.5, depending upon the indications. Lab Interpretation (test code = 83251-6) Normal [facility] CenterProthrombin Time / [id number] 17:57:26* Test Item Value Reference Range Interpretation Comme [facility] PROTUTE PATIENT (test code = 5964-2) See_Comment [Automated BlogBus] The system which generated this result transmitted reference range: 10.1 - 12.6 Seconds. The reference range was not used to interpret this result as normal/abnormal. INR (test code = 6301-6) Normal INR <1.1; Warfarin Therapeutic range 2.0 to 3.0 or 2.5 to 3.5, depending upon the indications. Lab Interpretation (test code = 52244-4) Normal [facility] HEMOGLOBIN A1C [id number] 20:26:00* Test Item Value Reference Range Interpretation Comme [facility] POCT HBA1C (test code = 4548-4) 7.4 % 4-6 A Lab Interpretation (test cod e = 22513-0) Abnormal [facility] HEMOGLOBIN A1C [id number] 20:26:00* Test Item Value Reference Range Interpretation Comme [facility] POCT HBA1C (test code = 4548-4) 7.4 % 4-6 A Lab Interpretation (test cod e = 72948-2) Abnormal [facility] COR BR BX/EA [id number] 23:54:00 Addendum Begins A. BREAST, LEFT, 3 O'CLOCK 9 CM FROM NIPPLE, BIOPSY:- BENIGN BREAST TISSUE WITH FIBROCYSTIC CHANGES (FIBROADENOMATOUS HYPERPLASIA,USUAL DUCTAL HYPERPLASIA AND STROMAL FIBROSIS)- MICROCALCIFICATIONS IDENTIFIED ASSOCIATED WITH BENIGN DUCTAL STRUCTURES- NO ATYPICAL DUCTAL HYPERPLASIA, IN- SITU CARCINOMA OR INVASIVE CARCINOMA IDENTIFIED B. BREAST, LEFT, 2 O'CLOCK 6 CM FROM NIPPLE, BIOPSY:- BENIGN BREAST TISSUE WITH DUCT ECTASIA AND DENSE STROMAL FIBROSIS- NO ATYPICAL DUCTAL HYPERPLASIA, IN-SITU CARCINOMA OR INVASIVE CARCINOMA IDENTIFIED ? Recommendation:Concordant findings.Return for annual screening mammography in 1 year.Reviewed by the breast imaging panel.The patient wasnotified of these results by Patient Navigator Eugenie Mcmullen via telephone on 06/25/15. Addendum EndsHistory: ?Patient presents with ADC films recommending left breast biopsy of suspicious calcifications. ?Repeat ultrasound (performed today), shows an additional area of concern in the left breast.Site 1- Suspicious calcifications in the left breast, posterior depth, at 3 o'clock, 9 cm from the nipple.Site 2. Complicated cyst/hypoechoic mass in the left breast, middle depth, at 2 o'clock, 6 cm from the nipple.The procedure was explained to the patient including benefits and alternatives. The risks, including but not limited to infection and bleeding, were reviewed and the patient agreed to undergo the procedure, signing the consent form. Site 1 - Left stereotactic core biopsy: The patient's left breast was positioned and images of the calcifications at 3 o'clock posteriorly at a distanceof 9 cm from the nipple were obtained. The breast was prepped for the procedure, the area was anesth etized with a local anesthetic and a small incision was made in the breast. Using a 9G EVIVA BIOPSYDEVICE, one pass was made through the area and seven specimens were obtained. A BAR SHAPED (T SHAPED) micromarker was placed at the site of the core biopsy; this was shown to be 17 mm medial and posterior to the biopsy site per the air pocket seen on the post biopsy LCC image. ?Calcifications were seen in some of the core samples. The patient experienced no complications during the procedure. Site 2 - Left ultrasound guided core biopsy:The patient's left breast was imaged and images of the complicated cyst/hypoechoic mass at 2 o'clock at a distance of 6 cm from the nipple were obtained. The breast was prepped for the procedure, the area was anesthetized with a local anesthetic and a small incision was made in the breast. Using a 14GBARD, four passes were made through the area and four specimens were obtained. A WING SHAPED micromarker was placed at the site of the core biopsy and this was shown to be in appropriate position on the post biopsy images. The patient experienced no complications during the procedure. ?Personally interpreted by: BEVERLY JASON MD /Signed/ BEVERLY JASON MD [facility] CenterMYOCARDIAL STRESS [id number] 23:19:00 *.*.*.*.*.*.*.*.*.*.*.*.*.*FINAL*.*.*.*.*.*.*.*.*.*.*.*.*.*.*Pharmacological stress myocardial perfusion imaging report Type: Technetium 99 labeled tetrofosmin rest/stress single isotope SPECTimagingwith Ragadenoson pharmacological stress and gated SPECT imaging. Indication: Chest Pain Clinical history: s/sx: sinus tachy Procedure: Pharmacological stress test was performed with a bolus dose of 0.4 mg ofRagadenoson. The heart rate was at baseline 79 and at stress 115. Theblood pressure was 163/77 at rest and ?178/99 at stress. Resting EKGrevealed NSR with no ST-T changes, ?stress EKG showed no new ST-T changes.Gated myocardial perfusion imaging was performed at rest following theinjection of 25 millicuries of technetium labeled tetrofosmin and poststress following the injection of 25 millicuries of technetium labeledtetrofosmin. Findings: The overall quality of the study was adequate ?with subphrenic hot gutactivity. SPECT images demonstrate homogeneous tracer distribution throughout themyocardium after looking at attenuation corrected images at both stressand rest. Gated SPECT images demonstrate normal wall motion and myocardialthickening. Rest Values: ?EDV = 50 mL; ESV = 13 mL; EF = 74%.Stress Values: ?EDV = 54 mL; ESV = 19 mL; EF = 65%. [facility] ?Personally interpreted by: BRAYAN RAMIRES MD /Signed/ BRAYAN RAMIRES MD [facility] CenterNUCLEAR MEDICINE [id number] 23:19:00 *.*.*.*.*.*.*.*.*.*.*.*.*.*FINAL*.*.*.*.*.*.*.*.*.*.*.*.*.*.*Pharmacological stress myocardial perfusion imaging report Type: Technetium 99 labeled tetrofosmin rest/stress single isotope SPECTimagingwith Ragadenoson pharmacological stress and gated SPECT imaging. Indication: Chest Pain Clinical history: s/sx: sinus tachy Procedure: Pharmacological stress test was performed with a bolus dose of 0.4 mg ofRagadenoson. The heart rate was at baseline 79 and at stress 115. Theblood pressure was 163/77 at rest and ?178/99 at stress. Resting EKGrevealed NSR with no ST-T changes, ?stress EKG showed no new ST-T changes.Gated myocardial perfusion imaging was performed at rest following theinjection of 25 millicuries of technetium labeled tetrofosmin and poststress following the injection of 25 millicuries of technetium labeledtetrofosmin. Findings: The overall quality of the study was adequate ?with subphrenic hot gutactivity. SPECT images demonstrate homogeneous tracer distribution throughout themyocardium after looking at attenuation corrected images at both stressand rest. Gated SPECT images demonstrate normal wall motion and myocardialthickening. Rest Values: ?EDV = 50 mL; ESV = 13 mL; EF = 74%.Stress Values: ?EDV = 54 mL; ESV = 19 mL; EF = 65%. [facility] ?Personally interpreted by: BRAYAN RAMIRES MD /Signed/ BRAYAN RAMIRES MD [facility] MEDICINE [id number] 23:19:00 *.*.*.*.*.*.*.*.*.*.*.*.*.*FINAL*.*.*.*.*.*.*.*.*.*.*.*.*.*.*Pharmacological stress myocardial perfusion imaging report Type: Technetium 99 labeled tetrofosmin rest/stress single isotope SPECTimagingwith Ragadenoson pharmacological stress and gated SPECT imaging. Indication: Chest Pain Clinical history: s/sx: sinus tachy Procedure: Pharmacological stress test was performed with a bolus dose of 0.4 mg ofRagadenoson. The heart rate was at baseline 79 and at stress 115. Theblood pressure was 163/77 at rest and ?178/99 at stress. Resting EKGrevealed NSR with no ST-T changes, ?stress EKG showed no new ST-T changes.Gated myocardial perfusion imaging was performed at rest following theinjection of 25 millicuries of technetium labeled tetrofosmin and poststress following the injection of 25 millicuries of technetium labeledtetrofosmin. Findings: The overall quality of the study was adequate ?with subphrenic hot gutactivity. SPECT images demonstrate homogeneous tracer distribution throughout themyocardium after looking at attenuation corrected images at both stressand rest. Gated SPECT images demonstrate normal wall motion and myocardialthickening. Rest Values: ?EDV = 50 mL; ESV = 13 mL; EF = 74%.Stress Values: ?EDV = 54 mL; ESV = 19 mL; EF = 65%. [facility] ?Personally interpreted by: BRAYAN RAMIRES MD /Signed/ BRAYAN RAMIRES MD [facility] acute hospital CERVICAL, SPINAL CANAL WITHOUT CONTRAST 2011-07-09 22:30:00MRI CERVICAL, SPINAL CANAL*.*.*.*.*.*.*.*.*.*.*.*.*.*FINAL*.*.*.*.*.*.*.*.*.*.*.*.*.*.*MRI OF THE CE RVICAL SPINE WITHOUT CONTRAST. HISTORY: 55 year old woman with neck pain. TECHNIQUE: 1.5 Jillian MRI without contrast. COMPARISON: ?MRI of the cervical spine 10/18/2009 FINDINGS: The alignement shows straightening. The vertebral bodies have normal height and signal intensity. The spinal cord have normal signal intensity. The C1-C2 relation and cranio-cervical junction are preserved. At C2-C3, no spinal canal stenosis or neural foraminal narrowing is present. At C3-C4, a small disc osteophyte complex causes mild left neural foraminal narrowing, without significant spinal canal stenosis. At C4-C5,a small disc osteophyte complex and facet arthrosis causes mild bilateral neural foraminal narrowing, without significant spinal canal stenosis. At C5-C6, a disc osteophyte complex and facet arthrosis cause moderate spinal canal stenosis and mild bilateral neural foraminal narrowing. At C6-C7, a disc osteophyte complex and facet arthrosis cause [id number] spinal canal stenosis without signif icant neural foraminal narrowing. At C7-T1, no spinal canal stenosis or neural foraminal narrowing is present. The palatine tonsils are symmetrically prominent without increased STIR signal, similar to the previous exam. IMPRESSION:Moderate spinal canal stenosis at C5-6 and mild to moderate at C6-7secondary to spondylosis. Mid cervical mild spondyloarthrosis wihtout significant severe neural foraminal narrowing. No major change since the previous MRI of the cervical spine.[facility]X 2011-05-08 22:14:00[facility] GENERATION COMPLEX*.*.*.*.*.*.*.*.*.*.*.*.*.*FINAL*.*.*.*.*.*.*.*.*.*.*.*.*.*.*INDICATION: ?Gastroesophageal reflux, diabetes and nausea. SOLID GASTRIC EMPTYING, LOW FAT MEAL: Following the administration of 1 mCi 99 mTc sulfur colloid in a low fat "Eggbeater" meal, serial scintiphotos were obtained of the stomach over four hours. ?Percent retention at 1h was 63%, at 2h was 34%, and at 4h was 0%. - - - - - - - - - - - - - - - - - - - - - - - - - - - - - - - - - - - - - - - - - - - - - - - - - - - - - - - - - - - - - NORMAL VALUES (Brad et al, AJG [id number])Time ? Percent [id number] ? <902h ? <604h ? <10- - - - - - - - - - - - - - - - - - - - - - - - - - - - - - - - - - - - - - - - - - - - - -- - - - - - - - - - - - - - - IMPRESSION: Normal study. [facility] Hospital[facility]TY[facility] [id number] 22:14:00 GASTRIC EMPTYING STUDY*.*.*.*.*.*.*.*.*.*.*.*.*.*FINAL*.*.*.*.*.*.*.*.*.*.*.*.*.*.*INDICATION: ?Gastroesophageal reflux, diabetes and nausea. SOLID GASTRIC EMPTYING, LOW FAT MEAL: Following the administration of 1 mCi 99 mTc sulfur colloid in a low fat "Eggbeater" meal, serial scintiphotos were obtained of the stomach over four hours. ?Percent retention at 1h was 63%, at 2h was 34%, and at 4h was0%. - - - - - - - - - - - - - - - - - - - - - - - - - - - - - - - - - - - - - - - - - - - - - - - -- - - - - - - - - - - - - NORMAL VALUES (Brad et al, AJG [id number])Time ? Percent [id number] ? <902h ? <604h ? <10- - - - - - - - - - - - - - - - - - - - - - - - - - - - - - - - - - - - - - - - - - - - - - - - - - - - - - - - - - - - - IMPRESSION: Normal study. [facility] [id number] 22:14:00GASTRIC EMPTYING MEAL*.*.*.*.*.*.*.*.*.*.*.*.*.*FINAL*.*.*.*.*.*.*.*.*.*.*.*.*.*.*INDICATION: ?Gastroesophageal reflux, diabetes and nausea. SOLID GASTRIC EMPTYING, LOW FAT MEAL: Following the administration of 1 mCi 99 mTc sulfur colloid in a low fat "Eggbeater" meal, serial scintiphotos were obtained of the stomach over four hours. ?Percent retention at 1h was 63%, at 2h was 34%, and at 4h was 0%. - - - - - - - - - - - - - - - - - - - - - - - - - - - - - - - - - - - - - - - - - - - - - - - - - - - - - - - - - - - - - NORMAL VALUES (Brad et al, AJG [id number])Time ? Percent [id number] ? <902h ? <604h ?<10- - - - - - - - - - - - - - - - - - - - - - - - - - - - - - - - - - - - - - - - - - - - - - -- - - - - - - - - - - - - - IMPRESSION: Normal study. [facility] HospitalMYOCARDIAL STRESS [id number] 22:53:00MYOCARDIAL STRESS IMAGING*.*.*.*.*.*.*.*.*.*.*.*.*.*FINAL*.*.*.*.*.*.*.*.*.*.*.*.*.*.*INDICATION: Chest pain. 1 DAY MYOCARDIAL PERFUSION IMAGING - SESTAMIBI/ADENOSINE: RESTING: ?The patient received an intravenous injection of 10 mCi Tc-99m sestamibi and SPECT imaging followed. STRESS: ?Lexiscan 0.4 mg total dose was given by IV infusion pump over 10 seconds. Immediately following the infusion, ?30 mCi Tc- 99m sestamibi was injected intravenously. ?Gated SPECT followed. ? The baseline HR was 90 bpm, the maximal HR was 135 bpm in response to the pharmaceutical. ?The baseline BP was 152/70 mm Hgand maximal BP 184/73 mm Hg in response to the pharmaceutical. ? ? RESULTS: ?Normal relative perfusion pattern is seen to the heart. POST STRESS: ?The left ventricular ejection fraction is 75 %. ?Theend- diastolic volume = 41 ml. ?The end-systolic volume = 10 ml. ? REST: ?The left ventricular ejection fraction is 82%. ?The end-dastolic volume = 51ml. ?The end systolic volume = 9ml. Wall motion analysis shows normal wall motion. IMPRESSION: No significant perfusion defects are seen. Normal wall motion is observed. [facility] HospitalDATA GENERATION [id number] 22:53:00DATA GENERATION COMPLEX*.*.*.*.*.*.*.*.*.*.*.*.*.*FINAL*.*.*.*.*.*.*.*.*.*.*.*.*.*.*INDICATION: Chest pain. 1 DAY MYOCARDIAL PERFUSION IMAGING - SESTAMIBI/ADENOSINE: RESTING: ?The patient received anintravenous injection of 10 mCi Tc-99m sestamibi and SPECT imaging followed. STRESS: ?Lexiscan 0.4 mg total dose was given by IV infusion pump over 10 seconds. Immediately following the infusion, ?30mCi Tc-99m sestamibi was injected intravenously. ?Gated SPECT followed. ? The baseline HR was 90 bpm, the maximal HR was 135 bpm in response to the pharmaceutical. ?The baseline BP was 152/70 mm Hg and maximal BP 184/73 mm Hg in response to the pharmaceutical. ? ? RESULTS: ?Normal relative perfusion pattern is seen to the heart. POST STRESS: ?The left ventricular ejection fraction is 75 %. ?The end- diastolic volume = 41 ml. ?The end-systolic volume = 10 ml. ? REST: ?The left ventricular ejection fraction is 82%. ?The end-dastolic volume = 51ml. ?The end systolic volume = 9ml. Wall motion analysis shows normal wall motion. IMPRESSION: No significant perfusion defects are seen. Normal wall motion is observed. [facility] HospitalMYOCARDIAL [id number] 22:53:00MYOCARDIAL EXERCISE*.*.*.*.*.*.*.*.*.*.*.*.*.*FINAL*.*.*.*.*.*.*.*.*.*.*.*.*.*.*INDICATION: Chest pain. 1 DAY MYOCARDIAL PERFUSION IMAGING - SESTAMIBI/ADENOSINE: RESTING: ?The patient received an intravenous injection of 10 mCi Tc-99m sestamibi and SPECT imaging followed. STRESS: ?Lexiscan 0.4 mg total dose was given by IV infusion pump over 10 seconds. Immediately following the infusion, ?30 mCiTc-99m sestamibi was injected intravenously. ?Gated SPECT followed. ? The baseline HR was 90 bpm, the maximal HR was 135 bpm in response to the pharmaceutical. ?The baseline BP was 152/70 mm Hg and maximal BP 184/73 mm Hg in response to the pharmaceutical. ? ? RESULTS: ?Normal relative perfusion pattern is seen to the heart. POST STRESS: ?The left ventricular ejection fraction is 75 %. ?The end-di astolic volume = 41 ml. ?The end-systolic volume = 10 ml. ? REST: ?The left ventricular ejection fraction is 82%. ?The end-dastolic volume = 51ml. ?The end systolic volume = 9ml. Wall motion analysisshows normal wall motion. IMPRESSION: No significant perfusion defects are seen. Normal wall motionis observed. [facility] [id number] 22:53:00 NUCLEAR MEDICINE INJECTION*.*.*.*.*.*.*.*.*.*.*.*.*.*FINAL*.*.*.*.*.*.*.*.*.*.*.*.*.*.*INDICATION : Chest pain. 1 DAY MYOCARDIAL PERFUSION IMAGING - SESTAMIBI/ADENOSINE: RESTING: ?The patient receivedan intravenous injection of 10 mCi Tc-99m sestamibi and SPECT imaging followed. STRESS: ?Lexiscan 0.4 mg total dose was given by IV infusion pump over 10 seconds. Immediately following the infusion, ?30 mCi Tc- 99m sestamibi was injected intravenously. ?Gated SPECT followed. ? The baseline HR was 90bpm, the maximal HR was 135 bpm in response to the pharmaceutical. ?The baseline BP was 152/70 mm Hg and maximal BP 184/73 mm Hg in response to the pharmaceutical. ? ? RESULTS: ?Normal relative perfusion pattern is seen to the heart. POST STRESS: ?The left ventricular ejection fraction is 75 %. ?The end- diastolic volume = 41 ml. ?The end-systolic volume = 10 ml. ? REST: ?The left ventricular ejection fraction is 82%. ?The end-dastolic volume = 51ml. ?The end systolic volume = 9ml. Wall motion analysis shows normal wall motion. IMPRESSION: No significant perfusion defects are seen. Normal wallmotion is observed. [facility] INJE[facility] 2011-03-20 22:53:00NUCLEAR MEDICINE INJECTION*.*.*.*.*.*.*.*.*.*.*.*.*.*FINAL*.*.*.*.*.*.*.*.*.*.*.*.*.*.*INDICATION : Chest pain. 1 DAY MYOCARDIAL PERFUSION IMAGING - SESTAMIBI/ADENOSINE: RESTING: ?The patient receivedan intravenous injection of 10 mCi Tc-99m sestamibi and SPECT imaging followed. STRESS: ?Lexiscan 0.4 mg total dose was given by IV infusion pump over 10 seconds. Immediately following the infusion, ?30 mCi Tc- 99m sestamibi was injected intravenously. ?Gated SPECT followed. ? The baseline HR was 90bpm, the maximal HR was 135 bpm in response to the pharmaceutical. ?The baseline BP was 152/70 mm Hg and maximal BP 184/73 mm Hg in response to the pharmaceutical. ? ? RESULTS: ?Normal relative perfusion pattern is seen to the heart. POST STRESS: ?The left ventricular ejection fraction is 75 %. ?The end- diastolic volume = 41 ml. ?The end-systolic volume = 10 ml. ? REST: ?The left ventricular ejection fraction is 82%. ?The end-dastolic volume = 51ml. ?The end systolic volume = 9ml. Wall motion analysis shows normal wall motion. IMPRESSION: No significant perfusion defects are seen. Normal wallmotion is observed. [facility] HospitalMYOC[facility]IAL RESTING IMAGE 2011-03-20 22:53:00MYOCARDIAL RESTING IMAGE*.*.*.*.*.*.*.*.*.*.*.*.*.*FINAL*.*.*.*.*.*.*.*.*.*.*.*.*.*.*INDICATION: Chest pain. 1 DAY MYOCARDIAL PERFUSION IMAGING - SESTAMIBI/ADENOSINE: RESTING: ?The patient received an intravenous injection of 10 mCi Tc-99m sestamibi and SPECT imaging followed. STRESS: ?Lexiscan 0.4mg total dose was given by IV infusion pump over 10 seconds. Immediately following the infusion, ?30 mCi Tc- 99m sestamibi was injected intravenously. ?Gated SPECT followed. ? The baseline HR was 90 bpm, the maximal HR was 135 bpm in response to the pharmaceutical. ?The baseline BP was 152/70 mm Hg and maximal BP 184/73 mm Hg in response to the pharmaceutical. ? ? RESULTS: ?Normal relative perfusion pattern is seen to the heart. POST STRESS: ?The left ventricular ejection fraction is 75 %. ?The end- diastolic volume = 41 ml. ?The end-systolic volume = 10 ml. ? REST: ?The left ventricular ejection fraction is 82%. ?The end-dastolic volume = 51ml. ?The end systolic volume = 9ml. Wall motion analysis shows normal wall motion. IMPRESSION: No significant perfusion defects are seen. Normal wall motion is observed. [facility] 2011-03-20 22:53:00NUCLEAR MEDICINE INJECTION*.*.*.*.*.*.*.*.*.*.*.*.*.*FINAL*.*.*.*.*.*.*.*.*.*.*.*.*.*.*INDICATION : Chest pain. 1 DAY MYOCARDIAL PERFUSION IMAGING - SESTAMIBI/ADENOSINE: RESTING: ?The patient receivedan intravenous injection of 10 mCi Tc-99m sestamibi and SPECT imaging followed. STRESS: ?Lexiscan 0.4 mg total dose was given by IV infusion pump over 10 seconds. Immediately following the infusion, ?30 mCi Tc- 99m sestamibi was injected intravenously. ?Gated SPECT followed. ? The baseline HR was 90bpm, the maximal HR was 135 bpm in response to the pharmaceutical. ?The baseline BP was 152/70 mm Hg and maximal BP 184/73 mm Hg in response to the pharmaceutical. ? ? RESULTS: ?Normal relative perfusion pattern is seen to the heart. POST STRESS: ?The left ventricular ejection fraction is 75 %. ?The end- diastolic volume = 41 ml. ?The end-systolic volume = 10 ml. ? REST: ?The left ventricular ejection fraction is 82%. ?The end-dastolic volume = 51ml. ?The end systolic volume = 9ml. Wall motion analysis shows normal wall motion. IMPRESSION: No significant perfusion defects are seen. Normal wallmotion is observed. [facility] Notes Date/Time Note Provider Source 2024-12-09 10:45:21 Contacted patient, verified name and . Informed patient that results have not been viewed yet by provider. Informed patient that we could route information to have another provider view, patient stated she would rather wait and have view results. Informed patient that he would not be back in office until 12/27/24. Patient verbalized understanding. Suad Gonzalez RN [facility] 2024-12-09 10:23:01 Patient said she had some recent labs and want to discuss. She concerned with the results. Offered her sooner appt but another provider declined schedules with Dr Momin next avail slot. Susan Montero [facility] 2024-12-07 13:53:16 Contacted patient, verified name and . Informed patient that provider hasn't viewed results yet but once results have been viewed someone will reach out in regards to the results. Patient verbalized understanding. Suad Gonzalez RN [facility] 2024-12-07 13:30:49 Liss Rivera is a 69 year old female would like a call back to discuss her lab results Please advise [phone] (home) Jose Armando Chavez [facility] 2024-12-06 10:00:00 Images from the original note were not included. Per pt - only doing labs for [place]. Venipuncture collection performed by clean technique on the left anticubitus. Total of 1 attempts were made. Slight pressure and a bandage/dressing were applied to the site(s). The patient experienced no complications. The following specimens were processed according to instructions and sent to [email or web address] laboratories per lab order on 12/06/2024: LT BLUE SST 2 RED LAV 2 PPT DK GREEN (LiHep) DK GREEN (SodH) VELOZ DK BLUE (K2) DK BLUE (S) ACD Blood Culture NIPT/NTD [facility] 2024-11-30 14:37:43 Images from the original note were not included. Routed to provider for review. Unable to refill per ambulatory refill guidelines. Notes: Requested Renewals methocarbamoL 500 mg tablet Sig: Take 1 tablet by mouth 4 times daily. Disp: 120 tablet Refills: 5 Start: 11/30/2024 Class: eRX For: Chronic pain syndrome; Chronic midline low back pain with bilateral sciatica; Lumbar radiculopathy; Multilevel degenerative disc disease; Spondyloarthropathy of lumbar spine; Arthritis, multiple joint involvement; Spinal stenosis of lumbar region without neurogenic claudication; Spondylosis without myelopathy or radiculopathy, cervical region; Anterolisthesis of lumbosacral spine Last ordered: 6 months ago (05/11/2024) by Rajni Momin MD Provider Review Required - Methocarbamol Vgzens7311/30/2024 11:30 AM Protocol Details This refill cannot be delegated Manual Review: Methocarbamol for ortho staff to refill only Valid encounter within last 12 months To be filled at: [facility] [phone] Last Refilled: 11/2024 Recent Visits Date Type Provider Dept 08/17/24 Office Visit Rajni Momin MD [facility] 05/11/24 Office Visit Rajni Momin MD [facility] 12/30/23 Office Visit Rajni Momin MD [facility] 11/06/23 Office Visit Rajni Momin MD [facility] 11/06/23 Office Visit Rajni Momin MD [facility] 07/29/23 Office Visit Rajni Momin MD [facility] Showing recent visits within past 540 days with a meds authorizing provider and meeting all other requirements Future Appointments Date Type Provider Dept 12/21/[address] [facility] 12/21/24 Appoint[address] [facility] Showing future appointments within next 150 days with a meds authorizing provider and meeting all other requirements Sarita Sneed MA [facility] 2024-11-28 11:48:38 Images from the original note were not included. Notes: Name from pharmacy: busPIRone HCl 15 MG Oral Tablet Will file in chart as: BUSPIRONE 15 mg tablet Sig: Take 1 tablet by mouth every morning and evening. Original sig: TAKE 1 TABLET BY MOUTH EVERY MORNING AND EVENING Disp: 180 tablet Refills: 0 Start: 11/26/2024 Class: eRX Non-formulary For: Anxiety Last ordered: 3 months ago (08/17/2024) by Rajni Momin MD Last refill: 03/04/2024 Rx #: [id number] Provider Review Required Fszkbv2911/26/2024 10:49 AM Protocol Details This refill cannot be delegated Valid encounter within last 12 months To be filled at: [address] Last Refilled: 08/17/24 Recent Visits Date Type Provider Dept 08/17/24 Office Visit Rajni Momin MD [facility] 05/11/24 Office Visit Rajni Momin MD [facility] 12/30/23 Office Visit Rajni Momin MD [facility] 11/06/23 Office Visit Rajni Momin MD [facility] 11/06/23 Office Visit Rajni Momin MD [facility] 07/29/23 Office Visit Rajni Momin MD [facility] Showing recent visits within past 540 days with a meds authorizing provider and meeting all other requirements Future Appointments Date Type Provider Dept 12/21/[address] [facility] 12/21/[address] [facility] Showing future appointments within next 150 days with a meds authorizing provider and meeting all other requirements Sarita Sneed MA [facility] 2024-11-14 09:23:02 Images from the original note were not included. Requested Renewals Name from pharmacy: Meclizine HCl 25 MG Oral Tablet Will file in chart as: MECLIZINE 25 mg tablet Sig: TAKE 1 TABLET BY MOUTH THREE TIMES DAILY NEEDED FOR DIZZINESS Disp: 90 tablet Refills: 0 Start: 11/12/2024 Class: eRX For: Benign paroxysmal positional vertigo due to bilateral vestibular disorder Last ordered: 1 month ago (10/05/2024) by Rajni Momin MD Last refill: 10/10/2024 Rx #: [id number] Anti-nausea Nfflpu1511/12/2024 05:58 AM Protocol Details This refill cannot be delegated Manual Review: [facility] providers only allowed to refill requests. Valid encounter within last 12 months To be filled at: [facility] [address] [place] [address] 08-17-2024 12-21-2024 [facility] 2024-11-03 16:02:23 Lvm letting pt know work excuse was sent. DORETHA LOZADA 11/03/2024 4:02 PM Doretha Lozada [facility] 2024-11-03 12:01:16 Liss Rivera is a 69 year old female Patient is asking for a work excuse for her son that had taken her to the appt for today. She would like for it to be emailed to her at [email or web address] Son name is Yared Rivera Laverne Ceja [facility] 2024-10-05 08:51:49 Images from the original note were not included. Requested Renewals Name from pharmacy: Meclizine HCl 25 MG Oral Tablet Will file in chart as: MECLIZINE 25 mg tablet Sig: TAKE 1 TABLET BY MOUTH THREE TIMES DAILY NEEDED FOR DIZZINESS Disp: 90 tablet Refills: 0 Start: 10/04/2024 Class: eRX For: Benign paroxysmal positional vertigo due to bilateral vestibular disorder Last ordered: 1 month ago (08/17/2024) by Rajni Momin MD Last refill: 09/15/2024 Rx #: [id number] Anti-nausea Xoebdw1710/04/2024 05:52 PM Protocol Details This refill cannot be delegated Manual Review: Women's Health providers only allowed to refill requests. Valid encounter within last 12 months To be filled at: [facility] [address] [place] [address] 08-17-2024 12-03-2024 T [facility] 2024-10-03 08:22:04 SASKIA 04/22/24 NOV 11/18/24 Refill sent Derrick Rodríguez RN [facility] 2024-08-12 09:45:00 Images from the original note were not included. Venipuncture collection performed by clean technique on the left anticubitus. Total of 1 attempts were made. Slight pressure and a bandage/dressing were applied to the site(s). The patient experienced no complications. The following specimens were processed according to instructions and sent to [email or web address] laboratories per standing lab order : LT BLUE SST 2 RED LAV 2 PPT DK GREEN (LiHep) DK GREEN (SodH) VELOZ DK BLUE (K2) DK BLUE (S) ACD Blood Culture NIPT/NTD T [facility] 2024-08-05 08:37:16 Call placed to pt, informed need for labs and orders have been placed. Pt aware labs will need to be fasting. Pt denies further questions or concerns at this time. Alison Samano RN [facility] 2024-08-04 17:25:37 Please advise patient to repeat labs q3 month. Thank you. [facility] 2024-08-04 09:22:32 Routing to provider for clarification, pt has standing orders, no notes indicate if pt has labs completed Q 3 or 6 months. [facility] 2024-08-03 16:37:59 Liss Rivera is a 68 year old female Pt would like to know if there are any labs that she will need to have done before her 3 month f/u appt on 08.17.24 Arlene Ely [facility] 2024-06-24 10:46:29 PA has been submitted via [employer]. LACER Alison Samano RN [facility] 2024-06-24 09:50:08 Images from the original note were not included. Matias [facility] 2024-06-13 11:39:45 Message has been sent via [facility]. LACER Alison Samano RN [facility] 2024-06-12 14:23:54 New Medications Atherosclerosis of vertebral artery/Mixed hyperlipidemia/Carotid artery plaque, bilateral - Limit processed meals, unhealthy snacks and increase diet high in omega 3 fatty acids - Continue with exercise as tolerated with lifestyle and diet modification: lean meat, low fat, vegetables, nuts, low carb, and increased fruits - prlpe-5-yyh-vsz-nbh-prne oil 430-130-650 mg CpDR; Take 1 capsule by mouth in the morning. Dispense: 90 capsule; Refill: 1 [facility] 2024-06-09 16:28:35 Call placed to pt to discuss POC. Pt upset stating Dr. Momin should have put dosage amount for [place] 3 that he would like her to take as she read on [employer] can cause bleeding and other stomach issues. Pt was informed provider would like her to increase in [place] 3 rich foods, pt states she does not like fish and wants to take a supplement, does not want to take 1000mg as "I feel like it would be too much". Informed can take lowest dose if she would like 250mg, declines and states "I want it to come from the Doctor". Informed will route message to provider. Pt demanding we respond to her today or tomorrow as she has to return supplements that were purchased. Pt informed will route message to provider, and provider is currently seeing pts. LACER Alison Samano RN [facility] 2024-06-09 15:18:05 Liss Rivera is a 68 year old female would like a call back to discuss results with nurse Balderas [facility] 2024-06-09 14:27:20 - A1c not at goal of 7.0% and below. Currently 7.9% Medication compliance is important, with lifestyle and diet modification: lean meat, low fat, vegetables, nuts, low carb, increased fruits and exercise as tolerated. Maintain good hydration. Avoid highly processed meals. Okay to take spice [generally anti-inflammatory]. Avoid anything/drinks excessively sweetened. [facility] 2024-06-07 15:48:51 Pt is concerned that her AST was slightly elevated. She searched for information in [facility]. She mention some changes that she made in her diet that could affect that. So she is willing to decrease some of those snack she was having. She is diabetic, would like to know if she can take Turmeric and Apple cider to help her with the liver enzymes. Can her labs be rechecked in about 6-8 weeks? LACER Sarita Sneed MA [facility] 2024-06-07 13:17:03 Liss Rivera is a 68 year old female would like a call back to discuss lab results today if possible Please advise [phone] (home) LACER Jose Armando Chavez [facility] 2024-06-02 10:58:33 Form signed, faxed and confirmation received. LACER Ena Mary MA [facility] 2024-05-31 08:18:18 Images from the original note were not included. LACER Genna Gray [facility] 2024-05-19 12:50:12 Spoke with emma and clairfied script for lancets [facility] 2024-05-19 11:11:14 Emma with [employer] calling wanting to speak with nurse about Lancets (ACCU-CHEK SOFTCLIX LACER Aziza Balderas [facility] 2024-05-17 15:59:29 Form competed and placed in providers folder for review. LACER Alison Samano RN [facility] 2024-05-17 14:39:02 Received medical necessity form for High utilization that needs to be filled out. Placed in nurses folder for review. Montero [facility] 2024-05-16 10:19:22 Pt is to test TID per Veronica last OV. Form sent back with last OV notes specifying TID BS testing. Best RN [facility] 2024-05-12 09:21:27 Call placed to pt, pt states when she was looking at her visit summary it states "severe high blood pressure", pt reports she would like that removed as she does not have severe high blood pressure and was not discussed her OV. Pt upset as she does not understand why this is on her summary and states "this is dangerous for people's lives". Reviewed pt chart along with AVS and do not see this as a dx on pt chart, dx reviewed with pt, pt also informed note is not completed from yesterday's visit to be able to determine what was discussed. Informed pt I will send her a [facility] message so she can attach screen shot of dx she is seeing. Pt also requesting lab results, informed provider has not yet reviewed but normals reviewed with pt. Pt informed when provider reviews our office will be giving her a call. Pt verbalizes understanding and agrees w/POC. [facility] message has been sent. Samano RN [facility] 2024-05-12 08:29:18 Liss Rivera is a 68 year old female would like to speak with nurse about yesterday's office visit. She has a dispute with her after visit chart notes Please advise [phone] (home) Chavez [facility] 2024-05-11 14:45:00 Images from the original note were not included. Venipuncture collection performed by clean technique on the left anticubitus. Total of 1 attempts were made. Slight pressure and a bandage/dressing were applied to the site(s). The patient experienced no complications. The following specimens were processed according to instructions and sent to [facility] [[email or web address] laboratories per lab order on 05/11/2024: LT BLUE SST 2 RED LAV 2 PPT DK GREEN (LiHep) DK GREEN (SodH) VELOZ DK BLUE (K2) DK BLUE (S) ACD Blood Culture NIPT/NTD [facility] 2024-05-10 09:26:54 Images from the original note were not included. Requested Renewals ergocalciferol, vitamin d2, 1,250 mcg (50,000 unit) capsule Sig: Take 1 capsule by mouth weekly. Disp: 26 capsule Refills: 1 Start: 05/10/2024 Class: eRX For: Vitamin D deficiency Last ordered: 11 months ago (06/01/2023) by Rajni Momin MD Off-Protocol Wgjhmt6005/10/2024 08:48 AM Protocol Details Medication not assigned to a protocol, forward to provider. Valid encounter within last 12 months To be filled at: [facility] [address] [place] [address] 12-30-2023 [facility] 05-11-2024 LACER Ena Mary MA [facility] 2024-04-28 12:08:45 Received Medical Necessity Form from [facility]. Placed in providers box Ortez [facility] 2024-04-15 14:29:16 Images from the original note were not included. [facility] discharge summary report received placed in Dr. Momin folder review. Matias [facility] 2024-04-01 10:07:[address] [facility] (Discharge notice) has been placed in provider folder for review. Mary MA [facility] 2024-04-01 09:22:00 Fax placed in nurses station for review. Pompa [facility] 2024-03-29 10:45:13 Images from the original note were not included. Requested Renewals Name from pharmacy: Lidocaine 5 % External Ointment Will file in chart as: LIDOCAINE 5 % ointment Possible duplicate: Mike to review recent actions on this medication Sig: APPLY 2 GRAMS TO AFFECTED AREAS TWICE A DAY NEEDED Disp: 36 g Refills: 0 Start: 03/29/2024 Class: eRX Non-formulary For: Lumbar radiculopathy; Chronic midline low back pain with bilateral sciatica; Multilevel degenerative disc disease; Spondyloarthropathy of lumbar spine; Spinal stenosis of lumbar region without neurogenic claudication; Chronic pain syndrome; Arthritis, multiple joint involvement; Anterolisthesis of lumbosacral spine Last ordered: 1 month ago (02/26/2024) by Rajni Momin MD Last refill: 02/29/2024 Rx #: [id number] Off-Protocol Lmavzm0803/29/2024 05:56 AM Protocol Details Medication not assigned to a protocol, forward to provider. Valid encounter within last 12 months To be filled at: [facility] [address] [place] [address] 12-30-2023 [facility] 05-11-2024 Mary MA [facility] 2024-03-15 12:57:37 Spoke with patient's home health nurse and patient. Episode (dizziness, lightheadedness) occurred about 1-2 days ago. This is not new for patient. NO SOB, chest pain, palpitations. She states Dr. Guerra has already done some cardiac testing which has come back normal but she wanted to notify Dr. Guerra that it happened again. Of note, Dr. Guerra ordered a heart monitor which was not completed. Patient has transportation issues. nurse will check to see if they would be able to assist patient to pipelines supervisor monitor at home. Patient admits that she hasn't been eating and drinking well and feels this may have contributed to the episode. Encouraged her to drink water throughout the day. Patient states her BP does fluctuate. She usually only takes amlodipine if her pre med BP is 130-140. Home health nurse states BP has been around 110-146/60-80 over the past month. No HR reported. BP today is 110/60 from HH nurse and 122/58 on patient's device. Advised patient to keep a log of her symptoms. She is not able to come to clinic for heart monitor. If nurse able to assist, we can change monitor to a mail out. Patient was encouraged to call back if symptoms start to increase in frequency or worsen. Beal RN [facility] 2024-03-15 12:17:42 Liss Rivera is a 68 year old female Pts home health nurse is calling and is asking to speak with nurse about pt. She states that pt felt like she was going to pass out about 1- 2 days ago and she was also feeling light headed and groggy. BP 150/69 Glucose was 163. Please advise. PH [phone] Villegas [facility] 2024-02-26 09:03:07 Images from the original note were not included. Routed to provider for review. Unable to refill per ambulatory refill guidelines. Notes: Name from pharmacy: Lidocaine 5 % External Ointment Will file in chart as: LIDOCAINE 5 % ointment Sig: APPLY 2 GRAMS TO AFFECTED AREAS TWICE A DAY NEEDED Disp: 36 g Refills: 0 Start: 02/26/2024 Class: eRX Non-formulary For: Lumbar radiculopathy; Chronic midline low back pain with bilateral sciatica; Multilevel degenerative disc disease; Spondyloarthropathy of lumbar spine; Spinal stenosis of lumbar region without neurogenic claudication; Chronic pain syndrome; Arthritis, multiple joint involvement; Anterolisthesis of lumbosacral spine Last ordered: 1 month ago (01/25/2024) by Rajni Momin MD Last refill: 01/26/2024 Rx #: [id number] Off-Protocol Gusxma2502/26/2024 05:56 AM Protocol Details Medication not assigned to a protocol, forward to provider. Valid encounter within last 12 months To be filled at: [facility] [id number] Last Refilled: 01/26/2024 Recent Visits Date Type Provider Dept 12/30/23 Office Visit Rajni Momin MD [facility] 11/06/23 Office Visit Rajni Momin MD [facility] 11/06/23 Office Visit Rajni Momin MD [facility] 07/29/23 Office Visit Rajni Momin MD [facility] 01/13/23 Office Visit Rajni Momin MD [facility] Showing recent visits within past 540 days with a meds authorizing provider and meeting all other requirements Future Appointments Date Type Provider Dept 05/11/[address] [facility] Showing future appointments within next 150 days with a meds authorizing provider and meeting all other requirements Sarita Sneed MA [facility] 2024-02-22 14:39:43 Vitamin D3 PA information, states medication does not require a PA. Alison Samano RN [facility] 2024-02-22 14:35:26 Images from the original note were not included. Genna Gray [facility] 2024-02-22 12:20:05 PA has been submitted for ergocalciferol, vitamin d2, 1,250 mcg (50,000 unit) capsule To Cover My Meds. Alison Samano RN [facility] 2024-02-18 10:08:44 [facility] calling wanting to let clinic know that they will be sending requesting for Prior Auth Qasim Eric [facility] 2024-02-18 09:46:18 Call placed to [facility], who stated medication is ready for picker and vilchis is 4.50, call placed to pt to inform. Pt states will call pharmacy to verify. Alison Samano RN [facility] 2024-02-18 08:35:59 Liss Rivera is a 68 year old female Pt calling in to f/u on PA needed for Vitamin D2 Please assist. [phone] (home) Jennifer Soliz [facility] 2024-02-17 12:49:39 Liss Rivera is a 68 year old female states she needs PRIOR AUTH for ergocalciferol (vitamin D2) 1,250 mcg (50,000 unit) capsule (CALCIFEROL) through her medicare part D @ [phone] Please advise [phone] (home) [facility] [address] [place] [id number] Jose Armando Chavez [facility] 2024-02-17 10:12:34 Images from the original note were not included. Refill request refilled per ambulatory refill guidelines. Notes: Name from pharmacy: DULoxetine HCl 30 MG Oral Capsule Delayed Release Particles Will file in chart as: DULOXETINE 30 mg capsule Sig: TAKE 1 CAPSULE BY MOUTH ONCE DAILY FOR ANXIETY . APPOINTMENT REQUIRED FOR FUTURE REFILLS Disp: 90 capsule Refills: 0 Start: 02/17/2024 Class: eRX For: Lumbar radiculopathy; Chronic midline low back pain with bilateral sciatica; Multilevel degenerative disc disease; Spondyloarthropathy of lumbar spine; Spinal stenosis of lumbar region without neurogenic claudication; Chronic pain syndrome; Arthritis, multiple joint involvement; Anterolisthesis of lumbosacral spine; Anxiety; Depression, major, recurrent, moderate Last ordered: 6 months ago (07/29/2023) by Rajni Momin MD Last refill: 11/24/2023 Rx #: [id number] Neuropathic Pain Rxbgti0902/17/2024 05:56 AM Protocol Details Manual Review: Verify no changes in dose in the last 3 months Valid encounter within last 12 months To be filled at: [facility] [address] [place] [address] Last Refilled: 11/24/2023 Recent Visits Date Type Provider Dept 12/30/23 Office Visit Rajni Momin MD [facility] 11/06/23 Office Visit Rajni Momin MD [facility] 11/06/23 Office Visit Rajni Momin MD [facility] 07/29/23 Office Visit Rajni Momin MD [facility] 01/13/23 Office Visit Rajni Momin MD [facility] 09/03/22 Office Visit Rajni Momin MD [facility] 09/03/22 Office Visit Rajni Momin MD [facility] Showing recent visits within past 540 days with a meds authorizing provider and meeting all other requirements Future Appointments Date Type Provider Dept 05/11/[address] [facility] Showing future appointments within next 150 days with a meds authorizing provider and meeting all other requirements Sarita Sneed MA [facility] 2024-02-16 09:52:58 Summary report received from [facility] scanned in folder and placed in providers basket. Genna Gray [facility] 2024-02-16 09:25:01 Refill has been sent to pharmacy on file. Future Appointments Date Type Provider Dept 04/22/24 Appointment Magnus Martin MD [facility] End[facility] 05/11/[address] [facility] Showing future appointments within next 150 days with a meds authorizing provider and meeting all other requirements Ena Best RN [facility] 2024-01-28 13:55:21 PA has been submitted via [employer] with OV notes. Alison Samano RN [facility] 2024-01-28 12:52:12 Images from the original note were not included. Phylicia Matias [facility] 2024-01-27 11:07:13 Images from the original note were not included. Refill request refilled per ambulatory refill guidelines. Routed to provider for review. Unable to refill per ambulatory refill guidelines. Notes: Name from pharmacy: Famotidine 40 MG Oral Tablet Will file in chart as: FAMOTIDINE 40 mg tablet Sig: TAKE 1 TABLET BY MOUTH ONCE DAILY BEFORE BREAKFAST Disp: 90 tablet Refills: 0 Start: 01/27/2024 Class: eRX For: LPRD (laryngopharyngeal reflux disease) Last ordered: 6 months ago (07/29/2023) by Rajni Momin MD Last refill: 10/31/2023 Rx #: [id number] Gastroenterology: Antiulcer - H2 Antagonists Tbcrqg4001/27/2024 05:55 AM Protocol Details Valid encounter within last 12 months eGFR in normal range and within 360 days Cr in normal range and within 360 days Name from pharmacy: Gabapentin 100 MG Oral Capsule Will file in chart as: GABAPENTIN 100 mg capsule Sig: TAKE 1 CAPSULE BY MOUTH TWICE DAILY NEEDED FOR PAIN (SCALE 7-10) Disp: 180 capsule Refills: 0 Start: 01/27/2024 Class: eRX For: Lumbar radiculopathy; Chronic midline low back pain with bilateral sciatica; Multilevel degenerative disc disease; Spondyloarthropathy of lumbar spine; Spinal stenosis of lumbar region without neurogenic claudication; Chronic pain syndrome; Arthritis, multiple joint involvement; Anterolisthesis of lumbosacral spine Last ordered: 6 months ago (07/29/2023) by Rajni Momin MD Last refill: 10/31/2023 Rx #: [id number] Neuropathic Pain Oblfkf0501/27/2024 05:55 AM Protocol Details Manual Review: Verify no changes in dose in the last 3 months Valid encounter within last 12 months To be filled at: [facility] [address] [place] [address] Last Refilled: 10/31/2023 Recent Visits Date Type Provider Dept 12/30/23 Office Visit Rajni Momin MD [facility] 11/06/23 Office Visit Rajni Momin MD [facility] 11/06/23 Office Visit Rajni Momin MD [facility] 07/29/23 Office Visit Rajni Momin MD [facility] 01/13/23 Office Visit Rajni Momin MD [facility] 09/03/22 Office Visit Rajni Momin MD [facility] Medicine 09/03/22 Office Visit Rajni Momin MD [facility] Showing recent visits within past 540 days with a meds authorizing provider and meeting all other requirements Future Appointments Date Type Provider Dept 05/11/24 Appointment Rajni Momin MD [facility] Showing future appointments within next 150 days with a meds authorizing provider and meeting all other requirements zekiel Sneed MA [facility] 2024-01-25 08:35:05 Images from the original note were not included. Requested Renewals Name from pharmacy: Lidocaine 5 % External Ointment Will file in chart as: LIDOCAINE 5 % ointment Sig: APPLY 2 GRAMS TO AFFECTED AREAS TWICE A DAY NEEDED Disp: 36 g Refills: 0 Start: 01/24/2024 Class: eRX Non-formulary For: Lumbar radiculopathy; Chronic midline low back pain with bilateral sciatica; Multilevel degenerative disc disease; Spondyloarthropathy of lumbar spine; Spinal stenosis of lumbar region without neurogenic claudication; Chronic pain syndrome; Arthritis, multiple joint involvement; Anterolisthesis of lumbosacral spine Last ordered: 6 months ago (07/29/2023) by Rajni Momin MD Last refill: 12/30/2023 Rx #: [id number] Off-Protocol Sgbpxj7001/24/2024 06:55 AM Protocol Details Medication not assigned to a protocol, forward to provider. Valid encounter within last 12 months To be filled at: [address] 12-30-2023 [facility] 05-11-2024 Ena Mary MA [facility] 2024-01-22 12:54:44 All orders completed to-date. Let me know if any other requests. T [facility] 2024-01-22 10:43:01 Spoke with pt and let her know per Dr. Martin, Medicare will only cover the glucometer strips tid. Let pt know that there is also prior documentation by KAVITA Sutherland that she spoke with Medicare rep (Jocelin) who also confirmed Medicare will only cover tid testing. Pt verbalized understanding and requested we send in new Rx for tid testing. Requested Prescriptions Signed Prescriptions Disp Refills blood sugar diagnostic (ACCU-CHEK GUIDE TEST STRIPS) strip 400 Each 1 Sig: USE TO CHECK BLOOD GLUCOSE 3 TIMES DAILY. DX E11.69 Authorizing Provider: MAGNUS MARTIN Ordering User: JENNIFER OLIVAREZ [facility] 2024-01-22 09:32:02 Liss Rivera is a 68 year old female PT calling about test strips, has been calling about them for a couple days, multiple encounters, please advise. Devin Gonzalez [facility] 2024-01-21 14:58:33 Liss Rivera is a 68 year old female Pt is calling to speak with Dr. Martin regarding issue receiving test strips, Pt states, she does not want to speak with a nurse, Pt is out of test strips, Please advise [phone] (home) Jennifer Hyde [facility] 2024-01-21 14:39:55 Liss Rivera is a 68 year old female PT calling in regards to call placed earlier today, demanding call back please advise. [facility] 2024-01-21 08:41:22 Liss Rivera is a 68 year old female Pt is calling wanting to speak with Ena about her Test Strips. Please advise Pt wants to speak to pt today Marita Bonilla [facility] 2024-01-18 15:22:20 Received multiple calls from patient, patient upset medicare is not covering test strips. Spoke to patient medicare rep Jocelin who stated ins wouldn't cover testing ore than 3x a day. Pt not accepting that answer ,states she is going to get rx prescribed one way or another. Reached out to patient academic services professional for help. [facility] 2024-01-18 15:19:43 Being addressed on another encounter. Ena Best RN [facility] 2024-01-18 12:41:45 Pt's insurance account specialist Jocelin is requesting a call back to discuss the denial of pt's testing supplies. Pls contact her at [phone]. Cresencio Mcgill [facility] 2024-01-18 11:23:54 Liss Rivera is a 68 year old female Pt is calling to speak with nurse Sutherland regarding what Medicare told her about the test strips, Pt did not give me anymore information, Please advise (home) Jennifer Hyde [facility] 2024-01-18 10:23:26 Spoke with patient. Addressing on separate encounter. Ena Best RN [facility] 2024-01-18 10:09:57 Liss Rivera is a 68 year old female Pt is needing calling needing to speak with nurse Sutherland today per pt . Please contact pt [phone] (home) Levi Hawkins [facility] 2024-01-18 08:25:15 Images from the original note were not included. PA denied, pt notified. T [facility] 2024-01-17 14:30:13 Being addressed on separate encounter, closing this encounter. Ena Best RN [facility] 2024-01-15 14:05:57 Images from the original note were not included. Spoke to medicare- requesting PA KATELIN sent Spoke with [facility] pharmacy- paperwork has been reviewed, waiting on response from Medicare. Pt is aware, have talked 3x today. Pt understands we may not have an answer right away. [facility] 2024-01-15 12:23:39 Liss Rivera is a 68 year old female Pt is calling to speak to Nurse Sutherland regarding her test strips Please call before the end of the day. Please advise Angie Carson [facility] 2024-01-14 08:42:51 Sent to [facility] to try to get approved. [facility] pharmacy unable to get RX approved due to Medicare part B. Spoke with at [facility], she stated that medicare has not updated RX status from awaiting paperwork. No further action available at this time. Spoke with patient about chart notes being accepted, will talk to provider tomorrow about necessity of 4x daily strips. [facility] 2024-01-14 08:38:04 Spoke with patient about medical necessity forms sent in, was approved for testing 4x day, however medicare is denying refills/ coverage. Pt states insurance is supposed to call us and get information. Chart notes and medical necessity forms faxed 01/08/24. During call patient expressed frustration about RX not being approved stating she is a "poor individual" that can't afford RX without insurance approval. Pt states she has talked to pharmacy multiple times,and Medicare yesterday and everyone is saying something different. Pt states that Medicare will be calling to talk to Dr. Martin and only him because, I the nurse am new and do not know what I am talking about. I explained to patient that we have sent in everything Medicare has requested multiple times, twice on 01/07 and once on 01/10. Pt stated that we are just saying things and the pharmacy is just saying things because she is elderly. I explained to the patient that although the pharmacy is saying one thing, and we are saying one thing that we have all sent in everything the insurance has requested and it is ultimately the insurances decision to approve or not to approve RX. Pt stated I was being rude and a smart-ass. Apologized to patient, started that was not my intention. Stated we are all trying to get RX approved, we are trying to help patient get RX. I expressed to patient that since everything has been done on our side, maybe we could send to [facility] pharmacy and see if they could help getting RX approved. Pt verbalized approval of sending to [facility] pharmacy, however stated that if not approved she would be going to [employer] of [facility] [[email or web address]] to report us not helping her and getting RX approved. "Someone up there knows more than you do and will be able to get my prescription filled" Sent to [facility] pharmacy, pharmacy said RX has to go through Medicare part B which is not done at the [facility] pharmacy. Called Medicare- waiting on response. [facility] [[email or web address] 2024-01-13 17:08:15 Liss Rivera is a 68 year old female Pt calling in regards to blood sugar diagnostic (ACCU-CHEK GUIDE TEST STRIPS) strip. Pharmacist is stating the insurance is denying her test strips due to documentation not being submitted correctly. They have already been denied twice and wants to speak with nurse about what exactly is being submitted. Tim Salazar [facility] 2024-01-11 14:35:21 Orders received via [employer], forwarding this message to provider for review. Alison Samano RN [facility] 2024-01-11 14:07:30 Told patient I have spoken to pharmacy and given them all information requested. Pt stated she would talk to pharmacy and verify. No further concerns. [facility] 2024-01-11 13:56:46 Liss Rivera is a 68 year old female calling to find out with medication denied wants a call back from nurse pt is out of strips Aidan Wall [facility] 2024-01-11 10:56:57 Checked [employer], last note received from was 10/2023. Spoke to Aidan who states has 2 active accts on [employer] and she has been sending to Internal Medicine instead of [facility], informed her to send to [facility], once completed I will route to Dr. Momin for review. [facility] 2024-01-11 10:33:08 Liss Rivera is a 68 year old female Aidan from [facility] is calling stating they have had pending home health orders in [employer] for [address] Momin's signature. Aidan stated it shows provider has 2 accounts in [employer] so she is unsure if she sent it to the wrong one. Please contact Aidan at [phone] Tim Velázquez [facility] 2024-01-08 16:09:34 Request filled out, signed by provider, faxed back to 01/08/24 Ena Best RN [facility] 2024-01-07 14:26:50 Summary: Medical Necessity Form for High Utilization Images from the original note were not included. Justyn Guardado [facility] 2024-01-07 14:01:38 Duplicate request, being addressed in separate encounter. Ena Best RN [facility] 2024-01-07 13:59:37 Spoke with Kathleen, awaiting medicare forms to have them filled out by provider. [facility] 2024-01-07 12:07:58 Liss Rivera is a 68 year old female Kathleen from pharmacy calling regarding order request sent over to fax: [phone] twice asking for new orders for rx blood sugar diagnostic (ACCU-CHEK GUIDE TEST STRIPS) strip to be sent over [facility]. Pharmacy call back [phone] [facility] 2024-01-07 12:06:04 Pt states that the pharmacy is requesting authorization to fill blood sugar diagnostic (ACCU-CHEK GUIDE TEST STRIPS) strip. Pt is testing 4 x /day. Pt asking for additional refills. Pls advise. Pt completely out of test strips [facility] [address] [place] [id number] Cresencio Mcgill [facility] 2023-12-30 16:43:15 Images from the original note were not included. Scanned in folder and placed in provider basket for review. Genna Gray [facility] 2023-12-24 15:41:33 Call placed to nurse who [...] Dept 11/06/23 Office Visit Rajni Momin MD [facility] Family Medicine 11/06/23 Office Visit Rajni Momin MD [facility] 07/29/23 Office Visit Rajni Momin MD [facility] Family Medicine 01/13/23 Office Visit Rajni Momin MD [facility] 09/03/22 Office Visit Rajni Momin MD [facility] 09/03/22 Office Visit Rajni Momin MD [facility] Showing recent visits within past 540 days with a meds authorizing provider and meeting all other requirements Future Appointments Date Type Provider Dept 05/11/24 Appointment Rajni Momin MD [facility] Showing future appointments within next 150 days with a meds authorizing provider and meeting all other requirements Alison Samano RN [facility] 2023-12-24 15:09:31 Liss Rivera is a 68 year old female and Cornelia a nurse with [facility] is calling asking if orders can be placed for the pt. Is asking for OT orders for evaluation and treatment. Luz Valentine [facility] 2023-12-10 15:42:42 Call placed to , Reports will send orders via [employer]. Alison Samano RN [facility] 2023-12-10 14:48:22 Liss Rivera is a 68 year old female Elziabeth with [facility] called to advise recert for HH on 12/09/23 and needs auth for the recert Call at [phone] Also reported pt Seen in [facility] ER on 12/07/23 for dizziness, no changes Dominique Crouch [facility] 2023-12-08 13:44:11 Medical records received [facility] placed in Dr. Momin folder for review. Phylicia Matias [facility] 2023-12-07 16:54:56 Images from the original note were not included. [facility] Home Health Notification placed in Dr Momin folder for review. Phylicia Matias [facility] 2023-11-30 10:34:54 Images from the original note [...] Momin MD Last refill: 11/02/2023 Rx #: [id number] Provider Review Required Xgjpiw3111/28/2023 05:56 AM Protocol Details This refill cannot be delegated Valid encounter within last 12 months To be filled at: [facility] [address] [place] [address] 11-06-2023 NOV 05-11-2024 Ena Mary MA [facility] 2023-11-06 14:45:00 Images from the original note were not included. Venipuncture collection performed by clean technique on the left anticubitus. Total of 1 attempts were made. Slight pressure and a bandage/dressing were applied to the site(s). The patient experienced no complications. The following specimens were processed according to instructions and sent to [facility] [[email or web address]] laboratories per lab order on 11/06/2023: LT BLUE SST 2 RED LAV 2 PPT DK GREEN (LiHep) DK GREEN (SodH) VELOZ DK BLUE (K2) DK BLUE (S) ACD Blood Culture NIPT/NTD [facility] 2023-11-06 13:40:00 Your lab results are [...] appointment. Thanks. Sincerely, Rajni Momin MD, MPH De Icer Element Winder, Department of Family Medicine [facility] [[email or web address]] Primary & Specialty Care - ADC [facility] 2023-11-02 13:14:51 Images from the original note were not included. Last OV: 07/29/23 with Rajni Momin MD Last Refill:09/28/23 prescribed by Rajni Momin MD Last Labs Pertaining to Med:07/29/23 Future Appt: Future Appointments Provider Department Dept Phone 11/06/2023 1:20 PM Rajni Momin MD [facility] Primary [facility], [place] [phone] 11/06/2023 1:40 PM Rajni Momin MD [facility], [place] [phone] 12/03/2023 10:15 AM Royce Hernández MD [facility] Eye Center, [facility] [phone] 04/22/2024 11:30 AM Magnus Martin MD [facility] Endocrinology, [facility] [phone] Requested Renewals Name from pharmacy: Cyclobenzaprine HCl [...] Momin MD Last refill: 09/01/2023 Rx #: [id number] Provider Review Required Ikblui2411/02/2023 12:25 PM Protocol Details This refill cannot be delegated Valid encounter within last 12 months To be filled at: [facility] [address] Raquel Goode MA [facility] 2023-11-02 08:32:11 Pt was made aware to call clinic for f/u if pain did not improve. Alison Samano RN [facility] 2023-10-31 15:52:34 Please schedule appointment for pain if persisent MACHINE GRINDER-FAMILY MIDLEVEL PROVIDER [facility] 2023-10-30 16:42:12 Pt was triaged on 10/28/2023, please see TE. [facility] 2023-10-30 16:31:57 Images from the original note were not included. Placed in nurse folder. Sammi Ruiz [facility] 2023-10-28 15:36:33 Pt states feels a [...] understanding and agrees w/POC. Alison Samano RN [facility] 2023-10-28 15:24:50 Cornelia with [facility] is stating that the patient is [...] radiate anywhere. Please call the patient at [phone] after 2pm. Hermilo Dinh [facility] 2023-10-28 14:24:17 Annual Wellness Visit - Pre Visit Outreach Patient name: Liss Rivera Patient First outreach attempt regarding Annual Wellness Visit. Call outcome: Spoke to patient she stated she has a paper copy already. HRA outcome: paper copy to bring with to appointment Future Appointments Provider Department Dept Phone 10/29/2023 10:00 AM Royce Hernández MD [facility] Eye Center, [facility] [phone] 11/06/2023 1:20 PM Rajni Momin MD [facility] Primary [facility], [place] [phone] 11/06/2023 1:40 PM Rajni Momin MD [facility], [place] [phone] 04/22/2024 11:30 AM Magnus Martin MD [facility] Endocrinology, [facility] [phone] Audrey Bartholomew MA [facility] 2023-10-15 08:57:58 Images from the original note were not included. Episode Summary Report Phylicia Matias [facility] 2023-10-13 11:48:24 Informed Elizabeth with [facility] for re-certification, states done every 3 months for education. Pt has appt 11/2023 for follow up. Alison Samano RN [facility] 2023-10-13 08:50:19 Elizabeth with [facility] long-term health requesting call back to re certify the patient for home health. Please advise. Atul Schwarz [facility] 2023-10-01 13:36:40 Images from the original note were not included. Scanned in folder and placed in provider basket for review. Genna Gray [facility] 2023-09-28 07:26:41 Images from the original [...] Momin MD Last refill: 09/01/2023 Rx #: [id number] Provider Review Required Lkaaap5709/28/2023 05:53 AM Protocol Details This refill cannot be delegated Valid encounter within last 12 months To be filled at: [facility] [address] Recent Visits Date Type Provider Dept 07/29/23 Office Visit Rajni Momin MD [facility] Family Medicine 01/13/23 Office Visit Rajni Momin MD [facility] Family Medicine 09/03/22 Office Visit Rajni Momin MD [facility] Family Medicine 09/03/22 Office Visit Rajni Momin MD [facility] Family Medicine 04/23/22 Office Visit Rajni Momin MD [facility] Family [facility] Showing recent visits within past 540 days with a meds authorizing provider and meeting all other requirements Future Appointments Date Type Provider Dept 11/06/[address] [facility] Family Medicine 11/06/23 Appointment Rajni Momin MD [facility] Showing future appointments within next 150 days with a meds authorizing provider and meeting all other requirements Annika Rebolledo LVN [facility] 2023-09-24 10:06:34 Images from the original note were not included. Faxed to [facility] [[email or web address]] Him department. MET Genna Gray [facility] 2023-08-31 07:59:55 Discharged to self care. F/u with pcp for monitoring FM-FAMILY MEDICINE STAFF [facility] 2023-08-24 12:23:04 Called patient and informed message below per Tanisha. Patient states mrialax has not been helping. Per LILIBETH Sauceda a OV will be recommend. Patient has been schedule for 09-01-2023 at 10:30 am. Ena Mary MA [facility] 2023-08-24 08:33:29 High fiber diet: Plenty [...] clinic for no improvement, for further prescriptions MACHINE GRINDER-FAMILY MIDLEVEL PROVIDER [facility] 2023-08-21 15:24:58 Routing to provider for review and to see if lactulose will be appropriate. [facility] 2023-08-21 14:43:40 Cornelia the patient's home health nurse requesting to speak with nurse. Patient is having some difficulty with constipation and wanting to see if lactulose would be appropriate for the patient and if so if it can be sent to pharmacy. Concerned about it raising her blood sugar. When calling back, please call the patient. Please advise. [facility] [address] [place] [id number] Atul Schwarz [facility] 2023-08-21 09:02:26 Medical record received from Alvin Fernie scanned in folder and placed in provider basket for review. Genna Gray [facility] 2023-08-07 10:13:16 Patient was rescheduled to 08/12. Mirtha Gale [facility] 2023-08-06 07:45:11 Liss Rivera is a 67 year old female Patient is calling to cancel today's Injection appointment, but is requesting to reschedule for some time this month. Please contact when available Lesly Lopez [facility] 2023-07-30 15:46:40 Forms completed and faxed to [phone]. Alison Samano RN [facility] 2023-07-29 16:30:00 Images from the original note were not included. Venipuncture collection performed by clean technique on the left forearm(s). Total of 1 attempts were made. Slight pressure and a bandage/dressing were applied to the site(s). The patient experienced no complications. The following specimens were processed according to instructions and sent to [facility] [[email or web address]] laboratories per lab order on 07/29/2023 : LT BLUE 2 SST RED 2 LAV PPT DK GREEN (LiHep) DK GREEN (SodH) VELOZ DK BLUE (K2) DK BLUE (S) ACD Blood Culture NIPT/NTD Patient has been identified by and name and was provided with cup, antiseptic towelette, and clean catch instructions. 1 urine specimen(s) sent. 1 Unpreserved Urine Culture Aptima tube Other urine [facility] 2023-07-29 15:49:40 Patient here for visit to discuss paper work Raquel Goode MA 07/29/2023 3:50 PM Raquel Goode MA [facility] 2023-07-29 12:43:50 Images from the original note were not included. Forms received Alvin Enciso placed in nurse fax folder. Phylicia Matias [facility] 2023-07-29 12:39:24 Routing to correct clinic Suri Oden LVN [facility] 2023-07-29 12:19:23 Aurelio Alvin [facility] [phone] Received incomplete paperwork for home health Needs a medical diagnosis codes and secondary page to be filled out. Can take info verbally. Requesting expedite attn to this matter, Please F/u Vince Cano [facility] 2023-07-24 16:02:53 Per forms to be filled out at on 07/29/2023. Pt notified, forms in nurse cabinet. Alison Samano RN [facility] 2023-07-23 16:23:18 Images from the original note were not included. Phyliciadenise Matias [facility] 2023-07-02 15:35:51 Images from the original [...] Momin MD Last refill: 06/01/2023 Rx #: [id number] Provider Review Required Likqbk0907/02/2023 03:23 PM Protocol Details This refill cannot be delegated Valid encounter within last 12 months To be filled at: [address] Last Refilled: 06/01/2023 Recent Visits Date Type Provider Dept 01/13/23 Office Visit Rajni Momin MD [facility] 09/03/22 Office Visit Rajni Momin MD [facility] 09/03/22 Office Visit Rajni Momin MD [facility] Family Medicine 04/23/22 Office Visit Rajni Momin MD [facility] 01/17/22 Office Visit Rajni Momin MD [facility] Showing recent visits within past 540 days with a meds authorizing provider and meeting all other requirements Future Appointments Date Type Provider Dept 07/29/[address] [facility] Family Medicine Showing future appointments within next 150 days with a meds authorizing provider and meeting all other requirements LACER Sarita Sneed MA [facility] 2023-06-03 08:20:46 Spoke with patient and [...] she can get her strips. Narvaez LVN [facility] 2023-06-02 15:10:42 Received Medicare Usage Necessity High Utilization form from [employer] requesting Providers signature. Placed in Providers Box. Portillo [facility] 2023-06-02 13:54:20 Liss Rivera is a 67 year old female Patient calling in requesting to speak with Nelida, in regards to her diabetic testing strips. Pt is aware Dr. Martin will not be at the location until Thursday (06/05/23) and the form will be signed and faxed back then. Pt states she's been waiting for over a week. Please advise [phone] Baig [facility] 2023-06-02 13:21:30 [facility] let them know Dr. Martin will not be in this location until Thursday (06/05/23) and the form will be signed and faxed back then. Narvaez LVN [facility] 2023-06-02 12:03:04 [facility] calling to check the status of a Medicare Usage Necessity High Utilization form has been received and completed for rx blood sugar diagnostic (ACCU-CHEK GUIDE TEST STRIPS) strip . Pls advise. Mcgill [facility] 2023-06-02 12:02:10 Liss Rivera is a 67 year old female Pt is calling because she needs her testing strips. Pt states that Dr. Martin needs to fill out a form and send it back to the pharmacy in order for them to fill the RX. Pt tests BS QID. Please advise Carson [facility] 2023-06-01 11:18:30 Rx sent, let patient know, and to follow-up as scheduled. [facility] 2023-06-01 09:17:11 Images from the original note were not included. [facility] Phylicia Matias [facility] 2023-05-29 13:28:27 Images from the original [...] Momin MD Last refill: 03/02/2023 Rx #: [id number] Neuropathic Pain Fcuodu9705/29/2023 05:52 AM Protocol Details Manual Review: Verify no changes in dose in the last 3 months Valid encounter within last 12 months To be filled at: [facility] [address] [place] [address] Recent Visits Date Type Provider Dept 01/13/23 Office Visit Rajni Momin MD [facility] Family Medicine 09/03/22 Office Visit Rajni Momin MD [facility] Family Medicine 09/03/22 Office Visit Rajni Momin MD [facility] Family Medicine 04/23/22 Office Visit Rajni Moimn MD [facility] Family Medicine 01/17/22 Office Visit Rajni Momin MD [facility] Family Medicine Showing recent visits within past 540 days with a meds authorizing provider and meeting all other requirements Future Appointments Date Type Provider Dept 07/29/23 Appointment Rajni Momin MD [facility] Medicine Showing future appointments within next 150 days with a meds authorizing provider and meeting all other requirements Garcia MA [facility] 2023-05-28 08:22:57 Images from the original note were not included. Villatoro [facility] 2023-05-22 08:55:08 Liss Rivera is a 67 year old female [phone] (home) Pt is returning call.pt can take the 06/04 appt if it can be at 2:00 or after if not pt will keep the /8 appt. Please call and advise Tamayo [facility] 2023-05-22 08:29:24 Liss Rivera is a 67 year old female Patient is not able to come on 05/28/23 or 06/04/23. Patient is schedule for 06/11/23. LACER Jocelin Shahid [facility] 2023-05-21 15:01:13 Liss Rivera is a 67 year old female Pt is calling to check other available dates for injections on 05/28/2023. No schedule is available. Please advise. [phone] (home) LACER Peña Krueger [facility] 2023-05-05 07:37:33 Images from the original [...] Momin MD Last refill: 02/09/2023 Rx #: [id number] Neuropathic Pain Rkenao9505/05/2023 05:53 AM Protocol Details Manual Review: Verify no changes in dose in the last 3 months Valid encounter within last 12 months To be filled at: [facility] [address] [place] [address] 01-13-2023 NOV 07-29-2023 LACER Ena Mary MA [facility] 2023-01-08 10:30:00 Formatting of this n ote is different from the original. Images from the original note were not included. Venipuncture collection performed by clean technique on the left anticubitus. Total of 1 attempts were made. Slight pressure and a bandage/dressing were applied to the site(s). The patient experienced no complications. The following specimens were processed according to instructions and sent to [email or web address] laboratories per lab order on 01/08/2023 : LT BLUE SST RED LAV 1 PPT DK GREEN (LiHep) DK GREEN (SodH) VELOZ DK BLUE (K2) DK BLUE (S) ACD Blood Culture NIPT/NTD Patient has been identified by and was provided with cup, antiseptic towelette, and clean catch instructions. 1 urine specimen(s) sent. Unpreserved 1 Urine Culture Aptima tube Other urine [facility] 2022-12-08 11:29:13 Formatting of this n ote might be different from the original. Form signed by provider and faxed to [phone]. Jennifer Almeida RN [facility] 2022-11-27 11:06:57 Formatting of this n ote might be different from the original. Medical Necessity form for high utilization [facility] Form completed and placed in provider's folder for review and signature. Will fax to [phone] once completed Derrick Rodríguez RN [facility] 2022-11-22 14:45:49 Formatting of this n ote might be different from the original. NOV: 03/20/23 SASKIA: 08/22/22 Refill sent Jennifer Almeida RN [facility] 2022-11-18 15:22:35 Formatting of this n ote might be different from the original. Images from the original note were not included. T [facility]
[2024-12-28 03:33] LABS: Absolute Lymphocytes (CBC) 2.1 K/uL (0.7-4.9); Hematocrit 36.7 % (36.0-45.0); Hemoglobin 12.7 g/dL (12.0-15.0); MCH 31.1 pg (27.0-35.0); MCHC 34.5 g/dL (32.0-36.0); MCV 90.2 fL (80-100); MPV 8.1 fL (7.6-11.3); Nucleated RBC Absolute Count 0.0 (0-0); Nucleated Red Blood Cells % 0.1 % (0-0); RBC Red Blood Cell Count 4.07 M/uL (3.86-4.86); White Blood Count 8.20 thou/uL (4.3-10.9)
[2024-12-28 03:43] LABS: ALT/SGPT 25 U/L (13-56); AST/SGOT 16 U/L (15-37); Albumin 3.3 g/dL (3.4-5.0); Albumin/Globulin Ratio 0.8 (1.1-1.8); Alkaline Phosphatase 113 U/L (45-117); Anion Gap 7.8 mEq/L (5.0-15.0); BUN Blood Urea Nitrogen 18 mg/dL (7-18); Globulin 4.1 g/dL (2.3-3.5); Glucose Level 282 mg/dL (74-106); Potassium 3.8 mEq/L (3.5-5.1); Troponin High Sensitivity 3.0 pg/mL (<58.9)
[2024-12-28 03:59] LABS: Bilirubin Indirect, Calculated 0.0 mg/dL (0.2-0.8)
--- NOTE | 2024-12-28 04:31 | EDPHYS ---
Physician Documentation [facility] Name: Liss Ro Age: 69 yrs Sex: Female : 1955 Arrival Date: 12/28/2024 Time: 00:45 Bed 15 Private MD: ED Physician Lucio Saldana HPI: 12/28 01:23 This 69 yrs old Female presents to ER via EMS with unknown complaint. tw 01:23 69-year-old female with a past medical history of hypertension, diabetes, anxiety, tw7 vertigo presents ED today with complaints of hyperglycemia and dizziness. Patient reports that she was at home tonight and she checked her blood sugar before going to bed and it was 290 so she was concerned and came to the ER. She reports that she took her Humalog after eating dinner and that she took her Lantus after checking her blood sugar and it being elevated this evening. She took her Lantus at about 10 PM. She reports that she has some dizziness that she feels like lightheadedness that she cannot pass out but that she has not had any loss of consciousness. She denies chest pain, shortness of breath, abdominal pain, nausea, vomiting. Denies dysuria denies fever or any other concerns symptoms at this time.. Historical: - Immunization history:: Adult Immunizations up to date, Client reports having NOT received the Covid vaccine. Last tetanus immunization: unknown, Pneumococcal vaccine is not up to date, Flu vaccine is not up to date. - Infectious Disease History:: Denies. - Social history:: Smoking status: Patient reports the use of cigarette tobacco products, no, Patient/guardian denies using alcohol, street drugs. ROS: 01:25 Neuro: Positive for dizziness, Negative for altered mental status, gait disturbance, tw7 headache, hearing loss, loss of consciousness, numbness, seizure activity, speech changes, syncope, tingling, tinnitus, tremor, visual changes, weakness, 01:25 Constitutional: Negative for fever, chills, and weight loss, ENT: Negative for injury, tw7 pain, and discharge, Neck: Negative for injury, pain, and swelling, Cardiovascular: Negative for chest pain, palpitations, and edema, Respiratory: Negative for shortness of breath, cough, wheezing, and pleuritic chest pain, Abdomen/GI: Negative for abdominal pain, nausea, vomiting, diarrhea, and constipation, MS/Extremity: Negative for injury and deformity, Skin: Negative for injury, rash, and discoloration, 01:25 Endocrine: Positive for Negative for Exam: :28 Constitutional: This is a well developed, well nourished patient who is awake, alert, tw7 and in no acute distress. Head/Face: Normocephalic, atraumatic. Eyes: Pupils equal round and reactive to light, extra-ocular motions intact. Lids and lashes normal. Conjunctiva and sclera are non-icteric and not injected. Cornea within normal limits. Periorbital areas with no swelling, redness, or edema. ENT: Nares patent. No nasal discharge, no septal abnormalities noted. Tympanic membranes are normal and external auditory canals are clear. Oropharynx with no redness, swelling, or masses, exudates, or evidence of obstruction, uvula midline. Mucous membranes moist. Neck: Trachea midline, no thyromegaly or masses palpated, and no cervical lymphadenopathy. Supple, full range of motion without nuchal rigidity, or vertebral point tenderness. No Meningismus. Chest/axilla: Normal chest wall appearance and motion. Nontender with no deformity. No lesions are appreciated. Cardiovascular: Regular rate and rhythm with a normal S1 and S2. No gallops, murmurs, or rubs. Normal PMI, no JVD. No pulse deficits. Respiratory: Lungs have equal breath sounds bilaterally, clear to auscultation and percussion. No rales, rhonchi or wheezes noted. No increased work of breathing, no retractions or nasal flaring. Abdomen/GI: Soft, non-tender, with normal bowel sounds. No distension or tympany. No guarding or rebound. No evidence of tenderness throughout. Negative Gamboa's. Negative McBurney's MS/ Extremity: Pulses equal, no cyanosis. Neurovascular intact. Full, normal range of motion. Neuro: Awake and alert, GCS 15, oriented to person, place, time, and situation. Cranial nerves II-XII grossly intact. Motor strength 5/5 in all extremities. Sensory grossly intact. Cerebellar exam normal. Normal gait. 06:51 ECG was reviewed by the Attending Physician. tw7 Vital Signs: 00:49 BP 174 / 84; Pulse 99; Resp 18; Temp 98.2; Pulse Ox 98% on R/A; Weight 77.11 kg; Height kt5 4 ft. 11 in. ; 01:51 BP 140 / 78; Pulse 88; Resp 18 S; Pulse Ox 99% on R/A; kt5 02:24 BP 139 / 69; Pulse 70; Resp 18 S; Pulse Ox 98% on R/A; kt5 03:18 BP 135 / 72; Pulse 78; Resp 18 S; Pulse Ox 98% on R/A; kt5 04:14 BP 133 / 68; Pulse 73; Resp 18 S; Pulse Ox 99% on R/A; kt5 00:49 Body Mass Index 34.34 (77.11 kg, 149.86 cm) kt5 MDM: 01:21 Medical Screening Exam initiated tw7 06:24 Data reviewed: vital signs, nurses notes. ED course: . tw7 06:51 ED course: Lab work performed shows patient has hyperglycemia. Patient has no anion tw7 gap. Normal bicarb. Normal electrolytes. Normal LFTs. Negative bilirubin negative troponin. Chest x-ray performed shows no acute cardiopulmonary abnormality. Patient was monitored in the ED for multiple hours without any evidence of dysrhythmia no clear cause of patient's palpitations. Regarding patient's hyperglycemia improved with IV fluid. On reassessment patient reports feeling much better, no evidence of dysrhythmia in the ED, hyperglycemia improved. Patient is discharged with outpatient PCP and cardiology follow-up.. 12/28 01:12 Order name: Glucose, Ancillary Testing; Complete Time: 03:16 EDND 12/28 01:20 Order name: Basic Metabolic Panel; Complete Time: 04:28 7 12/28 01:20 Order name: CBC with Diff; Complete Time: 03:48 7 12/28 01:20 Order name: LFT's; Complete Time: 04:28 7 12/28 01:20 Order name: Troponin HS; Complete Time: 04:28 7 12/28 01:20 Order name: XRAY Chest (1 view); Complete Time: 06:45 tw7 12/28 01:20 Order name: Cardiac monitoring; Complete Time: 01:32 12/28 01:20 Order name: EKG - Nurse/Tech; Complete Time: 01:50 12/28 01:20 Order name: IV Saline Lock; Complete Time: 01:32 tw7 12/28 01:20 Order name: Labs collected and sent; Complete Time: 01:32 tw7 12/28 01:20 Order name: O2 Sat Monitoring; Complete Time: :33 7 EC:51 Rate is 95 beats/min. Rhythm is regular. Left axis deviation noted. No ST changes noted.tw7 Administered Medications: 04:45 Not Given (Patient Refused): ns 0.9% 1000 ml IV at 1000 ml once; to be given as a bolus kt5 over 60 minutes Disposition Summary: 12/28/24 04:30 Discharge Ordered Notes: Location: Home tw7 Problem: chronic tw7 Symptoms: have improved tw7 Condition: Stable tw7 Diagnosis - Hyperglycemia, unspecified tw7 Followup: tw - With: Terrell Beck MD - When: Tomorrow - Reason: Re-evaluation by your physician Discharge Instructions: - Discharge Summary Sheet - Hyperglycemia tw Forms: - Medication Reconciliation Form 7 - Antibiotic Education 7 - Prescription Opioid Use 7 - Patient Portal Instructions 7 - Leadership Thank You Letter Signatures: Dispatcher [employer] Lucio Romero MD MD 7 Estee Laws, RN RN kt5 Corrections: (The following items were deleted from the chart) 00:55 00:53 PMHx: Diabetes - IDDM; kt5 00:55 00:53 PMHx: Hypertension; kt5 00:55 00:53 PMHx: Herniated disc; kt5 5 00:55 00:53 PMHx: Anxiety; kt5 5 00:55 00:53 PMHx: PTSD; kt5 5 00:55 00:53 PMHx: Positional Vertigo; kt5 5 00:55 00:53 PSHx: section; kt5 5 00:55 00:53 PSHx: Cholecystectomy; kt5 5 00:55 00:53 PSHx: carpal tunnel; kt5 5 00:55 00:53 PSHx: hysterectomy; kt5 5 01:21 01:21 BASIC METABOLIC PANEL+C.LAB.BRZ ordered. EDMS EDMS : 01:21 CBC+H.LAB.BRZ ordered. EDMS EDMS : 01:21 HEPATIC FUNCTION+C.LAB.BRZ ordered. EDMS EDMS : 01:21 Troponin High Sensitivity+C.LAB.BRZ ordered. EDMS EDMS : 01:21 Chest Single View+RAD.RAD.BRZ ordered. EDMS EDMS
--- NOTE | 2024-12-28 04:31 | ER ---
Nurse's Notes [facility] Name: Liss Ro Age: 69 yrs Sex: Female : 1955 Arrival Date: 12/28/2024 Time: 00:45 Bed 15 Private MD: Diagnosis: Hyperglycemia, unspecified Presentation: 12/28 00:49 Chief complaint: EMS states: hyperglcemia, palpitations, dizziness and anxiety. kt5 Coronavirus screen: Client denies travel out of the [place] in the last 14 days. Ebola Screen: No symptoms or risks identified at this time. Initial Sepsis Screen: Does the patient meet any 2 criteria? No. Patient's initial sepsis screen is negative. Does the patient have a suspected source of infection? No. Patient's initial sepsis screen is negative. Risk Assessment: Do you want to hurt yourself or someone else? Patient reports no desire to harm self or others. Onset of symptoms was December 27, 2024 at 21:00. Care prior to arrival: 20g/lac Medication(s) given: none ekg sr. 00:49 Method Of Arrival: EMS: [facility] kt5 00:49 Acuity: MALINI 3 kt5 Triage Assessment: 00:53 General: Appears in no apparent distress. comfortable, Behavior is calm, cooperative, kt5 appropriate for age. Pain: Denies pain. Neuro: No deficits noted. Pearl Agitation-Sedation Scale (RASS): 0 - Alert and Calm Level of Consciousness is awake, alert, obeys commands, Oriented to person, place, time. Cardiovascular: Reports lightheadedness, palpitations, Denies chest pain, shortness of breath, Heart tones S1 S2 present Capillary refill < 3 seconds is brisk Pulses are all present. Edema is absent. Rhythm is sinus rhythm. Respiratory: No deficits noted. Airway is patent Trachea midline Respiratory effort is even, unlabored, Respiratory pattern is regular, symmetrical. GI: No deficits noted. No signs and/or symptoms were reported involving the gastrointestinal system. Abdomen is round non-distended, Bowel sounds present X 4 quads. Abd is soft and non tender X 4 quads. : No deficits noted. No signs and/or symptoms were reported regarding the genitourinary system. Derm: No deficits noted. No signs and/or symptoms reported regarding the dermatologic system. Skin is intact, is healthy with good turgor, Skin is dry, Skin is pink, warm \T\ dry. Musculoskeletal: No deficits noted. No signs and/or symptoms reported regarding the musculoskeletal system. Historical: - Immunization history:: Adult Immunizations up to date, Client reports having NOT received the Covid vaccine. Last tetanus immunization: unknown, Pneumococcal vaccine is not up to date, Flu vaccine is not up to date. - Infectious Disease History:: Denies. - Social history:: Smoking status: Patient reports the use of cigarette tobacco products, no, Patient/guardian denies using alcohol, street drugs. Screenin:58 [facility] ED Fall Risk Assessment (Adult) History of falling in the last 3 months, kt5 including since admission No falls in past 3 months (0 pts) Confusion or Disorientation No (0 pts) Intoxicated or Sedated No (0 pts) Impaired Gait No (0 pts) Mobility Assist Device Used No (0 pt) Altered Elimination No (0 pt) Score/Fall Risk Level 0 - 2 = Low Risk. Abuse screen: Denies threats or abuse. Denies injuries from another. Nutritional screening: No deficits noted. Tuberculosis screening: No symptoms or risk factors identified. Assessment: 00:58 General: see triage note. kt5 01:33 General: pt up ambulating to rr w/o complications. kt5 02:24 Reassessment: Patient appears in no apparent distress at this time. No changes from kt5 previously documented assessment. Patient is alert, oriented x 3, equal unlabored respirations, skin warm/dry/pink. Patient denies pain at this time. Patient states feeling better. Patient states symptoms have improved. 02:25 General: tech at for pcxr. kt5 03:18 Reassessment: Patient appears in no apparent distress at this time. No changes from kt5 previously documented assessment. Patient is alert, oriented x 3, equal unlabored respirations, skin warm/dry/pink. Patient denies pain at this time. Patient states feeling better. Patient states symptoms have improved. 04:14 Reassessment: No changes from previously documented assessment. Patient is alert, kt5 oriented x 3, equal unlabored respirations, skin warm/dry/pink. Patient denies pain at this time. Patient states feeling better. Patient states symptoms have improved. Vital Signs: 00:49 BP 174 / 84; Pulse 99; Resp 18; Temp 98.2; Pulse Ox 98% on R/A; Weight 77.11 kg; Height kt5 4 ft. 11 in. ; 01:51 BP 140 / 78; Pulse 88; Resp 18 S; Pulse Ox 99% on R/A; kt5 02:24 BP 139 / 69; Pulse 70; Resp 18 S; Pulse Ox 98% on R/A; kt5 03:18 BP 135 / 72; Pulse 78; Resp 18 S; Pulse Ox 98% on R/A; kt5 04:14 BP 133 / 68; Pulse 73; Resp 18 S; Pulse Ox 99% on R/A; kt5 00:49 Body Mass Index 34.34 (77.11 kg, 149.86 cm) kt5 ED Course: 00:49 Patient arrived in ED. ha1 00:49 Estee Laws, RN is Primary Nurse. kt5 00:53 Triage completed. kt5 00:58 Patient has correct armband on for positive identification. Placed in gown. Bed in low kt5 position. Call light in reach. Side rails up X 1. Client placed on continuous cardiac and pulse oximetry monitoring. NIBP monitoring applied. hospital monitor on. Door closed. Noise minimized. Warm blanket given. Pillow given. 01:19 Lucio Saldana MD is Attending Physician. tw7 01:33 Basic Metabolic Panel Sent. kt5 02:32 XRAY Chest (1 view) In Process Unspecified. EDMS 04:29 Terrell Beck MD is Referral Physician. tw7 04:44 Provided Education on: follow up. kt5 04:44 No provider procedures requiring assistance completed. IV discontinued, intact, kt5 bleeding controlled, No redness/swelling at site. Pressure dressing applied. 04:45 Patient none. kt5 Administered Medications: 04:45 Not Given (Patient Refused): ns 0.9% 1000 ml IV at 1000 ml once; to be given as a bolus kt5 over 60 minutes Medication: 00:58 VIS not applicable for this client. kt5 Outcome: 04:30 Discharge ordered by . tw7 04:44 Discharged to home ambulatory, kt5 04:44 Condition: improved 04:44 Discharge instructions given to patient, Instructed on discharge instructions, follow up and referral plans. Demonstrated understanding of instructions, follow-up care, medications, 05:02 Patient left the ED. kt5 Signatures: Dispatcher [employer] Etelvina Thakkar RN RN ha1 Lucio Saldana MD MD tw7 Estee Laws RN RN kt5 Corrections: (The following items were deleted from the chart) 00:55 00:53 PMHx: Diabetes - IDDM; kt5 kt5 00: 00:53 PMHx: Hypertension; kt5 kt5 00: 00:53 PMHx: Herniated disc; kt5 kt5 : 00:53 PMHx: Anxiety; kt5 kt5 00: 00:53 PMHx: PTSD; kt5 kt5 00: 00:53 PMHx: Positional Vertigo; kt5 kt5 00: 00:53 PSHx: section; kt5 kt5 : 00:53 PSHx: Cholecystectomy; kt5 kt5 00:55 00:53 PSHx: carpal tunnel; kt5 kt5 00:55 00:53 PSHx: hysterectomy; kt5 kt5
--- NOTE | 2024-12-28 05:31 | RAD REPORT ---
EXAM DESCRIPTION: XR CHEST 1 VIEW 12/28/2024 3:21 AM CDT CLINICAL HISTORY: 69 years, Female, Congestion. COMPARISON: XR Chest 12/30/2023. FINDINGS: 1 view of the chest (AP portable projection) was obtained. Prior films were compared. There is norm al lung volume. Mediastinum: The cardiomediastinal silhouette appears normal in size and shape. Lungs: No areas of consolidations or masses are identified. Heart: The heart is normal in size. Thoracic aorta: The thoracic aorta demonstrate to be mildly tortuous. Pulmonary vasculature: The pulmonary vasculature is normal in distribution. Pleura: The costophrenic angles demonstrate to be sharp. Mild elevation right hemidiaphragm Osseous structures: The bony structures demonstrate to be within normal limits. Other: External EKG leads within the [id number] limits diagnosis. IMPRESSION: No acute cardiopulmonary disease is seen Electronically signed by: Javed Cash MD 12/28/2024 03:32 AM CDT Due to temporary technical issues with the [employer] reporting system, reports are being monalisa d by the in-house radiologist without review as a courtesy to ensure prompt reporting the interpreting radiologist is fully responsible for the content of the report. Transcribed Date/Time: 12/28/2024 5:31 AM
[2024-12-28 10:43] VITALS: TEMP 98.2
[2024-12-28 10:49] VITALS: BP 133/68; O2SAT 99
== END 2024-12-28 05:02 | disposition home or self-care (01) ==
LOC: ER 00:45
DX: E11.65 Type 2 diabetes mellitus with hyperglycemia (principal); I10 Essential (primary) hypertension; Z72.0 Tobacco use
CPT/HCPCS: 36415; 71045; 80048; 80076; 82947; 84484; 85025; 93005